=== PATIENT | female | born 1960 | race Caucasian/White ===

== ENCOUNTER → 2016-12-29 | Outpatient (CLI) | payer OTHER ==
--- NOTE | 2016-12-29 14:47 | BD ---
EXAMINATION TYPE: MG DEXA axial skeleton. DATE OF EXAM: 12/29/2016 1:14 PM CLINICAL HISTORY: Height: 63.5 Weight: 113 FRAX RISK QUESTIONS: Alcohol (3 or more units per day): no Family History (Parent hip fracture): no Glucocorticoids (More than 3mos): yes, off & on (Ex: prednisone, prednisolone, methylprednisolone, dexamethasone, and hydrocortisone). History of Fracture in Adulthood: yes Secondary Osteoporosis: 1. Type 1 Diabetes: no 2. Hyperthyroidism: no 3. Menopause before 45: no 4. Malnutrition: no 5. Chronic liver disease: no Rheumatoid Arthritis: unsure, was just tested Current Tobacco Use: yes RISK FACTORS HISTORY OF: History of Fracture: yes, bilateral femurs in AA When: young adult Surgery to Hip(right/left): yes, both had femoral rods, now removed When: young adult Family History of Osteoporosis: yes, sister Drink Alcohol: no Active: yes Diet low in dairy products/other sources of calcium: at least one serving a day Postmenopausal woman: yes Take estrogen and/or progesterone medications: no Lost more than 2 inches in height since high school: no Frequent falls: yes Poor Health: somewhat Hyperparathyroidism: no Adrenal Insufficiency: no MEDICATIONS: Prednisone or other steroids: yes How Long: at least since 2004 Thyroid Medications: no Osteoporosis Medications: not now Which medication: Fosamax How Lon-4 years Additional Medications: calcium & Vitamin D(as a prescription), cholesterol meds, blood pressure meds , Additional History: ulcerative colitis, MS, degenerative disc, bronchial attacks, back injections of steroids EXAM MEASUREMENTS: Bone mineral densitometry was performed using the [employer] System. Bone mineral density as measured about the Lumbar spine is: ----- L1-L4(G/cm2): 0.906 T Score Values are as follows: ----- L2: -2.7 ----- L3: -2.5 ----- L4: -2.4 ----- L1-L4: -2.3 Bone mineral density has: Decreased -9.9% since study of: 04/06/2005 IMPRESSION: Osteoporosis (T Score less than -2.5) as noted by T Score values at the L3 & L4 There is increased fracture risk and therapy is usually indicated based on age. Re-Screen 1-2 years. NOTE: T-SCORE=SD OF THE YOUNG ADULT MEAN.
--- NOTE | 2016-12-30 08:17 | MM ---
Reason for exam: screening (asymptomatic). Last mammogram was performed 1 year and 2 months ago. History: Patient is postmenopausal. Family history of breast cancer in sister at age 57. Took hormonal contraceptives for 5 years. Physical Findings: A clinical breast exam by your physician is recommended on an annual basis and results should be correlated with mammographic findings. MG Screening Mammo w CAD Bilateral CC and MLO view(s) were taken. Prior study comparison: October 28, 2015, bilateral MG screening mammo w CAD. July 09, 2014, bilateral MG screening mammo w CAD. The breast tissue is heterogeneously dense. This may lower the sensitivity of mammography. Finding: There are grouped/clustered calcifications in the left breast. New finding since October 28, 2015 and July 09, 2014. ASSESSMENT: Incomplete: need additional imaging evaluation, BI-RAD 0 RECOMMENDATION: Special view mammogram of the left breast. [facility] will attempt to contact patient to return for supplemental views.
== END | disposition home or self-care (01) ==
LOC: RADMAMWWP 12:01
PROVIDERS: ATTEND Pediatrics
DX: Z12.31 Encounter for screening mammogram for malignant neoplasm of breast (principal); M81.0 Age-related osteoporosis without current pathological fracture
CPT/HCPCS: 77080; G0202

== ENCOUNTER → 2017-01-05 | Outpatient (CLI) | payer OTHER ==
--- NOTE | 2017-01-05 14:14 | MM ---
Reason for exam: additional evaluation requested from abnormal screening. Last mammogram was performed less than 1 month ago. History: Patient is postmenopausal. Family history of breast cancer in sister at age 57. Took hormonal contraceptives for 5 years. Physical Findings: Nurse did not find any significant physical abnormalities on exam. MG Work Up Mamm w CAD LT CC and MLO view(s) were taken of the left breast. Prior study comparison: December 29, 2016, bilateral MG screening mammo w CAD. October 28, 2015, bilateral MG screening mammo w CAD. No suspicious grouped calcifications persists on additional views. Dense tissue noted. These results were verbally communicated with the patient and result sheet given to the patient on 01/05/17. ASSESSMENT: Incomplete: need additional imaging evaluation, BI-RAD 0 RECOMMENDATION: Ultrasound of the left breast. (dense tissue and pain)
--- NOTE | 2017-01-05 14:23 | USB ---
Reason for exam: additional evaluation requested from abnormal screening. History: Patient is postmenopausal. Family history of breast cancer in sister at age 57. Took hormonal contraceptives for 5 years. US Breast Workup Limited LT Left breast ultrasound demonstrates no cystic or solid lesion seen. These results were verbally communicated with the patient and result sheet given to the patient on 01/05/17. ASSESSMENT: Negative, BI-RAD 1 RECOMMENDATION: Return to routine screening mammogram schedule for both breasts. Manage patient on a clinical basis.
== END | disposition home or self-care (01) ==
LOC: RADMAMWWP 13:08
PROVIDERS: ATTEND Pediatrics
DX: R92.8 Other abnormal and inconclusive findings on diagnostic imaging of breast (principal)
CPT/HCPCS: 76642; G0206

== ENCOUNTER → 2017-07-20 | Outpatient (CLI) | payer OTHER ==
--- NOTE | 2017-07-20 14:01 | MR ---
EXAMINATION TYPE: MR cspine/tspine/lspine wo con DATE OF EXAM: 07/20/2017 1:15 PM COMPARISON: NONE HISTORY: Cervicalgia , Tsp pain, Lumbago Multiplanar MultiSpin echo imaging of the cervical spine was performed. Comparison: August 28, 2015 C2-C3: No evidence for degenerative disc disease. No disc bulge/herniation or protrusion. No Canal stenosis. Foramina are patent bilaterally. C3-C4: No evidence for degenerative disc disease. No disc bulge/herniation or protrusion. No Canal stenosis. Foramina are patent bilaterally. C4-C5: There is mild disc desiccation. Mild posterocentral disc bulge noted. No disc herniation or pr otrusion. Grade 1 anterolisthesis of C4 on C5 of 3 mm related to degenerative changes of the cervical apophyseal joints. C5-C6: Mild to moderate disc desiccation with posterior disc bulge. Mild effacement ventral thecal sa c. No evidence for cord contact or central stenosis. Mild left foraminal encroachment secondary to de generative change of the cervical apophyseal joints. C6-C7: Mild disc desiccation with small left paracentral disc protrusion. Mild effacement ventral the jos sac. No evidence for cord contact or central stenosis. Mild right foraminal encroachment. C7-T1: No evidence for degenerative disc disease. No disc bulge/herniation or protrusion. No Canal stenosis. Foramina are patent bilaterally. Cervical segments are intact. Cervical spinal cord is of normal signal. Craniovertebral junction re lationships are within normal limits. IMPRESSION: 1. Stable degenerative disc disease with small disc protrusion at C6-7 with Varying degrees of forami nal encroachment. See above. EXAMINATION TYPE: MR cspine/tspine/lspine wo con DATE OF EXAM: 07/20/2017 1:15 PM COMPARISON: 12/17/2014 HISTORY: Cervicalgia , Tsp pain, Lumbago Multiplanar MultiSpin echo imaging of the thoracic spine was performed. Disc spaces: T4-5: There is a mild central and left paracentral disc bulge This is effacing the thecal sac without definite neural compression. T5-6: There is a right paracentral disc protrusion deforming the thecal sac with minimal cord contact and mild posterior displacement. T6-7: There is a tiny, right paracentral disc protrusion the effacing and mildly deforming the thecal sac without cord contact. T7-T8 :There is a right paracentral disc protrusion deforming the thecal sac without definite neural compression. T8-T9 There is a small, central and left paracentral disc protrusion mildly deforming the thecal sac without definite neural compression. Overall the appearance is unchanged relative to the prior study. No additional disc pathology is seen . Spinal canal: No evidence for canal stenosis. No intrinsic or extrinsic lesion. Thoracic spinal cord: Thoracic spinal cord is of normal caliber and signal. Paraspinal soft tissues: No evidence for paraspinal mass. No destructive lesions seen. Vertebral segments: No evidence for fracture or bony lesion. IMPRESSION: 1. Stable multilevel degenerative disc disease with varying disc protrusions as noted. No definite co rd abnormality. EXAMINATION TYPE: MR cspine/tspine/lspine wo con DATE OF EXAM: 07/20/2017 1:15 PM COMPARISON: 03/13/2011 HISTORY: Cervicalgia , Tsp pain, Lumbago Multiplanar, MultiSpin echo imaging of the lumbar spine was performed. L1-L2: Normal disc appearance without desiccation. No herniation, protrusion or disc bulging. No ca nal stenosis is present. Foramina are patent bilaterally. L2-L3: Normal disc appearance without desiccation. No herniation, protrusion or disc bulging. No ca nal stenosis is present. Foramina are patent bilaterally. L3-L4: Normal disc appearance without desiccation. No herniation, protrusion or disc bulging. No ca nal stenosis is present. Foramina are patent bilaterally. L4-L5: Mild disc desiccation noted. Left paracentral disc herniation resulting in left lateral recess stenosis and left foraminal encroachment. No evidence for central stenosis. L5-S1: Moderate disc desiccation identified. Broad-based posterior disc bulge without lopez herniatio n or central stenosis. Foramina are patent bilaterally. Lumbar segments are intact. No paraspinal masses are identified. Conus medullaris has a normal appe arance. IMPRESSION: 1. Left paracentral disc herniation at L4-5 resulting in left lateral recess stenosis and foraminal e ncroachment. 2. Broad-based disc bulge at L5-S1 without lopez herniation or central stenosis.
== END | disposition home or self-care (01) ==
LOC: RADMRIMAIN 11:50
PROVIDERS: ATTEND Psychiatry & Neurology Pain Medicine
DX: M48.06 Spinal stenosis, lumbar region (principal); M51.27 Other intervertebral disc displacement, lumbosacral region; M50.223 Other cervical disc displacement at C6-C7 level; M51.24 Other intervertebral disc displacement, thoracic region; M50.30 Other cervical disc degeneration, unspecified cervical region; M51.34 Other intervertebral disc degeneration, thoracic region
CPT/HCPCS: 72141; 72146; 72148

== ENCOUNTER → 2017-08-27 | Outpatient (CLI) | payer OTHER ==
[2017-08-27 16:15] LABS: AST 35 U/L (14-36); Blood Urea Nitrogen 10 mg/dL (7-17); CH 34.5; CHCM 32.6; Calcium 8.9 mg/dL (8.4-10.2); Carbon Dioxide 31 mmol/L (22-30); Glucose 90 mg/dL (74-99); HCT 42.2 % (34.0-46.0); HDW 2.24; MCH 35.4 pg (25.0-35.0); MCHC 33.2 g/dL (31.0-37.0); MCV 106.4 fL (80.0-100.0); Macrocytosis Moderate; Mean Platelet Volume 8.7; Non-African American GFR(MDRD) >60 (>60 ml/min/1.73 sqM); Potassium 4.9 mmol/L (3.5-5.1); RBC 3.97 m/uL (3.80-5.40); RDW 14.1 % (11.5-15.5); Sodium 136 mmol/L (137-145); Total Bilirubin 0.2 mg/dL (0.2-1.3); Total Protein 6.4 g/dL (6.3-8.2); WBC 13.1 k/uL (3.8-10.6)
[2017-08-27 16:16] LABS: ALT 39 U/L (9-52); Alkaline Phosphatase 104 U/L (38-126); Anion Gap 8 mmol/L; Chloride 97 mmol/L (98-107)
[2017-08-27 16:41] LABS: Hepatitis B Surface Ag Index 0.07
== END | disposition home or self-care (01) ==
LOC: LABWHC1 14:56
PROVIDERS: ATTEND Psychiatry & Neurology Neurology
DX: Z01.812 Encounter for preprocedural laboratory examination (principal); G35 Multiple sclerosis
CPT/HCPCS: 36415; 80053; 85027; 86704; 86705; 86706; 87340

== ENCOUNTER → 2017-12-24 | Outpatient (CLI) | payer OTHER ==
[2017-12-24 17:00] LABS: Basophils % (A) 0 %; Eosinophils # (A) 0.1 k/uL (0-0.7); Eosinophils % (A) 1 %; HGB 13.1 gm/dL (11.4-16.0); Lymphocytes # (A) 0.8 k/uL (1.0-4.8); Lymphocytes % (A) 10 %; MCH 33.4 pg (25.0-35.0); MCHC 32.6 g/dL (31.0-37.0); MCV 102.5 fL (80.0-100.0); Macrocytosis Slight; Mean Platelet Volume 8.9; Monocytes # (A) 0.2 k/uL (0-1.0); Monocytes % (A) 3 %; Neutrophils # (A) 6.7 k/uL (1.3-7.7); Neutrophils % (A) 86 %; Platelet Count 218 k/uL (150-450); RDW 13.5 % (11.5-15.5); WBC 7.8 k/uL (3.8-10.6)
[2017-12-24 17:14] LABS: ALT 45 U/L (9-52); AST 50 U/L (14-36); Albumin 4.1 g/dL (3.5-5.0); Alkaline Phosphatase 91 U/L (38-126); Anion Gap 10 mmol/L; Blood Urea Nitrogen 6 mg/dL (7-17); Calcium 9.5 mg/dL (8.4-10.2); Carbon Dioxide 29 mmol/L (22-30); Chloride 103 mmol/L (98-107); Cholesterol 205 mg/dL (<200); Glucose 102 mg/dL (74-99); HDL Cholesterol 76 mg/dL (40-60); LDL Cholesterol,Calculated 98 mg/dL (0-99); Potassium 4.3 mmol/L (3.5-5.1); Sodium 142 mmol/L (137-145); Total Bilirubin 0.2 mg/dL (0.2-1.3); Total Protein 6.7 g/dL (6.3-8.2); Triglycerides 153 mg/dL (<150)
[2017-12-25 01:15] LABS: HIV AB P24 Non-Reactive (Non-Reactive); HIV P24 AG Non-Reactive (Non-Reactive)
[2017-12-25 01:19] LABS: Hemoglobin A1C 5.8 % (4.0-6.0)
[2017-12-25 02:02] LABS: Folate, Serum 18.5 ng/mL
[2017-12-27 07:36] LABS: Vitamin B1 76 ug/L (38-122)
[2017-12-27 08:48] LABS: Vitamin B6 16 ug/L (5-50)
[2018-01-01 07:06] LABS: Nicotinuric Acid None Detected
== END | disposition home or self-care (01) ==
LOC: LABWHC1 16:31
PROVIDERS: ATTEND Psychiatry & Neurology Pain Medicine
DX: Z00.00 Encounter for general adult medical examination without abnormal findings (principal); E78.5 Hyperlipidemia, unspecified; G35 Multiple sclerosis; Z51.81 Encounter for therapeutic drug level monitoring
CPT/HCPCS: 36415; 80053; 80061; 82607; 82746; 83036; 84207; 84425; 84591; 85025; 86480; 87390

== ENCOUNTER → 2018-03-23 | Outpatient (CLI) | payer OTHER ==
--- NOTE | 2018-03-23 14:16 | US ---
EXAMINATION TYPE: US carotid duplex BILAT DATE OF EXAM: 03/23/2018 COMPARISON: NONE CLINICAL HISTORY: R55 SYNCOPE. EXAM MEASUREMENTS: RIGHT: Peak Systolic Velocity (PSV) cm/sec ----- Right CCA: 91.7 ----- Right ICA: 91.3 ----- Right ECA: 71.5 ICA/CCA ratio: 1.0 RIGHT: End Diastole cm/sec ----- Right CCA: 23.5 ----- Right ICA: 40.8 ----- Right ECA: 15.9 LEFT: Peak Systolic Velocity (PSV) cm/sec ----- Left CCA: 75.3 ----- Left ICA: 114.1 ----- Left ECA: 66.9 ICA/CCA ratio: 1.5 LEFT: End Diastole cm/sec ----- Left CCA: 28.5 ----- Left ICA: 44.6 ----- Left ECA: 23.2 VERTEBRALS (direction of flow): Right Vertebral: Antegrade Left Vertebral: Antegrade Rhythm: IMPRESSION: 1. Intimal thickening and mild atherosclerotic plaque with no significant hemodynamic stenosis. Criteria for Assigning % of Stenosis / Diameter reduction (Estimation based on the indirect measurements of the internal carotid artery velocities (ICA PSV). 1. Normal (no stenosis)=ICA PSV < 125 cm/s: ratio < 2.0: ICA EDV<40 cm/s. 2. Less than 50% stenosis=ICA PSV < 125 cm/s: ratio < 2.0: ICA EDV<40 cm/s. 3. 50 to 69% stenosis=ICA PSV of 125 to 230 cm/s: ration 2.0 ? 4.0: ICA EDV 40-100 cm/s. 4. Greater than 70% stenosis to near occlusion= ICA PSV > 230 cm/s: ratio > 4.0: ICA EDV > 100 cm/s. 5. Near occlusion= ICA PSV velocities may be low or undetectable: variable ratio and ICA EDV. 6. Total occlusion=unable to detect flow.
== END | disposition home or self-care (01) ==
LOC: RADUSWWP 13:04
PROVIDERS: ATTEND Psychiatry & Neurology Neurology
DX: I77.89 Other specified disorders of arteries and arterioles (principal); I70.0 Atherosclerosis of aorta
CPT/HCPCS: 93880

== ENCOUNTER → 2018-03-23 | Outpatient (CLI) | payer OTHER ==
[2018-03-23 13:10] LABS: Blood Urea Nitrogen 7 mg/dL (7-17)
== END | disposition home or self-care (01) ==
LOC: LABWHC1 12:39
PROVIDERS: ATTEND Psychiatry & Neurology Pain Medicine
DX: G35 Multiple sclerosis (principal)
CPT/HCPCS: 36415; 82565; 84520

== ENCOUNTER → 2018-04-08 | Outpatient (CLI) | payer OTHER ==
--- NOTE | 2018-04-08 09:39 | MR ---
EXAMINATION TYPE: MR brain wo/w con DATE OF EXAM: 04/08/2018 COMPARISON: 06/10/2016 HISTORY: MS TECHNIQUE: Multiplanar multisequence pre and postcontrast MRI performed following administration 7 mL Gadavist. FINDINGS: T2 White Matter Lesions Present : Yes Approximate Number of Lesions: Approximately 5 on each side. Locations Identified : Subcortical Size of Largest Lesion(s): 1. 0.6 x 0.3 by 0.7 cm. Location: Right west radiata. This is stable in size and appearance from the prior study. 2. 0.3 x 0.4 cm. Location: Subcortical anterior right temporal lobe. This may be larger than the c omparison study but was present previously. Remaining white matter changes are stable in size and appearance from the comparison study Enhancing Lesion(s) Present: No Change from Prior: Stable Diffusion weighted images demonstrate no evidence of a recent infarct or other diffusion abnormality. Midline structures demonstrate normal morphology. The craniocervical junction appears within normal limits. Post contrast images demonstrate no abnormal enhancement. The dural venous sinuses appear pa tent. Findings compatible with chronic sinusitis. IMPRESSION: 1. Stable bilateral white matter changes which are nonspecific. Findings could be compatible with dem yelinating process or remote ischemia. Correlate clinically. 2. No enhancing lesions or new lesions identified. 3. There is a 4 mm area of signal void along the cavernous segment of the right ICA. This may be rela lindy to vascular ectasia. Recommend correlation with MRA [place] exclude small aneurysm.
== END | disposition home or self-care (01) ==
LOC: RADMRIMAIN 07:12
PROVIDERS: ATTEND Psychiatry & Neurology Neurology
DX: R90.89 Other abnormal findings on diagnostic imaging of central nervous system (principal); G35 Multiple sclerosis
CPT/HCPCS: 70553; A9581

== ENCOUNTER → 2018-05-05 | Outpatient (CLI) | payer OTHER ==
--- NOTE | 2018-05-05 13:35 | MR ---
EXAMINATION TYPE: MR angio head wo con DATE OF EXAM: 05/05/2018 COMPARISON: Brain MRI with and without contrast dated 04/08/2018 HISTORY: Abnormal findings on diagnostic imaging TECHNIQUE: Time of flight images focusing on the [place] were performed without contrast.. 2-D and 3-D postprocessing imaging is performed. FINDINGS: There is normal variant anatomy. There is a partial azygos anterior cerebral artery was sma ll left anterior cerebral artery that joins the right anterior cerebral artery (dominant). This singl e anterior cerebral artery then bifurcates more distally. Also incidentally noted the [place] is incomplete as the posterior communicating arteries do not appear to join the posterior circulati on. The left vertebral artery is mildly dominant. There is no evidence of focal stenosis, aneurysmal outpouching or dissection within intracranial vasc ulature as visualized. The previously seen questionable abnormality within the right cavernous portio n of the internal carotid artery is not redemonstrated on MRA. IMPRESSION: Normal variant anatomy with an incomplete [place]. No evidence of intracranial a neurysm, focal dissection, or occlusion. The previously seen abnormality on the MR dated 04/08/2018 do es not persist on MRA and is thought to be artifactual on the prior exam.
== END | disposition home or self-care (01) ==
LOC: RADMRIMAIN 07:44
PROVIDERS: ATTEND Psychiatry & Neurology Neurology
DX: R93.8 Abnormal findings on diagnostic imaging of other specified body structures (principal)
CPT/HCPCS: 70544

== ENCOUNTER → 2018-05-25 | Outpatient (CLI) | payer OTHER ==
[2018-05-25 21:12] LABS: Hepatitis B Core IgM Non-Reactive (Non-Reactive); Hepatitis B Surface AB- Quant 3.5 mIU/mL
== END | disposition home or self-care (01) ==
LOC: LABWHC1 14:47
PROVIDERS: ATTEND Psychiatry & Neurology Pain Medicine
DX: Z51.81 Encounter for therapeutic drug level monitoring (principal); G35 Multiple sclerosis
CPT/HCPCS: 36415; 86704; 86705; 86706; 87340

== ENCOUNTER → 2018-08-02 | Outpatient (CLI) | payer OTHER ==
[2018-08-02 14:34] LABS: T4, Free (Free Thyroxine) 1.08 ng/dL (0.78-2.19)
== END | disposition home or self-care (01) ==
LOC: LABWHC1 13:10
PROVIDERS: ATTEND Psychiatry & Neurology Pain Medicine
DX: G35 Multiple sclerosis (principal); Z51.81 Encounter for therapeutic drug level monitoring
CPT/HCPCS: 36415; 82306; 84439; 84443; 84481

== ENCOUNTER → 2019-08-30 | Outpatient (CLI) | payer OTHER ==
--- NOTE | 2019-08-30 15:00 | ECHOF ---
Referral Reason:R55 Syncope MEASUREMENTS -------- HEIGHT: 165.1 cm WEIGHT: 61.2 kg BP: 164/91 RVIDd: 2.9 cm (< 3.3) IVSd: 1.0 cm (0.6 - 1.1) LVIDd: 4.1 cm (3.9 - 5.3) LVPWd: 1.1 cm (0.6 - 1.1) IVSs: 1.3 cm LVIDs: 2.9 cm LVPWs: 1.2 cm LA Diam: 3.2 cm (2.7 - 3.8) LAESV Index (A-L): 27.23 ml/m Ao Diam: 2.8 cm (2.0 - 3.7) AV Cusp: 2.1 cm (1.5 - 2.6) MV EXCURSION: 16.074 mm (> 18.000) MV EF SLOPE: 38 mm/s (70 - 150) EPSS: 0.3 cm MV E Ayden: 0.62 m/s MV DecT: 275 ms MV A [place]: 0.65 m/s MV E/A Ratio: 0.96 AR PHT: 671 ms RAP: 5.00 mmHg RVSP: 29.49 mmHg TAPSE: 18.87 mm FINDINGS -------- Sinus rhythm. This was a technically good study. The left ventricular size is normal. There is borderline concentric left ventricular hypertrophy. Overall left ventricular systolic function is normal with, an EF between 60 - 65 %. The right ventricle is normal in size. Normal LA size by volume 22+/-6 ml/m2. The right atrium is normal in size. Interatrial and interventricular septum intact. There is mild aortic valve sclerosis. There is mild aortic regurgitation. The mitral valve is normal. Mild tricuspid regurgitation present. Right ventricular systolic pressure is normal at < 35 mmHg. Trace/mild (physiologic) pulmonic regurgitation. The aortic root size is normal. Normal inferior vena cava with normal inspiratory collapse consistent with estimated right atrial pre ssure of 5 mmHg. There is no pericardial effusion. CONCLUSIONS -------- 1. Sinus rhythm. 2. This was a technically good study. 3. The left ventricular size is normal. 4. There is borderline concentric left ventricular hypertrophy. 5. Overall left ventricular systolic function is normal with, an EF between 60 - 65 %. 6. The right ventricle is normal in size. 7. Normal LA size by volume 22+/-6 ml/m2. 8. The right atrium is normal in size. 9. Interatrial and interventricular septum intact. 10. There is mild aortic valve sclerosis. 11. There is mild aortic regurgitation. 12. The mitral valve is normal. 13. Mild tricuspid regurgitation present. 14. Right ventricular systolic pressure is normal at < 35 mmHg. 15. Trace/mild (physiologic) pulmonic regurgitation. 16. The aortic root size is normal. 17. Normal inferior vena cava with normal inspiratory collapse consistent with estimated right atrial pressure of 5 mmHg. 18. There is no pericardial effusion. LIBRARY SERVICES COORDINATOR: Janelle Brennan RDCS
== END ==
LOC: RADECHMAIN 12:03
PROVIDERS: ATTEND Pediatrics
DX: I08.2 Rheumatic disorders of both aortic and tricuspid valves (principal); I37.1 Nonrheumatic pulmonary valve insufficiency
CPT/HCPCS: 93270; 93306

== ENCOUNTER → 2019-09-25 | Outpatient (CLI) | payer OTHER ==
--- NOTE | 2019-09-27 09:23 | MM ---
Reason for exam: screening (asymptomatic). Last mammogram was performed 2 years and 9 months ago. History: Patient is postmenopausal. Family history of breast cancer in sister at age 57. Took hormonal contraceptives for 5 years. Physical Findings: A clinical breast exam by your physician is recommended on an annual basis and results should be correlated with mammographic findings. MG Screening Mammo w CAD Bilateral CC and MLO view(s) were taken. Prior study comparison: January 05, 2017, left breast MG work up mamm w CAD LT. December 29, 2016, bilateral MG screening mammo w CAD. Asymmetric density centrally right MLO view anteriorly to middle depth appears more defined. ASSESSMENT: Incomplete: need additional imaging evaluation, BI-RAD 0 RECOMMENDATION: Special view mammogram of the right breast. (3D) If lesion persists on supplemental views, image directed ultrasound is recommended. [facility] will attempt to contact patient to return for supplemental views and ultrasound if indicated.
== END | disposition home or self-care (01) ==
LOC: RADMAMWWP 13:42
PROVIDERS: ATTEND Pediatrics
DX: Z12.31 Encounter for screening mammogram for malignant neoplasm of breast (principal)
CPT/HCPCS: 77067

== ENCOUNTER → 2019-10-06 | Outpatient (CLI) | payer OTHER ==
--- NOTE | 2019-10-09 08:46 | MM ---
Reason for exam: additional evaluation requested from abnormal screening. Last mammogram was performed less than 1 month ago. History: Patient is postmenopausal. Family history of breast cancer in sister at age 57. Took hormonal contraceptives for 5 years. Physical Findings: Nurse did not find any significant physical abnormalities on exam. MG Work Up Mamm w CAD RT Spot compression CC, spot compression MLO, and LM view(s) were taken of the right breast. Prior study comparison: September 25, 2019, bilateral MG screening mammo w CAD. January 05, 2017, left breast MG work up mamm w CAD LT. The breast tissue is heterogeneously dense. This may lower the sensitivity of mammography. Benign appearing calcifications in the right breast. The previously seen abnormality resolves on additional views and appears as fibroglandular tissue compatible with summation. These results were verbally communicated with the patient and result sheet given to the patient on 10/06/19. ASSESSMENT: Benign, BI-RAD 2 RECOMMENDATION: Return to routine screening mammogram schedule for both breasts.
== END | disposition home or self-care (01) ==
LOC: RADMAMWWP 15:16
PROVIDERS: ATTEND Pediatrics
DX: R92.8 Other abnormal and inconclusive findings on diagnostic imaging of breast (principal)
CPT/HCPCS: 77065

== ENCOUNTER → 2020-01-03 | Outpatient (CLI) | payer OTHER ==
[2020-01-03 16:39] LABS: Basophils # (A) 0.1 k/uL (0-0.2); Basophils % (A) 1 %; Eosinophils # (A) 0.4 k/uL (0-0.7); Eosinophils % (A) 4 %; HGB 12.7 gm/dL (11.4-16.0); Hypochromasia Slight; Lymphocytes # (A) 2.7 k/uL (1.0-4.8); Lymphocytes % (A) 30 %; MCH 32.6 pg (25.0-35.0); MCHC 32.5 g/dL (31.0-37.0); MCV 100.3 fL (80.0-100.0); Mean Platelet Volume 10.2; Monocytes # (A) 0.4 k/uL (0-1.0); Monocytes % (A) 5 %; Neutrophils # (A) 5.3 k/uL (1.3-7.7); Neutrophils % (A) 59 %; Platelet Count 239 k/uL (150-450); RBC 3.89 m/uL (3.80-5.40); RDW 13.8 % (11.5-15.5); WBC 9.1 k/uL (3.8-10.6)
[2020-01-04 00:11] LABS: T4, Free (Free Thyroxine) 1.2 ng/dL (0.80-1.80)
[2020-01-04 00:24] LABS: Hepatitis B Core IgM Non-Reactive (Non-Reactive); Hepatitis B Surface AB- Quant 3.5 mIU/mL; Hepatitis B Surface Antibody Non-Reactive (Non-Reactive); Hepatitis B Surface Antigen Non-Reactive (Non-Reactive)
[2020-01-04 00:54] LABS: African American GFR (CKD) 94.2 (60.0-200.0); Albumin 4.4 g/dL (3.80-4.90); Albumin/Globulin Ratio 2.44 (1.60-3.17); Anion Gap 8.7 mmol/L (4.00-12.00); Calcium 8.8 mg/dL (8.7-10.3); Carbon Dioxide 30.3 mmol/L (21.6-31.8); Globulin 1.8 g/dL (1.6-3.3); Non-African American GFR(CKD) 81.3 (60.0-200.0); Potassium 4.2 mmol/L (3.5-5.5); Total Bilirubin 0.1 mg/dL (0.3-1.2); Total Protein 6.2 g/dL (6.2-8.2)
[2020-01-04 01:24] LABS: Hemoglobin A1C 5.8 % (4.0-6.0)
[2020-01-04 10:18] LABS: V. zoster Source Blood - EDTA
[2020-01-05 10:48] LABS: Vit B1(Thiamine) 59 ug/L (38-122)
== END | disposition home or self-care (01) ==
LOC: LABWHC1 15:18
PROVIDERS: ATTEND Psychiatry & Neurology Pain Medicine
DX: G35 Multiple sclerosis (principal)
CPT/HCPCS: 36415; 80053; 82306; 82607; 83036; 84207; 84425; 84439; 84443; 84481; 84591; 85025; 86704; 86705; 86706; 86790; 87340; 87798

== ENCOUNTER → 2020-06-20 | Outpatient (CLI) | payer OTHER | END | disposition home or self-care (01) | LOC: LABWHC1 10:25 | PROVIDERS: ATTEND Pediatrics | DX: R05 Cough (principal) | CPT/HCPCS: U0003; C9803 ==

== ENCOUNTER 2020-06-30 21:49 | Observation (INO) | payer OTHER ==
[2020-06-30] MEDS ORDERED: SODIUM CHLORIDE 0.9% 500 ML 500 ML IV STA (22:21)
--- NOTE | 2020-06-30 22:21 | ED ---
SOB HPI - General Chief Complaint: Shortness of Breath Stated Complaint: KAYLA Time Seen by Provider: 06/30/20 22:20 Source: patient Mode of arrival: EMS Limitations: no limitations - History of Present Illness Initial Comments: Kaci is a 59 yo female who presents urgency department today via private vehicle for evaluation of shortness of breath. Patient reports that for the past one to 2 week she's had a cough and progressively worsening shortness of breath. She had an outpatient COVID test last week which was negative. She states that despite the negative test she continues to feel short of breath and have a nonproductive cough. She states that she was a smoker up until she developed this cough and hasn't been smoking lately due to her shortness of breath. She denies any chest pain. She does report fevers with it T-max of 101.9 earlier this week but no fevers for the past 48 hours. She states that she's tried using updrafts with no improvement in her shortness of breath or cough. She denies any exertional chest pain but reports pain in the right side of her ribs when she coughs. - Related Data Home Medications Medication Instructions Recorded Confirmed Acyclovir 400 mg PO DAILY PRN 12/10/14 07/21/17 Ascorbic Acid [Vitamin C] 500 mg PO DAILY@1200 12/10/14 07/21/17 Atorvastatin [Lipitor] 40 mg PO HS 12/10/14 07/21/17 Baclofen [Lioresal] 20 mg PO TID 12/10/14 07/21/17 Buta/APAP/Caf/Cod 82-319-46-30 1 each PO Q4H 12/10/14 07/21/17 [Fioricet w/Cod 49-022-17-30MG] Cetirizine HCl [Zyrtec] 10 mg PO DAILY 12/10/14 07/21/17 Clobetasol Propionate [Temovate 1 applic TOPICAL RT-BID PRN 12/10/14 07/21/17 0.05% Cream] Diphenox-Atrop 2.5-0.025 mg 2.5 mg PO QID PRN 12/10/14 07/21/17 [Lomotil] Fluticasone Propionate [Flonase] 1 spray EA NOSTRIL DAILY 12/10/14 07/21/17 Pregabalin [Lyrica] 150 mg PO BID 12/10/14 07/21/17 Verapamil HCl [Verapamil ER] 240 mg PO DAILY 12/10/14 07/21/17 clonazePAM [Clonazepam] 1 mg PO DAILY 12/10/14 07/21/17 traMADol HCl [Ultram] 50 mg PO Q6H PRN 12/10/14 07/21/17 Biotin 5 mg PO DAILY 09/22/15 07/21/17 Cholecalciferol [Vitamin D3 (25 5,000 unit PO DAILY@1200 09/22/15 07/21/17 Mcg = 1000 Iu)] HYDROcodone/APAP 10-325MG [[place] 1 each PO Q6H 09/22/15 07/21/17 10-325] L.acidoph,Paracasei, B.lactis 1 each PO DAILY 09/22/15 07/21/17 [Probiotic] SUMAtriptan succinate [Imitrex] 50 mg PO DAILY PRN 09/22/15 07/21/17 Temazepam [Restoril] 15 mg PO HS PRN 09/22/15 07/21/17 diphenhydrAMINE [Benadryl] 25 mg PO DAILY PRN 09/22/15 07/21/17 Metoprolol Tartrate [Lopressor] 50 mg PO DAILY 09/24/15 07/21/17 Previous Rx's Medication Instructions Recorded Albuterol Nebulized [Ventolin 2.5 mg INHALATION Q6H #120 nebu 09/26/15 Nebulized] Azithromycin [Zithromax] 500 mg PO DAILY #5 tab 09/26/15 Beclomethasone Dipropionate [Qvar 2 puff INHALATION BID #1 inhaler 09/26/15 80 mcg/puff] Ipratropium Nebulized [Atrovent 0.5 mg INHALATION Q6HR #120 neb 09/26/15 Nebulized] Nicotine 21Mg/24Hr Patch [Habitrol] 1 patch TRANSDERM DAILY #30 patch 09/26/15 predniSONE 10 mg PO DIRECTED #40 tab 09/26/15 Allergies Allergy/AdvReac Type Severity Reaction Status Date / Time No Known Allergies Allergy Verified 07/21/17 13:52 Review of Systems ROS Statement: Those systems with pertinent positive or pertinent negative responses have been documented in the HPI. ROS Other: All systems not noted in ROS Statement are negative. Past Medical History Past Medical History: Hyperlipidemia, Hypertension, Musculoskeletal Disorder Additional Past Medical History / Comment(s): migraines, ulcerative colitis, lumbar degenerative disc, fibromyalgia, MS History of Any Multi-Drug Resistant Organisms: None Reported Past Surgical History: Tubal Ligation Additional Past Surgical History / Comment(s): fx femurs, facial surgery, deviat ed septum, AJITH and RFA to neck and back Past Anesthesia/Blood Transfusion Reactions: No Reported Reaction Past Psychological History: Anxiety, Depression Smoking Status: Current every day smoker Past Alcohol Use History: Rare Past Drug Use History: None Reported - Past Family History Sister(s) Family Medical History: Cancer Additional Family Medical History / Comment(s): breast General Exam - General Exam Comments Initial Comments: Physical Exam GENERAL: Chronically ill-appearing female who appears much older than stated age HENT: Normocephalic, Atraumatic. EYES: PERRL, EOMI PULMONARY: Tachypnea No wheezing or rales Tenderness on the right rib cage CARDIOVASCULAR: There is a regular rate and rhythm without any murmurs gallops or rubs. ABDOMEN: Soft and nontender with normal bowel sounds. SKIN: Skin is clear with no lesions or rashes and otherwise unremarkable. : Deferred NEUROLOGIC: Patient is alert and oriented x3. Moving all extremities spontaneously MUSCULOSKELETAL: Normal extremities with adequate strength and full range of motion. No lower extremity swelling or edema. No calf tenderness. PSYCHIATRIC: Normal psychiatric evaluation. Limitations: no limitations Course Vital Signs 06/30/20 06/30/20 06/30/20 22:00 22:04 23:39 Temperature 98 F Pulse Rate 80 93 Respiratory 16 24 16 Rate Blood Pressure 127/83 145/88 O2 Sat by Pulse 99 Oximetry 07/01/20 00:27 Temperature Pulse Rate 75 Respiratory 16 Rate Blood Pressure 149/89 O2 Sat by Pulse 98 Oximetry Medical Decision Making - Medical Decision Making Patient was seen and evaluated upon arrival in the emergency department history is obtained from patient 59-year-old female with nearly 2 weeks of shortness of breath has a nonproduct harmony harsh cough, patient had no hypoxia but was very anxious and hyperventilating was given a nonrebreather mask oxygen saturation noted to be 100% Labs and imaging were ordered initial chest x-ray is relatively unremarkable labs with multiple significant abnormalities including leukocytosis, anemia, elevated d-dimer and lactic acidosis CTA of the chest was ordered to evaluate for pulmonary embolism and resulted with evidence of multiple masses in the lungs, these results were discussed with the patient and her son at bedside. I advised patient the possibility that this could be a malignancy, Asians states that she always has abnormalities on her brain scans from her MS and thinks it may be her lung scans abnormalities due to her MS as well. I advised her to unlikely that this is due to MS and she needs to be admitted to the hospital for further evaluation and testing. Patient is agreeable to this. Patient will be of admitted, when necessary breathing treatments and supplemental oxygen were ordered. Pulmonology will be consult at. - Lab Data Result diagrams: 06/30/20 22:30 06/30/20 22:30 Lab Results 06/30/20 06/30/20 06/30/20 Range/Units 22:30 22:30 22:30 WBC 17.7 H (3.8-10.6) k/uL RBC 3.36 L (3.80-5.40) m/uL Hgb 10.3 L (11.4-16.0) gm/dL Hct 32.8 L (34.0-46.0) % MCV 97.6 (80.0-100.0) fL MCH 30.5 (25.0-35.0) pg MCHC 31.3 (31.0-37.0) g/dL RDW 13.8 (11.5-15.5) % Plt Count 537 H (150-450) k/uL Neutrophils % 84 % Lymphocytes % 7 % Monocytes % 7 % Eosinophils % 1 % Basophils % 0 % Neutrophils # 14.8 H (1.3-7.7) k/uL Lymphocytes # 1.2 (1.0-4.8) k/uL Monocytes # 1.3 H (0-1.0) k/uL Eosinophils # 0.1 (0-0.7) k/uL Basophils # 0.1 (0-0.2) k/uL PT 10.2 (9.0-12.0) sec INR 1.0 (<1.2) APTT 26.1 (22.0-30.0) sec D-Dimer 4.21 H (<0.60) mg/L FEU Sodium 137 (137-145) mmol/L Potassium 4.4 (3.5-5.1) mmol/L Chloride 105 (98-107) mmol/L Carbon Dioxide 19 L (22-30) mmol/L Anion Gap 13 mmol/L BUN 15 (7-17) mg/dL Creatinine 0.46 L (0.52-1.04) mg/dL Est GFR (CKD-EPI)AfAm >90 (>60 ml/min/1.73 sqM) Est GFR (CKD-EPI)NonAf >90 (>60 ml/min/1.73 sqM) Glucose 142 H (74-99) mg/dL Lactic Ac Sepsis Rflx Plasma Lactic Acid Kalen (0.7-2.0) mmol/L Calcium 8.6 (8.4-10.2) mg/dL Total Bilirubin 1.1 (0.2-1.3) mg/dL AST 40 H (14-36) U/L ALT 19 (4-34) U/L Alkaline Phosphatase 132 H (38-126) U/L Troponin I (0.000-0.034) ng/mL NT-Pro-B Natriuret Pep pg/mL Total Protein 6.4 (6.3-8.2) g/dL Albumin 3.3 L (3.5-5.0) g/dL 06/30/20 06/30/20 06/30/20 Range/Units 22:30 22:30 22:30 WBC (3.8-10.6) k/uL RBC (3.80-5.40) m/uL Hgb (11.4-16.0) gm/dL Hct (34.0-46.0) % MCV (80.0-100.0) fL MCH (25.0-35.0) pg MCHC (31.0-37.0) g/dL RDW (11.5-15.5) % Plt Count (150-450) k/uL Neutrophils % % Lymphocytes % % Monocytes % % Eosinophils % % Basophils % % Neutrophils # (1.3-7.7) k/uL Lymphocytes # (1.0-4.8) k/uL Monocytes # (0-1.0) k/uL Eosinophils # (0-0.7) k/uL Basophils # (0-0.2) k/uL PT (9.0-12.0) sec INR (<1.2) APTT (22.0-30.0) sec D-Dimer (<0.60) mg/L FEU Sodium (137-145) mmol/L Potassium (3.5-5.1) mmol/L Chloride (98-107) mmol/L Carbon Dioxide (22-30) mmol/L Anion Gap mmol/L BUN (7-17) mg/dL Creatinine (0.52-1.04) mg/dL Est GFR (CKD-EPI)AfAm (>60 ml/min/1.73 sqM) Est GFR (CKD-EPI)NonAf (>60 ml/min/1.73 sqM) Glucose (74-99) mg/dL Lactic Ac Sepsis Rflx Plasma Lactic Acid Kalen 2.7 H* (0.7-2.0) mmol/L Calcium (8.4-10.2) mg/dL Total Bilirubin (0.2-1.3) mg/dL AST (14-36) U/L ALT (4-34) U/L Alkaline Phosphatase (38-126) U/L Troponin I <0.012 (0.000-0.034) ng/mL NT-Pro-B Natriuret Pep 837 pg/mL Total Protein (6.3-8.2) g/dL Albumin (3.5-5.0) g/dL 06/30/20 Range/Units 23:21 WBC (3.8-10.6) k/uL RBC (3.80-5.40) m/uL Hgb (11.4-16.0) gm/dL Hct (34.0-46.0) % MCV (80.0-100.0) fL MCH (25.0-35.0) pg MCHC (31.0-37.0) g/dL RDW (11.5-15.5) % Plt Count (150-450) k/uL Neutrophils % % Lymphocytes % % Monocytes % % Eosinophils % % Basophils % % Neutrophils # (1.3-7.7) k/uL Lymphocytes # (1.0-4.8) k/uL Monocytes # (0-1.0) k/uL Eosinophils # (0-0.7) k/uL Basophils # (0-0.2) k/uL PT (9.0-12.0) sec INR (<1.2) APTT (22.0-30.0) sec D-Dimer (<0.60) mg/L FEU Sodium (137-145) mmol/L Potassium (3.5-5.1) mmol/L Chloride (98-107) mmol/L Carbon Dioxide (22-30) mmol/L Anion Gap mmol/L BUN (7-17) mg/dL Creatinine (0.52-1.04) mg/dL Est GFR (CKD-EPI)AfAm (>60 ml/min/1.73 sqM) Est GFR (CKD-EPI)NonAf (>60 ml/min/1.73 sqM) Glucose (74-99) mg/dL Lactic Ac Sepsis Rflx Y Plasma Lactic Acid Kal[place] (0.7-2.0) mmol/L Calcium (8.4-10.2) mg/dL Total Bilirubin (0.2-1.3) mg/dL AST (14-36) U/L ALT (4-34) U/L Alkaline Phosphatase (38-126) U/L Troponin I (0.000-0.034) ng/mL NT-Pro-B Natriuret Pep pg/mL Total Protein (6.3-8.2) g/dL Albumin (3.5-5.0) g/dL Disposition Clinical Impression: Mass of lung, Leukocytosis, Anemia, Lactic acidosis, Tobacco abuse, Acute exacerbation of chronic obstructive airways disease Disposition: ADMITTED IP TO THIS HOSP Condition: Serious Is patient prescribed a controlled substance at d/c from ED?: No Referrals: Ronny Farris MD [Primary Care Provider] - 1-2 days
[2020-06-30 22:56] LABS: ALT 19 U/L (4-34); AST 40 U/L (14-36); African American GFR (CKD) >90 (>60 ml/min/1.73 sqM); Albumin 3.3 g/dL (3.5-5.0); Alkaline Phosphatase 132 U/L (38-126); Anion Gap 13 mmol/L; Blood Urea Nitrogen 15 mg/dL (7-17); Calcium 8.6 mg/dL (8.4-10.2); Carbon Dioxide 19 mmol/L (22-30); Chloride 105 mmol/L (98-107); Glucose 142 mg/dL (74-99); Non-African American GFR(CKD) >90 (>60 ml/min/1.73 sqM); Sodium 137 mmol/L (137-145); Total Bilirubin 1.1 mg/dL (0.2-1.3); Total Protein 6.4 g/dL (6.3-8.2)
[2020-06-30 22:57] LABS: Basophils # (A) 0.1 k/uL (0-0.2); Basophils % (A) 0 %; Eosinophils # (A) 0.1 k/uL (0-0.7); Eosinophils % (A) 1 %; HCT 32.8 % (34.0-46.0); HGB 10.3 gm/dL (11.4-16.0); Lymphocytes # (A) 1.2 k/uL (1.0-4.8); Lymphocytes % (A) 7 %; MCH 30.5 pg (25.0-35.0); MCHC 31.3 g/dL (31.0-37.0); MCV 97.6 fL (80.0-100.0); Mean Platelet Volume 9.2; Monocytes # (A) 1.3 k/uL (0-1.0); Monocytes % (A) 7 %; Neutrophils # (A) 14.8 k/uL (1.3-7.7); Neutrophils % (A) 84 %; Platelet Count 537 k/uL (150-450); RBC 3.36 m/uL (3.80-5.40); RDW 13.8 % (11.5-15.5); WBC 17.7 k/uL (3.8-10.6)
[2020-06-30 23:19] LABS: Potassium 4.4 mmol/L (3.5-5.1)
[2020-06-30 23:28] LABS: Partial Thromboplastin Time 26.1 sec (22.0-30.0); Prothrombin Time 10.2 sec (9.0-12.0)
[2020-06-30 23:29] LABS: D-Dimer 4.21 mg/L FEU (<0.60)
--- NOTE | 2020-06-30 23:45 | XR ---
EXAMINATION TYPE: XR chest 2V DATE OF EXAM: 06/30/2020 COMPARISON: 09/22/2015 HISTORY: Short of breath TECHNIQUE: FINDINGS: There is some right lower lobe consolidation in the anterior basal segment. There is increa sed density around both probably arlet. There is no heart failure. Heart size is normal. There is airs pace infiltrate in the superior segment left lower lobe behind the heart. IMPRESSION: Bilateral airspace consolidation in the right lower lobe and left lower lobe. No heart fa ilure seen. Follow-up recommended.
--- NOTE | 2020-07-01 00:31 | CT ---
EXAMINATION TYPE: CT chest angio for PE DATE OF EXAM: 07/01/2020 COMPARISON: None HISTORY: elevatred d-dimer CT DLP: 272 mGycm Automated exposure control for dose reduction was used. CONTRAST: Performed with IV Contrast, patient injected with 55 mL of Isovue 370. There are 3-D post processed images. There are multiple masslike areas of infiltrate in both lower lobes. There is some masslike consolida tion at the right pulmonary hilum extending into the anterior basal segment right lower lobe. This me asures 6 x 5 cm. There is hiatal hernia. Multiple discrete rounded masses in the superior segment rig ht lower lobe superior segment left lower lobe and posterior basal segment right lower lobe measure u p to 2.5 cm. There is 2 cm lesion in the posterior segment right upper lobe. There is some spiculatio n. There is mild pulmonary emphysema. I see no filling defects in the pulmonary arteries. There is no pericardial effusion. Heart size is normal. Bony thorax is intact. There is no pleural ef fusion. Thoracic aorta is intact. There is no aneurysm or dissection. IMPRESSION: Multiple pulmonary mass like infiltrates. Multicentric primary malignancy or metastatic disease shoul d be considered. Follow-up recommended. Bilateral bronchial adenopathy. No evidence of pulmonary embolism..
[2020-07-01] MEDS ORDERED: methylPREDNISolone SOD SUCCI 125 MG/2 ML VIAL IV STA (00:33)
[2020-07-01] MEDS ORDERED: MORPHINE SULFATE 4 MG/ML SYRINGE IVP STA (00:53)
[2020-07-01] MEDS: ENOXAPARIN 40 MG/0.4 ML SYRINGE SQ SCH (07:52)
[2020-07-01] MEDS ORDERED: BUTA/APAP/CAF/COD 50-325-40-30 CAP PO PRN (08:37)
[2020-07-01] MEDS ORDERED: ALBUTEROL NEBULIZED 2.5 MG/3 ML INHALATION PRN ×2 (08:37)
[2020-07-01] MEDS ORDERED: DIPHENOX-ATROP 2.5-0.025 MG 1 EACH TAB PO PRN (08:37)
[2020-07-01] MEDS: MORPHINE SULFATE 4 MG/ML SYRINGE IVP PRN ×2 (08:40→19:48)
[2020-07-01] MEDS: IPRATROPIUM-ALBUTEROL 3 ML NEB INHALATION SCH ×4 (09:10→23:14)
[2020-07-01] MEDS: METOPROLOL TARTRATE 25 MG TAB PO SCH ×2 (09:55→21:06)
[2020-07-01] MEDS: HYDROcodone/APAP 10-325MG 1 EACH TAB PO SCH ×4 (09:55→21:07)
[2020-07-01] MEDS: PREGABALIN 75 MG CAP PO SCH ×2 (09:55→21:06)
[2020-07-01] MEDS: BACLOFEN 10 MG TAB PO SCH ×3 (09:55→21:06)
[2020-07-01] MEDS: VERAPAMIL SR 240 MG TABLET.ER PO SCH (09:56)
[2020-07-01] MEDS ORDERED: BENZOCAINE/MENTHOL LOZENG 1 EACH LOZENGE MUCOUS MEM PRN (10:33)
[2020-07-01] MEDS: BENZONATATE 100 MG CAP PO SCH ×3 (11:05→21:14)
[2020-07-01] MEDS: IOPAMIDOL CONTRAST (ORAL USE) VIAL PO PRN ×2 (11:05→11:56)
--- NOTE | 2020-07-01 12:42 | P.CNPUL ---
History of Present Illness Consult date: 07/01/20 Requesting physician: Carol Saldana Reason for consult: dyspnea, lung mass Chief complaint: Shortness of breath History of present illness: 59-year-old white male patient of Dr. Farris, with past medical history of COPD not oxygen dependent at baseline, multiple sclerosis, hypertension, hy perlipidemia, migraines, ulcerative colitis, lumbar degenerative disc disease, fibromyalgia, anxiety, current every day smoker, patient carries 43 year history of smoking of up to a pack a day. Patient presented to the emergency department on 06/30/2020 with complaints of 2 week history of cough, progressive worsening shortness of breath. Patient had an outpatient: Test done on 06/20/2020 which came back negative. Patient states that she was having chest tightness, at times she is able to cough up green and brown colored sputum. She reports fevers of 101.9F earlier this week, she was afebrile on presentation. He reports pain on the right side of her ribs when she coughs. Chest x-ray is completely showing bilateral airspace consolidation in the right lower lobe and left lower lobe. Lab work showed blood cell count 17.7, hemoglobin of 10.3, d- dimer was elevated at 4.21, this was followed by CTA chest showing no evidence of pulmonary embolism, multiple pulmonary masslike infiltrates, multicentric primary malignancy or metastatic disease should be considered and follow-up was recommended. The mass at the right pulmonary hilum extending into the anterior basal segment of the right lower lobe measuring 6.5 cm. There were multiple discrete rounded masses in the superior segment right lower lobe superior segment left lower lobe and posterior basal segment right lower lobe measuring up to 2.5 cm with some spiculation. Patient was started on reading treatments, and supplemental oxygen, and we were asked to see the patient and consultation in regards to pulmonary masses on her CTA chest. Review of Systems All systems: negative Constitutional: Denies chills, Denies fever Eyes: denies blurred vision, denies pain Ears, nose, mouth and throat: Denies headache, Denies sore throat Cardiovascular: Denies chest pain, Denies shortness of breath Respiratory: Reports congestion, Reports cough, Reports cough with sputum, Reports dyspnea Gastrointestinal: Denies abdominal pain, Denies diarrhea, Denies nausea, Denies vomiting Genitourinary: Denies dysuria, Denies hematuria Musculoskeletal: Denies myalgias Integumentary: Denies pruritus, Denies rash Neurological: Denies numbness, Denies weakness Psychiatric: Denies anxiety, Denies depression Endocrine: Denies fatigue, Denies weight change Past Medical History Past Medical History: Hyperlipidemia, Hypertension, Musculoskeletal Disorder Additional Past Medical History / Comment(s): migraines, ulcerative colitis, lumbar degenerative disc, fibromyalgia, MS History of Any Multi-Drug Resistant Organisms: None Reported Past Surgical History: Tubal Ligation Additional Past Surgical History / Comment(s): fx femurs, facial surgery, deviated septum, AJITH and RFA to neck and back Past Anesthesia/Blood Transfusion Reactions: No Reported Reaction Past Psychological History: Anxiety, Depression Smoking Status: Current every day smoker Past Alcohol Use History: Rare Past Drug Use History: None Reported - Past Family History Sister(s) Family Medical History: Cancer Additional Family Medical History / Comment(s): breast Medications and Allergies Home Medications Medication Instructions Recorded Confirmed Type Baclofen [Lioresal] 20 mg PO TID 12/10/14 07/01/20 History Buta/APAP/Caf/Cod 67-994-93-30 1 tab PO TID PRN 12/10/14 07/01/20 History [Fioricet w/Cod 46-200-17-30MG] Diphenox-Atrop 2.5-0.025 mg 1 - 2 tab PO QID PRN 12/10/14 07/01/20 History [Lomotil] Pregabalin [Lyrica] 150 mg PO BID 12/10/14 07/01/20 History Verapamil HCl [Verapamil ER] 240 mg PO DAILY 12/10/14 07/01/20 History clonazePAM [Clonazepam] 1 mg PO BID PRN 12/10/14 07/01/20 History traMADol HCl [Ultram] 50 mg PO TID PRN 12/10/14 07/01/20 History HYDROcodone/APAP 10-325MG [[place] 1 tab PO QID 09/22/15 07/01/20 History 10-325] Albuterol Inhaler [Ventolin Hfa 2 puff INHALATION RT-Q4H PRN 07/01/20 07/01/20 History Inhaler] Albuterol Nebulized [Ventolin 2.5 mg INHALATION RT-TID PRN 07/01/20 07/01/20 History Nebulized] Amoxicillin/Potassium Clav 1 tab PO BID 07/01/20 07/01/20 History [Augmentin 875-125 Tablet] DULoxetine HCL [Cymbalta] 60 mg PO DAILY 07/01/20 07/01/20 History Ergocalciferol (Vitamin D2) 50,000 unit PO KELLEY 07/01/20 07/01/20 History [Drisdol] Metoprolol Tartrate 25 mg PO BID 07/01/20 07/01/20 History modafiniL [Provigil] 200 mg PO BID PRN 07/01/20 07/01/20 History valACYclovir HCL 1,000 mg PO DAILY PRN 07/01/20 07/01/20 History Allergies Allergy/AdvReac Type Severity Reaction Status Date / Time No Known Allergies Allergy Verified 07/01/20 08: Physical Exam Vitals: Vital Signs Temp Pulse Pulse Resp BP BP Pulse Ox 07/01/20 12:11 92 07/01/20 12:00 90 07/01/20 09:20 90 07/01/20 09:17 97.4 F L 84 16 121/83 100 07/01/20 09:11 90 07/01/20 01:55 98.4 F 93 22 169/94 99 07/01/20 00:27 75 16 149/89 98 06/30/20 23:39 93 16 145/88 99 06/30/20 22:04 24 06/30/20 22:00 98 F 80 16 127/83 Intake and Output 06/30/20 07/01/20 07/01/20 22:59 06:59 14:59 Intake Total 60 300 Balance 60 300 Intake: Oral 60 300 Other: Voiding Method Toilet Toilet Weight 54.431 kg 54.431 kg GENERAL EXAM: Alert, very pleasant, 59-year-old white female, on room air, with pulse ox was 100% on 2 L, ambulating in the room, in no acute distress, no evidence of dyspnea on exertion or at rest comfortable in no apparent distress. HEAD: Normocephalic/atraumatic. EYES: Normal reaction of pupils, equal size. Conjunctiva pink, sclera white. NOSE: Clear with pink turbinates. THROAT: No erythema or exudates. NECK: No masses, no JVD, no thyroid enlargement, no adenopathy. CHEST: No chest wall deformity. Symmetrical expansion. LUNGS: Diminished air entry with no crackles, wheeze, rhonchi or dullness. CVS: Regular rate and rhythm, normal S1 and S2, no gallops, no murmurs, no rubs ABDOMEN: Soft, nontender. No hepatosplenomegaly, normal bowel sounds, no guarding or rigidity. EXTREMITIES: No clubbing, no edema, no cyanosis, 2+ pulses and upper and lower extremities. MUSCULOSKELETAL: Muscle strength and tone normal. SPINE: No scoliosis or deformity SKIN: No rashes CENTRAL NERVOUS SYSTEM: Alert and oriented -3. No focal deficits, tone is normal in all 4 extremities. PSYCHIATRIC: Alert and oriented -3. Appropriate affect. Intact judgment and insight. Results - Laboratory Findings CBC and BMP: 06/30/20 22:30 06/30/20 22:30 PT/INR, D-dimer PT 10.2 sec (9.0-12.0) 06/30/20 22:30 INR 1.0 (<1.2) 06/30/20 22:30 D-Dimer 4.21 mg/L FEU (<0.60) H 06/30/20 22:30 Abnormal lab findings: Abnormal Labs 06/30/20 06/30/20 06/30/20 22:30 22:30 22:30 WBC 17.7 H RBC 3.36 L Hgb 10.3 L Hct 32.8 L Plt Count 537 H Neutrophils # 14.8 H Monocytes # 1.3 H D-Dimer 4.21 H Carbon Dioxide 19 L Creatinine 0.46 L Glucose 142 H Plasma Lactic Acid Kalen AST 40 H Alkaline Phosphatase 132 H Albumin 3.3 L 06/30/20 22:30 WBC RBC Hgb Hct Plt Count Neutrophils # Monocytes # D-Dimer Carbon Dioxide Creatinine Glucose Plasma Lactic Acid Kalen 2.7 H* AST Alkaline Phosphatase Albumin - Diagnostic Findings Chest x-ray: report reviewed, image reviewed CT scan - chest: report reviewed, image reviewed Additional studies: EKG reviewed Assessment and Plan Plan: Assessment: #1. Masslike consolidation at the right pulmonary hilum, extending into the right lower lobe measuring 6.5 cm, and multiple discrete masses in the superior right lower lobe, superior segment left lower lobe and posterior basal segment right lower lobe, rule out lung cancer and metastatic disease, possibility of pneumonia is also considered, pro-calcitonin has been sent #2. Leukocytosis, fever, shortness of breath, rule out underlying infectious etiology, related to possibility of pneumonia. Negative COVID 19 test #3. Mild lactic acidosis improved with IV hydration #4. Current smoker, carries 43 year history of smoking of up to a pack a day #5. Underlying COPD not oxygen dependent #6. Multiple sclerosis #7. Hypertension #8. Hyperlipidemia #9. Fibromyalgia #10. Ulcerative colitis #11. Lumbar degenerative disc disease #12. Anxiety Plan: We'll send appropriate procalcitonin level, if comes back elevated will consider antibiotics, and patient Possibly be discharged home on antibiotics and have outpatient follow-up CT chest to evaluate for change in the appearance of the bilateral airspace disease. There is a possibility patient may need bronchoscopy with bronchoalveolar lavage and possibly endobronchial biopsy. In the meanwhile continue nebulized bronchodilators, vital signs are currently stable, patient is on room air, denies any acute complaints, still has some mild cough and occasional sputum production, sinus sputum for culture. We'll continue to follow I performed a history & physical examination of the patient and discussed their management with my nurse practitioner, Sarah Rizzo. I reviewed the nurse practitioner's note and agree with the documented findings and plan of care. Lung sounds are positive for diminished breath sounds. The findings and the impression was discussed with the patient. I attest to the documentation by the nurse practitioner. Time with Patient: Greater than 30
[2020-07-01] MEDS: NICOTINE 14MG/24HR PATCH TRANSDERM SCH (13:16)
[2020-07-01] MEDS: guaiFENesin 600 MG TABLET.ER PO SCH ×2 (13:16→21:13)
--- NOTE | 2020-07-01 13:24 | CT ---
EXAMINATION TYPE: CT abdomen pelvis w con DATE OF EXAM: 07/01/2020 COMPARISON: CT angiogram chest HISTORY: No abdominal complaints @ time of scan. CT DLP: 732.2 mGycm Automated exposure control for dose reduction was used. CONTRAST: CT scan of the abdomen pelvis is performed with IV Contrast, patient injected with 80 mL of Isovue 30 0. FINDINGS- LUNG BASES-there is subsegmental consolidation with a rounded area of density noted in the right lowe r lobe and perihilar region measuring 4.5 x 5 cm which could represent necrotic neoplasm or pulmonary abscess. Peripheral consolidation may represent postobstructive atelectasis or developing infiltrate . Pulmonary nodules have been described by recent CT scan. Small right pleural effusion. Motion artifact limits the exam.. LIVER/GB- No gross abnormality is appreciated. PANCREAS- No gross abnormality is seen. SPLEEN- No gross abnormality is seen. ADRENALS- No gross abnormality is seen. KIDNEYS/BLADDER- no hydronephrosis nephrolithiasis or renal mass. BOWEL-large hiatal hernia. Bowel gas pattern nonspecific. Appendix not seen. Mild wall thickening of the distal terminal ileum.. LYMPH NODES- No greater than 1cm abdominal or pelvic lymph nodes areappreciated. OSSEOUS STRUCTURES-makes density lesions in the proximal femur are seen bilaterally degenerative disc disease with disc bulging L5-S1. Multilevel facet arthropathy. OTHER- nonspecific calcification in the bilateral pelvis. Aorta of normal caliber with atherosclerot ic changes. IMPRESSION- 1. Right lower lobe demonstrates a 5 x 4.5 cm mixed fluid air mass area of consolidation could repres ent necrotic neoplasm or pulmonary abscess. Previous CT chest documented multiple pulmonary nodules. 2. No intra-abdominal mass or adenopathy. 3. Sclerotic lesions involving the proximal femur bilaterally could be on the basis of prior surgery. Bone scan could be obtained for further characterization. 4. Mild wall thickening of the terminal ileum correlate for mild enteritis.
[2020-07-01] MEDS: BUDESONIDE 1 MG/2 ML NEBU INHALATION SCH (16:32)
--- NOTE | 2020-07-01 17:08 | MR ---
EXAMINATION TYPE: MR brain wo/w con DATE OF EXAM: 07/01/2020 COMPARISON: 04/08/2018 HISTORY: Lung cancer staging CONTRAST: Standard multiplanar, multisequence MRI departmental protocol utilizing 5.5 mL intravenous Gadavist g adolinium contrast. There is some cerebral cortical atrophy. There is no mass effect nor midline shift. There is no sign of intracranial hemorrhage. Diffusion images show no evidence of acute infarct. There is scattered foci of increased signal in the white matter of both cerebral hemispheres. Total n umber is less than 10. These measure up to 5 mm. Corpus callosum appears normal. The brainstem appear s normal. There is no evidence of posterior fossa mass. Cerebellum appears fairly normal. Contrast images show no pathologic enhancement. There is normal enhancement of the venous sinuses. Th ere is arterial flow in the anterior middle and posterior cerebral arteries. IMPRESSION: Scattered small white matter high signal foci appear not significantly different than old exam and co uld relate to chronic small vessel ischemia. No acute intracranial abnormality. No evidence of metast atic disease.
[2020-07-01] MEDS: methylPREDNISolone SOD SUCCI 40 MG/ML 1 ML VIAL IV SCH (17:10)
--- NOTE | 2020-07-01 20:53 | P.HPIM ---
History of Present Illness H&P Date: 07/01/20 Chief Complaint: Cough History of presenting complaint: This is a pleasant 59-year-old patient who follows with Dr. Farris. Chronic stable medical conditions include hypertension, hyperlipidemia, ulcerative colitis, lumbar DJD, fibromyalgia, MS. For the time she follows with Dr. Cox locally. Patient is a current smoker. 2 weeks patient then progressively more and more short of breath cough wheezing. Some significant amount of phlegm is present. Green-brown in color. Has had some fever and chills. Decreased appetite titer rundown. Admitted with COPD exacerbation. Started on bronchodilators and steroids. Review of systems: GEN.: Tired, fever or chills EYES: None HEENT: None NECK: None RESPIRATORY: As above CARDIOVASCULAR: None GASTROINTESTINAL: None GENITOURINARY: None MUSCULOSKELETAL: Joint pains LYMPHATICS: None HEMATOLOGICAL: None PSYCHIATRY: None NEUROLOGICAL: None Past medical history to include: Hyperlipidemia, hypertension, migraines, ulcerative colitis, lumbar DJD, fibromyalgia, MS, COPD, anxiety depression Social history: Lives alone. Smokes half a pack a day for about 40 years. No alcohol. Physical examination: VITAL SIGNS: 98, 80, 16, 127/83, 98% on 3 L GENERAL: BMI 20, sitting up at the edge of the bed, short of breath. EYES: Pupils equal. Conjunctiva normal. HEENT: External appearance of nose and ears normal, oral cavity grossly normal. NECK: JVD not raised; masses not palpable. HEART: First and second heart sounds are normal; no edema. LUNGS: Respiratory rate increased, unable to speak in full sentences, diminished breath sounds prolonged expiration wheezing; n. ABDOMEN: Soft, nontender, liver spleen not palpable, no masses palpable. PSYCH: Alert and oriented x3; mood and affect slightly anxiousl. NEUROLOGICAL: Cranial nerves grossly intact; no facial asymmetry, power and sensation grossly intact. LYMPHATICS: No lymph nodes palpable in the axilla and neck INVESTIGATIONS, reviewed in the clinical context: White count 70.7 hemoglobin 10.3 platelets 537 potassium 4.4 creatinine 0.46 lactic acid 2.7 Chest x-ray film personally reviewed by me-shows multiple masses also possible infiltrate., Possible air-fluid level in the right lower lobe/abscess CT chest angiogram with B-P ruled out. Multiple pulmonary masslike infiltrates. EKG tracing personally reviewed by me-normal sinus rhythm Computed tomography scan of the abdomen and pelvis-right lower lobe fluid air masslike consolidation. Assessment: -Possible lung abscess given that patient had fever and chills. Having thick green-brown sputum. -Metastatic lung disease based to be also considered ruled out. -Acute severe COPD exacerbation -Chronic nicotine dependence Center smoker -Normocytic anemia likely of chronic disease -Reactive thrombocytosis -Lactic acidosis possibly from sepsis Plan: Patient is currently on nebulized bronchodilators, IV Solu-Medrol,. We'll add IV cefepime. Pulmonary was consulted. So was oncology. Mucinex was added. We'll send a sputum for Gram stain and culture. Patient probably need a bro nchoscopy. At some point. Lovenox for DVT prophylaxis. Smoke cessation counseling: This was done with the patient. Nicotine patch is being given. More than 3 minutes was spent for this Past Medical History Past Medical History: Hyperlipidemia, Hypertension, Musculoskeletal Disorder Additional Past Medical History / Comment(s): migraines, ulcerative colitis, lumbar degenerative disc, fibromyalgia, MS History of Any Multi-Drug Resistant Organisms: None Reported Past Surgical History: Tubal Ligation Additional Past Surgical History / Comment(s): fx femurs, facial surgery, deviated septum, AJITH and RFA to neck and back Past Anesthesia/Blood Transfusion Reactions: No Reported Reaction Past Psychological History: Anxiety, Depression Smoking Status: Current every day smoker Past Alcohol Use History: Rare Past Drug Use History: None Reported - Past Family History Sister(s) Family Medical History: Cancer Additional Family Medical History / Comment(s): breast Medications and Allergies Home Medications Medication Instructions Recorded Confirmed Type Baclofen [Lioresal] 20 mg PO TID 12/10/14 07/01/20 History Buta/APAP/Caf/Cod 88-288-93-30 1 tab PO TID PRN 12/10/14 07/01/20 History [Fioricet w/Cod 82-464-61-30MG] Diphenox-Atrop 2.5-0.025 mg 1 - 2 tab PO QID PRN 12/10/14 07/01/20 History [Lomotil] Pregabalin [Lyrica] 150 mg PO BID 12/10/14 07/01/20 History Verapamil HCl [Verapamil ER] 240 mg PO DAILY 12/10/14 07/01/20 History clonazePAM [Clonazepam] 1 mg PO BID PRN 12/10/14 07/01/20 History traMADol HCl [Ultram] 50 mg PO TID PRN 12/10/14 07/01/20 History HYDROcodone/APAP 10-325MG [[place] 1 tab PO QID 09/22/15 07/01/20 History 10-325] Albuterol Inhaler [Ventolin Hfa 2 puff INHALATION RT-Q4H PRN 07/01/20 07/01/20 History Inhaler] Albuterol Nebulized [Ventolin 2.5 mg INHALATION RT-TID PRN 07/01/20 07/01/20 History Nebulized] Amoxicillin/Potassium Clav 1 tab PO BID 07/01/20 07/01/20 History [Augmentin 875-125 Tablet] DULoxetine HCL [Cymbalta] 60 mg PO DAILY 07/01/20 07/01/20 History Ergocalciferol (Vitamin D2) 50,000 unit PO KELLEY 07/01/20 07/01/20 History [Drisdol] Metoprolol Tartrate 25 mg PO BID 07/01/20 07/01/20 History modafiniL [Provigil] 200 mg PO BID PRN 07/01/20 07/01/20 History valACYclovir HCL 1,000 mg PO DAILY PRN 07/01/20 07/01/20 History Allergies Allergy/AdvReac Type Severity Reaction Status Date / Time No Known Allergies Allergy Verified 07/01/20 08:20 Physical Exam Vitals: Vital Signs Temp Pulse Pulse Resp BP BP Pulse Ox 07/01/20 09:20 90 07/01/20 09:17 97.4 F L 84 16 121/83 100 07/01/20 09:11 90 07/01/20 01:55 98.4 F 93 22 169/94 99 07/01/20 00:27 75 16 149/89 98 06/30/20 23:39 93 16 145/88 99 06/30/20 22:04 24 06/30/20 22:00 98 F 80 16 127/83 Intake and Output 06/30/20 07/01/20 07/01/20 22:59 06:59 14:59 Intake Total 60 300 Balance 60 300 Intake: Oral 60 300 Other: Voiding Method Toilet Toilet Weight 54.431 kg 54.431 kg Results CBC & Chem 7: 06/30/20 22:30 06/30/20 22:30 Labs: Abnormal Lab Results - Last 24 Hours (Table) 06/30/20 06/30/20 06/30/20 Range/Units 22:30 22:30 22:30 WBC 17.7 H (3.8-10.6) k/uL RBC 3.36 L (3.80-5.40) m/uL Hgb 10.3 L (11.4-16.0) gm/dL Hct 32.8 L (34.0-46.0) % Plt Count 537 H (150-450) k/uL Neutrophils # 14.8 H (1.3-7.7) k/uL Monocytes # 1.3 H (0-1.0) k/uL D-Dimer 4.21 H (<0.60) mg/L FEU Carbon Dioxide 19 L (22-30) mmol/L Creatinine 0.46 L (0.52-1.04) mg/dL Glucose 142 H (74-99) mg/dL Plasma Lactic Acid [place] (0.7-2.0) mmol/L AST 40 H (14-36) U/L Alkaline Phosphatase 132 H (38-126) U/L Albumin 3.3 L (3.5-5.0) g/dL 06/30/20 Range/Units 22:30 WBC (3.8-10.6) k/uL RBC (3.80-5.40) m/uL Hgb (11.4-16.0) gm/dL Hct (34.0-46.0) % Plt Count (150-450) k/uL Neutrophils # (1.3-7.7) k/uL Monocytes # (0-1.0) k/uL D-Dimer (<0.60) mg/L FEU Carbon Dioxide (22-30) mmol/L Creatinine (0.52-1.04) mg/dL Glucose (74-99) mg/dL Plasma Lactic Acid [place] 2.7 H* (0.7-2.0) mmol/L AST (14-36) U/L Alkaline Phosphatase (38-126) U/L Albumin (3.5-5.0) g/dL Thrombosis Risk Factor Assmnt - Choose All That Apply Each Factor Represents 1 point: Age 41-60 years Other Risk Factors: No Thrombosis Risk Factor Assessment Total Risk Factor Score: 1 Thrombosis Risk Factor Assessment Level: Low Risk
[2020-07-01] MEDS ORDERED: CEFEPIME 1 GM in SODIUM CHLORIDE 0.9% 50 ML IVPB ONE (21:00)
[2020-07-01] MEDS: clonazePAM 1 MG TAB PO PRN (21:18)
[2020-07-02] MEDS: BUDESONIDE 1 MG/2 ML NEBU INHALATION SCH ×2 (00:27→07:11)
[2020-07-02] MEDS: IPRATROPIUM-ALBUTEROL 3 ML NEB INHALATION SCH ×4 (00:27→09:51)
[2020-07-02] MEDS: methylPREDNISolone SOD SUCCI 40 MG/ML 1 ML VIAL IV SCH ×3 (00:30→16:08)
[2020-07-02] MEDS: MORPHINE SULFATE 4 MG/ML SYRINGE IVP PRN ×3 (03:32→18:29)
[2020-07-02] MEDS: BENZONATATE 100 MG CAP PO SCH ×3 (08:08→21:43)
[2020-07-02] MEDS: PREGABALIN 75 MG CAP PO SCH ×2 (08:08→21:43)
[2020-07-02] MEDS: HYDROcodone/APAP 10-325MG 1 EACH TAB PO SCH ×4 (08:08→21:50)
[2020-07-02] MEDS: BACLOFEN 10 MG TAB PO SCH ×3 (08:08→21:50)
[2020-07-02] MEDS: NICOTINE 14MG/24HR PATCH TRANSDERM SCH (08:08)
[2020-07-02] MEDS: METOPROLOL TARTRATE 25 MG TAB PO SCH ×2 (08:09→21:43)
[2020-07-02] MEDS: CEFEPIME 1 GM in SODIUM CHLORIDE 0.9% 50 ML IVPB SCH ×2 (08:09→21:44)
[2020-07-02] MEDS: ENOXAPARIN 40 MG/0.4 ML SYRINGE SQ SCH (08:09)
[2020-07-02] MEDS: VERAPAMIL SR 240 MG TABLET.ER PO SCH (08:18)
[2020-07-02] MEDS: guaiFENesin 600 MG TABLET.ER PO SCH ×2 (08:22→21:43)
[2020-07-02] MEDS: clonazePAM 1 MG TAB PO PRN ×2 (08:24→16:15)
[2020-07-02] MEDS ORDERED: ALBUTEROL HFA INHALER INHALATION PRN (09:47)
[2020-07-02] MEDS: ALBUTEROL HFA INHALER INHALATION SCH ×3 (11:28→19:24)
--- NOTE | 2020-07-02 12:49 | P.PN ---
Subjective Progress Note Date: 07/02/20 Principal diagnosis: Lung mass, dyspnea 59-year-old white male patient of Dr. Farris, with past medical history of COPD not oxygen dependent at baseline, multiple sclerosis, hypertension, hyperlipidemia, migraines, ulcerative colitis, lumbar degenerative disc disease, fibromyalgia, anxiety, current every day smoker, patient carries 43 year history of smoking of up to a pack a day. Patient presented to the emergency department on 06/30/2020 with complaints of 2 week history of cough, progressive worsening shortness of breath. Patient had an outpatient COVID 19 test done on 06/20/2020 which came back negative. Patient states that she was having chest tightness, at times she is able to cough up green and brown colored sputum. She reports fevers of 101.9F earlier this week, she was afebrile on presentation. He reports pain on the right side of her ribs when she coughs. Chest x-ray is completely showing bilateral airspace consolidation in the right lower lobe and left lower lobe. Lab work showed blood cell count 17.7, hemoglobin of 10.3, d- dimer was elevated at 4.21, this was followed by CTA chest showing no evidence of pulmonary embolism, multiple pulmonary masslike infiltrates, multicentric primary malignancy or metastatic disease should be considered and follow-up was recommended. The mass at the right pulmonary hilum extending into the anterior basal segment of the right lower lobe measuring 6.5 cm. There were multiple discrete rounded masses in the superior segment right lower lobe superior segment left lower lobe and posterior basal segment right lower lobe measuring up to 2.5 cm with some spiculation. Patient was started on reading treatments, and supplemental oxygen, and we were asked to see the patient and consultation in regards to pulmonary masses on her CTA chest. On 07/02/2020 patient seen in follow-up on medical surgical floor. She is calm and comfortable, she is on room air, she's been afebrile, room air pulse ox is 95%, she does cough and the continence dyspneic with exertion, but no acute distress, she's been ambulating about the room without any difficulty. Pro- calcitonin level came back elevated at 6.07 suggesting underlying bacterial infection, suspect lung abscess. CT of the abdomen and pelvis completed showing right lower lobe 5 x 4.5 cm mixed fluid air mass area of consolidation that could represent necrotic neoplasm but more likely represents a pulmonary abscess. There was no intra-abdominal mass or adenopathy, there was sclerotic lesions involving the proximal femurs bilaterally, will be followed up with a bone scan, and there was mild wall thickening of the terminal ileum that could represent mild enteritis. Brain MRI showed scattered white matter high signal foci not significantly different from her old exam from 2018 that could relate to chronic small vessel ischemia no acute intracranial abnormality and no evidence of metastatic disease. No new labs today. She has been afebrile, she' s been started on antibiotics in the form of cefepime last night Objective - Vital Signs Vital signs: Vital Signs Temp 97.9 F 07/02/20 07:00 Pulse 88 07/02/20 08:00 Resp 18 07/02/20 08:00 BP 136/71 07/02/20 07:00 Pulse Ox 95 07/02/20 00:55 Intake & Output 07/01/20 07/02/20 07/02/20 18:59 06:59 18:59 Intake Total 1979 Balance 1979 Intake: Oral 1979 Other: Voiding Method Toilet Toilet Toilet # Voids 3 1 - Exam GENERAL EXAM: Alert, very pleasant, 59-year-old white female, on room air, with room air pulse ox 95, in no acute distress, no evidence of dyspnea on exertion or at rest comfortable in no apparent distress. HEAD: Normocephalic/atraumatic. EYES: Normal reaction of pupils, equal size. Conjunctiva pink, sclera white. NOSE: Clear with pink turbinates. THROAT: No erythema or exudates. NECK: No masses, no JVD, no thyroid enlargement, no adenopathy. CHEST: No chest wall deformity. Symmetrical expansion. LUNGS: Diminished air entry with no crackles, wheeze, rhonchi or dullness. CVS: Regular rate and rhythm, normal S1 and S2, no gallops, no murmurs, no rubs ABDOMEN: Soft, nontender. No hepatosplenomegaly, normal bowel sounds, no guarding or rigidity. EXTREMITIES: No clubbing, no edema, no cyanosis, 2+ pulses and upper and lower extremities. MUSCULOSKELETAL: Muscle strength and tone normal. SPINE: No scoliosis or deformity SKIN: No rashes CENTRAL NERVOUS SYSTEM: Alert and oriented -3. No focal deficits, tone is normal in all 4 extremities. PSYCHIATRIC: Alert and oriented -3. Appropriate affect. Intact judgment and insight. - Labs CBC & Chem 7: 06/30/20 22:30 06/30/20 22:30 Labs: Abnormal Lab Results - Last 24 Hours (Table) 07/01/20 Range/Units 13:19 Procalcitonin 6.07 H (0.02-0.09) ng/mL Assessment and Plan Plan: Assessment: #1. Masslike consolidation at the right pulmonary hilum, likely representing pulmonary abscess based on increased pro-calcitonin, rule out underlying malignancy #2. Leukocytosis, fever, shortness of breath, rule out underlying infectious etiology, related to possibility of pneumonia. Negative COVID 19 test #3. Mild lactic acidosis improved with IV hydration #4. Current smoker, carries 43 year history of smoking of up to a pack a day #5. Underlying COPD not oxygen dependent #6. Multiple sclerosis #7. Hypertension #8. Hyperlipidemia #9. Fibromyalgia #10. Ulcerative colitis #11. Lumbar degenerative disc disease #12. Anxiety Plan: Continue IV antibiotics for another 24 hours, the right pulmonary mass like consolidation with air fluid level likely representing pulmonary abscess, if remains stable patient can make discharged home in the next 24 hours on oral antibiotics in the form of Augmentin twice daily for 3 weeks, and following that we will repeat outpatient chest x-ray and possibly CT chest, and may consider bronchoscopy with BAL and possible biopsies. I performed a history & physical examination of the patient and discussed their management with my nurse practitioner, Sarah Rizzo. I reviewed the nurse practitioner's note and agree with the documented findings and plan of care. Lung sounds are positive for diminished breath sounds. The findings and the impression was discussed with the patient. I attest to the documentation by the nurse practitioner. Time with Patient: Less than 30
--- NOTE | 2020-07-02 15:43 | NM ---
EXAMINATION TYPE: NM bone scan whole body DATE OF EXAM: 07/02/2020 COMPARISON: NONE HISTORY: bilateral pulm nodules Delayed whole-body scanning was performed following the injection of 22.8 mCi Tc 99m MDP. Images acq uired 3.5 hours post injection. FINDINGS: There is degenerative uptake about the shoulders, hips, knees and ankles as well as the right great t oe. Left maxilla periodontal disease noted. No intense uptake to suggest metastatic disease at this t cecilia. IMPRESSION: No intense uptake to suggest metastatic disease at this time.
--- NOTE | 2020-07-02 17:31 | XR ---
EXAMINATION TYPE: XR chest 2V DATE OF EXAM: 07/02/2020 COMPARISON: June 30, 2020 HISTORY: Difficulty breathing. Lung mass. TECHNIQUE: 2 views FINDINGS: There is 5.5 cm rounded masslike density in the right middle lobe with air-fluid level. The re is mild blunting of the right costophrenic angle. There is some patchy infiltrate in the left lowe r lobe superior segment behind the heart. There are multiple nodular densities in the right lung in t he mid and upper lung field that measure up to 2 cm. IMPRESSION: Right middle lobe mass with fluid level consistent with abscess or necrotic tumor. Infilt rate in the left lower lobe superior segment. Chest unchanged compared to old exam. No heart failure. Multiple nodular densities in the right lung.
--- NOTE | 2020-07-02 17:55 | P.PN ---
Subjective Progress Note Date: 07/02/20 Principal diagnosis: Lung masses, mediastinal adenopathy In follow-up today patient does have pain in the right lower chest area worse with deep breathing, she does feel better than on admission. Cough is only slightly productive, denies hemoptysis. No fevers, nausea, vomiting, she is tolerating oral intake, she is ambulatory. Objective - Vital Signs Vital signs: Vital Signs Temp 97.9 F 07/02/20 07:00 Pulse 88 07/02/20 07:27 Resp 18 07/02/20 07:00 BP 136/71 07/02/20 07:00 Pulse Ox 95 07/02/20 00:55 Intake & Output 07/01/20 07/02/20 07/02/20 18:59 06:59 18:59 Intake Total 1979 Balance 1979 Intake: Oral 1979 Other: Voiding Method Toilet Toilet # Voids 3 1 - Constitutional General appearance: Present: average body habitus, cooperative, no acute distress - EENT Eyes: Present: anicteric sclerae, EOMI ENT: Present: hearing grossly normal - Neck Neck: Present: normal ROM. Absent: lymphadenopathy - Respiratory Respiratory: right: rhonchi - Cardiovascular Heart sounds: normal: S1, S2 - Peripheral edema leg Peripheral Edema: bilateral: None - Gastrointestinal General gastrointestinal: Present: normal bowel sounds, soft - Neurologic Neurologic: Present: CNII-XII intact - Musculoskeletal Musculoskeletal: Present: strength equal bilaterally - Psychiatric Psychiatric: Present: A&O x's 3, appropriate affect, intact judgment & insight - Labs CBC & Chem 7: 06/30/20 22:30 06/30/20 22:30 Labs: Abnormal Lab Results - Last 24 Hours (Table) 07/01/20 Range/Units 13:19 Procalcitonin 6.07 H (0.02-0.09) ng/mL - Imaging and Cardiology CT scan - abdomen: report reviewed CT scan - pelvis: report reviewed MRI - head: report reviewed Assessment and Plan (1) Mass of lung Narrative/Plan: CT AP nd MRI brain reviewed, no evidence of mets. NM Bone scan recommended, this is ordered. D/W Pulmonary. Agree with plan to treat for infection, re-image then pursue biopsy based on findings Pt was agreeable with plan Current Visit: Yes Status: Acute Priority: High Code(s): R91.8 - OTHER NONSPECIFIC ABNORMAL FINDING OF LUNG FIELD SNOMED Code(s): 080561076
[2020-07-02] MEDS: SYMBICORT 160-4.5 MCG INHALER INHALATION SCH (19:24)
--- NOTE | 2020-07-02 22:54 | P.PN ---
Progress Note - Text Progress Note Date: 07/02/20 Chief Complaint: Cough History of presenting complaint: This is a pleasant 59-year-old patient who follows with Dr. Farris. Chronic stable medical conditions include hypertension, hyperlipidemia, ulcerative colitis, lumbar DJD, fibromyalgia, MS. For the time she follows with Dr. Cox locally. Patient is a current smoker. 2 weeks patient then progressively more and more short of breath cough wheezing. Some significant amount of phlegm is present. Green-brown in color. Has had some fever and chills. Decreased appetite titer rundown. Admitted with COPD exacerbation. Admitted with COPD exacerbation, possible lung abscess and metastatic masses in the lung.Started on bronchodilators and steroids. IV cefepime. Today-feeling bit better. Up to the bathroom. Bringing up a large amount of sputum. Less wheezing. Did tolerate diet. Review of systems: Was done for constitutional, cardiovascular, GI, pulmonary. relevant finding as above Active Medications Acetam/Butalbital/Caffeine/Codeine (Fioricet W/Codeine) 1 each PO TID PRN PRN Reason: Migraine Headache Hydrocodone Bitart/Acetaminophen ([place] 10) 1 each PO QID [facility] Last Admin: 07/02/20 21:50 Dose: 1 each Documented by: Albuterol Sulfate (Ventolin Hfa Inhaler) 2 puff INHALATION RT-QID [facility] Last Admin: 07/02/20 19:24 Dose: 2 puff Documented by: Albuterol Sulfate (Ventolin Hfa Inhaler) 2 puff INHALATION RT-QID PRN PRN Reason: Shortness Of Breath Or Wheezing Baclofen (Lioresal) 20 mg PO TID [facility] Last Admin: 07/02/20 21:50 Dose: 20 mg Documented by: Benzocaine/Menthol (Cepacol Lozenge) 1 each MUCOUS MEM Q4HR PRN PRN Reason: Cough Benzonatate (Tessalon Perles) 100 mg PO TID [facility] Last Admin: 07/02/20 21:43 Dose: 100 mg Documented by: Budesonide/Formoterol Fumarate (Symbicort 160-4.5 Mcg Inhaler) 2 puff INHALATION RT-BID [facility] Last Admin: 07/02/20 19:24 Dose: 2 puff Documented by: Clonazepam (Klonopin) 1 mg PO BID PRN PRN Reason: Anxiety Last Admin: 07/02/20 16:15 Dose: 1 mg Documented by: Diphenoxylate HCl/Atropine (Lomotil) 1 each PO QID PRN PRN Reason: Diarrhea Last Admin: 07/01/20 21:19 Dose: 1 each Documented by: Enoxaparin Sodium (Lovenox) 40 mg SQ DAILY [facility] Last Admin: 07/02/20 08:09 Dose: 40 mg Documented by: Ergocalciferol (Vitamin D2) 50,000 unit PO [facility] Guaifenesin (Mucinex) 1,200 mg PO Q12HR [facility] Last Admin: 07/02/20 21:43 Dose: 1,200 mg Documented by: Cefepime HCl 1 gm/ Sodium (Chloride) 50 mls @ 12.5 mls/hr IVPB Q12HR [facility] Last Admin: 07/02/20 21:44 Dose: 12.5 mls/hr Documented by: Methylprednisolone Sodium Succinate (Solu-Medrol) 40 mg IV Q8HR [facility] Last Admin: 07/02/20 16:08 Dose: 40 mg Documented by: Metoprolol Tartrate (Lopressor) 25 mg PO BID [facility] Last Admin: 07/02/20 21:43 Dose: 25 mg Documented by: Modafinil (Provigil) 200 mg PO BID PRN PRN Reason: ALERTNESS Morphine Sulfate (Morphine Sulfate (Inj)) 4 mg IVP Q6HR PRN PRN Reason: Pain Last Admin: 07/02/20 18:29 Dose: 4 mg Documented by: Nicotine (Habitrol 14mg/24hr Patch) 1 patch TRANSDERM DAILY [facility] Last Admin: 07/02/20 08:08 Dose: 1 patch Documented by: Pregabalin (Lyrica) 150 mg PO BID [facility] Last Admin: 07/02/20 21:43 Dose: 150 mg Documented by: Verapamil HCl (Isoptin Sr) 240 mg PO DAILY [facility] Last Admin: 07/02/20 08:18 Dose: 240 mg Documented by: Physical examination: VITAL SIGNS: 98.1, 72, 18, 114/71, 93% on room air GENERAL: Sitting up, the short of breath EYES: Pupils equal. Conjunctiva normal. HEENT: External appearance of nose and ears normal, oral cavity grossly normal. NECK: JVD not raised; masses not palpable. HEART: First and second heart sounds are normal; no edema. LUNGS: Respiratory rate increased, decreased at diminished breath sounds prolonged expiration , this wheezing ABDOMEN: Soft, nontender, liver spleen not palpable, no masses palpable. PSYCH: Alert and oriented x3; mood and affect slightly anxiousl. INVESTIGATIONS, reviewed in the clinical context: Pro-calcitonin 6.07 Previous testing White count 70.7 hemoglobin 10.3 platelets 537 potassium 4.4 creatinine 0.46 lactic acid 2.7 Chest x-ray film personally reviewed by me-shows multiple masses also possible infiltrate., Possible air-fluid level in the right lower lobe/abscess CT chest angiogram with B-P ruled out. Multiple pulmonary masslike infiltrates. EKG tracing personally reviewed by me-normal sinus rhythm Computed tomography scan of the abdomen and pelvis-right lower lobe fluid air masslike consolidation. COVID 19 PCR-not detected Assessment: -Possible lung abscess given that patient had fever and chills. Having thick green-brown sputum.-Slow to respond -Metastatic lung disease based to be also considered . -Acute severe COPD exacerbation-slow to respond -Chronic nicotine dependence Center smoker -Normocytic anemia likely of chronic disease -Reactive thrombocytosis -Lactic acidosis possibly from sepsis Plan: Continue with bronchodilators, steroids, cefepime, Mucinex. Discussed with the patient. Repeat labs in the morning. Repeat checks x-ray.
[2020-07-03] MEDS: MORPHINE SULFATE 4 MG/ML SYRINGE IVP PRN ×2 (01:04→07:22)
[2020-07-03] MEDS: methylPREDNISolone SOD SUCCI 40 MG/ML 1 ML VIAL IV SCH ×2 (01:04→07:22)
[2020-07-03 07:17] VITALS: BP 151/90; PULSE 74; RESP 18; TEMP 97.8
[2020-07-03] MEDS: SYMBICORT 160-4.5 MCG INHALER INHALATION SCH (08:00)
[2020-07-03] MEDS: ALBUTEROL HFA INHALER INHALATION SCH ×2 (08:00→11:43)
[2020-07-03] MEDS: HYDROcodone/APAP 10-325MG 1 EACH TAB PO SCH ×2 (08:22→13:01)
[2020-07-03] MEDS: BENZONATATE 100 MG CAP PO SCH (08:22)
[2020-07-03] MEDS: VERAPAMIL SR 240 MG TABLET.ER PO SCH (08:22)
[2020-07-03] MEDS: PREGABALIN 75 MG CAP PO SCH (08:23)
[2020-07-03] MEDS: guaiFENesin 600 MG TABLET.ER PO SCH (08:23)
[2020-07-03] MEDS: METOPROLOL TARTRATE 25 MG TAB PO SCH (08:23)
[2020-07-03] MEDS: CEFEPIME 1 GM in SODIUM CHLORIDE 0.9% 50 ML IVPB SCH (08:23)
[2020-07-03] MEDS: BACLOFEN 10 MG TAB PO SCH (08:23)
[2020-07-03] MEDS: ENOXAPARIN 40 MG/0.4 ML SYRINGE SQ SCH (08:23)
[2020-07-03] MEDS: NICOTINE 14MG/24HR PATCH TRANSDERM SCH (08:24)
[2020-07-03 12:03] LABS: African American GFR (CKD) >90 (>60 ml/min/1.73 sqM); Anion Gap 7 mmol/L; Blood Urea Nitrogen 17 mg/dL (7-17); Calcium 8.7 mg/dL (8.4-10.2); Carbon Dioxide 27 mmol/L (22-30); Chloride 105 mmol/L (98-107); Glucose 242 mg/dL (74-99); Non-African American GFR(CKD) >90 (>60 ml/min/1.73 sqM); Potassium 4.4 mmol/L (3.5-5.1); Sodium 139 mmol/L (137-145)
[2020-07-03 12:18] LABS: HCT 31.5 % (34.0-46.0); HGB 9.7 gm/dL (11.4-16.0); Hypochromasia Marked; MCH 31.6 pg (25.0-35.0); MCHC 30.7 g/dL (31.0-37.0); Macrocytosis Slight; Mean Platelet Volume 8.8; Platelet Count 555 k/uL (150-450); RBC 3.06 m/uL (3.80-5.40); RDW 14.2 % (11.5-15.5); WBC 26.1 k/uL (3.8-10.6)
[2020-07-03] MEDS ORDERED: traMADol 50 MG TAB PO STA (12:21)
[2020-07-03 12:26] LABS: MCV 102.8 fL (80.0-100.0)
--- NOTE | 2020-07-03 12:57 | P.PN ---
Subjective Progress Note Date: 07/03/20 Principal diagnosis: Lung masses, mediastinal adenopathy In follow-up today patient states she is feeling good and wants to go home. She still has congested cough, no hempotysis, no other c/o, no fever, tolerating oral intake, she is ambulatory. Objective - Vital Signs Vital signs: Vital Signs Temp 97.8 F 07/03/20 07:00 Pulse 74 07/03/20 08:00 Resp 18 07/03/20 08:00 BP 151/90 07/03/20 07:00 Pulse Ox 95 07/03/20 07:00 Intake & Output 07/02/20 07/03/20 07/03/20 18:59 06:59 18:59 Weight 54.431 kg Other: Voiding Method Toilet Toilet Toilet # Voids 2 2 2 - Constitutional General appearance: Present: average body habitus, cooperative, no acute distress - EENT Eyes: Present: anicteric sclerae ENT: Present: hearing grossly normal - Respiratory Details: congested cough, unlabored respirations at rest - Neurologic Neurologic: Present: CNII-XII intact - Musculoskeletal Musculoskeletal: Present: strength equal bilaterally - Labs CBC & Chem 7: 07/03/20 11:40 07/03/20 11:40 Labs: Abnormal Lab Results - Last 24 Hours (Table) 07/03/20 07/03/20 Range/Units 11:40 11:40 WBC 26.1 H (3.8-10.6) k/uL RBC 3.06 L (3.80-5.40) m/uL Hgb 9.7 L (11.4-16.0) gm/dL Hct 31.5 L (34.0-46.0) % MCV 102.8 H D (80.0-100.0) fL MCHC 30.7 L (31.0-37.0) g/dL Plt Count 555 H (150-450) k/uL Creatinine 0.51 L (0.52-1.04) mg/dL Glucose 242 H (74-99) mg/dL Microbiology - Last 24 Hours (Table) 07/02/20 05:12 Gram Stain - Preliminary Sputum - Imaging and Cardiology NM bone scan-report reviewed Assessment and Plan (1) Mass of lung Narrative/Plan: CT AP, MRI brain reviewed, no evidence of mets. NM Bone scan, no evidence of mets, reviewed with pt. Agree with Pulmonary plan to treat for infection, re-image then pursue biopsy based on findings. Pt is agreeable with plan I reinforced to pt the importance of her f/u with Pulmonary. Current Visit: Yes Status: Acute Priority: High Code(s): R91.8 - OTHER NONSPECIFIC ABNORMAL FINDING OF LUNG FIELD SNOMED Code(s): 697934830
--- NOTE | 2020-07-03 13:33 | P.PN ---
Subjective Progress Note Date: 07/03/20 Principal diagnosis: Lung mass, dyspnea 59-year-old white male patient of Dr. Farris, with past medical history of COPD not oxygen dependent at baseline, multiple sclerosis, hypertension, hyperlipidemia, migraines, ulcerative colitis, lumbar degenerative disc disease, fibromyalgia, anxiety, current every day smoker, patient carries 43 year history of smoking of up to a pack a day. Patient presented to the emergency department on 06/30/2020 with complaints of 2 week history of cough, progressive worsening shortness of breath. Patient had an outpatient COVID 19 test done on 06/20/2020 which came back negative. Patient states that she was having chest tightness, at times she is able to cough up green and brown colored sputum. She reports fevers of 101.9F earlier this week, she was afebrile on presentation. He reports pain on the right side of her ribs when she coughs. Chest x-ray is completely showing bilateral airspace consolidation in the right lower lobe and left lower lobe. Lab work showed blood cell count 17.7, hemoglobin of 10.3, d- dimer was elevated at 4.21, this was followed by CTA chest showing no evidence of pulmonary embolism, multiple pulmonary masslike infiltrates, multicentric primary malignancy or metastatic disease should be considered and follow-up was recommended. The mass at the right pulmonary hilum extending into the anterior basal segment of the right lower lobe measuring 6.5 cm. There were multiple discrete rounded masses in the superior segment right lower lobe superior segment left lower lobe and posterior basal segment right lower lobe measuring up to 2.5 cm with some spiculation. Patient was started on reading treatments, and supplemental oxygen, and we were asked to see the patient and consultation in regards to pulmonary masses on her CTA chest. On 07/02/2020 patient seen in follow-up on medical surgical floor. She is calm and comfortable, she is on room air, she's been afebrile, room air pulse ox is 95%, she does cough and the continence dyspneic with exertion, but no acute distress, she's been ambulating about the room without any difficulty. Pro- calcitonin level came back elevated at 6.07 suggesting underlying bacterial infection, suspect lung abscess. CT of the abdomen and pelvis completed showing right lower lobe 5 x 4.5 cm mixed fluid air mass area of consolidation that could represent necrotic neoplasm but more likely represents a pulmonary abscess. There was no intra-abdominal mass or adenopathy, there was sclerotic lesions involving the proximal femurs bilaterally, will be followed up with a bone scan, and there was mild wall thickening of the terminal ileum that could represent mild enteritis. Brain MRI showed scattered white matter high signal foci not significantly different from her old exam from 2018 that could relate to chronic small vessel ischemia no acute intracranial abnormality and no evidence of metastatic disease. No new labs today. She has been afebrile, she' s been started on antibiotics in the form of cefepime last night On 07/03/2020 patient seen in follow-up on medical surgical floor. She is awake and alert, in no acute distress, she is on room air, her pulse ox is 95%, hemodynamically stable, no acute events overnight, she is tolerating ambulation in the room, she has a cough and occasionally bringing up some green color to brownish colored sputum, no complete chest pain, no hemoptysis. She is currently on cefepime, sputum culture is pending, she's had no fever or chills, she's probably stable for discharge home today on the 3 week course of oral antibiotics with outpatient follow-up Objective - Vital Signs Vital signs: Vital Signs Temp 97.8 F 07/03/20 07:00 Pulse 74 07/03/20 08:00 Resp 18 07/03/20 08:00 BP 151/90 07/03/20 07:00 Pulse Ox 95 07/03/20 07:00 Intake & Output 07/02/20 07/03/20 07/03/20 18:59 06:59 18:59 Weight 54.431 kg Other: Voiding Method Toilet Toilet Toilet # Voids 2 2 2 - Exam GENERAL EXAM: Alert, very pleasant, 59-year-old white female, on room air, with room air pulse ox 95, in no acute distress, no evidence of dyspnea on exertion or at rest comfortable in no apparent distress. HEAD: Normocephalic/atraumatic. EYES: Normal reaction of pupils, equal size. Conjunctiva pink, sclera white. NOSE: Clear with pink turbinates. THROAT: No erythema or exudates. NECK: No masses, no JVD, no thyroid enlargement, no adenopathy. CHEST: No chest wall deformity. Symmetrical expansion. LUNGS: Diminished air entry with no crackles, wheeze, rhonchi or dullness. CVS: Regular rate and rhythm, normal S1 and S2, no gallops, no murmurs, no rubs ABDOMEN: Soft, nontender. No hepatosplenomegaly, normal bowel sounds, no guarding or rigidity. EXTREMITIES: No clubbing, no edema, no cyanosis, 2+ pulses and upper and lower extremities. MUSCULOSKELETAL: Muscle strength and tone normal. SPINE: No scoliosis or deformity SKIN: No rashes CENTRAL NERVOUS SYSTEM: Alert and oriented -3. No focal deficits, tone is normal in all 4 extremities. PSYCHIATRIC: Alert and oriented -3. Appropriate affect. Intact judgment and insight. - Labs CBC & Chem 7: 07/03/20 11:40 07/03/20 11:40 Labs: Abnormal Lab Results - Last 24 Hours (Table) 07/03/20 07/03/20 Range/Units 11:40 11:40 WBC 26.1 H (3.8-10.6) k/uL RBC 3.06 L (3.80-5.40) m/uL Hgb 9.7 L (11.4-16.0) gm/dL Hct 31.5 L (34.0-46.0) % MCV 102.8 H D (80.0-100.0) fL MCHC 30.7 L (31.0-37.0) g/dL Plt Count 555 H (150-450) k/uL Creatinine 0.51 L (0.52-1.04) mg/dL Glucose 242 H (74-99) mg/dL Microbiology - Last 24 Hours (Table) 07/02/20 05:12 Gram Stain - Preliminary Sputum Assessment and Plan Plan: Assessment: #1. Masslike consolidation at the right pulmonary hilum, likely representing pulmonary abscess based on increased pro-calcitonin, rule out underlying malignancy #2. Leukocytosis, fever, shortness of breath, rule out underlying infectious etiology, related to possibility of pneumonia. Negative COVID 19 test #3. Mild lactic acidosis improved with IV hydration #4. Current smoker, carries 43 year history of smoking of up to a pack a day #5. Underlying COPD not oxygen dependent #6. Multiple sclerosis #7. Hypertension #8. Hyperlipidemia #9. Fibromyalgia #10. Ulcerative colitis #11. Lumbar degenerative disc disease #12. Anxiety Plan: Patient has remained stable, no fever or chills, no compressive chest pain, breathing is comfortable, patient is on room air, can be discharged home today on a three-week course of oral Augmentin, will do a follow-up chest x-ray in the office, no need outpatient follow-up appointment Dr. Ponce. This was discussed with Dr. Perea, who is in agreement. I performed a history & physical examination of the patient and discussed their management with my nurse practitioner, Sarah Rizzo. I reviewed the nurse practitioner's note and agree with the documented findings and plan of care. Lung sounds are positive for diminished breath sounds. The findings and the impression was discussed with the patient. I attest to the documentation by the nurse practitioner. Time with Patient: Less than 30
--- NOTE | 2020-07-03 23:48 | P.DS ---
Providers Date of admission: 07/02/20 04:01 Expected date of discharge: 07/03/20 Attending physician: David Perea Consults: 07/01/20 08:25 Consult Physician Routine Consulting Provider: Mayco Mota Consult Reason/Comments: multiple lung masses Do you want consulting provider notified?: Yes 07/01/20 10:30 Consult Physician Routine Consulting Provider: Braeden Ponce Consult Reason/Comments: lung masses, adenopathy Do you want consulting provider notified?: Yes Primary care physician: [facility] Course: Chief Complaint: Cough History of presenting complaint: This is a pleasant 59-year-old patient who follows with Dr. Farris. Chronic stable medical conditions include hypertension, hyperlipidemia, ulcerative colitis, lumbar DJD, fibromyalgia, MS. For the time she follows with Dr. Cox locally. Patient is a current smoker. 2 weeks patient then progressively more and more short of breath cough wheezing. Some significant amount of phlegm is present. Green-brown in color. Has had some fever and chills. Decreased appetite titer rundown. Admitted with COPD exacerbation. Admitted with COPD exacerbation, possible lung abscess and metastatic masses in the lung.Started on bronchodilators and steroids. IV cefepime. Today-patient still bringing up globs of sputum. Feeling much better. Appetite improved. Less wheezing. Up and about. Discussed with Dr. Ponce from pulmonary. THE PATIENT HOME ON ORAL ANTIBIOTICS. HE'LL FOLLOW UP AN OUTPATIENT. CARE WAS DISCUSSED IN DETAIL WITH THE PATIENT. DID DISCUSS THE POSSIBILITY OF UNDERLYING MALIGNANCY. TO BE RULED OUT. AGAIN DISCUSSED ABOUT SMOKING CESSATION. Discussion and discharge planning more than 35 minutes Consultation: Dr. Ponce from pulmonary Physical examination: VITAL SIGNS: 97.8, 74, 18, 151/90, 95% room air GENERAL: Sitting up, the short of breath EYES: Pupils equal. Conjunctiva normal. HEENT: External appearance of nose and ears normal, oral cavity grossly normal. NECK: JVD not raised; masses not palpable. HEART: First and second heart sounds are normal; no edema. LUNGS: Respiratory rate increased, decreased at diminished breath sounds ABDOMEN: Soft, nontender, liver spleen not palpable, no masses palpable. PSYCH: Alert and oriented x3; mood and affect normal. INVESTIGATIONS, reviewed in the clinical context: White count 26.1 hemoglobin 9.7 potassium 4.4 creatinine 0.51 Pro-calcitonin 6.07 Sputum culture pending Previous testing White count 70.7 hemoglobin 10.3 platelets 537 potassium 4.4 creatinine 0.46 lactic acid 2.7 Chest x-ray film personally reviewed by me-shows multiple masses also possible infiltrate., Possible air-fluid level in the right lower lobe/abscess CT chest angiogram with B-P ruled out. Multiple pulmonary masslike infiltrates. EKG tracing personally reviewed by me-normal sinus rhythm Computed tomography scan of the abdomen and pelvis-right lower lobe fluid air masslike consolidation. COVID 19 PCR-not detected Assessment: -Possible right lung abscess given that patient had fever and chills. Having thick green-brown sputum.- -Metastatic lung disease based to be also considered . -Acute severe COPD in a current smoker -Chronic nicotine dependence, current smoker -Normocytic anemia likely of chronic disease -Reactive thrombocytosis -Lactic acidosis possibly from sepsis Disposition: Home Patient Condition at Discharge: Stable Plan - Discharge Summary New Discharge Prescriptions: New Ipratropium-Albuterol Nebulize [Duoneb 0.5 mg-3 mg/3 ml Soln] 0 ml INHALATION TID #90 neb Nicotine 14Mg/24Hr Patch [Habitrol] 1 patch TRANSDERM DAILY #14 patch guaiFENesin [Mucinex] 1,200 mg PO Q12HR #60 tablet.er predniSONE 10 mg PO DAILY #30 tab Budesonide-Formot 160-4.5 Mcg [Symbicort 160-4.5 Mcg Inhaler] 2 puff INHALATION RT-BID #1 puff Continue clonazePAM [Clonazepam] 1 mg PO BID PRN PRN Reason: Anxiety Diphenox-Atrop 2.5-0.025 mg [Lomotil] 1 - 2 tab PO QID PRN PRN Reason: Diarrhea Baclofen [Lioresal] 20 mg PO TID Pregabalin [Lyrica] 150 mg PO BID [place]/APAP/Caf/Cod 47-156-31-30 [Fioricet w/Cod 40-222-80-30MG] 1 tab PO TID PRN PRN Reason: Migraine Headache traMADol HCl [Ultram] 50 mg PO TID PRN PRN Reason: Pain Verapamil HCl [Verapamil ER] 240 mg PO DAILY HYDROcodone/APAP 10-325MG [[place] 10-325] 1 tab PO QID modafiniL [Provigil] 200 mg PO BID PRN PRN Reason: ALERTNESS Metoprolol Tartrate 25 mg PO BID Ergocalciferol (Vitamin D2) [Drisdol] 50,000 unit PO KELLEY Albuterol Inhaler [Ventolin Hfa Inhaler] 2 puff INHALATION RT-Q4H PRN PRN Reason: Shortness Of Breath Albuterol Nebulized [Ventolin Nebulized] 2.5 mg INHALATION RT-TID PRN PRN Reason: Shortness Of Breath DULoxetine HCL [Cymbalta] 60 mg PO DAILY Amoxicillin/Potassium Clav [Augmentin 875-125 Tablet] 1 tab PO BID #60 tab Discontinued valACYclovir HCL 1,000 mg PO DAILY PRN PRN Reason: 4 TABS/MONTH FOR COLD SORES Discharge Medication List Baclofen [Lioresal] 20 mg PO TID 12/10/14 [History] [place]/APAP/Caf/Cod [id number] [Fioricet w/Cod 24-943-69-30MG] 1 tab PO TID PRN 12/10/14 [History] Diphenox-Atrop 2.5-0.025 mg [Lomotil] 1 - 2 tab PO QID PRN 12/10/14 [History] Pregabalin [Lyrica] 150 mg PO BID 12/10/14 [History] Verapamil HCl [Verapamil ER] 240 mg PO DAILY 12/10/14 [History] clonazePAM [Clonazepam] 1 mg PO BID PRN 12/10/14 [History] traMADol HCl [Ultram] 50 mg PO TID PRN 12/10/14 [History] HYDROcodone/APAP 10-325MG [[place] 10-325] 1 tab PO QID 09/22/15 [History] Albuterol Inhaler [Ventolin Hfa Inhaler] 2 puff INHALATION RT-Q4H PRN 07/01/20 [History] Albuterol Nebulized [Ventolin Nebulized] 2.5 mg INHALATION RT-TID PRN 07/01/20 [History] DULoxetine HCL [Cymbalta] 60 mg PO DAILY 07/01/20 [History] Ergocalciferol (Vitamin D2) [Drisdol] 50,000 unit PO KELLEY 07/01/20 [History] Metoprolol Tartrate 25 mg PO BID 07/01/20 [History] modafiniL [Provigil] 200 mg PO BID PRN 07/01/20 [History] Amoxicillin/Potassium Clav [Augmentin 875-125 Tablet] 1 tab PO BID #60 tab 07/03/20 [Rx] Budesonide-Formot 160-4.5 Mcg [Symbicort 160-4.5 Mcg Inhaler] 2 puff INHALATION RT-BID #1 puff 07/03/20 [Rx] Ipratropium-Albuterol Nebulize [Duoneb 0.5 mg-3 mg/3 ml Soln] 0 ml INHALATION TID #90 neb 07/03/20 [Rx] Nicotine 14Mg/24Hr Patch [Habitrol] 1 patch TRANSDERM DAILY #14 patch 07/03/20 [Rx] guaiFENesin [Mucinex] 1,200 mg PO Q12HR #60 tablet.er 07/03/20 [Rx] predniSONE 10 mg PO DAILY #30 tab 07/03/20 [Rx] Follow up Appointment(s)/Referral(s): Ronny Farris MD [Primary Care Provider] - 07/11/20 1:00 pm Braeden Ponce MD [STAFF PHYSICIAN] - 07/18/20 3:15 pm (With Leta Underwood) Discharge Disposition: HOME WITH HOME HEALTH SERVICES
[2020-07-07] MEDS ORDERED: ERGOCALCIFEROL 50,000 UNIT CAP PO SCH (09:00)
[2020-07-07 19:22] LABS: Histoplasma Abs by ID None Detected (None Detected); Histoplasma Abs by Mycelia, CF <1:8 (<1:8)
--- NOTE | 2020-07-09 08:44 | P.CONS ---
History of Present Illness - Reason for Consult Consult date: 07/01/20 lung masses, adenopathy Requesting physician: David Perea - Chief Complaint Progressive shortness of breath - History of Present Illness Mrs. Daley is a very pleasant 59-year-old female we've been asked to see in regards to multiple bilateral lung masses as well as adenopathy in the chest. Patient came to the emergency department for persistent and progressive shortness of breath, 2 weeks, cough, recent outpatient covid testing last week was told to be negative. Her cough is non-productive, very congested sounding. Patient is positive for fevers, decreased appetite, rib pain from coughing and some weight loss. She denies chest pain, painful swallowing, purulent sputum, hemoptysis, abdominal pain or cramping, nausea, acute changes in bowel or bladder habits, swelling in the legs. she had a mammogram in August 2019. She has no personal history of malignancy. history of smoking, unable to smoke recently because of severe cough. She states that she has multiple sclerosis. Review of Systems 14 point review systems is negative except as stated in HPI Past Medical History Past Medical History: Hyperlipidemia, Hypertension, Musculoskeletal Disorder Additional Past Medical History / Comment(s): migraines, ulcerative colitis, lumbar degenerative disc, fibromyalgia, MS History of Any Multi-Drug Resistant Organisms: None Reported Past Surgical History: Tubal Ligation Additional Past Surgical History / Comment(s): fx femurs, facial surgery, deviated septum, AJITH and RFA to neck and back Past Anesthesia/Blood Transfusion Reactions: No Reported Reaction Past Psychological History: Anxiety, Depression Smoking Status: Current every day smoker Past Alcohol Use History: Rare Past Drug Use History: None Reported - Past Family History Sister(s) Family Medical History: Cancer Additional Family Medical History / Comment(s): breast Medications and Allergies Home Medications Medication Instructions Recorded Confirmed Type Baclofen [Lioresal] 20 mg PO TID 12/10/14 07/01/20 History Buta/APAP/Caf/Cod 53-616-17-30 1 tab PO TID PRN 12/10/14 07/01/20 History [Fioricet w/Cod 99-270-70-30MG] Diphenox-Atrop 2.5-0.025 mg 1 - 2 tab PO QID PRN 12/10/14 07/01/20 History [Lomotil] Pregabalin [Lyrica] 150 mg PO BID 12/10/14 07/01/20 History Verapamil HCl [Verapamil ER] 240 mg PO DAILY 12/10/14 07/01/20 History clonazePAM [Clonazepam] 1 mg PO BID PRN 12/10/14 07/01/20 History traMADol HCl [Ultram] 50 mg PO TID PRN 12/10/14 07/01/20 History HYDROcodone/APAP 10-325MG [[place] 1 tab PO QID 09/22/15 07/01/20 History 10-325] Albuterol Inhaler [Ventolin Hfa 2 puff INHALATION RT-Q4H PRN 07/01/20 07/01/20 History Inhaler] Albuterol Nebulized [Ventolin 2.5 mg INHALATION RT-TID PRN 07/01/20 07/01/20 History Nebulized] DULoxetine HCL [Cymbalta] 60 mg PO DAILY 07/01/20 07/01/20 History Ergocalciferol (Vitamin D2) 50,000 unit PO KELLEY 07/01/20 07/01/20 History [Drisdol] Metoprolol Tartrate 25 mg PO BID 07/01/20 07/01/20 History modafiniL [Provigil] 200 mg PO BID PRN 07/01/20 07/01/20 History Amoxicillin/Potassium Clav 1 tab PO BID #60 tab 07/03/20 Rx [Augmentin 875-125 Tablet] Budesonide-Formot 160-4.5 Mcg 2 puff INHALATION RT-BID #1 puff 07/03/20 Rx [Symbicort 160-4.5 Mcg Inhaler] Ipratropium-Albuterol Nebulize 0 ml INHALATION TID #90 neb 07/03/20 Rx [Duoneb 0.5 mg-3 mg/3 ml Soln] Nicotine 14Mg/24Hr Patch [Habitrol] 1 patch TRANSDERM DAILY #14 patch 07/03/20 Rx guaiFENesin [Mucinex] 1,200 mg PO Q12HR #60 tablet.er 07/03/20 Rx predniSONE 10 mg PO DAILY #30 tab 07/03/20 Rx Allergies Allergy/AdvReac Type Severity Reaction Status Date / Time No Known Allergies Allergy Verified 07/01/20 08:20 Physical Exam Vitals: Vital Signs Temp Pulse Pulse Resp BP BP Pulse Ox 07/01/20 09:20 90 07/01/20 09:17 97.4 F L 84 16 121/83 100 07/01/20 09:11 90 07/01/20 01:55 98.4 F 93 22 169/94 99 07/01/20 00:27 75 16 149/89 98 06/30/20 23:39 93 16 145/88 99 06/30/20 22:04 24 06/30/20 22:00 98 F 80 16 127/83 Intake and Output 06/30/20 07/01/20 07/01/20 22:59 06:59 14:59 Intake Total 60 300 Balance 60 300 Intake: Oral 60 300 Other: Voiding Method Toilet Toilet Weight 54.431 kg 54.431 kg - Constitutional General appearance: average body habitus, cooperative, no acute distress - EENT Eyes: anicteric sclerae, edentulous ENT: hearing grossly normal, normal oropharynx - Neck Neck: no lymphadenopathy - Respiratory Respiratory: bilateral: rhonchi (audible congested cough) - Cardiovascular Rhythm: regular Heart sounds: normal: S1, S2 Abnormal Heart Sounds: no systolic murmur, no diastolic murmur, no rub, no S3 Gallop, no S4 Gallop, no click, no other leg Peripheral Edema: bilateral: None - Gastrointestinal General gastrointestinal: no absent bowel sounds, no decreased bowel sounds, no distended, no hepatomegaly, no hyperactive bowel sounds, normal bowel sounds, no organomegaly, no rigid, no scaphoid, soft, no splenomegaly, no tenderness, no umbilical hernia, no ventral hernia - Neurologic Neurologic: CNII-XII intact - Musculoskeletal Musculoskeletal: strength equal bilaterally - Psychiatric Psychiatric: A&O x's 3, appropriate affect, intact judgment & insight Results CBC & Chem 7: 07/03/20 11:40 07/03/20 11:40 Labs: Abnormal Lab Results - Last 24 Hours (Table) 06/30/20 06/30/20 06/30/20 Range/Units 22:30 22:30 22:30 WBC 17.7 H (3.8-10.6) k/uL RBC 3.36 L (3.80-5.40) m/uL Hgb 10.3 L (11.4-16.0) gm/dL Hct 32.8 L (34.0-46.0) % Plt Count 537 H (150-450) k/uL Neutrophils # 14.8 H (1.3-7.7) k/uL Monocytes # 1.3 H (0-1.0) k/uL D-Dimer 4.21 H (<0.60) mg/L FEU Carbon Dioxide 19 L (22-30) mmol/L Creatinine 0.46 L (0.52-1.04) mg/dL Glucose 142 H (74-99) mg/dL Plasma Lactic Acid [place] (0.7-2.0) mmol/L AST 40 H (14-36) U/L Alkaline Phosphatase 132 H (38-126) U/L Albumin 3.3 L (3.5-5.0) g/dL 06/30/20 Range/Units 22:30 WBC (3.8-10.6) k/uL RBC (3.80-5.40) m/uL Hgb (11.4-16.0) gm/dL Hct (34.0-46.0) % Plt Count (150-450) k/uL Neutrophils # (1.3-7.7) k/uL Monocytes # (0-1.0) k/uL D-Dimer (<0.60) mg/L FEU Carbon Dioxide (22-30) mmol/L Creatinine (0.52-1.04) mg/dL Glucose (74-99) mg/dL Plasma Lactic Acid [place] 2.7 H* (0.7-2.0) mmol/L AST (14-36) U/L Alkaline Phosphatase (38-126) U/L Albumin (3.5-5.0) g/dL Chest x-ray: report reviewed CT scan - chest: report reviewed Assessment and Plan (1) Mass of lung Narrative/Plan: CT AP, MRI brain ordered for staging purposes. Pending recommendations re biopsy, treatment of infection Status: Acute Priority: High Code(s): R91.8 - OTHER NONSPECIFIC ABNORMAL FINDING OF LUNG FIELD SNOMED Code(s): 418409699
== END 2020-07-03 13:55 | disposition home or self-care (01) ==
LOC: EC 21:49 → 4SSUR 07-01 00:33 → INTOOBSV 07-02 04:01 → OBSVTOIN 07-02 04:01 → UNDODISIN 07-03 13:55
PROVIDERS: ADMIT Hospitalist; ATTEND Hospitalist
DX: J44.1 Chronic obstructive pulmonary disease with (acute) exacerbation (principal); R91.8 Other nonspecific abnormal finding of lung field; R59.0 Localized enlarged lymph nodes; D72.829 Elevated white blood cell count, unspecified; R05 Cough; R06.02 Shortness of breath; D64.9 Anemia, unspecified; R50.9 Fever, unspecified; D47.3 Essential (hemorrhagic) thrombocythemia; E87.2 Acidosis; R79.1 Abnormal coagulation profile; F17.210 Nicotine dependence, cigarettes, uncomplicated; K51.90 Ulcerative colitis, unspecified, without complications; I10 Essential (primary) hypertension; E78.5 Hyperlipidemia, unspecified; G43.909 Migraine, unspecified, not intractable, without status migrainosus; M79.7 Fibromyalgia; G35 Multiple sclerosis; M51.36 Other intervertebral disc degeneration, lumbar region; M47.816 Spondylosis without myelopathy or radiculopathy, lumbar region; Z98.51 Tubal ligation status; Z87.81 Personal history of (healed) traumatic fracture; Z98.890 Other specified postprocedural states; F41.9 Anxiety disorder, unspecified; F32.9 Major depressive disorder, single episode, unspecified; Z80.3 Family history of malignant neoplasm of breast; Z79.891 Long term (current) use of opiate analgesic; Z79.51 Long term (current) use of inhaled steroids; Z79.52 Long term (current) use of systemic steroids; Z79.899 Other long term (current) drug therapy
CPT/HCPCS: 96376 ×3; 96365; 96366 ×3; 96372 ×3; 96361 ×2; 96375; 99285; 36415; 94640 ×6; 93005; 85379; 86606; 86698; 83880; 80053; 80048; 83605 ×2; 84484; 85025; 85027; 85610; 85730; 87070; 87205; 84145; 71046 ×2; 71275; 74177; 70553; 78306; G0378 ×3; U0003; A9503; S4990 ×3; J2270 ×3; J2920 ×3; J2930; J0692 ×3; J1650 ×3; A9585; Q9967 ×2; 96374

== ENCOUNTER 2020-08-23 20:08 | Inpatient (IN) | payer OTHER ==
[2020-08-23] MEDS ORDERED: SODIUM CHLORIDE 0.9% 500 ML 500 ML IV ONE (20:35)
[2020-08-23] MEDS ORDERED: SODIUM CHLORIDE 0.9% 1,000 ML IV STA (20:35)
[2020-08-23] MEDS ORDERED: HYDROmorphone 1 MG/ML 1 ML SYRINGE IVP STA (20:36)
--- NOTE | 2020-08-23 21:10 | ED ---
General Adult HPI - General Chief complaint: Altered Mental Status Stated complaint: altered mental status Time Seen by Provider: 08/23/20 20:12 Source: patient, RN notes reviewed, old records reviewed Mode of arrival: EMS Limitations: no limitations - History of Present Illness Initial comments: 60-year-old female presenting with chief complaint of abdominal pain, diarrhea. History of ulcerative colitis. EMS had been called because the patient had been altered, seeming more confused than usual. She is on multiple medications including pain medication, anxiety medication and depression medication. She does have history of ulcerative colitis. Patient is alert and oriented 2. She denies vomiting. Denies fever. Complaining of generalized severe abdominal pain. - Related Data Home Medications Medication Instructions Recorded Confirmed Baclofen [Lioresal] 20 mg PO TID 12/10/14 08/23/20 [place]/APAP/Caf/Cod 90-428-71-30 1 tab PO TID PRN 12/10/14 08/23/20 [Fioricet w/Cod 02-726-26-30MG] Diphenox-Atrop 2.5-0.025 mg 1 - 2 tab PO QID PRN 12/10/14 08/23/20 [Lomotil] Pregabalin [Lyrica] 150 mg PO BID 12/10/14 08/23/20 Verapamil HCl [Verapamil ER] 240 mg PO DAILY 12/10/14 08/23/20 clonazePAM [Clonazepam] 1 mg PO BID PRN 12/10/14 08/23/20 traMADol HCl [Ultram] 50 mg PO TID PRN 12/10/14 08/23/20 HYDROcodone/APAP 10-325MG [[place] 1 tab PO QID 09/22/15 08/23/20 10-325] Albuterol Inhaler [Ventolin Hfa 2 puff INHALATION RT-Q4H PRN 07/01/20 08/23/20 Inhaler] Albuterol Nebulized [Ventolin 2.5 mg INHALATION RT-TID PRN 07/01/20 08/23/20 Nebulized] DULoxetine HCL [Cymbalta] 60 mg PO DAILY 07/01/20 08/23/20 Ergocalciferol (Vitamin D2) 50,000 unit PO KELLEY 07/01/20 08/23/20 [Drisdol] Metoprolol Tartrate 25 mg PO BID 07/01/20 08/23/20 modafiniL [Provigil] 200 mg PO BID PRN 07/01/20 08/23/20 Atorvastatin Calcium [Lipitor] 80 mg PO HS 08/23/20 08/23/20 Ipratropium-Albuterol Nebulize 3 ml INHALATION RT-TID PRN 08/23/20 08/23/20 [Duoneb 0.5 mg-3 mg/3 ml Soln] Nicotine 21Mg/24Hr Patch [Habitrol] 1 patch TRANSDERM DAILY 08/23/20 08/23/20 Previous Rx's Medication Instructions Recorded Budesonide-Formot 160-4.5 Mcg 2 puff INHALATION RT-BID #1 puff 07/03/20 [Symbicort 160-4.5 Mcg Inhaler] Allergies Allergy/AdvReac Type Severity Reaction Status Date / Time No Known Allergies Allergy Verified 08/23/20 21:05 Review of Systems ROS Statement: Those systems with pertinent positive or pertinent negative responses have been documented in the HPI. ROS Other: All systems not noted in ROS Statement are negative. Past Medical History Past Medical History: Hyperlipidemia, Hypertension, Musculoskeletal Disorder Additional Past Medical History / Comment(s): migraines, ulcerative colitis, lumbar degenerative disc, fibromyalgia, MS History of Any Multi-Drug Resistant Organisms: None Reported Past Surgical History: Tubal Ligation Additional Past Surgical History / Comment(s): fx femurs, facial surgery, deviated septum, AJITH and RFA to neck and back Past Anesthesia/Blood Transfusion Reactions: No Reported Reaction Past Psychological History: Anxiety, Depression Smoking Status: Current every day smoker Past Alcohol Use History: Rare Past Drug Use History: None Reported - Past Family History Sister(s) Family Medical History: Cancer Additional Family Medical History / Comment(s): breast General Exam Limitations: no limitations General appearance: alert Head exam: Present: atraumatic, normocephalic Eye exam: Present: normal appearance, PERRL, EOMI ENT exam: Present: mucous membranes dry Neck exam: Present: normal inspection. Absent: tenderness, meningismus Respiratory exam: Present: normal lung sounds bilaterally. Absent: respiratory distress, wheezes Cardiovascular Exam: Present: regular rate. Absent: normal rhythm GI/Abdominal exam: Present: distended, tenderness, guarding, rigid Extremities exam: Present: normal inspection, normal capillary refill. Absent: pedal edema Back exam: Present: normal inspection Neurological exam: Present: alert. Absent: oriented X3, motor sensory deficit Psychiatric exam: Present: normal affect, normal mood Skin exam: Present: warm, dry, intact. Absent: cyanosis, diaphoretic Course Vital Signs 08/23/20 08/23/20 20:13 22:16 Temperature 98.9 F Pulse Rate 86 86 Respiratory 18 16 Rate Blood Pressure 152/87 118/69 O2 Sat by Pulse 97 99 Oximetry - Reevaluation(s) Reevaluation #1: 08/23/20 22:55 Further history obtained from the patient's son. He states that she has had some passing out spells over the past several years. He is uncertain of that sort occurred today. She had been complaining of abdominal pain, EMS was called because of an episode of confusion. She is alert and able to answer questions although she continues to not know the year. I did reevaluate the patient, she continues to have a nonfocal neurologic exam, she is moving all extremities symmetrically, and O2 0, mild confusion. EKG Findings - EKG Comments: EKG Findings:: EKG: Normal sinus rhythm with short FL, no ST segment elevation, tremor artifact throughout, rate of 100, FL interval 94, QRS duration 80, QTC 459 Medical Decision Making - Medical Decision Making 60-year-old female with abdominal pain, diarrhea, history of ulcer colitis, and episode of confusion. Workup, includes brain CT which is negative for intracranial hemorrhage or mass effect. Chest x-ray is obtained which shows a worsening of a masslike consolidation or empyema in the right lower lung field. CT of the abdomen is performed for severe abdominal pain and distention. This shows the empyema or peripheral effusion, no acute findings in the abdomen itself. After pain medication and steroids she is feeling much better. She has a white blood cell count of 19, hemoglobin is 9.3 which is slightly lower than prior. Electrolytes are within normal limits. Case is discussed with Nohemi shabazz for Dr. Wiseman. She will be admitted with both GI and pulmonary on consult. I suspect her confusion is related more to her primary medical issues rather than a primary neurological issue. She will be placed on IV antibiotics, IV steroids, pain medication. - Lab Data Result diagrams: 08/23/20 20:46 08/23/20 20:46 Lab Results 08/23/20 08/23/20 08/23/20 Range/Units 20:36 20:46 20:46 WBC 19.0 H (3.8-10.6) k/uL RBC 3.19 L (3.80-5.40) m/uL Hgb 9.3 L (11.4-16.0) gm/dL Hct 29.4 L (34.0-46.0) % MCV 92.2 D (80.0-100.0) fL MCH 29.2 (25.0-35.0) pg MCHC 31.6 (31.0-37.0) g/dL RDW 16.1 H (11.5-15.5) % Plt Count 442 (150-450) k/uL Neutrophils % 81 % Lymphocytes % 13 % Monocytes % 5 % Eosinophils % 0 % Basophils % 0 % Neutrophils # 15.4 H (1.3-7.7) k/uL Lymphocytes # 2.4 (1.0-4.8) k/uL Monocytes # 1.0 (0-1.0) k/uL Eosinophils # 0.1 (0-0.7) k/uL Basophils # 0.0 (0-0.2) k/uL Hypochromasia Moderate Anisocytosis Slight PT 10.4 (9.0-12.0) sec INR 1.0 (<1.2) APTT 26.9 (22.0-30.0) sec Sodium (137-145) mmol/L Potassium (3.5-5.1) mmol/L Chloride (98-107) mmol/L Carbon Dioxide (22-30) mmol/L Anion Gap mmol/L BUN (7-17) mg/dL Creatinine (0.52-1.04) mg/dL Est GFR (CKD-EPI)AfAm (>60 ml/min/1.73 sqM) Est GFR (CKD-EPI)NonAf (>60 ml/min/1.73 sqM) Glucose (74-99) mg/dL Plasma Lactic Acid [place] (0.7-2.0) mmol/L Calcium (8.4-10.2) mg/dL Magnesium (1.6-2.3) mg/dL Total Bilirubin (0.2-1.3) mg/dL AST (14-36) U/L ALT (4-34) U/L Alkaline Phosphatase (38-126) U/L Total Protein (6.3-8.2) g/dL Albumin (3.5-5.0) g/dL Urine Color Urine Appearance (Clear) Urine pH (5.0-8.0) Ur Specific [place] (1.001-1.035) Urine Protein (Negative) Urine Glucose (UA) (Negative) Urine Ketones (Negative) Urine Blood (Negative) Urine Nitrite (Negative) Urine Bilirubin (Negative) Urine Urobilinogen (<2.0) mg/dL Ur Leukocyte Esterase (Negative) Urine RBC (0-5) /hpf Urine WBC (0-5) /hpf Ur Squamous Epith Cells (0-4) /hpf Hyaline Casts (0-2) /lpf Urine Mucus (None) /hpf Urine Opiates Screen (NotDetected) Ur Oxycodone Screen (NotDetected) Urine Methadone Screen (NotDetected) Ur Propoxyphene Screen (NotDetected) Ur Barbiturates Screen (NotDetected) U Tricyclic Antidepress (NotDetected) Ur Phencyclidine Scrn (NotDetected) Ur Amphetamines Screen (NotDetected) U Methamphetamines Scrn (NotDetected) U Benzodiazepines Scrn (NotDetected) Urine Cocaine Screen (NotDetected) U Marijuana (THC) Screen (NotDetected) Serum Alcohol mg/dL Blood Type A Positive Blood Type Recheck A Pos Bld Type Recheck Status No Antibody Screen NEGATIVE Spec Expiration Date 08/26/2020233508/23/20 08/23/20 08/23/20 Range/Units 20:46 20:46 20:46 WBC (3.8-10.6) k/uL RBC (3.80-5.40) m/uL Hgb (11.4-16.0) gm/dL Hct (34.0-46.0) % MCV (80.0-100.0) fL MCH (25.0-35.0) pg MCHC (31.0-37.0) g/dL RDW (11.5-15.5) % Plt Count (150-450) k/uL Neutrophils % % Lymphocytes % % Monocytes % % Eosinophils % % Basophils % % Neutrophils # (1.3-7.7) k/uL Lymphocytes # (1.0-4.8) k/uL Monocytes # (0-1.0) k/uL Eosinophils # (0-0.7) k/uL Basophils # (0-0.2) k/uL Hypochromasia Anisocytosis PT (9.0-12.0) sec INR (<1.2) APTT (22.0-30.0) sec Sodium 145 (137-145) mmol/L Potassium 4.0 (3.5-5.1) mmol/L Chloride 110 H (98-107) mmol/L Carbon Dioxide 27 (22-30) mmol/L Anion Gap 8 mmol/L BUN 7 (7-17) mg/dL Creatinine 0.53 (0.52-1.04) mg/dL Est GFR (CKD-EPI)AfAm >90 (>60 ml/min/1.73 sqM) Est GFR (CKD-EPI)NonAf >90 (>60 ml/min/1.73 sqM) Glucose 96 (74-99) mg/dL Plasma Lactic Acid Kal[place] 0.9 (0.7-2.0) mmol/L Calcium 8.9 (8.4-10.2) mg/dL Magnesium 2.2 (1.6-2.3) mg/dL Total Bilirubin 0.5 (0.2-1.3) mg/dL AST 15 (14-36) U/L ALT 9 (4-34) U/L Alkaline Phosphatase 129 H (38-126) U/L Total Protein 6.2 L (6.3-8.2) g/dL Albumin 3.2 L (3.5-5.0) g/dL Urine Color Yellow Urine Appearance Cloudy H (Clear) Urine pH 6.5 (5.0-8.0) Ur Specific [place] 1.021 (1.001-1.035) Urine Protein 1+ H (Negative) Urine Glucose (UA) Negative (Negative) Urine Ketones Trace H (Negative) Urine Blood Negative (Negative) Urine Nitrite Negative (Negative) Urine Bilirubin Negative (Negative) Urine Urobilinogen 2.0 (<2.0) mg/dL Ur Leukocyte Esterase Large H (Negative) Urine RBC 2 (0-5) /hpf Urine WBC 20 H (0-5) /hpf Ur Squamous Epith Cells 1 (0-4) /hpf Hyaline Casts 24 H (0-2) /lpf Urine Mucus Many H (None) /hpf Urine Opiates Screen Not Detected (NotDetected) Ur Oxycodone Screen Not Detected (NotDetected) Urine Methadone Screen Not Detected (NotDetected) Ur Propoxyphene Screen Not Detected (NotDetected) Ur Barbiturates Screen Not Detected (NotDetected) U Tricyclic Antidepress Not Detected (NotDetected) Ur Phencyclidine Scrn Not Detected (NotDetected) Ur Amphetamines Screen Not Detected (NotDetected) U Methamphetamines Scrn Not Detected (NotDetected) U Benzodiazepines Scrn Not Detected (NotDetected) Urine Cocaine Screen Not Detected (NotDetected) U Marijuana (THC) Screen Not Detected (NotDetected) Serum Alcohol <10 mg/dL Blood Type Blood Type Recheck Bld Type Recheck Status Antibody Screen Spec Expiration Date Disposition Clinical Impression: Mass of lung, Leukocytosis, Delirium due to general medical condition Disposition: ADMITTED IP TO THIS [facility] Condition: Stable Is patient prescribed a controlled substance at d/c from ED?: No Referrals: Ronny Farris MD [Primary Care Provider] - 1-2 days Decision to Admit Reason: Admit from EC Decision Date: 08/23/20 Decision Time: 22:58
[2020-08-23 21:16] LABS: Appearance,Urine Cloudy (Clear); Bilirubin,Urine Negative (Negative); Blood,Urine Negative (Negative); Color,Urine Yellow; Glucose,Urine (UA) Negative (Negative); Hyaline Casts,Urine 24 /lpf (0-2); Ketones,Urine Trace (Negative); Leukocyte Esterase,Urine Large (Negative); Mucus,Urine Many /hpf; Nitrite,Urine Negative (Negative); PH, Urine 6.5 (5.0-8.0); Protein,Urine 1+ (Negative); RBC,Urine 2 /hpf (0-5); Specific Gravity,Urine 1.021 (1.001-1.035); Squamous Epithelial Cell,Urine 1 /hpf (0-4); WBC,Urine 20 /hpf (0-5)
[2020-08-23 21:18] LABS: ALT 9 U/L (4-34); AST 15 U/L (14-36); African American GFR (CKD) >90 (>60 ml/min/1.73 sqM); Albumin 3.2 g/dL (3.5-5.0); Alcohol <10 mg/dL; Alkaline Phosphatase 129 U/L (38-126); Anion Gap 8 mmol/L; Blood Urea Nitrogen 7 mg/dL (7-17); Calcium 8.9 mg/dL (8.4-10.2); Carbon Dioxide 27 mmol/L (22-30); Chloride 110 mmol/L (98-107); Glucose 96 mg/dL (74-99); Magnesium 2.2 mg/dL (1.6-2.3); Non-African American GFR(CKD) >90 (>60 ml/min/1.73 sqM); Sodium 145 mmol/L (137-145); Total Bilirubin 0.5 mg/dL (0.2-1.3); Total Protein 6.2 g/dL (6.3-8.2)
[2020-08-23 21:25] LABS: Partial Thromboplastin Time 26.9 sec (22.0-30.0); Prothrombin Time 10.4 sec (9.0-12.0)
[2020-08-23 21:29] LABS: Amphetamine Screen,Urine Not Detected (NotDetected); Barbiturate Screen,Urine Not Detected (NotDetected); Benzodiazepines Screen,Urine Not Detected (NotDetected); Cocaine Screen,Urine Not Detected (NotDetected); Methadone Screen, Urine Not Detected (NotDetected); Opiate Screen,Urine Not Detected (NotDetected); Oxycodone Screen, Urine Not Detected (NotDetected); Phencyclidine Screen,Urine Not Detected (NotDetected); Tricyclic Antidepressant,Urine Not Detected (NotDetected); Urn Cannabinoid Scrn Not Detected (NotDetected)
--- NOTE | 2020-08-23 21:33 | CT ---
EXAMINATION TYPE: CT brain wo con DATE OF EXAM: 08/23/2020 COMPARISON: 01/20/2012 MRI brain INDICATION: ams DLP: 1087.2 mGycm, Automated exposure control for dose reduction was used. CONTRAST: None CT of the brain is performed utilizing 3 mm thick sections through the posterior fossa and 3 mm thick sections through the remaining calvarium. Study is performed within 24 hours of arrival to the hosp [facility]. No abnormal hyperdensity is present to suggest an acute intracranial hemorrhage. No mass lesion is evident. No acute infarcts are evident. Ventricles and sulci are appropriate for the patient age. Mucosal thickening is through ethmoid air cells. Septal perforation is present anteriorly. Paranasal sinuses and mastoid air cells are otherwise clear. IMPRESSIONS: 1. No acute intracranial process. 2. Ethmoid air cell mucosal thickening. 3. Septal perforation anteriorly
--- NOTE | 2020-08-23 21:38 | CT ---
EXAMINATION TYPE: CT abdomen pelvis w con DATE OF EXAM: 08/23/2020 COMPARISON: 07/01/2020 INDICATION: ams, pt found unresponsive DLP: 636 mGycm, Automated exposure control for dose reduction was used. CONTRAST: 100 mL of Isovue 300. Study performed without Oral Contrast TECHNIQUE: Axial images were obtained from above the diaphragm to the pubic rami in the axial plane a t 5 mm thick sections. Reconstructed images are reviewed on the computer in the coronal plane. FINDINGS: Limited CT sections are obtained the lung bases. There is a small right pleural effusion. There is a loculated collection at the right lung base. Consolidation surrounds this area. Correlate for empyem a. This was present previously.. A small hiatal hernia. CT ABDOMEN: Liver: Normal Spleen: Normal Pancreas: Normal Adrenal glands: The adrenal glands are normal. Gallbladder: Normal Kidneys: No masses are evident. No hydronephrosis is present. No cysts are present. Delayed images were obtained through the kidneys, which remain unremarkable. Aorta: Vascular calcification is within the aorta. Inferior vena cava: Normal. CT PELVIS: Loops of bowel within the abdomen and pelvis are normal. Study is performed without oral contrast limiting bowel evaluation. Appendix: Normal as visualized. Urinary bladder: Normal. Genitourinary structures: Uterus is unremarkable. Adnexal regions are clear. Surgical clips are withi n the broad ligament regions. Osseous structures: No suspicious lytic or sclerotic lesions. IMPRESSIONS: 1. Probable empyema at the right lung base. Neoplasm is not excluded 2. Interval development of a small right pleural effusion.
[2020-08-23 21:47] LABS: Anisocytosis Slight; Basophils % (A) 0 %; Eosinophils # (A) 0.1 k/uL (0-0.7); Eosinophils % (A) 0 %; HCT 29.4 % (34.0-46.0); HGB 9.3 gm/dL (11.4-16.0); Hypochromasia Moderate; Lymphocytes # (A) 2.4 k/uL (1.0-4.8); Lymphocytes % (A) 13 %; MCH 29.2 pg (25.0-35.0); MCHC 31.6 g/dL (31.0-37.0); Mean Platelet Volume 8.9; Monocytes % (A) 5 %; Neutrophils # (A) 15.4 k/uL (1.3-7.7); Neutrophils % (A) 81 %; Platelet Count 442 k/uL (150-450); RBC 3.19 m/uL (3.80-5.40); RDW 16.1 % (11.5-15.5)
[2020-08-23 21:49] LABS: MCV 92.2 fL (80.0-100.0)
[2020-08-23] MEDS ORDERED: methylPREDNISolone SOD SUCCI 125 MG/2 ML VIAL IV STA (21:50)
[2020-08-23] MEDS ORDERED: cefTRIAXone IN SWFI 1,000 MG/10 ML SYRINGE IVP STA (21:55)
--- NOTE | 2020-08-23 22:10 | XR ---
EXAMINATION TYPE: XR chest 2V DATE OF EXAM: 08/23/2020 COMPARISON: 07/02/2020 HISTORY: Lung mass TECHNIQUE: 2 views FINDINGS: There is consolidation in pleural fluid at the right lung base. Left lung is clear. Heart s ize is normal. There is no heart failure. There are no hilar masses. IMPRESSION: There is some masslike consolidation in the right lower lobe with pleural fluid and thick ening that is worse than last exam. There is air-fluid level in the mass on the previous exam there i s not present on today's exam. Normal heart.
[2020-08-23] MEDS ORDERED: VANCOMYCIN IV PER PHARMACY 1 EACH MISC MISCELLANE PRN (22:37)
[2020-08-23] MEDS ORDERED: NALOXONE 0.4 MG/ML 1 ML VIAL IV PRN (22:38)
[2020-08-23] MEDS ORDERED: VANCOMYCIN 1,000 MG in SODIUM CHLORIDE 0.9% 250 ML IVPB STA (22:38)
[2020-08-23] MEDS ORDERED: ACETAMINOPHEN TAB 325 MG TAB PO PRN (22:49)
[2020-08-24] MEDS: HYDROmorphone 0.5 MG/0.5 ML SYRINGE IVP PRN ×4 (00:42→21:44)
[2020-08-24] MEDS: methylPREDNISolone SOD SUCCI 125 MG/2 ML VIAL IV SCH ×4 (00:46→23:21)
[2020-08-24] MEDS: PIPERACILLIN-TAZOBACTAM 3.375 GM in SODIUM CHLORIDE 0.9% 100 ML IVPB SCH ×3 (08:00→23:22)
[2020-08-24] MEDS ORDERED: ALBUTEROL NEBULIZED 2.5 MG/3 ML INHALATION PRN ×2 (08:57)
[2020-08-24] MEDS ORDERED: RX INFO: IV CONTRAST WAS GIVEN 1 EACH MISC MISCELLANE PRN (09:22)
--- NOTE | 2020-08-24 10:22 | P.GSCN ---
History of Present Illness Consult date: 08/24/20 Reason for Consult: Empyema Requesting physician: Manjit Cho History of present illness: This is a 60-year-old female who follows on an outpatient basis with Dr. Ronny Farris. She has a previous medical history of hypertension, hyperlipidemia, ulcerative colitis, fibromyalgia, MS, anxiety/depression, chronic tobacco dependence, and multiple syncopal episodes over the last several years. This lady was recently here in June with complaints of shortness of breath and admitted for COPD exacerbation. She was supposed to follow up with pulmonology upon discharge but did not do so. She presented to [facility] emergency room last night with complaints of abdominal pain and diarrhea as well as acute mental status changes. Brain CT was completed demonstrating no acute process. Chest x-ray demonstrated masslike consolidation in the right lower lobe with pleural fluid and thickening worse than previous exam. CT of the abdomen and pelvis was also completed demonstrated a small right-sided pleural effusion as well as a loculated collection at the right lung base which could represent empyema. EKG demonstrated normal sinus rhythm. She remains afebrile, vital signs are stable and she is oxygenating well in the mid to high 90s on room air. WBC 19, hemoglobin 9.3, creatinine 0.53, lactic acid 0.9, urine drug screen was negative as well as serum alcohol level. She was started on IV antibiotics and admitted with consultation placed to pulmonology and gastroenterology. This morning consultation was placed to cardiothoracic surgery for treatment recommendations for possible empyema. Review of Systems Review of systems was completed but with difficulty as the patient's memory is a bit fuzzy - Respiratory Reports as per HPI, Reports dyspnea - Gastrointestinal Reports as per HPI, Reports abdominal pain - Neurological Reports as per HPI, Reports change in mentation, Reports memory loss, Reports syncope Past Medical History Past Medical History: Hyperlipidemia, Hypertension, Musculoskeletal Disorder Additional Past Medical History / Comment(s): migraines, ulcerative colitis, lumbar degenerative disc, fibromyalgia, MS History of Any Multi-Drug Resistant Organisms: None Reported Past Surgical History: Tubal Ligation Additional Past Surgical History / Comment(s): fx femurs, facial surgery, deviated septum, AJITH and RFA to neck and back Past Anesthesia/Blood Transfusion Reactions: No Reported Reaction Past Psychological History: Anxiety, Depression Smoking Status: Former smoker Past Alcohol Use History: Rare Past Drug Use History: None Reported - Past Family History Sister(s) Family Medical History: Cancer Additional Family Medical History / Comment(s): breast Medications and Allergies Home Medications Medication Instructions Recorded Confirmed Type Baclofen [Lioresal] 20 mg PO TID 12/10/14 08/23/20 History Buta/APAP/Caf/Cod 35-270-86-30 1 tab PO TID PRN 12/10/14 08/23/20 History [Fioricet w/Cod 75-781-00-30MG] Diphenox-Atrop 2.5-0.025 mg 1 - 2 tab PO QID PRN 12/10/14 08/23/20 History [Lomotil] Pregabalin [Lyrica] 150 mg PO BID 12/10/14 08/23/20 History Verapamil HCl [Verapamil ER] 240 mg PO DAILY 12/10/14 08/23/20 History clonazePAM [Clonazepam] 1 mg PO BID PRN 12/10/14 08/23/20 History traMADol HCl [Ultram] 50 mg PO TID PRN 12/10/14 08/23/20 History HYDROcodone/APAP 10-325MG [[place] 1 tab PO QID 09/22/15 08/23/20 History 10-325] Albuterol Inhaler [Ventolin Hfa 2 puff INHALATION RT-Q4H PRN 07/01/20 08/23/20 History Inhaler] Albuterol Nebulized [Ventolin 2.5 mg INHALATION RT-TID PRN 07/01/20 08/23/20 History Nebulized] DULoxetine HCL [Cymbalta] 60 mg PO DAILY 07/01/20 08/23/20 History Ergocalciferol (Vitamin D2) 50,000 unit PO KELLEY 07/01/20 08/23/20 History [Drisdol] Metoprolol Tartrate 25 mg PO BID 07/01/20 08/23/20 History modafiniL [Provigil] 200 mg PO BID PRN 07/01/20 08/23/20 History Budesonide-Formot 160-4.5 Mcg 2 puff INHALATION RT-BID #1 puff 07/03/20 08/23/20 Rx [Symbicort 160-4.5 Mcg Inhaler] Atorvastatin Calcium [Lipitor] 80 mg PO HS 08/23/20 08/23/20 History Ipratropium-Albuterol Nebulize 3 ml INHALATION RT-TID PRN 08/23/20 08/23/20 History [Duoneb 0.5 mg-3 mg/3 ml Soln] Nicotine 21Mg/24Hr Patch [Habitrol] 1 patch TRANSDERM DAILY 08/23/20 08/23/20 History Allergies Allergy/AdvReac Type Severity Reaction Status Date / Time No Known Allergies Allergy Verified 08/23/20 21:05 Surgical - Exam Vital Signs Temp Pulse Resp BP Pulse Ox 98.9 F 86 18 152/87 97 08/23/20 20:13 08/23/20 20:13 08/23/20 20:13 08/23/20 20:13 08/23/20 20:13 - General well developed, well nourished, no distress, moderate pain, chronically ill - Eyes normal ocular movement - ENT no hearing loss - Neck no masses, no bruits, trachea midline - Respiratory Lungs sounds diminished bilaterally, right greater than left. Respirations even, nonlabored. Currently on room air with oxygen saturation 94%. No chest wall deformities. No clubbing or cyanosis present. - Cardiovascular S1, S2 present. Regular rate and rhythm, normal sinus rhythm on EKG. Palpable peripheral pulses bilaterally. No edema present. No calf pain or tenderness noted. - Abdomen Abdomen: soft, non tender, bowel sounds - Genitourinary Different - Rectum Deferred - Integumentary no rash, no growths - Neurologic normal sensation, disoriented, memory loss - Musculoskeletal normal posture - Psychiatric Does not Jessica but doesn't know the year, has a hard time recalling timing of recent events oriented to person, oriented to place, speech is normal Results - Labs 08/23/20 20:46 08/23/20 20:46 Abnormal Lab Results - Last 24 Hours (Table) 08/23/20 08/23/20 08/23/20 Range/Units 20:46 20:46 20:46 WBC 19.0 H (3.8-10.6) k/uL RBC 3.19 L (3.80-5.40) m/uL Hgb 9.3 L (11.4-16.0) gm/dL Hct 29.4 L (34.0-46.0) % RDW 16.1 H (11.5-15.5) % Neutrophils # 15.4 H (1.3-7.7) k/uL Chloride 110 H (98-107) mmol/L Alkaline Phosphatase 129 H (38-126) U/L Total Protein 6.2 L (6.3-8.2) g/dL Albumin 3.2 L (3.5-5.0) g/dL Urine Appearance Cloudy H (Clear) Urine Protein 1+ H (Negative) Urine Ketones Trace H (Negative) Ur Leukocyte Esterase Large H (Negative) Urine WBC 20 H (0-5) /hpf Hyaline Casts 24 H (0-2) /lpf Urine Mucus Many H (None) /hpf Microbiology - Last 24 Hours (Table) 08/23/20 20:46 Urine Culture - Preliminary Urine,Voided Diabetes panel 08/23/20 Range/Units 20:46 Sodium 145 (137-145) mmol/L Potassium 4.0 (3.5-5.1) mmol/L Chloride 110 H (98-107) mmol/L Carbon Dioxide 27 (22-30) mmol/L BUN 7 (7-17) mg/dL Creatinine 0.53 (0.52-1.04) mg/dL Glucose 96 (74-99) mg/dL Calcium 8.9 (8.4-10.2) mg/dL AST 15 (14-36) U/L ALT 9 (4-34) U/L Alkaline Phosphatase 129 H (38-126) U/L Total Protein 6.2 L (6.3-8.2) g/dL Albumin 3.2 L (3.5-5.0) g/dL Calcium panel 08/23/20 Range/Units 20:46 Calcium 8.9 (8.4-10.2) mg/dL Albumin 3.2 L (3.5-5.0) g/dL Pituitary panel 08/23/20 Range/Units 20:46 Sodium 145 (137-145) mmol/L Potassium 4.0 (3.5-5.1) mmol/L Chloride 110 H (98-107) mmol/L Carbon Dioxide 27 (22-30) mmol/L BUN 7 (7-17) mg/dL Creatinine 0.53 (0.52-1.04) mg/dL Glucose 96 (74-99) mg/dL Calcium 8.9 (8.4-10.2) mg/dL Adrenal panel 08/23/20 Range/Units 20:46 Sodium 145 (137-145) mmol/L Potassium 4.0 (3.5-5.1) mmol/L Chloride 110 H (98-107) mmol/L Carbon Dioxide 27 (22-30) mmol/L BUN 7 (7-17) mg/dL Creatinine 0.53 (0.52-1.04) mg/dL Glucose 96 (74-99) mg/dL Calcium 8.9 (8.4-10.2) mg/dL Total Bilirubin 0.5 (0.2-1.3) mg/dL AST 15 (14-36) U/L ALT 9 (4-34) U/L Alkaline Phosphatase 129 H (38-126) U/L Total Protein 6.2 L (6.3-8.2) g/dL Albumin 3.2 L (3.5-5.0) g/dL - Imaging Chest x-ray: report reviewed, image reviewed CT scan - abdomen: report reviewed, image reviewed EKG: image reviewed Assessment and Plan Assessment: 1. Shortness of breath, consolidation in the right lower lobe on chest x-ray and CT, concern for empyema, recent admission for COPD exacerbation 2. Abdominal pain with history of ulcerative colitis 3. Mental status change, no acute process on brain CT 4. Leukocytosis 5. History of hypertension 6. History of hyperlipidemia 7. Fibromyalgia 8. MS 9. Anxiety/depression 10. Chronic tobacco dependence with recent cessation, COPD 11. Multiple syncopal episodes over the previous several years Plan: The patient was seen and examined at the bedside. Chart/diagnostics were reviewed. The case was discussed with Dr. Meng who will examine the patient today. Continue current medical treatment with IV antibiotics, IV steroids. We will review chest CT ordered by Dr. Cho. Encourage continued smoking cessation. More recommendations to follow. Thank you Dr. Cho for this consult. We look forward to working with you in the care of your patient Time with Patient: Greater than 30
[2020-08-24] MEDS: HYDROcodone/APAP 10-325MG 1 EACH TAB PO PRN ×2 (11:55→19:12)
[2020-08-24] MEDS: NICOTINE 21MG/24HR PATCH TRANSDERM SCH (11:55)
[2020-08-24] MEDS: DULoxetine HCL 60 MG CAPSULE.DR PO SCH (11:55)
[2020-08-24] MEDS: METOPROLOL TARTRATE 25 MG TAB PO SCH ×2 (11:55→20:27)
[2020-08-24] MEDS: VERAPAMIL SR 240 MG TABLET.ER PO SCH (11:56)
[2020-08-24] MEDS: VANCOMYCIN 1,000 MG in SODIUM CHLORIDE 0.9% 250 ML IVPB SCH ×2 (11:56→23:22)
--- NOTE | 2020-08-24 12:13 | P.CNPUL ---
History of Present Illness Consult date: 08/24/20 Requesting physician: Michele Wiseman Reason for consult: abnormal CXR/CT Chief complaint: Syncope, weakness, altered mental status History of present illness: This is a 60-year-old female patient who follows with Dr. Farris as her primary care provider. She has a history of multiple sclerosis, hypertension, hyperlipidemia, mild migraines, lumbar degenerative disc disease, fibromyalgia, ulcerative colitis, anxiety, COPD and chronic tobacco dependence. She was also seen by our group in June 2020 for abnormal CAT scan which revealed multiple pulmonary masslike infiltrates, multicentric primary malignancy or metastatic disease was being considered. She had a mass at the right pulmonary hilum extending into the anterior basal segment of the right lower lobe measuring 6.5 cm. She was to follow up with Dr. Ponec in our office but did not have an appointment scheduled yet. She also had developed a cough and congestion yesterday. She states her son came to the house and found her to have altered mental status, more so than usual, and brought her to the emergency room. She has not much recollection in this regard. Chest x-ray again shows masslike consolidation of the right lower lobe with pleural fluid and thickening that is worse than previous exam 07/02/2020. CAT scan of the abdomen and pelvis revealed probable empyema in the right lung base. Neoplasm not excluded. Interval development of a right pleural effusion. She is seen today in consultation on the regular medical floor. She is awake and alert. She is up ambulating in her room. She is maintaining O2 saturations in the 90s on room air. She's afebrile. Hemodynamically stable. White count 19.0. Hemoglobin 9.3. Sodium 145. Potassium 4.0. Creatinine 0.53. Urine culture pending. Drug screen negative. She was given fluid resuscitation. Initiated on vancomycin and ceftriaxone. Review of Systems REVIEW OF SYSTEMS: CONSTITUTIONAL: Positive for weight loss. EYES: Denies change in vision. EARS, NOSE, MOUTH, THROAT: Denies headaches, denies sore throat. CARDIOVASCULAR: Denies chest pain, palpitations or syncopal episodes. RESPIRATORY: Positive for shortness of breath, cough, congestion no hemoptysis. GASTROINTESTINAL: Positive for abdominal pain and diarrhea GENITOURINARY: Denies hematuria, denies infections. MUSKULOSKELETAL: Denies pain, denies swelling. INTEGUMENTARY: Denies rash, denies eczema. NEUROLOGICAL: Denies recent memory loss, no recent seizure activity. PSYCHIATRIC: Positive for anxiety, denies depression. HEMATOLOGIC/LYMPHATIC: Denies anemia, denies enlarged lymph nodes. Past Medical History Past Medical History: Hyperlipidemia, Hypertension, Musculoskeletal Disorder Additional Past Medical History / Comment(s): migraines, ulcerative colitis, lumbar degenerative disc, fibromyalgia, MS History of Any Multi-Drug Resistant Organisms: None Reported Past Surgical History: Tubal Ligation Additional Past Surgical History / Comment(s): fx femurs, facial surgery, deviated septum, AJITH and RFA to neck and back Past Anesthesia/Blood Transfusion Reactions: No Reported Reaction Past Psychological History: Anxiety, Depression Smoking Status: Former smoker Past Alcohol Use History: Rare Past Drug Use History: None Reported - Past Family History Sister(s) Family Medical History: Cancer Additional Family Medical History / Comment(s): breast Medications and Allergies Home Medications Medication Instructions Recorded Confirmed Type Baclofen [Lioresal] 20 mg PO TID 12/10/14 08/23/20 History Buta/APAP/Caf/Cod 50-069-36-30 1 tab PO TID PRN 12/10/14 08/23/20 History [Fioricet w/Cod 40-498-47-30MG] Diphenox-Atrop 2.5-0.025 mg 1 - 2 tab PO QID PRN 12/10/14 08/23/20 History [Lomotil] Pregabalin [Lyrica] 150 mg PO BID 12/10/14 08/23/20 History Verapamil HCl [Verapamil ER] 240 mg PO DAILY 12/10/14 08/23/20 History clonazePAM [Clonazepam] 1 mg PO BID PRN 12/10/14 08/23/20 History traMADol HCl [Ultram] 50 mg PO TID PRN 12/10/14 08/23/20 History HYDROcodone/APAP 10-325MG [[place] 1 tab PO QID 09/22/15 08/23/20 History 10-325] Albuterol Inhaler [Ventolin Hfa 2 puff INHALATION RT-Q4H PRN 07/01/20 08/23/20 History Inhaler] Albuterol Nebulized [Ventolin 2.5 mg INHALATION RT-TID PRN 07/01/20 08/23/20 History Nebulized] DULoxetine HCL [Cymbalta] 60 mg PO DAILY 07/01/20 08/23/20 History Ergocalciferol (Vitamin D2) 50,000 unit PO KELLEY 07/01/20 08/23/20 History [Drisdol] Metoprolol Tartrate 25 mg PO BID 07/01/20 08/23/20 History modafiniL [Provigil] 200 mg PO BID PRN 07/01/20 08/23/20 History Budesonide-Formot 160-4.5 Mcg 2 puff INHALATION RT-BID #1 puff 07/03/20 08/23/20 Rx [Symbicort 160-4.5 Mcg Inhaler] Atorvastatin Calcium [Lipitor] 80 mg PO HS 08/23/20 08/23/20 History Ipratropium-Albuterol Nebulize 3 ml INHALATION RT-TID PRN 08/23/20 08/23/20 History [Duoneb 0.5 mg-3 mg/3 ml Soln] Nicotine 21Mg/24Hr Patch [Habitrol] 1 patch TRANSDERM DAILY 08/23/20 08/23/20 Hi story Allergies Allergy/AdvReac Type Severity Reaction Status Date / Time No Known Allergies Allergy Verified 08/23/20 21:05 Physical Exam Vitals: Vital Signs Temp Pulse Pulse Resp BP BP Pulse Ox 08/24/20 07:00 97.9 F 79 18 132/73 95 08/24/20 00:01 99.1 F 89 136/88 94 L 08/23/20 22:16 86 16 118/69 99 08/23/20 20:13 98.9 F 86 18 152/87 97 Intake and Output 08/23/20 08/24/20 08/24/20 22:59 06:59 14:59 Other: # Voids 1 Weight 52.163 kg 52.163 kg GENERAL EXAM: Alert, 60-year-old female patient appears older than stated age, ambulating in room, on room air, comfortable in no apparent distress. HEAD: Normocephalic. EYES: Normal reaction of pupils, equal size. NOSE: Clear with pink turbinates. THROAT: No erythema or exudates. NECK: No masses, no JVD. CHEST: No chest wall deformity. LUNGS: Equal air entry with bilateral scattered rhonchi. CVS: S1 and S2 normal with no audible murmur, regular rhythm. ABDOMEN: No hepatosplenomegaly, normal bowel sounds, no guarding or rigidity. SPINE: No scoliosis or deformity SKIN: No rashes CENTRAL NERVOUS SYSTEM: No focal deficits, tone is normal in all 4 extremities. EXTREMITIES: There is no peripheral edema. No clubbing, no cyanosis. Peripheral pulses are intact. Results - Laboratory Findings CBC and BMP: 08/23/20 20:46 08/23/20 20:46 PT/INR, D-dimer PT 10.4 sec (9.0-12.0) 08/23/20 20:46 INR 1.0 (<1.2) 08/23/20 20:46 Abnormal lab findings: Abnormal Labs 08/23/20 08/23/20 08/23/20 20:46 20:46 20:46 WBC 19.0 H RBC 3.19 L Hgb 9.3 L Hct 29.4 L RDW 16.1 H Neutrophils # 15.4 H Chloride 110 H Alkaline Phosphatase 129 H Total Protein 6.2 L Albumin 3.2 L Urine Appearance Cloudy H Urine Protein 1+ H Urine Ketones Trace H Ur Leukocyte Esterase Large H Urine WBC 20 H Hyaline Casts 24 H Urine Mucus Many H - Diagnostic Findings Chest x-ray: image reviewed Assessment and Plan Assessment: 1 Altered mental status of unclear etiology, computed tomography scan of the brain revealed no acute intracranial process 2 Masslike consolidation of the right lower lobe with pleural fluid and thickening, worse compared to previous on 07/02/2020. Possible empyema versus cancer 3 Known history of multiple pulmonary masslike infiltrates from 07/01/2020. Multicentric primary malignancy or metastatic disease is considered. Bilateral bronchial adenopathy. No follow-up in the outpatient setting. 4 Chronic tobacco dependence 5 Chronic obstructive pulmonary disease 6 Multiple sclerosis. 7 Ulcerative colitis with diarrhea 8 Hypertension 9 Hyperlipidemia 10 Anxiety 11 Fibromyalgia 12 History of migraines Plan: The patient was seen and evaluated by Dr. Cho Chest x-ray, labs abdominal CAT scan and previous CT chest reviewed Repeat computed tomography scan of the chest Continue vancomycin, add Zosyn Consult interventional radiology for possible FNA of the lung mass/empyema and possible pigtail catheter placement We'll continue to follow and make further recommendations based on her clinical status. I, the cosigning physician, performed a history & physical examination of the patient. Lungs sounds with bilateral scattered rhonchi. Maintaining good O2 saturations in the 90s on room air. I discussed the assessment and plan of care with my nurse practitioner, Leta Underwood. I attest to the above consultation as dictated by her. Time with Patient: Greater than 30
[2020-08-24] MEDS ORDERED: traMADol 50 MG TAB PO PRN (14:25)
[2020-08-24] MEDS ORDERED: IPRATROPIUM-ALBUTEROL 3 ML NEB INHALATION PRN (14:25)
--- NOTE | 2020-08-24 15:21 | HP ---
HISTORY AND PHYSICAL DATE OF SERVICE: 08/24/2020 CHIEF COMPLAINT: Change in mental status, abdominal pain, diarrhea and as well as cough. HISTORY OF PRESENT ILLNESS: This 60-year-old woman with a past medical history of multiple medical problems including hypertension, hyperlipidemia, history of DJD, history of migraine, history of ulcerative colitis, lumbar DJD, fibromyalgia, multiple sclerosis being followed by Dr. Ronny Farris and Dr. Schwartz in the outpatient setting was recently admitted with COPD exacerbation. The patient had some purulent sputum. Multiple lesions on the chest were also noted, possibility of metastasis versus was considered but the patient apparently did not have any outpatient followup. The patient did not attend any outpatient followup and the currently the patient has increased difficulty with abdominal pain, diarrhea, weakness, cough, and the patient came to [facility] and admitted to the hospital for further evaluation and treatment. Evaluation showed significant evidence of empyema on the right side; possibly with pleural effusion and Dr. Cho was consulted and the patient was also recommend cardiothoracic surgery evaluation also. There is no history of any fever, rigors or chills. No history of headache, loss of consciousness, seizures. Patient is also complaining of some diarrhea as mentioned earlier. Evaluation by Dr. Holland is in progress also. PAST MEDICAL HISTORY: History of hypertension, hyperlipidemia, history of multiple sclerosis, anxiety, depression, Crohn's disease, migraine. MEDICATIONS: Cymbalta, Ultram. Habitrol. Ventolin, Clonazepam, Verapamil, Lyrica, metoprolol, [place], Fioricet, Symbicort, Lioresal. Lipitor, DuoNeb, Drisdol, Lomotil. ALLERGIES: None. FAMILY HISTORY: History of breast cancer in the family. SOCIAL HISTORY: History of current smoking. No history of alcohol. No history of substance abuse. REVIEW OF SYSTEMS: ENT: No diminished vision. No diminished hearing. CARDIOVASCULAR: No angina or palpitations. RESPIRATORY: As mentioned earlier. GI: As mentioned earlier. no dysuria. Nervous system: No numbness or weakness. Allergy/Immunology: No asthma or hayfever. MUSCULOSKELETAL as mentioned earlier. HEMATOLOGY/ONCOLOGY: No history of anemia. ENDOCRINE as mentioned earlier. CONSTITUTIONAL: As mentioned earlier. DERMATOLOGY: Negative. RHEUMATOLOGY negative. PSYCHIATRY as mentioned earlier. PHYSICAL EXAMINATION: Alert and oriented times three. Pulse 79, blood pressure 130/73. Respirations 18, temperature 97.9, pulse ox 94% on room air. HEENT: Conjunctivae normal. Oral mucosa moist. NECK is no jugular venous distention. No carotid bruit. No lymph node enlargement. Cardiovascular systems: S1, S2 muffled. RESPIRATORY: Breath sounds diminished in the bases. Bilateral scattered rhonchi and crackles. ABDOMEN: Soft. Mild diffuse discomfort on palpation. Mild diffuse distention present. LEGS: No edema. No swelling. NERVOUS SYSTEM: Higher functions as mentioned earlier. Moves all 4 limbs. No focal motor or sensory deficits. Lymphatics: No lymph nodes palpable in the neck, axillae or groin. SKIN: No ulcer, no rash and no bleeding. JOINTS: No active deforming arthropathy. LABS: WBC 19, hemoglobin 9.3. Otherwise, alkaline phosphatase is 129. The urine drug screen is negative. UA noted, possibly UTI. Otherwise, the CT scan of the abdomen and pelvis which was personally reviewed by me showed evidence of possible empyema and small right pleural effusion. Neoplasm not completely excluded. ASSESSMENT: 1. Right pleural effusion with possible rule out empyema with sepsis, present on admission. 2. Rule out lung cancer with METS. 3. Possible acute urinary tract infection present on admission. 4. History of ulcerative colitis. 5. Hypertension. 6. History of degenerative joint disease. 7. History of migraine. 8. History of lumbar degenerative joint disease. 9. History of multiple sclerosis. 10.Anxiety, depression. 11.Remote history of nicotine dependence. 12.Increased WBC. 13.Anemia, normocytic anemia of chronic disease. 14.Elevated alkaline phosphatase. 15.Mild protein calorie malnutrition. 16.FULL CODE. RECOMMENDATIONS AND DISCUSSION: This 60-year-old woman who presented with multiple complex medical issues, we will monitor the patient closely, continue the current medications. Continue to monitor. I would recommend empiric antibiotics. IV Zosyn has been initiated. Obtain cultures. Resume the home medications. DVT prophylaxis. Multiple consultations as detailed above. Resume the home medications. The prognosis extremely guarded because of multiple complex medical issues. Further recommendations to follow. A copy of dictation being forwarded to Dr. Ronny Farris who is the primary physician. MMODL / IJN: [id number] / [facility]
[2020-08-24 15:30] LABS: African American GFR (CKD) >90 (>60 ml/min/1.73 sqM); Blood Urea Nitrogen 6 mg/dL (7-17); Non-African American GFR(CKD) >90 (>60 ml/min/1.73 sqM)
[2020-08-24 15:58] LABS: C Reactive Protein 237.6 mg/L (<10.0)
[2020-08-24] MEDS: BACLOFEN 10 MG TAB PO SCH ×2 (17:04→20:27)
--- NOTE | 2020-08-24 17:15 | CT ---
EXAMINATION TYPE: CT chest w con DATE OF EXAM: 08/24/2020 COMPARISON: HISTORY: Lung mass. CT DLP: 260.1 mGycm Automated exposure control for dose reduction was used. CONTRAST: Performed with IV Contrast, patient injected with 100ml mL of Isovue 300. Images were obtained from the thoracic inlet to the diaphragm with IV contrast. There is an 8 x 5 cm area of consolidation at the right lung base in the right middle lobe. There is fluid level. The mass has central fluid component that measures 4.5 cm in diameter. There is hiatal h ernia. Heart size is normal. There is no pericardial effusion. There are enlarged right bronchial lym ph nodes that measure up to 1 cm. There is no mediastinal adenopathy. There is mild pulmonary emphyse ma. There are patchy areas of linear and reticular infiltrate in the posterior lung longo bilaterall y. There is small right pleural effusion. There is some atelectasis right posterior lung base. Thoracic spine is intact. There is no compression fracture. Sternum is intact. IMPRESSION: Large cavitating mass in the right middle lobe not significantly different than yesterday and also pr esent on the old CT scan of 07/01/2020 and not changed in size. This appearance is nonspecific and coul d relate to lung abscess or necrotic tumor. There is significant improvement in the patchy pulmonary areas of consolidation in the posterior lung longo compared to CT scan of 07/01/2020 that suggests res olving pneumonia. There is clearing of the left bronchial adenopathy. There is a new small right pleural effusion compared to old exam of 07/01/2020. There is minimal atelec tasis right posterior lung base that appears increased compared to old exam.
[2020-08-24] MEDS: clonazePAM 1 MG TAB PO PRN (17:49)
[2020-08-24] MEDS: SYMBICORT 160-4.5 MCG INHALER INHALATION SCH (20:00)
[2020-08-24] MEDS: HEPARIN SODIUM,PORCINE 5,000 UNIT/ML 1 ML VIAL SQ SCH (20:24)
[2020-08-24] MEDS: PREGABALIN 50 MG CAP PO SCH (20:24)
[2020-08-24] MEDS: ATORVASTATIN 80 MG TAB PO SCH (20:27)
[2020-08-25] MEDS: SYMBICORT 160-4.5 MCG INHALER INHALATION SCH ×2 (07:51→20:03)
[2020-08-25] MEDS: PIPERACILLIN-TAZOBACTAM 3.375 GM in SODIUM CHLORIDE 0.9% 100 ML IVPB SCH ×3 (07:55→23:25)
[2020-08-25] MEDS: NICOTINE 21MG/24HR PATCH TRANSDERM SCH (07:56)
[2020-08-25] MEDS: HEPARIN SODIUM,PORCINE 5,000 UNIT/ML 1 ML VIAL SQ SCH ×2 (07:56→20:13)
[2020-08-25] MEDS: PANTOPRAZOLE 40 MG TABLET PO SCH (07:56)
[2020-08-25] MEDS: METOPROLOL TARTRATE 25 MG TAB PO SCH ×2 (07:56→20:13)
[2020-08-25] MEDS: methylPREDNISolone SOD SUCCI 125 MG/2 ML VIAL IV SCH ×3 (07:57→23:25)
[2020-08-25] MEDS: DULoxetine HCL 60 MG CAPSULE.DR PO SCH (07:57)
[2020-08-25] MEDS: PREGABALIN 50 MG CAP PO SCH ×2 (07:57→20:12)
[2020-08-25] MEDS: VERAPAMIL SR 240 MG TABLET.ER PO SCH (07:57)
[2020-08-25] MEDS: BACLOFEN 10 MG TAB PO SCH ×3 (07:57→21:34)
[2020-08-25 08:02] LABS: African American GFR (CKD) >90 (>60 ml/min/1.73 sqM); Non-African American GFR(CKD) >90 (>60 ml/min/1.73 sqM)
[2020-08-25] MEDS: HYDROcodone/APAP 10-325MG 1 EACH TAB PO PRN ×3 (08:03→21:34)
[2020-08-25] MEDS ORDERED: ERGOCALCIFEROL 50,000 UNIT CAP PO SCH (09:00)
[2020-08-25] MEDS: HYDROmorphone 0.5 MG/0.5 ML SYRINGE IVP PRN ×3 (09:19→19:43)
--- NOTE | 2020-08-25 09:31 | P.CONS ---
History of Present Illness - Reason for Consult Consult date: 08/24/20 Ulcerative colitis Requesting physician: Michele Wiseman - Chief Complaint Weakness, diarrhea and abdominal pain - History of Present Illness 60-year-old female with a medical history significant for hypertension, hyperlipidemia, fibromyalgia, MS, anxiety and depression, tobacco abuse as well as a reported history of ulcerative colitis diagnosed approximately 10 years ago who presented with complaints of abdominal pain, shortness of breath and diarrhea. The patient had previously been seen in the hospital in June with complaints of shortness of breath and admitted for COPD exacerbation. A right lung base collection which could represent a mass versus empyema was seen at that time and patient was to follow-up with the pulmonology service which she failed to do. In terms of her GI symptoms of the patient reports that initial diagnosis was 10 years ago. She has required steroid therapy in the past and reports that she is been on oral therapy with a 5ASA agent although she is unsure which medication she was prescribed. Last colonoscopy 6 years ago per her recollection. She believes her disease is predominantly left sided. She reports frequent loose bowel movements at baseline and reports using Lomotil as needed for her bowel movements. Bowel movements are generally nonbloody and occurring approximately 5 times per day with associated urgency and episodes of incontinence. She also reports some crampy lower abdominal pain. Currently she is being evaluated by the pulmonology service with plan for possible wire guided pigtail catheter versus bronchoscopy in the treatment plan. Patient has been started on steroid therapy. Currently tolerating a liquid diet. Review of Systems REVIEW OF SYSTEMS: CONSTITUTIONAL: Denies any fevers, chills, but she does report fatigue. CARDIOVASCULAR: Denies any chest pain, palpitations high or low blood pressures RESPIRATORY: Denies any shortness of breath, hemoptysis or cough. GENITOURINARY: No dysuria or hematuria. MUSCULOSKELETAL: No weakness reported. SKIN: Denies any new rashes or lesions, jaundice or pallor. PSYCHIATRIC: Denies any depression or anxiety, but does have a history of depression and anxiety. NEUROLOGY: Denies headache, denies any new focal deficits. EARS/NOSE/THROAT: No recent hearing change, congestion, nasal discharge or sore throat. EYES: No pain in eyes, discharge or change in vision. GASTROINTESTINAL: As per HPI. Past Medical History Past Medical History: Hyperlipidemia, Hypertension, Musculoskeletal Disorder Additional Past Medical History / Comment(s): migraines, ulcerative colitis, lumbar degenerative disc, fibromyalgia, MS History of Any Multi-Drug Resistant Organisms: None Reported Past Surgical History: Tubal Ligation Additional Past Surgical History / Comment(s): fx femurs, facial surgery, deviated septum, AJITH and RFA to neck and back Past Anesthesia/Blood Transfusion Reactions: No Reported Reaction Past Psychological History: Anxiety, Depression Smoking Status: Former smoker Past Alcohol Use History: Rare Past Drug Use History: None Reported - Past Family History Sister(s) Family Medical History: Cancer Additional Family Medical History / Comment(s): breast Medications and Allergies Home Medications Medication Instructions Recorded Confirmed Type Baclofen [Lioresal] 20 mg PO TID 12/10/14 08/23/20 History Buta/APAP/Caf/Cod 94-771-33-30 1 tab PO TID PRN 12/10/14 08/23/20 History [Fioricet w/Cod 04-499-57-30MG] Diphenox-Atrop 2.5-0.025 mg 1 - 2 tab PO QID PRN 12/10/14 08/23/20 History [Lomotil] Pregabalin [Lyrica] 150 mg PO BID 12/10/14 08/23/20 History Verapamil HCl [Verapamil ER] 240 mg PO DAILY 12/10/14 08/23/20 History clonazePAM [Clonazepam] 1 mg PO BID PRN 12/10/14 08/23/20 History traMADol HCl [Ultram] 50 mg PO TID PRN 12/10/14 08/23/20 History HYDROcodone/APAP 10-325MG [[place] 1 tab PO QID 09/22/15 08/23/20 History 10-325] Albuterol Inhaler [Ventolin Hfa 2 puff INHALATION RT-Q4H PRN 07/01/20 08/23/20 History Inhaler] Albuterol Nebulized [Ventolin 2.5 mg INHALATION RT-TID PRN 07/01/20 08/23/20 History Nebulized] DULoxetine HCL [Cymbalta] 60 mg PO DAILY 07/01/20 08/23/20 History Ergocalciferol (Vitamin D2) 50,000 unit PO KELLEY 07/01/20 08/23/20 History [Drisdol] Metoprolol Tartrate 25 mg PO BID 07/01/20 08/23/20 History modafiniL [Provigil] 200 mg PO BID PRN 07/01/20 08/23/20 History Budesonide-Formot 160-4.5 Mcg 2 puff INHALATION RT-BID #1 puff 07/03/20 08/23/20 Rx [Symbicort 160-4.5 Mcg Inhaler] Atorvastatin Calcium [Lipitor] 80 mg PO HS 08/23/20 08/23/20 History Ipratropium-Albuterol Nebulize 3 ml INHALATION RT-TID PRN 08/23/20 08/23/20 History [Duoneb 0.5 mg-3 mg/3 ml Soln] Nicotine 21Mg/24Hr Patch [Habitrol] 1 patch TRANSDERM DAILY 08/23/20 08/23/20 History Allergies Allergy/AdvReac Type Severity Reaction Status Date / Time No Known Allergies Allergy Verified 08/23/20 21:05 Physical Exam Vitals: Vital Signs Temp Pulse Pulse Resp BP BP Pulse Ox 08/24/20 07:00 97.9 F 79 18 132/73 95 08/24/20 00:01 99.1 F 89 136/88 94 L 08/23/20 22:16 86 16 118/69 99 08/23/20 20:13 98.9 F 86 18 152/87 97 Intake and Output 08/23/20 08/24/20 08/24/20 22:59 06:59 14:59 Other: # Voids 1 Weight 52.163 kg 52.163 kg On physical examination, patient appears comfortable in no apparent distress. HEAD: Normocephalic, atraumatic. EYES: No scleral icterus. No conjunctival injection. MOUTH: No lesions, tongue midline. NECK: Trachea midline, no gross abnormalities. CHEST: Decreased air entry in all lung longo. HEART: S1-S2 appreciated. ABDOMEN: Soft, thin and mildly tender. Bowel sounds are positive. No organomegaly. No guarding or rigidity. EXTREMITIES: No pedal edema. SKIN: No rashes, no jaundice. NEUROLOGIC: Alert and oriented x3. No focal deficits. Results CBC & Chem 7: 08/23/20 20:46 08/25/20 07:16 Labs: Abnormal Lab Results - Last 24 Hours (Table) 08/23/20 08/23/20 08/23/20 Range/Units 20:46 20:46 20:46 WBC 19.0 H (3.8-10.6) k/uL RBC 3.19 L (3.80-5.40) m/uL Hgb 9.3 L (11.4-16.0) gm/dL Hct 29.4 L (34.0-46.0) % RDW 16.1 H (11.5-15.5) % Neutrophils # 15.4 H (1.3-7.7) k/uL Chloride 110 H (98-107) mmol/L Alkaline Phosphatase 129 H (38-126) U/L Total Protein 6.2 L (6.3-8.2) g/dL Albumin 3.2 L (3.5-5.0) g/dL Urine Appearance Cloudy H (Clear) Urine Protein 1+ H (Negative) Urine Ketones Trace H (Negative) Ur Leukocyte Esterase Large H (Negative) Urine WBC 20 H (0-5) /hpf Hyaline Casts 24 H (0-2) /lpf Urine Mucus Many H (None) /hpf Microbiology - Last 24 Hours (Table) 08/23/20 20:46 Urine Culture - Preliminary Urine,Voided CT scan - abdomen: report reviewed (Right lung base empyema versus mass seen on computed tomography scan of the abdomen and pelvis) Assessment and Plan (1) Ulcerative colitis Narrative/Plan: 60-year-old female with multiple medical comorbidities currently being evaluated for right lung base empyema versus mass with plan for insertion of a double pigtail catheter with possibility of bronchoscopy as per the patient's report. The patient has long-standing history of ulcerative colitis proximally 10 years previously requiring steroid therapy and oral therapy with a 5-ASA agent. Currently the patient is only using Lomotil therapy at home. She reports baseline of 5 loose nonbloody bowel movements daily with associated lower abdominal cramping and pain. The patient has not followed up with the GI service for the past 3-4 years. Current Visit: Yes Status: Acute Code(s): K51.90 - ULCERATIVE COLITIS, UNSPECIFIED, WITHOUT COMPLICATIONS SNOMED Code(s): 29234146 (2) Anemia Current Visit: No Status: Acute Code(s): D64.9 - ANEMIA, UNSPECIFIED SNOMED Code(s): 458989621 (3) Diarrhea Current Visit: Yes Status: Acute Code(s): R19.7 - DIARRHEA, UNSPECIFIED SNOMED Code(s): 69800018 Plan: Supportive care Clear liquid diet Okay to advance diet from a GI standpoint Currently steroid therapy has been added for treatment of underlying pulmonary issues Bentyl [id number] will be added Testing for Clostridium difficile be ordered ESR and CRP ordered Patient will need follow-up with the GI service after discharge Thank you for allowing us to participate in the care of the patient we will continue to follow
[2020-08-25] MEDS: DICYCLOMINE 20 MG TAB PO SCH ×4 (12:08→21:34)
[2020-08-25] MEDS: clonazePAM 1 MG TAB PO PRN ×2 (12:11→22:32)
[2020-08-25] MEDS: VANCOMYCIN 1,000 MG in SODIUM CHLORIDE 0.9% 250 ML IVPB SCH ×2 (12:31→22:32)
--- NOTE | 2020-08-25 13:16 | P.PN ---
Subjective Progress Note Date: 08/25/20 Principal diagnosis: Altered mental status, recovered This is a 60-year-old female patient who follows with Dr. Farris as her primary care provider. She has a history of multiple sclerosis, hypertension, hyperlipidemia, mild migraines, lumbar degenerative disc disease, fibromyalgia, ulcerative colitis, anxiety, COPD and chronic tobacco dependence. She was also seen by our group in June 2020 for abnormal CAT scan which revealed multiple pulmonary masslike infiltrates, multicentric primary malignancy or metastatic disease was being considered. She had a mass at the right pulmonary hilum extending into the anterior basal segment of the right lower lobe measuring 6.5 cm. She was to follow up with Dr. Ponce in our office but did not have an appointment scheduled yet. She also had developed a cough and congestion yesterday. She states her son came to the house and found her to have altered mental status, more so than usual, and brought her to the emergency room. She has not much recollection in this regard. Chest x-ray again shows masslike consolidation of the right lower lobe with pleural fluid and thickening that is worse than previous exam 07/02/2020. CAT scan of the abdomen and pelvis revealed probable empyema in the right lung base. Neoplasm not excluded. Interval development of a right pleural effusion. She is seen today in consultation on the regular medical floor. She is awake and alert. She is up ambulating in her room. She is maintaining O2 saturations in the 90s on room air. She's afebrile. Hemodynamically stable. White count 19.0. Hemoglobin 9.3. Sodium 145. Potassium 4.0. Creatinine 0.53. Urine culture pending. Neo g screen negative. She was given fluid resuscitation. Initiated on vancomycin and ceftriaxone. The patient is seen today 06/24/2020 in follow-up on the regular medical floor. She is awake and alert in no acute distress. She denies any worsening shortness of breath, cough or congestion. Maintaining O2 saturations in the 90s on room air. She's afebrile. Blood and urine cultures reveal no growth. Creatinine 0.51. Pro-calcitonin 0.09. Follow-up CAT scan reveals large cavitating mass in the right middle lobe not significantly different than previous CT of 07/01/2020. This appearance is nonspecific and could be related to a lung abscess or necrotic tumor. Significant improvement in the patchy pulmonary areas of consolidation in the posterior lung longo compared to computed tomography scan of 07/01/2020 that suggested resolving pneumonia. There is clearing of the left bronchial adenopathy. Objective - Vital Signs Vital signs: Vital Signs Temp 98.3 F 08/25/20 07:52 Pulse 83 08/25/20 07:52 Resp 16 08/25/20 07:52 BP 125/78 08/25/20 07:52 Pulse Ox 93 L 08/25/20 07:52 Intake & Output 08/24/20 08/25/20 08/25/20 18:59 06:59 18:59 Other: # Voids 2 1 - Exam GENERAL EXAM: Alert, 60-year-old female patient appears older than stated age, ambulating in room, on room air, comfortable in no apparent distress. HEAD: Normocephalic. EYES: Normal reaction of pupils, equal size. NOSE: Clear with pink turbinates. THROAT: No erythema or exudates. NECK: No masses, no JVD. CHEST: No chest wall deformity. LUNGS: Equal air entry with bilateral scattered rhonchi. CVS: S1 and S2 normal with no audible murmur, regular rhythm. ABDOMEN: No hepatosplenomegaly, normal bowel sounds, no guarding or rigidity. SPINE: No scoliosis or deformity SKIN: No rashes CENTRAL NERVOUS SYSTEM: No focal deficits, tone is normal in all 4 extremities. EXTREMITIES: There is no peripheral edema. No clubbing, no cyanosis. Peripheral pulses are intact. - Labs CBC & Chem 7: 08/23/20 20:46 08/25/20 07:16 Labs: Abnormal Lab Results - Last 24 Hours (Table) 08/24/20 08/24/20 08/24/20 Range/Units 14:43 14:43 14:43 ESR 119 H (0-20) mm/hr D-Dimer 2.13 H (<0.60) mg/L FEU BUN (7-17) mg/dL Creatinine (0.52-1.04) mg/dL C-Reactive Protein 237.6 H (<10.0) mg/L 08/24/20 08/25/20 Range/Units 14:43 07:16 ESR (0-20) mm/hr D-Dimer (<0.60) mg/L FEU BUN 6 L (7-17) mg/dL Creatinine 0.46 L 0.51 L (0.52-1.04) mg/dL C-Reactive Protein (<10.0) mg/L Microbiology - Last 24 Hours (Table) 08/23/20 20:46 Urine Culture - Final Urine,Voided 08/23/20 20:46 Blood Culture - Preliminary Blood No Growth after 24 hours Assessment and Plan Assessment: 1 Altered mental status of unclear etiology, computed tomography scan of the brain revealed no acute intracranial process 2 Masslike consolidation of the right lower lobe with pleural fluid and thicken ing, worse compared to previous on 07/02/2020. Possible empyema versus cancer 3 Known history of multiple pulmonary masslike infiltrates from 07/01/2020. Multicentric primary malignancy or metastatic disease is considered. Bilateral bronchial adenopathy. No follow-up in the outpatient setting. 4 Chronic tobacco dependence 5 Chronic obstructive pulmonary disease 6 Multiple sclerosis. 7 Ulcerative colitis with diarrhea 8 Hypertension 9 Hyperlipidemia 10 Anxiety 11 Fibromyalgia 12 History of migraines Plan: The patient was seen and evaluated by Dr. Cho CT chest reviewed Continue vancomycin, add Zosyn Consult interventional radiology for possible FNA of the lung mass/empyema and possible pigtail catheter placement We'll continue to follow and make further recommendations based on her clinical status. I, the cosigning physician, performed a history & physical examination of the patient. Lungs sounds with bilateral scattered rhonchi. Maintaining good O2 saturations in the 90s on room air. I discussed the assessment and plan of care with my nurse practitioner, Leta Underwood. I attest to the above note as dictated by her.
--- NOTE | 2020-08-25 18:20 | PN ---
PROGRESS NOTE DATE OF SERVICE: 08/25/2020 This 60-year-old woman who was admitted with change in mental status possibly had abdominal symptoms also. The patient also had a chest CT scan yesterday which showed a large cavitating mass in the right middle lobe possibly due to lung abscess or necrotic tumor, patchy pulmonary area of consolidation was slightly improved. The patient also had left bronchial adenopathy also. The patient being closely monitored at this time. Cardiothoracic surgery evaluation is sought. Pigtail drainage is being planned at this time. Cultures are negative so far. Past medical history reviewed. REVIEW OF SYSTEMS: Cardiovascular system: No angina or palpitations. RESPIRATORY: As mentioned earlier. GI as mentioned earlier. NERVOUS SYSTEM: No numbness or weakness. CURRENT MEDICATIONS: Reviewed and include: Tylenol. [place]. Ventolin. DuoNeb. Lipitor, Lioresal, Symbicort, Klonopin. Bentyl, Cymbalta, vitamin D2, heparin, Dilaudid, Solu-Medrol, Lopressor, vancomycin, Narcan, Habitrol. Protonix, Zosyn, Lyrica, Ultram vancomycin and Isoptin. PHYSICAL EXAM: Patient is alert and oriented times three. Pulse 83, blood pressure 124/72, respirations 16, temperature 98.3, pulse ox 93% on room air. HEENT: Conjunctivae normal. NECK: No JVD. CARDIOVASCULAR: S1, S2 muffled. RESPIRATORY: Breath sounds diminished at the bases. A few scattered rhonchi and crackles. ABDOMEN: Soft, nontender. LEGS are no edema. No swelling. NERVOUS SYSTEM: No focal deficits. LABS: D-dimer is 2.13. ESR is 119. CBC not available. C-reactive protein is 237. The cultures are negative so far. ASSESSMENT: 1. Right lower lobe possibly lung abscess with failure of outpatient treatment with sounding pneumonia with possible sepsis, present on admission. 2. Rule out lung cancer. 3. Possible acute urinary tract infection present on admission. 4. History of ulcerative colitis. 5. Hypertension. 6. History of degenerative joint disease. 7. History of migraine. 8. History of lumbar degenerative joint disease. 9. History of multiple sclerosis. 10.Anxiety/depression. 11.Remote history of nicotine dependence. 12.Increased WBC. 13.Anemia, normocytic anemia of chronic disease. 14.Elevated alkaline phosphatase. 15.Mild protein calorie malnutrition. 16.FULL CODE. RECOMMENDATIONS AND DISCUSSION: I recommend to continue current medications. Continue to monitor. Symptomatic treatment. Otherwise, at this time, I recommend broad-spectrum IV antibiotics. Otherwise, at this time I would recommend current medications. I would also recommend a 2D echo with Doppler to complete the workup. Other than that, pigtail catheter drainage. Abdomen and pelvis CAT scan was reviewed. Guarded prognosis because of multiple complex medical issues. Further recommendations to follow. MMODL / IJN: [id number] / JERAMIE
--- NOTE | 2020-08-25 18:49 | P.PN ---
Subjective Progress Note Date: 08/25/20 Principal diagnosis: ulcerative colitis, anemia, abdominal pain patient is seen lying in bed tolerating liquid diet. So evidence of abdominal pain. She has had no further diarrhea since presentation. Objective - Vital Signs Vital signs: Vital Signs Temp 98.3 F 08/25/20 07:52 Pulse 83 08/25/20 07:52 Resp 16 08/25/20 07:52 BP 125/78 08/25/20 07:52 Pulse Ox 93 L 08/25/20 07:52 Intake & Output 08/24/20 08/25/20 08/25/20 18:59 06:59 18:59 Other: # Voids 2 1 - Exam On physical examination, patient appears comfortable in no apparent distress. HEAD: Normocephalic, atraumatic. EYES: No scleral icterus. No conjunctival injection. MOUTH: No lesions, tongue midline. NECK: Trachea midline, no gross abnormalities. ABDOMEN: Soft, ildly tender to palpation. Bowel sounds are positive. No organomegaly. No guarding or rigidity. EXTREMITIES: No pedal edema. SKIN: No rashes, no jaundice. NEUROLOGIC: Alert and oriented x3. No focal deficits. - Labs CBC & Chem 7: 08/23/20 20:46 08/25/20 07:16 Labs: Abnormal Lab Results - Last 24 Hours (Table) 08/24/20 08/24/20 08/24/20 Range/Units 14:43 14:43 14:43 ESR 119 H (0-20) mm/hr D-Dimer 2.13 H (<0.60) mg/L FEU BUN (7-17) mg/dL Creatinine (0.52-1.04) mg/dL C-Reactive Protein 237.6 H (<10.0) mg/L 08/24/20 08/25/20 Range/Units 14:43 07:16 ESR (0-20) mm/hr D-Dimer (<0.60) mg/L FEU BUN 6 L (7-17) mg/dL Creatinine 0.46 L 0.51 L (0.52-1.04) mg/dL C-Reactive Protein (<10.0) mg/L Microbiology - Last 24 Hours (Table) 08/23/20 20:46 Urine Culture - Final Urine,Voided 08/23/20 20:46 Blood Culture - Preliminary Blood No Growth after 24 hours Assessment and Plan (1) Ulcerative colitis Narrative/Plan: 60-year-old female with multiple medical comorbidities currently being evaluated for right lung base empyema versus mass with plan for insertion of a double pigtail catheter with possibility of bronchoscopy as per the patient's report. The patient has long-standing history of ulcerative colitis proximally 10 years previously requiring steroid therapy and oral therapy with a 5-ASA agent. Currently the patient is only using Lomotil therapy at home. She reports baseline of 5 loose nonbloody bowel movements daily with associated lower abdominal cramping and pain. The patient has not followed up with the GI service for the past 3-4 years. Current Visit: Yes Status: Acute Code(s): K51.90 - ULCERATIVE COLITIS, UNSPECIFIED, WITHOUT COMPLICATIONS SNOMED Code(s): 39565616 (2) Anemia Current Visit: No Status: Acute Code(s): D64.9 - ANEMIA, UNSPECIFIED SNOMED Code(s): 669562684 (3) Diarrhea Current Visit: Yes Status: Acute Code(s): R19.7 - DIARRHEA, UNSPECIFIED SNOMED Code(s): 99524638 Plan: Supportive care Clear liquid diet, okay to advance as tolerated Currently steroid therapy has been added for treatment of underlying pulmonary issues Bentyl [id number] will be added Testing for Clostridium difficile be ordered ESR and CRP ordered Patient will need follow-up with the GI service after discharge Thank you for allowing us to participate in the care of the patient we will continue to follow
[2020-08-25] MEDS: ATORVASTATIN 80 MG TAB PO SCH (20:13)
[2020-08-25] MEDS ORDERED: VANCOMYCIN TROUGH DUE 1 EACH MISC MISCELLANE ONE (22:00)
[2020-08-25 22:54] LABS: African American GFR (CKD) 115.6 (60.0-200.0); Albumin 3.8 g/dL (3.80-4.90); Albumin/Globulin Ratio 1.73 (1.60-3.17); Anion Gap 18.8 mmol/L (4.00-12.00); BUN/Creat Ratio 11.67 Ratio (12.00-20.00); Calcium 8.7 mg/dL (8.7-10.3); Carbon Dioxide 16.2 mmol/L (21.6-31.8); Globulin 2.2 g/dL (1.6-3.3); Non-African American GFR(CKD) 99.8 (60.0-200.0); Potassium 4.2 mmol/L (3.5-5.5); Total Bilirubin 0.1 mg/dL (0.2-1.2)
[2020-08-26 07:18] LABS: Basophils % (A) 0 %; Eosinophils % (A) 0 %; HCT 26.8 % (34.0-46.0); HGB 8.1 gm/dL (11.4-16.0); Hypochromasia Marked; Lymphocytes # (A) 0.7 k/uL (1.0-4.8); Lymphocytes % (A) 6 %; MCHC 30.4 g/dL (31.0-37.0); MCV 95.6 fL (80.0-100.0); Mean Platelet Volume 8.4; Monocytes # (A) 0.2 k/uL (0-1.0); Monocytes % (A) 2 %; Neutrophils # (A) 10.7 k/uL (1.3-7.7); Neutrophils % (A) 92 %; Platelet Count 326 k/uL (150-450); RBC 2.81 m/uL (3.80-5.40); RDW 15.9 % (11.5-15.5); WBC 11.7 k/uL (3.8-10.6)
[2020-08-26] MEDS: PREGABALIN 50 MG CAP PO SCH ×2 (07:34→21:08)
[2020-08-26] MEDS: methylPREDNISolone SOD SUCCI 125 MG/2 ML VIAL IV SCH ×2 (07:34→15:41)
[2020-08-26] MEDS: HYDROcodone/APAP 10-325MG 1 EACH TAB PO PRN ×2 (07:35→15:48)
[2020-08-26] MEDS: PANTOPRAZOLE 40 MG TABLET PO SCH (07:35)
[2020-08-26] MEDS: METOPROLOL TARTRATE 25 MG TAB PO SCH ×2 (07:36→21:08)
[2020-08-26] MEDS: HEPARIN SODIUM,PORCINE 5,000 UNIT/ML 1 ML VIAL SQ SCH ×2 (07:36→21:08)
[2020-08-26] MEDS: BACLOFEN 10 MG TAB PO SCH ×3 (07:36→21:07)
[2020-08-26] MEDS: PIPERACILLIN-TAZOBACTAM 3.375 GM in SODIUM CHLORIDE 0.9% 100 ML IVPB SCH ×2 (07:37→15:40)
[2020-08-26] MEDS: NICOTINE 21MG/24HR PATCH TRANSDERM SCH (07:37)
[2020-08-26] MEDS: VERAPAMIL SR 240 MG TABLET.ER PO SCH (07:37)
[2020-08-26] MEDS: DICYCLOMINE 20 MG TAB PO SCH ×4 (07:38→21:08)
[2020-08-26] MEDS: DULoxetine HCL 60 MG CAPSULE.DR PO SCH (07:41)
[2020-08-26] MEDS: SYMBICORT 160-4.5 MCG INHALER INHALATION SCH ×2 (09:01→19:25)
[2020-08-26 11:02] LABS: African American GFR (CKD) 115.6 (60.0-200.0); Anion Gap 8.2 mmol/L (4.00-12.00); Calcium 8.7 mg/dL (8.7-10.3); Carbon Dioxide 25.8 mmol/L (21.6-31.8); Non-African American GFR(CKD) 99.8 (60.0-200.0); Potassium 4.7 mmol/L (3.5-5.5)
[2020-08-26] MEDS: HYDROmorphone 0.5 MG/0.5 ML SYRINGE IVP PRN ×3 (11:22→22:18)
[2020-08-26] MEDS: VANCOMYCIN 750 MG in SODIUM CHLORIDE 0.9% 250 ML IVPB SCH ×2 (11:22→18:52)
[2020-08-26] MEDS: clonazePAM 1 MG TAB PO PRN (12:55)
--- NOTE | 2020-08-26 13:40 | P.CNNES ---
History of Present Illness Consult date: 08/26/20 Requesting physician: Jing Andersen Reason for Consult: Episodes of unresponsivenss. History of Present Illness: This is a 60-year-old right-handed woman with the medical history of hypertension, hyperlipidemia, MS, fibromyalgia, migraine, chronic neck and lower back pain, ex-tobacco use, ulcerative colitis diagnosed 10 years ago who presented to the emergency department on the 08/23/2020 with altered mental status. She does not recall of the event of her passing out. She recalls that she was having abdominal pain that day. She denies of any chest pain, feeling dizzy, feeling lightheaded. She does not know the duration of her passing out. Upon waking up she denied any urinary incontinence, tongue bite. But she did have a large loose stool. She states that her son came to the house and found her to have altered mental status, more than usual. He brought her to the emergency department as a result. She denies of any fever. Denies off any medication change recently. She is also complaining of abdominal pain, shortness of breath and diarrhea. Patient had a recent hospital stay in June with the COPD exacerbation. CAT scan which revealed multiple pulmonary masslike infiltrates, multicentric primary malignancy or metastatic disease was being considered. She had a mass at the right pulmonary hilum extending into the anterior basal segment of the right lower lobe measuring 6.5 cm. patient was supposed to follow-up with pulmonology team as an outpatient but failed to schedule an appointment. Regarding her passing out: She's been having these episodes for the last 1 year and had a total of 10-15 episodes. The episodes last 3-4 hours and even longer. Regarding these episodes she follows up in the [facility] and sees the nurse practitioner. Patient had multiple routine EEGs lasting about 1 hour and they're all reported normal. She was not started on any seizure medication. Hospital workup: Initial vital signs is a blood pressure of 152/87, heart rate of 86, respiratory rate of 18, temperature of 98.9 Fahrenheit oral, pulse ox of 97% at room air. During the patient's stay the patient has been afebrile. CT of the head was reported as no acute intracranial process. Ethmoid air cells mucus thickening. Septal perforation anteriorly. I personally reviewed the CT of the head and I agree there is no acute intracranial ischemia or hemorrhage is seen there is no encephalomalacia that was appreciable. EKG was reported as sinus rhythm with short OR. Ventricular rate of 100. Nonspecific ST and T-wave abnormality. Urine analysis shows the the urine appearance was cloudy, nitrate was negative, leukocyte esterase was large, urine blood blood cells 20. Currently the patient was started on vancomycin 7 and 50 mg every 8 hours. As well as that she was started on IV Solu-Medrol. Patient was diagnosed with multiple sclerosis about 6-7 years ago. She said that she had MRI of the brain and the entire spinal imaging over at [facility]. Also as well as she had CSF study. She was told she had lesions on her MRI. As well as her CSF was significant for MS. Regarding her MS symptoms as she had the bilateral lower extremity weakness which improved with time. She is on Ocleuzumab and is due to another dose but pending insurance approval. Regarding her migraine she said that she is on Imitrex and Fioricet when necessa ry she says she rarely uses it. She had Botox in the past but that did not help. Review of Systems Review of system: The 12 point system was reviewed and apparent positive and negative per HPI. Past Medical History Past Medical History: Hyperlipidemia, Hypertension, Musculoskeletal Disorder Additional Past Medical History / Comment(s): migraines, ulcerative colitis, lumbar degenerative disc, fibromyalgia, MS History of Any Multi-Drug Resistant Organisms: None Reported Past Surgical History: Tubal Ligation Additional Past Surgical History / Comment(s): fx femurs, facial surgery, deviated septum, AJITH and RFA to neck and back Past Anesthesia/Blood Transfusion Reactions: No Reported Reaction Past Psychological History: Anxiety, Depression Smoking Status: Former smoker Past Alcohol Use History: Rare Past Drug Use History: None Reported - Past Family History Sister(s) Family Medical History: Cancer Additional Family Medical History / Comment(s): breast Medications and Allergies Home Medications Medication Instructions Recorded Confirmed Type Baclofen [Lioresal] 20 mg PO TID 12/10/14 08/23/20 History Buta/APAP/Caf/Cod 05-719-64-30 1 tab PO TID PRN 12/10/14 08/23/20 History [Fioricet w/Cod 42-901-24-30MG] Diphenox-Atrop 2.5-0.025 mg 1 - 2 tab PO QID PRN 12/10/14 08/23/20 History [Lomotil] Pregabalin [Lyrica] 150 mg PO BID 12/10/14 08/23/20 History Verapamil HCl [Verapamil ER] 240 mg PO DAILY 12/10/14 08/23/20 History clonazePAM [Clonazepam] 1 mg PO BID PRN 12/10/14 08/23/20 History traMADol HCl [Ultram] 50 mg PO TID PRN 12/10/14 08/23/20 History HYDROcodone/APAP 10-325MG [[place] 1 tab PO QID 09/22/15 08/23/20 History 10-325] Albuterol Inhaler [Ventolin Hfa 2 puff INHALATION RT-Q4H PRN 07/01/20 08/23/20 History Inhaler] Albuterol Nebulized [Ventolin 2.5 mg INHALATION RT-TID PRN 07/01/20 08/23/20 History Nebulized] DULoxetine HCL [Cymbalta] 60 mg PO DAILY 07/01/20 08/23/20 History Ergocalciferol (Vitamin D2) 50,000 unit PO KELLEY 07/01/20 08/23/20 History [Drisdol] Metoprolol Tartrate 25 mg PO BID 07/01/20 08/23/20 History modafiniL [Provigil] 200 mg PO BID PRN 07/01/20 08/23/20 History Budesonide-Formot 160-4.5 Mcg 2 puff INHALATION RT-BID #1 puff 07/03/20 08/23/20 Rx [Symbicort 160-4.5 Mcg Inhaler] Atorvastatin Calcium [Lipitor] 80 mg PO HS 08/23/20 08/23/20 History Ipratropium-Albuterol Nebulize 3 ml INHALATION RT-TID PRN 08/23/20 08/23/20 History [Duoneb 0.5 mg-3 mg/3 ml Soln] Nicotine 21Mg/24Hr Patch [Habitrol] 1 patch TRANSDERM DAILY 08/23/20 08/23/20 History Allergies Allergy/AdvReac Type Severity Reaction Status Date / Time No Known Allergies Allergy Verified 08/23/20 21:05 Physical Examination - Vital Signs Vital Signs: Vital Signs Temp Pulse Resp BP Pulse Ox 08/26/20 07:53 20 08/26/20 07:00 98.6 F 71 20 164/89 96 08/26/20 03:41 16 08/26/20 00:42 97.8 F 76 16 129/78 94 L 08/25/20 23:43 16 08/25/20 19:27 16 08/25/20 18:37 98.0 F 75 16 137/79 99 08/25/20 16:22 97.8 F 69 16 139/76 95 Intake and Output 08/25/20 08/26/20 08/26/20 22:59 06:59 14:59 Other: # Voids 1 2 # Bowel Movements 0 GENERAL: The patient is lying in bed and is not in acute distress. CHEST: The heart rate is regular rate rhythm. No murmurs to auscultation. LUNG: Clear to auscultation bilaterally no wheezing noted throughout. Not labored breathing. ABDOMEN/GI: Bowel sounds present in all 4 quadrants. No tenderness to palpation throughout. NEUROLOGICAL: Higher mental function: The patient is awake, alert, oriented to self, place and time. Patient is following commands. No aphasia and no neglect. Cranial nerves: The pupils are round, equal and reactive to light and accommodation. Visual longo are full to confrontation throughout. Extraocular movement is intact no nystagmus is noted. Facial sensation is normal to touch throughout. The facial strength is normal throughout. Hearing is normal bilat erally to hand rub. Tongue is midline and moved [id number] without any difficulty. No dysarthria is noted. Shoulder shrug is normal bilaterally. Motor: The strength is 5 over 5 throughout. Normal tone and bulk. Cerebellum: Normal finger to nose bilaterally. Sensation: Sensation is normal to touch throughout. Reflexes (right/left): 3+ throughout except 2+ at triceps and ankles bilaterally. Plantars are downgoing bilaterally. Results AST of 13, ALTs of 10. Ammonia is 9. Initial white blood cell is 9.0 repeated one is 11.7. ESR is 119 repeated is more than 140 Prognosis study: PT of 10.4, INR 1.0, PTT of 26.9. D-dimer is 2.13 Urine drug screen was nothing was detected the gym all call was less than 10. - Laboratory Findings CBC and BMP: 08/26/20 06:53 08/26/20 06:53 Abnormal Lab Findings: Abnormal Labs 08/23/20 08/23/20 08/23/20 20:46 20:46 20:46 WBC 19.0 H RBC 3.19 L Hgb 9.3 L Hct 29.4 L MCHC RDW 16.1 H Neutrophils # 15.4 H Lymphocytes # ESR D-Dimer Chloride 110 H Carbon Dioxide Anion Gap BUN Creatinine BUN/Creatinine Ratio Glucose Total Bilirubin Alkaline Phosphatase 129 H C-Reactive Protein Total Protein 6.2 L Albumin 3.2 L Urine Appearance Cloudy H Urine Protein 1+ H Urine Ketones Trace H Ur Leukocyte Esterase Large H Urine WBC 20 H Hyaline Casts 24 H Urine Mucus Many H 08/24/20 08/24/20 08/24/20 14:43 14:43 14:43 WBC RBC Hgb Hct MCHC RDW Neutrophils # Lymphocytes # ESR 119 H D-Dimer 2.13 H Chloride Carbon Dioxide Anion Gap BUN Creatinine BUN/Creatinine Ratio Glucose Total Bilirubin Alkaline Phosphatase C-Reactive Protein 237.6 H Total Protein Albumin Urine Appearance Urine Protein Urine Ketones Ur Leukocyte Esterase Urine WBC Hyaline Casts Urine Mucus 08/24/20 08/25/20 08/25/20 14:43 07:16 07:16 WBC RBC Hgb Hct MCHC RDW Neutrophils # Lymphocytes # ESR >140 H D-Dimer Chloride Carbon Dioxide Anion Gap BUN 6 L Creatinine 0.46 L 0.51 L BUN/Creatinine Ratio Glucose Total Bilirubin Alkaline Phosphatase C-Reactive Protein Total Protein Albumin Urine Appearance Urine Protein Urine Ketones Ur Leukocyte Esterase Urine WBC Hyaline Casts Urine Mucus 08/25/20 08/25/20 08/26/20 07:16 15:30 06:53 WBC 11.7 H RBC 2.81 L Hgb 8.1 L Hct 26.8 L MCHC 30.4 L RDW 15.9 H Neutrophils # 10.7 H Lymphocytes # 0.7 L ESR D-Dimer Chloride Carbon Dioxide 16.2 L Anion Gap 18.80 H BUN 7.0 L Creatinine BUN/Creatinine Ratio 11.67 L Glucose 229 H Total Bilirubin 0.1 L Alkaline Phosphatase C-Reactive Protein 20.2 H Total Protein 6.0 L Albumin Urine Appearance Urine Protein Urine Ketones Ur Leukocyte Esterase Urine WBC Hyaline Casts Urine Mucus 08/26/20 06:53 WBC RBC Hgb Hct MCHC RDW Neutrophils # Lymphocytes # ESR D-Dimer Chloride 110 H Carbon Dioxide Anion Gap BUN Creatinine BUN/Creatinine Ratio Glucose 153 H Total Bilirubin Alkaline Phosphatase C-Reactive Protein Total Protein Albumin Urine Appearance Urine Protein Urine Ketones Ur Leukocyte Esterase Urine WBC Hyaline Casts Urine Mucus Assessment and Plan Assessment: Episodes of unresponsivenss. Unlikely seizures. Cannot rule out cardiology etiology. History of multiple sclerosis Masslike consolidation over the right lower lobe with pleural effusion and thickening, worse compared to the previous on 07/02/2020. Possible empyema versus cancer. Abdominal pain with history of ulcerative colitis Leukocytosis Chronic tobacco use Hyperlipidemia Hypertension Anxiety Plan: I ordered a routine EEG. I will not start the patient on antiepileptic drugs unless there is a epileptiform discharges or seizure activity over the EEG. If EEG does not show any seizure or epileptiform activity then I notified the patient that she needs a long-term EEG as an outpatient or even consider epilepsy monitoring unit. 2-D echo is ordered and is pending. Cardiac monitoring On the CT of the head I don't see any lesion or explain the patient's diagnosis of multiple sclerosis. She said that she had the MRI of the brain as well as the all spinal image done as well as cerebrospinal fluid and was told that she has multiple sclerosis. We'll defer the management to the to the her neurologist. She follows up with a nurse pressure at [facility]. Regarding the patient masslike consolidation over the right lower lobe will lead defer the management to the pulmonary team. The patient was notified that she cannot drive for [employer] law because of these episodes of unresponsiveness. She is to avoid the any heavy machinery, unsupervised swimming and avoid heights Thank you for the consult. Carl Klein M.D. Neuro-hospitalist Time with Patient: Greater than 30
--- NOTE | 2020-08-26 15:40 | EEG ---
ELECTROENCEPHALOGRAM REPORT DATE OF SERVICE: 08/26/2020 CLINICAL HISTORY: This is a 60-year-old woman with a past history of multiple sclerosis and migraine as well as ulcerative colitis. She presented to the emergency department on 08/23/2020 after an episode of loss of consciousness as well as abdominal pain and loose stool. This video EEG was obtained to evaluate for seizure and epileptiform activity. RELEVANT MEDICATION: None. EEG TYPE: A routine 21-channel EEG was performed with video using the 10/20 electrode placement system. DESCRIPTION: Wakefulness is only obtained. During wakefulness, there is a posterior dominant-rhythm of low to moderate voltage, reactive, well modulated, of 8.5 to 9.5 hertz activity. There is no physiologic stage II sleep seen. Interictal and ictal: None. ACTIVATION PROCEDURE: Photic stimulation did not evoke a posterior driving response. Hyperventilation was not performed because of the patient's clinical history. EEG DIAGNOSIS: This is a normal routine EEG. CLINICAL INTERPRETATION: This is a normal routine awake EEG. There is no focal slowing. There is no epileptiform activity and no seizures seen during this routine EEG. Clinical correlation is recommended. KRANTHI / MISN: [id number] / MTDD
--- NOTE | 2020-08-26 15:54 | P.PN ---
Subjective Progress Note Date: 08/26/20 Principal diagnosis: Ulcerative colitis, anemia, abdominal pain The patient was seen and examined at the bedside. She states her abdominal pain has improved, she denies any vomiting or diarrhea. States her breathing has gotten better as well. She is scheduled tomorrow for a bronchoscopy. Objective - Vital Signs Vital signs: Vital Signs Temp 98.4 F 08/26/20 14:52 Pulse 60 08/26/20 14:52 Resp 14 08/26/20 14:52 BP 168/73 08/26/20 14:52 Pulse Ox 97 08/26/20 14:52 Intake & Output 08/25/20 08/26/20 08/26/20 18:59 06:59 18:59 Other: # Voids 3 2 1 # Bowel Movements 0 - Exam General appearance: The patient is alert, oriented, in no acute distress. HET: Head is normocephalic and atraumatic. Conjunctiva pink. Sclera anicteric. Neck: Supple. Abdomen: Soft, mild tenderness left lower quadrant, nondistended with bowel sounds. No peritoneal signs. No palpable organomegaly or masses. Extremities: Normal skin color and turgor. No pedal edema. Neurological: No focal deficits. Alert and oriented 3. - Labs CBC & Chem 7: 08/26/20 06:53 08/26/20 06:53 Labs: Abnormal Lab Results - Last 24 Hours (Table) 08/25/20 08/25/20 08/26/20 Range/Units 07:16 15:30 06:53 WBC 11.7 H (3.8-10.6) k/uL RBC 2.81 L (3.80-5.40) m/uL Hgb 8.1 L (11.4-16.0) gm/dL Hct 26.8 L (34.0-46.0) % MCHC 30.4 L (31.0-37.0) g/dL RDW 15.9 H (11.5-15.5) % Neutrophils # 10.7 H (1.3-7.7) k/uL Lymphocytes # 0.7 L (1.0-4.8) k/uL ESR >140 H (0-30) mm/Hr Chloride (96-109) mmol/L Carbon Dioxide 16.2 L (21.6-31.8) mmol/L Anion Gap 18.80 H (4.00-12.00) mmol/L BUN 7.0 L (9.0-27.0) mg/dL BUN/Creatinine Ratio 11.67 L (12.00-20.00) Ratio Glucose 229 H (70-110) mg/dL Total Bilirubin 0.1 L (0.2-1.2) mg/dL Total Protein 6.0 L (6.2-8.2) g/dL 08/26/20 Range/Units 06:53 WBC (3.8-10.6) k/uL RBC (3.80-5.40) m/uL Hgb (11.4-16.0) gm/dL Hct (34.0-46.0) % MCHC (31.0-37.0) g/dL RDW (11.5-15.5) % Neutrophils # (1.3-7.7) k/uL Lymphocytes # (1.0-4.8) k/uL ESR (0-30) mm/Hr Chloride 110 H (96-109) mmol/L Carbon Dioxide (21.6-31.8) mmol/L Anion Gap (4.00-12.00) mmol/L BUN (9.0-27.0) mg/dL BUN/Creatinine Ratio (12.00-20.00) Ratio Glucose 153 H (70-110) mg/dL Total Bilirubin (0.2-1.2) mg/dL Total Protein (6.2-8.2) g/dL Microbiology - Last 24 Hours (Table) 08/23/20 20:46 Blood Culture - Preliminary Blood No Growth after 48 hours Assessment and Plan (1) Ulcerative colitis Narrative/Plan: 60-year-old female with multiple medical comorbidities currently being evaluated for right lung base empyema versus mass with plan for insertion of a double pigtail catheter with possibility of bronchoscopy as per the patient's report. The patient has long-standing history of ulcerative colitis proximally 10 years previously requiring steroid therapy and oral therapy with a 5-ASA agent. Currently the patient is only using Lomotil therapy at home. She reports baseline of 5 loose nonbloody bowel movements daily with associated lower abdominal cramping and pain. The patient has not followed up with the GI service for the past 3-4 years. Current Visit: Yes Status: Acute Code(s): K51.90 - ULCERATIVE COLITIS, UNSPECIFIED, WITHOUT COMPLICATIONS SNOMED Code(s): 82376902 (2) Anemia Current Visit: No Status: Acute Code(s): D64.9 - ANEMIA, UNSPECIFIED SNOMED Code(s): 963891365 (3) Diarrhea Current Visit: Yes Status: Acute Code(s): R19.7 - DIARRHEA, UNSPECIFIED SNOMED Code(s): 14144397 Plan: Supportive care Clear liquid diet, okay to advance as tolerated Currently steroid therapy and antibiotic have been added for treatment of underlying pulmonary issues Bentyl [id number] will be added Testing for Clostridium difficile canceled as no further stools ESR and CRP ordered Patient will need follow-up with the GI service after discharge Thank you for allowing us to participate in the care of the patient we will continue to follow The impression and plan of care has been dictated as directed. Dr. Kirt Benson I performed a history and examination of this patient, discussed the same with the dictator. I agree with the dictator's note ,documented as a scribe. Any additional findings or plans will be noted.
--- NOTE | 2020-08-26 16:58 | PN ---
PROGRESS NOTE DATE OF SERVICE: 08/26/2020 This is a 60-year-old woman who was admitted with significant lesions in the right lower lobe, possibly lung abscess. The possibility of malignancy is also being considered. Dr. Klein is planning bronchoscopy tomorrow and possibly followed with pigtail catheter if the bronchoscopy is negative. The patient also had episodes of syncope previously. Dr. Klein from Neurology has seen the patient, recommended routine EEG at this time. Patient on broad spectrum IV antibiotics. White count is still elevated at 11.2, hemoglobin is 8.1. The baseline hemoglobin earlier this year was 12.7. PAST MEDICAL HISTORY: Reviewed. REVIEW OF SYSTEMS: CARDIOVASCULAR SYSTEM: No angina or palpitations. GI: As mentioned earlier. : As mentioned earlier. NERVOUS SYSTEM: As mentioned earlier. CURRENT MEDICATIONS: Reviewed include: 1. Tylenol. 2. [place]. 3. Ventolin. 4. DuoNeb. 5. Lipitor. 6. Lioresal. 7. Symbicort. 8. Klonopin. 9. Bentyl. 10.Cymbalta. 11.Vitamin D2. 12.Heparin. 13.Dilaudid. 14.Solu-Medrol. 15.Lopressor. 16.Proventil. 17.Habitrol. 18.Protonix. 19.Ultram. 20.Vancomycin. 21.Zosyn. PHYSICAL EXAMINATION: Patient is alert, oriented x3. Pulse is 60, blood pressure 160/67, respiration 14, temperature 98.4, pulse ox 97% on room air. HEENT: Conjunctivae normal. NECK: No jugular venous distension. CARDIOVASCULAR: S1, S2, muffled. RESPIRATION: Breath sounds diminished at the bases, a few scattered rhonchi, no crackles. ABDOMEN: Soft, nontender. No mass palpable. LEGS: No edema, no swelling. NERVOUS SYSTEM: No focal deficits. LABS: WBC is 11.2, hemoglobin is 8.1, sodium 140, potassium 4.7. ASSESSMENT: 1. Right lower lobe possible lung abscess with failure of outpatient treatment with possibly sepsis present on admission. 2. Rule out lung cancer, underlying. 3. Possible acute urinary tract infection, present on admission. 4. Anemia, possibly chronic gastrointestinal blood loss anemia, rule out anemia secondary to chronic infection malignancy. 5. History of ulcerative colitis. 6. Hypertension. 7. History of DJD. 8. History of migraines. 9. History of lumbar degenerative joint disease. 10.History of multiple sclerosis. 11.Anxiety, depression. 12.Remote history of nicotine dependence. 13.Increased WBC. 14.Normocytic anemia. 15.Elevated alkaline phosphatase. 16.Mild protein calorie malnutrition. 17.FULL CODE. RECOMMENDATION: Recommend to continue current medications, management and symptomatic treatment; otherwise, bronchoscopy by Dr. Klein. Continue with the antibiotics. Follow the cultures. I would also follow the patient closely with Gastroenterology regarding the anemia and inflammatory bowel disease. The diarrhea is improved at this time. The prognosis guarded because of multiple complex medical problems: See orders for details. MMODL / IJN: [id number] /
--- NOTE | 2020-08-26 17:05 | P.PN ---
Subjective Progress Note Date: 08/26/20 Principal diagnosis: Altered mental status, right lung pulmonary mass This is a 60-year-old female patient who follows with Dr. Farris as her primary care provider. She has a history of multiple sclerosis, hypertension, hyperlipidemia, mild migraines, lumbar degenerative disc disease, fibromyalgia, ulcerative colitis, anxiety, COPD and chronic tobacco dependence. She was also seen by our group in June 2020 for abnormal CAT scan which revealed multiple pulmonary masslike infiltrates, multicentric primary malignancy or metastatic disease was being considered. She had a mass at the right pulmonary hilum extending into the anterior basal segment of the right lower lobe measuring 6.5 cm. She was to follow up with Dr. Ponce in our office but did not have an appointment scheduled yet. She also had developed a cough and congestion yesterday. She states her son came to the house and found her to have altered mental status, more so than usual, and brought her to the emergency room. She has not much recollection in this regard. Chest x-ray again shows masslike consolidation of the right lower lobe with pleural fluid and thickening that is worse than previous exam 07/02/2020. CAT scan of the abdomen and pelvis revealed probable empyema in the right lung base. Neoplasm not excluded. Interval development of a right pleural effusion. She is seen today in consultation on the regular medical floor. She is awake and alert. She is up ambulating in her room. She is maintaining O2 saturations in the 90s on room air. She's afebrile. Hemodynamically stable. White count 19.0. Hemoglobin 9.3. Sodium 145. Potassium 4.0. Creatinine 0.53. Urine culture pending. Drug screen negative. She was given fluid resuscitation. Initiated on vancomycin and ceftriaxone. The patient is seen today 06/24/2020 in follow-up on the regular medical floor. She is awake and alert in no acute distress. She denies any worsening shortness of breath, cough or congestion. Maintaining O2 saturations in the 90s on room air. She's afebrile. Blood and urine cultures reveal no growth. Creatinine 0.51. Pro-calcitonin 0.09. Follow-up CAT scan reveals large cavitating mass in the right middle lobe not significantly different than previous CT of 07/01/2020. This appearance is nonspecific and could be related to a lung abscess or necrotic tumor. Significant improvement in the patchy pulmonary areas of consolidation in the posterior lung longo compared to computed tomography scan of 07/01/2020 that suggested resolving pneumonia. There is clearing of the left bronchial adenopathy. On 08/26/2020 patient seen in follow-up on the pediatric unit. She is awake and alert, in no acute distress, she is on room air, with a pulse ox 97%, no signs of confusion, her mentation seems to have improved, no fever or chills, breathing seems to be comfortable, she denies any chest pain. Interventional radiology was consulted for possibility of pigtail chest tube however they felt that patient would be better served with a bronchoscopy and endobronchial biopsies and they felt that the pigtail could not be placed into the large cavitating mass in the right middle lobe. Pro-calcitonin was negative, no significant leukocytosis, today's labs have been reviewed, with blood cell count is 11.7, hemoglobin is 8.1, patient remains on Zosyn and vancomycin for empiric antibiotic coverage, she is on bronchodilators and IV steroids. Denies any hemoptysis. She was supposed to follow up with Dr. Ponce in the office following her last admission back in June however she states that she was scared and she did not follow-up in regards to right lung mass. Objective - Vital Signs Vital signs: Vital Signs Temp 98.4 F 08/26/20 14:52 Pulse 60 08/26/20 14:52 Resp 14 08/26/20 15:53 BP 168/73 08/26/20 14:52 Pulse Ox 97 08/26/20 14:52 Intake & Output 08/25/20 08/26/20 08/26/20 18:59 06:59 18:59 Other: # Voids 3 2 1 # Bowel Movements 0 - Exam GENERAL EXAM: Alert, very pleasant 60-year-old white female, with room air pulse ox of 97% comfortable in no apparent distress. HEAD: Normocephalic/atraumatic. EYES: Normal reaction of pupils, equal size. Conjunctiva pink, sclera white. NOSE: Clear with pink turbinates. THROAT: No erythema or exudates. NECK: No masses, no JVD, no thyroid enlargement, no adenopathy. CHEST: No chest wall deformity. Symmetrical expansion. LUNGS: Equal air entry with no crackles, wheeze, rhonchi or dullness. CVS: Regular rate and rhythm, normal S1 and S2, no gallops, no murmurs, no rubs ABDOMEN: Soft, nontender. No hepatosplenomegaly, normal bowel sounds, no guarding or rigidity. EXTREMITIES: No clubbing, no edema, no cyanosis, 2+ pulses and upper and lower extremities. MUSCULOSKELETAL: Muscle strength and tone normal. SPINE: No scoliosis or deformity SKIN: No rashes CENTRAL NERVOUS SYSTEM: Alert and oriented -3. No focal deficits, tone is normal in all 4 extremities. PSYCHIATRIC: Alert and oriented -3. Appropriate affect. Intact judgment and insight. - Labs CBC & Chem 7: 08/26/20 06:53 08/26/20 06:53 Labs: Abnormal Lab Results - Last 24 Hours (Table) 08/25/20 08/25/20 08/26/20 Range/Units 07:16 15:30 06:53 WBC 11.7 H (3.8-10.6) k/uL RBC 2.81 L (3.80-5.40) m/uL Hgb 8.1 L (11.4-16.0) gm/dL Hct 26.8 L (34.0-46.0) % MCHC 30.4 L (31.0-37.0) g/dL RDW 15.9 H (11.5-15.5) % Neutrophils # 10.7 H (1.3-7.7) k/uL Lymphocytes # 0.7 L (1.0-4.8) k/uL ESR >140 H (0-30) mm/Hr Chloride (96-109) mmol/L Carbon Dioxide 16.2 L (21.6-31.8) mmol/L Anion Gap 18.80 H (4.00-12.00) mmol/L BUN 7.0 L (9.0-27.0) mg/dL BUN/Creatinine Ratio 11.67 L (12.00-20.00) Ratio Glucose 229 H (70-110) mg/dL Total Bilirubin 0.1 L (0.2-1.2) mg/dL Total Protein 6.0 L (6.2-8.2) g/dL 08/26/20 Range/Units 06:53 WBC (3.8-10.6) k/uL RBC (3.80-5.40) m/uL Hgb (11.4-16.0) gm/dL Hct (34.0-46.0) % MCHC (31.0-37.0) g/dL RDW (11.5-15.5) % Neutrophils # (1.3-7.7) k/uL Lymphocytes # (1.0-4.8) k/uL ESR (0-30) mm/Hr Chloride 110 H (96-109) mmol/L Carbon Dioxide (21.6-31.8) mmol/L Anion Gap (4.00-12.00) mmol/L BUN (9.0-27.0) mg/dL BUN/Creatinine Ratio (12.00-20.00) Ratio Glucose 153 H (70-110) mg/dL Total Bilirubin (0.2-1.2) mg/dL Total Protein (6.2-8.2) g/dL Microbiology - Last 24 Hours (Table) 08/23/20 20:46 Blood Culture - Preliminary Blood No Growth after 48 hours Assessment and Plan Plan: Assessment: 1 Altered mental status of unclear etiology, computed tomography scan of the brain revealed no acute intracranial process, neurologist on the case 2 Masslike consolidation of the right lower lobe with pleural fluid and t hickening, worse compared to previous on 07/02/2020. Possible empyema versus cancer 3 Known history of multiple pulmonary masslike infiltrates from 07/01/2020. Multicentric primary malignancy or metastatic disease is considered. Bilateral bronchial adenopathy. No follow-up in the outpatient setting. 4 Chronic tobacco dependence 5 Chronic obstructive pulmonary disease 6 Multiple sclerosis. 7 Ulcerative colitis with diarrhea 8 Hypertension 9 Hyperlipidemia 10 Anxiety 11 Fibromyalgia 12 History of migraines Plan: We will board the patient for a bronchoscopy with BAL tomorrow and endobronchial biopsies of the right lower lobe mass, which is suspicious for primary lung cancer. Continue current medical treatment for now, continue current antibiotics although pro-calcitonin came back low. Continue nebulized bronchodilators, we'll decrease the dose of IV steroids to 40 mg every 12 hours, no significant rhonchi or wheezing, on today's exam, nothing by mouth after midnight, this was discussed with the patient who was agreeable to proceed I performed a history & physical examination of the patient and discussed their management with my nurse practitioner, Sarah Rizzo. I reviewed the nurse practitioner's note and agree with the documented findings and plan of care. Mana ng sounds are positive for mentioned breath sounds. The findings and the impression was discussed with the patient. I attest to the documentation by the nurse practitioner. Time with Patient: Less than 30
--- NOTE | 2020-08-26 17:43 | ECHOF ---
Referral Reason:lung abscess MEASUREMENTS -------- HEIGHT: 165.1 cm WEIGHT: 52.2 kg BP: 129/78 RVIDd: 2.8 cm (< 3.3) IVSd: 1.1 cm (0.6 - 1.1) LVIDd: 4.3 cm (3.9 - 5.3) LVPWd: 1.1 cm (0.6 - 1.1) IVSs: 1.7 cm LVIDs: 2.8 cm LVPWs: 1.7 cm LA Diam: 3.9 cm (2.7 - 3.8) LAESV Index (A-L): 40.71 ml/m Ao Diam: 2.9 cm (2.0 - 3.7) AV Cusp: 2.3 cm (1.5 - 2.6) MV EXCURSION: 19.523 mm (> 18.000) MV EF SLOPE: 90 mm/s (70 - 150) EPSS: 0.6 cm MV E Ayden: 1.00 m/s MV DecT: 217 ms MV A Ayden: 0.80 m/s MV E/A Ratio: 1.24 AR PHT: 569 ms RAP: 5.00 mmHg RVSP: 36.04 mmHg FINDINGS -------- Sinus rhythm. This was a technically good study. The left ventricular size is normal. There is borderline concentric left ventricular hypertrophy. Overall left ventricular systolic function is normal with, an EF between 60 - 65 %. The right ventricle is normal in size and function. LA is moderately dilated 34-39 ml/m2 The right atrium is normal in size. Interatrial and interventricular septum intact. There is mild aortic valve sclerosis. There is mild aortic regurgitation. Mild mitral annular calcification present. Mild mitral regurgitation is present. Mild tricuspid regurgitation present. There is mild pulmonary hypertension. The right ventricular systolic pressure, as measured by Doppler, is 36.04mmHg. Trace/mild (physiologic) pulmonic regurgitation. The aortic root size is normal. The inferior vena cava is mildly dilated. There is no pericardial effusion. CONCLUSIONS -------- 1. The left ventricular size is normal. 2. There is borderline concentric left ventricular hypertrophy. 3. Overall left ventricular systolic function is normal with, an EF between 60 - 65 %. 4. LA is moderately dilated 34-39 ml/m2 5. There is mild aortic valve sclerosis. 6. There is mild aortic regurgitation. 7. Mild mitral annular calcification present. 8. Mild mitral regurgitation is present. 9. Mild tricuspid regurgitation present. 10. There is mild pulmonary hypertension. 11. The right ventricular systolic pressure, as measured by Doppler, is 36.04mmHg. 12. Trace/mild (physiologic) pulmonic regurgitation. 13. There is no pericardial effusion. PRODUCT DEVELOPMENT MANAGER: Janelle Brennan RDCS
[2020-08-26] MEDS: LACTATED RINGERS 1,000 ML IV SCH (21:06)
[2020-08-26] MEDS: ATORVASTATIN 80 MG TAB PO SCH (21:08)
[2020-08-26] MEDS: methylPREDNISolone SOD SUCCI 40 MG/ML 1 ML VIAL IV SCH (21:08)
[2020-08-27] MEDS: HYDROcodone/APAP 10-325MG 1 EACH TAB PO PRN ×4 (00:06→18:08)
[2020-08-27] MEDS: PIPERACILLIN-TAZOBACTAM 3.375 GM in SODIUM CHLORIDE 0.9% 100 ML IVPB SCH ×3 (00:36→18:07)
[2020-08-27] MEDS: VANCOMYCIN 750 MG in SODIUM CHLORIDE 0.9% 250 ML IVPB SCH ×3 (02:17→18:07)
[2020-08-27] MEDS: HYDROmorphone 0.5 MG/0.5 ML SYRINGE IVP PRN ×3 (02:26→19:54)
[2020-08-27] MEDS: PANTOPRAZOLE 40 MG TABLET PO SCH (05:18)
[2020-08-27] MEDS ORDERED: VANCOMYCIN TROUGH DUE 1 EACH MISC MISCELLANE ONE (09:00)
[2020-08-27] MEDS: SYMBICORT 160-4.5 MCG INHALER INHALATION SCH ×2 (09:17→20:31)
--- NOTE | 2020-08-27 09:49 | CDI ---
Documentation Clarification Form Date: 08/27/2020 09:18:36 AM From: Jazmyn Mishra RN, CCDS Admit Date: 08/25/2020 10:00:00 AM Patient Name: Kaci Daley Visit Number: [id number] ATTENTION: The Clinical Documentation Specialists (CDI) and [facility] Coding Staff appreciate your assistance in clarifying documentation. Please respond to the clarification below the line at the bottom and electronically sign. The CDI & [facility] Coding staff will review the response and follow-up if needed. Please note: Queries are made part of the Legal Health Record. If you have any questions, please contact the author of this message via ITS. Dr. Jing Andersen Altered Mental Status was documented in the ED note, Consults, and progress notes and requires further specificity and/or etiology if know. History/Risk Factors: HTN, MS, Anxiety, Depression, Chron's disease, migraine Clinical Indicators: 08/23 ED Note: "EMS had been called because the patient had been altered, seeming more confused than usual." 08/24 Pulmonary Consult: "Syncope, weakness, altered mental status. Altered mental status of unclear etiology, computed tomography scan of the brain revealed no acute intracranial process." 08/26 Pulmonary progress note: "Altered mental status, right lung pulmonary mass. Altered mental status of unclear etiology, computed tomography scan of the brain revealed no acute intracranial process, neurologist on the case." 08/26 Neurology Consult: "Episodes of unresponsiveness. Unlikely seizures. Cannot rule out cardiology etiology." 08/23-08/26 Labs: WBC 19/11.7, Neutrophils 16.1/15.9, HGB 9.3/8.1, CRP 237.6/20.2 CT Chest: "Large cavitating mass in right middle lobe. Appearance nonspecific and could relate to lung abscess or necrotic tumor. Resoling Pneumonia. Clearing of left bronchial adenopathy. New small right pleural effusion. 08/26 EEG: Normal routine EEG 08/23 CT Brain:"No acute intracranial process. Ethmoid air cell mucosal thickening. Septal perforation anteriorly Other Documented Diagnosis: Sepsis, possible lung abscess, Possible UTI, Anemia, anxiety, depression, possible lung malignancy or metastatic disease Treatment: [place] 10 QID PRN Pain Klonopin 1 mg PO PRN Anxiety Cymbalta 60 mg PO Daily Dilaudid .5 mg IVP Q 3 hrs PRN moderate pain Solumedrol IV tapering dose- currently @ 40 mg IVP Q 12 hrs PTD IV Vanco Zosyn 3.375 gm IVPB Q 8 hrs 08/23 Rocephin 1000mg IVP x 1 dose 08/23 0.9% NS IVF Bolus 500 cc followed by 130 cc/hr x 1 L In your professional opinion, please clarify the etiology of the Altered Mental Status, if known. Metabolic Encephalopathy (specify Underlying Medical Illness) Toxic Encephalopathy (please Specify drug if known) Other condition (please specify) Unable to determine (Last Revision: February 2018) Metabolic Encephalopathy multifactorial MTDD
[2020-08-27] MEDS: clonazePAM 1 MG TAB PO PRN (09:52)
[2020-08-27] MEDS: NICOTINE 21MG/24HR PATCH TRANSDERM SCH (09:53)
[2020-08-27] MEDS: METOPROLOL TARTRATE 25 MG TAB PO SCH ×2 (09:54→19:51)
[2020-08-27] MEDS: BACLOFEN 10 MG TAB PO SCH ×3 (09:54→22:04)
[2020-08-27] MEDS: VERAPAMIL SR 240 MG TABLET.ER PO SCH (09:54)
[2020-08-27] MEDS: PREGABALIN 50 MG CAP PO SCH ×2 (09:55→19:52)
[2020-08-27] MEDS: DULoxetine HCL 60 MG CAPSULE.DR PO SCH (09:55)
[2020-08-27] MEDS: methylPREDNISolone SOD SUCCI 40 MG/ML 1 ML VIAL IV SCH ×2 (09:55→19:50)
[2020-08-27] MEDS: DICYCLOMINE 20 MG TAB PO SCH ×4 (09:55→22:04)
[2020-08-27] MEDS: HEPARIN SODIUM,PORCINE 5,000 UNIT/ML 1 ML VIAL SQ SCH ×2 (10:01→19:50)
[2020-08-27 10:16] LABS: Basophils % (A) 0 %; Eosinophils % (A) 0 %; HCT 28.3 % (34.0-46.0); HGB 8.3 gm/dL (11.4-16.0); Hypochromasia Marked; Lymphocytes # (A) 1.2 k/uL (1.0-4.8); Lymphocytes % (A) 9 %; MCH 28.1 pg (25.0-35.0); MCHC 29.2 g/dL (31.0-37.0); MCV 96.2 fL (80.0-100.0); Mean Platelet Volume 8.7; Monocytes # (A) 0.6 k/uL (0-1.0); Monocytes % (A) 5 %; Neutrophils # (A) 10.5 k/uL (1.3-7.7); Neutrophils % (A) 85 %; Platelet Count 413 k/uL (150-450); RBC 2.95 m/uL (3.80-5.40); RDW 15.7 % (11.5-15.5); WBC 12.4 k/uL (3.8-10.6)
[2020-08-27 10:31] LABS: African American GFR (CKD) >90 (>60 ml/min/1.73 sqM); Anion Gap 6 mmol/L; Blood Urea Nitrogen 13 mg/dL (7-17); Calcium 9.3 mg/dL (8.4-10.2); Carbon Dioxide 31 mmol/L (22-30); Chloride 106 mmol/L (98-107); Glucose 95 mg/dL (74-99); Non-African American GFR(CKD) >90 (>60 ml/min/1.73 sqM); Potassium 4.2 mmol/L (3.5-5.1); Sodium 143 mmol/L (137-145)
[2020-08-27] MEDS ORDERED: IV FLUID CONTINUATION 1,000 ML IV ONE (11:38)
[2020-08-27] MEDS ORDERED: fentaNYL (PF) 50 MCG/ML 2 ML AMP ONE (11:39)
[2020-08-27] MEDS ORDERED: fentaNYL (PF) 50 MCG/ML 2 ML AMP IVP ONE (11:39)
[2020-08-27] MEDS ORDERED: MIDAZOLAM 2 MG/2 ML VIAL ONE (11:39)
[2020-08-27] MEDS ORDERED: MIDAZOLAM 2 MG/2 ML VIAL IVP ONE (11:39)
[2020-08-27] MEDS ORDERED: PROPOFOL 10 MG/ML 20 ML VIAL IV ONE (11:39)
[2020-08-27] MEDS ORDERED: LIDOCAINE 2% INJ 20 MG/ML INTRATRACH ONE (11:45)
[2020-08-27 12:01] LABS: Erythrocyte Sedimentation Rate 93 mm/hr (0-20)
--- NOTE | 2020-08-27 12:35 | PN ---
PROGRESS NOTE PULMONARY/CRITICAL CARE PROGRESS NOTE: DATE OF SERVICE: 08/27/2020 This is a 60-year-old female who we have been evaluating for masslike consolidation in the right middle lobe, right lower lobe. Today, she underwent bronchoscopy. There was some endobronchial disease and it was sampled. The patient tolerated the procedure well. She has a known history of multiple pulmonary masslike infiltrates from a previous visit here back in June 2020. At that time, she did not have any followup. She also has a history of chronic tobacco dependence, COPD, multiple sclerosis, ulcers, colitis, hypertension, hyperlipidemia, anxiety, fibromyalgia, and migraine cephalgia. She was stable before the procedure today. Current vital signs are stable. Temperature 98, heart rate 64, respiratory rate 18, blood pressure 164/87 mean 112, room air saturations 96%. She appears in no acute distress. HEENT: Examination is grossly unremarkable. NECK: Supple, full range of motion. No adenopathy. CARDIOVASCULAR: Examination reveals regular rhythm and rate. S1, S2 normal. LUNGS: Reveal clear breath sounds. No wheezes, rhonchi, or crackles. ABDOMEN: Soft. EXTREMITIES: Intact. SKIN: Without rash. NEUROLOGIC: Examination is brief but nonfocal. LABS: Reviewed. White count 12.4, hemoglobin 8.3, hematocrit 28.3, platelet count normal. Sodium, potassium normal. Chloride normal, CO2 is 31, BUN and creatinine were 13 and 0.66. Anion gap is normal at 6. The rest of the labs look okay. Microbiology is all negative. No recent chest x-ray. CT scan from August 24 has been reviewed. ASSESSMENT: 1. Mental status changes of unclear etiology. CT of the brain was negative. 2. Masslike consolidation involving the right middle lobe, right lower lobe, status post bronchoscopy on August 27 with endobronchial, and transbronchial biopsies as well as brushes and washes of that area. 3. Known history of multiple pulmonary masslike infiltrates dated July 01, 2020. The patient apparently did not have follow up at that time. 4. Chronic tobacco dependence. 5. Chronic obstructive pulmonary disease. 6. Multiple sclerosis. 7. Ulcerative colitis. 8. Hypertension. 9. Hyperlipidemia. 10.Anxiety. 11.Fibromyalgia. 12.History of migraine cephalgia. PLAN: The patient underwent procedure today. It was bronchoscopy evaluation of the airways, multiple biopsies, brushes and washes. Dr. Klein and Nick Rizzo did the procedure. The specimens were sent to the laboratory for analysis. She will be recovered by Anesthesia. She will be taken back to her room. Sampling results may not be back for a couple of days. MMODL / IJN: [id number] /
[2020-08-27 15:06] LABS: Appearance,BF Hazy; Color,BF Pink; Nucleated Cells, Body Fluid 20 /uL; RBC, Body Fluid 11000 /uL
--- NOTE | 2020-08-27 15:11 | PN ---
PROGRESS NOTE DATE OF SERVICE: 08/27/2020 This is a 60-year-old woman who was admitted with significant lesions in the right lobe, possibly of lung abscess. The patient is slated to have a bronchoscopy today by Dr. Klein. No chest pain. No palpitations. No fever. PHYSICAL EXAMINATION: Alert and oriented x3. Pulse 71, blood pressure 140/89, respiration 18, temperature 98.1, pulse ox 97% on room air. HEENT: Conjunctivae normal. NECK: No jugular venous distension. CARDIOVASCULAR SYSTEM: S1, S2, muffled. RESPIRATORY SYSTEM: Breath sounds diminished at the bases, scattered rhonchi, no crackles. ABDOMEN: Soft, nontender. LEGS: No edema, no swelling. NERVOUS SYSTEM: Higher functions as mentioned earlier. Moves all 4 limbs. No focal motor or sensory deficits. LYMPHATICS: No lymph node enlargement in the neck or axillae. SKIN: No ulcer, rash, bleeding. JOINTS: No active deformity. LABS: WBC is 12.2, hemoglobin is 8.1. ASSESSMENT: 1. Right lower lobe possible lung abscess with failure of outpatient treatment with possible sepsis, present on admission. 2. Rule out underlying lung cancer. 3. Possible acute urinary tract infection, present on admission. 4. Anemia, possibly chronic gastrointestinal blood loss anemia, rule out anemia secondary to chronic infection malignancy. 5. History of ulcerative colitis. 6. Hypertension. 7. History of degenerative joint disease. 8. History of migraine. 9. Lumbar DJD. 10.History of multiple sclerosis. 11.History of anxiety, depression. 12.Remote history of nicotine dependence. 13.Increased WBC. 14.Normocytic anemia. 15.Elevated alkaline phosphatase. 16.Mild protein calorie malnutrition. 17.FULL CODE. RECOMMENDATION: Recommend to continue current medications, continue symptomatic treatment, await bronchoscopic report. Otherwise, continue rest of medications. Follow the cultures and add empiric antibiotics. Guarded prognosis. Further recommendations to follow. MMODL / IJN: [id number] /
[2020-08-27 15:27] LABS: Mononuclear WBC,Body Fluid 9 %; Polynuclear WBC,Body Fluid 91 %; Total Cells Counted,Body Fluid 100
--- NOTE | 2020-08-27 19:24 | P.PN ---
Subjective Progress Note Date: 08/27/20 The patient had the bronchoscopy performed. She denies any further episodes of passing out. Denies of any weakness any numbness. Objective - Vital Signs Vital signs: Vital Signs Temp 98.1 F 08/27/20 12:35 Pulse 76 08/27/20 14:00 Resp 16 08/27/20 14:00 BP 125/86 08/27/20 14:00 Pulse Ox 96 08/27/20 14:00 Intake & Output 08/26/20 08/27/20 08/27/20 18:59 06:59 18:59 Other: # Voids 1 2 1 # Bowel Movements 1 - Exam GENERAL: The patient is lying in bed and is not in acute distress. CHEST: The heart rate is regular rate rhythm. No murmurs to auscultation. LUNG: Clear to auscultation bilaterally no wheezing noted throughout. Not labored breathing. ABDOMEN/GI: Bowel sounds present in all 4 quadrants. No tenderness to palpation throughout. NEUROLOGICAL: Higher mental function: The patient is awake, alert, oriented to self, place and time. Patient is following commands. No aphasia and no neglect. Cranial nerves: The pupils are round, equal and reactive to light and accommodation. Visual longo are full to confrontation throughout. Extraocular movement is intact no nystagmus is noted. Facial sensation is normal to touch throughout. The facial strength is normal throughout. Hearing is normal bilaterally to hand rub. Tongue is midline and moved [id number] without any difficulty. No dysarthria is noted. Shoulder shrug is normal bilaterally. Motor: The strength is 5 over 5 throughout. Normal tone and bulk. Cerebellum: Normal finger to nose bilaterally. Sensation: Sensation is normal to touch throughout. Reflexes (right/left): 3+ throughout except 2+ at triceps and ankles bilaterally. Plantars are downgoing bilaterally. - Labs CBC & Chem 7: 08/27/20 09:38 08/27/20 09:38 Labs: Abnormal Lab Results - Last 24 Hours (Table) 08/27/20 08/27/20 Range/Units 09:38 09:38 WBC 12.4 H (3.8-10.6) k/uL RBC 2.95 L (3.80-5.40) m/uL Hgb 8.3 L (11.4-16.0) gm/dL Hct 28.3 L (34.0-46.0) % MCHC 29.2 L (31.0-37.0) g/dL RDW 15.7 H (11.5-15.5) % Neutrophils # 10.5 H (1.3-7.7) k/uL ESR 93 H (0-20) mm/hr Carbon Dioxide 31 H (22-30) mmol/L C-Reactive Protein 32.0 H (<10.0) mg/L Microbiology - Last 24 Hours (Table) 08/27/20 10:15 Sputum Culture - Preliminary Sputum 08/23/20 20:46 Blood Culture - Preliminary Blood No Growth after 72 hours Assessment and Plan Assessment: Episodes of unresponsivenss. Unlikely seizures. Cannot rule out cardiology etiology. History of multiple sclerosis Masslike consolidation over the right lower lobe with pleural effusion and thickening, worse compared to the previous on 07/02/2020. Possible empyema versus cancer. Abdominal pain with history of ulcerative colitis Leukocytosis Chronic tobacco use Hyperlipidemia Hypertension Anxiety Plan: routine EEG: Normal. There is no epileptiform activity, seizure or focal slowing seen on the EEG at. Will not start patient on anti-epileptic drugs. Recommend a long-term EEG as an outpatient or even consider epilepsy monitoring unit. 2-D echo: Left ventricle systolic function is a 60-65%. Borderline concentric left ventricular hypertrophy. Atrial as moderate dilated. Cardiac monitoring On the CT of the head I don't see any lesion or explain the patient's diagnosis of multiple sclerosis. She said that she had the MRI of the brain as well as the all spinal image done as well as cerebrospinal fluid and was told that she has multiple sclerosis. We'll defer the management to the to the her neurologist. She follows up with a nurse pressure at [facility]. Regarding the patient masslike consolidation over the right lower lobe will lead defer the management to the pulmonary team. 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 She is to avoid the any heavy machinery, unsupervised swimming and avoid heights. Upon discharge the patient needs to follow-up with a neurologist as an outpa tient. Neurology will sign off. Please reconsult if needed. Carl Klein M.D. Neuro-hospitalist Time with Patient: Greater than 30
[2020-08-27] MEDS: ATORVASTATIN 80 MG TAB PO SCH (19:52)
[2020-08-27] MEDS: LACTATED RINGERS 1,000 ML IV SCH (22:04)
--- NOTE | 2020-08-27 22:19 | PN ---
PROGRESS NOTE DATE OF DICTATION: 08/27/2020 Patient is a 60-year-old pleasant white female with longstanding history of ulcerative colitis, presently on no medications other than Lomotil, admitted to the hospital with abdominal pain and anemia. She remains on IV Solu-Medrol for exacerbation of COPD/asthma. She is doing much better. She underwent a bronchoscopy this morning. She denies any new symptoms. Had about 2 to 3 soft bowel movements today; no bleeding. PHYSICAL EXAMINATION: Appears comfortable. No apparent distress. Vital signs are stable. Blood pressure is 112/45, pulse rate 82 per minute and temperature 98.1. HEENT examination unremarkable. Conjunctivae pink. Sclerae anicteric. Oral cavity no lesions. NECK: No JVD or lymph node enlargement. CHEST: Clear to auscultation. HEART: Regular rate and rhythm. ABDOMEN: Soft. Bowel sounds are positive. EXTREMITIES: No pedal edema. NEUROLOGIC: She is alert and oriented x3. No focal deficits. LABS: WBC 12.4, hemoglobin 8.3, platelets 413. CRP is 32. Bronchial washings are still pending. IMPRESSION: 1. Longstanding history of ulcerative colitis. Currently on Lomotil as needed. She has been on steroids for COPD exacerbation. Currently the diarrhea has improved. No further episodes of abdominal pain. 2. Normocytic anemia, probably anemia of chronic disease. Cannot rule out occult GI blood loss. 3. Exacerbation of chronic obstructive pulmonary disease, on IV steroids, status post bronchoscopy this morning. 4. Possible pneumonia, on antibiotics. RECOMMENDATIONS: 1. Continue current medications. 2. Lomotil as needed. 3. Will plan on a colonoscopy on an outpatient basis following discharge from the hospital. 4. Monitor labs. Thank you for this consultation. MMODL / IJN: [id number] /
[2020-08-28] MEDS: HYDROcodone/APAP 10-325MG 1 EACH TAB PO PRN ×4 (00:49→19:31)
[2020-08-28] MEDS: PIPERACILLIN-TAZOBACTAM 3.375 GM in SODIUM CHLORIDE 0.9% 100 ML IVPB SCH ×2 (00:49→08:35)
--- NOTE | 2020-08-28 01:12 | PCN ---
PROCEDURE NOTE PROCEDURE PERFORMED: Bronchoscopy, airway examination, therapeutic lavage, BAL, brushes right middle lobe, endobronchial and transbronchial biopsies right middle lobe and pull cytology, right middle lobe and right lower lobe. PREOP DIAGNOSIS: Lung mass, rule out lung cancer. POSTOP DIAGNOSIS: Lung mass, rule out lung cancer. OPERATORS: Dr. Klein and Joanna Rizzo. ANESTHESIA: Davide Soriano CRNA provided general anesthesia. PROCEDURE DETAILS: The procedure took place in room #2. There was informed consent and universal timeout. After the patient was adequately sedated and being fully monitored, the bronchoscope was inserted through the right nostril. It passed through the right nasopharynx into the oropharynx. The hypopharynx was identified. The hypopharyngeal structures, including anterior commissure, true cords, false cords, arytenoids, piriform sinuses, right and left and vallecula all appeared normal. After topicalization, the bronchoscope was pushed through the glottic opening into the trachea. Trachea appeared normal. Initially, we evaluated the left side. Left upper lobe and its 2 segments, lingula and its 2 segments and left lower lobe and its 4 segments all appeared normal. The tracheal jae was sharp. The right upper lobe and its 3 segments appeared normal. The abnormalities were noted primarily in the distal bronchus intermedius, particularly involving the right middle lobe. The mucosa was heaped and abnormal appearing. It was very vascular. It bled easily. There was vascular engorgement. Next, we did brushes in the area of the right middle lobe abnormalities. Subsequent to that, we did endobronchial and transbronchial biopsies in the right middle lobe and subsequent to that, we did pull cytology in the right middle lobe and right lower lobe. The patient tolerated the procedure well. There was minimal bleeding. The specimens will be sent to the laboratory for analysis. The patient was stable throughout the procedure and the bronchoscope was withdrawn. There was no immediate complication. MMODL / IJN: [id number] / MTDD
[2020-08-28] MEDS: VANCOMYCIN 750 MG in SODIUM CHLORIDE 0.9% 250 ML IVPB SCH ×2 (02:26→10:49)
[2020-08-28] MEDS: HYDROmorphone 0.5 MG/0.5 ML SYRINGE IVP PRN ×6 (02:32→21:33)
[2020-08-28] MEDS ORDERED: amLODIPine 5 MG TAB PO STA (03:05)
[2020-08-28] MEDS: PANTOPRAZOLE 40 MG TABLET PO SCH (06:08)
[2020-08-28] MEDS: SYMBICORT 160-4.5 MCG INHALER INHALATION SCH ×2 (07:43→21:24)
[2020-08-28] MEDS: methylPREDNISolone SOD SUCCI 40 MG/ML 1 ML VIAL IV SCH (08:39)
[2020-08-28] MEDS: HEPARIN SODIUM,PORCINE 5,000 UNIT/ML 1 ML VIAL SQ SCH ×2 (08:39→20:49)
[2020-08-28 08:41] LABS: African American GFR (CKD) >90 (>60 ml/min/1.73 sqM); Anion Gap 9 mmol/L; Blood Urea Nitrogen 14 mg/dL (7-17); Carbon Dioxide 32 mmol/L (22-30); Chloride 102 mmol/L (98-107); Glucose 133 mg/dL (74-99); Non-African American GFR(CKD) >90 (>60 ml/min/1.73 sqM); Potassium 3.7 mmol/L (3.5-5.1); Sodium 143 mmol/L (137-145)
[2020-08-28] MEDS: DULoxetine HCL 60 MG CAPSULE.DR PO SCH (08:43)
[2020-08-28] MEDS: DICYCLOMINE 20 MG TAB PO SCH ×4 (08:43→20:49)
[2020-08-28] MEDS: METOPROLOL TARTRATE 25 MG TAB PO SCH ×2 (08:44→20:49)
[2020-08-28] MEDS: BACLOFEN 10 MG TAB PO SCH ×3 (08:44→20:49)
[2020-08-28] MEDS: NICOTINE 21MG/24HR PATCH TRANSDERM SCH (08:45)
[2020-08-28] MEDS: PREGABALIN 50 MG CAP PO SCH ×2 (08:45→20:49)
[2020-08-28 09:07] LABS: Anisocytosis Slight; Basophils % (A) 0 %; Eosinophils % (A) 0 %; HCT 28.1 % (34.0-46.0); HGB 8.8 gm/dL (11.4-16.0); Hypochromasia Marked; Lymphocytes # (A) 1.5 k/uL (1.0-4.8); Lymphocytes % (A) 11 %; MCH 29.1 pg (25.0-35.0); MCHC 31.4 g/dL (31.0-37.0); MCV 92.8 fL (80.0-100.0); Mean Platelet Volume 8.7; Monocytes # (A) 0.7 k/uL (0-1.0); Monocytes % (A) 5 %; Neutrophils # (A) 11.3 k/uL (1.3-7.7); Neutrophils % (A) 83 %; Platelet Count 385 k/uL (150-450); RBC 3.03 m/uL (3.80-5.40); RDW 16.1 % (11.5-15.5); WBC 13.7 k/uL (3.8-10.6)
[2020-08-28] MEDS: clonazePAM 1 MG TAB PO PRN (09:39)
[2020-08-28 10:15] LABS: Poikilocytosis (M) Present
[2020-08-28] MEDS: VERAPAMIL SR 240 MG TABLET.ER PO SCH (10:50)
--- NOTE | 2020-08-28 12:48 | P.PN ---
Subjective Progress Note Date: 08/28/20 Principal diagnosis: Altered mental status, right lung pulmonary mass This is a 60-year-old female patient who follows with Dr. Farris as her primary care provider. She has a history of multiple sclerosis, hypertension, hyperlipidemia, mild migraines, lumbar degenerative disc disease, fibromyalgia, ulcerative colitis, anxiety, COPD and chronic tobacco dependence. She was also seen by our group in June 2020 for abnormal CAT scan which revealed multiple pulmonary masslike infiltrates, multicentric primary malignancy or metastatic disease was being considered. She had a mass at the right pulmonary hilum extending into the anterior basal segment of the right lower lobe measuring 6.5 cm. She was to follow up with Dr. Ponce in our office but did not have an appointment scheduled yet. She also had developed a cough and congestion yesterday. She states her son came to the house and found her to have altered mental status, more so than usual, and brought her to the emergency room. She has not much recollection in this regard. Chest x-ray again shows masslike consolidation of the right lower lobe with pleural fluid and thickening that is worse than previous exam 07/02/2020. CAT scan of the abdomen and pelvis revealed probable empyema in the right lung base. Neoplasm not excluded. Interval development of a right pleural effusion. She is seen today in consultation on the regular medical floor. She is awake and alert. She is up ambulating in her room. She is maintaining O2 saturations in the 90s on room air. She's afebrile. Hemodynamically stable. White count 19.0. Hemoglobin 9.3. Sodium 145. Potassium 4.0. Creatinine 0.53. Urine culture pending. Drug screen negative. She was given fluid resuscitation. Initiated on vancomycin and ceftriaxone. The patient is seen today 06/24/2020 in follow-up on the regular medical floor. She is awake and alert in no acute distress. She denies any worsening shortness of breath, cough or congestion. Maintaining O2 saturations in the 90s on room air. She's afebrile. Blood and urine cultures reveal no growth. Creatinine 0.51. Pro-calcitonin 0.09. Follow-up CAT scan reveals large cavitating mass in the right middle lobe not significantly different than previous CT of 07/01/2020. This appearance is nonspecific and could be related to a lung abscess or necrotic tumor. Significant improvement in the patchy pulmonary areas of consolidation in the posterior lung longo compared to computed tomography scan of 07/01/2020 that suggested resolving pneumonia. There is clearing of the left bronchial adenopathy. On 08/26/2020 patient seen in follow-up on the pediatric unit. She is awake and alert, in no acute distress, she is on room air, with a pulse ox 97%, no signs of confusion, her mentation seems to have improved, no fever or chills, breathing seems to be comfortable, she denies any chest pain. Interventional radiology was consulted for possibility of pigtail chest tube however they felt that patient would be better served with a bronchoscopy and endobronchial biopsies and they felt that the pigtail could not be placed into the large cavitating mass in the right middle lobe. Pro-calcitonin was negative, no significant leukocytosis, today's labs have been reviewed, with blood cell count is 11.7, hemoglobin is 8.1, patient remains on Zosyn and vancomycin for empiric antibiotic coverage, she is on bronchodilators and IV steroids. Denies any hemoptysis. She was supposed to follow up with Dr. Ponce in the office following her last admission back in June however she states that she was scared and she did not follow-up in regards to right lung mass. On 08/28/2020 patient seen in follow-up in the pediatric unit, patient had a Bronchoscopy yesterday and had biopsies endobronchially and transbronchial of a right middle lobe, biopsy results are still pending, bronchial lavage cultures are pending, Gram stain showed no organisms. Patient remains on antibiotic coverage in the form of Zosyn and vancomycin, she has had no fever or chills. Procalcitonin was negative at 0.09. And the large cavitating mass in the right middle lobe is suspicious for primary lung malignancy, rather than pneumonia. We'll discontinue the antibiotics, patient has had no fever or chills, no chest pain, no hemoptysis, no significant cough, or congestion. Objective - Vital Signs Vital signs: Vital Signs Temp 98.9 F 08/28/20 11:59 Pulse 64 08/28/20 11:59 Resp 12 08/28/20 11:59 BP 124/77 08/28/20 11:59 Pulse Ox 95 08/28/20 11:59 Intake & Output 08/27/20 08/28/2020 18:59 06:59 18:59 Intake Total 1160 Balance 1160 Intake: Oral 1160 Other: # Voids 1 # Bowel Movements 1 3 - Exam GENERAL EXAM: Alert, very pleasant 60-year-old white female, with room air pulse ox of 99% comfortable in no apparent distress. HEAD: Normocephalic/atraumatic. EYES: Normal reaction of pupils, equal size. Conjunctiva pink, sclera white. NOSE: Clear with pink turbinates. THROAT: No erythema or exudates. NECK: No masses, no JVD, no thyroid enlargement, no adenopathy. CHEST: No chest wall deformity. Symmetrical expansion. LUNGS: Equal air entry with no crackles, wheeze, rhonchi or dullness. CVS: Regular rate and rhythm, normal S1 and S2, no gallops, no murmurs, no rubs ABDOMEN: Soft, nontender. No hepatosplenomegaly, normal bowel sounds, no guarding or rigidity. EXTREMITIES: No clubbing, no edema, no cyanosis, 2+ pulses and upper and lower extremities. MUSCULOSKELETAL: Muscle strength and tone normal. SPINE: No scoliosis or deformity SKIN: No rashes CENTRAL NERVOUS SYSTEM: Alert and oriented -3. No focal deficits, tone is normal in all 4 extremities. PSYCHIATRIC: Alert and oriented -3. Appropriate affect. Intact judgment and insight. - Labs CBC & Chem 7: 08/28/20 08:11 08/28/20 08:11 Labs: Abnormal Lab Results - Last 24 Hours (Table) 08/28/20 08/28/20 Range/Units 08:11 08:11 WBC 13.7 H (3.8-10.6) k/uL RBC 3.03 L (3.80-5.40) m/uL Hgb 8.8 L (11.4-16.0) gm/dL Hct 28.1 L (34.0-46.0) % RDW 16.1 H (11.5-15.5) % Neutrophils # 11.3 H (1.3-7.7) k/uL Carbon Dioxide 32 H (22-30) mmol/L Glucose 133 H (74-99) mg/dL Microbiology - Last 24 Hours (Table) 08/27/20 10:15 Gram Stain - Preliminary Sputum Sputum Culture - Preliminary Mary albicans 08/27/20 11:38 Gram Stain - Preliminary Bronchoalviolar Lavage - Right Bronchial Washings Culture - Preliminary 08/23/20 20:46 Blood Culture - Preliminary Blood No Growth after 96 hours 08/27/20 11:38 Acid Fast Bacilli Culture - Preliminary Bronchoalviolar Lavage - Right 08/27/20 11:38 Fungal Culture - Preliminary Bronchoalviolar Lavage - Right Assessment and Plan Plan: Assessment: 1 Altered mental status of unclear etiology with episodes of unresponsiveness, computed tomography scan of the brain revealed no acute intracranial process, EEG showed no evidence of seizures 2 Masslike consolidation of the right lower lobe with pleural fluid and thickening, worse compared to previous on 07/02/2020. Possible empyema versus cancer, status post bronchoscopy with endobronchial and transbronchial biopsies of the right middle lobe, awaiting biopsy results, bronchial lavage cultures so far have shown no organisms on Gram stain 3 Known history of multiple pulmonary masslike infiltrates from 07/01/2020. Multicentric primary malignancy or metastatic disease is considered. Bilateral bronchial adenopathy. No follow-up in the outpatient setting. 4 Chronic tobacco dependence 5 Chronic obstructive pulmonary disease 6 Multiple sclerosis. 7 Ulcerative colitis with diarrhea 8 Hypertension 9 Hyperlipidemia 10 Anxiety 11 Fibromyalgia 12 History of migraines Plan: Patient underwent bronchoscopy biopsies of the right middle lobe, biopsy results are pending, Gram stain bronchial lavage has shown no organisms, patient has had no fever or chills, doubt possibility of pneumonia based on low procalcitonin level. She has had no fever or chills, no significant cough or phlegm production. Can discontinue the IV antibiotics, we'll switch the IV steroids to oral prednisone, patient can be considered for discharge home today, she will need to see us in the office on outpatient basis for follow-up on the right lung biopsy results. She'll need outpatient follow-up with Dr. Klein in 7-10 days I performed a history & physical examination of the patient and discussed their management with my nurse practitioner, Sarah Rizzo. I reviewed the nurse practitioner's note and agree with the documented findings and plan of care. Lung sounds are positive for mentioned breath sounds. The findings and the impression was discussed with the patient. I attest to the documentation by the nurse practitioner. Time with Patient: Less than 30
[2020-08-28 14:33] LABS: Phencyclidine Screen,Urine Not Detected (NotDetected); Urn Cannabinoid Scrn Not Detected (NotDetected)
[2020-08-28 14:34] LABS: Amphetamine Screen,Urine Not Detected (NotDetected); Barbiturate Screen,Urine Not Detected (NotDetected); Benzodiazepines Screen,Urine Not Detected (NotDetected); Cocaine Screen,Urine Not Detected (NotDetected); Methadone Screen, Urine Not Detected (NotDetected); Opiate Screen,Urine Detected (NotDetected); Oxycodone Screen, Urine Not Detected (NotDetected); Tricyclic Antidepressant,Urine Not Detected (NotDetected)
[2020-08-28] MEDS: DIPHENOX-ATROP 2.5-0.025 MG 1 EACH TAB PO PRN (15:10)
--- NOTE | 2020-08-28 15:56 | P.PN ---
Subjective Progress Note Date: 08/28/20 Principal diagnosis: Ulcerative colitis, anemia, abdominal pain The patient was seen and examined at the bedside. She states her abdominal pain has improved, she denies any nausea or vomiting. She states she did start having diarrhea yesterday evening, had 3 episodes in another 2-3 today. He denies any rectal bleeding or melena. States her breathing has gotten better as well. Objective - Vital Signs Vital signs: Vital Signs Temp 98.9 F 08/28/20 11:59 Pulse 64 08/28/20 11:59 Resp 12 08/28/20 11:59 BP 124/77 08/28/20 11:59 Pulse Ox 95 08/28/20 11:59 Intake & Output 08/27/20 08/28/20 08/28/20 18:59 06:59 18:59 Intake Total 1160 Balance 1160 Intake: Oral 1160 Other: # Voids 1 2 # Bowel Movements 1 3 2 - Exam General appearance: The patient is alert, oriented, in no acute distress. HET: Head is normocephalic and atraumatic. Conjunctiva pink. Sclera anicteric. Neck: Supple. Abdomen: Soft, mild tenderness left lower quadrant, nondistended with bowel sounds. No peritoneal signs. No palpable organomegaly or masses. Extremities: Normal skin color and turgor. No pedal edema. Neurological: No focal deficits. Alert and oriented 3. - Labs CBC & Chem 7: 08/28/20 08:11 08/28/20 08:11 Labs: Abnormal Lab Results - Last 24 Hours (Table) 08/27/20 08/28/20 08/28/20 Range/Units 11:38 08:11 08:11 WBC 13.7 H (3.8-10.6) k/uL RBC 3.03 L (3.80-5.40) m/uL Hgb 8.8 L (11.4-16.0) gm/dL Hct 28.1 L (34.0-46.0) % RDW 16.1 H (11.5-15.5) % Neutrophils # 11.3 H (1.3-7.7) k/uL Carbon Dioxide 32 H (22-30) mmol/L Glucose 133 H (74-99) mg/dL Urine Opiates Screen (NotDetected) Viral Test See Below H 08/28/20 Range/Units 13:50 WBC (3.8-10.6) k/uL RBC (3.80-5.40) m/uL Hgb (11.4-16.0) gm/dL Hct (34.0-46.0) % RDW (11.5-15.5) % Neutrophils # (1.3-7.7) k/uL Carbon Dioxide (22-30) mmol/L Glucose (74-99) mg/dL Urine Opiates Screen Detected H (NotDetected) Viral Test Microbiology - Last 24 Hours (Table) 08/27/20 10:15 Gram Stain - Preliminary Sputum Sputum Culture - Preliminary Mary albicans 08/27/20 11:38 Gram Stain - Preliminary Bronchoalviolar Lavage - Right Bronchial Washings Culture - Preliminary 08/23/20 20:46 Blood Culture - Preliminary Blood No Growth after 96 hours 08/27/20 11:38 Acid Fast Bacilli Culture - Preliminary Bronchoalviolar Lavage - Right 08/27/20 11:38 Fungal Culture - Preliminary Bronchoalviolar Lavage - Right Assessment and Plan (1) Ulcerative colitis Narrative/Plan: 60-year-old female with multiple medical comorbidities currently being evaluated for right lung base empyema versus mass with plan for insertion of a double pigtail catheter with possibility of bronchoscopy as per the patient's report. The patient has long-standing history of ulcerative colitis proximally 10 years previously requiring steroid therapy and oral therapy with a 5-ASA agent. Currently the patient is only using Lomotil therapy at home. She reports baseline of 5 loose nonbloody bowel movements daily with associated lower abdominal cramping and pain. The patient has not followed up with the GI service for the past 3-4 years. Current Visit: Yes Status: Acute Code(s): K51.90 - ULCERATIVE COLITIS, UNSPECIFIED, WITHOUT COMPLICATIONS SNOMED Code(s): 72682060 (2) Anemia Current Visit: No Status: Acute Code(s): D64.9 - ANEMIA, UNSPECIFIED S NOMED Code(s): 902911081 (3) Diarrhea Current Visit: Yes Status: Acute Code(s): R19.7 - DIARRHEA, UNSPECIFIED SNOMED Code(s): 23308952 Plan: Supportive care Advance diet as tolerated Currently steroid therapy and antibiotic have been added for treatment of underlying pulmonary issues Bentyl [id number] will be added Lomotil will be added as needed for diarrhea Patient will need follow-up with the GI service after discharge Thank you for allowing us to participate in the care of the patient we sign off at this time The impression and plan of care has been dictated as directed. Dr. Kirt Benson I performed a history and examination of this patient, discussed the same with the dictator. I agree with the dictator's note ,documented as a scribe. Any additional findings or plans will be noted.
[2020-08-28] MEDS: FLUCONAZOLE IN NACL,ISO-OSM 100 MG in SALINE 1 50ML.BAG IVPB SCH (16:25)
--- NOTE | 2020-08-28 17:48 | PN ---
PROGRESS NOTE DATE OF SERVICE: 08/28/2020 This 60-year-old woman with a past medical history of multiple medical issues was admitted with possible right lung abscess. Underlying malignancy needed to be ruled out. The patient underwent bronchoscopy and biopsy by Dr. Klein yesterday. The final biopsy reports are pending at this time. Patient is on broad-spectrum IV antibiotics. No chest pain. No palpitations. No fever. The sputum culture showed Mary albicans. PHYSICAL EXAMINATION: Alert and oriented x3. Pulse is 64, blood pressure 124/77, respiration 12, temperature 98.9, pulse ox 94% on room air. HEENT: Conjunctivae normal. NECK: No jugular venous distention. CARDIOVASCULAR SYSTEM: S1, S2 muffled. RESPIRATORY SYSTEM: Breath sounds diminished at the bases. A few scattered rhonchi on the right side. ABDOMEN: Soft, non-tender. NERVOUS SYSTEM: No focal deficit. LABS: WBC 13.3, hemoglobin 18.8. 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 ASSESSMENT: 1. Right lower lobe possible lung abscess with failure of outpatient treatment with possible sepsis, present on admission. 2. Rule out underlying lung cancer. 3. Status post bronchoscopy and lung biopsies. 4. Possible acute urinary tract infection, present on admission. 5. Mary albicans from the sputum culture. 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 7. Anemia, possibly chronic gastrointestinal bleed and blood-loss anemia. Rule out anemia secondary to malignancy or infection. 8. History of ulcerative colitis. 9. Hypertension. 10.History of degenerative joint disease. 11.History of migraine. 12.Lumbar degenerative joint disease. 13.History of multiple sclerosis. 14.History of anxiety, depression. 15.Remote history of nicotine dependence. 16.Increased white count. 17.Normocytic anemia. 18.Elevated alkaline phosphatase. 19.Mild protein-calorie malnutrition. 20.FULL CODE. RECOMMENDATIONS AND DISCUSSION: I recommend to continue current medications, continue with the monitoring, symptomatic treatment. Continue with the broad-spectrum IV antibiotics. Bronchoscopy has been done. Will await the biopsy report. Otherwise, I would also recommend a course of Diflucan for the Mary albicans. Other than that, a course of Valtrex will also be ordered. Patient is apparently getting some cold sores. Otherwise, overall prognosis is extremely guarded because of multiple complex medical issues. Repeat labs. Further recommendations to follow. Discussed with the patient at length. MMODL / IJN: [id number] /
[2020-08-28] MEDS: LACTATED RINGERS 1,000 ML IV SCH (20:48)
[2020-08-28] MEDS: valACYclovir HCL 1,000 MG TABLET PO SCH (20:49)
[2020-08-28] MEDS: ATORVASTATIN 80 MG TAB PO SCH (20:49)
[2020-08-29] MEDS: HYDROcodone/APAP 10-325MG 1 EACH TAB PO PRN ×4 (01:33→20:59)
[2020-08-29] MEDS: HYDROmorphone 0.5 MG/0.5 ML SYRINGE IVP PRN ×3 (04:49→22:17)
[2020-08-29] MEDS: PANTOPRAZOLE 40 MG TABLET PO SCH (06:26)
[2020-08-29 07:48] LABS: African American GFR (CKD) >90 (>60 ml/min/1.73 sqM); Non-African American GFR(CKD) >90 (>60 ml/min/1.73 sqM)
[2020-08-29] MEDS: BACLOFEN 10 MG TAB PO SCH ×3 (08:27→21:01)
[2020-08-29] MEDS: METOPROLOL TARTRATE 25 MG TAB PO SCH ×2 (08:27→20:59)
[2020-08-29] MEDS: HEPARIN SODIUM,PORCINE 5,000 UNIT/ML 1 ML VIAL SQ SCH ×2 (08:27→21:01)
[2020-08-29] MEDS: FLUCONAZOLE IN NACL,ISO-OSM 100 MG in SALINE 1 50ML.BAG IVPB SCH (08:27)
[2020-08-29] MEDS: VERAPAMIL SR 240 MG TABLET.ER PO SCH (08:27)
[2020-08-29] MEDS: predniSONE 10 MG TAB PO SCH (08:27)
[2020-08-29] MEDS: valACYclovir HCL 1,000 MG TABLET PO SCH ×2 (08:27→20:58)
[2020-08-29] MEDS: DICYCLOMINE 20 MG TAB PO SCH ×4 (08:28→21:00)
[2020-08-29] MEDS: PREGABALIN 50 MG CAP PO SCH ×2 (08:28→20:58)
[2020-08-29] MEDS: DULoxetine HCL 60 MG CAPSULE.DR PO SCH (08:28)
[2020-08-29] MEDS: DIPHENOX-ATROP 2.5-0.025 MG 1 EACH TAB PO PRN ×3 (08:28→22:18)
[2020-08-29] MEDS: NICOTINE 21MG/24HR PATCH TRANSDERM SCH (08:28)
[2020-08-29] MEDS: clonazePAM 1 MG TAB PO PRN ×2 (08:28→21:03)
[2020-08-29] MEDS: SYMBICORT 160-4.5 MCG INHALER INHALATION SCH ×2 (09:07→20:19)
--- NOTE | 2020-08-29 14:08 | P.PN ---
Subjective Progress Note Date: 08/29/20 Principal diagnosis: Altered mental status, right lung pulmonary mass This is a 60-year-old female patient who follows with Dr. Farris as her primary care provider. She has a history of multiple sclerosis, hypertension, hyperlipidemia, mild migraines, lumbar degenerative disc disease, fibromyalgia, ulcerative colitis, anxiety, COPD and chronic tobacco dependence. She was also seen by our group in June 2020 for abnormal CAT scan which revealed multiple pulmonary masslike infiltrates, multicentric primary malignancy or metastatic disease was being considered. She had a mass at the right pulmonary hilum extending into the anterior basal segment of the right lower lobe measuring 6.5 cm. She was to follow up with Dr. Ponce in our office but did not have an appointment scheduled yet. She also had developed a cough and congestion yesterday. She states her son came to the house and found her to have altered mental status, more so than usual, and brought her to the emergency room. She has not much recollection in this regard. Chest x-ray again shows masslike consolidation of the right lower lobe with pleural fluid and thickening that is worse than previous exam 07/02/2020. CAT scan of the abdomen and pelvis revealed probable empyema in the right lung base. Neoplasm not excluded. Interval development of a right pleural effusion. She is seen today in consultation on the regular medical floor. She is awake and alert. She is up ambulating in her room. She is maintaining O2 saturations in the 90s on room air. She's afebrile. Hemodynamically stable. White count 19.0. Hemoglobin 9.3. Sodium 145. Potassium 4.0. Creatinine 0.53. Urine culture pending. Drug screen negative. She was given fluid resuscitation. Initiated on vancomycin and ceftriaxone. The patient is seen today 06/24/2020 in follow-up on the regular medical floor. She is awake and alert in no acute distress. She denies any worsening shortness of breath, cough or congestion. Maintaining O2 saturations in the 90s on room air. She's afebrile. Blood and urine cultures reveal no growth. Creatinine 0.51. Pro-calcitonin 0.09. Follow-up CAT scan reveals large cavitating mass in the right middle lobe not significantly different than previous CT of 07/01/2020. This appearance is nonspecific and could be related to a lung abscess or necrotic tumor. Significant improvement in the patchy pulmonary areas of consolidation in the posterior lung longo compared to computed tomography scan of 07/01/2020 that suggested resolving pneumonia. There is clearing of the left bronchial adenopathy. On 08/26/2020 patient seen in follow-up on the pediatric unit. She is awake and alert, in no acute distress, she is on room air, with a pulse ox 97%, no signs of confusion, her mentation seems to have improved, no fever or chills, breathing seems to be comfortable, she denies any chest pain. Interventional radiology was consulted for possibility of pigtail chest tube however they felt that patient would be better served with a bronchoscopy and endobronchial biopsies and they felt that the pigtail could not be placed into the large cavitating mass in the right middle lobe. Pro-calcitonin was negative, no significant leukocytosis, today's labs have been reviewed, with blood cell count is 11.7, hemoglobin is 8.1, patient remains on Zosyn and vancomycin for empiric antibiotic coverage, she is on bronchodilators and IV steroids. Denies any hemoptysis. She was supposed to follow up with Dr. Ponce in the office following her last admission back in June however she states that she was scared and she did not follow-up in regards to right lung mass. On 08/28/2020 patient seen in follow-up in the pediatric unit, patient had a Bronchoscopy yesterday and had biopsies endobronchially and transbronchial of a right middle lobe, biopsy results are still pending, bronchial lavage cultures are pending, Gram stain showed no organisms. Patient remains on antibiotic coverage in the form of Zosyn and vancomycin, she has had no fever or chills. Procalcitonin was negative at 0.09. And the large cavitating mass in the right middle lobe is suspicious for primary lung malignancy, rather than pneumonia. We'll discontinue the antibiotics, patient has had no fever or chills, no chest pain, no hemoptysis, no significant cough, or congestion. On 08/29/2020 patient seen in follow-up in the pediatric unit, she is awake and alert, in no acute distress, no caput, chest pain, no shortness of breath, patient is on room air, vital signs stable, room air pulse ox is 94-97%, bronchial lavage cultures have shown Mary albicans, no other growth, bronchial brushings, brush tip cellblock of the right middle lobe was nondiagnostic. We stopped the patient's antibiotics yesterday. 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, patient was started on Valtrex by primary care service, and Diflucan added for evidence of Mary in the bronchial wash Objective - Vital Signs Vital signs: Vital Signs Temp 99.1 F 08/29/20 12:23 Pulse 68 08/29/20 12:23 Resp 14 08/29/20 12:23 BP 120/76 08/29/20 12:23 Pulse Ox 94 L 08/29/20 12:23 Intake & Output 08/28/20 08/29/20 08/29/20 18:59 06:59 18:59 Intake Total 1400 400 Balance 1400 400 Intake: Oral 1400 400 Other: Voiding Method Toilet # Voids 2 # Bowel Movements 1 - Exam GENERAL EXAM: Alert, very pleasant 60-year-old white female, with room air pulse ox of 99% comfortable in no apparent distress. HEAD: Normocephalic/atraumatic. EYES: Normal reaction of pupils, equal size. Conjunctiva pink, sclera white. NOSE: Clear with pink turbinates. THROAT: No erythema or exudates. NECK: No masses, no JVD, no thyroid enlargement, no adenopathy. CHEST: No chest wall deformity. Symmetrical expansion. LUNGS: Equal air entry with no crackles, wheeze, rhonchi or dullness. CVS: Regular rate and rhythm, normal S1 and S2, no gallops, no murmurs, no rubs ABDOMEN: Soft, nontender. No hepatosplenomegaly, normal bowel sounds, no guarding or rigidity. EXTREMITIES: No clubbing, no edema, no cyanosis, 2+ pulses and upper and lower extremities. MUSCULOSKELETAL: Muscle strength and tone normal. SPINE: No scoliosis or deformity SKIN: No rashes CENTRAL NERVOUS SYSTEM: Alert and oriented -3. No focal deficits, tone is normal in all 4 extremities. PSYCHIATRIC: Alert and oriented -3. Appropriate affect. Intact judgment and insight. - Labs CBC & Chem 7: 08/28/20 08:11 08/29/20 07:16 Labs: Abnormal Lab Results - Last 24 Hours (Table) 08/27/20 08/28/20 Range/Units 11:38 13:50 Urine Opiates Screen Detected H (NotDetected) Viral Test See Below H Microbiology - Last 24 Hours (Table) 08/27/20 10:15 Gram Stain - Final Sputum Sputum Culture - Final Mary albicans 08/27/20 11:38 Gram Stain - Final Bronchoalviolar Lavage - Right Bronchial Washings Culture - Final Mary albicans 08/23/20 20:46 Blood Culture - Preliminary Blood No Growth after 120 hours 08/27/20 11:38 Acid Fast Bacilli Smear - Final Bronchoalviolar Lavage - Right Acid Fast Bacilli Culture - Preliminary Assessment and Plan Plan: Assessment: 1 Altered mental status of unclear etiology with episodes of unresponsiveness, computed tomography scan of the brain revealed no acute intracranial process, EEG showed no evidence of seizures 2 Masslike consolidation of the right lower lobe with pleural fluid and thickening, worse compared to previous on 07/02/2020. Possible empyema versus cancer, status post bronchoscopy with endobronchial and transbronchial biopsies of the right middle lobe, which were nondiagnostic, bronchial lavage cultures showed Mary albicans, and HSV-1 in the viral cultures 3 Known history of multiple pulmonary masslike infiltrates from 07/01/2020. Multicentric primary malignancy or metastatic disease is considered. Bilateral bronchial adenopathy. No follow-up in the outpatient setting. 4 Chronic tobacco dependence 5 Chronic obstructive pulmonary disease 6 Multiple sclerosis. 7 Ulcerative colitis with diarrhea 8 Hypertension 9 Hyperlipidemia 10 Anxiety 11 Fibromyalgia 12 History of migraines Plan: Patient is doing well, no acute events overnight, biopsy the right middle lobe was nondiagnostic, from pulmonary perspective patient can be considered for discharge home today she can complete the 5-7 course of Valtrex for evidence of HSV-1 and the viral bronchial lavage, patient can complete Diflucan. She can be considered for discharge home today, and she will be seen in follow-up by Dr. Klein in the office next week, patient will need a repeat bronchoscopy with endobronchial biopsies of the right middle and right lower lobe, she will likely require navigational bronchoscopy, and general anesthesia. This was discussed with the patient and she is agreeable to follow-up I performed a history & physical examination of the patient and discussed their management with my nurse practitioner, Sarah Rizzo. I reviewed the nurse practitioner's note and agree with the documented findings and plan of care. Lung sounds are positive for mentioned breath sounds. The findings and the impression was discussed with the patient. I attest to the documentation by the nurse practitioner. Time with Patient: Less than 30
--- NOTE | 2020-08-29 18:12 | PN ---
PROGRESS NOTE DATE OF SERVICE: 08/29/2020 This 60-year-old woman was admitted with right lower lobe possible lung abscess, possible walled off lesion. The patient had a bronchoscopy yesterday by Dr. Klein. There was some evidence of HSV-1 in the bronchial lavage. The biopsy was nondiagnostic. The patient apparently had almost a walled off lesion in the right lower lobe. Patient being closely monitored. Patient has received a course of IV antibiotics while in the hospital. The other cultures are negative. Persistent Mary was noted. Past medical history reviewed. REVIEW OF SYSTEMS: CARDIOVASCULAR SYSTEM: No angina. No chest pain. RESPIRATORY: As mentioned earlier. GI mentioned earlier. : No dysuria. NERVOUS SYSTEM: No numbness or weakness. CURRENT MEDICATIONS: Reviewed and include: 1. Tylenol. 2. Boulevard. 3. Ventolin. 4. Lipitor. 5. Lioresal. 6. Symbicort. 7. Lomotil. 8. Vitamin D2. 9. Heparin. 10.Lopressor. 11.Protonix. 12.Other medication doses are reviewed. PHYSICAL EXAMINATION: Alert and oriented times three. Pulse 68, blood pressure 127/62 respirations 14, temperature 99.1, pulse ox 94% on room air. HEENT: Conjunctivae normal. Oral mucosa moist. NECK is no jugular venous distention. No carotid bruit. No lymph node enlargement. Cardiovascular systems: S1, S2 muffled. Respirations: Breath sounds diminished in the bases. A few scattered rhonchi. ABDOMEN: Soft, nontender. LEGS are no edema. No swelling. NERVOUS SYSTEM: No focal deficits. LAB: Labs are WBC 13.2, hemoglobin is 8.8, and viral testing C difficile negative. ASSESSMENT: 1. Right lower lobe possible lung abscess walled off with failure of outpatient treatment with possible sepsis present on admission. 2. Rule out underlying lung cancer. 3. Mary albicans from the cultures. 4. Status post bronchoscopy and negative lung biopsies. 5. Possible acute urinary tract infection present on admission. 6. Herpes Simplex type 1 from the viral cultures. 7. Anemia possibly chronic gastrointestinal bleed and blood-loss anemia. Rule out anemia secondary to malignancy or infection. 8. History of ulcerative colitis. 9. Hypertension. 10.History of degenerative joint disease. 11.History of migraine. 12.Lumbar degenerative joint disease. 13.History of multiple sclerosis. 14.Anxiety, depression. 15.Remote history of nicotine dependence. 16.Increased WBC. 17.Normocytic anemia. 18.Elevated alkaline phosphatase. 19.Mild protein calorie malnutrition. 20.FULL CODE. RECOMMENDATIONS AND DISCUSSION: I recommend to continue current medications. Continue management and symptomatic treatment. Otherwise, at this time, the patient is on Diflucan and as well as Valtrex and tapering dose of prednisone. The white count is still elevated. I recommend infectious disease evaluation for continued outpatient followup. Otherwise, prognosis extremely guarded because of multiple complex medical issues. Please see orders. Further recommendations to follow. MMODL / IJN: [id number] /
[2020-08-29] MEDS: ATORVASTATIN 80 MG TAB PO SCH (20:59)
[2020-08-29] MEDS: AMOXIC-POT CLAV 875-125MG 1 EACH TAB PO SCH (21:01)
[2020-08-29] MEDS: LACTATED RINGERS 1,000 ML IV SCH (21:58)
[2020-08-30 00:37] VITALS: RESP 18
[2020-08-30] MEDS: HYDROcodone/APAP 10-325MG 1 EACH TAB PO PRN ×2 (04:18→11:14)
[2020-08-30] MEDS: clonazePAM 1 MG TAB PO PRN (04:22)
[2020-08-30] MEDS: PANTOPRAZOLE 40 MG TABLET PO SCH (06:25)
[2020-08-30] MEDS: HYDROmorphone 0.5 MG/0.5 ML SYRINGE IVP PRN (06:29)
[2020-08-30] MEDS: AMOXIC-POT CLAV 875-125MG 1 EACH TAB PO SCH (07:48)
[2020-08-30] MEDS: BACLOFEN 10 MG TAB PO SCH (07:49)
[2020-08-30] MEDS: DIPHENOX-ATROP 2.5-0.025 MG 1 EACH TAB PO PRN (07:49)
[2020-08-30] MEDS: DICYCLOMINE 20 MG TAB PO SCH ×2 (07:50→12:20)
[2020-08-30] MEDS: PREGABALIN 50 MG CAP PO SCH (07:50)
[2020-08-30] MEDS: valACYclovir HCL 1,000 MG TABLET PO SCH (07:50)
[2020-08-30] MEDS: FLUCONAZOLE IN NACL,ISO-OSM 100 MG in SALINE 1 50ML.BAG IVPB SCH (07:50)
[2020-08-30] MEDS: predniSONE 10 MG TAB PO SCH (07:50)
[2020-08-30] MEDS: METOPROLOL TARTRATE 25 MG TAB PO SCH (07:50)
[2020-08-30] MEDS: VERAPAMIL SR 240 MG TABLET.ER PO SCH (07:50)
[2020-08-30] MEDS: NICOTINE 21MG/24HR PATCH TRANSDERM SCH (07:50)
[2020-08-30] MEDS: DULoxetine HCL 60 MG CAPSULE.DR PO SCH (07:50)
[2020-08-30] MEDS: SYMBICORT 160-4.5 MCG INHALER INHALATION SCH (07:51)
[2020-08-30] MEDS: HEPARIN SODIUM,PORCINE 5,000 UNIT/ML 1 ML VIAL SQ SCH (07:51)
--- NOTE | 2020-08-30 08:33 | P.CONS ---
History of Present Illness - Reason for Consult Consult date: 08/29/20 Empyema and antibiotic recommendation Requesting physician: Jing Andersen - Chief Complaint Shortness of breathAbdominal pain x days - History of Present Illness Patient is 60-year-old female presented to the ER at [facility] about a week ago for evaluation of abdominal pain and diarrhea, confusion with the symptoms the patient was evaluated by the physician on the patient was afebrile and has no fever during this hospital stay patient did have elevated white count admission of 19,000 that came down to 11.7 however is slowly rising up and was 13.7 yesterday, the patient did have a CT of abdominal pelvis which did shows probable empyema at the right lung base of pleasant not excluded and small right-sided pleural effusion subsequent the patient did have a CT of the chest which it shows large irritated mass in the right middle lobe partially significantly different than yesterday and was also present on old computed tomography scan of 07/01/2020, patient has been evaluated by pulmonary medicine and the patient did have a bronchoscopy done and is status post bronchial washes and endobronchial/transbronchial biopsies, patient was IV a ntibiotic therapy bronchoscopy culture now showing Mary. She was started on Diflucan , infectious disease was consulted this evening for further recommendation regarding the need for antibiotic as Was for possible empyema, patient is semi-evaluation this evening denies having any fever or any chills, patient overall is feeling better, the patient is breathing more comfortably, the patient denies having any chest pain she did have some cough but no sniffing respiratory production or hemoptysis and no nausea no vomiting and abdominal pain no diarrhea Review of Systems Positive point has been mentioned in the HPI rest of the systems are negative Past Medical History Past Medical History: Hyperlipidemia, Hypertension, Musculoskeletal Disorder Additional Past Medical History / Comment(s): migraines, ulcerative colitis, lumbar degenerative disc, fibromyalgia, MS History of Any Multi-Drug Resistant Organisms: None Reported Past Surgical History: Tubal Ligation Additional Past Surgical History / Comment(s): fx femurs, facial surgery, deviated septum, AJITH and RFA to neck and back Past Anesthesia/Blood Transfusion Reactions: No Reported Reaction Past Psychological History: Anxiety, Depression Smoking Status: Former smoker Past Alcohol Use History: Rare Past Drug Use History: None Reported - Past Family History Sister(s) Family Medical History: Cancer Additional Family Medical History / Comment(s): breast Medications and Allergies Home Medications Medication Instructions Recorded Confirmed Type Baclofen [Lioresal] 20 mg PO TID 12/10/14 08/23/20 History Buta/APAP/Caf/Cod 55-597-36-30 1 tab PO TID PRN 12/10/14 08/23/20 History [Fioricet w/Cod 37-206-13-30MG] Diphenox-Atrop 2.5-0.025 mg 1 - 2 tab PO QID PRN 12/10/14 08/23/20 History [Lomotil] Pregabalin [Lyrica] 150 mg PO BID 12/10/14 08/23/20 History Verapamil HCl [Verapamil ER] 240 mg PO DAILY 12/10/14 08/23/20 History clonazePAM [Clonazepam] 1 mg PO BID PRN 12/10/14 08/23/20 History traMADol HCl [Ultram] 50 mg PO TID PRN 12/10/14 08/23/20 History HYDROcodone/APAP 10-325MG [[place] 1 tab PO QID 09/22/15 08/23/20 History 10-325] Albuterol Inhaler [Ventolin Hfa 2 puff INHALATION RT-Q4H PRN 07/01/20 08/23/20 History Inhaler] Albuterol Nebulized [Ventolin 2.5 mg INHALATION RT-TID PRN 07/01/20 08/23/20 History Nebulized] DULoxetine HCL [Cymbalta] 60 mg PO DAILY 07/01/20 08/23/20 History Ergocalciferol (Vitamin D2) 50,000 unit PO KELLEY 07/01/20 08/23/20 History [Drisdol] Metoprolol Tartrate 25 mg PO BID 07/01/20 08/23/20 History modafiniL [Provigil] 200 mg PO BID PRN 07/01/20 08/23/20 History Budesonide-Formot 160-4.5 Mcg 2 puff INHALATION RT-BID #1 puff 07/03/20 08/23/20 Rx [Symbicort 160-4.5 Mcg Inhaler] Atorvastatin Calcium [Lipitor] 80 mg PO HS 08/23/20 08/23/20 History Ipratropium-Albuterol Nebulize 3 ml INHALATION RT-TID PRN 08/23/20 08/23/20 History [Duoneb 0.5 mg-3 mg/3 ml Soln] Nicotine 21Mg/24Hr Patch [Habitrol] 1 patch TRANSDERM DAILY 08/23/20 08/23/20 History Allergies Allergy/AdvReac Type Severity Reaction Status Date / Time No Known Allergies Allergy Verified 08/23/20 21:05 Physical Exam Vitals: Vital Signs Temp Pulse Resp BP Pulse Ox 08/29/20 12:23 99.1 F 68 14 120/76 94 L 08/29/20 08:14 98.6 F 70 12 138/86 97 08/28/20 23:00 98.6 F 53 L 18 154/83 95 08/28/20 20:00 98.1 F 64 18 138/80 94 L 08/28/20 16:32 98.2 F 57 L 18 142/83 95 Intake and Output 08/29/20 08/29/20 08/29/20 06:59 14:59 22:59 Intake Total 580 400 Balance 580 400 Intake: Oral 580 400 Other: Voiding Method Toilet GENERAL DESCRIPTION: Middle-aged female lying in bed, no distress. No tachypnea or accessory muscle of respiration use. HEENT: Shows Pallor , no scleral icterus. Oral mucous membrane is dry. No pharyngeal erythema or thrush NECK: Trachea central, no thyromegaly. LUNGS: Unlabored breathing. Decreased intensity of breath sounds. No wheeze or crackle. HEART: S1, S2, regular rate and rhythm. No loud murmur ABDOMEN: Soft, no tenderness , guarding or rigidity, no organomegaly EXTREMITIES: No edema of feet. SKIN: No rash, no masses palpable. NEUROLOGICAL: The patient is awake, alert, oriented x3, mood and affect normal. Results CBC & Chem 7: 08/28/20 08:11 08/29/20 07:16 Labs: Microbiology - Last 24 Hours (Table) 08/27/20 10:15 Gram Stain - Final Sputum Sputum Culture - Final Mary albicans 08/27/20 11:38 Gram Stain - Final Bronchoalviolar Lavage - Right Bronchial Washings Culture - Final Mary albicans 08/23/20 20:46 Blood Culture - Preliminary Blood No Growth after 120 hours 08/27/20 11:38 Acid Fast Bacilli Smear - Final Bronchoalviolar Lavage - Right Acid Fast Bacilli Culture - Preliminary Assessment and Plan Assessment: 1- patient is a 60 year female presented to the hospital with weakness confusion and some shortness of breath in this patient also have some bone pain with a history of ulcerative colitis patient had did have severe abdominal pelvis which was suspicious for a right-sided empyema CT of the chest did show last cavitating mass in the right middle lobe that has been biopsied with a vent support currently pending however cultures have been showing mostly Mary and no resistant pathogen, patient currently does not look toxic and has no fever during this admission with concern for possible malignancy and a possible comp onent of postobstructive pneumonia not entirely excluded (1) Pneumonia Current Visit: Yes Status: Acute Code(s): J18.9 - PNEUMONIA, UNSPECIFIED ORGANISM SNOMED Code(s): 903693391 (2) Leukocytosis Current Visit: Yes Status: Acute Code(s): D72.829 - ELEVATED WHITE BLOOD CELL COUNT, UNSPECIFIED SNOMED Code(s): 310315970 Plan: 1- we will check CRP and pro calcitonin level 2-at Augmentin 875 mg one twice a day Plan of care were discussed in detail with the admitting physician We will follow on clinical condition and cultures to further adjust medication if needed Thank you for this consultation will follow this patient with you Time with Patient: Greater than 30
[2020-08-30 09:47] LABS: African American GFR (CKD) >90 (>60 ml/min/1.73 sqM); Non-African American GFR(CKD) >90 (>60 ml/min/1.73 sqM)
[2020-08-30 10:22] VITALS: BP 166/88; PULSE 62; TEMP 98.3
--- NOTE | 2020-08-30 12:52 | P.PN ---
Subjective Progress Note Date: 08/30/20 Principal diagnosis: Altered mental status, right lung pulmonary mass This is a 60-year-old female patient who follows with Dr. Farris as her primary care provider. She has a history of multiple sclerosis, hypertension, hyperlipidemia, mild migraines, lumbar degenerative disc disease, fibromyalgia, ulcerative colitis, anxiety, COPD and chronic tobacco dependence. She was also seen by our group in June 2020 for abnormal CAT scan which revealed multiple pulmonary masslike infiltrates, multicentric primary malignancy or metastatic disease was being considered. She had a mass at the right pulmonary hilum extending into the anterior basal segment of the right lower lobe measuring 6.5 cm. She was to follow up with Dr. Ponce in our office but did not have an appointment scheduled yet. She also had developed a cough and congestion yesterday. She states her son came to the house and found her to have altered mental status, more so than usual, and brought her to the emergency room. She has not much recollection in this regard. Chest x-ray again shows masslike consolidation of the right lower lobe with pleural fluid and thickening that is worse than previous exam 07/02/2020. CAT scan of the abdomen and pelvis revealed probable empyema in the right lung base. Neoplasm not excluded. Interval development of a right pleural effusion. She is seen today in consultation on the regular medical floor. She is awake and alert. She is up ambulating in her room. She is maintaining O2 saturations in the 90s on room air. She's afebrile. Hemodynamically stable. White count 19.0. Hemoglobin 9.3. Sodium 145. Potassium 4.0. Creatinine 0.53. Urine culture pending. Drug screen negative. She was given fluid resuscitation. Initiated on vancomycin and ceftriaxone. The patient is seen today 06/24/2020 in follow-up on the regular medical floor. She is awake and alert in no acute distress. She denies any worsening shortness of breath, cough or congestion. Maintaining O2 saturations in the 90s on room air. She's afebrile. Blood and urine cultures reveal no growth. Creatinine 0.51. Pro-calcitonin 0.09. Follow-up CAT scan reveals large cavitating mass in the right middle lobe not significantly different than previous CT of 07/01/2020. This appearance is nonspecific and could be related to a lung abscess or necrotic tumor. Significant improvement in the patchy pulmonary areas of consolidation in the posterior lung longo compared to computed tomography scan of 07/01/2020 that suggested resolving pneumonia. There is clearing of the left bronchial adenopathy. On 08/26/2020 patient seen in follow-up on the pediatric unit. She is awake and alert, in no acute distress, she is on room air, with a pulse ox 97%, no signs of confusion, her mentation seems to have improved, no fever or chills, breathing seems to be comfortable, she denies any chest pain. Interventional radiology was consulted for possibility of pigtail chest tube however they felt that patient would be better served with a bronchoscopy and endobronchial biopsies and they felt that the pigtail could not be placed into the large cavitating mass in the right middle lobe. Pro-calcitonin was negative, no significant leukocytosis, today's labs have been reviewed, with blood cell count is 11.7, hemoglobin is 8.1, patient remains on Zosyn and vancomycin for empiric antibiotic coverage, she is on bronchodilators and IV steroids. Denies any hemoptysis. She was supposed to follow up with Dr. Ponce in the office following her last admission back in June however she states that she was scared and she did not follow-up in regards to right lung mass. On 08/28/2020 patient seen in follow-up in the pediatric unit, patient had a Bronchoscopy yesterday and had biopsies endobronchially and transbronchial of a right middle lobe, biopsy results are still pending, bronchial lavage cultures are pending, Gram stain showed no organisms. Patient remains on antibiotic coverage in the form of Zosyn and vancomycin, she has had no fever or chills. Procalcitonin was negative at 0.09. And the large cavitating mass in the right middle lobe is suspicious for primary lung malignancy, rather than pneumonia. We'll discontinue the antibiotics, patient has had no fever or chills, no chest pain, no hemoptysis, no significant cough, or congestion. On 08/29/2020 patient seen in follow-up in the pediatric unit, she is awake and alert, in no acute distress, no caput, chest pain, no shortness of breath, patient is on room air, vital signs stable, room air pulse ox is 94-97%, bronchial lavage cultures have shown Mary albicans, no other growth, bronchial brushings, brush tip cellblock of the right middle lobe was nondiagnostic. We stopped the patient's antibiotics yesterday. 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, patient was started on Valtrex by primary care service, and Diflucan added for evidence of Mary in the bronchial wash On 08/30/2020 patient seen in follow-up in the pediatric unit, she is awake and alert, oriented 3, no acute distress, denies any difficulty breathing, sounds are clear, she has had no fever or chills, she was seen by ID service in consultation, she was started on oral Augmentin, bronchial lavage cultures remain negative, bile culture showed HSV 1 for which the patient started on Valtrex, and there was Mary albicans in the bronchial lavage, and patient is on oral Diflucan, there has been no acute events overnight, CRP is down to 19 on today's labs, no CBC today, clinically very stable, she is tolerating ambulation, room air pulse ox 96%, no fever or chills, vital signs stable Objective - Vital Signs Vital signs: Vital Signs Temp 98.3 F 08/30/20 07:00 Pulse 62 08/30/20 07:00 Resp 18 08/29/20 23:00 BP 166/88 08/30/20 07:00 Pulse Ox 96 08/30/20 07:00 Intake & Output 08/29/20 08/30/20 08/30/20 18:59 06:59 18:59 Intake Total 400 Balance 400 Intake: Oral 400 Other: Voiding Method Toilet Toilet # Voids 4 2 # Bowel Movements 4 - Exam GENERAL EXAM: Alert, very pleasant 60-year-old white female, with room air pulse ox of 99% comfortable in no apparent distress. HEAD: Normocephalic/atraumatic. EYES: Normal reaction of pupils, equal size. Conjunctiva pink, sclera white. NOSE: Clear with pink turbinates. THROAT: No erythema or exudates. NECK: No masses, no JVD, no thyroid enlargement, no adenopathy. CHEST: No chest wall deformity. Symmetrical expansion. LUNGS: Equal air entry with no crackles, wheeze, rhonchi or dullness. CVS: Regular rate and rhythm, normal S1 and S2, no gallops, no murmurs, no rubs ABDOMEN: Soft, nontender. No hepatosplenomegaly, normal bowel sounds, no guarding or rigidity. EXTREMITIES: No clubbing, no edema, no cyanosis, 2+ pulses and upper and lower extremities. MUSCULOSKELETAL: Muscle strength and tone normal. SPINE: No scoliosis or deformity SKIN: No rashes CENTRAL NERVOUS SYSTEM: Alert and oriented -3. No focal deficits, tone is normal in all 4 extremities. PSYCHIATRIC: Alert and oriented -3. Appropriate affect. Intact judgment and insight. - Labs CBC & Chem 7: 08/28/20 08:11 08/30/20 08:57 Labs: Abnormal Lab Results - Last 24 Hours (Table) 08/30/20 Range/Units 08:57 C-Reactive Protein 19.0 H (<10.0) mg/L Microbiology - Last 24 Hours (Table) 08/23/20 20:46 Blood Culture - Final Blood No Growth after 144 hours 08/27/20 10:15 Gram Stain - Final Sputum Sputum Culture - Final Mary albicans 08/27/20 11:38 Gram Stain - Final Bronchoalviolar Lavage - Right Bronchial Washings Culture - Final Mary albicans Assessment and Plan Plan: Assessment: 1 Altered mental status of unclear etiology with episodes of unresponsiveness, computed tomography scan of the brain revealed no acute intracranial process, EEG showed no evidence of seizures 2 Masslike consolidation of the right lower lobe with pleural fluid and thickening, worse compared to previous on 07/02/2020. Possible empyema versus cancer, status post bronchoscopy with endobronchial and transbronchial biopsies of the right middle lobe, which were nondiagnostic, bronchial lavage cultures showed Mary albicans, and HSV-1 in the viral cultures 3 Known history of multiple pulmonary masslike infiltrates from 07/01/2020. Multicentric primary malignancy or metastatic disease is considered. Bilateral bronchial adenopathy. No follow-up in the outpatient setting. 4 Chronic tobacco dependence 5 Chronic obstructive pulmonary disease 6 Multiple sclerosis. 7 Ulcerative colitis with diarrhea 8 Hypertension 9 Hyperlipidemia 10 Anxiety 11 Fibromyalgia 12 History of migraines Plan: Patient has remained stable in last 24 hours, she was started on Augmentin, she's had no fever or chills, she continues on oral Diflucan and Valtrex, she is on room air, no acute events overnight, she is being discharged home today, she will need outpatient follow-up with Dr. Horn in the office next week, and we will discuss outpatient navigational bronchoscopy under general anesthesia for sampling and biopsy of the right middle right lower lobe I performed a history & physical examination of the patient and discussed their management with my nurse practitioner, Sarah Rizzo. I reviewed the nurse practitioner's note and agree with the documented findings and plan of care. Lung sounds are positive for mentioned breath sounds. The findings and the impression was discussed with the patient. I attest to the documentation by the nurse practitioner. Time with Patient: Less than 30
[2020-08-30 13:06] VITALS: BMI 19.1
--- NOTE | 2020-08-30 14:10 | PN ---
PROGRESS NOTE DATE OF SERVICE: 08/30/2020 REASON FOR FOLLOWUP: Pneumonia. INTERVAL HISTORY: The patient is currently afebrile. Patient is breathing more comfortably. Denies any chest pain or shortness of breath. Minimal cough. No nausea. No vomiting. No abdominal pain. No diarrhea. Wants to go home and she does have a 3 pm appointment with pain specialist. PHYSICAL EXAMINATION: Blood pressure 152/92 with a pulse of 72, temperature 98.3. She is 96% on room air. General description is a middle-aged female up in the bed in no distress. Respiratory system: Unlabored breathing, decreased intense breath sounds. No wheeze. HEART: S1, S2. Regular rate and rhythm. ABDOMEN: Soft, no tenderness. LABS: CRP is 19. currently pending. Bronchoscopy culture with Mary. DIAGNOSTIC IMPRESSION AND PLAN: Patient with right lower lobe cavitating pneumonia status post bronchoscopy. Repeat blood culture in outpatient setting. Culture has been only Mary, concern for possible post surgery component. Augmentin prescription will be sent and close outpatient followup. MMODL / IJN: [id number] /
--- NOTE | 2020-08-31 06:33 | DS ---
DISCHARGE SUMMARY DATE OF SERVICE: 08/30/2020 FINAL DIAGNOSIS: 1. Bilateral lower lobe possibly lung abscess, possibly cavitated pneumonia walled off with failure of outpatient treatment with possible sepsis present on admission. 2. Rule out underlying lung cancer. 3. Mary albicans from the cultures. 4. Status post bronchoscopy, negative lung biopsies. 5. Possible acute urinary tract infection present on admission. 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 7. Anemia possibly chronic gastrointestinal bleed and blood-loss anemia. Rule out anemia secondary to malignancy infection. 8. Unresponsive syncope, present on admission of undetermined etiology. 9. History of ulcerative colitis. 10.Hypertension. 11.History of degenerative joint disease. 12.History of migraine. 13.History of multiple sclerosis. 14.History of anxiety and depression. 15.Remote history of nicotine dependence. 16.Increased WBC. 17.Normocytic anemia. 18.Elevated alkaline phosphatase. 19.Mild protein calorie malnutrition. 20.FULL CODE. DISCHARGE DISPOSITION: The patient will be discharged in stable condition with guarded prognosis. Total time taken 35 minutes. HISTORY OF PRESENT ILLNESS: This is a 60-year-old woman with a past medical history of multiple medical problems admitted with possible lung abscess or cavitary pneumonia with failure of outpatient treatment. Patient was given IV antibiotics. Patient also had episodes of unresponsiveness. Evaluated by Neurology who recommended outpatient followup. Patient also seen by Dr. Schwartz in the outpatient setting. Otherwise, as far as the lung abnormality is concerned, Cardiothoracic surgery was consulted and bronchoscopy did not show any acute abnormality. The biopsies are negative at this time and cultures showing Mary albicans. Diflucan was initiated. Patient also had HSV 1 infection and Valtrex was also given. PHYSICAL EXAM: On exam, vitals are stable. Cardiovascular S1 and S2. Abdomen soft. Nervous system normal. DISCHARGE INSTRUCTIONS: Patient improved significantly. The patient discharged home in stable condition with guarded prognosis. Diet is cardiac. Activity is limited until followup. Follow up Dr. Ronny Farris in 2-3 days, follow up with Dr. Klein as advised. Follow up with Gastroenterology. Follow up with Dr. Lanier as advised. Follow up with Infectious Disease. MEDICATIONS: 1. Klonopin 1 mg b.i.d. p.r.n. 2. Cymbalta 60 mg daily. 3. Vitamin D2 50,000 p.o. Wednesday. 4. DuoNeb q.i.d. and p.r.n. 5. Fioricet 2 mg t.i.d. p.r.n. 6. Habitrol 14 daily. 7. Lioresal 20 mg p.o. t.i.d. 8. Lipitor 80 mg q.h.s. 9. Lomotil 1 tablet q.6 p.r.n. 10.Lyrica 150 mg p.o. b.i.d. 11.Metoprolol 25 mg p.o. b.i.d. 12.[place] 1 tablet q.i.d. p.r.n. 13.Provigil 200 mg p.o. t.i.d. 14.Ultram 50 mg t.i.d. p.r.n. 15.Ventolin p.r.n. 16.Albuterol p.r.n. 17.Verapamil ER 240 mg p.o. daily. 18.Augmentin 875 mg p.o. b.i.d. for 12 days per Infectious Disease. 19.Bentyl 20 mg q.i.d. 20.Diflucan 100 mg daily for 10 days. 21.Prednisone taper 30 mg for 5 days, 20 mg for 10 days and 1 mg for 10 days. 22.CBC, BMP in the outpatient setting. 23.Protonix 40 mg daily. 24.Symbicort 2 puffs b.i.d. 25.Tylenol p.r.n. 26.Valtrex 1000 mg p.o. b.i.d. for 5 days. MMODL / IJN: [id number] /
--- NOTE | 2020-09-02 11:55 | CDI ---
Documentation Clarification Form Date: 09/02/20 From: Qiana Barros Phone: If you have a question about this query, please contact Bing Ferrari, Donor Technician at [phone] between 8am and 5pm. Admit Date: 08/25/20 Discharge Date: 08/30/20 Patient Name: MYLA LANDERS Visit Number: [id number] ATTENTION: The Clinical Documentation Specialists (CDI) and [facility] Coding Staff appreciate your assistance in clarifying documentation. Please respond to the clarification below the line at the bottom and electronically sign. The CDI & [facility] Coding staff will review the response and follow-up if needed. Please note: Queries are made part of the Legal Health Record. If you have any questions, please contact the author of this message via ITS. Dear Dr. Jing Andersen, Your patient has the documented diagnosis of possible lung abscess, possibly cavitated pneumonia and possible sepsis in your H&P from 08/25 and DS from 08/30. A relationship between diagnoses cannot be assumed unless documented as such by the attending physician. In order to capture the severity of condition; please document the relationship, if any, between these diagnoses. 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 Please clarify and document your clinical opinion in the progress notes and discharge summary if any relationship (due to, caused by, secondary to) exists between these two diagnoses. Please include clinical findings supporting your diagnosis. Pneumonia due to HSV 1 Pneumonia due to Candidia Pneumonia due to HSV 1 & Candidia Other explanation of clinical findings (please specify) Unable to determine (no explanation for clinical findings) Unable to determine MTDD
== END 2020-08-30 13:15 | disposition home or self-care (01) | DRG 871 ==
LOC: EC 20:08 → 4SSUR 22:54 → OBSVTOIN 08-25 10:00 → 6PED 08-26 13:40
PROVIDERS: ADMIT Internal Medicine; ATTEND Internal Medicine
PROC: 0BD58ZX Extraction of Right Middle Lobe Bronchus, Via Natural or Artificial Opening Endoscopic, Diagnostic (ICD-10-PCS; principal; 2020-08-27 08:00)
PROC: 0BDF8ZX Extraction of Right Lower Lung Lobe, Via Natural or Artificial Opening Endoscopic, Diagnostic (ICD-10-PCS; principal; 2020-08-27 08:00)
PROC: 0BB58ZX Excision of Right Middle Lobe Bronchus, Via Natural or Artificial Opening Endoscopic, Diagnostic (ICD-10-PCS; principal; 2020-08-27 08:00)
PROC: 0BDC8ZX Extraction of Right Upper Lung Lobe, Via Natural or Artificial Opening Endoscopic, Diagnostic (ICD-10-PCS; principal; 2020-08-27 08:00)
PROC: 0B9D8ZX Drainage of Right Middle Lung Lobe, Via Natural or Artificial Opening Endoscopic, Diagnostic (ICD-10-PCS; principal; 2020-08-27 08:00)
DX: A41.9 Sepsis, unspecified organism (principal); J85.1 Abscess of lung with pneumonia; G93.41 Metabolic encephalopathy; E44.1 Mild protein-calorie malnutrition; J45.901 Unspecified asthma with (acute) exacerbation; K51.90 Ulcerative colitis, unspecified, without complications; J44.0 Chronic obstructive pulmonary disease with (acute) lower respiratory infection; J44.1 Chronic obstructive pulmonary disease with (acute) exacerbation; Z68.1 Body mass index [BMI] 19.9 or less, adult; N39.0 Urinary tract infection, site not specified; J90 Pleural effusion, not elsewhere classified; B37.9 Candidiasis, unspecified; D63.8 Anemia in other chronic diseases classified elsewhere; I11.9 Hypertensive heart disease without heart failure; G35 Multiple sclerosis; B00.9 Herpesviral infection, unspecified; R40.2362 Coma scale, best motor response, obeys commands, at arrival to emergency department; R40.2142 Coma scale, eyes open, spontaneous, at arrival to emergency department; R40.2252 Coma scale, best verbal response, oriented, at arrival to emergency department; E78.5 Hyperlipidemia, unspecified; M79.7 Fibromyalgia; G43.909 Migraine, unspecified, not intractable, without status migrainosus; F32.9 Major depressive disorder, single episode, unspecified; G89.29 Other chronic pain; M54.2 Cervicalgia; M51.36 Other intervertebral disc degeneration, lumbar region; M47.816 Spondylosis without myelopathy or radiculopathy, lumbar region; F41.9 Anxiety disorder, unspecified; R74.8 Abnormal levels of other serum enzymes; M19.90 Unspecified osteoarthritis, unspecified site; Z79.51 Long term (current) use of inhaled steroids; Z79.899 Other long term (current) drug therapy; Z87.891 Personal history of nicotine dependence; Z71.6 Tobacco abuse counseling; Z71.3 Dietary counseling and surveillance; Z98.51 Tubal ligation status; Z87.39 Personal history of other diseases of the musculoskeletal system and connective tissue; Z87.2 Personal history of diseases of the skin and subcutaneous tissue; Z87.09 Personal history of other diseases of the respiratory system; Z80.3 Family history of malignant neoplasm of breast
CPT/HCPCS: 31623; 31624; 31625; 36415; 70450; 71046; 71260; 74177; 80048; 80053; 80202; 80306; 80320; 81001; 82140; 82565; 83605; 83615; 83735; 84145; 84520; 85025; 85379; 85610; 85652; 85730; 86140; 86850; 86900; 86901; 87040; 87070; 87086; 87102; 87116; 87205; 87206; 87252; 87324; 87496; 87498; 87502; 87529; 87634; 87798; 88104; 88108; 88305; 89050; 93005; 93306; 94640; 95816; 96361; 96365; 96375; 99285

== ENCOUNTER 2020-10-18 18:28 | Inpatient (IN) | payer OTHER ==
[2020-10-18] MEDS ORDERED: MORPHINE SULFATE 4 MG/ML SYRINGE IVP STA (19:28)
[2020-10-18] MEDS ORDERED: SODIUM CHLORIDE 0.9% 1,000 ML IV ONE (19:28)
--- NOTE | 2020-10-18 19:54 | ED ---
General Adult HPI - General Chief complaint: Skin/Abscess/Foreign Body Stated complaint: L breast tender and drainage Time Seen by Provider: 10/18/20 19:09 Source: patient, RN notes reviewed, old records reviewed Mode of arrival: ambulatory Limitations: no limitations - History of Present Illness Initial comments: Patient is a 60-year-old female who presents emergency department today with complaints of one week of tender lumps underneath bilateral axilla. She reports that then after she noticed the bumps over her right axilla she noticed pain developing on the left. She then starts states the day after that she noticed a red small pimple on the left side of her breast. She reports that this opened and now has had significant purulent drainage. She went to see her primary care doctor today who sent her here for further evaluation. Patient states that she's had no fevers or chills. She does report family history of breast cancer of her sister who is now on remission. She denies any shortness of breath chest pain or other complaints. - Related Data Home Medications Medication Instructions Recorded Confirmed Baclofen [Lioresal] 20 mg PO TID 12/10/14 08/23/20 Buta/APAP/Caf/Cod 96-336-04-30 1 tab PO TID PRN 12/10/14 08/23/20 [Fioricet w/Cod 33-503-18-30MG] Diphenox-Atrop 2.5-0.025 mg 1 - 2 tab PO QID PRN 12/10/14 08/23/20 [Lomotil] Pregabalin [Lyrica] 150 mg PO BID 12/10/14 08/23/20 Verapamil HCl [Verapamil ER] 240 mg PO DAILY 12/10/14 08/23/20 clonazePAM [Clonazepam] 1 mg PO BID PRN 12/10/14 08/23/20 traMADol HCl [Ultram] 50 mg PO TID PRN 12/10/14 08/23/20 HYDROcodone/APAP 10-325MG [[place] 1 tab PO QID 09/22/15 08/23/20 10-325] Albuterol Inhaler [Ventolin Hfa 2 puff INHALATION RT-Q4H PRN 07/01/20 08/23/20 Inhaler] Albuterol Nebulized [Ventolin 2.5 mg INHALATION RT-TID PRN 07/01/20 08/23/20 Nebulized] DULoxetine HCL [Cymbalta] 60 mg PO DAILY 07/01/20 08/23/20 Ergocalciferol (Vitamin D2) 50,000 unit PO KELLEY 07/01/20 08/23/20 [Drisdol] Metoprolol Tartrate 25 mg PO BID 07/01/20 08/23/20 modafiniL [Provigil] 200 mg PO BID PRN 07/01/20 08/23/20 Atorvastatin Calcium [Lipitor] 80 mg PO HS 08/23/20 08/23/20 Ipratropium-Albuterol Nebulize 3 ml INHALATION RT-TID PRN 08/23/20 08/23/20 [Duoneb 0.5 mg-3 mg/3 ml Soln] Nicotine 21Mg/24Hr Patch [Habitrol] 1 patch TRANSDERM DAILY 08/23/20 08/23/20 Previous Rx's Medication Instructions Recorded Budesonide-Formot 160-4.5 Mcg 2 puff INHALATION RT-BID #1 puff 07/03/20 [Symbicort 160-4.5 Mcg Inhaler] Acetaminophen Tab [Tylenol] 650 mg PO Q6HR PRN tab 08/30/20 Amoxicillin/Potassium Clav 1 tab PO Q12HR 12 Days #24 tab 08/30/20 [Augmentin 875-125 Tablet] Dicyclomine [Bentyl] 20 mg PO QID PRN #30 tab 08/30/20 Fluconazole [Diflucan] 100 mg PO DAILY #10 tablet 08/30/20 Pantoprazole [Protonix] 40 mg PO AC-BRKFST #30 tablet.dr 08/30/20 predniSONE 30 mg PO DAILY #40 tab 08/30/20 valACYclovir HCL [Valtrex] 1,000 mg PO BID 5 Days #10 tablet 08/30/20 Allergies Allergy/AdvReac Type Severity Reaction Status Date / Time No Known Allergies Allergy Verified 10/18/20 19:03 Review of Systems ROS Statement: Those systems with pertinent positive or pertinent negative responses have been documented in the HPI. ROS Other: All systems not noted in ROS Statement are negative. Past Medical History Past Medical History: Hyperlipidemia, Hypertension, Musculoskeletal Disorder Additional Past Medical History / Comment(s): migraines, ulcerative colitis, lumbar degenerative disc, fibromyalgia, MS History of Any Multi-Drug Resistant Organisms: None Reported Past Surgical History: Tubal Ligation Additional Past Surgical History / Comment(s): fx femurs, facial surgery, deviated septum, AJITH and RFA to neck and back Past Anesthesia/Blood Transfusion Reactions: No Reported Reaction Past Psychological History: Anxiety, Depression Smoking Status: Former smoker Past Alcohol Use History: Rare Past Drug Use History: None Reported - Past Family History Sister(s) Family Medical History: Cancer Additional Family Medical History / Comment(s): breast General Exam - General Exam Comments Initial Comments: 60-year-old female. Alert and oriented 3. Limitations: no limitations General appearance: alert, in no apparent distress Head exam: Present: atraumatic, normocephalic, normal inspection Eye exam: Present: normal appearance, PERRL, EOMI. Absent: scleral icterus, conjunctival injection, periorbital swelling ENT exam: Present: normal exam, mucous membranes moist Neck exam: Present: normal inspection. Absent: tenderness, meningismus, lymphadenopathy Respiratory exam: Present: normal lung sounds bilaterally, other (Patient has large erythematous left breast with firm mass at the 12:00 to 9 o'clock position. There is evidence of drainage and cavitation noted to the 2 o'clock position of the breast. Tender adenopathy noted). Absent: respiratory distress, wheezes, rales, rhonchi, stridor Cardiovascular Exam: Present: regular rate, normal rhythm, normal heart sounds. Absent: systolic murmur, diastolic murmur, rubs, gallop, clicks GI/Abdominal exam: Present: soft, normal bowel sounds. Absent: distended, tenderness, guarding, rebound, rigid Course Vital Signs 10/18/20 18:58 Temperature 98.0 F Pulse Rate 72 Respiratory 16 Rate Blood Pressure 126/79 O2 Sat by Pulse 98 Oximetry Medical Decision Making - Medical Decision Making 60-year-old female who presents the emergency room today with 1 week of tender lumps in bilateral axilla, as well as one week of the left breast abscess drainage. Patient has a firm mass at the 11 o'clock position and evidence of hyperemia and open hole with purulent drainage at the 2 o'clock position. Patient has findings or concern for possible cancer. She does report she has a family history of breast cancer. She does state that she has been getting yearly mammograms. She has significant lymphadenopathy in bilateral axilla. Patient had a wound culture completed. She started an IV antibiotics of Kefzol. White blood cell count is elevated 8 the 18,000. Patient at this time will be admitted to Dr. leon after I discussed with Dr. lucia narvaez. We'll consult Gen. surgery. Patient will be remaining nothing by mouth at midnight. - Lab Data Result diagrams: 10/18/20 20:10/18/20 20: Lab Results 10/18/20 10/18/20 10/18/20 Range/Units 20: 20: 20: WBC 18.6 H (3.8-10.6) k/uL RBC 3.48 L (3.80-5.40) m/uL Hgb 9.8 L (11.4-16.0) gm/dL Hct 31.9 L (34.0-46.0) % MCV 91.9 (80.0-100.0) fL MCH 28.2 (25.0-35.0) pg MCHC 30.7 L (31.0-37.0) g/dL RDW 16.4 H (11.5-15.5) % Plt Count 494 H (150-450) k/uL MPV 8.0 Neutrophils % 79 % Lymphocytes % 14 % Monocytes % 4 % Eosinophils % 2 % Basophils % 0 % Neutrophils # 14.6 H (1.3-7.7) k/uL Lymphocytes # 2.6 (1.0-4.8) k/uL Monocytes # 0.8 (0-1.0) k/uL Eosinophils # 0.5 (0-0.7) k/uL Basophils # 0.1 (0-0.2) k/uL Hypochromasia Slight Anisocytosis Slight Sodium 139 (137-145) mmol/L Potassium 4.2 (3.5-5.1) mmol/L Chloride 104 (98-107) mmol/L Carbon Dioxide 29 (22-30) mmol/L Anion Gap 6 mmol/L BUN 4 L (7-17) mg/dL Creatinine 0.59 (0.52-1.04) mg/dL Est GFR (CKD-EPI)AfAm >90 (>60 ml/min/1.73 sqM) Est GFR (CKD-EPI)NonAf >90 (>60 ml/min/1.73 sqM) Glucose 90 (74-99) mg/dL Plasma Lactic Acid [place] 1.5 (0.7-2.0) mmol/L Calcium 9.0 (8.4-10.2) mg/dL Total Bilirubin 0.4 (0.2-1.3) mg/dL AST 24 (14-36) U/L ALT 16 (4-34) U/L Alkaline Phosphatase 133 H (38-126) U/L Total Protein 6.2 L (6.3-8.2) g/dL Albumin 3.2 L (3.5-5.0) g/dL - Radiology Data Radiology results: report reviewed Indeterminate 5.2 cm breast mass at 11:00. At 0. Recommended further evaluation with mammogram. Also left axillary draining fluid with underlying 1.2 similar hyperechoic. Hyperemia. Infected fluid versus malignancy cannot be excluded. Attention mammogram. Bilateral lymphadenopathy noted. Disposition Clinical Impression: Left breast mass, Axillary lymphadenopathy, Left breast abscess, Leukocytosis Disposition: ADMITTED IP TO THIS HOSP Condition: Stable Is patient prescribed a controlled substance at d/c from ED?: No Referrals: Farzana Keating PAC [REFERRING] - 1-2 days Time of Disposition: 22:33
[2020-10-18] MEDS: SODIUM CHLORIDE 0.9% 1,000 ML IV SCH (20:28)
[2020-10-18] MEDS ORDERED: HYDROmorphone 1 MG/ML 1 ML SYRINGE IM STA (20:44)
[2020-10-18 20:51] LABS: Anisocytosis Slight; Basophils # (A) 0.1 k/uL (0-0.2); Basophils % (A) 0 %; Eosinophils # (A) 0.5 k/uL (0-0.7); Eosinophils % (A) 2 %; HCT 31.9 % (34.0-46.0); HGB 9.8 gm/dL (11.4-16.0); Hypochromasia Slight; Lymphocytes # (A) 2.6 k/uL (1.0-4.8); Lymphocytes % (A) 14 %; MCH 28.2 pg (25.0-35.0); MCHC 30.7 g/dL (31.0-37.0); MCV 91.9 fL (80.0-100.0); Monocytes # (A) 0.8 k/uL (0-1.0); Monocytes % (A) 4 %; Neutrophils # (A) 14.6 k/uL (1.3-7.7); Neutrophils % (A) 79 %; Platelet Count 494 k/uL (150-450); RBC 3.48 m/uL (3.80-5.40); RDW 16.4 % (11.5-15.5); WBC 18.6 k/uL (3.8-10.6)
[2020-10-18 21:01] LABS: ALT 16 U/L (4-34); AST 24 U/L (14-36); African American GFR (CKD) >90 (>60 ml/min/1.73 sqM); Albumin 3.2 g/dL (3.5-5.0); Alkaline Phosphatase 133 U/L (38-126); Anion Gap 6 mmol/L; Blood Urea Nitrogen 4 mg/dL (7-17); Carbon Dioxide 29 mmol/L (22-30); Chloride 104 mmol/L (98-107); Glucose 90 mg/dL (74-99); Non-African American GFR(CKD) >90 (>60 ml/min/1.73 sqM); Potassium 4.2 mmol/L (3.5-5.1); Sodium 139 mmol/L (137-145); Total Bilirubin 0.4 mg/dL (0.2-1.3); Total Protein 6.2 g/dL (6.3-8.2)
[2020-10-18] MEDS ORDERED: HYDROmorphone 1 MG/ML 1 ML SYRINGE IVP STA (21:41)
--- NOTE | 2020-10-18 21:56 | USB ---
EXAMINATION TYPE: US breast limited BILAT DATE OF EXAM: 10/18/2020 COMPARISON: CT chest 08/24/2020 CLINICAL HISTORY: mass, drainage. right axillary adenopathy and visible palpable lumps. Left palpable lump 11:00 A/BC and draining left breast abscess. Patient noticed these areas 1-2 weeks ago. FINDINGS: There is an indeterminate 5 x 1.6 x 5.2 cm ovoid shaped, irregular mass in the left breast at 11:00, corresponding to palpable lump. There is an additional 1.5 x 0.8 x 1.2 cm hypoechoic area with hyperemia in the left axilla, that appears contiguous with the skin. This area corresponds to patient's draining fluid. There are also bilateral prominent axillary lymph nodes with index lesion measuring 1.2 x 0.5 x 0.8 cm on the left. MTDD
[2020-10-18] MEDS ORDERED: ONDANSETRON 4 MG/2 ML VIAL IVP PRN (22:33)
[2020-10-18] MEDS ORDERED: KETOROLAC 15 MG/ML 1 ML VIAL IVP PRN (22:33)
[2020-10-18] MEDS ORDERED: IBUPROFEN 400 MG TAB PO PRN (22:33)
[2020-10-18] MEDS ORDERED: ACETAMINOPHEN TAB 325 MG TAB PO PRN (22:33)
[2020-10-18] MEDS ORDERED: NALOXONE 0.4 MG/ML 1 ML VIAL IV PRN (22:33)
[2020-10-18] MEDS ORDERED: PIPERACILLIN-TAZOBACTAM 3.375 GM in SODIUM CHLORIDE 0.9% 100 ML IVPB STA (22:35)
[2020-10-19] MEDS: HYDROmorphone 1 MG/ML 1 ML SYRINGE IVP PRN ×4 (01:52→21:45)
[2020-10-19] MEDS: SODIUM CHLORIDE 0.9% 1,000 ML IV SCH ×2 (06:14→15:29)
[2020-10-19] MEDS ORDERED: PIPERACILLIN-TAZOBACTAM 3.375 GM in SODIUM CHLORIDE 0.9% 100 ML IVPB SCH (08:00)
[2020-10-19] MEDS ORDERED: IPRATROPIUM-ALBUTEROL 3 ML NEB INHALATION PRN (09:03)
[2020-10-19] MEDS ORDERED: traMADol 50 MG TAB PO PRN (09:03)
[2020-10-19] MEDS ORDERED: DIPHENOX-ATROP 2.5-0.025 MG 1 EACH TAB PO PRN (09:03)
[2020-10-19] MEDS ORDERED: BACLOFEN 10 MG TAB PO PRN (09:03)
[2020-10-19] MEDS ORDERED: ACETAMINOPHEN TAB 325 MG TAB PO PRN (09:03)
[2020-10-19] MEDS ORDERED: clonazePAM 1 MG TAB PO PRN (09:03)
[2020-10-19] MEDS ORDERED: ALBUTEROL HFA INHALER INHALATION PRN (09:03)
[2020-10-19] MEDS ORDERED: ALBUTEROL NEBULIZED 2.5 MG/3 ML INHALATION PRN (09:03)
[2020-10-19] MEDS ORDERED: BUTA/APAP/CAF/COD 50-325-40-30 CAP PO PRN (09:03)
[2020-10-19] MEDS: VERAPAMIL SR 240 MG TABLET.ER PO SCH (10:08)
[2020-10-19] MEDS: METOPROLOL TARTRATE 25 MG TAB PO SCH ×2 (10:09→21:29)
[2020-10-19] MEDS: HYDROcodone/APAP 10-325MG 1 EACH TAB PO PRN ×2 (10:09→18:47)
[2020-10-19] MEDS: DULoxetine HCL 60 MG CAPSULE.DR PO SCH (10:09)
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
[2020-10-19] MEDS: PREGABALIN 75 MG CAP PO SCH ×2 (12:31→21:29)
--- NOTE | 2020-10-19 17:45 | CT ---
EXAMINATION TYPE: CT chest w con DATE OF EXAM: 10/19/2020 COMPARISON: CT 08/24/2020. Breast ultrasound 10/18/2020. HISTORY: Fall, left sided breast mass as well as lumps to axilla bilaterally. CT DLP: 250.6 mGycm Automated exposure control for dose reduction was used. CONTRAST: CT scan of the chest is performed with IV Contrast, patient injected with 100 mL of Isovue 300. FINDINGS: LUNGS: There is residual small opacity in the right lower lobe perihilar region at site of previous p ulmonary cavitary lesion. There is persistent mild atelectasis of the lingula. No definite new pulmon tiffany opacity, consolidation, pleural effusion or pneumothorax. There are unchanged scattered multiple bilateral pulmonary nodules, most notable in the right upper and left lower lobes. Index lesion essie ures up to 7 mm. MEDIASTINUM: There are no greater than 1 cm hilar or mediastinal lymph nodes. No pericardial effusi on is seen. OTHER: 4.3 x 2.1 cm oval-shaped homogeneous, low attenuating left breast lesion with tiny focus of g as seen. Bilateral mildly prominent axillary lymph nodes are seen. There is also prominence of the le ft axillary tail. IMPRESSION: 4.3 cm left breast lesion with tiny focus of gas and corresponds to ultrasound finding. Findings are suspicious for abscess/infected hematoma, given the homogenous appearance, somewhat rim enhancement a nd short interval development. Recommend ultrasound guided aspiration and/or biopsy. Residual opacity/scarring at site of previous right lower lobe cavitary lesion. Also left lingular at electasis. Unchanged multiple bilateral pulmonary nodules. Otherwise no acute cardiopulmonary abnormality.
--- NOTE | 2020-10-19 19:38 | P.HPIM ---
History of Present Illness H&P Date: 10/19/20 Chief Complaint: Tender lumps Chief Complaint: Shortness of breath History of presenting complaint: This is a pleasant 52-year-old patient Dr. love from [place]. Chronic stable medical conditions include diabetes, GERD, sleep apnea stopped using CPAP since he lost weight, osteoarthritis in the back and neck, anxiety depression. She's been bothered by ALLERGIES for last few days. Some wheezing. Became more short of breath progressively. 3 days ago when she a family Dr. love was given steroids without much improvement. She has continued to smoke cigarettes. Denies any fever and chills. Appetite is okay. No change in bowel pattern. No headaches. No muscle aches. Significant wheezing. Presented for the same. Review of systems: GEN.: Tired EYES: None HEENT: None NECK: None RESPIRATORY: As above CARDIOVASCULAR: None GASTROINTESTINAL: None GENITOURINARY: None MUSCULOSKELETAL: Some joint pains LYMPHATICS: None HEMATOLOGICAL: None PSYCHIATRY: None NEUROLOGICAL: None Past medical history to include: COPD, diabetes, GERD, obstructive sleep apnea stopped using CPAP since she lost weight, osteoarthritis, the back and neck, anxiety, depression, pediatric surgery-gastric sleeve Social history: . Smoking for about 30 years close to pack a day. No alcohol. 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 Family history: COPD, breast cancer Physical examination: VITAL SIGNS: 98.9, 123, 26, 150/67, 92% room air GENERAL: BMI 24.4, sitting up in bed, slightly short of breath. EYES: Pupils equal. Conjunctiva normal. HEENT: External appearance of nose and ears normal, oral cavity grossly normal. NECK: JVD not raised; masses not palpable. HEART: First and second heart sounds are normal; no edema. LUNGS: Respiratory rate increased, decreased breaths, on prolonged expiration. ABDOMEN: Soft, nontender, liver spleen not palpable, no masses palpable. PSYCH: Alert and oriented x3; mood and affect normal. NEUROLOGICAL: Cranial nerves grossly intact; no facial asymmetry, power and sensation grossly intact. LYMPHATICS: No lymph nodes palpable in the axilla and neck INVESTIGATIONS, reviewed in the clinical context: White count 14.7 hemoglobin 15.9 platelets 290 increased neutrophils potassium 4.2 bun 19 creatinine 0.7 to Lactic acid 2.1 Troponin I less than 0.012 COVID 19 P/Cr-not detected Influenza type A type B both negative EKG tracing personally reviewed by me-normal sinus rhythm Chest x-ray film personally reviewed by me-possible chronic changes Assessment: -Acute COPD exacerbation in a current smoker -Chronic nicotine dependence patient cigarette smoker -Diabetes mellitus type 2 -GERD -Anxiety depression otherwise specified Plan: Patient started on nebulized bronchodilators every 4 hours, long-acting beta agonist nebulizer, IV Solu-Medrol, home medications resumed. Lovenox for DVT prophylaxis. Care was discussed with the patient question also. Smoke cessation counseling: This was done with the patient. Nicotine patch is being given. More than 3 minutes was spent for this Past Medical History Past Medical History: Hyperlipidemia, Hypertension, Musculoskeletal Disorder Additional Past Medical History / Comment(s): migraines, ulcerative colitis, lumbar degenerative disc, fibromyalgia, MS History of Any Multi-Drug Resistant Organisms: None Reported Past Surgical History: Tubal Ligation Additional Past Surgical History / Comment(s): fx femurs, facial surgery, devia lindy septum, AJITH and RFA to neck and back Past Anesthesia/Blood Transfusion Reactions: No Reported Reaction Past Psychological History: Anxiety, Depression Smoking Status: Former smoker Past Alcohol Use History: Rare Past Drug Use History: None Reported - Past Family History Sister(s) Family Medical History: Cancer Additional Family Medical History / Comment(s): breast Medications and Allergies Home Medications Medication Instructions Recorded Confirmed Type Baclofen [Lioresal] 20 mg PO TID PRN 12/10/14 10/18/20 History Buta/APAP/Caf/Cod 87-866-02-30 1 tab PO TID PRN 12/10/14 10/18/20 History [Fioricet w/Cod 17-648-41-30MG] Diphenox-Atrop 2.5-0.025 mg 1 - 2 tab PO QID PRN 12/10/14 10/18/20 History [Lomotil] Pregabalin [Lyrica] 150 mg PO BID 12/10/14 10/18/20 History Verapamil HCl [Verapamil ER] 240 mg PO DAILY 12/10/14 10/18/20 History clonazePAM [Clonazepam] 1 mg PO BID PRN 12/10/14 10/18/20 History traMADol HCl [Ultram] 50 mg PO TID PRN 12/10/14 10/18/20 History HYDROcodone/APAP 10-325MG [[place] 1 tab PO QID PRN 09/22/15 10/18/20 History 10-325] Albuterol Inhaler [Ventolin Hfa 2 puff INHALATION RT-Q4H PRN 07/01/20 10/18/20 History Inhaler] Albuterol Nebulized [Ventolin 2.5 mg INHALATION RT-TID PRN 07/01/20 10/18/20 History Nebulized] DULoxetine HCL [Cymbalta] 60 mg PO DAILY 07/01/20 10/18/20 History Ergocalciferol (Vitamin D2) 50,000 unit PO KELLEY 07/01/20 10/18/20 History [Drisdol] Metoprolol Tartrate 25 mg PO BID 07/01/20 10/18/20 History modafiniL [Provigil] 200 mg PO BID PRN 07/01/20 10/18/20 History Atorvastatin Calcium [Lipitor] 80 mg PO HS 08/23/20 10/18/20 History Ipratropium-Albuterol Nebulize 3 ml INHALATION RT-TID PRN 08/23/20 10/18/20 History [Duoneb 0.5 mg-3 mg/3 ml Soln] Acetaminophen Tab [Tylenol] 650 mg PO Q6HR PRN tab 08/30/20 10/18/20 Rx Allergies Allergy/AdvReac Type Severity Reaction Status Date / Time No Known Allergies Allergy Verified 10/18/20 22:30 Physical Exam Vitals: Vital Signs Temp Pulse Pulse Resp BP BP Pulse Ox 10/19/20 08:15 98.5 F 83 14 117/69 96 10/19/20 03:00 98.3 F 75 18 123/80 97 10/18/20 23:06 98.2 F 71 18 116/70 98 10/18/20 23:00 98.4 F 71 17 116/72 99 10/18/20 22:00 76 17 129/81 98 10/18/20 21:00 74 17 134/84 98 10/18/20 20:00 74 17 126/78 98 10/18/20 18:58 98.0 F 72 16 126/79 98 Intake and Output 10/18/20 10/19/20 10/19/20 22:59 06:59 14:59 Other: Voiding Method Toilet Toilet # Voids 1 Weight 52.163 kg 52.163 kg Results CBC & Chem 7: 10/18/20 20:27 10/18/20 20:27 Labs: Abnormal Lab Results - Last 24 Hours (Table) 10/18/20 10/18/20 Range/Units 20:27 20:27 WBC 18.6 H (3.8-10.6) k/uL RBC 3.48 L (3.80-5.40) m/uL Hgb 9.8 L (11.4-16.0) gm/dL Hct 31.9 L (34.0-46.0) % MCHC 30.7 L (31.0-37.0) g/dL RDW 16.4 H (11.5-15.5) % Plt Count 494 H (150-450) k/uL Neutrophils # 14.6 H (1.3-7.7) k/uL BUN 4 L (7-17) mg/dL Alkaline Phosphatase 133 H (38-126) U/L Total Protein 6.2 L (6.3-8.2) g/dL Albumin 3.2 L (3.5-5.0) g/dL Microbiology - Last 24 Hours (Table) 10/18/20 20:04 Gram Stain - Preliminary Breast - Left Wound Culture - Preliminary Thrombosis Risk Factor Assmnt - Choose All That Apply Each Factor Represents 1 point: Age 41-60 years Other Risk Factors: No Other congenital or acquired thrombophilia - If yes, enter type in comment: No Thrombosis Risk Factor Assessment Total Risk Factor Score: 1 Thrombosis Risk Factor Assessment Level: Low Risk
--- NOTE | 2020-10-19 19:42 | P.HPIM ---
History of Present Illness H&P Date: 10/19/20 Chief Complaint: Pus drainage History of presenting complaint: This is a pleasant 60-year-old patient of Dr. Isaiah Farris. Chronic stable medical conditions include hyperlipidemia, hypertension, lumbar DJD, fibromyalgia, MS, ulcerative colitis. Patient 2 weeks ago fell and hurt her anterior chest wall when she fell against a CD rack. Current tired anterior chest wall heart without able to move her arms for some time because of pain. She noticed painful bumps in both the armpits. And came to the ER. Overnight large amount of pus drained. Ultrasound of the breast showed 2 distinct masses one being hypoechoic with hyperemia continue was in the axilla skin. Bilateral axillary lymph nodes were also positive. No fever no chills. Patient appetite has been down. Has lost some weight. Some more pus drained this morning. Review of systems: GEN.: Weight loss loss of appetite EYES: None HEENT: None NECK: None RESPIRATORY: None CARDIOVASCULAR: None GASTROINTESTINAL: None GENITOURINARY: None MUSCULOSKELETAL: As above LYMPHATICS: None HEMATOLOGICAL: None PSYCHIATRY: None NEUROLOGICAL: None. Past medical history to include: Hyperlipidemia, hypertension, migraine, ulcerative colitis, lumbar DJD, fibromyalgia, MS, anxiety depression Social history: Lives alone. Stop smoking 2 months ago. Smoked for about 40 years. Alcohol rarely. Family history: Breast cancer Physical examination: VITAL SIGNS: 98, 72, 16, 126/79, 98% room air GENERAL: BMI 98.1, sitting on bed, awake. EYES: Pupils equal. Conjunctiva normal. HEENT: External appearance of nose and ears normal, oral cavity grossly normal. NECK: JVD not raised; masses not palpable. HEART: First and second heart sounds are normal; no edema. LUNGS: Respiratory rate normal; clear to auscultation. ABDOMEN: Soft, nontender, liver spleen not palpable, no masses palpable. CHEST wall: Examined in the presence of nurse injection molding machine offbearer patient has not liver masses in both the armpits, tender, left breasts has a firm mass. PSYCH: Alert and oriented x3; mood and affect normal. NEUROLOGICAL: Cranial nerves grossly intact; no facial asymmetry, power and sensation grossly intact. LYMPHATICS: No lymph nodes palpable in the axilla and neck INVESTIGATIONS, reviewed in the clinical context: White count 18.6 hemoglobin 9.8 platelets 494 increased neutrophils potassium 4.2 bun 4 creatinine 0.59 Breast ultrasound-indeterminate 5 x 1.6 x 5.2 cm ovoid shaped it is no mass in the left breast at 11:08 AM corresponding to palpable lump. Additional 1.5 x 0.8 x 1.2 cm hypoechoic area with hyperemia in the left axilla that appears contiguous with the skin. Bilateral prominent axillary lymph nodes with index lesion measuring 1.2 x 0.5 x 0.8 cm on the left. CT chest-4.3 cm left breast lesion with tiny focus of gas and corresponds to ultrasound findings. Lungs-unchanged scattered multiple bilateral pulmonary nodules. Assessment: -There is an interesting mix of signs and symptoms. Patient did take a fall on her anterior chest about 2 weeks ago. Was having significant amount of pain and tenderness. Noticed painful bumps in both the armpits. Now presents with draining pus especially on the left side. Large amount of pus has been updated. It does appear patient may have an underlying breast cancer involving the lymph nodes and hematoma secondary to fall that got infected. That is not draining. Patient does have weight loss and loss of appetite. -Hyperlipidemia -Essential hypertension -Ulcerative colitis -Lumbar DJD and-fibromyalgia -MS -Anxiety depression otherwise specified Plan: Home medications resumed. Patient is on IV fluids IV Ancef. Discussed with Dr. Kraig Martinez-breast surgeon. We will have interventional radiologist get a core biopsy of the mass. Also consult ID in the meantime. Care was discussed with the patient. Questions answered. Cultures have been sent off. Lovenox for DVT prophylaxis. Past Medical History Past Medical History: Hyperlipidemia, Hypertension, Musculoskeletal Disorder Additional Past Medical History / Comment(s): migraines, ulcerative colitis, lumbar degenerative disc, fibromyalgia, MS History of Any Multi-Drug Resistant Organisms: None Reported Past Surgical History: Tubal Ligation Additional Past Surgical History / Comment(s): fx femurs, facial surgery, deviated septum, AJITH and RFA to neck and back Past Anesthesia/Blood Transfusion Reactions: No Reported Reaction Past Psychological History: Anxiety, Depression Smoking Status: Former smoker Past Alcohol Use History: Rare Past Drug Use History: None Reported - Past Family History Sister(s) Family Medical History: Cancer Additional Family Medical History / Comment(s): breast Medications and Allergies Home Medications Medication Instructions Recorded Confirmed Type Baclofen [Lioresal] 20 mg PO TID PRN 12/10/14 10/18/20 History Buta/APAP/Caf/Cod [id number] 1 tab PO TID PRN 12/10/14 10/18/20 History [Fioricet w/Cod 16-279-96-30MG] Diphenox-Atrop 2.5-0.025 mg 1 - 2 tab PO QID PRN 12/10/14 10/18/20 History [Lomotil] Pregabalin [Lyrica] 150 mg PO BID 12/10/14 10/18/20 History Verapamil HCl [Verapamil ER] 240 mg PO DAILY 12/10/14 10/18/20 History clonazePAM [Clonazepam] 1 mg PO BID PRN 12/10/14 10/18/20 History traMADol HCl [Ultram] 50 mg PO TID PRN 12/10/14 10/18/20 History HYDROcodone/APAP 10-325MG [[place] 1 tab PO QID PRN 09/22/15 10/18/20 History 10-325] Albuterol Inhaler [Ventolin Hfa 2 puff INHALATION RT-Q4H PRN 07/01/20 10/18/20 History Inhaler] Albuterol Nebulized [Ventolin 2.5 mg INHALATION RT-TID PRN 07/01/20 10/18/20 History Nebulized] DULoxetine HCL [Cymbalta] 60 mg PO DAILY 07/01/20 10/18/20 History Ergocalciferol (Vitamin D2) 50,000 unit PO KELLEY 07/01/20 10/18/20 History [Drisdol] Metoprolol Tartrate 25 mg PO BID 07/01/20 10/18/20 History modafiniL [Provigil] 200 mg PO BID PRN 07/01/20 10/18/20 History Atorvastatin Calcium [Lipitor] 80 mg PO HS 08/23/20 10/18/20 History Ipratropium-Albuterol Nebulize 3 ml INHALATION RT-TID PRN 08/23/20 10/18/20 History [Duoneb 0.5 mg-3 mg/3 ml Soln] Acetaminophen Tab [Tylenol] 650 mg PO Q6HR PRN tab 08/30/20 10/18/20 Rx Allergies Allergy/AdvReac Type Severity Reaction Status Date / Time No Known Allergies Allergy Verified 10/18/20 22:30 Physical Exam Vitals: Vital Signs Temp Pulse Pulse Resp BP BP Pulse Ox 10/19/20 15:35 98.0 F 70 14 92/61 95 10/19/20 08:15 98.5 F 83 14 117/69 96 10/19/20 03:00 98.3 F 75 18 123/80 97 10/18/20 23:06 98.2 F 71 18 116/70 98 10/18/20 23:00 98.4 F 71 17 116/72 99 10/18/20 22:00 76 17 129/81 98 10/18/20 21:00 74 17 134/84 98 10/18/20 20:00 74 17 126/78 98 Intake and Output 10/19/20 10/19/20 10/19/20 06:59 14:59 22:59 Other: Voiding Method Toilet Toilet # Voids 1 1 Weight 52.163 kg Results CBC & Chem 7: 10/18/20 20:27 10/18/20 20:27 Labs: Abnormal Lab Results - Last 24 Hours (Table) 10/18/20 10/18/20 Range/Units 20:27 20:27 WBC 18.6 H (3.8-10.6) k/uL RBC 3.48 L (3.80-5.40) m/uL Hgb 9.8 L (11.4-16.0) gm/dL Hct 31.9 L (34.0-46.0) % MCHC 30.7 L (31.0-37.0) g/dL RDW 16.4 H (11.5-15.5) % Plt Count 494 H (150-450) k/uL Neutrophils # 14.6 H (1.3-7.7) k/uL BUN 4 L (7-17) mg/dL Alkaline Phosphatase 133 H (38-126) U/L Total Protein 6.2 L (6.3-8.2) g/dL Albumin 3.2 L (3.5-5.0) g/dL Microbiology - Last 24 Hours (Table) 10/18/20 20:04 Gram Stain - Preliminary Breast - Left Wound Culture - Preliminary Thrombosis Risk Factor Assmnt - Choose All That Apply Each Factor Represents 1 point: Age 41-60 years Other Risk Factors: No Other congenital or acquired thrombophilia - If yes, enter type in comment: No Thrombosis Risk Factor Assessment Total Risk Factor Score: 1 Thrombosis Risk Factor Assessment Level: Low Risk
[2020-10-19] MEDS: ENOXAPARIN 40 MG/0.4 ML SYRINGE SQ SCH (21:29)
[2020-10-19] MEDS: ATORVASTATIN 80 MG TAB PO SCH (21:29)
[2020-10-20] MEDS: SODIUM CHLORIDE 0.9% 1,000 ML IV SCH ×2 (00:44→20:45)
[2020-10-20] MEDS: HYDROmorphone 1 MG/ML 1 ML SYRINGE IVP PRN ×4 (00:57→22:05)
[2020-10-20] MEDS: HYDROcodone/APAP 10-325MG 1 EACH TAB PO PRN ×3 (05:17→20:44)
--- NOTE | 2020-10-20 06:22 | CONS ---
CONSULTATION DATE OF SERVICE: 10/19/2020 REASON FOR CONSULTATION: Left breast abscess infection. HISTORY OF PRESENT ILLNESS: The patient is a 60-year-old female presenting to the ER at [facility] for evaluation of tender lumps under bilateral axilla areas. Apparently the patient noticed to have a lump in the right axilla subsequent to the left axilla and to the left side of her left breast. The patient mentioned it developed as a pimple and has subsequently increased in size and subsequently ruptured and drainage of some pus. Patient she she was putting pressure on it and dark pleural fluid will come out. She has been complaining of pain to the left axillary area, as well as left side of the breast, more of a dull aching, at times sharp, 5 to 6/10 and no radiation. The patient denies having any fever or any chills. With these symptoms, the patient was evaluated by the ER physician. On arrival to the ER, the patient was afebrile. The patient did have a white count of 18.6. Kidney function was normal. Local culture has been obtained. Blood cultures obtained, currently pending. The patient did have an ultrasound of the breast which did shows 5 x 1.6 x 5.2 irregular mass in the left breast at 11 o'clock corresponding to a palpable lump. CT confirmed those finding. Infectious Disease was consulted for further management of antibiotic therapy. REVIEW OF SYSTEMS: Positive points have been mentioned in HPI. Rest of the systems are negative. PAST MEDICAL HISTORY: Hypertension, hyperlipidemia, migraines, ulcerative colitis, fibromyalgia, MS. PAST SURGICAL HISTORY: Tubal ligation, facial surgery, deviated septum, fractured femur repair. SOCIAL HISTORY: Remote history of smoking. Rarely drinks. No drug use. FAMILY HISTORY: Sister with a history of breast cancer. ALLERGIES: No known drug allergies. MEDICATIONS: The patient is currently on Tylenol, [place], DuoNeb, Lipitor, cefazolin 2 g q.8 hours, clonopin, Lomotil, Lovenox, Dilaudid, Motrin, Toradol, Prevagen, Narcan, Zofran, . PHYSICAL EXAMINATION: Blood pressure 119/80 with a pulse of 74, temperature 98.7, she is 95% on room air. GENERAL DESCRIPTION: The patient is a middle-aged female lying in bed in no distress. No tachypnea or accessory muscles of respiration use. HEENT: Shows slight pallor. No scleral icterus. Oral mucous membranes are dry. No pharyngeal edema or thrush. NECK: Trachea central. No thyromegaly. LUNGS: Unlabored breathing, clear to auscultation anteriorly. No wheeze or crackle. HEART: S1, S2. Regular rate and rhythm. ABDOMEN: Soft, no tenderness. No guarding or rigidity. EXTREMITIES: No edema of the feet. SKIN: As mentioned, the left breast area on the lateral side did have area of palpable with some purulent drainage and did have bilateral axillary nodules, but no significant redness or drainage. NEUROLOGICAL: Patient is awake, alert, oriented x3. Mood and affect normal. LABS: Hemoglobin 9.8, white count 18.6, creatinine 0.59. Ultrasound and CT report as mentioned above. DIAGNOSTIC IMPRESSION: Patient with left breast abscess with evidence of bilateral axillary adenopathy, likely from a staphylococcal infection in this patient currently with no risk factor for MRSA infection or a gram-negative infection. PLAN: 1. Cefazolin 2 g q.8 hours. 2. Await surgical drainage of this abscess. 3. We will follow on clinical condition and culture to further adjust medication if needed. Thank you for this consultation. Will follow this patient along with you. MMODL / IJN: [id number] /
[2020-10-20 08:22] LABS: Anisocytosis Slight; HCT 35.6 % (34.0-46.0); HGB 10.7 gm/dL (11.4-16.0); Hypochromasia Marked; MCH 28.5 pg (25.0-35.0); Mean Platelet Volume 8.6; Platelet Count 465 k/uL (150-450); RBC 3.74 m/uL (3.80-5.40); RDW 16.3 % (11.5-15.5); WBC 17.7 k/uL (3.8-10.6)
[2020-10-20] MEDS ORDERED: ERGOCALCIFEROL 50,000 UNIT CAP PO SCH (09:00)
[2020-10-20] MEDS: METOPROLOL TARTRATE 25 MG TAB PO SCH ×2 (09:14→20:45)
[2020-10-20] MEDS: PREGABALIN 75 MG CAP PO SCH ×2 (09:14→20:45)
[2020-10-20] MEDS: VERAPAMIL SR 240 MG TABLET.ER PO SCH (09:14)
[2020-10-20] MEDS: DULoxetine HCL 60 MG CAPSULE.DR PO SCH (09:14)
[2020-10-20 10:24] LABS: Eosinophils # (M) 0.18 k/uL (0-0.7); Lymphocytes # (M) 1.24 k/uL (1.0-4.8); Monocytes # (M) 1.06 k/uL (0-1.0); Neutrophils # (M) 15.22 k/uL (1.3-7.7); Neutrophils % (M) 86 %; Nucleated Red Blood Cells 0 /100 WBC (0-0); Total Cells Counted 100
--- NOTE | 2020-10-20 17:40 | P.PN ---
Progress Note - Text Progress Note Date: 10/20/20 Chief Complaint: Pus drainage History of presenting complaint: This is a pleasant 60-year-old patient of Dr. Isaiah Farris. Chronic stable medical conditions include hyperlipidemia, hypertension, lumbar DJD, fibromyalgia, MS, ulcerative colitis. Patient 2 weeks ago fell and hurt her anterior chest wall when she fell against a CD rack. Current tired anterior chest wall heart without able to move her arms for some time because of pain. She noticed painful bumps in both the armpits. And came to the ER. Overnight large amount of pus drained. Ultrasound of the breast showed 2 distinct masses one being hypoechoic with hyperemia continue was in the axilla skin. Bilateral axillary lymph nodes were also positive. No fever no chills. Patient appetite has been down. Has lost some weight. Some more pus drained this morning. Patient is admitted with the wart is now felt to be infected hematoma resulting from a fall and incidental discovery of underlying breast mass with lymph node involvement. Patient is on IV Ancef. Today-still draining some. Pain is better. No fever no chills. Appetite is good. Has been out of bed. Review of systems: Was done for constitutional, cardiovascular, GI, pulmonary. relevant finding as above Active Medications Acetam/Butalbital/Caffeine/Codeine (Buta/Apap/Caf/Cod 31-605-30-30 Cap) 1 each PO TID PRN PRN Reason: Migraine Headache Acetaminophen (Acetaminophen Tab 325 Mg Tab) 650 mg PO Q6HR PRN PRN Reason: Mild Pain or Fever > 100.5 Acetaminophen (Acetaminophen Tab 325 Mg Tab) 650 mg PO Q6HR PRN PRN Reason: Mild Pain or Fever > 100.5 Hydrocodone Bitart/Acetaminophen (Hydrocodone/Apap 10-325mg 1 Each Tab) 1 each PO QID PRN PRN Reason: Pain Last Admin: 10/20/20 13:21 Dose: 1 each Documented by: Albuterol Sulfate (Albuterol Nebulized 2.5 Mg/3 Ml) 2.5 mg INHALATION Q4H PRN PRN Reason: Shortness Of Breath Albuterol/Ipratropium (Ipratropium-Albuterol 3 Ml Neb) 3 ml INHALATION RT-TID PRN PRN Reason: Shortness Of Breath Atorvastatin Calcium (Atorvastatin 80 Mg Tab) 80 mg PO HS [facility] Last Admin: 10/19/20 21:29 Dose: 80 mg Documented by: Baclofen (Baclofen 10 Mg Tab) 20 mg PO TID PRN PRN Reason: Muscle Pain Last Admin: 10/20/20 16:13 Dose: 20 mg Documented by: Clonazepam (Clonazepam 1 Mg Tab) 1 mg PO BID PRN PRN Reason: Anxiety Diphenoxylate HCl/Atropine (Diphenox-Atrop 2.5-0.025 Mg 1 Each Tab) 2 each PO QID PRN PRN Reason: Diarrhea Duloxetine HCl (Duloxetine Hcl 60 Mg Capsule.Dr) 60 mg PO DAILY [facility] Last Admin: 10/20/20 09:14 Dose: 60 mg Documented by: Enoxaparin Sodium (Enoxaparin 40 Mg/0.4 Ml Syringe) 40 mg SQ Q24H [facility] Last Admin: 10/19/20 21:29 Dose: 40 mg Documented by: Ergocalciferol (Ergocalciferol 50,000 Unit Cap) 50,000 unit PO KELLEY [facility] Last Admin: 10/20/20 09:14 Dose: 50,000 unit Documented by: Hydromorphone HCl (Hydromorphone 1 Mg/Ml 1 Ml Syringe) 1 mg IVP Q3HR PRN PRN Reason: Severe Pain Last Admin: 10/20/20 15:13 Dose: 1 mg Documented by: Sodium Chloride (Saline 0.9%) 1,000 mls @ 100 mls/hr IV .Q10H [facility] Last Admin: 10/20/20 00:44 Dose: 100 mls/hr Documented by: Cefazolin Sodium 2 gm/ Sodium (Chloride) 50 mls @ 100 mls/hr IVPB Q8HR [facility] Last Admin: 10/20/20 16:10 Dose: 100 mls/hr Documented by: Ibuprofen (Ibuprofen 400 Mg Tab) 400 mg PO Q6HR PRN PRN Reason: Mild Pain or Fever > 100.5 Last Admin: 10/20/20 09:18 Dose: 400 mg Documented by: Ketorolac Tromethamine (Ketorolac 15 Mg/Ml 1 Ml Vial) 15 mg IVP Q6HR PRN PRN Reason: Moderate Pain Stop: 10/21/20 22:34 Metoprolol Tartrate (Metoprolol Tartrate 25 Mg Tab) 25 mg PO BID [facility] Last Admin: 10/20/20 09:14 Dose: 25 mg Documented by: Modafinil (Modafinil 200 Mg Tab) 200 mg PO BID PRN PRN Reason: ALERTNESS Naloxone HCl (Naloxone 0.4 Mg/Ml 1 Ml Vial) 0.2 mg IV Q2M PRN PRN Reason: Opioid Reversal Ondansetron HCl (Ondansetron 4 Mg/2 Ml Vial) 4 mg IVP Q8HR PRN PRN Reason: Nausea And Vomiting Pregabalin (Pregabalin 75 Mg Cap) 150 mg PO BID [facility] Last Admin: 10/20/20 09:14 Dose: 150 mg Documented by: Tramadol HCl (Tramadol 50 Mg Tab) 50 mg PO TID PRN PRN Reason: Pain Verapamil HCl (Verapamil Sr 240 Mg Tablet.Er) 240 mg PO DAILY [facility] Last Admin: 10/20/20 09:14 Dose: 240 mg Documented by: Physical examination: VITAL SIGNS: 98.1, 79, 16, 114/64, 95% room air GENERAL: Laying in bed, not in distress EYES: Pupils equal. Conjunctiva normal. NECK: JVD not raised; masses not palpable. HEART: First and second heart sounds are normal; no edema. LUNGS: Respiratory rate normal; clear to auscultation. ABDOMEN: Soft, nontender, liver spleen not palpable, no masses palpable. PSYCH: Alert and oriented x3; mood and affect normal. LYMPHATICS: Possible lymph nodes in the axilla INVESTIGATIONS, reviewed in the clinical context: White count 7.7 hemoglobin 10.7 Wound culture-presumptive staph aureus Previous testing White count 18.6 hemoglobin 9.8 platelets 494 increased neutrophils potassium 4.2 bun 4 creatinine 0.59 Breast ultrasound-indeterminate 5 x 1.6 x 5.2 cm ovoid shaped it is no mass in the left breast at 11:08 AM corresponding to palpable lump. Additional 1.5 x 0.8 x 1.2 cm hypoechoic area with hyperemia in the left axilla that appears contiguous with the skin. Bilateral prominent axillary lymph nodes with index lesion measuring 1.2 x 0.5 x 0.8 cm on the left. CT chest-4.3 cm left breast lesion with tiny focus of gas and corresponds to ultrasound findings. Lungs-unchanged scattered multiple bilateral pulmonary nodules. Assessment: -There is an interesting mix of signs and symptoms. Patient did take a fall on her anterior chest about 2 weeks ago. Was having significant amount of pain and tenderness. Noticed painful bumps in both the armpits. Now presents with draining pus especially on the left side. Large amount of pus has been updated. It does appear patient may have an underlying breast cancer involving the lymph nodes and hematoma secondary to fall that got infected. That is not draining. Patient does have weight loss and loss of appetite. Cultures growing-staph aureus -Hyperlipidemia -Essential hypertension -Ulcerative colitis -Lumbar DJD and-fibromyalgia -MS -Anxiety depression otherwise specified Plan: Continue IV Ancef. Ultrasound-guided breast lump biopsy by interventional radiology. Care discussed with the patient. Other medications to follow.
[2020-10-20] MEDS: ATORVASTATIN 80 MG TAB PO SCH (20:45)
[2020-10-20] MEDS: ENOXAPARIN 40 MG/0.4 ML SYRINGE SQ SCH (20:45)
--- NOTE | 2020-10-20 23:03 | PN ---
PROGRESS NOTE DATE OF SERVICE: 10/20/2020 REASON FOR FOLLOWUP: Left breast and axillary abscess, staph aureus. INTERVAL COURSE: The patient is currently afebrile. The patient is breathing comfortably. Still complaining of pain to the left lateral side of her left breast. Still has some drainage. No chest pain or cough. No abdominal pain or diarrhea. PHYSICAL EXAMINATION: Her blood pressure is 120/75 pulse of 74, temperature 96.3. She is 97% on room air. General description is a middle-aged female lying in bed in no distress. RESPIRATORY SYSTEM: Unlabored breathing, clear to auscultation anteriorly. HEART: S1, S2. Regular rate and rhythm. ABDOMEN: Soft, no tenderness. LABS: Hemoglobin is 10.7, white count 17.7. Left breast culture with MSSA. Blood culture has been negative. DIAGNOSTIC IMPRESSION AND PLAN: Patient with left breast abscess and axillary abscess culture with MSSA. Patient is covered cefazolin 2 grams q.8 hours. Waiting for biopsy and possible drainage of this abscess. MMODL / IJN: [id number] /
[2020-10-21] MEDS: SODIUM CHLORIDE 0.9% 1,000 ML IV SCH ×4 (00:38→23:36)
[2020-10-21] MEDS: HYDROmorphone 1 MG/ML 1 ML SYRINGE IVP PRN ×4 (03:27→20:36)
[2020-10-21] MEDS: PREGABALIN 75 MG CAP PO SCH ×2 (08:11→20:36)
[2020-10-21] MEDS: DULoxetine HCL 60 MG CAPSULE.DR PO SCH (08:11)
[2020-10-21] MEDS: METOPROLOL TARTRATE 25 MG TAB PO SCH ×2 (08:11→20:36)
[2020-10-21] MEDS: VERAPAMIL SR 240 MG TABLET.ER PO SCH (08:12)
[2020-10-21] MEDS: HYDROcodone/APAP 10-325MG 1 EACH TAB PO PRN ×3 (08:15→23:34)
[2020-10-21 09:46] LABS: Prothrombin Time 10.4 sec (9.0-12.0)
--- NOTE | 2020-10-21 18:14 | USB ---
EXAMINATION TYPE: US breast needle core addl LT, US breast needle core LT DATE OF EXAM: 10/21/2020 HISTORY: Left breast abscess. Draining fluid from left axilla. Recent fall. PEDIATRIC HOSPITALIST: Dr. Heather Johnson PROCEDURE: Preliminary preprocedure ultrasound imaging redemonstrates a large indeterminate ovoid irregular mass of the left breast 11:00, corresponding to palpable lump. There is also hypoechoic region of the left axilla contiguous with the skin and draining fluid. The procedure was discussed with the patient. The risks, complications, benefits, and alternatives were discussed and any questions were answered. Informed consent was obtained. Patient was positioned supine. Maximal barrier technique was utilized. The skin overlying a suitable path to the left breast 11:00 mass and left axilla was localized using ultrasound, the skin was prepped and draped. Ultrasound was utilized with sterile technique. Initially targeting the 11:00 left breast mass, lidocaine was used for local anesthesia. A skin abril made with a scalpel. Under direct ultrasound guidance, a 17-gauge introducer needle was advanced into the left breast 11:00 mass, the stylet was removed, and 18-gauge core biopsy needle was advanced into the left breast mass and core biopsy obtained. 8 core biopsy specimens were obtained, and submitted in formalin for histopathology, as well as in saline for microbiology. Hemostasis was achieved. Subsequently targeting the left axilla hypoechoic lesion and draining fluid, a 25-gauge needle and 3 cc syringe was advanced into the hypoechoic area. No fluid was returned upon aspiration. Lidocaine was used for local anesthesia. A skin abril was made with a scalpel. Under direct ultrasound guidance, a 17-gauge introducer needle was advanced into the left axilla hypoechoic region, the stylet was removed, and the 18-gauge core biopsy needle was advanced into the lesion and one attempt at core biopsy was obtained. There is no appreciable soft tissue on the core biopsy sample. A 3 cc syringe was attached to the 17-gauge introducer needle, and a trace amount of aspirate was obtained, and submitted in formalin for histopathology, as well as saline for microbiology. Hemostasis was achieved. There was no immediate complication and patient remained in stable condition. Post procedure ultrasound imaging demonstrates no significant hemorrhage. IMPRESSION: 1. Status post ultrasound-guided 18-gauge core biopsy of the left breast 11:00 mass. 2. Status post aspiration of the left axilla hypoechoic collection. Pathology Results: Benign A. LEFT AXILLA, CORE BIOPSY: Fragments of inflamed granulation tissue, negative for malignancy. B. LEFT BREAST, CORE BIOPSY: Scar/fibrosis with inflammation, necrosis and inflamed granulation tissue. Negative for malignancy. Recommendation Follow up ultrasound of the left breast in 6 months. MTDD
[2020-10-21] MEDS: ENOXAPARIN 40 MG/0.4 ML SYRINGE SQ SCH (20:35)
[2020-10-21] MEDS: ATORVASTATIN 80 MG TAB PO SCH (20:36)
--- NOTE | 2020-10-21 22:08 | PN ---
PROGRESS NOTE DATE OF SERVICE: 10/21/2020 REASON FOR FOLLOWUP: Left breast abscess and bilateral axillary abscess and cellulitis. INTERVAL HISTORY: The patient is currently afebrile. She is breathing comfortably. Has been complaining of more drainage from her right axillary area today. Pain to the left breast is currently controlled. No nausea, no vomiting. No abdominal pain or diarrhea. PHYSICAL EXAMINATION: Blood pressure 114/70 with a pulse of 74, temperature 98. She is 96% on room air. General description is a middle-aged female lying in bed in no distress. RESPIRATORY SYSTEM: Unlabored breathing. Clear to auscultation anteriorly. HEART: S1, S2. Regular rate and rhythm. ABDOMEN: Soft. No tenderness. Right axillary area has some swelling, minimal drainage. Not foul-smelling. LABS: INR is 1.0. Blood culture negative. Local culture positive for MSSA. DIAGNOSTIC IMPRESSION AND PLAN: Patient with left breast abscess with left bilateral axillary lymphadenopathy in a patient who is status post biopsy. Results will be followed. Local culture was positive for MSSA. Patient is covered with cefazolin 2 grams q.8 hours. Continue supportive care. MMODL / IJN: [id number] /
--- NOTE | 2020-10-21 23:57 | P.PN ---
Progress Note - Text Progress Note Date: 10/21/20 Chief Complaint: Pus drainage History of presenting complaint: This is a pleasant 60-year-old patient of Dr. Isaiah Farris. Chronic stable medical conditions include hyperlipidemia, hypertension, lumbar DJD, fibromyalgia, MS, ulcerative colitis. Patient 2 weeks ago fell and hurt her anterior chest wall when she fell against a CD rack. Current tired anterior chest wall heart without able to move her arms for some time because of pain. She noticed painful bumps in both the armpits. And came to the ER. Overnight large amount of pus drained. Ultrasound of the breast showed 2 distinct masses one being hypoechoic with hyperemia continue was in the axilla skin. Bilateral axillary lymph nodes were also positive. No fever no chills. Patient appetite has been down. Has lost some weight. Some more pus drained this morning. Patient is admitted with the wart is now felt to be infected hematoma resulting from a fall and incidental discovery of underlying breast mass with lymph node involvement. Patient is on IV Ancef. Today-so the patient this morning. pending left breast biopsy.some pus drainage. Review of systems: Was done for constitutional, cardiovascular, GI, pulmonary. relevant finding as above Active Medications Acetam/Butalbital/Caffeine/Codeine (Buta/Apap/Caf/Cod 47-672-88-30 Cap) 1 each PO TID PRN PRN Reason: Migraine Headache Acetaminophen (Acetaminophen Tab 325 Mg Tab) 650 mg PO Q6HR PRN PRN Reason: Mild Pain or Fever > 100.5 Acetaminophen (Acetaminophen Tab 325 Mg Tab) 650 mg PO Q6HR PRN PRN Reason: Mild Pain or Fever > 100.5 Hydrocodone Bitart/Acetaminophen (Hydrocodone/Apap 10-325mg 1 Each Tab) 1 each PO QID PRN PRN Reason: Pain Last Admin: 10/21/20 23:34 Dose: 1 each Documented by: Albuterol Sulfate (Albuterol Nebulized 2.5 Mg/3 Ml) 2.5 mg INHALATION Q4H PRN PRN Reason: Shortness Of Breath Albuterol/Ipratropium (Ipratropium-Albuterol 3 Ml Neb) 3 ml INHALATION RT-TID PRN PRN Reason: Shortness Of Breath Atorvastatin Calcium (Atorvastatin 80 Mg Tab) 80 mg PO HS [facility] Last Admin: 10/21/20 20:36 Dose: 80 mg Documented by: Baclofen (Baclofen 10 Mg Tab) 20 mg PO TID PRN PRN Reason: Muscle Pain Last Admin: 10/20/20 16:13 Dose: 20 mg Documented by: Clonazepam (Clonazepam 1 Mg Tab) 1 mg PO BID PRN PRN Reason: Anxiety Diphenoxylate HCl/Atropine (Diphenox-Atrop 2.5-0.025 Mg 1 Each Tab) 2 each PO QID PRN PRN Reason: Diarrhea Duloxetine HCl (Duloxetine Hcl 60 Mg Capsule.Dr) 60 mg PO DAILY [facility] Last Admin: 10/21/20 08:11 Dose: 60 mg Documented by: Enoxaparin Sodium (Enoxaparin 40 Mg/0.4 Ml Syringe) 40 mg SQ Q24H [facility] Last Admin: 10/21/20 20:35 Dose: 40 mg Documented by: Ergocalciferol (Ergocalciferol 50,000 Unit Cap) 50,000 unit PO KELLEY [facility] Last Admin: 10/20/20 09:14 Dose: 50,000 unit Documented by: Hydromorphone HCl (Hydromorphone 1 Mg/Ml 1 Ml Syringe) 1 mg IVP Q3HR PRN PRN Reason: Severe Pain Last Admin: 10/21/20 20:36 Dose: 1 mg Documented by: Sodium Chloride (Saline 0.9%) 1,000 mls @ 100 mls/hr IV .Q10H [facility] Last Admin: 10/21/20 23:36 Dose: 100 mls/hr Documented by: Cefazolin Sodium 2 gm/ Sodium (Chloride) 50 mls @ 100 mls/hr IVPB Q8HR [facility] Last Admin: 10/21/20 23:35 Dose: 100 mls/hr Documented by: Ibuprofen (Ibuprofen 400 Mg Tab) 400 mg PO Q6HR PRN PRN Reason: Mild Pain or Fever > 100.5 Last Admin: 10/20/20 09:18 Dose: 400 mg Documented by: Metoprolol Tartrate (Metoprolol Tartrate 25 Mg Tab) 25 mg PO BID [facility] Last Admin: 10/21/20 20:36 Dose: 25 mg Documented by: Modafinil (Modafinil 200 Mg Tab) 200 mg PO BID PRN PRN Reason: ALERTNESS Naloxone HCl (Naloxone 0.4 Mg/Ml 1 Ml Vial) 0.2 mg IV Q2M PRN PRN Reason: Opioid Reversal Ondansetron HCl (Ondansetron 4 Mg/2 Ml Vial) 4 mg IVP Q8HR PRN PRN Reason: Nausea And Vomiting Pregabalin (Pregabalin 75 Mg Cap) 150 mg PO BID [facility] Last Admin: 10/21/20 20:36 Dose: 150 mg Documented by: Tramadol HCl (Tramadol 50 Mg Tab) 50 mg PO TID PRN PRN Reason: Pain Verapamil HCl (Verapamil Sr 240 Mg Tablet.Er) 240 mg PO DAILY [facility] Last Admin: 10/21/20 08:12 Dose: 240 mg Documented by: Physical examination: VITAL SIGNS: 96.8, 84, 16, 151 with 69, 96% room air GENERAL: Laying in bed, not in distress EYES: Pupils equal. Conjunctiva normal. NECK: JVD not raised; masses not palpable. HEART: First and second heart sounds are normal; no edema. LUNGS: Respiratory rate normal; clear to auscultation. ABDOMEN: Soft, nontender, liver spleen not palpable, no masses palpable. PSYCH: Alert and oriented x3; mood and affect normal. LYMPHATICS: Possible lymph nodes in the axilla INVESTIGATIONS, reviewed in the clinical context: White count 7.7 hemoglobin 10.7 Wound culture-MSSA. Previous testing White count 18.6 hemoglobin 9.8 platelets 494 increased neutrophils potassium 4.2 bun 4 creatinine 0.59 Breast ultrasound-indeterminate 5 x 1.6 x 5.2 cm ovoid shaped it is no mass in the left breast at 11:08 AM corresponding to palpable lump. Additional 1.5 x 0.8 x 1.2 cm hypoechoic area with hyperemia in the left axilla that appears contiguous with the skin. Bilateral prominent axillary lymph nodes with index lesion measuring 1.2 x 0.5 x 0.8 cm on the left. CT chest-4.3 cm left breast lesion with tiny focus of gas and corresponds to ultrasound findings. Lungs-unchanged scattered multiple bilateral pulmonary nodules. Assessment: -There is an interesting mix of signs and symptoms. Patient did take a fall on her anterior chest about 2 weeks ago. Was having significant amount of pain and tenderness. Noticed painful bumps in both the armpits. Now presents with draining pus especially on the left side. Large amount of pus has been updated. It does appear patient may have an underlying breast cancer involving the lymph nodes and hematoma secondary to fall that got infected. That is not draining. Patient does have weight loss and loss of appetite. Cultures growing-MSSA -Hyperlipidemia -Essential hypertension -Ulcerative colitis -Lumbar DJD and-fibromyalgia -MS -Anxiety depression otherwise specified Plan: Continue IV Ancef. Ultrasound-guided breast lump biopsy by interventional radiology-was later done today..
[2020-10-22 09:29] VITALS: BP 134/77; PULSE 71; RESP 16; TEMP 97.4
[2020-10-22] MEDS: PREGABALIN 75 MG CAP PO SCH (09:36)
[2020-10-22] MEDS: DULoxetine HCL 60 MG CAPSULE.DR PO SCH (09:36)
[2020-10-22] MEDS: HYDROmorphone 1 MG/ML 1 ML SYRINGE IVP PRN (09:36)
[2020-10-22] MEDS: METOPROLOL TARTRATE 25 MG TAB PO SCH (09:36)
[2020-10-22] MEDS: VERAPAMIL SR 240 MG TABLET.ER PO SCH (09:39)
--- NOTE | 2020-10-22 10:16 | P.PN ---
Subjective Progress Note Date: 10/22/20 Principal diagnosis: Left breast mass/ ? abscess Kaci is a 60-year-old white female admitted through the emergency room with a complaint of painful left breast mass and bilateral axillary adenopathy, with some purulent drainage from the axillary area on the left. The patient states that approximately 2 weeks ago she fell hitting her left chest. The lesion on the left breast was initially seen was very firm and not amiable to drainage. The patient had a computed tomography scan done and this was reviewed with radiology as well as her ultrasound and it was not certain there is anything which could be drained. She underwent a core biopsy of both the left breast mass and left axillary node on 10-21-20. Discussion with the radiologist did not feel that the lesion in the left breast was consistent with a hematoma, as the patient seemed to be more solid 48-colored tissue more consistent with a malignancy. This morning the area in the breast appears to be slightly less firm. Pathology is pending. Her computed tomography scan, and ultrasound were reviewed with Dr. Villatoro from radiology, as well as comparison of the computed tomography scan performed in July 2020. Of importance is the fact that in July 2020 she did not have a mass in the left breast and the mass seems to have occurred after a traumatic fall. This would be more indicative of an infected process although the biopsy did not reveal findings consistent with hematoma, we are awaiting the pathology. Objective - Vital Signs Vital signs: Vital Signs Temp 97.4 F L 10/22/20 09:00 Pulse 71 10/22/20 09:00 Resp 16 10/22/20 09:00 BP 134/77 10/22/20 09:00 Pulse Ox 95 10/22/20 09:00 Intake & Output 10/21/20 10/22/20 10/22/20 18:59 06:59 18:59 Intake Total 360 950 Balance 360 950 Intake: Intake, IV Titration 350 Amount Sodium Chloride 0.9% 1, 300 000 ml @ 100 mls/hr IV . Q10H [facility] Rx#:[id number] ceFAZolin 2 gm In Sodium 50 Chloride 0.9% 50 ml @ 100 mls/hr IVPB Q8HR [facility] Rx# :[id number] Oral 360 600 Other: Voiding Method Toilet Toilet # Voids 1 2 1 - Constitutional General appearance: Present: average body habitus - EENT Eyes: Present: EOMI ENT: Present: hearing grossly normal - Neck Neck: Present: normal ROM - Respiratory Respiratory: bilateral: CTA - Cardiovascular Heart sounds: normal: S1, S2 - Integumentary Integumentary Comment(s): Mass left breast approximately 10 cm x 10 cm, there are some cellulitic changes over the surface, no fluctuance palpated, but appears to be slightly softer than when initially presented Left axillary region has adenopathy with some drainage of seropurulent fluid Right axillary adenopathy with some purulent discharge on the surface - Labs CBC & Chem 7: 10/20/20 07:35 10/18/20 20:27 Labs: Microbiology - Last 24 Hours (Table) 10/18/20 20:27 Blood Culture - Preliminary Blood No Growth after 72 hours Assessment and Plan Assessment: Impression: 1. 60-year-old white female with recent onset bilateral axillary fullness and mass in left breast/concern as to whether this is a infectious process or an infected cancer 2. No fluctuant area on today's exam which would warrant itself to drainage in the operating room 3. History of MS 4. History of ulcerative colitis 5. Anxiety/depression 6. Family history of breast cancer 7. Cultures positive for staph Plan: 1. awaiting results of ultrasound core biopsy of left breast mass and axillary mass, if this appears to be a necrotic breast cancer would consult medical oncology 2. At this time there is nothing fluctuant to miki in the operating room 4. IV antibiotics 5. I will follow with you 6. Consider I&D in the operating room depending on results of core biopsy This and benefits of I&D in the operating room were discussed with the patient. She understands and if necessary wishes to proceed, depending on results of pathology tomorrow further recommendation will be made. CC: Dr. Farris, Dr. Perea encounter 30 minutes > 50% of time in planning and counselling
[2020-10-22] MEDS: HYDROcodone/APAP 10-325MG 1 EACH TAB PO PRN (10:48)
--- NOTE | 2020-10-22 14:07 | PN ---
PROGRESS NOTE DATE OF SERVICE: 10/22/2020 REASON FOR FOLLOWUP: Left breast abscess cellulitis and bilateral alveolar pneumonitis. INTERVAL HISTORY: The patient is currently afebrile. The patient is currently dressed up and mentioned she is ready to go home. The patient denies having any chest pain or shortness of breath or cough. Overall pain is controlled and has decreased. No nausea, no vomiting. No abdominal pain, no diarrhea. PHYSICAL EXAMINATION: General description is a middle-aged female up in the bed, in no distress. RESPIRATORY SYSTEM: Unlabored breathing,, decreased breath sounds, no wheeze. HEART: S1, S2. Regular rate and rhythm. ABDOMEN: Soft, no tenderness. LABS: No new labs have been obtained today. Wound culture MSSA, blood culture negative. DIAGNOSTIC IMPRESSION AND PLAN: Patient with left breast abscess cellulitis and bilateral axillary lymphadenopathy. Patient has been cleared for discharge by Surgery with followup in the office next Wednesday. Antibiotic has been switched to oral Keflex. Continue and monitor clinical course closely. MMODL / IJN: [id number] /
--- NOTE | 2020-10-22 23:02 | P.DS ---
Providers Date of admission: 10/19/20 14:33 Expected date of discharge: 10/22/20 Attending physician: David Perea Consults: 10/18/20 22:33 Consult Physician Stat Consulting Provider: Farzana Raman Consult Reason/Comments: L breast mass, abscess Do you want consulting provider notified?: Yes 10/19/20 11:15 Consult Physician Routine Consulting Provider: Reggie Lanier Consult Reason/Comments: left breast abcess/infection Do you want consulting provider notified?: Yes Primary care physician: Ronny Farris [facility] Course: Chief Complaint: Pus drainage History of presenting complaint: This is a pleasant 60-year-old patient of Dr. Isaiah Farris. Chronic stable medical conditions include hyperlipidemia, hypertension, lumbar DJD, fibr omyalgia, MS, ulcerative colitis. Patient 2 weeks ago fell and hurt her anterior chest wall when she fell against a CD rack. Current tired anterior chest wall heart without able to move her arms for some time because of pain. She noticed painful bumps in both the armpits. And came to the ER. Overnight large amount of pus drained. Ultrasound of the breast showed 2 distinct masses one being hypoechoic with hyperemia continue was in the axilla skin. Bilateral axillary lymph nodes were also positive. No fever no chills. Patient appetite has been down. Has lost some weight. Some more pus drained this morning. Patient is admitted with the wart is now felt to be infected hematoma resulting from a fall and incidental discovery of underlying breast mass with lymph node involvement. Patient is on IV Ancef.cultures just grew MSSA. interventional radiologist to try to get a biopsy. Results will be back to following Wednesday. Discussed with Dr. Cookie Cornell 4. Patient to be discharged home. On antibiotics. To return at that is worsening fever or increase in pus. Warm compresses to continue. Patient be seen in the breast clinic next Wednesday. And further plan from there. Discussion and discharge planning more than 35 minutes Consultation: Dr. Mu figueroa-breast surgeon Physical examination: VITAL SIGNS: 97.4, 71, 16, 134 x 77, 95% room air GENERAL: Laying in bed, not in distress EYES: Pupils equal. Conjunctiva normal. NECK: JVD not raised; masses not palpable. HEART: First and second heart sounds are normal; no edema. LUNGS: Respiratory rate normal; clear to auscultation. ABDOMEN: Soft, nontender, liver spleen not palpable, no masses palpable. PSYCH: Alert and oriented x3; mood and affect normal. LYMPHATICS: Possible lymph nodes in the axilla Left breast mass INVESTIGATIONS, reviewed in the clinical context: White count 17.7 hemoglobin 10.7 Wound culture-MSSA. Previous testing White count 18.6 hemoglobin 9.8 platelets 494 increased neutrophils potassium 4.2 bun 4 creatinine 0.59 Breast ultrasound-indeterminate 5 x 1.6 x 5.2 cm ovoid shaped it is no mass in the left breast at 11:08 AM corresponding to palpable lump. Additional 1.5 x 0.8 x 1.2 cm hypoechoic area with hyperemia in the left axilla that appears contiguous with the skin. Bilateral prominent axillary lymph nodes with index lesion measuring 1.2 x 0.5 x 0.8 cm on the left. CT chest-4.3 cm left breast lesion with tiny focus of gas and corresponds to ultrasound findings. Lungs-unchanged scattered multiple bilateral pulmonary nodules. Assessment: -There is an interesting mix of signs and symptoms. Patient did take a fall on her anterior chest about 2 weeks ago. Was having significant amount of pain and tenderness. Noticed painful bumps in both the armpits. Now presents with draining pus especially on the left side. Large amount of pus has been updated. It does appear patient may have an underlying breast cancer involving the lymph nodes and hematoma secondary to fall that got infected. That is not draining. Patient does have weight loss and loss of appetite. Cultures growing-MSSA. Biopsy has been done. Pending. -Hyperlipidemia -Essential hypertension -Ulcerative colitis -Lumbar DJD and-fibromyalgia -MS -Anxiety depression otherwise specified disposition: Home Patient Condition at Discharge: Stable Plan - Discharge Summary Discharge Rx Participant: No New Discharge Prescriptions: New Cephalexin [Keflex] 500 mg PO Q6HR #40 cap Continue clonazePAM [Clonazepam] 1 mg PO BID PRN PRN Reason: Anxiety Diphenox-Atrop 2.5-0.025 mg [Lomotil] 1 - 2 tab PO QID PRN PRN Reason: Diarrhea Baclofen [Lioresal] 20 mg PO TID PRN PRN Reason: Muscle Pain Pregabalin [Lyrica] 150 mg PO BID Buta/APAP/Caf/Cod 06-250-12-30 [Fioricet w/Cod 93-403-77-30MG] 1 tab PO TID PRN PRN Reason: Migraine Headache traMADol HCl [Ultram] 50 mg PO TID PRN PRN Reason: Pain Verapamil HCl [Verapamil ER] 240 mg PO DAILY HYDROcodone/APAP 10-325MG [Canton 10-325] 1 tab PO QID PRN PRN Reason: Pain modafiniL [Provigil] 200 mg PO BID PRN PRN Reason: ALERTNESS Metoprolol Tartrate 25 mg PO BID Ergocalciferol (Vitamin D2) [Drisdol] 50,000 unit PO KELLEY Albuterol Inhaler [Ventolin Hfa Inhaler] 2 puff INHALATION RT-Q4H PRN PRN Reason: Shortness Of Breath Albuterol Nebulized [Ventolin Nebulized] 2.5 mg INHALATION RT-TID PRN PRN Reason: Shortness Of Breath DULoxetine HCL [Cymbalta] 60 mg PO DAILY Atorvastatin Calcium [Lipitor] 80 mg PO HS Ipratropium-Albuterol Nebulize [Duoneb 0.5 mg-3 mg/3 ml Soln] 3 ml INHALATION RT-TID PRN PRN Reason: Shortness Of Breath Acetaminophen Tab [Tylenol] 650 mg PO Q6HR PRN tab PRN Reason: Mild Pain Or Fever > 100.5 Discharge Medication List Baclofen [Lioresal] 20 mg PO TID PRN 12/10/14 [History] Buta/APAP/Caf/Cod 17-263-72-30 [Fioricet w/Cod 78-384-96-30MG] 1 tab PO TID PRN 12/10/14 [History] Diphenox-Atrop 2.5-0.025 mg [Lomotil] 1 - 2 tab PO QID PRN 12/10/14 [History] Pregabalin [Lyrica] 150 mg PO BID 12/10/14 [History] Verapamil HCl [Verapamil ER] 240 mg PO DAILY 12/10/14 [History] clonazePAM [Clonazepam] 1 mg PO BID PRN 12/10/14 [History] traMADol HCl [Ultram] 50 mg PO TID PRN 12/10/14 [History] HYDROcodone/APAP 10-325MG [Canton 10-325] 1 tab PO QID PRN 09/22/15 [History] Albuterol Inhaler [Ventolin Hfa Inhaler] 2 puff INHALATION RT-Q4H PRN 07/01/20 [History] Albuterol Nebulized [Ventolin Nebulized] 2.5 mg INHALATION RT-TID PRN 07/01/20 [History] DULoxetine HCL [Cymbalta] 60 mg PO DAILY 07/01/20 [History] Ergocalciferol (Vitamin D2) [Drisdol] 50,000 unit PO KELLEY 07/01/20 [History] Metoprolol Tartrate 25 mg PO BID 07/01/20 [History] modafiniL [Provigil] 200 mg PO BID PRN 07/01/20 [History] Atorvastatin Calcium [Lipitor] 80 mg PO HS 08/23/20 [History] Ipratropium-Albuterol Nebulize [Duoneb 0.5 mg-3 mg/3 ml Soln] 3 ml INHALATION RT-TID PRN 08/23/20 [History] Acetaminophen Tab [Tylenol] 650 mg PO Q6HR PRN tab 08/30/20 [Rx] Cephalexin [Keflex] 500 mg PO Q6HR #40 cap 10/22/20 [Rx] Follow up Appointment(s)/Referral(s): Farzana Raman MD [STAFF PHYSICIAN] - 10/29/20 8:00 am (Appointment made for 10/29/20 @ 8:00 am at [facility] with Dr Raman ) Farzana Keating PAC [REFERRING] - 10/25/20 11:30 am (appointment made for 10/25/20 at 11:30am) Patient Instructions/Handouts: Fine Needle Aspiration Biopsy (DC)
--- NOTE | 2020-10-25 06:13 | CDI ---
Documentation Clarification Form Date: 10/25/2020 06:00:00 AM From: Tanya Moreno Phone: To: Tanya Moreno If you have a question about this query, please contact [facility] [employer] [facility] [employer] at [phone] between 8am and 5pm. Admit Date: 10/19/2020 02:33:00 PM Patient Name: Kaci Daley Visit Number: [id number] Discharge Date: 10/22/2020 01:51:00 PM ATTENTION: The Clinical Documentation Specialists (CDI) and [facility] Coding Staff appreciate your assistance in clarifying documentation. Please respond to the clarification below the line at the bottom and electronically sign. The CDI & [facility] Coding staff will review the response and follow-up if needed. Please note: Queries are made part of the Legal Health Record. If you have any questions, please contact the author of this message via ITS. Dr. David Perea Your patient has the documented diagnosis of abscess and cellulitis left breast and axilla lymph nodes and diabetes documented throughout the chart. Please clarify if there is a link between the patients Lt breast abscess / cellulitis and lymphandenopathy and diabetes. A relationship between diagnoses cannot be assumed unless documented as such by the attending physician. In order to capture the severity of condition; please document the relationship, if any, between these diagnoses. History/Risk Factors: Recent fall, patient developed breast mass and lymphadenopathy axilla which proved to be an abscess. Clinical Indicators: Patient with DM and abscess cellulitis, lymphadenopathy Treatment: Cefazolin and drainage and biopsy Please clarify if any relationship between abscess cellulitis breast and diabetes exists between these two diagnoses. Please include clinical findings supporting your diagnosis. Abscess cellulitis due to DM Abscess Cellulitis not due to DM Other explanation of clinical findings (please specify) Unable to determine (no explanation for clinical findings) Abscess cellulitis not due to diabetes mellitus MTDD
== END 2020-10-22 13:51 | disposition home or self-care (01) | DRG 600 ==
LOC: EC 18:28 → 1SOBS 22:53 → OBSVTOIN 10-19 14:33
PROVIDERS: ADMIT Hospitalist; ATTEND Hospitalist
DX: N61.1 Abscess of the breast and nipple (principal); J18.9 Pneumonia, unspecified organism; J44.0 Chronic obstructive pulmonary disease with (acute) lower respiratory infection; J44.1 Chronic obstructive pulmonary disease with (acute) exacerbation; K51.90 Ulcerative colitis, unspecified, without complications; M79.7 Fibromyalgia; M81.0 Age-related osteoporosis without current pathological fracture; M47.816 Spondylosis without myelopathy or radiculopathy, lumbar region; W01.190D Fall on same level from slipping, tripping and stumbling with subsequent striking against furniture, subsequent encounter; B95.8 Unspecified staphylococcus as the cause of diseases classified elsewhere; E11.9 Type 2 diabetes mellitus without complications; E78.5 Hyperlipidemia, unspecified; F17.210 Nicotine dependence, cigarettes, uncomplicated; F41.8 Other specified anxiety disorders; G47.33 Obstructive sleep apnea (adult) (pediatric); I10 Essential (primary) hypertension; K21.9 Gastro-esophageal reflux disease without esophagitis; L04.2 Acute lymphadenitis of upper limb; N61.0 Mastitis without abscess; Z79.51 Long term (current) use of inhaled steroids; Z79.899 Other long term (current) drug therapy; Z80.3 Family history of malignant neoplasm of breast; Z82.5 Family history of asthma and other chronic lower respiratory diseases; G43.909 Migraine, unspecified, not intractable, without status migrainosus; M51.36 Other intervertebral disc degeneration, lumbar region; M47.812 Spondylosis without myelopathy or radiculopathy, cervical region; Z85.41 Personal history of malignant neoplasm of cervix uteri; Z98.51 Tubal ligation status; G35 Multiple sclerosis; Z98.84 Bariatric surgery status
CPT/HCPCS: 19084; 36415; 71260; 80053; 83605; 85025; 85610; 87040; 87070; 87075; 87077; 87102; 87186; 87205; 88305; 96361; 96372; 96374; 96375; 99285

== ENCOUNTER → 2020-10-29 | Outpatient (CLI) | payer OTHER ==
[2020-10-29 08:15] VITALS: BP 126/80; PULSE 70; RESP 16; TEMP 98.2
--- NOTE | 2020-10-29 16:55 | P.PN ---
Progress Note - Text Progress Note Date: 10/29/20 The patient is seen this morning regarding left breast core biopsy. Pathology was consistent with inflammation and no evidence of malignancy in the breast or lymph node. The patient states that the area has decreased in size and swelling. She has not had any fever or chills. On examination the area is not fluctuant. In attempts to aspirate the area was performed after consent was obtained from the patient. Attempted aspiration of left breast mass. The area of concern was prepped using alcohol. Lidocaine was used to anesthetize the skin. An 18-gauge needle 100 mL syringe was inserted into the mass. The mass was nonfluctuant. The mass was approximately 10 x 10 cm. There is no evidence of any purulent fluid which could be aspirated. There was not felt that there was anything which could be drained in the operating room at this time. After discussion with the patient she opted to continue antibiotics and will be reevaluated in 3 days. If she develops any fever or chills she will be seen immediately. It should be noted the area under both arms has decreased fullness and is not draining at this time.
== END | disposition home or self-care (01) ==
LOC: WWCWWP 07:59
PROVIDERS: ATTEND Surgery
DX: Z53.9 Procedure and treatment not carried out, unspecified reason (principal)

== ENCOUNTER → 2021-01-24 | Outpatient (CLI) | payer OTHER ==
[2021-01-24 23:18] LABS: Basophils # (A) 0.09 X 10*3/uL (0.00-0.10); Eosinophils # (A) 0.44 X 10*3/uL (0.04-0.35); HCT 34.1 % (37.2-46.3); HGB 10.5 g/dL (12.0-15.0); Lymphocytes # (A) 2.78 X 10*3/uL (0.90-5.00); Lymphocytes % (A) 31.4 %; MCH 29.7 pg (27.0-32.0); MCHC 30.8 g/dL (32.0-37.0); MCV 96.3 fL (80.0-97.0); Mean Platelet Volume 12.8 fL (9.5-12.2); Monocytes # (A) 0.75 X 10*3/uL (0.20-1.00); Monocytes % (A) 8.5 %; Neutrophils # (A) 4.76 X 10*3/uL (1.80-7.70); Neutrophils % (A) 53.9 %; Platelet Count 263 X 10*3/uL (140-440); RBC 3.54 X 10*6/uL (4.10-5.20); RDW 15.7 % (11.5-14.5); WBC 8.84 X 10*3/uL (4.50-10.00)
[2021-01-24 23:19] LABS: Reticulocyte % 1.22 % (0.10-1.80)
[2021-01-25 01:09] LABS: Hemoglobin A1C 5.8 % (4.0-6.0)
[2021-01-25 01:59] LABS: Follicle Stimulating Hormone 38.9 mIU/mL; Luteinizing Hormone 3.2 mIU/mL
[2021-01-25 02:15] LABS: % Iron Saturation 8.71 (12.00-45.00); African American GFR (CKD) 93.5 (60.0-200.0); Albumin/Globulin Ratio 1.48 (1.60-3.17); Anion Gap 5.9 mmol/L (4.00-12.00); BUN/Creat Ratio 17.5 Ratio (12.00-20.00); C Reactive Protein 0.5 mg/dL (0.0-0.8); Calcium 9.8 mg/dL (8.7-10.3); Carbon Dioxide 28.1 mmol/L (21.6-31.8); Globulin 2.7 g/dL (1.6-3.3); Non-African American GFR(CKD) 80.7 (60.0-200.0); Potassium 4.7 mmol/L (3.5-5.5); Total Bilirubin 0.2 mg/dL (0.3-1.2); Total Protein 6.7 g/dL (6.2-8.2)
[2021-01-25 02:24] LABS: T4, Free (Free Thyroxine) 1.2 ng/dL (0.80-1.80)
[2021-01-25 02:38] LABS: Ferritin 10.2 ng/mL (10.0-291.0)
[2021-01-25 04:10] LABS: HIV 2 AB Non-Reactive (Non-Reactive); HIV AB P24 Non-Reactive (Non-Reactive); HIV P24 AG Non-Reactive (Non-Reactive)
[2021-01-25 04:32] LABS: Hepatitis B Core IgM Non-Reactive (Non-Reactive); Hepatitis B Surface AB- Quant 3.5 mIU/mL; Hepatitis B Surface Antibody Non-Reactive (Non-Reactive); Hepatitis B Surface Antigen Non-Reactive (Non-Reactive)
[2021-01-27 05:45] LABS: Varicella IgM Antibody 0.34 INDEX (<=0.90)
[2021-01-28 07:28] LABS: Vit B1(Thiamine) 50 ug/L (38-122)
[2021-01-28 14:47] LABS: Growth Hormone, Human 0.4 ng/mL (<10)
[2021-01-29 12:29] LABS: Nicotinamide None Detected; Nicotinic Acid None Detected; Nicotinuric Acid None Detected
== END | disposition home or self-care (01) ==
LOC: LABWHC1 13:40
PROVIDERS: ATTEND Psychiatry & Neurology Pain Medicine
DX: G35 Multiple sclerosis (principal); R53.83 Other fatigue
CPT/HCPCS: 36415; 80053; 82306; 82533; 82550; 82607; 82626; 82668; 82728; 82746; 83001; 83002; 83003; 83036; 83540; 83550; 84146; 84207; 84305; 84425; 84439; 84443; 84466; 84481; 84591; 85025; 85045; 86140; 86704; 86705; 86706; 86787; 87340; 87390

== ENCOUNTER 2021-08-16 14:30 | Emergency (ER) | payer OTHER ==
[2021-08-16 14:37] VITALS: RESP 18; TEMP 98.2
[2021-08-16] MEDS ORDERED: SODIUM CHLORIDE 0.9% 1,000 ML IV STA (15:08)
[2021-08-16] MEDS ORDERED: MORPHINE SULFATE 4 MG/ML SYRINGE IVP STA (15:10)
[2021-08-16 15:20] LABS: Basophils # (A) 0.1 k/uL (0-0.2); Basophils % (A) 1 %; Eosinophils # (A) 0.4 k/uL (0-0.7); Eosinophils % (A) 5 %; HCT 41.3 % (34.0-46.0); HGB 13.7 gm/dL (11.4-16.0); Lymphocytes # (A) 0.9 k/uL (1.0-4.8); Lymphocytes % (A) 11 %; MCH 33.6 pg (25.0-35.0); MCHC 33.1 g/dL (31.0-37.0); MCV 101.7 fL (80.0-100.0); Mean Platelet Volume 9.6; Monocytes # (A) 0.8 k/uL (0-1.0); Monocytes % (A) 10 %; Neutrophils % (A) 72 %; Platelet Count 195 k/uL (150-450); RBC 4.06 m/uL (3.80-5.40); RDW 12.6 % (11.5-15.5); WBC 8.3 k/uL (3.8-10.6)
[2021-08-16 15:30] LABS: ALT 47 U/L (4-34); AST 36 U/L (14-36); African American GFR (CKD) >90 (>60 ml/min/1.73 sqM); Albumin 4.1 g/dL (3.5-5.0); Alkaline Phosphatase 119 U/L (38-126); Anion Gap 9 mmol/L; Blood Urea Nitrogen 15 mg/dL (7-17); Calcium 9.3 mg/dL (8.4-10.2); Carbon Dioxide 21 mmol/L (22-30); Chloride 109 mmol/L (98-107); Creatine Kinase 296 U/L (30-135); Glucose 100 mg/dL (74-99); Non-African American GFR(CKD) >90 (>60 ml/min/1.73 sqM); Potassium 4.1 mmol/L (3.5-5.1); Sodium 139 mmol/L (137-145); Total Bilirubin 0.5 mg/dL (0.2-1.3); Total Protein 6.6 g/dL (6.3-8.2)
[2021-08-16 15:32] LABS: INR 0.9 (<1.2); Partial Thromboplastin Time 22.6 sec (22.0-30.0)
--- NOTE | 2021-08-16 16:28 | CT ---
EXAMINATION TYPE: CT thor lumbar spine wo con DATE OF EXAM: 08/16/2021 COMPARISON: None HISTORY: Fall facial pain Back pain CT DLP: 804 mGycm Automated exposure control for dose reduction was used. Images obtained from the level of T1-S2 vertebra with no contrast. The thoracic and lumbar vertebra have fairly normal alignment. Disc spaces are normal for age. There is no compression fracture. Posterior elements are intact. There is no evidence of thoracic paraspina l mass. There are mild emphysematous changes at the lung apices. There is some reticular density in t he periphery of both lungs consistent with scarring. There is some thickening of the right major fiss ure. The visualized ribs appear intact. I see no focal bone destruction. Sacroiliac joints appear int act. IMPRESSION: No acute bony abnormality. There is mild degenerative disc narrowing at L5-S1. No fracture. COPD. Pulmonary fibrotic changes. Pleural scarring.
--- NOTE | 2021-08-16 16:30 | CT ---
EXAMINATION TYPE: CT facial bones wo con DATE OF EXAM: 08/16/2021 COMPARISON: None HISTORY: Fall facial pain Back pain CT DLP: 927 mGycm Automated exposure control for dose reduction was used. Images obtained from the bottom of the mandible to the top of the frontal sinuses with no contrast. The mandibular ring appears intact. Temporomandibular joints appear normal. Zygomatic arches appear n ormal. Nasal bone appears intact. Nasal bone deviation slightly to the right side. This is probably a n old injury. There is mucosal thickening in the maxillary sinuses and the ethmoid sinuses. There is frontal and sphenoid sinus mucosal thickening. The orbital margins are intact. There is no evidence of orbital blowout fracture. Maxilla is intact. There is no retro-orbital mass. IMPRESSION: No evidence of facial bone fracture. Pansinusitis.
--- NOTE | 2021-08-16 17:15 | CT ---
EXAMINATION TYPE: CT brain cspine wo con DATE OF EXAM: 08/16/2021 COMPARISON: CT brain 08/23/2020 HISTORY: Fall facial pain Back pain CT DLP: 927 mGycm Automated exposure control for dose reduction was used. There is mild cerebral atrophy. There is no mass effect nor midline shift. There is no sign of intrac ranial hemorrhage. The calvarium is intact. There is no evidence of cerebral edema. Skull base is int act. There is normal aeration of the mastoid sinuses. There is moderate mucosal thickening in the eth moid and maxillary sinuses. There is also some involvement of the frontal and sphenoid sinuses. The cervical vertebra show some straightening. There is mild anterior subluxation of C4 in relation t o C5 of 3 mm. There is no evidence of a fracture. Facet joints are intact. There is mild hypertrophic facet arthropathy. Prevertebral soft tissues are intact. IMPRESSION: Mild cerebral atrophy. Pansinusitis. No acute intracranial abnormality. No change in the brain. The s inusitis appears new compared to old exam. Cervical mild spondylotic changes. Degenerative minimal subluxation at C4-5. No fracture seen.
--- NOTE | 2021-08-16 17:45 | ED ---
General Adult HPI - General Chief complaint: Syncope Stated complaint: fall/KAYLA Time Seen by Provider: 08/16/21 14:41 Source: patient, EMS, RN notes reviewed, old records reviewed Mode of arrival: EMS - History of Present Illness Initial comments: Patient is a 61-year-old female with past medical history remarkable for MS who presents emergency Department following a syncopal episode at home. She syncopized from a squatting position. She is complaining of some left-sided rib pains as well as right-sided cheek pain. She does complain of right shoulder pain. She states she does have a history of syncopal episodes. She states that the single episode occurred at approximately 2 AM this morning, and she states she woke up at 8 AM. She states that when she does have episodes of syncope this is typical, waiting hours before awakening. She denies any amnesia to the event, nausea, vomiting. Denies any headaches. Denies being on blood thinners. Patient was vaccinated for COVID-19. She denies fevers. She does endorse rhinorrhea as well as a persistent cough. She is not on antibiotics at this time. She is no history COPD or asthma. Denies any chest pain other than left- sided rib pain that is inferior. She denies any abdominal pain, nausea, vomiting at this time. Denies any urinary complaints. Patient otherwise has no acute complaints at this time. She has chronic back pain which she is currently complaining of. Patient presents over concern for the syncopal episode as well as her persistent upper esterase symptoms. - Related Data Home Medications Medication Instructions Recorded Confirmed Baclofen [Lioresal] 20 mg PO TID PRN 12/10/14 08/16/21 Diphenox-Atrop 2.5-0.025 mg 1 - 2 tab PO QID PRN 12/10/14 08/16/21 [Lomotil] Verapamil HCl [Verapamil ER] 240 mg PO DAILY 12/10/14 08/16/21 clonazePAM [Clonazepam] 1 mg PO BID PRN 12/10/14 08/16/21 traMADol HCl [Ultram] 50 mg PO TID PRN 12/10/14 08/16/21 HYDROcodone/APAP 10-325MG [[place] 1 tab PO QID PRN 09/22/15 08/16/21 10-325] Ergocalciferol (Vitamin D2) 50,000 unit PO KELLEY 07/01/20 08/16/21 [Drisdol (50,000 Iu)] Metoprolol Tartrate 25 mg PO BID 07/01/20 08/16/21 modafiniL [Provigil] 200 mg PO BID PRN 07/01/20 08/16/21 Butalb/APAP/Caff 50-325-40Mg 1 tab PO BID PRN 08/16/21 08/16/21 [Fioricet 50-325-40] Donepezil HCl [Aricept] 10 mg PO DAILY 08/16/21 08/16/21 Ferrous Sulfate [Feosol] 325 mg PO BID 08/16/21 08/16/21 Pregabalin [Lyrica] 200 mg PO BID 08/16/21 08/16/21 Previous Rx's Medication Instructions Recorded Doxycycline Hyclate [Vibramycin] 100 mg PO BID 7 Days #14 cap 08/16/21 Allergies Allergy/AdvReac Type Severity Reaction Status Date / Time No Known Allergies Allergy Verified 10/29/20 08:10 Review of Systems ROS Statement: Those systems with pertinent positive or pertinent negative responses have been documented in the HPI. Review of Systems: CONST: Denies fever EYES: Denies blurry vision ENT: Endorses nasal congestion. Endorses cough C/V: Denies Chest pain RESP: Denies shortness of breath GI: Denies abdominal pain : Denies dysuria SKIN: Denies rash. MSK: Endorses right shoulder pain, back pain, rib pain NEURO: Denies headache ROS Other: All systems not noted in ROS Statement are negative. Past Medical History Past Medical History: Hyperlipidemia, Hypertension, Musculoskeletal Disorder, Skin Disorder Additional Past Medical History / Comment(s): migraines, ulcerative colitis, lumbar degenerative disc, fibromyalgia, MS, recent admission for left breast abscess, daily drsg. changes, still having some drng., fell day before d/c & hurt tailbone History of Any Multi-Drug Resistant Organisms: None Reported Past Surgical History: Tubal Ligation Additional Past Surgical History / Comment(s): fx femurs, facial surgery, deviated septum, AJITH and RFA to neck and back Past Anesthesia/Blood Transfusion Reactions: No Reported Reaction Past Psychological History: Anxiety, Depression Smoking Status: Former smoker Past Alcohol Use History: Rare Past Drug Use History: None Reported - Past Family History Sister(s) Family Medical History: Cancer Additional Family Medical History / Comment(s): breast General Exam - General Exam Comments Initial Comments: General: Appears in mild distress secondary to extremity pain. HEAD: Normal with no signs of head trauma. Skull has no step-offs or deformities. Negative polanco sign. Negative raccoon eyes. EYES: PERRLA, EOMI, conjunctiva normal, no discharge. Pupils are 3 mm bilaterally. ENT: Hearing grossly intact, normal oropharynx. Patient does have rhinorrhea. Tympanic membranes are within normal limits. Patient has some tenderness palpation over the right cheek at the site of the bruise. No obvious step-offs or deformities are palpated. RESPIRATORY: Clear breath sounds bilaterally. No wheezes, rales, or rhonchi. No increased work of breathing. C/V: Regular rate and rhythm. S1 and S2 auscultated, no edema, peripheral pulses 2+ and intact throughout ABD: Abd is soft, nontender, nondistended EXT: Patient is normal range of motion without any obvious deformity. She does have some tenderness to palpation over the lateral aspect of the right shoulder. Chest is tender to palpation over the anterior left inferior ribs. Pelvis is stable. Patient has diffuse midline cervical, thoracic, lumbar spine tenderness to palpation which she states is chronic but is uncertain if it is any worse than normal. SKIN: No rashes or lesions observed on exposed skin. NEURO: Alert and oriented 4. Course Vital Signs 08/16/21 08/16/21 14:32 18:52 Temperature 98.2 F Pulse Rate 81 92 Respiratory 18 18 Rate Blood Pressure 145/80 158/92 O2 Sat by Pulse 95 99 Oximetry Medical Decision Making - Medical Decision Making Based on the patient's presentation and physical exam, I'm concerned for cardiac etiology for her current symptoms. She also appears to have was likely a viral illness but I would like to the possibility of pneumonia. She fell from a low height, however has pain diffusely along her spine which may or may not be chronic per patient as well as some facial pain. She syncopized and was out for approximately 6 hours. Therefore we will obtain a CT head, C-spine, T-spine, L-spine. X-ray of her right shoulder and chest will be obtained. We will obtain a cardiac workup including EKG, troponin, basic labs. We will also obtain a d-dimer, as the patient has a low Wells score for PE, however she is having syncopal episodes and this one lasted a long time without any known etiology. She was in agreement this plan. We will give her 1 L fluid bolus as well as morphine for her pain. She'll be connected to continuous cardiac monitoring while she is here in the department. Patient's EKG showed a normal sinus rhythm without any signs of acute ischemia. Patient's lavatory studies are remarkable for a slightly elevated d-dimer of 0.67. Patient's ALT is slightly elevated to 47. Patient's creatinine kinase is slightly elevated to 296, and she is already receiving treatment with a 1 L fluid bolus. Troponin is negative. Patient's CT imaging revealed a normal head CT and cervical spine CT with no acute process. There are chronic changes seen in the cervical spine. Thoracic and lumbar spine CT shows chronic degenerative changes with no acute traumatic process. Patient's facial CT reveals no evidence of facial bone fracture with possible sinusitis. On reevaluation, I was able to clear the patient's cervical spine and removed her collar. I informed her of her elevated d-dimer and I would like to obtain a CT angiogram the chest to rule out pulmonary embolism. She was in agreement this plan. She states her pain is improved overall. We discussed at length her syncopal episodes and she states this is a recurring thing that occurs every few months. The only reason she presented today was over concern for her facial pain. She is seeing her doctor who has evaluated her for her syncopal episodes previously she states "does not seem concerned." Heart score is low. CT angiogram was negative for pulmonary was in. No signs of pneumonia at this time either. Patient's right shoulder x-ray was negative as well. COVID is negative. On reevaluation, I did discuss that she is likely experiencing sinusitis versus bronchitis for her current symptoms. She is not currently wheezing and I do not believe she has a COPD exacerbation at this time. Therefore she will be given doxycycline and discharged home with a prescription. She was in agreement this plan. She states her pain is improved. As this is a typical syncopal episode for her and she has multiple recurring syncopal episodes, I discussed the possibility of admission for cardiac evaluation but she states she can follow-up with her physician for cardiac evaluation on an outpatient basis. She never had chest pain. She was in agreement this plan. I believe this is reasonable at this time as well. I informed her the results of the negative CT imaging. I will provide the patient with a prescription for doxycycline twice a day for 7 days 100 mg. I instructed the patient to follow up with their PCP in the next 3 days. I explained that the patient should return to the emergency department if they experience any worsening symptoms. Strict return precautions were discussed with the patient. The patient expressed understanding of these instructions. I answered all questions that the patient had. The patient was discharged home in fair condition with their prescriptions and follow up information. - Lab Data Result diagrams: 08/16/21 14:43 08/16/21 14:43 Lab Results 08/16/21 08/16/21 08/16/21 Range/Units 14:43 14:43 14:43 WBC 8.3 (3.8-10.6) k/uL RBC 4.06 (3.80-5.40) m/uL Hgb 13.7 (11.4-16.0) gm/dL Hct 41.3 (34.0-46.0) % MCV 101.7 H (80.0-100.0) fL MCH 33.6 (25.0-35.0) pg MCHC 33.1 (31.0-37.0) g/dL RDW 12.6 (11.5-15.5) % Plt Count 195 (150-450) k/uL MPV 9.6 Neutrophils % 72 % Lymphocytes % 11 % Monocytes % 10 % Eosinophils % 5 % Basophils % 1 % Neutrophils # 6.0 (1.3-7.7) k/uL Lymphocytes # 0.9 L (1.0-4.8) k/uL Monocytes # 0.8 (0-1.0) k/uL Eosinophils # 0.4 (0-0.7) k/uL Basophils # 0.1 (0-0.2) k/uL PT 10.0 (9.0-12.0) sec INR 0.9 (<1.2) APTT 22.6 (22.0-30.0) sec D-Dimer 0.67 H (<0.60) mg/L FEU Sodium 139 (137-145) mmol/L Potassium 4.1 (3.5-5.1) mmol/L Chloride 109 H (98-107) mmol/L Carbon Dioxide 21 L (22-30) mmol/L Anion Gap 9 mmol/L BUN 15 (7-17) mg/dL Creatinine 0.67 (0.52-1.04) mg/dL Est GFR (CKD-EPI)AfAm >90 (>60 ml/min/1.73 sqM) Est GFR (CKD-EPI)NonAf >90 (>60 ml/min/1.73 sqM) Glucose 100 H (74-99) mg/dL Calcium 9.3 (8.4-10.2) mg/dL Magnesium 2.0 (1.6-2.3) mg/dL Total Bilirubin 0.5 (0.2-1.3) mg/dL AST 36 (14-36) U/L ALT 47 H (4-34) U/L Alkaline Phosphatase 119 (38-126) U/L Creatine Kinase 296 H (30-135) U/L Troponin I (0.000-0.034) ng/mL Total Protein 6.6 (6.3-8.2) g/dL Albumin 4.1 (3.5-5.0) g/dL Coronavirus (PCR) (Not Detectd) 08/16/21 08/16/21 Range/Units 14:43 18:15 WBC (3.8-10.6) k/uL RBC (3.80-5.40) m/uL Hgb (11.4-16.0) gm/dL Hct (34.0-46.0) % MCV (80.0-100.0) fL MCH (25.0-35.0) pg MCHC (31.0-37.0) g/dL RDW (11.5-15.5) % Plt Count (150-450) k/uL MPV Neutrophils % % Lymphocytes % % Monocytes % % Eosinophils % % Basophils % % Neutrophils # (1.3-7.7) k/uL Lymphocytes # (1.0-4.8) k/uL Monocytes # (0-1.0) k/uL Eosinophils # (0-0.7) k/uL Basophils # (0-0.2) k/uL PT (9.0-12.0) sec INR (<1.2) APTT (22.0-30.0) sec D-Dimer (<0.60) mg/L FEU Sodium (137-145) mmol/L Potassium (3.5-5.1) mmol/L Chloride (98-107) mmol/L Carbon Dioxide (22-30) mmol/L Anion Gap mmol/L BUN (7-17) mg/dL Creatinine (0.52-1.04) mg/dL Est GFR (CKD-EPI)AfAm (>60 ml/min/1.73 sqM) Est GFR (CKD-EPI)NonAf (>60 ml/min/1.73 sqM) Glucose (74-99) mg/dL Calcium (8.4-10.2) mg/dL Magnesium (1.6-2.3) mg/dL Total Bilirubin (0.2-1.3) mg/dL AST (14-36) U/L ALT (4-34) U/L Alkaline Phosphatase (38-126) U/L Creatine Kinase (30-135) U/L Troponin I <0.012 (0.000-0.034) ng/mL Total Protein (6.3-8.2) g/dL Albumin (3.5-5.0) g/dL Coronavirus (PCR) Not Detected (Not Detectd) - EKG Data -: EKG Interpreted by Me EKG Comments: 12-lead Electrocardiogram Interpretation Note EKG was reviewed and interpreted by myself. 12-lead ECG performed at 1443 is interpreted by me as revealing normal sinus rhythm at a rate of 73 beats per minute. [place] is normal. [place] interval is 130 ms, QRS duration is 86 seconds, QTC is 434 ms. . There were no ST or T wave abnormalities to suggest myocardial ischemia or injury. R wave progression across the precordium was satisfactory. By my interpretation this EKG is non-diagnostic for acute ischemia. Disposition Clinical Impression: Bronchitis, Syncope, Fall, Musculoskeletal pain, Facial contusion Disposition: HOME SELF-CARE Condition: Fair Instructions (If sedation given, give patient instructions): Syncope (ED), Acute Bronchitis (ED) Prescriptions: Doxycycline Hyclate [Vibramycin] 100 mg PO BID 7 Days #14 cap Is patient prescribed a controlled substance at d/c from ED?: No Referrals: Cm Joseph MD [Primary Care Provider] - 1-2 days
--- NOTE | 2021-08-16 18:23 | CT ---
EXAMINATION TYPE: CT chest angio for PE DATE OF EXAM: 08/16/2021 COMPARISON: 07/01/2020 HISTORY: positive d-dimer CT DLP: 226 mGycm Automated exposure control for dose reduction was used. CONTRAST: Performed with IV Contrast, patient injected with 100 mL of Isovue 370. Images obtained from the thoracic inlet to the diaphragm with IV contrast. There are 3-D post process ed images. There is some reticular interstitial density at the lung apices. There is minimal subsegmental atelec tasis and pleural thickening at the major fissures. Heart size is normal. There is no pericardial eff usion. There is hiatal hernia. There is no evidence of filling defect in the pulmonary arteries. There is no mediastinal adenopathy. Thoracic aorta is intact. There is no aneurysm or dissection. The bony thorax is intact. Thoracic sp ine shows no compression fracture. Sternum is intact. IMPRESSION: No evidence of pulmonary embolism. Mild scarring and subsegmental atelectasis. No suspicious pulmonar y mass. There is clearing of multiple nodular infiltrates and also the apparent lung abscess on the r ight side compared to old exam. There is mild residual scarring in the right middle lobe.
--- NOTE | 2021-08-16 18:44 | XR ---
EXAMINATION TYPE: XR shoulder complete RT DATE OF EXAM: 08/16/2021 COMPARISON: NONE HISTORY: Syncope. Pain TECHNIQUE: 3 views FINDINGS: There is no fracture nor dislocation. Joint spaces are normal. There are no pathologic calc ifications. IMPRESSION: Negative right shoulder exam.
[2021-08-16] MEDS ORDERED: DOXYCYCLINE 100 MG CAP PO STA (18:46)
[2021-08-16 18:54] VITALS: BP 158/92; PULSE 92
== END 2021-08-16 19:00 | disposition home or self-care (01) ==
LOC: EC 14:30
DX: S00.83XA Contusion of other part of head, initial encounter (principal); J40 Bronchitis, not specified as acute or chronic; G89.29 Other chronic pain; I10 Essential (primary) hypertension; E78.5 Hyperlipidemia, unspecified; F41.9 Anxiety disorder, unspecified; F32.9 Major depressive disorder, single episode, unspecified; Z98.51 Tubal ligation status; Z87.891 Personal history of nicotine dependence; Z20.822 Contact with and (suspected) exposure to COVID-19; Z79.899 Other long term (current) drug therapy; X58.XXXA Exposure to other specified factors, initial encounter
CPT/HCPCS: 99285; 96374; 96361; 93005; 85379; 80053; 82550; 83735; 84484; 85025; 85610; 85730; 87635; 73030; 72128; 72125; 72131; 70486; 70450; 71275; J2270; Q9967

== ENCOUNTER → 2021-09-18 | Outpatient (CLI) | payer OTHER ==
--- NOTE | 2021-09-18 17:08 | BD ---
EXAMINATION TYPE: Axial Bone Density DATE OF EXAM: 09/18/2021 COMPARISON: 12/29/2016 CLINICAL HISTORY: postmenopausal screening Height: 63 Weight: 130.6 FRAX RISK QUESTIONS: Alcohol (3 or more units per day): no Family History (Parent hip fracture): yes Glucocorticoids (More than 3mos): no (Ex: prednisone, prednisolone, methylprednisolone, dexamethasone, and hydrocortisone). History of Fracture in Adulthood: yes Secondary Osteoporosis: 1. Type 1 Diabetes: no 2. Hyperthyroidism: no 3. Menopause before 45: no 4. Malnutrition: 5. Chronic liver disease: no Rheumatoid Arthritis: no Current Tobacco Use: yes RISK FACTORS HISTORY OF: Hip Fracture (Right/Left): yes When: 1979 Surgery to Spine/Hip(right/left)/Wrist (right/left): bilateral hips When: 1979 Family History of Osteoporosis: yes Active: no Diet low in dairy products/other sources of calcium: yes Postmenopausal woman: yes Lost more than 2 inches in height since high school: no MEDICATIONS: scanned into pacs Additional History: EXAM MEASUREMENTS: Bone mineral densitometry was performed using the [employer] System. Bone mineral density as measured about the Lumbar spine is: ----- L1-L4(G/cm2): 0.835 T Score Values are as follows: ----- L2: -3.6 ----- L3: -3.2 ----- L4: -2.4 ----- L1-L4: -2.9 Bone mineral density has: decreased -6.2 % since study of: 12.29.2016 Bone mineral density about the L Wrist (g/cm2): 0.518 T Score values are as follows: -----Dist. R+U: -3.4 -----Prox. R+U: -1.8 -----Radius total: -2.6 Bone mineral density : baseline IMPRESSION: Osteoporosis (T Score less than -2.5). There is increased fracture risk and therapy is usually indicated based on age. Re-Screen 1-2 years. NOTE: T-SCORE=SD OF THE YOUNG ADULT MEAN.
== END | disposition home or self-care (01) ==
LOC: RADBDWWP 09:21
PROVIDERS: ATTEND Internal Medicine
DX: Z13.820 Encounter for screening for osteoporosis (principal); M81.0 Age-related osteoporosis without current pathological fracture; Z78.0 Asymptomatic menopausal state
CPT/HCPCS: 77080; 93225; 93226; 93306

== ENCOUNTER → 2021-10-16 | Outpatient (CLI) | payer OTHER ==
--- NOTE | 2021-10-16 15:09 | MM ---
Reason for exam: history of benign breast biopsy. Last mammogram was performed 2 years ago. History: Patient is postmenopausal. Family history of breast cancer in sister at age 57. Benign US breast needle core addl LT of the left breast, October 21, 2020. Benign US breast needle core LT of the left breast, October 19, 2020. Took hormonal contraceptives for 5 years. Physical Findings: Nurse did not find any significant physical abnormalities on exam. MG 3D Diag Mammo W/Cad SHARON Bilateral CC and MLO view(s) were taken. Prior study comparison: October 06, 2019, right breast MG work up mamm w CAD RT. September 25, 2019, bilateral MG screening mammo w CAD. The breast tissue is heterogeneously dense. This may lower the sensitivity of mammography. Stable benign calcifications. There is no discrete abnormality. No significant new findings when compared with previous films. These results were verbally communicated with the patient and result sheet given to the patient on 10/16/21. ASSESSMENT: Incomplete: need additional imaging evaluation, BI-RAD 0 RECOMMENDATION: Ultrasound of the left breast. Manage patient on a clinical basis.
--- NOTE | 2021-10-16 15:10 | USB ---
Reason for exam: additional evaluation requested from abnormal screening. History: Patient is postmenopausal. Family history of breast cancer in sister at age 57. Benign US breast needle core addl LT of the left breast, October 21, 2020. Benign US breast needle core LT of the left breast, October 19, 2020. Took hormonal contraceptives for 5 years. US Breast Limited LT Left limited breast ultrasound including focal area of concern, retroareolar and axilla demonstrates a 1.2 x 1.4 x 0.5cm lymph node at the axilla and a 1.3 x 0.8 x 0.3cm lymph node at the axilla. These results were verbally communicated with the patient and result sheet given to the patient on 10/16/21. ASSESSMENT: Benign, BI-RAD 2 RECOMMENDATION: Routine screening mammogram of both breasts in 1 year. Manage patient on a clinical basis.
--- NOTE | 2021-10-16 15:47 | US ---
EXAMINATION TYPE: US carotid duplex BILAT DATE OF EXAM: 10/16/2021 COMPARISON: US, CT BRain, MRA brain CLINICAL HISTORY: R55 SYNCOPE. Patient fell suffering left head bruise and left upper neck palpable; smoker x 35 years; high blood pressure and cholesterol. EXAM MEASUREMENTS: RIGHT: Peak Systolic Velocity (PSV) cm/sec ----- Right CCA: 70.7 ----- Right ICA: 82.2 ----- Right ECA: 78.9 ICA/CCA ratio: 1.2 RIGHT: End Diastole cm/sec ----- Right CCA: 24.1 ----- Right ICA: 32.6 ----- Right ECA: 15.0 LEFT: Peak Systolic Velocity (PSV) cm/sec ----- Left CCA: 57.5 ----- Left ICA: 109.7 ----- Left ECA: 45.8 ICA/CCA ratio: 1.9 LEFT: End Diastole cm/sec ----- Left CCA: 19.6 ----- Left ICA: 51.3 ----- Left ECA: 1.9 VERTEBRALS (direction of flow): Right Vertebral: Antegrade Left Vertebral: Antegrade Rhythm: Normal Moderate wall plaque is noted at bilateral carotid bifurcation as well as tortuous Left ICA is imaged , but PSV is wnl bilaterally. At left upper neck palpable a lymph node is seen =1.5 x 1.1 x 0.6cm. IMPRESSION: No evidence for hemodynamically significant stenosis. Criteria for Assigning % of Stenosis / Diameter reduction (Estimation based on the indirect measurements of the internal carotid artery velocities (ICA PSV). 1. Normal (no stenosis)=ICA PSV < 125 cm/s: ratio < 2.0: ICA EDV<40 cm/s. 2. Less than 50% stenosis=ICA PSV < 125 cm/s: ratio < 2.0: ICA EDV<40 cm/s. 3. 50 to 69% stenosis=ICA PSV of 125 to 230 cm/s: ration 2.0 ? 4.0: ICA EDV 40-100 cm/s. 4. Greater than 70% stenosis to near occlusion= ICA PSV > 230 cm/s: ratio > 4.0: ICA EDV > 100 cm/s. 5. Near occlusion= ICA PSV velocities may be low or undetectable: variable ratio and ICA EDV. 6. Total occlusion=unable to detect flow.
== END ==
LOC: RADMAMWWP 13:47
PROVIDERS: ATTEND Internal Medicine
DX: S00.83XA Contusion of other part of head, initial encounter (principal); R92.1 Mammographic calcification found on diagnostic imaging of breast; Z80.3 Family history of malignant neoplasm of breast; I65.23 Occlusion and stenosis of bilateral carotid arteries; W19.XXXA Unspecified fall, initial encounter
CPT/HCPCS: 77066; 93880; 76642; G0279; 77062

== ENCOUNTER 2022-01-25 11:55 | Emergency (ER) | payer OTHER ==
[2022-01-25 12:28] VITALS: BP 126/77; PULSE 72; RESP 18; TEMP 98.1
[2022-01-25] MEDS ORDERED: HYDROcodone/APAP 5-325MG 1 EACH TAB PO STA (13:14)
[2022-01-25] MEDS ORDERED: DEXAMETHASONE SOD PHOSPHATE 10 MG/ML 1 ML VIAL IM STA (13:14)
[2022-01-25] MEDS ORDERED: AMOXIC-POT CLAV 875-125MG 1 EACH TAB PO STA (13:14)
[2022-01-25] MEDS ORDERED: ACET/COD 300 MG/30 MG STARTER PACK 6 TAB BTL PO STA (13:19)
--- NOTE | 2022-01-25 13:19 | ED ---
General Adult HPI - General Chief complaint: Skin/Abscess/Foreign Body Stated complaint: Facial Infection Time Seen by Provider: 01/25/22 12:45 Source: patient Mode of arrival: ambulatory Limitations: no limitations - History of Present Illness Initial comments: Dictation was produced using [employer] dictation software. please excuse any grammatical, word or spelling errors. Chief Complaint: 61-year-old female presents to emergency department for facial cellulitis History of Present Illness: 61-year-old female with no significant past medical history presents emergency department for facial cellulitis. Auscultation is been scratching scab on her chin. Over the last couple days it's been increasing in redness swelling and pain. Follow primary care doctors office and was told to come to the emergency department. Patient states she has pain along the mandible of her chin with tenderness. It's been draining clear fluid. No drainage of pus. Denies any fever or constitutional symptoms. No trouble breathing or swallowing. Denies any swelling to the tongue. No dental pain. The ROS documented in this emergency department record has been reviewed and confirmed by me. Those systems with pertinent positive or negative responses have been documented in the HPI. All other systems are other negative and/or noncontributory. PHYSICAL EXAM: General Impression: Alert and oriented x3, not in acute distress HEENT: Normocephalic atraumatic, extra-ocular movements intact, pupils equal and reactive to light bilaterally, mucous membranes moist Oral: No dental pain, no sublingual edema or swelling. Tongue is normal. Face: There is induration along the anterior and right mandible. There is no submental swelling or induration. Cardiovascular: Heart regular rate and rhythm Chest: Able to complete full sentences, no retractions, no tachypnea Musculoskeletal: Pulses present and equal in all extremities, no peripheral e peter Motor: no focal deficits noted Neurological: CN II-XII grossly intact, no focal motor or sensory deficits noted Skin: Intact with no visualized rashes Psych: Normal affect and mood ED course: 61-year-old female presents emergency department for facial cellulitis. Vital signs upon arrival are within acceptable limits. Clinical presentation does not suggest Clement's angina. She's not showing any high risk features. No airway compromise. Normal phonation and tolerating secretions. She doesn't have any physical exam features to suggest Clement's angina. Patient given a dose of Augmentin and Decadron. Patient will be discharged with prescription for Augmentin and advised to follow up with primary care doctor. - Related Data Home Medications Medication Instructions Recorded Confirmed Baclofen [Lioresal] 20 mg PO TID PRN 12/10/14 08/16/21 Diphenox-Atrop 2.5-0.025 mg 1 - 2 tab PO QID PRN 12/10/14 08/16/21 [Lomotil] Verapamil HCl [Verapamil ER] 240 mg PO DAILY 12/10/14 08/16/21 clonazePAM [Clonazepam] 1 mg PO BID PRN 12/10/14 08/16/21 traMADol HCl [Ultram] 50 mg PO TID PRN 12/10/14 08/16/21 HYDROcodone/APAP 10-325MG [[place] 1 tab PO QID PRN 09/22/15 08/16/21 10-325] Ergocalciferol (Vitamin D2) 50,000 unit PO KELLEY 07/01/20 08/16/21 [Drisdol (50,000 Iu)] Metoprolol Tartrate 25 mg PO BID 07/01/20 08/16/21 modafiniL [Provigil] 200 mg PO BID PRN 07/01/20 08/16/21 Butalb/APAP/Caff 50-325-40Mg 1 tab PO BID PRN 08/16/21 08/16/21 [Fioricet 50-325-40] Donepezil HCl [Aricept] 10 mg PO DAILY 08/16/21 08/16/21 Ferrous Sulfate [Feosol] 325 mg PO BID 08/16/21 08/16/21 Pregabalin [Lyrica] 200 mg PO BID 08/16/21 08/16/21 Previous Rx's Medication Instructions Recorded Doxycycline Hyclate [Vibramycin] 100 mg PO BID 7 Days #14 cap 08/16/21 Amoxic-Pot Clav 875-125Mg 1 tab PO BID 10 Days #20 tab 01/25/22 [Augmentin 875-125] Allergies Allergy/AdvReac Type Severity Reaction Status Date / Time No Known Allergies Allergy Verified 01/25/22 12:28 Review of Systems ROS Statement: Those systems with pertinent positive or pertinent negative responses have been documented in the HPI. ROS Other: All systems not noted in ROS Statement are negative. Past Medical History Past Medical History: Hyperlipidemia, Hypertension, Musculoskeletal Disorder, Skin Disorder Additional Past Medical History / Comment(s): migraines, ulcerative colitis, lumbar degenerative disc, fibromyalgia, MS, recent admission for left breast abscess, daily drsg. changes, still having some drng., fell day before d/c & hurt tailbone History of Any Multi-Drug Resistant Organisms: None Reported Past Surgical History: Tubal Ligation Additional Past Surgical History / Comment(s): fx femurs, facial surgery, deviated septum, AJITH and RFA to neck and back Past Anesthesia/Blood Transfusion Reactions: No Reported Reaction Past Psychological History: Anxiety, Depression Smoking Status: Former smoker Past Alcohol Use History: Rare Past Drug Use History: None Reported - Past Family History Sister(s) Family Medical History: Cancer Additional Family Medical History / Comment(s): breast General Exam Limitations: no limitations Course Vital Signs 01/25/22 12:26 Temperature 98.1 F Pulse Rate 72 Respiratory 18 Rate Blood Pressure 126/77 O2 Sat by Pulse 97 Oximetry Disposition Clinical Impression: Facial cellulitis Disposition: HOME SELF-CARE Condition: Fair Instructions (If sedation given, give patient instructions): Cellulitis (ED) Prescriptions: Amoxic-Pot Clav 875-125Mg [Augmentin 875-125] 1 tab PO BID 10 Days #20 tab Is patient prescribed a controlled substance at d/c from ED?: No Referrals: Cm Joseph MD [Primary Care Provider] - 1-2 days
== END 2022-01-25 13:32 | disposition home or self-care (01) ==
LOC: EC 11:55
DX: L03.211 Cellulitis of face (principal); I10 Essential (primary) hypertension; E78.5 Hyperlipidemia, unspecified; F32.A Depression, unspecified; F41.9 Anxiety disorder, unspecified; Z87.891 Personal history of nicotine dependence; Z79.899 Other long term (current) drug therapy
CPT/HCPCS: 99283; 96372; J1100

== ENCOUNTER 2022-01-27 10:33 | Observation (INO) | payer OTHER ==
[2022-01-27] MEDS ORDERED: AMPICILLIN-SULBACTAM 3 GM in SODIUM CHLORIDE 0.9% 100 ML IVPB STA (12:00)
[2022-01-27] MEDS: SODIUM CHLORIDE 0.9% 500 ML 500 ML IV SCH ×3 (12:46→14:22)
[2022-01-27] MEDS ORDERED: HYDROmorphone 0.5 MG/0.5 ML SYRINGE IVP STA ×2 (12:52→13:45)
[2022-01-27 13:03] LABS: Basophils # (A) 0.1 k/uL (0-0.2); Basophils % (A) 0 %; Eosinophils # (A) 0.4 k/uL (0-0.7); Eosinophils % (A) 2 %; HCT 39.2 % (34.0-46.0); HGB 12.7 gm/dL (11.4-16.0); Lymphocytes # (A) 1.9 k/uL (1.0-4.8); Lymphocytes % (A) 9 %; MCH 33.6 pg (25.0-35.0); MCHC 32.5 g/dL (31.0-37.0); MCV 103.4 fL (80.0-100.0); Macrocytosis Slight; Mean Platelet Volume 9.5; Monocytes # (A) 1.1 k/uL (0-1.0); Monocytes % (A) 5 %; Neutrophils # (A) 17.1 k/uL (1.3-7.7); Neutrophils % (A) 83 %; Platelet Count 225 k/uL (150-450); RBC 3.79 m/uL (3.80-5.40); RDW 12.6 % (11.5-15.5); WBC 20.7 k/uL (3.8-10.6)
[2022-01-27 13:08] LABS: ALT 19 U/L (4-34); AST 21 U/L (14-36); African American GFR (CKD) >90 (>60 ml/min/1.73 sqM); Albumin 3.9 g/dL (3.5-5.0); Alkaline Phosphatase 105 U/L (38-126); Anion Gap 6 mmol/L; Blood Urea Nitrogen 12 mg/dL (7-17); Carbon Dioxide 28 mmol/L (22-30); Chloride 101 mmol/L (98-107); Glucose 105 mg/dL (74-99); Non-African American GFR(CKD) >90 (>60 ml/min/1.73 sqM); Potassium 4.5 mmol/L (3.5-5.1); Sodium 135 mmol/L (137-145); Total Bilirubin 0.9 mg/dL (0.2-1.3); Total Protein 6.7 g/dL (6.3-8.2)
--- NOTE | 2022-01-27 13:52 | ED ---
General Adult HPI - General Chief complaint: Skin/Abscess/Foreign Body Stated complaint: facial swelling/trouble swallowing revisit Time Seen by Provider: 01/27/22 11:23 Source: patient Mode of arrival: ambulatory Limitations: no limitations - History of Present Illness Initial comments: 61-year-old female presents to the emergency room for a chief complaint of facial abscess. Patient states that she is supposed to be on Klonopin but was not able to fill her prescription which caused her to itch. States she has been scratching her chin. On Wednesday she had some sores on her chin and then throughout the past 4 days she developed swelling of her face. States the swelling tracks down the front of her neck yesterday. Today the pain was even worse and she decided to come in. She has not had fevers. She has pain with opening her mouth.she denies any difficulty breathing. She does have some mild difficulty swallowing. Patient has no other complaints at this time including shortness of breath, chest pain, abdominal pain, nausea or vomiting, headache, or visual changes. - Related Data Home Medications Medication Instructions Recorded Confirmed Baclofen [Lioresal] 20 mg PO BID 12/10/14 01/27/22 Diphenox-Atrop 2.5-0.025 mg 2 tab PO QID PRN 12/10/14 01/27/22 [Lomotil] clonazePAM [Clonazepam] 1 mg PO BID 12/10/14 01/27/22 traMADol HCl [Ultram] 50 mg PO TID PRN 12/10/14 01/27/22 HYDROcodone/APAP 10-325MG [[place] 1 tab PO QID PRN 09/22/15 01/27/22 10-325] Ergocalciferol (Vitamin D2) 50,000 unit PO KELLEY 07/01/20 01/27/22 [Drisdol (50,000 Iu)] modafiniL [Provigil] 200 mg PO BID 07/01/20 01/27/22 Butalb/APAP/Caff 50-325-40Mg 1 tab PO Q8H PRN 08/16/21 01/27/22 [Fioricet 50-325-40] Donepezil HCl [Aricept] 10 mg PO HS 08/16/21 01/27/22 Ferrous Sulfate [Feosol] 325 mg PO BID 08/16/21 01/27/22 Pregabalin [Lyrica] 200 mg PO BID 08/16/21 01/27/22 Acyclovir 400 mg PO TID PRN 01/27/22 01/27/22 Albuterol Sulfate [Proair Hfa] 2 puff INHALATION RT-Q6H PRN 01/27/22 01/27/22 Atorvastatin [Lipitor] 80 mg PO HS 01/27/22 01/27/22 Metoprolol Tartrate [Lopressor] 25 mg PO BID 01/27/22 01/27/22 lisinopriL [Zestril] 10 mg PO DAILY 01/27/22 01/27/22 Previous Rx's Medication Instructions Recorded Amoxic-Pot Clav 875-125Mg 1 tab PO BID 10 Days #20 tab 01/25/22 [Augmentin 875-125] Allergies Allergy/AdvReac Type Severity Reaction Status Date / Time No Known Allergies Allergy Verified 01/27/22 12:28 Review of Systems ROS Statement: Those systems with pertinent positive or pertinent negative responses have been documented in the HPI. ROS Other: All systems not noted in ROS Statement are negative. Past Medical History Past Medical History: Hyperlipidemia, Hypertension, Musculoskeletal Disorder, Skin Disorder Additional Past Medical History / Comment(s): migraines, ulcerative colitis, lumbar degenerative disc, fibromyalgia, MS, recent admission for left breast abscess, daily drsg. changes, still having some drng., fell day before d/c & hurt tailbone History of Any Multi-Drug Resistant Organisms: None Reported Past Surgical History: Tubal Ligation Additional Past Surgical History / Comment(s): fx femurs, facial surgery, deviated septum, AJITH and RFA to neck and back Past Anesthesia/Blood Transfusion Reactions: No Reported Reaction Past Psychological History: Anxiety, Depression Smoking Status: Former smoker Past Alcohol Use History: Rare Past Drug Use History: None Reported - Past Family History Sister(s) Family Medical History: Cancer Additional Family Medical History / Comment(s): breast General Exam Limitations: no limitations General appearance: alert, in no apparent distress Head exam: Present: atraumatic Eye exam: Present: normal appearance, PERRL, EOMI. Absent: scleral icterus, conjunctival injection ENT exam: Present: mucous membranes moist, normal external ear exam. Absent: normal oropharynx (Patient has a large abscess noted to the right side of the face with erythema extending down the anterior neck as well as some edema noted to the anterior chest wall. Inner mouth exam limited secondary to swelling. I do not appreciate any dental source at this time. no sublingual edema) Neck exam: Present: normal inspection, full ROM. Absent: tenderness Respiratory exam: Present: normal lung sounds bilaterally. Absent: respiratory distress, wheezes Cardiovascular Exam: Present: regular rate, normal rhythm, normal heart sounds Course Vital Signs 01/27/22 11:16 Temperature 98.2 F Pulse Rate 90 Respiratory 18 Rate Blood Pressure 173/94 O2 Sat by Pulse 98 Oximetry Medical Decision Making - Medical Decision Making Vitals are stable. Patient has right-sided swelling. Patient is able to stick out her tongue and does not have sublingual edema. She does however have trismus and erythema extending on the neck and upper chest. Is not having stridor or tripoding. She is not drooling, she is handling oral secretions. No respiratory distress. CBC does show leukocytosis with a white count of 20.7 with a left shift. CMP is unremarkable. CT soft tissue neck with contrast shows extensive acute inflammatory/infectious process involving the soft tissue of the right side of face and upper neck with mild or extension inferiorly down to the upper chest wall as detailed above. Could represent extensive cellulitis or other soft tissue infection. No soft tissue gas or definite marginally enhancing collection to suggest abscess formation however developing abscess cannot be excluded. Patent pharyngeal and laryngeal airways. Unremarkable epiglottis. Case discussed with Dr. Fernandez. Agrees with admission with IV antibiotics, recommends starting Decadron 10 mg every 8 hours 48 hours. Recommend ID consult. States patient does NOT need to be kept nothing by mouth. Discussed with Dr. Guzman who does accept the admission. - Lab Data Result diagrams: 01/27/22 12:42 01/27/22 12:42 Lab Results 01/27/22 01/27/22 01/27/22 Range/Units 12:42 12:42 12:42 WBC 20.7 H (3.8-10.6) k/uL RBC 3.79 L (3.80-5.40) m/uL Hgb 12.7 (11.4-16.0) gm/dL Hct 39.2 (34.0-46.0) % MCV 103.4 H (80.0-100.0) fL MCH 33.6 (25.0-35.0) pg MCHC 32.5 (31.0-37.0) g/dL RDW 12.6 (11.5-15.5) % Plt Count 225 (150-450) k/uL MPV 9.5 Neutrophils % 83 % Lymphocytes % 9 % Monocytes % 5 % Eosinophils % 2 % Basophils % 0 % Neutrophils # 17.1 H (1.3-7.7) k/uL Lymphocytes # 1.9 (1.0-4.8) k/uL Monocytes # 1.1 H (0-1.0) k/uL Eosinophils # 0.4 (0-0.7) k/uL Basophils # 0.1 (0-0.2) k/uL Macrocytosis Slight Sodium 135 L (137-145) mmol/L Potassium 4.5 (3.5-5.1) mmol/L Chloride 101 (98-107) mmol/L Carbon Dioxide 28 (22-30) mmol/L Anion Gap 6 mmol/L BUN 12 (7-17) mg/dL Creatinine 0.61 (0.52-1.04) mg/dL Est GFR (CKD-EPI)AfAm >90 (>60 ml/min/1.73 sqM) Est GFR (CKD-EPI)NonAf >90 (>60 ml/min/1.73 sqM) Glucose 105 H (74-99) mg/dL Plasma Lactic Acid [place] 0.6 L (0.7-2.0) mmol/L Calcium 9.0 (8.4-10.2) mg/dL Total Bilirubin 0.9 (0.2-1.3) mg/dL AST 21 (14-36) U/L ALT 19 (4-34) U/L Alkaline Phosphatase 105 (38-126) U/L Total Protein 6.7 (6.3-8.2) g/dL Albumin 3.9 (3.5-5.0) g/dL Disposition Clinical Impression: Facial cellulitis, Facial edema, Leukocytosis Disposition: ADMITTED IP TO THIS HOSP Is patient prescribed a controlled substance at d/c from ED?: No Referrals: Cm Joseph MD [Primary Care Provider] - 1-2 days Time of Disposition: 14:53
--- NOTE | 2022-01-27 14:13 | CT ---
EXAMINATION TYPE: CT soft tissue neck w con DATE OF EXAM: 01/27/2022 1:35 PM COMPARISON: CT dated 08/16/2021 HISTORY: Pain and swelling CT DLP: 214.2 mGycm Automated exposure control for dose reduction was used. CONTRAST: CT scan of the neck is performed following with IV Contrast, patient injected with 100 mL of Isovue 3 00. Axial images are obtained, coronal and sagittal reformatted images are reviewed. FINDINGS: Asymmetrically larger right submandibular salivary gland demonstrating heterogeneous hyperenhancement , significant with severe soft tissue swelling extending from the right side of the face starting fro m overlying the maxillary sinus superiorly down to the mid neck. It demonstrates skin thickening, sub cutaneous fat stranding and reactive fluid. No definite collection or abscess formation however a dev eloping abscess cannot be excluded. The inflammatory changes are inseparable from the most inferior a spect of the floor of the mouth. Reactive fluid is seen extending inferiorly along the anterior aspect of the thyroid gland down to th e level of the sternoclavicular joints. Anterior upper chest wall skin and simultaneously inflammator y changes. Preserved parapharyngeal fat and retropharyngeal space. Unremarkable nasopharynx, orophary nx, hypopharynx, larynx and visualized portion of the trachea and esophagus. Unremarkable epiglottis. Unremarkable base of the tongue. No evidence of obliteration of the pharyngeal or laryngeal air airw ay. No soft tissue gas. Multiple small hyperenhancing lymph nodes are seen in the right side of the upper neck as well as the submandibular region, likely reactive. Scattered arterial atherosclerotic calcifications. Patent camille or neck vessels. Tiny hypodensity in the right thyroid lobe, likely representing a tiny thyroid nodul e/cyst. Bilateral apical pulmonary fibrotic changes. Mucosal thickening of the ethmoid air cells. Ant erolisthesis of C4 over C5. Degenerative changes at the C5-6 and C6-levels. IMPRESSION: Extensive acute inflammatory/infectious processes involving the soft tissue of the right side of face and upper neck with milder extension inferiorly down to the upper chest wall as detailed above. This could represent extensive cellulitis or other soft tissue infection. No soft tissue gas or defin ite marginally enhancing collection to suggest abscess formation however a developing abscess cannot be excluded. Patent pharyngeal and laryngeal airways. Unremarkable epiglottis. Recommend surgical con sultation.
[2022-01-27] MEDS ORDERED: NALOXONE 0.4 MG/ML 1 ML VIAL IV PRN (14:54)
[2022-01-27] MEDS ORDERED: HYDROmorphone 0.5 MG/0.5 ML SYRINGE IVP PRN (14:54)
[2022-01-27] MEDS ORDERED: ONDANSETRON 4 MG/2 ML VIAL IVP PRN ×2 (14:55→18:13)
[2022-01-27] MEDS ORDERED: VANCOMYCIN IV PER PHARMACY 1 EACH MISC MISCELLANE PRN (15:03)
[2022-01-27] MEDS ORDERED: VANCOMYCIN 1,000 MG in SODIUM CHLORIDE 0.9% 250 ML IVPB STA (15:09)
[2022-01-27] MEDS: DEXAMETHASONE SOD PHOSPHATE 10 MG/ML 1 ML VIAL IVP SCH (15:52)
[2022-01-27] MEDS: SODIUM CHLORIDE 0.9% 1,000 ML IV SCH (15:52)
--- NOTE | 2022-01-27 16:57 | P.HPIM ---
History of Present Illness H&P Date: 01/27/22 Chief Complaint: neck pain and swelling Patient is a 61-year-old female with hypertension, dyslipidemia, ulcerative colitis, and migraine headaches who presented to the ER with complaints of facial abscess. In the ER she underwent an extensive evaluation. On arrival she was slightly hypertensive with systolic blood pressure 173. Laboratory analysis showed a white blood cell count of 20. Sodium 135. Lactic acid was low at 0.6. CT of the neck demonstrated sensitive acute inflammatory process involving the soft tissue of the right side of the face and upper not with extension inferior to the upper chest wall possible cellulitis or other soft tissue infection, not rule out developing abscess. Excoriation seen and examined at bedside in the ER. She reports that 5 days ago she started noticing some swelling and redness in her face. She thought it was due to scratching and itching her face as her anxiety has been high. She then reported to the emergency department on 01/25 Augmentin.She has been taking the antibiotics.However she has had increasing swelling, pain, and erythema over her chin, right neck, right check, and down into her chest wall.She reports chills and rigors at home, she has not been taking her temperature. Denies any recent dental work or dental infections. She does have a history of severe breast cellulitis with abscess in the past. She denies any history of MRSA. She denies getting bit by any animals, swimming in [place] water, or other exposures to her chest. Pertinent positives and negatives as discussed in HPI, a complete review of systems was performed and all other systems are negative. General: non toxic, no distress, appears at stated age Derm: warm, dry Head: atraumatic, normocephalic, symmetric Eyes: EOMI, no lid lag, anicteric sclera, pupils equal round reactive to light ENT: Nose and ears atraumatic, no thrush, no pharyngeal erythema Neck: No thyromegaly, no cervical lymphadenopathy, trachea midline, supple Mouth: no lip lesion, mucus membranes moist Cardiovascular: S1S2 reg, no murmur, positive posterior tibial pulse bilateral, no edema, capillary refill less than 2 seconds Lungs: clear to ascultation bilateral, no ronchi, no rales, no wheeze, no accessory muscle use Abdominal: soft, nontender to palpation, no guarding, no appreciable organomegaly, normal bowel sounds Ext: no gross muscle atrophy, muscle strength muscle strength 5 out of 5 in all 4 extremities, no contractures Neuro: CN II-XI grossly intact, light touch intact all 4 extremities, finger to nose within normal limits, Psych: Alert, oriented, appropriate affect Assessment/Plan: Soft tissue cellulitis of the neck without definitive abscess on CT scan with sepsis, failed outpatient treatment - d/w Dr. Fernandez - Shantadwilfredo, unasyn, Vanco - Consult ID - Patient to let nursing know if she develops difficulty with secretions and swallowing - NPO HTN - hold meds with NPO - prn labetalol SBP .180 HLD - meds on hold Chronic: Ulcerative colitis MS Anxiety The patient is admitted with an anticipated greater than 2 midnight stay for evaluation of cellulitis Surrogate decision-maker: son CODE STATUS:full DVT prophylaxis: SCDs Discussed with: patient, nursing, ED provider, Dr. Fernandez Anticipated discharge date: pending clinical course Anticipated discharge place: home A total of 65 minutes was spent on the care of this complex patient more than 50% of the time was spent in counseling and care coordination. Past Medical History Past Medical History: Hyperlipidemia, Hypertension, Musculoskeletal Disorder, Skin Disorder Additional Past Medical History / Comment(s): migraines, ulcerative colitis, lumbar degenerative disc, fibromyalgia, MS, recent admission for left breast abscess, daily drsg. changes, still having some drng., fell day before d/c & hu rt tailbone History of Any Multi-Drug Resistant Organisms: None Reported Past Surgical History: Tubal Ligation Additional Past Surgical History / Comment(s): fx femurs, facial surgery, deviated septum, AJITH and RFA to neck and back Past Anesthesia/Blood Transfusion Reactions: No Reported Reaction Past Psychological History: Anxiety, Depression Smoking Status: Former smoker (last cigarette 1 week ago) Past Alcohol Use History: None Reported, Rare Past Drug Use History: None Reported - Past Family History Sister(s) Family Medical History: Cancer Additional Family Medical History / Comment(s): breast Medications and Allergies Home Medications Medication Instructions Recorded Confirmed Type Baclofen [Lioresal] 20 mg PO BID 12/10/14 01/27/22 History Diphenox-Atrop 2.5-0.025 mg 2 tab PO QID PRN 12/10/14 01/27/22 History [Lomotil] clonazePAM [Clonazepam] 1 mg PO BID 12/10/14 01/27/22 History traMADol HCl [Ultram] 50 mg PO TID PRN 12/10/14 01/27/22 History HYDROcodone/APAP 10-325MG [[place] 1 tab PO QID PRN 09/22/15 01/27/22 History 10-325] Ergocalciferol (Vitamin D2) 50,000 unit PO KELLEY 07/01/20 01/27/22 History [Drisdol (50,000 Iu)] modafiniL [Provigil] 200 mg PO BID 07/01/20 01/27/22 History Butalb/APAP/Caff 50-325-40Mg 1 tab PO Q8H PRN 08/16/21 01/27/22 History [Fioricet 50-325-40] Donepezil HCl [Aricept] 10 mg PO HS 08/16/21 01/27/22 History Ferrous Sulfate [Feosol] 325 mg PO BID 08/16/21 01/27/22 History Pregabalin [Lyrica] 200 mg PO BID 08/16/21 01/27/22 History Amoxic-Pot Clav 875-125Mg 1 tab PO BID 10 Days #20 tab 01/25/22 01/27/22 Rx [Augmentin 875-125] Acyclovir 400 mg PO TID PRN 01/27/22 01/27/22 History Albuterol Sulfate [Proair Hfa] 2 puff INHALATION RT-Q6H PRN 01/27/22 01/27/22 History Atorvastatin [Lipitor] 80 mg PO HS 01/27/22 01/27/22 History Metoprolol Tartrate [Lopressor] 25 mg PO BID 01/27/22 01/27/22 History lisinopriL [Zestril] 10 mg PO DAILY 01/27/22 01/27/22 History Allergies Allergy/AdvReac Type Severity Reaction Status Date / Time No Known Allergies Allergy Verified 01/27/22 12:28 Physical Exam Osteopathic Statement: *. No significant issues noted on an osteopathic structural exam other than those noted in the History and Physical/Consult. Vitals: Vital Signs Temp Pulse Resp BP Pulse Ox 01/27/22 11:16 98.2 F 90 18 173/94 98 Intake and Output 0301/27/22 01/27/22 06:59 14:59 22:59 Other: Weight 58.967 kg Results CBC & Chem 7: 01/27/22 12:42 01/27/22 12:42 Labs: Abnormal Lab Results - Last 24 Hours (Table) 01/27/22 01/27/22 01/27/22 Range/Units 12:42 12:42 12:42 WBC 20.7 H (3.8-10.6) k/uL RBC 3.79 L (3.80-5.40) m/uL MCV 103.4 H (80.0-100.0) fL Neutrophils # 17.1 H (1.3-7.7) k/uL Monocytes # 1.1 H (0-1.0) k/uL Sodium 135 L (137-145) mmol/L Glucose 105 H (74-99) mg/dL Plasma Lactic Acid [place] 0.6 L (0.7-2.0) mmol/L
[2022-01-27] MEDS ORDERED: AMPICILLIN-SULBACTAM 3 GM in SODIUM CHLORIDE 0.9% 100 ML IVPB SCH (18:00)
[2022-01-27] MEDS ORDERED: LORazepam 2 MG/ML INJ IV PRN ×2 (18:10→18:38)
[2022-01-27] MEDS ORDERED: ACETAMINOPHEN TAB 325 MG TAB PO PRN (18:35)
[2022-01-27] MEDS ORDERED: LABETALOL 5 MG/ML VIAL MDV IVP PRN (18:38)
[2022-01-27] MEDS: NICOTINE 21MG/24HR PATCH TRANSDERM SCH (19:43)
[2022-01-27] MEDS: MORPHINE SULFATE 4 MG/ML SYRINGE IVP PRN (19:43)
[2022-01-27] MEDS ORDERED: PIPERACILLIN-TAZOBACTAM 3.375 GM in SODIUM CHLORIDE 0.9% 100 ML IVPB SCH (22:00)
[2022-01-27] MEDS: AMPICILLIN-SULBACTAM 3 GM in SODIUM CHLORIDE 0.9% 100 ML IVPB SCH (22:24)
--- NOTE | 2022-01-27 23:10 | P.CONS ---
History of Present Illness - Reason for Consult Consult date: 01/27/22 Fascial abscess and cellulitis Requesting physician: Olimpia Guaman - Chief Complaint Right-sided facial swelling and pain x 3 days - History of Present Illness Patient is a 61-year-old female with a past medical history significant for MS patient presenting to [facility] on ER for evaluation of right-sided facial swelling and redness in this patient symptoms started on Wednesday there is 3 days before presentation to the hospital patient apparently may have a small pimple on the chin area the patient may try to have squeezed it admission any purulent drainage subsequently noticed to having swelling and redness predominantly involving the right side of the facial area patient been complaining of pain throbbing intensity is almost 10 out of 10 with no radiation patient denies having any difficulty swallowing or difficulty breathing with the symptom the patient was evaluated by the ER physician on arrival to the ER the patient was afebrile patient did have white count of 20,000 with a left shift creatinine has been normal liver enzymes are normal blood cultures have been obtained which are currently pending patient did have a CT of the soft tissue of the neck which shows extensive acute inflammatory changes involving the soft tissue of the right side of the face and upper back with minor extension inferiorly down to the upper chest wall no evidence of any abscess formation or soft tissue gas patient was started on vancomycin and Zosyn infectious disease was consulted for further management of antibiotic therapy Review of Systems Positive point has been mentioned in the HPI rest of the systems are negative Past Medical History Past Medical History: Hyperlipidemia, Hypertension, Musculoskeletal Disorder, Skin Disorder Additional Past Medical History / Comment(s): migraines, ulcerative colitis, lumbar degenerative disc, fibromyalgia, MS, recent admission for left breast abscess, daily drsg. changes, still having some drng., fell day before d[facility]c [facility] History of Any Multi-Drug Resistant Organisms: None Reported Past Surgical History: Tubal Ligation Additional Past Surgical History / Comment(s): fx femurs, facial surgery, deviated septum, AJITH and RFA to neck and back Past Anesthesia/Blood Transfusion Reactions: No Reported Reaction Past Psychological History: Anxiety, Depression Smoking Status: Former smoker (last cigarette 1 week ago) Past Alcohol Use History: None Reported, Rare Past Drug Use History: None Reported - Past Family History Sister(s) Family Medical History: Cancer Additional Family Medical History / Comment(s): breast Medications and Allergies Home Medications Medication Instructions Recorded Confirmed Type Baclofen [Lioresal] 20 mg PO BID 12/10/14 01/27/22 History Diphenox-Atrop 2.5-0.025 mg 2 tab PO QID PRN 12/10/14 01/27/22 History [Lomotil] clonazePAM [Clonazepam] 1 mg PO BID 12/10/14 01/27/22 History traMADol HCl [Ultram] 50 mg PO TID PRN 12/10/14 01/27/22 History HYDROcodone/APAP 10-325MG [[place] 1 tab PO QID PRN 09/22/15 01/27/22 History 10-325] Ergocalciferol (Vitamin D2) 50,000 unit PO KELLEY 07/01/20 01/27/22 History [Drisdol (50,000 Iu)] modafiniL [Provigil] 200 mg PO BID 07/01/20 01/27/22 History Butalb/APAP/Caff 50-325-40Mg 1 tab PO Q8H PRN 08/16/21 01/27/22 History [Fioricet 50-325-40] Donepezil HCl [Aricept] 10 mg PO HS 08/16/21 01/27/22 History Ferrous Sulfate [Feosol] 325 mg PO BID 08/16/21 01/27/22 History Pregabalin [Lyrica] 200 mg PO BID 08/16/21 01/27/22 History Amoxic-Pot Clav 875-125Mg 1 tab PO BID 10 Days #20 tab 01/25/22 01/27/22 Rx [Augmentin 875-125] Acyclovir 400 mg PO TID PRN 01/27/22 01/27/22 History Albuterol Sulfate [Proair Hfa] 2 puff INHALATION RT-Q6H PRN 01/27/22 01/27/22 History Atorvastatin [Lipitor] 80 mg PO HS 01/27/22 01/27/22 History Metoprolol Tartrate [Lopressor] 25 mg PO BID 01/27/22 01/27/22 History lisinopriL [Zestril] 10 mg PO DAILY 01/27/22 01/27/22 History Allergies Allergy/AdvReac Type Severity Reaction Status Date / Time No Known Allergies Allergy Verified 01/27/22 12:28 Physical Exam Vitals: Vital Signs Temp Pulse Resp BP Pulse Ox 01/27/22 11:16 98.2 F 90 18 173/94 98 Intake and Output 01/27/22 01/27/22 01/27/22 06:59 14:59 22:59 Other: Weight 58.967 kg GENERAL DESCRIPTION: Middle-aged female lying in bed, no distress. No tachypnea or accessory muscle of respiration use. HEENT: Shows Pallor , no scleral icterus. Oral mucous membrane is dry. No pharyngeal erythema or thrush, patient did have a small abscess adequately on the chin with some purulent drainage which has been cultured with significant swelling involving the right side of the face tender to touch NECK: Trachea central, no thyromegaly. LUNGS: Unlabored breathing. Clear to auscultation anteriorly. No wheeze or crackle. HEART: S1, S2, regular rate and rhythm. No loud murmur ABDOMEN: Soft, no tenderness , guarding or rigidity, no organomegaly EXTREMITIES: No edema of feet. SKIN: No rash, no masses palpable. NEUROLOGICAL: The patient is awake, alert, oriented x3, mood and affect normal. Results CBC & Chem 7: 01/27/22 12:42 01/27/22 12:42 Labs: Abnormal Lab Results - Last 24 Hours (Table) 01/27/22 01/27/22 01/27/22 Range/Units 12:42 12:42 12:42 WBC 20.7 H (3.8-10.6) k/uL RBC 3.79 L (3.80-5.40) m/uL MCV 103.4 H (80.0-100.0) fL Neutrophils # 17.1 H (1.3-7.7) k/uL Monocytes # 1.1 H (0-1.0) k/uL Sodium 135 L (137-145) mmol/L Glucose 105 H (74-99) mg/dL Plasma Lactic Acid Kal[place] 0.6 L (0.7-2.0) mmol/L Assessment and Plan (1) Facial cellulitis Current Visit: Yes Status: Acute Code(s): L03.211 - CELLULITIS OF FACE SNOMED Code(s): 422005981 Plan: 1patient presented to hospital with extensive right-sided facial cellulitis apparently started with a small area of pimple on the chin with the patient tried to squeeze and more likely need to cover for the gram-positive skin yady to the likely pathogen and less likely oral yady. 2vancomycin pharmacy to dose target trough of 15 while watching kidney function and vancomycin trough closely 3-discontinue Zosyn and start the patient on Unasyn 3 g every 6 hours 4local and blood cultures will be followed We will follow on clinical condition and cultures to further adjust medication if needed Thank you for this consultation will follow this patient along with you Time with Patient: Greater than 30
[2022-01-28] MEDS: DEXAMETHASONE SOD PHOSPHATE 10 MG/ML 1 ML VIAL IVP SCH ×4 (00:06→23:49)
[2022-01-28] MEDS: MORPHINE SULFATE 4 MG/ML SYRINGE IVP PRN ×2 (00:36→05:46)
[2022-01-28] MEDS: SODIUM CHLORIDE 0.9% 1,000 ML IV SCH ×4 (00:40→20:16)
[2022-01-28] MEDS: AMPICILLIN-SULBACTAM 3 GM in SODIUM CHLORIDE 0.9% 100 ML IVPB SCH ×4 (03:45→23:49)
--- NOTE | 2022-01-28 03:45 | CONS ---
CONSULTATION DATE OF CONSULTATION: 01/27/2022 REASON FOR CONSULTATION: Right facial swelling/cellulitis. HISTORY OF THE PRESENT ILLNESS: This patient is a pleasant 61-year-old female who presents in [facility] Emergency Room with complaints of right facial swelling and drainage from her chin. The patient was seen originally on 01/25/2022 at 8:22 pm in the emergency room with complaints of facial swelling. At that time, she stated that on Wednesday of last week, she developed some itching, following a dose of Klonopin, and that she repeatedly scratched her chin because it was quite itchy after taking this medication. She subsequently did not take any more medication. However, she developed a pimple on her chin which she admits to having squeezed in an attempt to make it (pop). There was a small amount of purulent material that came from this area. However, subsequently the area began to swell, became quite red and tender. The patient was seen in [facility] Emergency Room on 01/25/2022 and at that time was diagnosed with cellulitis and was placed on Augmentin 875 mg b.i.d. She went home, but the swelling got worse and also the pain got worse. She experienced some episodes of chills, she states. She does not have a thermometer, so she did not take her temperature. On 01/27/2022 she was again seen in emergency room. I received a call from the PA who had seen her describing her condition. At that time, I was told that the patient had significant swelling of the right facial area, which extended down into the neck and somewhat onto the anterior chest wall. In addition, there was a draining area on the patient's chin. A CT scan of the neck reveals significant cellulitis of the right face and extending to the neck and onto the anterior chest wall. There was no evidence of any abscess, however. The patient was noted to be afebrile but white count was 20,000+. The PA agreed the patient should be admitted and she was given high dose of an antibiotic (Unasyn?) and an Infectious Disease consult was also obtained. At the time that I arrived at the emergency room,the Infectious Disease service was already seeing the patient and obtaining a culture of the wound site on her chin. The patient was noted to not be in any acute respiratory distress, no dysphagia, and she did not exhibit shortness of breath. She denies having had any similar problem in the past. Past medical history reveals she has no known allergies to medications. MEDICATIONS: Current medications include tramadol, Provigil, clonazepam, Lyrica, Lopressor, Olivia, Aricept, Fioricet, baclofen, Lipitor, Pro-Air, Acyclovir. PAST MEDICAL HISTORY: The patient has history of multiple sclerosis, ulcerative colitis and COPD/emphysema. SOCIAL HISTORY: She used to smoke approximately 3/4 to 1 pack of cigarettes per day, but over the past several weeks she has been trying to quit using the nicotine patch. At the current time, she is down to smoking just 1 cigarette per day. There is no history of diabetes mellitus. REVIEW OF SYSTEMS: Reveals: CARDIOVASCULAR is positive for hypertension. RESPIRATORY: Positive for COPD/COPD/emphysema. METABOLIC/ENDOCRINE is positive for hypercholesterolemia. MUSCULOSKELETAL is positive for osteoarthritis. NEUROLOGICAL is positive for multiple sclerosis. GASTROINTESTINAL was positive for ulcerative colitis. The remainder review of systems is unremarkable. PHYSICAL EXAMINATION: This patient is a 61-year-old female who is resting comfortably on the ER bed and is in no acute distress at this time. She is well oriented to time and place and is not having any difficulty breathing or handling her secretions. In addition to this, she is a good historian. HEENT examination: Patient is normocephalic. Tympanic membranes are normal. Middle ear spaces are free of any fluid or infection. Pupils equal, round, react to light and accommodation. Extraocular movements within normal limits. Intranasal examination reveals moderate septal deviation to the right with compensatory hypertrophy of the inferior turbinates bilaterally. There is a moderate amount of clear mucus on the mucous membrane and draining from the maxillary sinus ostia. Examination of oropharynx reveals the patient has a mild degree of trismus but she is also able to open her mouth enough to allow a good examination. I do not see any edema of the soft tissues of the posterior pharyngeal wall, tonsillar area or of the floor of the mouth. The anterior chin exhibits a draining wound (probable small abscess cavity), there is significant tenderness of the skin in general of the right side of the face, neck, and anterior chest. With the patient's cooperation, I was able to deeply palpate the right area and revealed that the right parotid gland was quite firm but not fluctuant and there was also some firmness and moderate swelling of the right neck. I am not able to palpate any distinct lymph nodes, however, and again there is no evidence any fluctuance. The skin of the anterior wall of the chest is quite tender, but again there is no evidence of any fluctuance. Probing of the drainage site on the anterior chin with a q-tip reveals that there is a small abscess cavity present which can be palpated down to the muscles/bone. I did not probe this area too much because it was uncomfortable for the patient. There is significant purulent drainage coming from this area at this time. The patient is able to speak and protrude her tongue. The swelling of the face appears to be superiorly limit and stops at the corner of the right eye and at the left side of the face. The left side of the face, left neck, etc. all completely unremarkable and nontender to palpation. The patient appears to be able to handle her secretions without difficulty and her tongue does not protrude. Deep palpation of the floor of the mouth and the chin area again does not revealed any evidence of abscess or fluctuance, but there is significant tenderness in this area. Cranial nerves 2 through 12 and remainder of the head and neck exam is essentially unremarkable. Also, also, there is no evidence of periorbital edema on the right side. CHEST/CARDIOVASCULAR: Both lung longo are clear to percussion and auscultation. Patient is in regular sinus rhythm. S1 and S2 are present with the murmurs S3s or S4. Anterior chest wall is tender as noted above. Peripheral pulses are bilaterally symmetrical and within normal limits. ABDOMEN: There is no evidence of masses megaly or tenderness. Abdomen: Soft. SKIN is unremarkable. The remainder of the physical exam is unremarkable. IMPRESSION: Severe right facial cellulitis with right parotitis of the right parotid gland and small draining abscess cavity of the chin/mentum. Suspect MRSA. PLAN: Infectious Disease will determine the appropriate type and dosage of the antibiotics for this patient. I have ordered for the patient to receive 10 mg of dexamethasone q.8 hours for 24 hours in an effort to reduce the some of the edema. Unfortunately, this will also elevate her white count. I will see the patient tomorrow afternoon after my office and continue re-evaluating her on a daily basis to determine if any type of surgical intervention is required(deep neck abscess). At this point, no surgical intervention is required because the patient already has a draining site present. If she does not improve, certainly, a repeat CT scan with contrast would be indicated in an effort to see if in fact she has developed a deep neck abscess. I spent approximately 45 minutes with this patient in the emergency room. I would like to take this opportunity to thank you for allowing me to assist you in the care of this patient. If I can be of any further assistance, please feel free to call my office. MMMICH / ELLEN: [id number] / JERAMIE
[2022-01-28] MEDS: VANCOMYCIN 1,250 MG in SODIUM CHLORIDE 0.9% 250 ML IVPB SCH ×2 (05:45→17:51)
[2022-01-28 07:24] LABS: Basophils % (A) 0 %; Eosinophils % (A) 0 %; HCT 37.6 % (34.0-46.0); HGB 11.9 gm/dL (11.4-16.0); Hypochromasia Slight; Lymphocytes # (A) 0.8 k/uL (1.0-4.8); Lymphocytes % (A) 5 %; MCH 34.4 pg (25.0-35.0); MCHC 31.7 g/dL (31.0-37.0); Macrocytosis Moderate; Mean Platelet Volume 9.5; Monocytes # (A) 0.4 k/uL (0-1.0); Monocytes % (A) 3 %; Neutrophils # (A) 13.8 k/uL (1.3-7.7); Neutrophils % (A) 92 %; Platelet Count 220 k/uL (150-450); RBC 3.47 m/uL (3.80-5.40); RDW 12.7 % (11.5-15.5); WBC 15.1 k/uL (3.8-10.6)
[2022-01-28 07:47] LABS: African American GFR (CKD) >90 (>60 ml/min/1.73 sqM); Anion Gap 6 mmol/L; Blood Urea Nitrogen 8 mg/dL (7-17); Calcium 8.4 mg/dL (8.4-10.2); Carbon Dioxide 26 mmol/L (22-30); Chloride 107 mmol/L (98-107); Glucose 92 mg/dL (74-99); Non-African American GFR(CKD) >90 (>60 ml/min/1.73 sqM); Potassium 4.2 mmol/L (3.5-5.1); Sodium 139 mmol/L (137-145)
[2022-01-28 07:59] LABS: MCV 108.4 fL (80.0-100.0)
[2022-01-28] MEDS ORDERED: KETOROLAC 30 MG/ML 1 ML VIAL IVP PRN (08:29)
[2022-01-28] MEDS ORDERED: BUTALB/APAP/CAFF 50-325-40MG TAB PO PRN (08:30)
[2022-01-28] MEDS ORDERED: MUPIROCIN 2% OINT 22 GM TUBE TOPICAL PRN (08:32)
[2022-01-28] MEDS: BACLOFEN 10 MG TAB PO SCH ×2 (10:56→20:16)
[2022-01-28] MEDS: PREGABALIN 100 MG CAP PO SCH ×2 (10:57→20:16)
[2022-01-28] MEDS: lisinopriL 10 MG TAB PO SCH (10:57)
[2022-01-28] MEDS: METOPROLOL TARTRATE 25 MG TAB PO SCH ×2 (10:57→20:16)
[2022-01-28] MEDS: FERROUS SULFATE 325 MG TAB PO SCH ×2 (10:57→20:16)
[2022-01-28] MEDS: clonazePAM 1 MG TAB PO SCH ×2 (10:57→20:16)
[2022-01-28] MEDS: NICOTINE 21MG/24HR PATCH TRANSDERM SCH (10:58)
[2022-01-28] MEDS: HYDROmorphone 1 MG/ML 1 ML SYRINGE IVP PRN ×2 (10:58→12:58)
[2022-01-28] MEDS: HYDROcodone/APAP 10-325MG 1 EACH TAB PO PRN (12:57)
[2022-01-28] MEDS ORDERED: NALOXONE 0.4 MG/ML 1 ML VIAL IV PRN (13:06)
[2022-01-28] MEDS: HYDROmorphone PCA 10 MG/50 ML BAG IV PRN (16:10)
--- NOTE | 2022-01-28 16:23 | P.PN ---
Subjective Progress Note Date: 01/28/22 (delayed charting seen at 0830) Principal diagnosis: face swelling Patient is a 61-year-old female with hypertension, dyslipidemia, ulcerative colitis, and migraine headaches who presented to the ER with complaints of facial abscess. In the ER she underwent an extensive evaluation. On arrival she was slightly hypertensive with systolic blood pressure 173. Laboratory analysis showed a white blood cell count of 20. Sodium 135. Lactic acid was low at 0.6. CT of the neck demonstrated sensitive acute inflammatory process involving the soft tissue of the right side of the face and upper not with extension inferior to the upper chest wall possible cellulitis or other soft tissue infection, not rule out developing abscess. She was seen by ENT and ID. No definitive abscess. Patient seen and examined at bedside. She continues to complain of neck and facial pain. She states that the morphine is not relieving this pain. She states she is having no difficulty swallowing secretions, speaking. She is feeling hungry. I we are swallow water bedside which she did well. I agreed to restart her home medications while awaiting further ENT recommendations. As her pain and anxiety are worsening. General: non toxic, no distress, appears at stated age Derm: right face swelling with extension into right neck and anterior chest wall- improved from yesterday with less redenss and less swelling, + mobile LN on the left, Purulent drainiage form midline chin wound Head: atraumatic, normocephalic, symmetric Eyes: EOMI, no lid lag, anicteric sclera Mouth: no lip lesion, mucus membranes moist Cardiovascular: S1S2 tachy, no murmur, positive posterior tibial pulse bilateral, Lungs: CTA bilateral, no rhonchi, no rales , no accessory muscle use Abdominal: soft, nontender to palpation, no guarding, no appreciable organomegaly Ext: no gross muscle atrophy, no edema, no contractures Neuro: CN II-XI grossly intact, no focal neuro deficits Psych: Alert, oriented, appropriate affect Soft tissue cellulitis right face with right parotitis and small draining chin abscess with sepsis, failed outpatient treatment - ENT and ID recs - Decadromulo villalobossyPadma milligano - Consult ID - Patient to let nursing know if she develops difficulty with secretions and swallowing - ICE chips and meds - add toradol and change morphine to dilaudid - await culutures obtained on 01/27/22 HTN - metoprolol and lisinopril - follow BP HLD - statin Tobacco abuse - nicotine replacement Chronic: Ulcerative colitis MS Anxiety - resume home meds DVT prophylaxis: Heparin Discussed with: Nursing Anticipated discharge: pending clinical course Anticipated discharge place: home A total of 45 minutes was spent on the care of this complex patient more than 50% of the time was spent in counseling and care coordination. Objective - Vital Signs Vital signs: Vital Signs Temp 97.8 F 01/28/22 08:00 Pulse 76 01/28/22 08:00 Resp 18 01/28/22 08:00 BP 164/95 01/28/22 08:00 Pulse Ox 98 01/28/22 08:00 Intake & Output 01/27/22 01/28/22 01/28/22 18:59 06:59 18:59 Intake Total 240 Balance 240 Weight 58.967 kg 58.967 kg Intake: Oral 240 Other: Voiding Method Toilet # Voids 1 - Labs CBC & Chem 7: 01/28/22 06:31 01/28/22 06:31 Labs: Abnormal Lab Results - Last 24 Hours (Table) 01/28/22 01/28/22 Range/Units 06:31 06:31 WBC 15.1 H (3.8-10.6) k/uL RBC 3.47 L (3.80-5.40) m/uL MCV 108.4 H D (80.0-100.0) fL Neutrophils # 13.8 H (1.3-7.7) k/uL Lymphocytes # 0.8 L (1.0-4.8) k/uL Creatinine 0.48 L (0.52-1.04) mg/dL Microbiology - Last 24 Hours (Table) 01/27/22 12:42 Blood Culture - Preliminary Blood No Growth after 24 hours 01/27/22 12:42 Blood Culture - Preliminary Blood No Growth after 24 hours 01/27/22 17:47 Gram Stain - Preliminary Face Wound Culture - Preliminary 01/27/22 16:17 Gram Stain - Preliminary Face Wound Culture - Preliminary
[2022-01-28] MEDS: ACETAMINOPHEN IV (For NPO) 1,000 MG in EMPTY BAG 1 BAG IVPB SCH ×2 (18:08→20:14)
--- NOTE | 2022-01-28 20:03 | PN ---
PROGRESS NOTE DATE OF SERVICE: 01/28/2022. SUBJECTIVE: Vital signs are stable. Patient remains afebrile. She states that her face still feels somewhat tight, but it actually feels a little bit better to her. She is having trouble sleeping at night, however. Cultures are pending. OBJECT: HEENT: Examination of the right face immediately reveals that the right facial swelling over the parotid area has markedly decreased by probably 50%. Also, the swelling in the neck and anterior chest wall has also decreased. However, there is still moderate tenderness to deep palpation of the right parotid, right neck and right anterior chest. Once again, I do not detect evidence of any fluctuance. The previously noted draining wound on the patient's chin appears to be trying to heal by granulation. I still do not detect any significant neck lymphadenopathy. The remainder of the head and neck exam is unremarkable. ASSESSMENT: Right facial cellulitis, chin abscess with spontaneous draining. PLAN: Continue present course of antibiotics and steroids. Hopefully this patient will continue to improve. At some point I would expect that her pain will also markedly decrease. I"m going to order a cook chill technician ump and Ofirmev IV for better pain control. I will continue to see the patient daily until I feel she has progressed to the point that she is nearing discharge. Certainly her discharge, depending upon the cultures, and may entail insertion of an IV port or at the very least high-dose oral antibiotics for 10 days to 2 weeks. KRANTHI / MISN: [id number] / MTDD
[2022-01-28] MEDS: ATORVASTATIN 80 MG TAB PO SCH (20:15)
[2022-01-28] MEDS: DONEPEZIL 10 MG TAB PO SCH (20:16)
[2022-01-28] MEDS: HEPARIN SODIUM,PORCINE/PF 5,000 UNIT/0.5 ML SYRINGE SQ SCH (23:50)
[2022-01-29] MEDS: ACETAMINOPHEN IV (For NPO) 1,000 MG in EMPTY BAG 1 BAG IVPB SCH ×2 (01:53→08:12)
[2022-01-29] MEDS: AMPICILLIN-SULBACTAM 3 GM in SODIUM CHLORIDE 0.9% 100 ML IVPB SCH ×4 (04:23→20:53)
[2022-01-29] MEDS: VANCOMYCIN 1,250 MG in SODIUM CHLORIDE 0.9% 250 ML IVPB SCH (06:42)
[2022-01-29] MEDS: DEXAMETHASONE SOD PHOSPHATE 10 MG/ML 1 ML VIAL IVP SCH ×2 (06:42→16:22)
[2022-01-29] MEDS: SODIUM CHLORIDE 0.9% 1,000 ML IV SCH ×3 (06:42→20:53)
[2022-01-29 07:45] LABS: African American GFR (CKD) >90 (>60 ml/min/1.73 sqM); Non-African American GFR(CKD) >90 (>60 ml/min/1.73 sqM)
[2022-01-29] MEDS: NICOTINE 21MG/24HR PATCH TRANSDERM SCH (08:12)
[2022-01-29] MEDS: PREGABALIN 100 MG CAP PO SCH ×2 (08:13→20:52)
[2022-01-29] MEDS: METOPROLOL TARTRATE 25 MG TAB PO SCH ×2 (08:13→20:52)
[2022-01-29] MEDS: BACLOFEN 10 MG TAB PO SCH ×2 (08:13→20:52)
[2022-01-29] MEDS: clonazePAM 1 MG TAB PO SCH ×2 (08:13→20:53)
[2022-01-29] MEDS: lisinopriL 10 MG TAB PO SCH (08:13)
[2022-01-29] MEDS: HEPARIN SODIUM,PORCINE/PF 5,000 UNIT/0.5 ML SYRINGE SQ SCH ×3 (08:13→23:41)
[2022-01-29] MEDS: FERROUS SULFATE 325 MG TAB PO SCH ×2 (08:13→20:52)
[2022-01-29] MEDS: HYDROmorphone PCA 10 MG/50 ML BAG IV PRN ×2 (09:06→21:51)
--- NOTE | 2022-01-29 09:56 | P.PN ---
Subjective Progress Note Date: 01/29/22 No new complaints today, reports swelling has improved. No plans for surgery at this time. Wound Cx growing presumptive staph, pending sensitivities, final speciation. Objective - Vital Signs Vital signs: Vital Signs Temp 98 F 01/29/22 01:30 Pulse 73 01/29/22 01:30 Resp 16 01/29/22 01:30 BP 145/84 01/29/22 01:30 Pulse Ox 98 01/29/22 01:30 Intake & Output 01/28/22 01/29/22 01/29/22 18:59 06:59 18:59 Intake Total 480 1400 Balance 480 1400 Intake: Intake, IV Titration 1100 Amount Ampicillin-Sulbactam 3 gm 200 In Sodium Chloride 0.9% 100 ml @ 200 mls/hr IVPB Q6H [facility] Rx#:[id number] Sodium Chloride 0.9% 1, 900 000 ml @ 130 mls/hr IV . Q7H42M [facility] Rx#:[id number] Oral 480 300 Other: Voiding Method Toilet # Voids 3 - Exam Gen: awake, alert HEENT: normocephalic, atraumatic, good hearing acuity, moist mucous membranes Resp: good air exchange, breathing comfortably with no accessory muscle use CVS: good distal perfusion x 4, GI: soft, NTTP, ND : no SPT, no CVAT, benítez catheter not present MSK: no pitting edema, no clubbing Neuro: non-focal, moving all extremities Psych: cooperative, euthymic mood - Labs CBC & Chem 7: 01/28/22 06:31 01/29/22 07:14 Labs: Abnormal Lab Results - Last 24 Hours (Table) 01/29/22 Range/Units 07:14 Creatinine 0.49 L (0.52-1.04) mg/dL Microbiology - Last 24 Hours (Table) 01/27/22 16:17 Gram Stain - Preliminary Face Wound Culture - Preliminary Presumptive Staph aureus 01/27/22 17:47 Gram Stain - Preliminary Face Wound Culture - Preliminary Presumptive Staph aureus 01/27/22 12:42 Blood Culture - Preliminary Blood No Growth after 24 hours 01/27/22 12:42 Blood Culture - Preliminary Blood No Growth after 24 hours Assessment and Plan Assessment: Soft tissue cellulitis right face with right parotitis and small draining chin abscess with sepsis, failed outpatient treatment - ENT and ID recs - Decadromulo villalobossyn, Padmao - Consult ID - Patient to let nursing know if she develops difficulty with secretions and swallowing - ICE chips and meds - add toradol and change morphine to dilaudid - await culutures obtained on 01/27/22 HTN - metoprolol and lisinopril - follow BP HLD - statin Tobacco abuse - nicotine replacement Chronic: Ulcerative colitis MS Anxiety - resume home meds DVT prophylaxis: Heparin Discussed with: Nursing Anticipated discharge: pending clinical course Anticipated discharge place: home A total of 45 minutes was spent on the care of this complex patient more than 50% of the time was spent in counseling and care coordination.
[2022-01-29] MEDS ORDERED: TEMAZEPAM 30 MG CAP PO PRN (14:18)
[2022-01-29] MEDS ORDERED: VANCOMYCIN TROUGH DUE 1 EACH MISC MISCELLANE ONE (16:00)
[2022-01-29 19:45] VITALS: RESP 18
[2022-01-29] MEDS: DONEPEZIL 10 MG TAB PO SCH (20:52)
[2022-01-29] MEDS: ATORVASTATIN 80 MG TAB PO SCH (20:53)
[2022-01-29] MEDS ORDERED: TEMAZEPAM 15 MG CAP PO PRN (20:55)
--- NOTE | 2022-01-29 23:03 | P.PN ---
Subjective Progress Note Date: 01/28/22 Principal diagnosis: Facial cellulitis Patient is a 61-year-old female presented to the hospital with right- sided facial swelling and redness in this patient started having a pimple on the chin area. Patient tried to squeeze CT did not show any evidence of drainable abscess. On today's evaluation that is 01/28/2022, the patient denies having any fever or chills, patient right-sided facial and chin swelling has slightly decreased, the patient denies having any chest pain shortness of breath or cough no abdominal pain and no diarrhea Objective - Vital Signs Vital signs: Vital Signs Temp 97.9 F 01/28/22 20:00 Pulse 89 01/28/22 20:00 Resp 16 01/28/22 20:00 BP 154/89 01/28/22 20:00 Pulse Ox 99 01/28/22 20:00 Intake & Output 01/28/22 01/28/22 01/29/22 06:59 18:59 06:59 Intake Total 480 Balance 480 Weight 58.967 kg Intake: Oral 480 Other: Voiding Method Toilet Toilet # Voids 1 - Exam GENERAL DESCRIPTION: Middle-age female lying in bed in no distress HEENT: Patient right-sided facial swelling has slightly decreased RESPIRATORY SYSTEM: Unlabored breathing , decreased breath sounds at bases HEART: S1 S2 regular rate and rhythm , ABDOMEN: Soft , no tenderness EXTREMITIES: No edema feet - Labs CBC & Chem 7: 01/28/22 06:31 01/29/22 07:14 Labs: Abnormal Lab Results - Last 24 Hours (Table) 01/28/22 01/28/22 Range/Units 06:31 06:31 WBC 15.1 H (3.8-10.6) k/uL RBC 3.47 L (3.80-5.40) m/uL MCV 108.4 H D (80.0-100.0) fL Neutrophils # 13.8 H (1.3-7.7) k/uL Lymphocytes # 0.8 L (1.0-4.8) k/uL Creatinine 0.48 L (0.52-1.04) mg/dL Microbiology - Last 24 Hours (Table) 01/27/22 16:17 Gram Stain - Preliminary Face Wound Culture - Preliminary Presumptive Staph aureus 01/27/22 17:47 Gram Stain - Preliminary Face Wound Culture - Preliminary Presumptive Staph aureus 01/27/22 12:42 Blood Culture - Preliminary Blood No Growth after 24 hours 01/27/22 12:42 Blood Culture - Preliminary Blood No Growth after 24 hours Assessment and Plan (1) Facial cellulitis Current Visit: Yes Status: Acute Code(s): L03.211 - CELLULITIS OF FACE SNOMED Code(s): 240897408 Plan: 1patient presented to hospital with extensive right-sided facial cellulitis apparently started with a small area of pimple on the chin with the patient tried to squeeze and more likely need to cover for the gram-positive skin yady to the likely pathogen and less likely oral yady. 2patient to continue with the Unasyn and vancomycin pharmacy to dose target trough of 15 while watching kidney function and vancomycin trough closely, while waiting for the cultures to finalize Time with Patient: Less than 30
--- NOTE | 2022-01-29 23:05 | P.PN ---
Subjective Progress Note Date: 01/29/22 Principal diagnosis: Facial cellulitis Patient is a 61-year-old female presented to the hospital with right- sided facial swelling and redness in this patient started having a pimple on the chin area. Patient tried to squeeze CT did not show any evidence of drainable abscess. On today's evaluation that is 01/29/2022, the patient is afebrile, patient right-sided facial and chin swelling and pain has decreased in intensity, the patient denies having any chest pain shortness of breath or cough no abdominal pain and no diarrhea, the patient wants her diet to be advanced Objective - Vital Signs Vital signs: Vital Signs Temp 97.7 F 01/29/22 08:00 Pulse 75 01/29/22 08:00 Resp 17 01/29/22 08:00 BP 169/70 01/29/22 08:00 Pulse Ox 99 01/29/22 08:00 Intake & Output 01/28/22 01/29/22 01/29/22 18:59 06:59 18:59 Intake Total 480 1400 Balance 480 1400 Intake: Intake, IV Titration 1100 Amount Ampicillin-Sulbactam 3 gm 200 In Sodium Chloride 0.9% 100 ml @ 200 mls/hr IVPB Q6H [facility] Rx#:[id number] Sodium Chloride 0.9% 1, 900 000 ml @ 130 mls/hr IV . Q7H42M [facility] Rx#:[id number] Oral 480 300 Other: Voiding Method Toilet # Voids 3 - Exam GENERAL DESCRIPTION: Middle-age female lying in bed in no distress HEENT: Patient right-sided facial swelling has much improved RESPIRATORY SYSTEM: Unlabored breathing , decreased breath sounds at bases HEART: S1 S2 regular rate and rhythm , ABDOMEN: Soft , no tenderness EXTREMITIES: No edema feet - Labs CBC & Chem 7: 01/28/22 06:31 01/29/22 07:14 Labs: Abnormal Lab Results - Last 24 Hours (Table) 01/29/22 Range/Units 07:14 Creatinine 0.49 L (0.52-1.04) mg/dL Microbiology - Last 24 Hours (Table) 01/27/22 16:17 Gram Stain - Preliminary Face Wound Culture - Preliminary Presumptive Staph aureus 01/27/22 17:47 Gram Stain - Preliminary Face Wound Culture - Preliminary Presumptive Staph aureus 01/27/22 12:42 Blood Culture - Preliminary Blood No Growth after 24 hours 01/27/22 12:42 Blood Culture - Preliminary Blood No Growth after 24 hours Assessment and Plan (1) Facial cellulitis Current Visit: Yes Status: Acute Code(s): L03.211 - CELLULITIS OF FACE SNOMED Code(s): 539269726 Plan: 1patient presented to hospital with extensive right-sided facial cellulitis apparently started with a small area of pimple on the chin with the patient tried to squeeze and more likely need to cover for the gram-positive skin yady, patient culture have been finalized with possible MSSA, patient to continue with the Unasyn and vancomycin discontinued, he will keep the patient on IV antibiotics for the 24to 48 hour before transitioning her to oral antibiotics Time with Patient: Less than 30
[2022-01-30] MEDS: AMPICILLIN-SULBACTAM 3 GM in SODIUM CHLORIDE 0.9% 100 ML IVPB SCH ×2 (03:43→09:42)
--- NOTE | 2022-01-30 06:09 | PN ---
PROGRESS NOTE SUBJECTIVE: Vital signs stable. The patient states that she feels markedly better. She is having significantly less pain at this time. She does state that the lesion on her chin occasionally drains. OBJECTIVE: HEENT: Patient is normocephalic. Examination of the right facial area reveals that the swelling of the right face/right parotid area has essentially resolved back to normal. Palpation of the area reveals only mild discomfort, no areas of fluctuance. Palpation of the neck and anterior chest also reveals markedly reduced swelling, only mild pain to deep palpation, and no fluctuance. The lesion on the anterior chin appears that it is trying to heal by secondary intention and will probably continue to drain for a little while longer. ASSESSMENT: 1. Right facial cellulitis. 2. Abscess of the chin. PLAN: The patient's culture did not show evidence of MRSA and that is great. Therefore, from an ENT standpoint, this patient could be discharged home at any time on a 10 day regimen of the antibiotic of your choice. She may follow up with her family physician and I will not need to see her for any followup. I want to take this opportunity to thank you for allowing me to assist in the care of your patient. I will sign off this patient at this time. MMODL / IJN: [id number] / MTDJas
[2022-01-30] MEDS: SODIUM CHLORIDE 0.9% 1,000 ML IV SCH (06:16)
[2022-01-30] MEDS ORDERED: lisinopriL 20 MG TAB PO SCH (09:00)
[2022-01-30] MEDS ORDERED: amLODIPine 10 MG TAB PO SCH (09:00)
[2022-01-30] MEDS: FERROUS SULFATE 325 MG TAB PO SCH (09:41)
[2022-01-30] MEDS: BACLOFEN 10 MG TAB PO SCH (09:41)
[2022-01-30] MEDS: clonazePAM 1 MG TAB PO SCH (09:41)
[2022-01-30] MEDS: PREGABALIN 100 MG CAP PO SCH (09:41)
[2022-01-30] MEDS: HYDROcodone/APAP 10-325MG 1 EACH TAB PO PRN (09:41)
[2022-01-30] MEDS: METOPROLOL TARTRATE 25 MG TAB PO SCH (09:41)
[2022-01-30] MEDS: NICOTINE 21MG/24HR PATCH TRANSDERM SCH (09:42)
[2022-01-30] MEDS: HEPARIN SODIUM,PORCINE/PF 5,000 UNIT/0.5 ML SYRINGE SQ SCH (09:42)
[2022-01-30 11:06] VITALS: TEMP 97.5
--- NOTE | 2022-01-30 12:45 | P.DS ---
Providers Date of admission: 01/27/22 14:22 Expected date of discharge: 01/30/22 Attending physician: Olimpia Guaman DO Consults: 01/27/22 14:54 Consult Physician Routine Consulting Provider: Raj Fernandez Consult Reason/Comments: facial edema/cellulitis/abscess Do you want consulting provider notified?: Already Contacted 01/27/22 14:55 Consult Physician Routine Consulting Provider: Reggie Lanier Consult Reason/Comments: Facial edema/cellulitis Do you want consulting provider notified?: Yes Primary care physician: Cm Joseph MD Hospital Course: Patient is a 61-year-old female with hypertension, dyslipidemia, ulcerative colitis, and migraine headaches who presented to the ER with complaints of facial abscess. In the ER she underwent an extensive evaluation. On arrival she was slightly hypertensive with systolic blood pressure 173. Laboratory analysis showed a white blood cell count of 20. Sodium 135. Lactic acid was low at 0.6. CT of the neck demonstrated sensitive acute inflammatory process involving the soft tissue of the right side of the face and upper not with extension inferior to the upper chest wall possible cellulitis or other soft tissue infection, not rule out developing abscess. She was seen by ENT and ID. Soft tissue cellulitis right face with right parotitis and small draining chin abscess with sepsis, failed outpatient treatment - Treated with Decadron, unasyn, Vanco. Wound cultures grew MSSA, decadron and vancomycin were discontinued. ENT did not feel surgical intervention required due to abscess starting to drain on its own. Pt was then transitioned to oral augmentin and discharged with 14 additional days of antibiotics. She will f/u with PCP. HTN - metoprolol and lisinopril; lisinopril was uptitrated to 20mg daily, amlodipine 10mg daily was added on discharge. HLD - statin continued Tobacco abuse - nicotine replacement, cessation counseling provided Chronic: Ulcerative colitis MS Anxiety - resumed home meds with changes noted above I spent 38 minutes coordinating this complex discharge. Assessment: Gen: awake, alert HEENT: normocephalic, atraumatic, good hearing acuity, moist mucous membranes Resp: good air exchange, breathing comfortably with no accessory muscle use CVS: good distal perfusion x 4, GI: soft, NTTP, ND : no SPT, no CVAT, benítez catheter not present MSK: no pitting edema, no clubbing Neuro: non-focal, moving all extremities Psych: cooperative, euthymic mood Patient Condition at Discharge: Good Plan - Discharge Summary Discharge Rx Participant: No New Discharge Prescriptions: New amLODIPine [Norvasc] 10 mg PO DAILY #30 tab Acetaminophen Tab [Tylenol] 650 mg PO Q6HR PRN tab PRN Reason: Mild Pain Or Fever > 100.5 lisinopriL [Zestril] 20 mg PO DAILY #30 tab Continue clonazePAM [Clonazepam] 1 mg PO BID Diphenox-Atrop 2.5-0.025 mg [Lomotil] 2 tab PO QID PRN PRN Reason: Diarrhea Baclofen [Lioresal] 20 mg PO BID traMADol HCl [Ultram] 50 mg PO TID PRN PRN Reason: Pain HYDROcodone/APAP 10-325MG [[place] 10-325] 1 tab PO QID PRN PRN Reason: Pain modafiniL [Provigil] 200 mg PO BID Ergocalciferol (Vitamin D2) [Drisdol (50,000 Iu)] 50,000 unit PO KELLEY Ferrous Sulfate [Iron (65 MG Elemental)] 325 mg PO BID Donepezil HCl [Aricept] 10 mg PO HS Acyclovir 400 mg PO TID PRN PRN Reason: OUTBREAK Albuterol Sulfate [Proair Hfa] 2 puff INHALATION RT-Q6H PRN PRN Reason: Shortness Of Breath Atorvastatin [Lipitor] 80 mg PO HS Pregabalin [Lyrica] 200 mg PO BID Butalb/APAP/Caff 50-325-40Mg [Fioricet 50-325-40] 1 tab PO Q8H PRN PRN Reason: Migraine Headache Metoprolol Tartrate [Lopressor] 25 mg PO BID Amoxic-Pot Clav 875-125Mg [Augmentin 875-125] 1 tab PO BID 14 Days #28 tab Discontinued lisinopriL [Zestril] 10 mg PO DAILY Discharge Medication List Baclofen [Lioresal] 20 mg PO BID 12/10/14 [History] Diphenox-Atrop 2.5-0.025 mg [Lomotil] 2 tab PO QID PRN 12/10/14 [History] clonazePAM [Clonazepam] 1 mg PO BID 12/10/14 [History] traMADol HCl [Ultram] 50 mg PO TID PRN 12/10/14 [History] HYDROcodone/APAP 10-325MG [[place] 10-325] 1 tab PO QID PRN 09/22/15 [History] Ergocalciferol (Vitamin D2) [Drisdol (50,000 Iu)] 50,000 unit PO KELLEY 07/01/20 [History] modafiniL [Provigil] 200 mg PO BID 07/01/20 [History] Butalb/APAP/Caff 50-325-40Mg [Fioricet 50-325-40] 1 tab PO Q8H PRN 08/16/21 [History] Donepezil HCl [Aricept] 10 mg PO HS 08/16/21 [History] Ferrous Sulfate [Iron (65 MG Elemental)] 325 mg PO BID 08/16/21 [History] Pregabalin [Lyrica] 200 mg PO BID 08/16/21 [History] Acyclovir 400 mg PO TID PRN 01/27/22 [History] Albuterol Sulfate [Proair Hfa] 2 puff INHALATION RT-Q6H PRN 01/27/22 [History] Atorvastatin [Lipitor] 80 mg PO HS 01/27/22 [History] Metoprolol Tartrate [Lopressor] 25 mg PO BID 01/27/22 [History] Acetaminophen Tab [Tylenol] 650 mg PO Q6HR PRN tab 01/30/22 [Rx] Amoxic-Pot Clav 875-125Mg [Augmentin 875-125] 1 tab PO BID 14 Days #28 tab 01/30/22 [Rx] amLODIPine [Norvasc] 10 mg PO DAILY #30 tab 01/30/22 [Rx] lisinopriL [Zestril] 20 mg PO DAILY #30 tab 01/30/22 [Rx] Follow up Appointment(s)/Referral(s): Cm Joseph MD [Primary Care Provider] - 1-2 days Discharge Disposition: HOME SELF-CARE
[2022-01-30 13:27] VITALS: BP 159/82; PULSE 99
--- NOTE | 2022-01-30 15:26 | P.PN ---
Subjective Progress Note Date: 01/30/22 Principal diagnosis: Facial cellulitis Patient is a 61-year-old female presented to the hospital with right- sided facial swelling and redness in this patient started having a pimple on the chin area. Patient tried to squeeze CT did not show any evidence of drainable abscess. On today's evaluation that is 01/30/2022, the patient remains to be afebrile, patient right-sided facial and chin swelling and pain has significantly decreased in intensity, the patient denies having any chest pain shortness of breath or cough no abdominal pain and no diarrhea with antibiotic therapy Objective - Vital Signs Vital signs: Vital Signs Temp 97.5 F L 01/30/22 08:00 Pulse 102 H 01/30/22 08:00 Resp 18 01/30/22 08:00 BP 178/95 01/30/22 08:00 Pulse Ox 98 01/30/22 08:00 Intake & Output 01/29/22 01/30/22 01/30/22 18:59 06:59 18:59 Intake Total 120 240 Balance 120 240 Intake: Oral 120 240 Other: # Voids 2 1 - Exam GENERAL DESCRIPTION: Middle-age female lying in bed in no distress HEENT: Patient right-sided facial swelling has much improved RESPIRATORY SYSTEM: Unlabored breathing , decreased breath sounds at bases HEART: S1 S2 regular rate and rhythm , ABDOMEN: Soft , no tenderness EXTREMITIES: No edema feet - Labs CBC & Chem 7: 01/28/22 06:31 01/29/22 07:14 Labs: Microbiology - Last 24 Hours (Table) 01/27/22 17:47 Gram Stain - Final Face Wound Culture - Final Staphylococcus aureus 01/27/22 16:17 Gram Stain - Final Face Wound Culture - Final Staphylococcus aureus 01/27/22 12:42 Blood Culture - Preliminary Blood No Growth after 48 hours 01/27/22 12:42 Blood Culture - Preliminary Blood No Growth after 48 hours Assessment and Plan (1) Facial cellulitis Status: Acute Code(s): L03.211 - CELLULITIS OF FACE SNOMED Code(s): 299431107 Plan: 1patient presented to hospital with extensive right-sided facial cellulitis apparently started with a small area of pimple on the chin with the patient tried to squeeze and more likely need to cover for the gram-positive skin yady, patient culture have been finalized as MSSA patient showing overall clinical improvement with the Unasyn she will finish therapy with oral Augmentin 875 twice a day for 2 weeks and close outpatient follow-up Time with Patient: Less than 30
[2022-02-01] MEDS ORDERED: ERGOCALCIFEROL 1,250 MCG (50,000 IU) CAPSULE PO SCH (08:30)
== END 2022-01-30 14:26 | disposition home or self-care (01) ==
LOC: EC 10:33 → 1SOBS 14:22 → INTOOBSV 14:22 → 5NMEDONC 16:24 → 3SCARD 17:56 → UNDODISIN 01-30 14:26
PROVIDERS: ADMIT Internal Medicine; ATTEND Internal Medicine
DX: A41.9 Sepsis, unspecified organism (principal); L02.01 Cutaneous abscess of face; L03.211 Cellulitis of face; L03.221 Cellulitis of neck; J43.9 Emphysema, unspecified; K11.20 Sialoadenitis, unspecified; K51.90 Ulcerative colitis, unspecified, without complications; B95.61 Methicillin susceptible Staphylococcus aureus infection as the cause of diseases classified elsewhere; E78.5 Hyperlipidemia, unspecified; F17.210 Nicotine dependence, cigarettes, uncomplicated; F32.A Depression, unspecified; F41.9 Anxiety disorder, unspecified; G35 Multiple sclerosis; G43.909 Migraine, unspecified, not intractable, without status migrainosus; I10 Essential (primary) hypertension; M79.7 Fibromyalgia; R13.10 Dysphagia, unspecified; E78.00 Pure hypercholesterolemia, unspecified; M19.90 Unspecified osteoarthritis, unspecified site; Z79.899 Other long term (current) drug therapy; M51.36 Other intervertebral disc degeneration, lumbar region; J34.3 Hypertrophy of nasal turbinates; J34.2 Deviated nasal septum; Z71.6 Tobacco abuse counseling; Z71.9 Counseling, unspecified; Z80.3 Family history of malignant neoplasm of breast
CPT/HCPCS: 96376 ×3; 96361 ×3; 96366 ×4; 96367; 96372 ×3; 96365; 96375; 99284; 36415; 80053; 80048; 82565; 83605; 85025 ×2; 87040; 87070; 87205; 87077; 87186; 70491; G0378 ×6; S4990 ×4; J3370 ×3; J2060; J2270 ×2; J1100 ×3; J1885; J1170 ×4; J0295 ×4; Q9967; J1644 ×3

== ENCOUNTER 2024-05-25 15:01 | Inpatient (IN) | payer OTHER ==
[2024-05-25] MEDS: IPRATROPIUM 0.5 MG/2.5 ML NEBU INHALATION STA (15:58)
[2024-05-25] MEDS: ALBUTEROL NEBULIZED 2.5 MG/3 ML INHALATION STA (15:58)
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
[2024-05-25] MEDS: SODIUM CHLORIDE 0.9% 500 ML 500 ML IV STA (16:47)
[2024-05-25] MEDS: methylPREDNISolone SOD SUCCI 125 MG/2 ML VIAL IV STA (16:51)
--- NOTE | 2024-05-25 16:53 | XR ---
EXAMINATION TYPE: XR chest 2V DATE OF EXAM: 05/25/2024 COMPARISON: 08/23/2020 HISTORY: 63 year-old female shortness of breath, difficulty breathing TECHNIQUE: AP and lateral views FINDINGS: Hyperinflation. Left heart margin obscured by adjacent pleural parenchymal opacity. Near complete whi teout left hemithorax with only a small portion of medial left apex aerated. There may be some mass e ffect onto the cardiomediastinum. IMPRESSION: COPD with new near complete white out of left hemithorax. Suggestion of some mass effect onto the car diac mediastinum.
[2024-05-25 16:56] LABS: HCT 27.8 % (34.0-46.0); HGB 8.5 gm/dL (11.4-16.0); Hypochromasia Moderate; MCH 30.5 pg (25.0-35.0); MCHC 30.4 g/dL (31.0-37.0); MCV 100.1 fL (80.0-100.0); Macrocytosis Slight; Mean Platelet Volume 9.4; Platelet Count 561 k/uL (150-450); RBC 2.77 m/uL (3.80-5.40); RDW 15.9 % (11.5-15.5)
[2024-05-25 17:11] LABS: WBC 40.2 k/uL (3.8-10.6)
[2024-05-25 17:15] LABS: ALT 65 U/L (4-34); African American GFR (CKD) >90 (>60 ml/min/1.73 sqM); Anion Gap 9 mmol/L; Blood Urea Nitrogen 14 mg/dL (7-17); Calcium 8.3 mg/dL (8.4-10.2); Carbon Dioxide 24 mmol/L (22-30); Chloride 98 mmol/L (98-107); Glucose 122 mg/dL (74-99); Non-African American GFR(CKD) >90 (>60 ml/min/1.73 sqM); Sodium 131 mmol/L (137-145)
[2024-05-25 17:19] LABS: Partial Thromboplastin Time 29.6 sec (22.0-30.0); Prothrombin Time 11.1 sec (10.0-12.5)
[2024-05-25 17:21] LABS: NT-Pro-B-Type Natriuretic Pept 2440 pg/mL
[2024-05-25 17:33] LABS: AST 98 U/L (14-36); Albumin 2.7 g/dL (3.5-5.0); Alkaline Phosphatase 147 U/L (38-126); Total Protein 5.7 g/dL (6.3-8.2)
[2024-05-25 17:34] LABS: Total Bilirubin 1.2 mg/dL (0.2-1.3)
[2024-05-25] MEDS ORDERED: VANCOMYCIN IV PER PHARMACY 1 EACH MISC MISCELLANE PRN (17:53)
[2024-05-25 18:01] LABS: Band Neutrophils % 2 %; Large Platelets Present; Lymphocytes # (M) 3.22 k/uL (1.0-4.8); Neutrophils % (M) 88 %; Nucleated Red Blood Cells 0 /100 WBC (0-0); Polychromasia Present; Total Cells Counted 100
[2024-05-25] MEDS: SODIUM CHLORIDE 0.9% 1,000 ML IV STA (19:06)
--- NOTE | 2024-05-25 19:09 | CT ---
EXAMINATION TYPE: CT angio chest CT DLP: 221.4 mGycm, Automated exposure control for dose reduction was used. DATE OF EXAM: 05/25/2024 5:57 PM COMPARISON: CLINICAL INDICATION:Female, 63 years old with history of malcolm pos dimer; SOB TECHNIQUE/CONTRAST: CTA scan of the thorax is performed with IV Contrast, patient injected with 100 ml mL of Isovue 370, MIP images are created and reviewed these are created on a separate workstation.. FINDINGS: Cardiomediastinal structures are slightly shifted towards the right. Heart appears within normal limi ts in size with grossly preserved enhancement of the chambers. Normal enhancement of the aorta with m ild/moderate atherosclerotic calcification along the arch and upper abdomen. Bovine arch configuratio n. No dissection or critical stenosis. Pulmonary trunk is not enlarged. There is no intrinsic pulmonary arterial filling defect seen to sugg est embolus. Multiple branches of the left pulmonary artery are splayed and displaced related to the findings below. Left hemithorax appears diffusely abnormal. There appears to be large loculated pleural fluid and nydia picious soft tissue densities throughout the pleura with evidence of mass effect including depression of the left hemidiaphragm and mild mass effect on cardiomediastinal structures. Abnormal appearance of the spleen, which abuts the undersurface of the left hemidiaphragm, suspicious for splenic involve ment. Left adrenal not well seen, could be involved as there is diffuse perisplenic fat stranding. There is a small to moderate amount of pericardial fluid and nodularity concerning for involvement. A dditional fluid and/or soft tissue seen to the right of the distal esophagus. Multiple multiple mildl y to moderately enlarged mediastinal nodes, subcarinal and paratracheal as well as left prevascular, may be involved. Visualized thyroid is grossly unremarkable. The central airways are patent. Left bronchial branches t aper into the areas of opacified lung. Right lung shows mild scarring and/or subsegmental atelectasis, otherwise clear. Left lung is almost fully collapsed with some hazy opacities in the aerated portions, especially towards the lower lobe, which may represent infiltrates. No clearly acute osseous abnormality. Mild degenerative changes of the spine. IMPRESSION: 1. No evidence of pulmonary arterial embolus. 2. Left hemithorax appears diffusely abnormal. Large loculated pleural fluid and suspicious soft tis jayda densities throughout the pleura with evidence of mass effect including depression of the left hem idiaphragm and mild mass effect on cardiomediastinal structures. Findings are highly concerning for m alignancy. Abnormal appearance of the spleen, which abuts the undersurface of the left hemidiaphragm, suspicious for splenic involvement. Left adrenal not well seen, could be involved as there is diffus e perisplenic fat stranding. 3. Small to moderate amount of pericardial fluid and nodularity concerning for involvement. Addition al fluid and/or soft tissue seen to the right of the distal esophagus. 4. Multiple multiple mildly to moderately enlarged mediastinal nodes, subcarinal and paratracheal as well as left prevascular, may be involved. 5. Left lung is almost fully collapsed with some hazy opacities in the aerated portions, especially towards the lower lobe, which may represent infiltrates.
[2024-05-25] MEDS: HYDROmorphone 1 MG/ML 1 ML SYRINGE IVP STA (19:23)
[2024-05-25] MEDS ORDERED: NALOXONE 0.4 MG/ML 1 ML VIAL IV PRN (19:25)
[2024-05-25] MEDS ORDERED: ONDANSETRON 4 MG/2 ML VIAL IVP PRN (19:25)
[2024-05-25] MEDS: IPRATROPIUM-ALBUTEROL 3 ML NEB INHALATION SCH (20:07)
[2024-05-25] MEDS: VANCOMYCIN 1,000 MG in SODIUM CHLORIDE 0.9% 250 ML IVPB SCH (21:44)
[2024-05-25] MEDS: DEXTROSE 50% SYRINGE 50 ML IVP STA (22:18)
[2024-05-25] MEDS: INSULIN REGULAR 100 UNIT/ML VIAL (IV) IV ONE (22:19)
[2024-05-26] MEDS: METOPROLOL TARTRATE 5 MG/5 ML VIAL IVP STA
[2024-05-26] MEDS: DILTIAZEM 125 MG in SODIUM CHLORIDE 0.9% 100 ML IV SCH (00:12)
[2024-05-26] MEDS: methylPREDNISolone SOD SUCCI 125 MG/2 ML VIAL IV SCH (00:20)
[2024-05-26] MEDS: FUROSEMIDE 10 MG/ML 2 ML VIAL IV ONE (04:15)
[2024-05-26 06:14] LABS: Glucose,Whole Blood 222 mg/dL (70-110)
[2024-05-26] MEDS: FUROSEMIDE 10 MG/ML 4 ML VIAL IV STA (06:26)
[2024-05-26] MEDS: FUROSEMIDE 10 MG/ML 4 ML VIAL ONE (06:26)
[2024-05-26 07:00] LABS: African American GFR (CKD) >90 (>60 ml/min/1.73 sqM); Non-African American GFR(CKD) >90 (>60 ml/min/1.73 sqM)
[2024-05-26 07:01] LABS: African American GFR (CKD) >90 (>60 ml/min/1.73 sqM); Anion Gap 8 mmol/L; Blood Urea Nitrogen 18 mg/dL (7-17); Calcium 8.9 mg/dL (8.4-10.2); Carbon Dioxide 28 mmol/L (22-30); Chloride 102 mmol/L (98-107); Glucose 200 mg/dL (74-99); Non-African American GFR(CKD) >90 (>60 ml/min/1.73 sqM); Potassium 4.9 mmol/L (3.5-5.1); Sodium 138 mmol/L (137-145)
--- NOTE | 2024-05-26 07:25 | XR ---
Kaci Daley Sherita 05-26-2024 EXAMINATION TYPE: XR chest 1V DATE OF EXAM: 05/26/2024 CLINICAL HISTORY: Difficulty breathing progress study. TECHNIQUE: Single AP portable frontal view of the chest is obtained. COMPARISON: CTA chest and chest x-ray from one day earlier FINDINGS: Moderate to large size left-sided nonsimple pleural fluid collection redemonstrated. Left mid to lower lung opacity favoring compressive atelectasis again seen. Right lung remains clear. Silh ouetting of left heart border redemonstrated. Osseous structures are intact. IMPRESSION: Persistent moderate to large size left-sided nonsimple fluid collection with associated l eft mid to lower lung atelectasis. No significant change from one day earlier.
[2024-05-26 07:33] LABS: Glucose,Whole Blood 264 mg/dL (70-110)
[2024-05-26 07:56] LABS: Glucose,Whole Blood 288 mg/dL (70-110)
[2024-05-26 08:13] LABS: HCT 29.7 % (34.0-46.0); HGB 8.7 gm/dL (11.4-16.0); Hypochromasia Marked; MCH 30.4 pg (25.0-35.0); MCHC 29.3 g/dL (31.0-37.0); Macrocytosis Moderate; Mean Platelet Volume 9.6; Platelet Count 605 k/uL (150-450); RBC 2.86 m/uL (3.80-5.40); RDW 15.9 % (11.5-15.5)
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
[2024-05-26] MEDS: propofoL 100 ML IV ONE (08:28)
--- NOTE | 2024-05-26 08:33 | XR ---
EXAMINATION TYPE: XR chest 1V portable DATE OF EXAM: 05/26/2024 Comparison: 05/26/2024 Clinical History: 63-year-old female with placement Findings: A portion of the left heart margin remains obscured by adjacent pleural parenchymal opacity. Extensiv e opacification throughout the left hemithorax persists with suggestion some mass effect on the cardi omediastinum. ET and NG tubes are satisfactory some increasing patchy opacity, probably atelectasis o f the right base. Impression: Ongoing large complex pleural effusions on the left with adjacent atelectasis and/or consolidation. S ome increasing patchy opacity, probably atelectasis of the right base.
[2024-05-26] MEDS: CISATRACURIUM 2 MG/ML 5 ML VIAL IV ONE ×2 (09:00→09:52)
[2024-05-26 09:04] LABS: WBC 54.7 k/uL (3.8-10.6)
[2024-05-26] MEDS: HYDROmorphone 1 MG/ML 1 ML SYRINGE IVP PRN (09:51)
--- NOTE | 2024-05-26 10:34 | PCN ---
PROCEDURE NOTE PROCEDURE PERFORMED: Left subclavian triple-lumen catheter. TRADE SHOW SPECIALIST: Dr. Klein. FIRST RESEARCH GREENHOUSE SUPERVISOR: Dr. Leta Underwood. There was informed consent, universal time-out, the procedure took place in room 262. PREOPERATIVE DIAGNOSIS: Administration of fluids and pressors. POSTOPERATIVE DIAGNOSIS: Administration of fluids and pressors. DESCRIPTION OF PROCEDURE: We used the left subclavian site. There was good blood return from all 3 ports. The catheter was sutured in place. Sterile dressing was applied by the nurse. There was no immediate complication. The tip of catheter was seen at the junction of right atrium and superior vena cava. Sterile dressing was applied by the nurse. The patient tolerated the procedure well. A chest x-ray was ordered. MMODL / IJN: [id number] /
[2024-05-26 10:39] LABS: ABG Base Excess -1.5 mmol/L; ABG HCO3 26 mmol/L (21-25); ABG Oxygen Saturation 99.2 % (94-97); ABG PCO2 61 mmHg (35-45); ABG PH 7.24 (7.35-7.45); ABG PO2 146 mmHg (83-108); ABG TCO2 28 mmol/L (19-24)
[2024-05-26 10:41] LABS: Allen Test Performed? no
--- NOTE | 2024-05-26 10:46 | XR ---
EXAMINATION TYPE: XR chest 1V confirm line plcmt DATE OF EXAM: 05/26/2024 COMPARISON: 05/26/2024 HISTORY: 63 year-old female line placement post left bronchoscopy TECHNIQUE: Single frontal view of the chest is obtained. FINDINGS: The ET tube appears to have been pulled back slightly now along the superior margin of the medial clavicular heads. NG tube in place. Consider advancing by 3 cm. Left subclavian CVC tip at th e lower SVC. Right lung and pleural space appear clear. Hyperinflation. Complex loculated large left pleural effusions redemonstrated. IMPRESSION: 1. ET tube pulled back slightly. Advance by 3 cm and reassess at follow-up. 2. Left subclavian CVC tip in the lower SVC. 3. Ongoing large complex left pleural effusions.
--- NOTE | 2024-05-26 10:58 | PCN ---
PROCEDURE NOTE PROCEDURES PERFORMED: Bronchoscopy, airway examination, therapeutic lavage, BAL left lower lobe, endobronchial biopsies left lower lobe, transbronchial biopsies left lower lobe, and brushes left lower lobe. PREOPERATIVE DIAGNOSIS: Rule out lung cancer versus pneumonia. POSTOPERATIVE DIAGNOSIS: Rule out lung cancer versus pneumonia. There was informed consent and universal timeout. The patient's procedure took place in room 262 in the intensive care unit. CREW BOSS: Dr. Klein. FIRST COMPOSITION WEATHERBOARD APPLIER: Dr. Leta Underwood. DESCRIPTION OF PROCEDURE: The patient was adequately sedated with propofol and also received some additional narcotic in the form of Dilaudid, and also a paralytic in the form of Nimbex. The patient was vented on 100% oxygen. The bronchoscope was inserted through the bronchoscope adapter, connected to the endotracheal tube. The bronchoscope was pushed through the endotracheal tube, out into the distal trachea. The tracheal jae was sharp. The right upper lobe and its 3 segments, right middle lobe and its 2 segments, right lower lobe and its 5 segments, were relatively normal except for some mild-to- moderate bronchitis, and purulent secretions which were suctioned. There was no dominant mass or tumor. On the left side, the left upper lobe proper and its 2 segments, and lingula with its 2 segments, reveal moderate bronchitis, with airway hyperemia and erythema, and thick purulent looking secretions. They were suctioned. In the left lower lobe, it appeared that there may be extrinsic compression of the left lower lobe bronchus. There was no endobronchial lesion. There were thick secretions noted throughout the left lower lobe. The airways were again erythematous and hyperemic with some mucosal friability. First we did brushes in the left lower lobe. Next, we did a formal BAL in the left lower lobe, and then finally, under direct visualization, we did endobronchial and transbronchial biopsies to the left lower lobe. The patient tolerated the procedure well. There was minimal bleeding. We ensured hemostasis, and the bronchoscope was then withdrawn. There was no immediate complication. A chest x-ray was ordered. There were no immediate complications. The patient did very well. MMODL / IJN: [id number] /
[2024-05-26] MEDS: NOREPINEPHRINE 4 MG in SODIUM CHLORIDE 0.9% 250 ML IV SCH (11:00)
[2024-05-26] MEDS: CHLORHEXIDINE GLUCONATE 15 ML CUP MUCOUS MEM SCH (11:15)
--- NOTE | 2024-05-26 11:19 | PCN ---
PROCEDURE NOTE PROCEDURE: Right radial art line. PREOPERATIVE DIAGNOSIS: Frequent blood draws, blood gas monitoring. POSTOPERATIVE DIAGNOSIS: Frequent blood draws, blood gas monitoring. LINOLEUM LAYER APPRENTICE: Dr. Klein. FIRST BOAT DECKHAND: Dr. Leta Underwood. The patient's procedure took place in room 262. There was informed consent and universal timeout. ARTERIAL LINE PLACEMENT: Indications: Hemodynamic monitoring. A time-out was completed verifying correct patient, procedure, site, positioning, and implant(s) or special equipment if applicable. Edgar's test was performed to ensure adequate perfusion. The patient's right wrist or right groin was prepped and draped in sterile fashion. 1% Lidocaine was used to anesthetize the area. An 18G Arrow arterial line was introduced into the right radial artery. The catheter was threaded over the guide wire and the needle was removed with appropriate pulsatile blood return. Blood loss was minimal. The catheter was then sutured in place to the skin and a sterile dressing applied. Perfusion to the extremity distal to the point of catheter insertion was checked and found to be adequate. The patient tolerated the procedure well and there were no complications. We used a right radial artery. There was good blood return and waveform. The catheter was sutured in place. Sterile dressing was applied by the nurse. There was no immediate complication. The patient tolerated the procedure well. MMODL / IJN: [id number] /
[2024-05-26] MEDS: LACTATED RINGERS 1,000 ML IV SCH (11:21)
[2024-05-26] MEDS: SODIUM CHLORIDE 0.9% 1,000 ML IV ONE (11:22)
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
[2024-05-26 13:07] LABS: Glucose,Whole Blood 218 mg/dL (70-110)
--- NOTE | 2024-05-26 13:19 | US ---
EXAMINATION TYPE: US chest DATE OF EXAM: 05/26/2024 COMPARISON: NONE CLINICAL INDICATION: Female, 63 years old with history of Left pleural effusion; left pleural effusio n TECHNIQUE: Targeted ultrasound of the posterior lower left hemithorax EXAM MEASUREMENTS: Left Pleural Effusion pocket size: 13.0 cm - complex, possible solid component noted within Left skin surface to fluid distance: 4.2 cm technical limitations, patient unable to sit upright on her own, needed assistance Right side NOT marked for possible thoracentesis outside the dept. Left side marked for possible thoracentesis outside the dept. Pulmonologists are able to review the images in the patient?s EMR. IMPRESSIONS: Complex left pleural effusion.
[2024-05-26 18:38] LABS: % Iron Saturation 17.22 (12.00-45.00)
[2024-05-26] MEDS: VANCOMYCIN TROUGH DUE 1 EACH MISC MISCELLANE ONE (18:42)
[2024-05-26 19:25] LABS: Appearance,BF Blood Tinged (Clear); RBC, Body Fluid 5610 /UL (0-2000)
[2024-05-26] MEDS: FORMOTEROL FUMARATE 20 MCG/2 ML NEBU INHALATION SCH (20:40)
[2024-05-26] MEDS: BUDESONIDE 1 MG/2 ML NEBU INHALATION SCH (20:40)
[2024-05-26] MEDS: SODIUM CHLORIDE 0.9% 80 ML with fentaNYL (PF) 1,000 MCG IV SCH ×2 (22:25→23:00)
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
[2024-05-26] MEDS ORDERED: SODIUM CHLORIDE 0.9% 80 ML with fentaNYL (PF) 1,000 MCG IV SCH (23:00)
[2024-05-27 05:41] LABS: African American GFR (CKD) >90 (>60 ml/min/1.73 sqM); Anion Gap 10 mmol/L; Blood Urea Nitrogen 21 mg/dL (7-17); Calcium 8.3 mg/dL (8.4-10.2); Carbon Dioxide 21 mmol/L (22-30); Chloride 108 mmol/L (98-107); Glucose 203 mg/dL (74-99); Non-African American GFR(CKD) >90 (>60 ml/min/1.73 sqM); Potassium 4.8 mmol/L (3.5-5.1); Sodium 139 mmol/L (137-145)
[2024-05-27 05:50] LABS: Anisocytosis Slight; HCT 22.2 % (34.0-46.0); Hypochromasia Marked; MCH 31.3 pg (25.0-35.0); MCHC 29.9 g/dL (31.0-37.0); MCV 104.5 fL (80.0-100.0); Macrocytosis Moderate; Mean Platelet Volume 9.8; Platelet Count 452 k/uL (150-450); RBC 2.12 m/uL (3.80-5.40); RDW 16.1 % (11.5-15.5)
[2024-05-27 06:00] LABS: ABG Base Excess 0.2 mmol/L; ABG HCO3 26 mmol/L (21-25); ABG Oxygen Saturation 98.9 % (94-97); ABG PCO2 44 mmHg (35-45); ABG PH 7.37 (7.35-7.45); ABG PO2 112 mmHg (83-108); ABG TCO2 27 mmol/L (19-24); Allen Test Performed? Yes
[2024-05-27 06:00] LABS: HGB 6.6 gm/dL (11.4-16.0)
[2024-05-27 06:02] LABS: WBC 73.5 k/uL (3.8-10.6)
--- NOTE | 2024-05-27 06:11 | XR ---
EXAMINATION TYPE: XR chest 1V portable DATE OF EXAM: 05/27/2024 CLINICAL HISTORY: Difficulty breathing progress study. TECHNIQUE: Single AP portable frontal view of the chest is obtained. COMPARISON: Chest x-ray from one day earlier FINDINGS: Stable endotracheal and orogastric tubes. Stable left-sided subclavian central venous cath eter. Nearly completely opacified left hemithorax with sparing in the left lung apex is redemonstrated and slightly worsened. There is silhouetting of left heart border and hemidiaphragm again seen. Right yadira g remains clear. Osseous structures are intact. IMPRESSION: Continued worsening left lung opacity likely reflecting worsening large left-sided pleura l effusion and associated left lung atelectasis and/or acute infiltrate.
[2024-05-27 06:58] LABS: Band Neutrophils % 4 %; Lymphocytes # (M) 0.74 k/uL (1.0-4.8); Monocytes # (M) 0.74 k/uL (0-1.0); Myelocytes # (M) 0.74 k/uL (0); Myelocytes % 1 %; Neutrophils % (M) 95 %; Nucleated Red Blood Cells 0 /100 WBC (0-0); Total Cells Counted 200
[2024-05-27] MEDS: VANCOMYCIN 1,000 MG in SODIUM CHLORIDE 0.9% 250 ML IVPB SCH (07:09)
[2024-05-27 09:44] LABS: Magnesium 1.9 mg/dL (1.6-2.3); Phosphorus 3.8 mg/dL (2.5-4.5)
--- NOTE | 2024-05-27 09:59 | XR ---
EXAMINATION TYPE: XR chest 1V portable DATE OF EXAM: 05/27/2024 CLINICAL HISTORY: Status post left-sided thoracentesis. TECHNIQUE: Single AP portable abdominal view of the chest is obtained. COMPARISON: Chest x-ray from earlier today FINDINGS: There is left-sided opacity after thoracentesis. There is persistent moderate-sized left-s ided pleural effusion. Stable endotracheal and orogastric tubes. Stable left-sided subclavian central venous catheter. Right lung is clear. There is nonvisualization of left heart border. Mild cardiomeg wilfred is seen. Osseous structures are intact. IMPRESSION: Improved left-sided pleural fluid collection after thoracentesis. Persistent small to mod erate-sized left-sided hydropneumothorax.
[2024-05-27] MEDS: CEFEPIME 2 GM in SODIUM CHLORIDE 0.9% 100 ML IVPB SCH (10:01)
--- NOTE | 2024-05-27 10:33 | P.PN ---
Subjective Progress Note Date: 05/27/24 HISTORY OF PRESENTING ILLNESS This is a 63-year-old with past medical history significant for hypertension, hyperlipidemia, ulcerative colitis, fibromyalgia, multiple sclerosis, anxiety, tobacco abuse, syncopal episodes in the past. 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 She is currently intubated and sedated and history is supplied by chart. Patient has been having worsening shortness breath over last few days. She has history of chronic bronchitis and chronic respiratory failure. Initially was seen in the ER however on floor she had respiratory distress and 18 was called and initially tried IV Lasix however could not tolerate and became tachycardic into And eventually intubated. D-dimer was elevated at 5.5 and therefore CTA was performed which showed no PE however large left pleural ef fusion and loculated left lung collapse and enlarged mediastinal lymphadenectomy concerning for malignancy and therefore oncology was consulted. Cardiology was consult that secondary to A. fib with RVR. Initial EKG showing sinus tachycardia with heart rate 118 bpm however repeat EKG at 23:26 showed A. fib with RVR with heart rate [address] or T wave abnormalities. No prior history of A. fib. She was placed on Cardizem drip with conversion to normal sinus rhythm and heart rates controlled after patient sedated on ventilator. She has been placed on low-dose norepinephrine. 05/27 Patient is seen and examined and remains in the intensive care unit. Patient remains intubated on mechanical ventilation with FiO2 of 60 decreased this morning to 50 and PEEP of 5. Pulse ox is 98%. Blood pressure 115/73, heart rate is in the 80s. Patient has been afebrile. Telemetry is sinus rhythm. Repeat blood work reveals WBC 73.5, hemoglobin 6.6, platelet count 452. Sodium 139, potassium 4.8, CO2 21, BUN 21 creatinine 0.38. Blood cultures are showing no growth. Patient is scheduled for transfusion 1 unit of packed RBCs today. Repeat chest x-ray reveals continued worsening left lung opacity likely reflecting worsening large left-sided pleural effusion and associated left lung atelectasis and/or acute infiltrate. Echo is pending. Cardizem is off. Patient underwent left thoracentesis this morning with removal of 1 and half liters of fluid. PHYSICAL EXAMINATION Vital signs reviewed. CONSTITUTIONAL: No apparent distress, ill appearing on vent HEENT: Head is normocephalic. Pupils are equal, round. Sclerae anicteric. Mucous membranes of the mouth are moist. No JVD. No carotid bruit. CHEST EXAMINATION: Decreased breath sounds on left HEART EXAMINATION: Regular rate and rhythm. S1, S2 heard. No murmurs, gallops or rub. ABDOMEN: Soft, nontender. Positive bowel sounds. EXTREMITIES: 2+ peripheral pulses, no lower extremity edema and no calf tenderness. NEUROLOGIC EXAMINATION: Patient is sedated ASSESSMENT Paroxysmal atrial fibrillation, new onset Acute on chronic respiratory failure with left lung collapse, left lung pleural effusion and lymphadenopathy, s/p left thoracentesis 05/27 History of COPD Hypertension Hyperlipidemia Fibromyalgia Hypotension may be related to sedation Acute anemia gradual for transfusion 1 unit packed RBCs PLAN Patient's main presentation of shortness breath related to left lung opacification and pleural effusion. Check 2-D echo. Patient had decompensation and unclear if A. fib actually cause decompensation or was during the same time period. Continue Cardizem drip as needed however discontinue currently with patient on vasopressors. If has recurrent episodes may consider rhythm management with amiodarone. Await further workup of pleural effusion and hold on anticoagulation pending any need for biopsy and anemia. CHADSVASC score appears to be 2 for hypertension and female Nurse practitioner note has been reviewed, I agree with documented findings and plan of care. Patient was seen and examined. Objective - Vital Signs Vital signs: Vital Signs Temp 98.0 F 05/27/24 04:00 Pulse 88 05/27/24 08:33 Resp 24 05/27/24 07:30 BP 115/73 05/27/24 07:30 Pulse Ox 98 05/27/24 07:30 FiO2 60 05/27/24 08:16 Intake & Output 05/26/24 05/27/24 05/27/24 18:59 06:59 18:59 Intake Total 2064.592 758.599 64.7 Output Total 715 630 135 Balance 1349.592 128.599 -70.3 Weight 54.431 kg 56 kg Intake: IV 1000 33 9 0.9 NACL bolus 1000 pressure bag 33 9 Intake, IV Titration 1064.592 725.599 55.7 Amount Diltiazem 125 mg In 96.667 Sodium Chloride 0.9% 100 ml @ 10 MG/HR 10 mls/hr IV .[id number] [facility] Rx#: [id number] Lactated Ringers 1,000 ml 800 500 @ 100 mls/hr IV .Q10H [facility] Rx#:[id number] Norepinephrine 4 mg In 19.182 Sodium Chloride 0.9% 250 ml @ 0.03 MCG/KG/MIN 6. 221 mls/hr IV .Q24H [facility] Rx#:[id number] Sodium Chloride 0.9% 80 23.135 55.7 ml @ 0.5 MCG/KG/HR 2.722 mls/hr IV .Q24H [facility] with fentaNYL (PF) 1,000 mcg Rx#:[id number] propofoL 1,000 mg In 148.743 202.464 Empty Bag 1 bag @ 15 MCG/ KG/MIN 4.899 mls/hr IV . [id number] [facility] Rx#:[id number] Output: Urine 715 630 135 ABP, PAP, CO, CI - Last Documented Arterial Blood Pressure 124/65 - Labs CBC & Chem 7: 05/27/24 05:00 05/27/24 05:00 Labs: Abnormal Lab Results - Last 24 Hours (Table) 05/26/24 05/26/24 05/26/24 Range/Units 06:11 10:00 10:35 WBC (3.8-10.6) k/uL RBC (3.80-5.40) m/uL Hgb (11.4-16.0) gm/dL Hct (34.0-46.0) % MCV (80.0-100.0) fL MCHC (31.0-37.0) g/dL RDW (11.5-15.5) % Plt Count (150-450) k/uL Neutrophils # (Manual) (1.3-7.7) k/uL Lymphocytes # (Manual) (1.0-4.8) k/uL Myelocytes # (Manual) (0) k/uL ESR (0-30) mm/Hr ABG pH 7.24 L (7.35-7.45) ABG pCO2 61 H (35-45) mmHg ABG pO2 146 H (83-108) mmHg ABG HCO3 26 H (21-25) mmol/L ABG Total CO2 28 H (19-24) mmol/L ABG O2 Saturation 99.2 H (94-97) % Chloride (98-107) mmol/L Carbon Dioxide (22-30) mmol/L BUN (7-17) mg/dL Creatinine (0.52-1.04) mg/dL Glucose (74-99) mg/dL POC Glucose (mg/dL) (70-110) mg/dL Calcium (8.4-10.2) mg/dL Iron (50-170) UG/DL TIBC (228-460) UG/DL Transferrin (204.0-354.0) mg/dL Ferritin (10.0-291.0) ng/mL Vitamin B12 (200.0-944.0) pg/mL Procalcitonin 9.74 H (0.02-0.09) ng/mL Fluid Appearance Blood Tinged A (Clear) 05/26/24 05/26/24 05/26/24 Range/Units 13:05 13:05 13:06 WBC (3.8-10.6) k/uL RBC (3.80-5.40) m/uL Hgb (11.4-16.0) gm/dL Hct (34.0-46.0) % MCV (80.0-100.0) fL MCHC (31.0-37.0) g/dL RDW (11.5-15.5) % Plt Count (150-450) k/uL Neutrophils # (Manual) (1.3-7.7) k/uL Lymphocytes # (Manual) (1.0-4.8) k/uL Myelocytes # (Manual) (0) k/uL ESR 51 H (0-30) mm/Hr ABG pH (7.35-7.45) ABG pCO2 (35-45) mmHg ABG pO2 (83-108) mmHg ABG HCO3 (21-25) mmol/L ABG Total CO2 (19-24) mmol/L ABG O2 Saturation (94-97) % Chloride (98-107) mmol/L Carbon Dioxide (22-30) mmol/L BUN (7-17) mg/dL Creatinine (0.52-1.04) mg/dL Glucose (74-99) mg/dL POC Glucose (mg/dL) 218 H (70-110) mg/dL Calcium (8.4-10.2) mg/dL Iron 26 L (50-170) UG/DL TIBC 151 L (228-460) UG/DL Transferrin 108.0 L (204.0-354.0) mg/dL Ferritin 1549.0 H (10.0-291.0) ng/mL Vitamin B12 1553.0 H (200.0-944.0) pg/mL Procalcitonin (0.02-0.09) ng/mL Fluid Appearance (Clear) 05/27/24 05/27/24 05/27/24 Range/Units 05:00 05:00 05:53 WBC 73.5 H* (3.8-10.6) k/uL RBC 2.12 L (3.80-5.40) m/uL Hgb 6.6 L* D (11.4-16.0) gm/dL Hct 22.2 L (34.0-46.0) % MCV 104.5 H (80.0-100.0) fL MCHC 29.9 L (31.0-37.0) g/dL RDW 16.1 H (11.5-15.5) % Plt Count 452 H (150-450) k/uL Neutrophils # (Manual) 72.70 H (1.3-7.7) k/uL Lymphocytes # (Manual) 0.74 L (1.0-4.8) k/uL Myelocytes # (Manual) 0.74 H (0) k/uL ESR (0-30) mm/Hr ABG pH (7.35-7.45) ABG pCO2 (35-45) mmHg ABG pO2 112 H (83-108) mmHg ABG HCO3 26 H (21-25) mmol/L ABG Total CO2 27 H (19-24) mmol/L ABG O2 Saturation 98.9 H (94-97) % Chloride 108 H (98-107) mmol/L Carbon Dioxide 21 L (22-30) mmol/L BUN 21 H (7-17) mg/dL Creatinine 0.38 L (0.52-1.04) mg/dL Glucose 203 H (74-99) mg/dL POC Glucose (mg/dL) (70-110) mg/dL Calcium 8.3 L (8.4-10.2) mg/dL Iron (50-170) UG/DL TIBC (228-460) UG/DL Transferrin (204.0-354.0) mg/dL Ferritin (10.0-291.0) ng/mL Vitamin B12 (200.0-944.0) pg/mL Procalcitonin (0.02-0.09) ng/mL Fluid Appearance (Clear) Microbiology - Last 24 Hours (Table) 05/25/24 15:45 Blood Culture - Preliminary Blood 05/25/24 16:00 Blood Culture - Preliminary Blood
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
--- NOTE | 2024-05-27 11:09 | PCN ---
PROCEDURE NOTE PULMONARY/CRITICAL CARE PROCEDURE NOTE: PROCEDURES PERFORMED: Left thoracentesis. PREOPERATIVE DIAGNOSIS: Left pleural effusion. POSTOPERATIVE DIAGNOSIS: Left pleural effusion. [employer]AT CAPTAIN: Dr. Leta Underwood. The patient's procedure took place in the ICU room 262. DESCRIPTION OF PROCEDURE: There was informed consent and universal timeout. I have discussed the risks, benefits and alternative therapies for the above-mentioned procedure and for both sedation/analgesia as well as necessary blood product administration, if indicated, as they pertain to this patient. The patient has indicated her understanding and acceptance of the risks and procedures discussed. The posterior left chest was marked by ultrasound. 1.5 L of milky, slightly green colored fluid was removed from the left pleural space. The patient tolerated the procedure well. The fluid will be sent for analysis including microbiology, cytology, and chemistry. The chest x-ray was ordered to rule out pneumothorax. The patient tolerated the procedure well. There was no immediate complication. MMODL / IJN: [id number] /
--- NOTE | 2024-05-27 11:09 | P.PN ---
Subjective Progress Note Date: 05/27/24 Principal diagnosis: Respiratory failure. Pulmonary consult dated May 26, 2024. 63-year-old female seen this morning in consultation. The patient was seen initially in the emergency department, on May 25. She apparently came in with complaints of shortness of breath, and low saturations. The patient has been treated recently for bronchitis with steroids and antibiotics. This morning, a rapid response was called on this patient, and, the charge nurse called me, to tell me that the patient would benefit from Lasix, and BiPAP. That was done initially, but subsequent to that, another rapid response was called on this patient, and the patient needed to be transferred to the intensive care unit, for intubation and mechanical ventilation. Currently, she is on volume assist- control, rate 20, tidal volume 350, FiO2 100%, PEEP of 5. She is on a Cardizem drip at 10 mg an hour for atrial fibrillation, propofol at 60 mcg/kg/min, and she is receiving some fluid, i.e. saline, at 1 L, as a fluid bolus. Afterwards, she will be switched to lactated Ringer's at 100 cc an hour. She had a an arterial line placed, and a central line placed. We did a right radial arterial line, and a left subclavian triple-lumen catheter. She was intubated by the [facility]. Current labs include a white count of 54.7, hemoglobin 8.7, hematocrit 29.7, and a platelet count of 605,000. Initial blood gases showed a pO2 of 146, pCO2 of 61, and pH is 7.24. The rate was increased from 28 to 24 breaths/min. In addition, the FiO2 was dropped down to 70%. Sodium 138, potassium 4.9, chlorides 102, CO2 28, BUN 18, creatinine 0.45. Glucose is 288. Calcium is 8.9. Lactic acid 1.3. The left chest reveals a pleural effusion, with possible loculations. An ultrasound was ordered. In addition, the patient had bronchoscopy, with airway examination, therapeutic lavage, BAL, brushings left lower lobe, and endobronchial and transbronchial biopsies left lower lobe. Progress note dated May 27, 2024. 63-year-old female seen in consultation yesterday. Please see the note above. The patient developed lopez respiratory failure, and was intubated, yesterday, May 26. She remains on mechanical ventilator. She is on volume assist- control, rate 24, tidal volume 350, FiO2 60%, to be reduced down to 50%, PEEP of 5. Blood gases show pO2 of 112, pCO2 44, pH is 7.37. The patient continues on propofol at 60 mcg/kg/min, norepinephrine at 7 mcg/min, fentanyl at 2 mcg/kg/h, LR at 100 cc an hour. The patient is on vancomycin, and we add cefepime. The patient had a left-sided thoracentesis today. 1.5 L of milky slightly green fluid was removed from the left pleural space. The patient's procalcitonin level is elevated 9.74. Current labs include a white count of 73.5, hemoglobin 6.6, hematocrit 22.2, platelet count 452,000. The patient will get 1 unit of PRBCs. In addition, sodium 139, potassium 4.8, chlorides 108, CO2 21, anion gap 10, BUN 21, creatinine 0.38. Calcium is 8.3. Magnesium is 1.9. Cultures are thus far negative. The postthoracentesis chest x-ray shows an improved left- sided pleural fluid collection, and a small to moderate size left-sided hydropneumothorax. Objective - Vital Signs Vital signs: Vital Signs Temp 98.2 F 05/27/24 08:00 Pulse 107 H 05/27/24 10:00 Resp 24 05/27/24 10:00 BP 121/80 05/27/24 10:00 Pulse Ox 100 05/27/24 10:00 FiO2 50 05/27/24 09:00 Intake & Output 05/26/24 05/27/24 05/27/24 18:59 06:59 18:59 Intake Total 2064.592 758.599 415.318 Output Total 715 630 150 Balance 1349.592 128.599 265.318 Weight 54.431 kg 56 kg Intake: IV 1000 33 112 0.9 NACL bolus 1000 Cefepime 2 gm In Sodium 100 Chloride 0.9% 100 ml @ 25 mls/hr IVPB Q8H [facility] Rx#: [id number] pressure bag 33 12 Intake, IV Titration 1064.592 725.599 293.318 Amount Diltiazem 125 mg In 96.667 Sodium Chloride 0.9% 100 ml @ 10 MG/HR 10 mls/hr IV .[id number] [facility] Rx#: [id number] Lactated Ringers 1,000 ml 800 500 @ 100 mls/hr IV .Q10H [facility] Rx#:[id number] Norepinephrine 4 mg In 19.182 237.618 Sodium Chloride 0.9% 250 ml @ 0.03 MCG/KG/MIN 6. 221 mls/hr IV .Q24H [facility] Rx#:[id number] Sodium Chloride 0.9% 80 23.135 55.7 ml @ 0.5 MCG/KG/HR 2.722 mls/hr IV .Q24H [facility] with fentaNYL (PF) 1,000 mcg Rx#:[id number] propofoL 1,000 mg In 148.743 202.464 Empty Bag 1 bag @ 15 MCG/ KG/MIN 4.899 mls/hr IV . [id number] [facility] Rx#:[id number] Tube Feeding 10 Output: Urine 715 630 150 ABP, PAP, CO, CI - Last Documented Arterial Blood Pressure 116/71 - Exam No acute distress, sedated, and intubated orally, with an oral NG tube. HEENT examination is grossly unremarkable. Neck supple. Full range of motion. No adenopathy thyromegaly or neck vein distention. Cardiovascular examination reveals regular rhythm rate. S1-S2 normal. No S3 or S4. No discernible murmur noted. Heart sounds are distant. Heart rate 85 bpm. Lungs reveal bilateral coarse rhonchi. No expiratory wheezes. No crackles. Breath sounds equal. Saturations are 98%, on 60% FiO2. Abdomen soft without bowel sounds. No masses or tenderness. Extremities are intact. No cyanosis clubbing or edema. Skin is without rash or lesion. Neurologic examination cannot be fully evaluated at this time. - Labs CBC & Chem 7: 05/27/24 05:00 05/27/24 05:00 Labs: Abnormal Lab Results - Last 24 Hours (Table) 05/26/24 05/26/24 05/26/24 Range/Units 06:11 10:00 13:05 WBC (3.8-10.6) k/uL RBC (3.80-5.40) m/uL Hgb (11.4-16.0) gm/dL Hct (34.0-46.0) % MCV (80.0-100.0) fL MCHC (31.0-37.0) g/dL RDW (11.5-15.5) % Plt Count (150-450) k/uL Neutrophils # (Manual) (1.3-7.7) k/uL Lymphocytes # (Manual) (1.0-4.8) k/uL Myelocytes # (Manual) (0) k/uL ESR (0-30) mm/Hr ABG pO2 (83-108) mmHg ABG HCO3 (21-25) mmol/L ABG Total CO2 (19-24) mmol/L ABG O2 Saturation (94-97) % Chloride (98-107) mmol/L Carbon Dioxide (22-30) mmol/L BUN (7-17) mg/dL Creatinine (0.52-1.04) mg/dL Glucose (74-99) mg/dL POC Glucose (mg/dL) (70-110) mg/dL Calcium (8.4-10.2) mg/dL Iron 26 L (50-170) UG/DL TIBC 151 L (228-460) UG/DL Transferrin 108.0 L (204.0-354.0) mg/dL Ferritin 1549.0 H (10.0-291.0) ng/mL Vitamin B12 1553.0 H (200.0-944.0) pg/mL Procalcitonin 9.74 H (0.02-0.09) ng/mL Fluid Appearance Blood Tinged A (Clear) Crossmatch 05/26/24 05/26/24 05/27/24 Range/Units 13:05 13:06 05:00 WBC (3.8-10.6) k/uL RBC (3.80-5.40) m/uL Hgb (11.4-16.0) gm/dL Hct (34.0-46.0) % MCV (80.0-100.0) fL MCHC (31.0-37.0) g/dL RDW (11.5-15.5) % Plt Count (150-450) k/uL Neutrophils # (Manual) (1.3-7.7) k/uL Lymphocytes # (Manual) (1.0-4.8) k/uL Myelocytes # (Manual) (0) k/uL ESR 51 H (0-30) mm/Hr ABG pO2 (83-108) mmHg ABG HCO3 (21-25) mmol/L ABG Total CO2 (19-24) mmol/L ABG O2 Saturation (94-97) % Chloride 108 H (98-107) mmol/L Carbon Dioxide 21 L (22-30) mmol/L BUN 21 H (7-17) mg/dL Creatinine 0.38 L (0.52-1.04) mg/dL Glucose 203 H (74-99) mg/dL POC Glucose (mg/dL) 218 H (70-110) mg/dL Calcium 8.3 L (8.4-10.2) mg/dL Iron (50-170) UG/DL TIBC (228-460) UG/DL Transferrin (204.0-354.0) mg/dL Ferritin (10.0-291.0) ng/mL Vitamin B12 (200.0-944.0) pg/mL Procalcitonin (0.02-0.09) ng/mL Fluid Appearance (Clear) Crossmatch 05/27/24 05/27/24 05/27/24 Range/Units 05:00 05:53 09:13 WBC 73.5 H* (3.8-10.6) k/uL RBC 2.12 L (3.80-5.40) m/uL Hgb 6.6 L* D (11.4-16.0) gm/dL Hct 22.2 L (34.0-46.0) % MCV 104.5 H (80.0-100.0) fL MCHC 29.9 L (31.0-37.0) g/dL RDW 16.1 H (11.5-15.5) % Plt Count 452 H (150-450) k/uL Neutrophils # (Manual) 72.70 H (1.3-7.7) k/uL Lymphocytes # (Manual) 0.74 L (1.0-4.8) k/uL Myelocytes # (Manual) 0.74 H (0) k/uL ESR (0-30) mm/Hr ABG pO2 112 H (83-108) mmHg ABG HCO3 26 H (21-25) mmol/L ABG Total CO2 27 H (19-24) mmol/L ABG O2 Saturation 98.9 H (94-97) % Chloride (98-107) mmol/L Carbon Dioxide (22-30) mmol/L BUN (7-17) mg/dL Creatinine (0.52-1.04) mg/dL Glucose (74-99) mg/dL POC Glucose (mg/dL) (70-110) mg/dL Calcium (8.4-10.2) mg/dL Iron (50-170) UG/DL TIBC (228-460) UG/DL Transferrin (204.0-354.0) mg/dL Ferritin (10.0-291.0) ng/mL Vitamin B12 (200.0-944.0) pg/mL Procalcitonin (0.02-0.09) ng/mL Fluid Appearance (Clear) Crossmatch See Detail Microbiology - Last 24 Hours (Table) 05/26/24 10:00 Gram Stain - Preliminary Bronchoalviolar Lavage - Left 05/25/24 15:45 Blood Culture - Preliminary Blood 05/25/24 16:00 Blood Culture - Preliminary Blood Assessment and Plan Assessment: Acute respiratory failure, requiring intubation, and mechanical ventilation, May 26, 2024. Left lung opacification, likely on the basis of fluid/pneumonia/mass. S/P bronchoscopy, with BAL, brushings, biopsies, left lower lobe. S/P left-sided thoracentesis, with 1.5 L of fluid removed, May 27, 2024. History of ongoing tobacco use with nicotine addiction. History of hypertension. History of hyperlipidemia. History of fibromyalgia. History of migraine cephalgia. History of ulcerative colitis. History of anxiety/depression. Plan: Plan dated May 26, 2024. The patient was transferred to the intensive care unit, for further monitoring and management. The patient was intubated by the [facility], in the ICU. A right radial arterial line was placed, as well as a left subclavian triple-lumen catheter. In addition, we did bronchoscopy, airway examination, therapeutic lavage, BAL left lower lobe, brushings left lower lobe, and biopsies in the area of the left lower lobe. The patient tolerated all of this well. Labs, x-rays, medications are reviewed. The patient will also have an ultrasound of the left chest. If there is free-flowing fluid, we may wish to do a thoracentesis. The airways had lots of purulent looking secretions. There were sent for analysis. Prognosis is guarded. Plan dated May 27, 2024. The patient had a left-sided thoracentesis done at the bedside. 1.5 L of milky slightly green fluid was removed from the left pleural space. This could be a chylothorax. The fluid was sent for usual analysis, including cytology, microbiology, and chemistry. We also added a cholesterol level and chylomicrons level. The patient is currently on multiple medications including propofol, norepinephrine, and fentanyl. The patient is also getting lactated Ringer's at 100 cc an hour. We will start tube feedings today. The patient's procalcitonin level was 9.74. The patient was on Vanco, and we added cefepime. Finally we drop the FiO2 from 60%, down to 50%. We will continue to follow make recommendations along the way. Patient's overall prognosis remains very guarded. Still very concerned about the possibility of malignancy. Time with Patient: Greater than 30
[2024-05-27] MEDS ORDERED: Magnesium Replacement Protocol 1 EACH MISC MISCELLANE PRN (11:57)
[2024-05-27 12:06] LABS: Glucose,Whole Blood 222 mg/dL (70-110)
[2024-05-27] MEDS: MAGNESIUM SULFATE-D5W PMX 1 GM in DEXTROSE/WATER 1 100ML.BAG IVPB ONE (14:28)
[2024-05-27] MEDS ORDERED: DEXTROSE 50% SYRINGE 50 ML IVP PRN ×2 (18:04)
[2024-05-27 18:16] LABS: Glucose,Whole Blood 213 mg/dL (70-110)
[2024-05-27] MEDS: INSULIN ASPART (NovoLOG) 100 UNIT/ML VIAL SQ SCH (18:21)
--- NOTE | 2024-05-27 22:44 | P.PN ---
Subjective This is a pleasant 63 years old female with past medical history of multiple medical problems including hypertension, hyperlipidemia, degenerative disc disease, fibromyalgia, multiple sclerosis, anxiety and depression. Patient presents because of worsening dyspnea for 2 days. Patient has a known case of bronchitis which is chronic and there is a 4 reported at home about 3 days prior to arrival to the hospital. Patient currently is in severe respiratory distress and cannot provide information, facility engineer A-team was called for worsening dyspnea. Patient oxygen requirement went up to 6 L/min and was getting worse so one-time dose of IV Lasix provided and she was placed on BiPAP, she could tolerated only for 10 minutes and then she started becoming tachycardic and tachypneic with a breathing rate between 40s to 50s. She was hypoxic diaphoretic, sweating and pale. Another A-team was called and patient was moved to the ICU where she got emergent intubated. Staff tried to call the son and left a message I called the son myself Mr. Jefferson at [phone] and left a message to call back. Information was obtained from staff and medical record. Patient was afebrile, on admission She has significant worsening leukocytosis up to 40,000, hemoglobin dropped to 8.5. Platelet count were up to 561 . Liver enzymes mildly elevated. D-dimer was elevated 5.5 and CTA of the chest was obtained showing significant abnormalities : No pulmonary embolism, large left pleural effusion, loculated with complete left lung collapse with possible splenic involvement and enlarged mediastinal lymphadenopathy findings suspicious for malignancy 05/27/2024 Patient got extubated yesterday Patient today was still drowsy lethargic somewhat confused and very weak. She has large pleural effusion and she underwent thoracocentesis today with 1.5 of pleural fluid aspirated and sent for studies. Her WBC jumped up to 73 K and hemoglobin down to 6.6. As such her IV vancomycin continued, IV cefepime added and patient received 1 unit of blood transfusion today Patient also kept on IV Solu-Medrol and Ringer lactate at 100 mL/h ProCalcitonin is elevated 6.7%. Review of systems CONSTITUTIONAL: No fever, no malaise, no fatigue. HEENT: No recent visual problems or hearing problems. Denied any sore throat. HEMATOLOGICAL: Denies any bleeding or petechiae. GENITOURINARY: Denies any burning micturition, frequency, or urgency. MUSCULOSKELETAL/RHEUMATOLOGICAL: Denies any joint pain, swelling, or any muscle pain. ENDOCRINE: Denies any polyuria or polydipsia. Active Medications Generic Name Dose Route Start Last Admin Trade Name Freq PRN Reason Stop Dose Admin Acetaminophen 650 mg 05/25/24 19:25 Acetaminophen Tab 325 Mg Tab PO Q6HR PRN Mild Pain or Fever > 100.5 Albuterol/Ipratropium 3 ml 05/25/24 20:00 05/27/24 20:23 Ipratropium-Albuterol 3 Ml Neb INHALATION 3 ml RT-Q4H [facility] Administration Budesonide 1 mg 05/26/24 20:00 05/27/24 20:23 Budesonide 1 Mg/2 Ml Nebu INHALATION 1 mg RT-BID [facility] Administration Chlorhexidine Gluconate 15 ml 05/26/24 09:00 05/27/24 21:08 Chlorhexidine Gluconate 15 Ml Cup MUCOUS MEM 15 ml BID [facility] Administration Dextrose/Water 25 ml 05/27/24 18:04 Dextrose 50% Syringe 50 Ml IVP PER PROTOCOL PRN Hypoglycemia Protocol Dextrose/Water 50 ml 05/27/24 18:04 Dextrose 50% Syringe 50 Ml IVP PER PROTOCOL PRN Hypoglycemia Protocol Formoterol Fumarate 20 mcg 05/26/24 20:00 05/27/24 20:23 Formoterol Fumarate 20 Mcg/2 Ml Nebu INHALATION 20 mcg RT-BID [facility] Administration Hydromorphone HCl 0.5 mg 05/25/24 19:25 Hydromorphone 0.5 Mg/0.5 Ml Syringe IVP Q3HR PRN Moderate Pain (Scale 4 to 6) Hydromorphone HCl 1 mg 05/26/24 09:40 05/26/24 21:49 Hydromorphone 1 Mg/Ml 1 Ml Syringe IVP 1 mg Q1HR PRN Administration Pain Diltiazem HCl 125 mg/ Sodium 125 mls @ 10 mls/hr 05/26/24 00:30 05/27/24 14:19 Chloride IV Not Given .[id number] [facility] 10 MG/HR Propofol 1,000 mg/ IV Solution 100 mls @ 4.899 mls/hr 05/26/24 08:00 05/27/24 21:56 IV 50 mcg/kg/min .[id number] [facility] 16.329 mls/hr Administration Protocol 15 MCG/KG/MIN Norepinephrine Bitartrate 4 mg 254 mls @ 6.221 mls/hr 05/26/24 11:00 05/27/24 14:20 / Sodium Chloride IV 0.02 mcg/kg/min .Q24H [facility] 4.148 mls/hr Titration Protocol 0.03 MCG/KG/MIN Lactated Ringer's 1,000 mls @ 100 mls/hr 05/26/24 11:00 05/27/24 16:42 Lactated Ringers IV 100 mls/hr .Q10H [facility] Administration Vancomycin HCl 1,000 mg/ 250 mls @ 125 mls/hr 05/27/24 07:00 05/27/24 21:08 Sodium Chloride IVPB 125 mls/hr Q12H [facility] Administration Fentanyl Citrate 1,000 mcg/ 100 mls @ 2.722 mls/hr 05/26/24 23:00 05/27/24 21:54 Sodium Chloride IV 2 mcg/kg/hr .Q24H [facility] 10.886 mls/hr Administration Protocol 0.5 MCG/KG/HR Cefepime HCl 2 gm/ Sodium 100 mls @ 25 mls/hr 05/27/24 10:00 05/27/24 18:21 Chloride IVPB 25 mls/hr Q8H [facility] Administration Protocol Insulin Aspart 0 unit 05/27/24 18:30 05/27/24 18:21 Insulin Aspart (Novolog) 100 Unit/Ml Vial SQ 2 unit Q6H [facility] Administration Protocol Methylprednisolone Sodium Succinate 60 mg 05/26/24 00:00 05/27/24 16:38 Methylprednisolone Sod Succi 125 Mg/2 Ml Vial IV 60 mg Q8HR [facility] Administration Miscellaneous Information 0 each 05/28/24 06:00 Vancomycin Trough Due 1 Each Misc MISCELLANE 05/28/24 06:01 DIRECTED ONE Miscellaneous Information 1 each 05/27/24 11:57 Magnesium Replacement Protocol 1 Each Misc MISCELLANE DAILY PRN Per Protocol Protocol Naloxone HCl 0.2 mg 05/25/24 19:25 Naloxone 0.4 Mg/Ml 1 Ml Vial IV Q2M PRN Opioid Reversal Ondansetron HCl 4 mg 05/25/24 19:25 Ondansetron 4 Mg/2 Ml Vial IVP Q8HR PRN Nausea And Vomiting Objective - Vital Signs Vital signs: Vital Signs Temp 98.0 F 05/27/24 04:00 Pulse 88 05/27/24 08:33 Resp 24 05/27/24 07:30 BP 115/73 05/27/24 07:30 Pulse Ox 98 05/27/24 07:30 FiO2 60 05/27/24 08:16 Intake & Output 05/26/24 05/27/24 05/27/24 18:59 06:59 18:59 Intake Total 2064.592 758.599 64.7 Output Total 715 630 135 Balance 1349.592 128.599 -70.3 Weight 54.431 kg 56 kg Intake: IV 1000 33 9 0.9 NACL bolus 1000 pressure bag 33 9 Intake, IV Titration 1064.592 725.599 55.7 Amount Diltiazem 125 mg In 96.667 Sodium Chloride 0.9% 100 ml @ 10 MG/HR 10 mls/hr IV .[id number] [facility] Rx#: [id number] Lactated Ringers 1,000 ml 800 500 @ 100 mls/hr IV .Q10H [facility] Rx#:[id number] Norepinephrine 4 mg In 19.182 Sodium Chloride 0.9% 250 ml @ 0.03 MCG/KG/MIN 6. 221 mls/hr IV .Q24H [facility] Rx#:[id number] Sodium Chloride 0.9% 80 23.135 55.7 ml @ 0.5 MCG/KG/HR 2.722 mls/hr IV .Q24H [facility] with fentaNYL (PF) 1,000 mcg Rx#:[id number] propofoL 1,000 mg In 148.743 202.464 Empty Bag 1 bag @ 15 MCG/ KG/MIN 4.899 mls/hr IV . [id number] [facility] Rx#:[id number] Output: Urine 715 630 135 ABP, PAP, CO, CI - Last Documented Arterial Blood Pressure 124/65 - Exam -GENERAL: The patient is awake but very weak and lethargic HEENT: Pupils are round and equally reacting to light. EOMI. No scleral icterus. No conjunctival pallor. Normocephalic, atraumatic. No pharyngeal erythema. No thyromegaly. CARDIOVASCULAR: S1 and S2 present. No murmurs, rubs, or gallops. PULMONARY: Chest is clear to auscultation, no wheezing , no crackles. ABDOMEN: Soft, nontender, nondistended, normoactive bowel sounds. No palpable organomegaly. MUSCULOSKELETAL: No joint swelling or deformity. EXTREMITIES: No cyanosis, clubbing, or pedal edema. NEUROLOGICAL: Gross neurological examination did not reveal any focal deficits. SKIN: No rashes. no petechiae. - Labs CBC & Chem 7: 05/27/24 05:00 05/27/24 05:00 Labs: Abnormal Lab Results - Last 24 Hours (Table) 05/26/24 05/26/24 05/26/24 Range/Units 06:11 10:00 10:35 WBC (3.8-10.6) k/uL RBC (3.80-5.40) m/uL Hgb (11.4-16.0) gm/dL Hct (34.0-46.0) % MCV (80.0-100.0) fL MCHC (31.0-37.0) g/dL RDW (11.5-15.5) % Plt Count (150-450) k/uL Neutrophils # (Manual) (1.3-7.7) k/uL Lymphocytes # (Manual) (1.0-4.8) k/uL Myelocytes # (Manual) (0) k/uL ESR (0-30) mm/Hr ABG pH 7.24 L (7.35-7.45) ABG pCO2 61 H (35-45) mmHg ABG pO2 146 H (83-108) mmHg ABG HCO3 26 H (21-25) mmol/L ABG Total CO2 28 H (19-24) mmol/L ABG O2 Saturation 99.2 H (94-97) % Chloride (98-107) mmol/L Carbon Dioxide (22-30) mmol/L BUN (7-17) mg/dL Creatinine (0.52-1.04) mg/dL Glucose (74-99) mg/dL POC Glucose (mg/dL) (70-110) mg/dL Calcium (8.4-10.2) mg/dL Iron (50-170) UG/DL TIBC (228-460) UG/DL Transferrin (204.0-354.0) mg/dL Ferritin (10.0-291.0) ng/mL Vitamin B12 (200.0-944.0) pg/mL Procalcitonin 9.74 H (0.02-0.09) ng/mL Fluid Appearance Blood Tinged A (Clear) 05/26/24 05/26/24 05/26/24 Range/Units 13:05 13:05 13:06 WBC (3.8-10.6) k/uL RBC (3.80-5.40) m/uL Hgb (11.4-16.0) gm/dL Hct (34.0-46.0) % MCV (80.0-100.0) fL MCHC (31.0-37.0) g/dL RDW (11.5-15.5) % Plt Count (150-450) k/uL Neutrophils # (Manual) (1.3-7.7) k/uL Lymphocytes # (Manual) (1.0-4.8) k/uL Myelocytes # (Manual) (0) k/uL ESR 51 H (0-30) mm/Hr ABG pH (7.35-7.45) ABG pCO2 (35-45) mmHg ABG pO2 (83-108) mmHg ABG HCO3 (21-25) mmol/L ABG Total CO2 (19-24) mmol/L ABG O2 Saturation (94-97) % Chloride (98-107) mmol/L Carbon Dioxide (22-30) mmol/L BUN (7-17) mg/dL Creatinine (0.52-1.04) mg/dL Glucose (74-99) mg/dL POC Glucose (mg/dL) 218 H (70-110) mg/dL Calcium (8.4-10.2) mg/dL Iron 26 L (50-170) UG/DL TIBC 151 L (228-460) UG/DL Transferrin 108.0 L (204.0-354.0) mg/dL Ferritin 1549.0 H (10.0-291.0) ng/mL Vitamin B12 1553.0 H (200.0-944.0) pg/mL Procalcitonin (0.02-0.09) ng/mL Fluid Appearance (Clear) 05/27/24 05/27/24 05/27/24 Range/Units 05:00 05:00 05:53 WBC 73.5 H* (3.8-10.6) k/uL RBC 2.12 L (3.80-5.40) m/uL Hgb 6.6 L* D (11.4-16.0) gm/dL Hct 22.2 L (34.0-46.0) % MCV 104.5 H (80.0-100.0) fL MCHC 29.9 L (31.0-37.0) g/dL RDW 16.1 H (11.5-15.5) % Plt Count 452 H (150-450) k/uL Neutrophils # (Manual) 72.70 H (1.3-7.7) k/uL Lymphocytes # (Manual) 0.74 L (1.0-4.8) k/uL Myelocytes # (Manual) 0.74 H (0) k/uL ESR (0-30) mm/Hr ABG pH (7.35-7.45) ABG pCO2 (35-45) mmHg ABG pO2 112 H (83-108) mmHg ABG HCO3 26 H (21-25) mmol/L ABG Total CO2 27 H (19-24) mmol/L ABG O2 Saturation 98.9 H (94-97) % Chloride 108 H (98-107) mmol/L Carbon Dioxide 21 L (22-30) mmol/L BUN 21 H (7-17) mg/dL Creatinine 0.38 L (0.52-1.04) mg/dL Glucose 203 H (74-99) mg/dL POC Glucose (mg/dL) (70-110) mg/dL Calcium 8.3 L (8.4-10.2) mg/dL Iron (50-170) UG/DL TIBC (228-460) UG/DL Transferrin (204.0-354.0) mg/dL Ferritin (10.0-291.0) ng/mL Vitamin B12 (200.0-944.0) pg/mL Procalcitonin (0.02-0.09) ng/mL Fluid Appearance (Clear) Microbiology - Last 24 Hours (Table) 05/25/24 15:45 Blood Culture - Preliminary Blood 05/25/24 16:00 Blood Culture - Preliminary Blood Assessment and Plan Assessment: Large loculated left pleural effusion with associated complete collapse of the left lung with mediastinal lymphadenopathy suspicious for malignancy is high. Also there is involvement of the spleen through rate controlled but no a nticoagulation diaphragm. Status post thoracocentesis on 05/27 with 1.5 L removed Severe acute hypoxic respiratory failure, present on admission. Requiring intubation and mechanical ventilation. Acute COPD exacerbation Severe leukocytosis with findings above pneumonia is highly suspected. worsening anemia requiring 1 unit of blood transfusion on 05/27 New onset A-fib and RVR, currently rate controlled but no anticoagulation for severe anemia Hypertension Hyperlipidemia Degenerative disc disease Fibromyalgia Multiple sclerosis Anxiety and depression Plan: Continue patient monitoring in the ICU Patient s/p extubation S/p thoracocentesis and follow-up pleural fluid studies Remains on IV Solu-Medrol Continue with broad-spectrum antibiotics with vancomycin and cefepime Follow-up blood culture Cardiology on the case for A-fib RVR but no anticoagulation for anemia Pulmonary, cardiology and hematology/oncology consult Labs and medication were reviewed.. Continue same treatment. Continue with symptomatic treatment. Resume home medication. Monitor labs and vitals. DVT and GI prophylaxis. Further recommendations as per clinical course of the patient DVT prophylaxis:no Subcutaneous heparin GI Prophylaxis: Pepcid Prognosis is guarded
[2024-05-28 01:28] LABS: Glucose,Whole Blood 237 mg/dL (70-110)
[2024-05-28 05:36] LABS: Anisocytosis Slight; HCT 25.6 % (34.0-46.0); HGB 7.5 gm/dL (11.4-16.0); Hypochromasia Marked; MCH 29.8 pg (25.0-35.0); MCHC 29.3 g/dL (31.0-37.0); MCV 101.6 fL (80.0-100.0); Macrocytosis Moderate; Mean Platelet Volume 9.2; Platelet Count 382 k/uL (150-450); RBC 2.52 m/uL (3.80-5.40); RDW 17.1 % (11.5-15.5); WBC 48.1 k/uL (3.8-10.6)
[2024-05-28 06:23] LABS: African American GFR (CKD) >90 (>60 ml/min/1.73 sqM); Anion Gap 3 mmol/L; Blood Urea Nitrogen 24 mg/dL (7-17); Calcium 8.2 mg/dL (8.4-10.2); Carbon Dioxide 26 mmol/L (22-30); Chloride 111 mmol/L (98-107); Glucose 215 mg/dL (74-99); LDH 234 U/L (120-246); Magnesium 2.3 mg/dL (1.6-2.3); Non-African American GFR(CKD) >90 (>60 ml/min/1.73 sqM); Potassium 4.4 mmol/L (3.5-5.1); Sodium 140 mmol/L (137-145); Total Protein 4.6 g/dL (6.3-8.2)
[2024-05-28 06:41] LABS: ABG Base Excess 2.8 mmol/L; ABG HCO3 28 mmol/L (21-25); ABG Oxygen Saturation 99.2 % (94-97); ABG PCO2 45 mmHg (35-45); ABG PO2 119 mmHg (83-108); ABG TCO2 29 mmol/L (19-24); Allen Test Performed? Yes
[2024-05-28 06:53] LABS: Anisocytosis (M) Present; Band Neutrophils % 10 %; Eosinophils # (M) 0.48 k/uL (0-0.7); Monocytes # (M) 0.48 k/uL (0-1.0); Myelocytes # (M) 0.48 k/uL (0); Myelocytes % 1 %; Neutrophils % (M) 88 %; Nucleated Red Blood Cells 0 /100 WBC (0-0); Polychromasia Present; Total Cells Counted 200
[2024-05-28] MEDS: VANCOMYCIN TROUGH DUE 1 EACH MISC MISCELLANE ONE (08:10)
--- NOTE | 2024-05-28 09:08 | P.PN ---
Subjective Progress Note Date: 05/28/24 Principal diagnosis: Respiratory failure. Pulmonary consult dated May 26, 2024. 63-year-old female seen this morning in consultation. The patient was seen initially in the emergency department, on May 25. She apparently came in with complaints of shortness of breath, and low saturations. The patient has been treated recently for bronchitis with steroids and antibiotics. This morning, a rapid response was called on this patient, and, the charge nurse called me, to tell me that the patient would benefit from Lasix, and BiPAP. That was done initially, but subsequent to that, another rapid response was called on this patient, and the patient needed to be transferred to the intensive care unit, for intubation and mechanical ventilation. Currently, she is on volume assist- control, rate 20, tidal volume 350, FiO2 100%, PEEP of 5. She is on a Cardizem drip at 10 mg an hour for atrial fibrillation, propofol at 60 mcg/kg/min, and she is receiving some fluid, i.e. saline, at 1 L, as a fluid bolus. Afterwards, she will be switched to lactated Ringer's at 100 cc an hour. She had a an arterial line placed, and a central line placed. We did a right radial arterial line, and a left subclavian triple-lumen catheter. She was intubated by the ATM MANAGER. Current labs include a white count of 54.7, hemoglobin 8.7, hematocrit 29.7, and a platelet count of 605,000. Initial blood gases showed a pO2 of 146, pCO2 of 61, and pH is 7.24. The rate was increased from 28 to 24 breaths/min. In addition, the FiO2 was dropped down to 70%. Sodium 138, potassium 4.9, chlorides 102, CO2 28, BUN 18, creatinine 0.45. Glucose is 288. Calcium is 8.9. Lactic acid 1.3. The left chest reveals a pleural effusion, with possible loculations. An ultrasound was ordered. In addition, the patient had bronchoscopy, with airway examination, therapeutic lavage, BAL, brushings left lower lobe, and endobronchial and transbronchial biopsies left lower lobe. Progress note dated May 27, 2024. 63-year-old female seen in consultation yesterday. Please see the note above. The patient developed lopez respiratory failure, and was intubated, yesterday, May 26. She remains on mechanical ventilator. She is on volume assist- control, rate 24, tidal volume 350, FiO2 60%, to be reduced down to 50%, PEEP of 5. Blood gases show pO2 of 112, pCO2 44, pH is 7.37. The patient continues on propofol at 60 mcg/kg/min, norepinephrine at 7 mcg/min, fentanyl at 2 mcg/kg/h, LR at 100 cc an hour. The patient is on vancomycin, and we add cefepime. The patient had a left-sided thoracentesis today. 1.5 L of milky slightly green fluid was removed from the left pleural space. The patient's procalcitonin level is elevated 9.74. Current labs include a white count of 73.5, hemoglobin 6.6, hematocrit 22.2, platelet count 452,000. The patient will get 1 unit of PRBCs. In addition, sodium 139, potassium 4.8, chlorides 108, CO2 21, anion gap 10, BUN 21, creatinine 0.38. Calcium is 8.3. Magnesium is 1.9. Cultures are thus far negative. The postthoracentesis chest x-ray shows an improved left- sided pleural fluid collection, and a small to moderate size left-sided hydropneumothorax. Progress note dated May 28, 2024. 63-year-old female seen in consultation 2 days ago. The patient remains on mechanical ventilator. She is seen today in room 262. She is on volume assist-control, rate 24, tidal volume 350, FiO2 50%, PEEP of 5. Blood gases show pO2 119, pCO2 45, pH is 7.40. The FiO2 will be reduced at 40%. She is sedated with propofol at 65 mcg/kg/min, norepinephrine at 1.2 mcg/min, and fentanyl at 2 mcg/kg/h. She is getting lactated Ringer's at 100 cc an hour, and vital high-protein at 33 cc an hour. She continues on cefepime, and vancomycin. Current laboratory data includes a white count 48.1, hemoglobin 7.5, hematocrit 25.6, and platelet count 382,000. Sodium 140, potassium 4.4, chlorides 111, CO2 26, BUN 24, creatinine 0.42. Glucose is 215. Calcium 8.2. Cultures thus far are negative. That includes bronchoscopy results. Chest x-ray shows a relati vely clear right lung. There is some haziness, on the left side, with a left- sided pleural effusion. She did undergo thoracentesis yesterday. Objective - Vital Signs Vital signs: Vital Signs Temp 98.3 F 05/28/24 08:00 Pulse 88 05/28/24 08:25 Resp 24 05/28/24 08:15 BP 118/69 05/28/24 08:15 Pulse Ox 96 05/28/24 08:15 FiO2 40 05/28/24 08:08 Intake & Output 05/27/24 05/28/24 05/28/24 18:59 06:59 18:59 Intake Total 8327.917 1900.858 272 Output Total 495 625 105 Balance 6132.205 2413.858 167 Weight 58.5 kg 59.2 kg Intake: IV 539 1033 206 Cefepime 2 gm In Sodium 100 Chloride 0.9% 100 ml @ 25 mls/hr IVPB Q8H [facility] Rx#: [id number] Lactated Ringers 1,000 ml 400 1000 200 @ 100 mls/hr IV .Q10H [facility] Rx#:[id number] pressure bag 39 33 6 Intake, IV Titration 595.771 298.858 Amount Norepinephrine 4 mg In 295.650 51.02 Sodium Chloride 0.9% 250 ml @ 0.03 MCG/KG/MIN 6. 221 mls/hr IV .Q24H [facility] Rx#:[id number] Sodium Chloride 0.9% 80 135.349 81.282 ml @ 0.5 MCG/KG/HR 2.722 mls/hr IV .Q24H [facility] with fentaNYL (PF) 1,000 mcg Rx#:[id number] propofoL 1,000 mg In 164.772 166.556 Empty Bag 1 bag @ 15 MCG/ KG/MIN 4.899 mls/hr IV . [id number] [facility] Rx#:[id number] Tube Feeding 100 324 66 Blood Product 280 Rc Pheresis 2 As3 Unit 280 [id number] Other 60 Output: Urine 495 625 105 ABP, PAP, CO, CI - Last Documented Arterial Blood Pressure 101/80 - Exam No acute distress, sedated, and intubated orally, with an oral NG tube. HEENT examination is grossly unremarkable. Neck supple. Full range of motion. No adenopathy thyromegaly or neck vein di stention. Cardiovascular examination reveals regular rhythm rate. S1-S2 normal. No S3 or S4. No discernible murmur noted. Heart sounds are distant. Heart rate 88 bpm. Lungs reveal bilateral coarse rhonchi. No expiratory wheezes. No crackles. Breath sounds equal. Saturations are 96 %, on 40% FiO2. Abdomen soft without bowel sounds. No masses or tenderness. Extremities are intact. No cyanosis clubbing or edema. Skin is without rash or lesion. Neurologic examination cannot be fully evaluated at this time. - Labs CBC & Chem 7: 05/28/24 05:20 05/28/24 05:20 Labs: Abnormal Lab Results - Last 24 Hours (Table) 05/27/24 05/27/24 05/27/24 Range/Units 05:00 09:13 12:04 WBC (3.8-10.6) k/uL RBC (3.80-5.40) m/uL Hgb (11.4-16.0) gm/dL Hct (34.0-46.0) % MCV (80.0-100.0) fL MCHC (31.0-37.0) g/dL RDW (11.5-15.5) % Neutrophils # (Manual) (1.3-7.7) k/uL Myelocytes # (Manual) (0) k/uL ABG pO2 (83-108) mmHg ABG HCO3 (21-25) mmol/L ABG Total CO2 (19-24) mmol/L ABG O2 Saturation (94-97) % Chloride (98-107) mmol/L BUN (7-17) mg/dL Creatinine (0.52-1.04) mg/dL Glucose (74-99) mg/dL POC Glucose (mg/dL) 222 H (70-110) mg/dL Calcium (8.4-10.2) mg/dL Total Protein (6.3-8.2) g/dL Procalcitonin 6.77 H (0.02-0.09) ng/mL Crossmatch See Detail 05/27/24 05/28/24 05/28/24 Range/Units 18:14 01:23 05:20 WBC 48.1 H (3.8-10.6) k/uL RBC 2.52 L (3.80-5.40) m/uL Hgb 7.5 L (11.4-16.0) gm/dL Hct 25.6 L (34.0-46.0) % MCV 101.6 H (80.0-100.0) fL MCHC 29.3 L (31.0-37.0) g/dL RDW 17.1 H (11.5-15.5) % Neutrophils # (Manual) 47.10 H (1.3-7.7) k/uL Myelocytes # (Manual) 0.48 H (0) k/uL ABG pO2 (83-108) mmHg ABG HCO3 (21-25) mmol/L ABG Total CO2 (19-24) mmol/L ABG O2 Saturation (94-97) % Chloride (98-107) mmol/L BUN (7-17) mg/dL Creatinine (0.52-1.04) mg/dL Glucose (74-99) mg/dL POC Glucose (mg/dL) 213 H 237 H (70-110) mg/dL Calcium (8.4-10.2) mg/dL Total Protein (6.3-8.2) g/dL Procalcitonin (0.02-0.09) ng/mL Crossmatch 05/28/24 05/28/24 Range/Units 05:20 06:36 WBC (3.8-10.6) k/uL RBC (3.80-5.40) m/uL Hgb (11.4-16.0) gm/dL Hct (34.0-46.0) % MCV (80.0-100.0) fL MCHC (31.0-37.0) g/dL RDW (11.5-15.5) % Neutrophils # (Manual) (1.3-7.7) k/uL Myelocytes # (Manual) (0) k/uL ABG pO2 119 H (83-108) mmHg ABG HCO3 28 H (21-25) mmol/L ABG Total CO2 29 H (19-24) mmol/L ABG O2 Saturation 99.2 H (94-97) % Chloride 111 H (98-107) mmol/L BUN 24 H (7-17) mg/dL Creatinine 0.42 L (0.52-1.04) mg/dL Glucose 215 H (74-99) mg/dL POC Glucose (mg/dL) (70-110) mg/dL Calcium 8.2 L (8.4-10.2) mg/dL Total Protein 4.6 L (6.3-8.2) g/dL Procalcitonin (0.02-0.09) ng/mL Crossmatch Microbiology - Last 24 Hours (Table) 05/25/24 15:45 Blood Culture - Preliminary Blood 05/25/24 16:00 Blood Culture - Preliminary Blood 05/26/24 10:00 Acid Fast Bacilli Smear - Preliminary Bronchoalviolar Lavage - Left 05/26/24 10:00 Gram Stain - Preliminary Bronchoalviolar Lavage - Left Bronchial Washings Culture - Preliminary Assessment and Plan Assessment: Acute respiratory failure, requiring intubation, and mechanical ventilation, May 26, 2024. Left lung opacification, likely on the basis of fluid/pneumonia/mass. S/P bronchoscopy, with BAL, brushings, biopsies, left lower lobe. S/P left-sided thoracentesis, with 1.5 L of fluid removed, May 27, 2024. History of ongoing tobacco use with nicotine addiction. History of hypertension. History of hyperlipidemia. History of fibromyalgia. History of migraine cephalgia. History of ulcerative colitis. History of anxiety/depression. Plan: Plan dated May 26, 2024. The patient was transferred to the intensive care unit, for further monitoring and management. The patient was intubated by the ATM MANAGER, in the ICU. A right radial arterial line was placed, as well as a left subclavian triple-lumen catheter. In addition, we did bronchoscopy, airway examination, therapeutic la vage, BAL left lower lobe, brushings left lower lobe, and biopsies in the area of the left lower lobe. The patient tolerated all of this well. Labs, x-rays, medications are reviewed. The patient will also have an ultrasound of the left chest. If there is free-flowing fluid, we may wish to do a thoracentesis. The airways had lots of purulent looking secretions. There were sent for analysis. Prognosis is guarded. Plan dated May 27, 2024. The patient had a left-sided thoracentesis done at the bedside. 1.5 L of milky slightly green fluid was removed from the left pleural space. This could be a chylothorax. The fluid was sent for usual analysis, including cytology, microbiology, and chemistry. We also added a cholesterol level and chylomicrons level. The patient is currently on multiple medications including propofol, norepinephrine, and fentanyl. The patient is also getting lactated Ringer's at 100 cc an hour. We will start tube feedings today. The patient's procalcitonin level was 9.74. The patient was on Vanco, and we added cefepime. Finally we drop the FiO2 from 60%, down to 50%. We will continue to follow make recommendations along the way. Patient's overall prognosis remains very guarded. Still very concerned about the possibility of malignancy. Plan dated May 28, 2024. The patient is seen today in room 262. She remains on the mechanical ventilator. Blood gases are reasonable. FiO2 was dropped down to 40%. She continues on propofol at 65 mcg/kg/min, norepinephrine at 1.2 mcg/min, fentanyl 2 mcg/kg/h. She also continues on lactated Ringer's at 100 cc an hour, and vital high-protein at 33 cc an hour. She is on cefepime and vancomycin. Cultu re data is thus far negative. The patient underwent thoracentesis yesterday. Those results are currently pending as well. We will continue to follow make recommendations. Prognosis is certainly guarded. Procalcitonin levels were elevated. Time with Patient: Greater than 30
[2024-05-28 09:17] LABS: Amylase, Fluid Source Pleural fluid; Amylase,Body Fluid 11 U/L; Cholesterol,BF Source Pleural fluid; Cholesterol,Body Fluid 37 mg/dL; Glucose, BF Source Pleural fluid; Glucose, Body Fluid 8 mg/dL; T. Protein, Body Fluid Source Pleural fluid; Total Protein, Body Fluid >3600 mg/dL
--- NOTE | 2024-05-28 09:45 | XR ---
EXAM: XR chest 1V portable CLINICAL INDICATION:Female, 63 years old with history of Tube placement; [facility] COMPARISON: 05/27/2024. TECHNIQUE: Chest single view. FINDINGS: Stable endotracheal and orogastric tubes. Stable left subclavian central venous line. Unchanged appearance of persistent moderate-sized left-sided pleural effusion with associated atelect asis/airspace disease. Pneumothorax no longer appreciated on this view. Right lung is clear. Partial obscuration of the cardiomediastinal silhouette. Mild cardiomegaly is seen. Osseous structures are in tact. IMPRESSION: Unchanged appearance of persistent moderate-sized left-sided pleural effusion with associated atelect asis/airspace disease. Pneumothorax no longer appreciated on this view.
--- NOTE | 2024-05-28 10:32 | P.PN ---
Subjective Progress Note Date: 05/28/24 HISTORY OF PRESENTING ILLNESS This is a 63-year-old with past medical history significant for hypertension, hyperlipidemia, ulcerative colitis, fibromyalgia, multiple sclerosis, anxiety, tobacco abuse, syncopal episodes in the past. She does not follow with a retail consultant. She is currently intubated and sedated and history is supplied by chart. Patient has been having worsening shortness breath over last few days. She has history of chronic bronchitis and chronic respiratory failure. Initially was seen in the ER however on floor she had respiratory distress and 18 was called and initially tried IV Lasix however could not tolerate and became tachycardic into And eventually intubated. D-dimer was elevated at 5.5 and therefore CTA was performed which showed no PE however large left pleural ef fusion and loculated left lung collapse and enlarged mediastinal lymphadenectomy concerning for malignancy and therefore oncology was consulted. Cardiology was consult that secondary to A. fib with RVR. Initial EKG showing sinus tachycardia with heart rate 118 bpm however repeat EKG at 23:26 showed A. fib with RVR with heart rate [address] or T wave abnormalities. No prior history of A. fib. She was placed on Cardizem drip with conversion to normal sinus rhythm and heart rates controlled after patient sedated on ventilator. She has been placed on low-dose norepinephrine. 05/27 Patient is seen and examined and remains in the intensive care unit. Patient remains intubated on mechanical ventilation with FiO2 of 60 decreased this morning to 50 and PEEP of 5. Pulse ox is 98%. Blood pressure 115/73, heart rate is in the 80s. Patient has been afebrile. Telemetry is sinus rhythm. Repeat blood work reveals WBC 73.5, hemoglobin 6.6, platelet count 452. Sodium 139, potassium 4.8, CO2 21, BUN 21 creatinine 0.38. Blood cultures are showing no growth. Patient is scheduled for transfusion 1 unit of packed RBCs today. Repeat chest x-ray reveals continued worsening left lung opacity likely reflecting worsening large left-sided pleural effusion and associated left lung atelectasis and/or acute infiltrate. Echo is pending. Cardizem is off. Patient underwent left thoracentesis this morning with removal of 1 and half liters of fluid. 05/28 Patient is seen and examined in the intensive care unit. Patient is intubated on mechanical ventilation with FiO2 of 40 and PEEP of 5. Pulse ox is 96%, blood pressure 118/69, heart rate is in the 80s. Telemetry is sinus rhythm. Patient has been afebrile. Repeat blood work reveals WBC 48, hemoglobin 7.5. Sodium 140, potassium 4.4, BUN 24 creatinine 0.42. Patient was transfused 1 unit packed RBCs yesterday. Echocardiogram has been obtained and report is pending. Repeat chest x-ray reveals persistent moderate left pleural effusion with associated atelectasis. Patient is currently on propofol and norepinephrine. PHYSICAL EXAMINATION Vital signs reviewed. CONSTITUTIONAL: No apparent distress, ill appearing on vent HEENT: Head is normocephalic. Pupils are equal, round. Sclerae anicteric. Mucous membranes of the mouth are moist. No JVD. No carotid bruit. CHEST EXAMINATION: Decreased breath sounds on left HEART EXAMINATION: Regular rate and rhythm. S1, S2 heard. No murmurs, gallops or rub. ABDOMEN: Soft, nontender. Positive bowel sounds. EXTREMITIES: 2+ peripheral pulses, no lower extremity edema and no calf tenderness. NEUROLOGIC EXAMINATION: Patient is sedated ASSESSMENT Paroxysmal atrial fibrillation, new onset, currently in sinus rhythm Acute on chronic respiratory failure with left lung collapse, left lung pleural effusion and lymphadenopathy, s/p left thoracentesis 05/27 History of COPD Hypertension Hyperlipidemia Fibromyalgia Hypotension may be related to sedation Acute anemia scheduled for transfusion 1 unit packed RBCs PLAN Patient's main presentation of shortness breath related to left lung opacification and pleural effusion. Check 2-D echo. Patient had decompensation and unclear if A. fib actually cause decompensation or was during the same time period. If has recurrent episodes may consider rhythm management with amiodarone. Await further workup of pleural effusion and hold on anticoagulation pending any need for biopsy and due to anemia. CHADSVASC score appears to be 2 for hypertension and female Nurse practitioner note has been reviewed, I agree with documented findings and plan of care. Patient was seen and examined. Objective - Vital Signs Vital signs: Vital Signs Temp 98.3 F 05/28/24 08:00 Pulse 88 05/28/24 08:25 Resp 24 05/28/24 08:15 BP 118/69 05/28/24 08:15 Pulse Ox 96 05/28/24 08:15 FiO2 40 05/28/24 08:08 Intake & Output 05/27/24 05/28/24 05/28/24 18:59 06:59 18:59 Intake Total 7740.414 7399.858 272 Output Total 495 625 105 Balance 1358.830 6794.858 167 Weight 58.5 kg 59.2 kg Intake: IV 539 1033 206 Cefepime 2 gm In Sodium 100 Chloride 0.9% 100 ml @ 25 mls/hr IVPB Q8H [facility] Rx#: [id number] Lactated Ringers 1,000 ml 400 1000 200 @ 100 mls/hr IV .Q10H [facility] Rx#:[id number] pressure bag 39 33 6 Intake, IV Titration 595.771 298.858 Amount Norepinephrine 4 mg In 295.650 51.02 Sodium Chloride 0.9% 250 ml @ 0.03 MCG/KG/MIN 6. 221 mls/hr IV .Q24H [facility] Rx#:[id number] Sodium Chloride 0.9% 80 135.349 81.282 ml @ 0.5 MCG/KG/HR 2.722 mls/hr IV .Q24H [facility] with fentaNYL (PF) 1,000 mcg Rx#:[id number] propofoL 1,000 mg In 164.772 166.556 Empty Bag 1 bag @ 15 MCG/ KG/MIN 4.899 mls/hr IV . [id number] [facility] Rx#:[id number] Tube Feeding 100 324 66 Blood Product 280 Rc Pheresis 2 As3 Unit 280 [id number] Other 60 Output: Urine 495 625 105 ABP, PAP, CO, CI - Last Documented Arterial Blood Pressure 101/80 - Labs CBC & Chem 7: 05/28/24 05:20 05/28/24 05:20 Labs: Abnormal Lab Results - Last 24 Hours (Table) 05/27/24 05/27/24 05/27/24 Range/Units 05:00 09:13 12:04 WBC (3.8-10.6) k/uL RBC (3.80-5.40) m/uL Hgb (11.4-16.0) gm/dL Hct (34.0-46.0) % MCV (80.0-100.0) fL MCHC (31.0-37.0) g/dL RDW (11.5-15.5) % Neutrophils # (Manual) (1.3-7.7) k/uL Myelocytes # (Manual) (0) k/uL ABG pO2 (83-108) mmHg ABG HCO3 (21-25) mmol/L ABG Total CO2 (19-24) mmol/L ABG O2 Saturation (94-97) % Chloride (98-107) mmol/L BUN (7-17) mg/dL Creatinine (0.52-1.04) mg/dL Glucose (74-99) mg/dL POC Glucose (mg/dL) 222 H (70-110) mg/dL Calcium (8.4-10.2) mg/dL Total Protein (6.3-8.2) g/dL Procalcitonin 6.77 H (0.02-0.09) ng/mL Crossmatch See Detail 05/27/24 05/28/24 05/28/24 Range/Units 18:14 01:23 05:20 WBC 48.1 H (3.8-10.6) k/uL RBC 2.52 L (3.80-5.40) m/uL Hgb 7.5 L (11.4-16.0) gm/dL Hct 25.6 L (34.0-46.0) % MCV 101.6 H (80.0-100.0) fL MCHC 29.3 L (31.0-37.0) g/dL RDW 17.1 H (11.5-15.5) % Neutrophils # (Manual) 47.10 H (1.3-7.7) k/uL Myelocytes # (Manual) 0.48 H (0) k/uL ABG pO2 (83-108) mmHg ABG HCO3 (21-25) mmol/L ABG Total CO2 (19-24) mmol/L ABG O2 Saturation (94-97) % Chloride (98-107) mmol/L BUN (7-17) mg/dL Creatinine (0.52-1.04) mg/dL Glucose (74-99) mg/dL POC Glucose (mg/dL) 213 H 237 H (70-110) mg/dL Calcium (8.4-10.2) mg/dL Total Protein (6.3-8.2) g/dL Procalcitonin (0.02-0.09) ng/mL Crossmatch 05/28/24 05/28/24 Range/Units 05:20 06:36 WBC (3.8-10.6) k/uL RBC (3.80-5.40) m/uL Hgb (11.4-16.0) gm/dL Hct (34.0-46.0) % MCV (80.0-100.0) fL MCHC (31.0-37.0) g/dL RDW (11.5-15.5) % Neutrophils # (Manual) (1.3-7.7) k/uL Myelocytes # (Manual) (0) k/uL ABG pO2 119 H (83-108) mmHg ABG HCO3 28 H (21-25) mmol/L ABG Total CO2 29 H (19-24) mmol/L ABG O2 Saturation 99.2 H (94-97) % Chloride 111 H (98-107) mmol/L BUN 24 H (7-17) mg/dL Creatinine 0.42 L (0.52-1.04) mg/dL Glucose 215 H (74-99) mg/dL POC Glucose (mg/dL) (70-110) mg/dL Calcium 8.2 L (8.4-10.2) mg/dL Total Protein 4.6 L (6.3-8.2) g/dL Procalcitonin (0.02-0.09) ng/mL Crossmatch Microbiology - Last 24 Hours (Table) 05/25/24 15:45 Blood Culture - Preliminary Blood 05/25/24 16:00 Blood Culture - Preliminary Blood 05/26/24 10:00 Acid Fast Bacilli Smear - Preliminary Bronchoalviolar Lavage - Left 05/26/24 10:00 Gram Stain - Preliminary Bronchoalviolar Lavage - Left Bronchial Washings Culture - Preliminary
[2024-05-28 11:42] LABS: LDH, Body Fluid Source Pleural fluid
[2024-05-28 11:52] LABS: Glucose,Whole Blood 211 mg/dL (70-110)
[2024-05-28 17:21] LABS: Glucose,Whole Blood 220 mg/dL (70-110)
--- NOTE | 2024-05-28 21:57 | P.PN ---
Subjective This is a pleasant 63 years old female with past medical history of multiple medical problems including hypertension, hyperlipidemia, degenerative disc disease, fibromyalgia, multiple sclerosis, anxiety and depression. Patient presents because of worsening dyspnea for 2 days. Patient has a known case of bronchitis which is chronic and there is a 4 reported at home about 3 days prior to arrival to the hospital. Patient currently is in severe respiratory distress and cannot provide information, training intern A-team was called for worsening dyspnea. Patient oxygen requirement went up to 6 L/min and was getting worse so one-time dose of IV Lasix provided and she was placed on BiPAP, she could tolerated only for 10 minutes and then she started becoming tachycardic and tachypneic with a breathing rate between 40s to 50s. She was hypoxic diaphoretic, sweating and pale. Another A-team was called and patient was moved to the ICU where she got emergent intubated. Staff tried to call the son and left a message I called the son myself Mr. Jefferson at [phone] and left a message to call back. Information was obtained from staff and medical record. Patient was afebrile, on admission She has significant worsening leukocytosis up to 40,000, hemoglobin dropped to 8.5. Platelet count were up to 561 . Liver enzymes mildly elevated. D-dimer was elevated 5.5 and CTA of the chest was obtained showing significant abnormalities : No pulmonary embolism, large left pleural effusion, loculated with complete left lung collapse with possible splenic involvement and enlarged mediastinal lymphadenopathy findings suspicious for malignancy 05/27/2024 Patient got extubated yesterday Patient today was still drowsy lethargic somewhat confused and very weak. She has large pleural effusion and she underwent thoracocentesis today with 1.5 of pleural fluid aspirated and sent for studies. Her WBC jumped up to 73 K and hemoglobin down to 6.6. As such her IV vancomycin continued, IV cefepime added and patient received 1 unit of blood transfusion today Patient also kept on IV Solu-Medrol and Ringer lactate at 100 mL/h ProCalcitonin is elevated 6.7%. 05/28/2024 Patient remains in the ICU, it looks like she was intubated the night before She remains on IV Solu-Medrol and broad-spectrum antibiotic with IV vancomycin and cefepime. No IV fluids running. No anticoagulation because of the bleeding. Hemoglobin improved 6.6 up to 7.5 Leukocytosis improving 73 down to 48 Objective - Vital Signs Vital signs: Vital Signs Temp 97.7 F 05/28/24 16:00 Pulse 80 05/28/24 18:00 Resp 24 05/28/24 18:00 BP 116/70 05/28/24 18:00 Pulse Ox 95 05/28/24 18:00 FiO2 40 05/28/24 16:00 Intake & Output 05/27/24 05/28/24 05/28/24 18:59 06:59 18:59 Intake Total 2302.459 7792.858 1801.689 Output Total 495 625 775 Balance 3748.435 0192.858 1026.689 Weight 58.5 kg 59.2 kg Intake: IV 539 1033 1236 Cefepime 2 gm In Sodium 100 Chloride 0.9% 100 ml @ 25 mls/hr IVPB Q8H [facility] Rx#: [id number] Lactated Ringers 1,000 ml 400 1000 1200 @ 100 mls/hr IV .Q10H [facility] Rx#:[id number] pressure bag 39 33 36 Intake, IV Titration 595.771 298.858 142.689 Amount Norepinephrine 4 mg In 295.650 51.02 42.689 Sodium Chloride 0.9% 250 ml @ 0.03 MCG/KG/MIN 6. 221 mls/hr IV .Q24H [facility] Rx#:[id number] Sodium Chloride 0.9% 80 135.349 81.282 ml @ 0.5 MCG/KG/HR 2.722 mls/hr IV .Q24H [facility] with fentaNYL (PF) 1,000 mcg Rx#:[id number] propofoL 1,000 mg In 164.772 166.556 100 Empty Bag 1 bag @ 15 MCG/ KG/MIN 4.899 mls/hr IV . [id number] [facility] Rx#:[id number] Tube Feeding 100 324 363 Blood Product 280 Rc Pheresis 2 As3 Unit 280 [id number] Other 60 60 Output: Urine 495 625 775 ABP, PAP, CO, CI - Last Documented Arterial Blood Pressure 99/63 - Exam -GENERAL: The patient is awake but very weak and lethargic HEENT: Pupils are round and equally reacting to light. EOMI. No scleral icterus. No conjunctival pallor. Normocephalic, atraumatic. No pharyngeal erythema. No thyromegaly. CARDIOVASCULAR: S1 and S2 present. No murmurs, rubs, or gallops. PULMONARY: Chest is clear to auscultation, no wheezing , no crackles. ABDOMEN: Soft, nontender, nondistended, normoactive bowel sounds. No palpable organomegaly. MUSCULOSKELETAL: No joint swelling or deformity. EXTREMITIES: No cyanosis, clubbing, or pedal edema. NEUROLOGICAL: Gross neurological examination did not reveal any focal deficits. SKIN: No rashes. no petechiae. - Labs CBC & Chem 7: 05/28/24 05:20 05/28/24 05:20 Labs: Abnormal Lab Results - Last 24 Hours (Table) 05/28/24 05/28/24 05/28/24 Range/Units 01:23 05:20 05:20 WBC 48.1 H (3.8-10.6) k/uL RBC 2.52 L (3.80-5.40) m/uL Hgb 7.5 L (11.4-16.0) gm/dL Hct 25.6 L (34.0-46.0) % MCV 101.6 H (80.0-100.0) fL MCHC 29.3 L (31.0-37.0) g/dL RDW 17.1 H (11.5-15.5) % Neutrophils # (Manual) 47.10 H (1.3-7.7) k/uL Myelocytes # (Manual) 0.48 H (0) k/uL ABG pO2 (83-108) mmHg ABG HCO3 (21-25) mmol/L ABG Total CO2 (19-24) mmol/L ABG O2 Saturation (94-97) % Chloride 111 H (98-107) mmol/L BUN 24 H (7-17) mg/dL Creatinine 0.42 L (0.52-1.04) mg/dL Glucose 215 H (74-99) mg/dL POC Glucose (mg/dL) 237 H (70-110) mg/dL Calcium 8.2 L (8.4-10.2) mg/dL Total Protein 4.6 L (6.3-8.2) g/dL 05/28/24 05/28/24 05/28/24 Range/Units 06:36 11:51 17:19 WBC (3.8-10.6) k/uL RBC (3.80-5.40) m/uL Hgb (11.4-16.0) gm/dL Hct (34.0-46.0) % MCV (80.0-100.0) fL MCHC (31.0-37.0) g/dL RDW (11.5-15.5) % Neutrophils # (Manual) (1.3-7.7) k/uL Myelocytes # (Manual) (0) k/uL ABG pO2 119 H (83-108) mmHg ABG HCO3 28 H (21-25) mmol/L ABG Total CO2 29 H (19-24) mmol/L ABG O2 Saturation 99.2 H (94-97) % Chloride (98-107) mmol/L BUN (7-17) mg/dL Creatinine (0.52-1.04) mg/dL Glucose (74-99) mg/dL POC Glucose (mg/dL) 211 H 220 H (70-110) mg/dL Calcium (8.4-10.2) mg/dL Total Protein (6.3-8.2) g/dL Microbiology - Last 24 Hours (Table) 05/27/24 09:13 Nasal Screen MRSA/MSSA - Final Nasopharyngeal Swab 05/26/24 10:00 Gram Stain - Final Bronchoalviolar Lavage - Left Bronchial Washings Culture - Final 05/25/24 15:45 Blood Culture - Preliminary Blood 05/25/24 16:00 Blood Culture - Preliminary Blood 05/26/24 10:00 Acid Fast Bacilli Smear - Preliminary Bronchoalviolar Lavage - Left Assessment and Plan Assessment: Large loculated left pleural effusion with associated complete collapse of the left lung with mediastinal lymphadenopathy suspicious for malignancy is high. Also there is involvement of the spleen through rate controlled but no anticoagulation diaphragm. Status post thoracocentesis on 05/27 with 1.5 L removed Severe acute hypoxic respiratory failure, present on admission. Requiring intubation and mechanical ventilation. Acute COPD exacerbation Severe leukocytosis with findings above pneumonia is highly suspected. worsening anemia requiring 1 unit of blood transfusion on 05/27 New onset A-fib and RVR, currently rate controlled but no anticoagulation for severe anemia Hypertension Hyperlipidemia Degenerative disc disease Fibromyalgia Multiple sclerosis Anxiety and depression Plan: Continue patient monitoring in the ICU Patient s/p extubation S/p thoracocentesis and follow-up pleural fluid studies Remains on IV Solu-Medrol Continue with broad-spectrum antibiotics with vancomycin and cefepime Follow-up blood culture Cardiology on the case for A-fib RVR but no anticoagulation for anemia Pulmonary, cardiology and hematology/oncology consult Labs and medication were reviewed.. Continue same treatment. Continue with symptomatic treatment. Resume home medication. Monitor labs and vitals. DVT and GI prophylaxis. Further recommendations as per clinical course of the patient DVT prophylaxis:no Subcutaneous heparin GI Prophylaxis: Pepcid Prognosis is guarded
[2024-05-29 00:07] LABS: Glucose,Whole Blood 224 mg/dL (70-110)
[2024-05-29 05:21] LABS: ABG Base Excess 3.7 mmol/L; ABG HCO3 29 mmol/L (21-25); ABG Oxygen Saturation 96.2 % (94-97); ABG PCO2 46 mmHg (35-45); ABG PH 7.41 (7.35-7.45); ABG PO2 77 mmHg (83-108); ABG TCO2 30 mmol/L (19-24); Allen Test Performed? Yes
[2024-05-29 05:48] LABS: African American GFR (CKD) >90 (>60 ml/min/1.73 sqM); Anion Gap 2 mmol/L; Blood Urea Nitrogen 25 mg/dL (7-17); Calcium 8.3 mg/dL (8.4-10.2); Carbon Dioxide 28 mmol/L (22-30); Chloride 111 mmol/L (98-107); Glucose 168 mg/dL (74-99); Non-African American GFR(CKD) >90 (>60 ml/min/1.73 sqM); Potassium 4.6 mmol/L (3.5-5.1); Sodium 141 mmol/L (137-145)
[2024-05-29 05:50] LABS: Anisocytosis Slight; HCT 26.7 % (34.0-46.0); Hypochromasia Marked; MCH 30.4 pg (25.0-35.0); MCHC 29.9 g/dL (31.0-37.0); MCV 101.5 fL (80.0-100.0); Macrocytosis Moderate; Mean Platelet Volume 9.3; Platelet Count 368 k/uL (150-450); RBC 2.63 m/uL (3.80-5.40); RDW 16.7 % (11.5-15.5); WBC 31.4 k/uL (3.8-10.6)
[2024-05-29 07:14] LABS: Band Neutrophils % 2 %; Lymphocytes # (M) 0.94 k/uL (1.0-4.8); Monocytes # (M) 0.31 k/uL (0-1.0); Neutrophils % (M) 94 %; Nucleated Red Blood Cells 0 /100 WBC (0-0); Total Cells Counted 100
[2024-05-29 07:16] LABS: RBC Fragments Present; Stomatocytes Present
--- NOTE | 2024-05-29 07:38 | XR ---
EXAMINATION TYPE: XR chest 1V portable DATE OF EXAM: 05/29/2024 Comparison: 05/28/2024 Clinical History: 63 year-old female tube placement Findings: ET tube tip remains at the medial clavicular heads. NG tube courses below the diaphragm. Left subclav gaston CVC tip cavoatrial junction. Undergoing moderate left pleural effusion tracking up to the apex wi th underlying patchy opacities. Hyperinflation. Patchy interstitial densities are now worsening on th e right. Impression: COPD with ongoing moderate left pleural effusion with underlying atelectasis and/or consolidation thr oughout the left lung. Now developing interstitial and patchy opacities throughout the right lung.
[2024-05-29] MEDS: PANTOPRAZOLE 40 MG/10 ML VIAL IVP SCH (11:27)
[2024-05-29] MEDS: HEPARIN SODIUM,PORCINE 5,000 UNIT/ML 1 ML VIAL SQ SCH (11:28)
[2024-05-29 11:59] LABS: Glucose,Whole Blood 135 mg/dL (70-110)
--- NOTE | 2024-05-29 12:29 | P.PN ---
Subjective Progress Note Date: 05/29/24 63-year-old female seen this morning in consultation. The patient was seen initially in the emergency department, on May 25. She apparently came in with complaints of shortness of breath, and low saturations. The patient has been treated recently for bronchitis with steroids and antibiotics. This morning, a rapid response was called on this patient, and, the charge nurse called me, to tell me that the patient would benefit from Lasix, and BiPAP. That was done initially, but subsequent to that, another rapid response was called on this patient, and the patient needed to be transferred to the intensive care unit, for intubation and mechanical ventilation. Currently, she is on volume assist- control, rate 20, tidal volume 350, FiO2 100%, PEEP of 5. She is on a Cardizem drip at 10 mg an hour for atrial fibrillation, propofol at 60 mcg/kg/min, and she is receiving some fluid, i.e. saline, at 1 L, as a fluid bolus. Afterwards, she will be switched to lactated Ringer's at 100 cc an hour. She had a an arterial line placed, and a central line placed. We did a right radial arterial line, and a left subclavian triple-lumen catheter. She was intubated by the [employer]. Current labs include a white count of 54.7, hemoglobin 8.7, hematocrit 29.7, and a platelet count of 605,000. Initial blood gases showed a pO2 of 146, pCO2 of 61, and pH is 7.24. The rate was increased from 28 to 24 breaths/min. In addition, the FiO2 was dropped down to 70%. Sodium 138, potassium 4.9, chlorides 102, CO2 28, BUN 18, creatinine 0.45. Glucose is 288. Calcium is 8.9. Lactic acid 1.3. The left chest reveals a pleural effusion, with possible loculations. An ultrasound was ordered. In addition, the patient had bronchoscopy, with airway examination, therapeutic lavage, BAL, brushings left lower lobe, and endobronchial and transbronchial biopsies left lower lobe. Progress note dated May 27, 2024. 63-year-old female seen in consultation yesterday. Please see the note above. The patient developed lopez respiratory failure, and was intubated, yesterday, May 26. She remains on mechanical ventilator. She is on volume assist- control, rate 24, tidal volume 350, FiO2 60%, to be reduced down to 50%, PEEP of 5. Blood gases show pO2 of 112, pCO2 44, pH is 7.37. The patient continues on propofol at 60 mcg/kg/min, norepinephrine at 7 mcg/min, fentanyl at 2 mcg/kg/h, LR at 100 cc an hour. The patient is on vancomycin, and we add cefepime. The patient had a left-sided thoracentesis today. 1.5 L of milky slightly green fluid was removed from the left pleural space. The patient's procalcitonin level is elevated 9.74. Current labs include a white count of 73.5, hemoglobin 6.6, hematocrit 22.2, platelet count 452,000. The patient will get 1 unit of PRBCs. In addition, sodium 139, potassium 4.8, chlorides 108, CO2 21, anion gap 10, BUN 21, creatinine 0.38. Calcium is 8.3. Magnesium is 1.9. Cultures are thus far negative. The postthoracentesis chest x-ray shows an improved left- sided pleural fluid collection, and a small to moderate size left-sided hydropneumothorax. Progress note dated May 28, 2024. 63-year-old female seen in consultation 2 days ago. The patient remains on mechanical ventilator. She is seen today in room 262. She is on volume assist- control, rate 24, tidal volume 350, FiO2 50%, PEEP of 5. Blood gases show pO2 119, pCO2 45, pH is 7.40. The FiO2 will be reduced at 40%. She is sedated with propofol at 65 mcg/kg/min, norepinephrine at 1.2 mcg/min, and fentanyl at 2 mcg/kg/h. She is getting lactated Ringer's at 100 cc an hour, and vital high- protein at 33 cc an hour. She continues on cefepime, and vancomycin. Current laboratory data includes a white count 48.1, hemoglobin 7.5, hematocrit 25.6, and platelet count 382,000. Sodium 140, potassium 4.4, chlorides 111, CO2 26, BUN 24, creatinine 0.42. Glucose is 215. Calcium 8.2. Cultures thus far are negative. That includes bronchoscopy results. Chest x-ray shows a relatively clear right lung. There is some haziness, on the left side, with a left-sided pleural effusion. She did undergo thoracentesis yesterday. On 05/29/2024, seen the patient for a follow-up. This morning, the patient remains intubated on mechanical ventilator. I reviewed the records and the patient came to us with a complicated loculated large left-sided pleural effusion which was drained and the fluid is an exudate with negative cultures. Subsequent chest x-ray from today still showing some loculated left-sided pleural effusion. The patient remains on a combination of antibiotics utilizing cefepime and vancomycin. This morning, the patient remains on propofol running at 60 mcg/kg/min and fentanyl at 2 mcg/kg/h. Patient remains on lactated Ringer at rate of 100 cc an hour. Norepinephrine drip has been discontinued approximately 24 hours ago. She is on assist-control mode of mechanical ventilation at rate of 24, tidal volume of 350, FiO2 of 40% with a PEEP of 5 and a blood gases showing a pH of 7.41 with a pCO2 of 46 and pO2 of 77. The white cell count is down to 31 and the hemoglobin is at 8 with a platelet count of 368. The procalcitonin level is downtrending from 9.7 down to 6.7. The rest of the electrolytes are stable with a BUN of 25 and a creatinine of 0.4 and a serum bicarb of 28. The patient is arousable while being off of sedation. Will check weaning parameters and assess her candidacy for further weaning. The patient is on vital high-protein at rate of 33 cc an hour. Objective - Vital Signs Vital signs: Vital Signs Temp 97.8 F 05/29/24 08:00 Pulse 98 05/29/24 08:45 Resp 15 05/29/24 08:45 BP 108/62 05/29/24 08:45 Pulse Ox 97 05/29/24 08:45 FiO2 40 05/29/24 08:06 Intake & Output 05/28/24 05/29/24 05/29/24 18:59 06:59 18:59 Intake Total 2070.689 2030.611 302 Output Total 825 690 140 Balance 3061.973 0908.611 162 Weight 64.1 kg Intake: IV 1339 1236 206 Lactated Ringers 1,000 ml 1300 1200 200 @ 100 mls/hr IV .Q10H [facility] Rx#:[id number] pressure bag 39 36 6 Intake, IV Titration 242.689 398.611 Amount Norepinephrine 4 mg In 42.689 Sodium Chloride 0.9% 250 ml @ 0.03 MCG/KG/MIN 6. 221 mls/hr IV .Q24H [facility] Rx#:[id number] Sodium Chloride 0.9% 80 179.800 ml @ 0.5 MCG/KG/HR 2.722 mls/hr IV .Q24H [facility] with fentaNYL (PF) 1,000 mcg Rx#:[id number] propofoL 1,000 mg In 200 218.811 Empty Bag 1 bag @ 15 MCG/ KG/MIN 4.899 mls/hr IV . [id number] [facility] Rx#:[id number] Tube Feeding 429 396 66 Other 60 30 Output: Urine 825 690 140 ABP, PAP, CO, CI - Last Documented Arterial Blood Pressure 157/66 - Exam No acute distress, sedated, and intubated orally, with an oral NG tube. The patient remains intubated on the mechanical ventilator. The patient is rece iving sedation holiday for now. Orogastric and orotracheal tube are both in place. Head exam was generally normal. There was no scleral icterus or corneal arcus. Mucous membranes were moist. HEENT examination is grossly unremarkable. Neck supple. Full range of motion. No adenopathy thyromegaly or neck vein distention. Cardiovascular examination reveals regular rhythm rate. S1-S2 normal. No S3 or S4. No discernible murmur noted. Heart sounds are distant. Lungs reveal bilateral coarse rhonchi. No expiratory wheezes. No crackles. Breath sounds equal. Diminished breath on the left compared to the right. No significant wheezes or rhonchi. Abdomen soft without bowel sounds. No masses or tenderness. Extremities are intact. No cyanosis clubbing or edema. Skin is without rash or lesion. Neurologic examination reveals that the patient is arousable and following simple commands and moving all 4 extremities. Generalized body weakness in all 4 extremities. - Labs CBC & Chem 7: 05/29/24 05:10 05/29/24 05:10 Labs: Abnormal Lab Results - Last 24 Hours (Table) 05/28/24 05/28/24 05/29/24 Range/Units 11:51 17:19 00:05 WBC (3.8-10.6) k/uL RBC (3.80-5.40) m/uL Hgb (11.4-16.0) gm/dL Hct (34.0-46.0) % MCV (80.0-100.0) fL MCHC (31.0-37.0) g/dL RDW (11.5-15.5) % Neutrophils # (Manual) (1.3-7.7) k/uL Lymphocytes # (Manual) (1.0-4.8) k/uL ABG pCO2 (35-45) mmHg ABG pO2 (83-108) mmHg ABG HCO3 (21-25) mmol/L ABG Total CO2 (19-24) mmol/L Chloride (98-107) mmol/L BUN (7-17) mg/dL Creatinine (0.52-1.04) mg/dL Glucose (74-99) mg/dL POC Glucose (mg/dL) 211 H 220 H 224 H (70-110) mg/dL Calcium (8.4-10.2) mg/dL 05/29/24 05/29/24 05/29/24 Range/Units 05:10 05:10 05:25 WBC 31.4 H (3.8-10.6) k/uL RBC 2.63 L (3.80-5.40) m/uL Hgb 8.0 L (11.4-16.0) gm/dL Hct 26.7 L (34.0-46.0) % MCV 101.5 H (80.0-100.0) fL MCHC 29.9 L (31.0-37.0) g/dL RDW 16.7 H (11.5-15.5) % Neutrophils # (Manual) 30.10 H (1.3-7.7) k/uL Lymphocytes # (Manual) 0.94 L (1.0-4.8) k/uL ABG pCO2 46 H (35-45) mmHg ABG pO2 77 L (83-108) mmHg ABG HCO3 29 H (21-25) mmol/L ABG Total CO2 30 H (19-24) mmol/L Chloride 111 H (98-107) mmol/L BUN 25 H (7-17) mg/dL Creatinine 0.45 L (0.52-1.04) mg/dL Glucose 168 H (74-99) mg/dL POC Glucose (mg/dL) (70-110) mg/dL Calcium 8.3 L (8.4-10.2) mg/dL Microbiology - Last 24 Hours (Table) 05/25/24 15:45 Blood Culture - Preliminary Blood 05/25/24 16:00 Blood Culture - Preliminary Blood 05/27/24 09:45 Body Fluid Culture - Preliminary Pleural Fluid 05/27/24 09:45 Acid Fast Bacilli Smear - Preliminary Pleural Fluid 05/27/24 09:13 Nasal Screen MRSA/MSSA - Final Nasopharyngeal Swab 05/26/24 10:00 Gram Stain - Final Bronchoalviolar Lavage - Left Bronchial Washings Culture - Final Assessment and Plan Plan: Acute respiratory failure, requiring intubation, and mechanical ventilation, May 26, 2024. Acute left lung pneumonia. Severe leukocytosis, elevated procalcitonin level and a loculated left-sided pleural effusion representing a complicated parapneumonic effusion/empyema. The patient had also significant consolidation/atelectasis of the left lung, the pleural fluid cultures have been negative, the bronchoalveolar lavage has been also negative for any microbial growth. S/P bronchoscopy, with BAL, brushings, biopsies, left lower lobe. The airways are patent and the patient's cultures are negative S/P left-sided thoracentesis, with 1.5 L of fluid removed, May 27, 2024. There is residual loculated left-sided pleural effusion on today's chest x-ray. History of ongoing tobacco use with nicotine addiction. History of hypertension. History of hyperlipidemia. History of fibromyalgia. History of migraine cephalgia. History of ulcerative colitis. History of anxiety/depression. Paroxysmal atrial fibrillation current rhythm is sinus and the patient is off the Cardizem drip. Plan Will continue ventilator support Stop the sedation and check the patient's weaning parameters and assess readiness to wean and consider extubation today Will need a follow-up CAT scan of the chest to reevaluate the loculated left- sided pleural effusion and further drainage may be necessary White cell count is improving and will continue monitor the white cell count Monitor the procalcitonin level which is downtrending continue IV cefepime and vancomycin Hemodynamically stable on no pressors Cardizem drip has been discontinued Condition remains critical. Possible extubation today and will continue to follow make further recommendations based on her progress. This evaluation was done more than 30 minutes. PAF, sinus Time with Patient: Greater than 30
[2024-05-29 13:20] LABS: Nucleated Cells, Body Fluid 6820 /UL
[2024-05-29 18:01] LABS: Glucose,Whole Blood 167 mg/dL (70-110)
[2024-05-29] MEDS: ACETAMINOPHEN TAB 325 MG TAB PO PRN (21:01)
--- NOTE | 2024-05-29 23:59 | P.PN ---
Subjective Progress Note Date: 05/29/24 HISTORY OF PRESENTING ILLNESS This is a 63-year-old with past medical history significant for hypertension, hyperlipidemia, ulcerative colitis, fibromyalgia, multiple sclerosis, anxiety, tobacco abuse, syncopal episodes in the past. 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 She is currently intubated and sedated and history is supplied by chart. Patient has been having worsening shortness breath over last few days. She has history of chronic bronchitis and chronic respiratory failure. Initially was seen in the ER however on floor she had respiratory distress and 18 was called and initially tried IV Lasix however could not tolerate and became tachycardic into And eventually intubated. D-dimer was elevated at 5.5 and therefore CTA was performed which showed no PE however large left pleural e ffusion and loculated left lung collapse and enlarged mediastinal lymphadenectomy concerning for malignancy and therefore oncology was consulted. Cardiology was consult that secondary to A. fib with RVR. Initial EKG showing sinus tachycardia with heart rate 118 bpm however repeat EKG at 23:26 showed A. fib with RVR with heart rate [address] or T wave abnormalities. No prior history of A. fib. She was placed on Cardizem drip with conversion to normal sinus rhythm and heart rates controlled after patient sedated on ventilator. She has been placed on low-dose norepinephrine. 05/27 Patient is seen and examined and remains in the intensive care unit. Patient remains intubated on mechanical ventilation with FiO2 of 60 decreased this morning to 50 and PEEP of 5. Pulse ox is 98%. Blood pressure 115/73, heart rate is in the 80s. Patient has been afebrile. Telemetry is sinus rhythm. Repeat blood work reveals WBC 73.5, hemoglobin 6.6, platelet count 452. Sodium 139, potassium 4.8, CO2 21, BUN 21 creatinine 0.38. Blood cultures are showing no growth. Patient is scheduled for transfusion 1 unit of packed RBCs today. Repeat chest x-ray reveals continued worsening left lung opacity likely reflecting worsening large left-sided pleural effusion and associated left lung atelectasis and/or acute infiltrate. Echo is pending. Cardizem is off. Patient underwent left thoracentesis this morning with removal of 1 and half liters of fluid. 05/28 Patient is seen and examined in the intensive care unit. Patient is intubated on mechanical ventilation with FiO2 of 40 and PEEP of 5. Pulse ox is 96%, blood pressure 118/69, heart rate is in the 80s. Telemetry is sinus rhythm. Patient has been afebrile. Repeat blood work reveals WBC 48, hemoglobin 7.5. Sodium 14 0, potassium 4.4, BUN 24 creatinine 0.42. Patient was transfused 1 unit packed RBCs yesterday. Echocardiogram has been obtained and report is pending. Repeat chest x-ray reveals persistent moderate left pleural effusion with associated atelectasis. Patient is currently on propofol and norepinephrine. 05/29/2024 Patient is seen and examined at bedside. Hemoglobin 8, WBC 31.4, creatinine 0.4, echo report is awaited Patient continues to be on vent support. PHYSICAL EXAMINATION Vital signs reviewed. CONSTITUTIONAL: No apparent distress, ill appearing on vent HEENT: Head is normocephalic. Pupils are equal, round. Sclerae anicteric. Mucous membranes of the mouth are moist. No JVD. No carotid bruit. CHEST EXAMINATION: Decreased breath sounds on left HEART EXAMINATION: Regular rate and rhythm. S1, S2 heard. No murmurs, gallops or rub. ABDOMEN: Soft, nontender. Positive bowel sounds. EXTREMITIES: 2+ peripheral pulses, no lower extremity edema and no calf tenderness. NEUROLOGIC EXAMINATION: Patient is sedated ASSESSMENT Paroxysmal atrial fibrillation, newly diagnosed Acute on chronic respiratory failure with left lung collapse, left lung pleural effusion and lymphadenopathy, s/p left thoracentesis 05/27 History of COPD Hypertension Hyperlipidemia Fibromyalgia Hypotension may be related to sedation Acute anemia scheduled for transfusion 1 unit packed RBCs PLAN Patient's main presentation of shortness breath related to left lung opacification and pleural effusion. Check 2-D echo. Patient had decompensation and unclear if A. fib actually cause decompensation or was during the same time period. Increase metoprolol If has recurrent episodes may consider rhythm management with amiodarone. Await further workup of pleural effusion and hold on anticoagulation pending any need for biopsy and due to anemia. CHADSVASC score appears to be 2 for hypertension and female Objective - Vital Signs Vital signs: Vital Signs Temp 98.2 F 05/29/24 20:00 Pulse 94 05/29/24 23:00 Resp 17 05/29/24 23:00 BP 154/93 05/29/24 23:00 Pulse Ox 96 05/29/24 22:00 FiO2 40 05/29/24 16:00 Intake & Output 05/29/24 05/29/24 05/30/24 06:59 18:59 06:59 Intake Total 2030.611 992.021 415 Output Total 690 807 700 Balance 1340.611 185.021 -285 Weight 64.1 kg Intake: IV 1236 677 415 Cefepime 2 gm In Sodium 200 Chloride 0.9% 100 ml @ 25 mls/hr IVPB Q8H [facility] Rx#: [id number] Lactated Ringers 1,000 ml 1200 200 400 @ 100 mls/hr IV .Q10H [facility] Rx#:[id number] Vancomycin 1,000 mg In 250 Sodium Chloride 0.9% 250 ml @ 125 mls/hr IVPB Q12H [facility] Rx#:[id number] pressure bag 36 27 15 Intake, IV Titration 398.611 219.021 Amount Norepinephrine 4 mg In 0 Sodium Chloride 0.9% 250 ml @ 0.03 MCG/KG/MIN 6. 221 mls/hr IV .Q24H [facility] Rx#:[id number] Sodium Chloride 0.9% 80 179.800 119.021 ml @ 0.5 MCG/KG/HR 2.722 mls/hr IV .Q24H [facility] with fentaNYL (PF) 1,000 mcg Rx#:[id number] propofoL 1,000 mg In 218.811 100 Empty Bag 1 bag @ 15 MCG/ KG/MIN 4.899 mls/hr IV . [id number] [facility] Rx#:[id number] Tube Feeding 396 66 Other 30 Output: Urine 690 807 500 Urine/Stool Mix 200 ABP, PAP, CO, CI - Last Documented Arterial Blood Pressure 121/88 - Labs CBC & Chem 7: 05/29/24 05:10 05/29/24 05:10 Labs: Abnormal Lab Results - Last 24 Hours (Table) 05/26/24 05/29/24 05/29/24 Range/Units 10:00 00:05 05:10 WBC 31.4 H (3.8-10.6) k/uL RBC 2.63 L (3.80-5.40) m/uL Hgb 8.0 L (11.4-16.0) gm/dL Hct 26.7 L (34.0-46.0) % MCV 101.5 H (80.0-100.0) fL MCHC 29.9 L (31.0-37.0) g/dL RDW 16.7 H (11.5-15.5) % Neutrophils # (Manual) 30.10 H (1.3-7.7) k/uL Lymphocytes # (Manual) 0.94 L (1.0-4.8) k/uL ABG pCO2 (35-45) mmHg ABG pO2 (83-108) mmHg ABG HCO3 (21-25) mmol/L ABG Total CO2 (19-24) mmol/L Chloride (98-107) mmol/L BUN (7-17) mg/dL Creatinine (0.52-1.04) mg/dL Glucose (74-99) mg/dL POC Glucose (mg/dL) 224 H (70-110) mg/dL Calcium (8.4-10.2) mg/dL Fluid RBC 5610 H (0-1999) /uL 05/29/24 05/29/24 05/29/24 Range/Units 05:10 05:25 11:56 WBC (3.8-10.6) k/uL RBC (3.80-5.40) m/uL Hgb (11.4-16.0) gm/dL Hct (34.0-46.0) % MCV (80.0-100.0) fL MCHC (31.0-37.0) g/dL RDW (11.5-15.5) % Neutrophils # (Manual) (1.3-7.7) k/uL Lymphocytes # (Manual) (1.0-4.8) k/uL ABG pCO2 46 H (35-45) mmHg ABG pO2 77 L (83-108) mmHg ABG HCO3 29 H (21-25) mmol/L ABG Total CO2 30 H (19-24) mmol/L Chloride 111 H (98-107) mmol/L BUN 25 H (7-17) mg/dL Creatinine 0.45 L (0.52-1.04) mg/dL Glucose 168 H (74-99) mg/dL POC Glucose (mg/dL) 135 H (70-110) mg/dL Calcium 8.3 L (8.4-10.2) mg/dL Fluid RBC (0-1999) /uL 05/29/24 Range/Units 18:00 WBC (3.8-10.6) k/uL RBC (3.80-5.40) m/uL Hgb (11.4-16.0) gm/dL Hct (34.0-46.0) % MCV (80.0-100.0) fL MCHC (31.0-37.0) g/dL RDW (11.5-15.5) % Neutrophils # (Manual) (1.3-7.7) k/uL Lymphocytes # (Manual) (1.0-4.8) k/uL ABG pCO2 (35-45) mmHg ABG pO2 (83-108) mmHg ABG HCO3 (21-25) mmol/L ABG Total CO2 (19-24) mmol/L Chloride (98-107) mmol/L BUN (7-17) mg/dL Creatinine (0.52-1.04) mg/dL Glucose (74-99) mg/dL POC Glucose (mg/dL) 167 H (70-110) mg/dL Calcium (8.4-10.2) mg/dL Fluid RBC (0-2000) /uL Microbiology - Last 24 Hours (Table) 05/27/24 09:45 Gram Stain - Preliminary Pleural Fluid Body Fluid Culture - Preliminary Alpha Hemolytic Streptococcus 05/26/24 10:00 Acid Fast Bacilli Smear - Preliminary Bronchoalviolar Lavage - Left 05/26/24 10:00 Gram Stain - Final Bronchoalviolar Lavage - Left Bronchial Washings Culture - Final 05/25/24 15:45 Blood Culture - Preliminary Blood 05/25/24 16:00 Blood Culture - Preliminary Blood 05/27/24 09:45 Acid Fast Bacilli Smear - Preliminary Pleural Fluid
[2024-05-30 00:41] LABS: Glucose,Whole Blood 162 mg/dL (70-110)
[2024-05-30 05:31] LABS: Glucose,Whole Blood 142 mg/dL (70-110)
[2024-05-30 05:55] LABS: Methylmalonic Acid 0.33 umol/L (<0.40)
--- NOTE | 2024-05-30 06:28 | P.PN ---
Subjective This is a pleasant 63 years old female with past medical history of multiple medical problems including hypertension, hyperlipidemia, degenerative disc disease, fibromyalgia, multiple sclerosis, anxiety and depression. Patient presents because of worsening dyspnea for 2 days. Patient has a known case of bronchitis which is chronic and there is a 4 reported at home about 3 days prior to arrival to the hospital. Patient currently is in severe respiratory distress and cannot provide information, pm technician A-team was called for worsening dyspnea. Patient oxygen requirement went up to 6 L/min and was getting worse so one-time dose of IV Lasix provided and she was placed on BiPAP, she could tolerated only for 10 minutes and then she started becoming tachycardic and tachypneic with a breathing rate between 40s to 50s. She was hypoxic diaphoretic, sweating and pale. Another A-team was called and patient was moved to the ICU where she got emergent intubated. Staff tried to call the son and left a message I called the son myself Mr. Jefferson at [phone] and left a message to call back. Information was obtained from staff and medical record. Patient was afebrile, on admission She has significant worsening leukocytosis up to 40,000, hemoglobin dropped to 8.5. Platelet count were up to 561 . Liver enzymes mildly elevated. D-dimer was elevated 5.5 and CTA of the chest was obtained showing significant abnormalities : No pulmonary embolism, large left pleural effusion, loculated with complete left lung collapse with possible splenic involvement and enlarged mediastinal lymphadenopathy findings suspicious for malignancy 05/27/2024 Patient got extubated yesterday Patient today was still drowsy lethargic somewhat confused and very weak. She has large pleural effusion and she underwent thoracocentesis today with 1.5 of pleural fluid aspirated and sent for studies. Her WBC jumped up to 73 K and hemoglobin down to 6.6. As such her IV vancomycin continued, IV cefepime added and patient received 1 unit of blood transfusion today Patient also kept on IV Solu-Medrol and Ringer lactate at 100 mL/h ProCalcitonin is elevated 6.7%. 05/28/2024 Patient remains in the ICU, it looks like she was intubated the night before She remains on IV Solu-Medrol and broad-spectrum antibiotic with IV vancomycin and cefepime. No IV fluids running. No anticoagulation because of the bleeding. Hemoglobin improved 6.6 up to 7.5 Leukocytosis improving 73 down to 48 05/29/24 Patient remains in the ICU intubated and sedated, She is still getting broad-spectrum antibiotic with IV vancomycin and cefepime She remains on IV Solu-Medrol Chest x-ray showing increased haziness on the left side lung and both basal areas more on the left side. Objective - Vital Signs Vital signs: Vital Signs Temp 97.8 F 05/29/24 08:00 Pulse 84 05/29/24 15:52 Resp 24 05/29/24 15:00 BP 123/73 05/29/24 15:00 Pulse Ox 96 05/29/24 15:00 FiO2 40 05/29/24 15:55 Intake & Output 05/28/24 05/29/24 05/29/24 18:59 06:59 18:59 Intake Total 2070.689 2030.611 516.523 Output Total 825 690 482 Balance 5096.342 4935.611 34.523 Weight 64.1 kg Intake: IV 1339 1236 324 Cefepime 2 gm In Sodium 100 Chloride 0.9% 100 ml @ 25 mls/hr IVPB Q8H [facility] Rx#: [id number] Lactated Ringers 1,000 ml 1300 1200 200 @ 100 mls/hr IV .Q10H [facility] Rx#:[id number] pressure bag 39 36 24 Intake, IV Titration 242.689 398.611 96.523 Amount Norepinephrine 4 mg In 42.689 0 Sodium Chloride 0.9% 250 ml @ 0.03 MCG/KG/MIN 6. 221 mls/hr IV .Q24H [facility] Rx#:[id number] Sodium Chloride 0.9% 80 179.800 96.523 ml @ 0.5 MCG/KG/HR 2.722 mls/hr IV .Q24H [facility] with fentaNYL (PF) 1,000 mcg Rx#:[id number] propofoL 1,000 mg In 200 218.811 Empty Bag 1 bag @ 15 MCG/ KG/MIN 4.899 mls/hr IV . [id number] [facility] Rx#:[id number] Tube Feeding 429 396 66 Other 60 30 Output: Urine 825 690 482 ABP, PAP, CO, CI - Last Documented Arterial Blood Pressure 139/74 - Exam -GENERAL: The patient is awake but very weak and lethargic HEENT: Pupils are round and equally reacting to light. EOMI. No scleral icterus. No conjunctival pallor. Normocephalic, atraumatic. No pharyngeal erythema. No thyromegaly. CARDIOVASCULAR: S1 and S2 present. No murmurs, rubs, or gallops. PULMONARY: Chest is clear to auscultation, no wheezing , no crackles. ABDOMEN: Soft, nontender, nondistended, normoactive bowel sounds. No palpable organomegaly. MUSCULOSKELETAL: No joint swelling or deformity. EXTREMITIES: No cyanosis, clubbing, or pedal edema. NEUROLOGICAL: Gross neurological examination did not reveal any focal deficits. SKIN: No rashes. no petechiae. - Labs CBC & Chem 7: 05/29/24 05:10 05/29/24 05:10 Labs: Abnormal Lab Results - Last 24 Hours (Table) 05/26/24 05/28/24 05/29/24 Range/Units 10:00 17:19 00:05 WBC (3.8-10.6) k/uL RBC (3.80-5.40) m/uL Hgb (11.4-16.0) gm/dL Hct (34.0-46.0) % MCV (80.0-100.0) fL MCHC (31.0-37.0) g/dL RDW (11.5-15.5) % Neutrophils # (Manual) (1.3-7.7) k/uL Lymphocytes # (Manual) (1.0-4.8) k/uL ABG pCO2 (35-45) mmHg ABG pO2 (83-108) mmHg ABG HCO3 (21-25) mmol/L ABG Total CO2 (19-24) mmol/L Chloride (98-107) mmol/L BUN (7-17) mg/dL Creatinine (0.52-1.04) mg/dL Glucose (74-99) mg/dL POC Glucose (mg/dL) 220 H 224 H (70-110) mg/dL Calcium (8.4-10.2) mg/dL Fluid RBC 5610 H (0-2000) /uL 05/29/24 05/29/24 05/29/24 Range/Units 05:10 05:10 05:25 WBC 31.4 H (3.8-10.6) k/uL RBC 2.63 L (3.80-5.40) m/uL Hgb 8.0 L (11.4-16.0) gm/dL Hct 26.7 L (34.0-46.0) % MCV 101.5 H (80.0-100.0) fL MCHC 29.9 L (31.0-37.0) g/dL RDW 16.7 H (11.5-15.5) % Neutrophils # (Manual) 30.10 H (1.3-7.7) k/uL Lymphocytes # (Manual) 0.94 L (1.0-4.8) k/uL ABG pCO2 46 H (35-45) mmHg ABG pO2 77 L (83-108) mmHg ABG HCO3 29 H (21-25) mmol/L ABG Total CO2 30 H (19-24) mmol/L Chloride 111 H (98-107) mmol/L BUN 25 H (7-17) mg/dL Creatinine 0.45 L (0.52-1.04) mg/dL Glucose 168 H (74-99) mg/dL POC Glucose (mg/dL) (70-110) mg/dL Calcium 8.3 L (8.4-10.2) mg/dL Fluid RBC (0-2000) /uL 05/29/24 Range/Units 11:56 WBC (3.8-10.6) k/uL RBC (3.80-5.40) m/uL Hgb (11.4-16.0) gm/dL Hct (34.0-46.0) % MCV (80.0-100.0) fL MCHC (31.0-37.0) g/dL RDW (11.5-15.5) % Neutrophils # (Manual) (1.3-7.7) k/uL Lymphocytes # (Manual) (1.0-4.8) k/uL ABG pCO2 (35-45) mmHg ABG pO2 (83-108) mmHg ABG HCO3 (21-25) mmol/L ABG Total CO2 (19-24) mmol/L Chloride (98-107) mmol/L BUN (7-17) mg/dL Creatinine (0.52-1.04) mg/dL Glucose (74-99) mg/dL POC Glucose (mg/dL) 135 H (70-110) mg/dL Calcium (8.4-10.2) mg/dL Fluid RBC (0-2000) /uL Microbiology - Last 24 Hours (Table) 05/27/24 09:45 Gram Stain - Preliminary Pleural Fluid Body Fluid Culture - Preliminary 05/26/24 10:00 Acid Fast Bacilli Smear - Preliminary Bronchoalviolar Lavage - Left 05/26/24 10:00 Gram Stain - Final Bronchoalviolar Lavage - Left Bronchial Washings Culture - Final 05/25/24 15:45 Blood Culture - Preliminary Blood 05/25/24 16:00 Blood Culture - Preliminary Blood 05/27/24 09:45 Acid Fast Bacilli Smear - Preliminary Pleural Fluid 05/27/24 09:13 Nasal Screen MRSA/MSSA - Final Nasopharyngeal Swab Assessment and Plan Assessment: Large loculated left pleural effusion with associated complete collapse of the left lung with mediastinal lymphadenopathy suspicious for malignancy is high. Also there is involvement of the spleen through rate controlled but no anticoa gulation diaphragm. Status post thoracocentesis on 05/27 with 1.5 L removed. S/P bronchoscopy, with BAL, brushings, biopsies, left lower lobe. Severe acute hypoxic respiratory failure, present on admission. Requiring intubation and mechanical ventilation. Acute COPD exacerbation Severe leukocytosis with findings above pneumonia is highly suspected. worsening anemia requiring 1 unit of blood transfusion on 05/27 New onset A-fib and RVR, currently rate controlled but no anticoagulation for severe anemia Hypertension Hyperlipidemia Degenerative disc disease Fibromyalgia Multiple sclerosis Anxiety and depression Plan: Continue patient monitoring in the ICU Follow-up respiratory culture S/p thoracocentesis and follow-up pleural fluid studies Remains on IV Solu-Medrol Continue with broad-spectrum antibiotics with vancomycin and cefepime Follow-up blood culture Cardiology on the case for A-fib RVR but no anticoagulation for anemia Pulmonary, cardiology and hematology/oncology consult Labs and medication were reviewed.. Continue same treatment. Continue with s ymptomatic treatment. Resume home medication. Monitor labs and vitals. DVT and GI prophylaxis. Further recommendations as per clinical course of the patient DVT prophylaxis:no Subcutaneous heparin GI Prophylaxis: Pepcid Prognosis is guarded
[2024-05-30 06:42] LABS: African American GFR (CKD) >90 (>60 ml/min/1.73 sqM); Anion Gap 5 mmol/L; Blood Urea Nitrogen 24 mg/dL (7-17); Calcium 8.3 mg/dL (8.4-10.2); Carbon Dioxide 27 mmol/L (22-30); Chloride 109 mmol/L (98-107); Glucose 134 mg/dL (74-99); Magnesium 1.9 mg/dL (1.6-2.3); Non-African American GFR(CKD) >90 (>60 ml/min/1.73 sqM); Potassium 4.3 mmol/L (3.5-5.1); Sodium 141 mmol/L (137-145)
[2024-05-30 06:44] LABS: Anisocytosis Slight; HCT 28.1 % (34.0-46.0); HGB 8.3 gm/dL (11.4-16.0); Hypochromasia Marked; MCH 30.3 pg (25.0-35.0); MCHC 29.5 g/dL (31.0-37.0); MCV 102.7 fL (80.0-100.0); Macrocytosis Moderate; Platelet Count 373 k/uL (150-450); RBC 2.73 m/uL (3.80-5.40); RDW 16.7 % (11.5-15.5); WBC 24.5 k/uL (3.8-10.6)
--- NOTE | 2024-05-30 07:32 | CA ---
Transthoracic Echo Report Name: Kaci Daley Age: 63 Gender: F : 1960 Exam Date: 05/27/2024 07:29 Exam Location: [facility] Ht (in): 64 Wt (lb): 120 Ordering Physician: Bob Watkins DO ([id number]) Attending/Referring Phys: Financial Project Manager Janelle Brennan RDCS Procedure CPT: Indications: re: pleural effusion Cardiac Hx: Technical Quality: Fair Contrast 1: Total Dose (mL): Contrast 2: Total Dose (mL): MEASUREMENTS (Male / Female) Normal Values 2D ECHO LV Diastolic Diameter PLAX 4.1 cm 4.2 - 5.9 / 3.9 - 5.3 cm LV Systolic Diameter PLAX 2.6 cm IVS Diastolic Thickness 0.8 cm 0.6 - 1.0 / 0.6 - 0.9 cm LVPW Diastolic Thickness 0.8 cm 0.6 - 1.0 / 0.6 - 0.9 cm LV Relative Wall Thickness 0.4 RV Internal Dim ED PLAX 2.8 cm LA Systolic Diameter LX 3.1 cm 3.0 - 4.0 / 2.7 - 3.8 cm LV Diastolic Volume MOD BP 62.7 cm??? 67 - 155 / 56 - 104 cm??? LV Systolic Volume MOD BP 17.3 cm??? 22 - 58 / 19 - 49 cm??? LV Ejection Fraction MOD BP 72.5 % >= 55 % LV Cardiac Index MOD BP 2493.4 cm???/min???m??? LV Diastolic Volume MOD 4C 57.3 cm??? LV Systolic Volume MOD 4C 13.7 cm??? LV Ejection Fraction MOD 4C 76.0 % LV Cardiac Index MOD 4C 2390.6 cm???/min???m??? LV Diastolic Length 4C 7.6 cm LV Systolic Length 4C 6.3 cm LV Diastolic Volume MOD 2C 60.3 cm??? LV Systolic Volume MOD 2C 15.6 cm??? LV Ejection Fraction MOD 2C 74.0 % LV Cardiac Index MOD 2C 2448.6 cm???/min???m??? LV Diastolic Length 2C 6.5 cm LV Systolic Length 2C 4.4 cm LA Volume 53.0 cm??? 18 - 58 / 22 - 52 cm??? LA Volume Index 33.9 cm???/m??? 16 - 28 cm???/m??? M-MODE Aortic Root Diameter MM 3.0 cm AV Cusp Separation MM 2.2 cm DOPPLER AV Peak Velocity 177.9 cm/s AV Peak Gradient 12.7 mmHg AI Peak Velocity 433.0 cm/s AI Peak Gradient 75.0 mmHg AI Pressure Half Time 562.1 ms MV Area PHT 4.3 cm??? Mitral E Point Velocity 86.8 cm/s Mitral A Point Velocity 75.6 cm/s Mitral E to A Ratio 1.1 MV Deceleration Time 175.6 ms TR Peak Velocity 292.0 cm/s TR Peak Gradient 34.1 mmHg Right Ventricular Systolic Press 39.1 mmHg FINDINGS Left Ventricle Left ventricular ejection fraction is estimated at 55-60 %. Left ventricular cavity size normal. Left ventricular wall thickness normal. Normal left ventricular wall motion. Right Ventricle Normal right ventricular size and function. Mild pulmonary hypertension. Right Atrium Normal right atrial size. No right atrial thrombus or mass seen. Left Atrium Mildly increased left atrial volume. Mildly increased left atrial area. Mitral Valve Mitral valve thickened. No mitral stenosis, or prolapse.mild mitral regurgitation. Aortic Valve Trileaflet aortic valve. Mild aortic regurgitation. No aortic stenosis. Tricuspid Valve Structurally normal tricuspid valve. Mild tricuspid regurgitation. Pulmonic Valve Structurally normal pulmonic valve. Trace pulmonic regurgitation. Pericardium No pericardial effusion. Pleural effusion. Aorta Normal size aortic root and proximal ascending aorta. CONCLUSIONS 1. Normal left ventricle size and systolic function 2. Mild mitral and tricuspid regurgitation and mild pulmonary hypertension Previewed by: Dr. Tam Mariscal MD (Electronically Signed) Final Date: 30 May 2024 07:31
--- NOTE | 2024-05-30 07:46 | XR ---
EXAMINATION TYPE: XR chest 1V portable DATE OF EXAM: 05/30/2024 Comparison: 05/29/2024 Clinical History: 63-year-old female pneumonia Findings: Left subclavian CVC tip at the cavoatrial junction. Left heart margin obscured by adjacent pleural pa renchymal opacity. A moderate left pleural effusion tracking up to the left apex may be slightly wors ening. Patchy opacity throughout the left lung persists. Increasing small right pleural effusion with prominent patchy right basilar opacity. Hyperinflation. Impression: 1. COPD with a similar or slightly worsening moderate left pleural effusion with patchy infiltrates t hroughout the left lung. 2. Increasing small right pleural effusion and increasing patchy infiltrate at the right lower lung.
[2024-05-30] MEDS ORDERED: BUTALB/APAP/CAFF 50-325-40MG TAB PO PRN (09:50)
[2024-05-30] MEDS ORDERED: ACYCLOVIR 200 MG CAP PO PRN (09:50)
[2024-05-30] MEDS: METOPROLOL TARTRATE 25 MG TAB PO SCH (11:05)
[2024-05-30] MEDS: ATORVASTATIN 80 MG TAB PO SCH (11:05)
[2024-05-30] MEDS: clonazePAM 1 MG TAB PO SCH (11:06)
[2024-05-30] MEDS: DULoxetine HCL 30 MG CAPSULE.DR PO SCH (11:12)
[2024-05-30 12:05] LABS: Glucose,Whole Blood 122 mg/dL (70-110)
--- NOTE | 2024-05-30 12:16 | P.PN ---
Subjective Progress Note Date: 05/30/24 63-year-old female seen this morning in consultation. The patient was seen initially in the emergency department, on May 25. She apparently came in with complaints of shortness of breath, and low saturations. The patient has been treated recently for bronchitis with steroids and antibiotics. This morning, a rapid response was called on this patient, and, the charge nurse called me, to tell me that the patient would benefit from Lasix, and BiPAP. That was done initially, but subsequent to that, another rapid response was called on this patient, and the patient needed to be transferred to the intensive care unit, for intubation and mechanical ventilation. Currently, she is on volume assist- control, rate 20, tidal volume 350, FiO2 100%, PEEP of 5. She is on a Cardizem drip at 10 mg an hour for atrial fibrillation, propofol at 60 mcg/kg/min, and she is receiving some fluid, i.e. saline, at 1 L, as a fluid bolus. Afterwards, she will be switched to lactated Ringer's at 100 cc an hour. She had a an arterial line placed, and a central line placed. We did a right radial arterial line, and a left subclavian triple-lumen catheter. She was intubated by the SUPPLY CHAIN VICE PRESIDENT. Current labs include a white count of 54.7, hemoglobin 8.7, hematocrit 29.7, and a platelet count of 605,000. Initial blood gases showed a pO2 of 146, pCO2 of 61, and pH is 7.24. The rate was increased from 28 to 24 breaths/min. In addition, the FiO2 was dropped down to 70%. Sodium 138, potassium 4.9, chlorides 102, CO2 28, BUN 18, creatinine 0.45. Glucose is 288. Calcium is 8.9. Lactic acid 1.3. The left chest reveals a pleural effusion, with possible loculations. An ultrasound was ordered. In addition, the patient had bronchoscopy, with airway examination, therapeutic lavage, BAL, brushings left lower lobe, and endobronchial and transbronchial biopsies left lower lobe. Progress note dated May 27, 2024. 63-year-old female seen in consultation yesterday. Please see the note above. The patient developed lopez respiratory failure, and was intubated, yesterday, May 26. She remains on mechanical ventilator. She is on volume assist- control, rate 24, tidal volume 350, FiO2 60%, to be reduced down to 50%, PEEP of 5. Blood gases show pO2 of 112, pCO2 44, pH is 7.37. The patient continues on propofol at 60 mcg/kg/min, norepinephrine at 7 mcg/min, fentanyl at 2 mcg/kg/h, LR at 100 cc an hour. The patient is on vancomycin, and we add cefepime. The patient had a left-sided thoracentesis today. 1.5 L of milky slightly green fluid was removed from the left pleural space. The patient's procalcitonin level is elevated 9.74. Current labs include a white count of 73.5, hemoglobin 6.6, hematocrit 22.2, platelet count 452,000. The patient will get 1 unit of PRBCs. In addition, sodium 139, potassium 4.8, chlorides 108, CO2 21, anion gap 10, BUN 21, creatinine 0.38. Calcium is 8.3. Magnesium is 1.9. Cultures are thus far negative. The postthoracentesis chest x-ray shows an improved left- sided pleural fluid collection, and a small to moderate size left-sided hydropneumothorax. Progress note dated May 28, 2024. 63-year-old female seen in consultation 2 days ago. The patient remains on mechanical ventilator. She is seen today in room 262. She is on volume assist- control, rate 24, tidal volume 350, FiO2 50%, PEEP of 5. Blood gases show pO2 119, pCO2 45, pH is 7.40. The FiO2 will be reduced at 40%. She is sedated with propofol at 65 mcg/kg/min, norepinephrine at 1.2 mcg/min, and fentanyl at 2 mcg/kg/h. She is getting lactated Ringer's at 100 cc an hour, and vital high- protein at 33 cc an hour. She continues on cefepime, and vancomycin. Current laboratory data includes a white count 48.1, hemoglobin 7.5, hematocrit 25.6, and platelet count 382,000. Sodium 140, potassium 4.4, chlorides 111, CO2 26, BUN 24, creatinine 0.42. Glucose is 215. Calcium 8.2. Cultures thus far are negative. That includes bronchoscopy results. Chest x-ray shows a relatively clear right lung. There is some haziness, on the left side, with a left-sided pleural effusion. She did undergo thoracentesis yesterday. On 05/29/2024, seen the patient for a follow-up. This morning, the patient remains intubated on mechanical ventilator. I reviewed the records and the patient came to us with a complicated loculated large left-sided pleural effusion which was drained and the fluid is an exudate with negative cultures. Subsequent chest x-ray from today still showing some loculated left-sided pleural effusion. The patient remains on a combination of antibiotics utilizing cefepime and vancomycin. This morning, the patient remains on propofol running at 60 mcg/kg/min and fentanyl at 2 mcg/kg/h. Patient remains on lactated Ringer at rate of 100 cc an hour. Norepinephrine drip has been discontinued approximately 24 hours ago. She is on assist-control mode of mechanical ventilation at rate of 24, tidal volume of 350, FiO2 of 40% with a PEEP of 5 and a blood gases showing a pH of 7.41 with a pCO2 of 46 and pO2 of 77. The white cell count is down to 31 and the hemoglobin is at 8 with a platelet count of 368. The procalcitonin level is downtrending from 9.7 down to 6.7. The rest of the electrolytes are stable with a BUN of 25 and a creatinine of 0.4 and a serum bicarb of 28. The patient is arousable while being off of sedation. Will check weaning parameters and assess her candidacy for further weaning. The patient is on vital high-protein at rate of 33 cc an hour. Today's evaluation of 05/30/2024, the patient is being seen for a follow-up. The patient was weaned off the mechanical ventilator and the patient was extubated to nasal cannula yesterday without any major difficulties and the patient is currently on 40s of oxygen nasal cannula. The follow-up chest x-ray still showing a persistent left-sided pleural effusion along with loculation. There i s also some increase in small right-sided pleural effusion. The microbial cultures from the pleural fluid came back positive for alpha hemolytic Streptococcus. Antibiotic adjustments will be done accordingly. Hemodynamically stable. No significant chest pain. No discomfort. The patient remains on bronchodilators. The patient remains on IV Solu-Medrol. Blood work from today shows improvement in the white cell count which is currently down to 24 with a hemoglobin of 8.3 and a platelet count of 373, BUN is 24 and a creatinine of 0.4 and a electrolytes are all within normal limits. Awake and alert and communicating and using the incentive spirometer. Objective - Vital Signs Vital signs: Vital Signs Temp 98.5 F 05/30/24 00:00 Pulse 92 05/30/24 08:16 Resp 13 05/30/24 07:00 BP 152/88 05/30/24 07:00 Pulse Ox 95 05/30/24 07:54 FiO2 40 05/29/24 16:00 Intake & Output 05/29/24 05/30/24 05/30/24 18:59 06:59 18:59 Intake Total 471.550 5153 110 Output Total 807 1620 100 Balance 185.021 -157 10 Weight 64.8 kg Intake: IV 677 1463 110 0.9 NaCl KVO 110 10 Cefepime 2 gm In Sodium 200 Chloride 0.9% 100 ml @ 25 mls/hr IVPB Q8H [facility] Rx#: [id number] Lactated Ringers 1,000 ml 200 1100 100 @ 100 mls/hr IV .Q10H [facility] Rx#:[id number] Vancomycin 1,000 mg In 250 250 Sodium Chloride 0.9% 250 ml @ 125 mls/hr IVPB Q12H [facility] Rx#:[id number] pressure bag 27 3 Intake, IV Titration 219.021 Amount Norepinephrine 4 mg In 0 Sodium Chloride 0.9% 250 ml @ 0.03 MCG/KG/MIN 6. 221 mls/hr IV .Q24H [facility] Rx#:[id number] Sodium Chloride 0.9% 80 119.021 ml @ 0.5 MCG/KG/HR 2.722 mls/hr IV .Q24H [facility] with fentaNYL (PF) 1,000 mcg Rx#:[id number] propofoL 1,000 mg In 100 Empty Bag 1 bag @ 15 MCG/ KG/MIN 4.899 mls/hr IV . [id number] [facility] Rx#:[id number] Tube Feeding 66 Other 30 Output: Urine 807 1420 100 Stool 200 ABP, PAP, CO, CI - Last Documented Arterial Blood Pressure 121/88 - Exam No acute distress, currently on 4 L of oxygen by nasal cannula Head exam was generally normal. There was no scleral icterus or corneal arcus. Mucous membranes were moist. HEENT examination is grossly unremarkable. Neck supple. Full range of motion. No adenopathy thyromegaly or neck vein distention. Cardiovascular examination reveals regular rhythm rate. S1-S2 normal. No S3 or S4. No discernible murmur noted. Heart sounds are distant. Lungs reveal bilateral coarse rhonchi. No expiratory wheezes. No crackles. Breath sounds equal. Diminished breath on the left compared to the right. No significant wheezes or rhonchi. Abdomen soft without bowel sounds. No masses or tenderness. Extremities are intact. No cyanosis clubbing or edema. Skin is without rash or lesion. Neurologically, the patient is awake and alert and the patient does not have any focal neurological deficit. Cranial nerves are essentially intact. - Labs CBC & Chem 7: 05/30/24 05:57 05/30/24 05:57 Labs: Abnormal Lab Results - Last 24 Hours (Table) 05/26/24 05/29/24 05/29/24 Range/Units 10:00 11:56 18:00 WBC (3.8-10.6) k/uL RBC (3.80-5.40) m/uL Hgb (11.4-16.0) gm/dL Hct (34.0-46.0) % MCV (80.0-100.0) fL MCHC (31.0-37.0) g/dL RDW (11.5-15.5) % Chloride (98-107) mmol/L BUN (7-17) mg/dL Creatinine (0.52-1.04) mg/dL Glucose (74-99) mg/dL POC Glucose (mg/dL) 135 H 167 H (70-110) mg/dL Calcium (8.4-10.2) mg/dL Fluid RBC 5610 H (0-2000) /uL 05/30/24 05/30/24 05/30/24 Range/Units 00:39 05:30 05:57 WBC (3.8-10.6) k/uL RBC (3.80-5.40) m/uL Hgb (11.4-16.0) gm/dL Hct (34.0-46.0) % MCV (80.0-100.0) fL MCHC (31.0-37.0) g/dL RDW (11.5-15.5) % Chloride 109 H (98-107) mmol/L BUN 24 H (7-17) mg/dL Creatinine 0.43 L (0.52-1.04) mg/dL Glucose 134 H (74-99) mg/dL POC Glucose (mg/dL) 162 H 142 H (70-110) mg/dL Calcium 8.3 L (8.4-10.2) mg/dL Fluid RBC (0-2000) /uL 05/30/24 Range/Units 05:57 WBC 24.5 H (3.8-10.6) k/uL RBC 2.73 L (3.80-5.40) m/uL Hgb 8.3 L (11.4-16.0) gm/dL Hct 28.1 L (34.0-46.0) % MCV 102.7 H (80.0-100.0) fL MCHC 29.5 L (31.0-37.0) g/dL RDW 16.7 H (11.5-15.5) % Chloride (98-107) mmol/L BUN (7-17) mg/dL Creatinine (0.52-1.04) mg/dL Glucose (74-99) mg/dL POC Glucose (mg/dL) (70-110) mg/dL Calcium (8.4-10.2) mg/dL Fluid RBC (0-2000) /uL Microbiology - Last 24 Hours (Table) 05/27/24 09:45 Gram Stain - Preliminary Pleural Fluid Body Fluid Culture - Preliminary Alpha Hemolytic Streptococcus 05/26/24 10:00 Acid Fast Bacilli Smear - Preliminary Bronchoalviolar Lavage - Left 05/26/24 10:00 Gram Stain - Final Bronchoalviolar Lavage - Left Bronchial Washings Culture - Final Assessment and Plan Plan: Acute hypoxic respiratory failure, requiring intubation, and mechanical ventilation, May 26, 2024. The patient was extubated on 05/29/2024 without any major difficulties and the patient is currently on 40s of oxygen by nasal cannula. Acute left lung pneumonia/empyema with a loculated left-sided pleural effusion. Pleural fluid was positive for alphahemolytic strep and patient has a likely streptococcal pneumonia with secondary empyema loculated left-sided pleural effusion representing a complicated parapneumonic effusion/empyema. The patient had also significant consolidation/atelectasis of the left lung, the pleural fluid cultures have been positive for hemolytic strep. The patient has persistent loculation. Will proceed with a CAT scan of the chest. S/P bronchoscopy, with BAL, brushings, biopsies, left lower lobe. The airways are patent and the patient's cultures are negative S/P left-sided thoracentesis, with 1.5 L of fluid removed, May 27, 2024. There is residual loculated left-sided pleural effusion on today's chest x-ray. Severe leukocytosis, improving History of ongoing tobacco use with nicotine addiction. History of hypertension. History of hyperlipidemia. History of fibromyalgia. History of migraine cephalgia. History of ulcerative colitis. History of anxiety/depression. Paroxysmal atrial fibrillation current rhythm is sinus and the patient is off the Cardizem drip. Plan Extubated to nasal cannula currently on 4 L Will need a follow-up CAT scan of the chest to reevaluate the loculated left- sided pleural effusion and further drainage may be necessary White cell count is improving and will continue monitor the white cell count Monitor the procalcitonin level which is downtrending continue IV antibiotics and switch this patient to 2 g of Rocephin every 24 hours Hemodynamically stable on no pressors Condition remains critical. Evaluation was done more than 30 minutes. Continue to follow. Time with Patient: Greater than 30
[2024-05-30] MEDS: INSULIN ASPART (NovoLOG) 100 UNIT/ML VIAL SQ SCH (13:06)
--- NOTE | 2024-05-30 14:59 | CT ---
EXAMINATION TYPE: CT chest wo con CT DLP: 249 mGycm, Automated exposure control for dose reduction was used. DATE OF EXAM: 05/30/2024 2:44 PM COMPARISON: 05/25/2024. CLINICAL INDICATION:Female, 63 years old with history of PNA; . TECHNIQUE: Multiple axial images were obtained through the chest. Sagittal and coronal reformats were created for review. Contrast used: mL of (None if empty) Oral contrast used: (None if empty) FINDINGS: LUNGS/ PLEURA: Bilateral pleural effusions left greater than right loculations along the left. Scatte red groundglass opacities. Consolidation changes in the left lung base. Trace left pneumothorax. No r ight pneumothorax. AIRWAY: Patent and unremarkable. HEART: No heart is mildly enlarged for size. MEDIASTINUM: No gross evidence of adenopathy. Small hiatal hernia. VASCULATURE: No aortic aneurysm. A central venous catheter with tip terminating in the superior vena cava. MUSCULOSKELETAL: No acute osseous abnormalities SOFT TISSUES/LYMPH NODES: Unremarkable. LOWER NECK: No significant findings. UPPER ABDOMEN: No significant findings. IMPRESSION: 1. Trace left pneumothorax. Likely from recent intervention. 2. Left lower lung consolidation with scattered groundglass opacities concerning for pneumonia. 3. Loculated left pleural effusion has decreased in size from prior exam 4. Trace right and small left pleural effusions.
[2024-05-30 16:49] LABS: Glucose,Whole Blood 163 mg/dL (70-110)
[2024-05-30] MEDS: HYDROmorphone 0.5 MG/0.5 ML SYRINGE IVP PRN (20:06)
[2024-05-30 20:13] LABS: Glucose,Whole Blood 194 mg/dL (70-110)
[2024-05-31 06:11] LABS: Glucose,Whole Blood 147 mg/dL (70-110)
[2024-05-31] MEDS: CYCLOBENZAPRINE 10 MG TAB PO PRN (09:46)
[2024-05-31] MEDS: ATORVASTATIN 40 MG TAB PO SCH (09:47)
[2024-05-31] MEDS: DIPHENOX-ATROP 2.5-0.025 MG 1 EACH TAB PO PRN (09:50)
[2024-05-31 11:42] LABS: Glucose,Whole Blood 131 mg/dL (70-110)
[2024-05-31 11:44] LABS: African American GFR (CKD) >90 (>60 ml/min/1.73 sqM); Non-African American GFR(CKD) >90 (>60 ml/min/1.73 sqM)
--- NOTE | 2024-05-31 13:40 | P.PN ---
Subjective Progress Note Date: 05/31/24 HISTORY OF PRESENTING ILLNESS This is a 63-year-old with past medical history significant for hypertension, hyperlipidemia, ulcerative colitis, fibromyalgia, multiple sclerosis, anxiety, tobacco abuse, syncopal episodes in the past. She does not follow with a chain offbearer. She is currently intubated and sedated and history is supplied by chart. Patient has been having worsening shortness breath over last few days. She has history of chronic bronchitis and chronic respiratory failure. Initially was seen in the ER however on floor she had respiratory distress and 18 was called and initially tried IV Lasix however could not tolerate and became tachycardic into And eventually intubated. D-dimer was elevated at 5.5 and therefore CTA was performed which showed no PE however large left pleural ef fusion and loculated left lung collapse and enlarged mediastinal lymphadenectomy concerning for malignancy and therefore oncology was consulted. Cardiology was consult that secondary to A. fib with RVR. Initial EKG showing sinus tachycardia with heart rate 118 bpm however repeat EKG at 23:26 showed A. fib with RVR with heart rate [address] or T wave abnormalities. No prior history of A. fib. She was placed on Cardizem drip with conversion to normal sinus rhythm and heart rates controlled after patient sedated on ventilator. She has been placed on low-dose norepinephrine. 05/27 Patient is seen and examined and remains in the intensive care unit. Patient remains intubated on mechanical ventilation with FiO2 of 60 decreased this morning to 50 and PEEP of 5. Pulse ox is 98%. Blood pressure 115/73, heart rate is in the 80s. Patient has been afebrile. Telemetry is sinus rhythm. Repeat blood work reveals WBC 73.5, hemoglobin 6.6, platelet count 452. Sodium 139, potassium 4.8, CO2 21, BUN 21 creatinine 0.38. Blood cultures are showing no growth. Patient is scheduled for transfusion 1 unit of packed RBCs today. Repeat chest x-ray reveals continued worsening left lung opacity likely reflecting worsening large left-sided pleural effusion and associated left lung atelectasis and/or acute infiltrate. Echo is pending. Cardizem is off. Patient underwent left thoracentesis this morning with removal of 1 and half liters of fluid. 05/28 Patient is seen and examined in the intensive care unit. Patient is intubated on mechanical ventilation with FiO2 of 40 and PEEP of 5. Pulse ox is 96%, blood pressure 118/69, heart rate is in the 80s. Telemetry is sinus rhythm. Patient has been afebrile. Repeat blood work reveals WBC 48, hemoglobin 7.5. Sodium 140, potassium 4.4, BUN 24 creatinine 0.42. Patient was transfused 1 unit packed RBCs yesterday. Echocardiogram has been obtained and report is pending. Repeat chest x-ray reveals persistent moderate left pleural effusion with associated atelectasis. Patient is currently on propofol and norepinephrine. 05/29/2024 Patient is seen and examined at bedside. Hemoglobin 8, WBC 31.4, creatinine 0.4, echo report is awaited Patient continues to be on vent support. 05/31 Patient has been transferred out of the intensive care unit. She is been on sinus rhythm. Eliquis has been on hold in case patient needs thoracentesis. We will readdress this tomorrow. Blood pressure 145/84, heart rate 106, pulse ox 90% on 4 L nasal cannula. Telemetry sinus rhythm. Creatinine 0.46. Patient has been maintained on IV Rocephin, nebulizers and IV Solu-Medrol. CT of the chest reveals trace left pneumothorax likely from recent intervention. Left lower lobe consolidation and scattered groundglass opacities concerning for pneumonia. Loculated left pleural effusion decreased in size. Trace right and small left pleural effusions. Echocardiogram reveals EF 55 to 60%, mild mitral and tricuspid regurgitation and mild pulmonary hypertension. PHYSICAL EXAMINATION Vital signs reviewed. CONSTITUTIONAL: No apparent distress, ill appearing on vent HEENT: Head is normocephalic. Pupils are equal, round. Sclerae anicteric. Mucous membranes of the mouth are moist. No JVD. No carotid bruit. CHEST EXAMINATION: Decreased breath sounds on left HEART EXAMINATION: Regular rate and rhythm. S1, S2 heard. No murmurs, gallops or rub. ABDOMEN: Soft, nontender. Positive bowel sounds. EXTREMITIES: 2+ peripheral pulses, no lower extremity edema and no calf tenderness. NEUROLOGIC EXAMINATION: Patient is sedated ASSESSMENT Paroxysmal atrial fibrillation, newly diagnosed, currently in sinus rhythm Acute on chronic respiratory failure with left lung collapse, left lung pleural effusion and lymphadenopathy, s/p left thoracentesis 05/27 History of COPD Hypertension Hyperlipidemia Fibromyalgia Hypotension may be related to sedation Acute anemia scheduled for transfusion 1 unit packed RBCs PLAN Patient's main presentation of shortness breath related to left lung opacification and pleural effusion. Continue patient on a atorvastatin 40 mg daily, Lopressor 25 mg twice daily Reevaluate patient to start Eliquis tomorrow CHADSVASC score appears to be 2 for hypertension and female Nurse practitioner note has been reviewed, I agree with documented findings and plan of care. Patient was seen and examined. Objective - Vital Signs Vital signs: Vital Signs Temp 97.9 F 05/31/24 04:00 Pulse 78 05/31/24 08:33 Resp 18 05/31/24 04:00 BP 151/90 05/31/24 04:00 Pulse Ox 94 L 05/31/24 08:05 FiO2 40 05/29/24 16:00 Intake & Output 05/30/24 05/31/24 05/31/24 18:59 06:59 18:59 Intake Total 340 20 0 Output Total 400 Balance -60 20 0 Weight 64.8 kg 61.3 kg Intake: IV 340 20 0.9 NaCl KVO 40 Invasive Line 6 20 Lactated Ringers 1,000 ml 300 @ 100 mls/hr IV .Q10H [facility] Rx#:[id number] Oral 0 Output: Urine 400 Other: # Voids 2 ABP, PAP, CO, CI - Last Documented Arterial Blood Pressure 121/88 - Labs CBC & Chem 7: 05/30/24 05:57 05/31/24 10:55 Labs: Abnormal Lab Results - Last 24 Hours (Table) 05/30/24 05/30/24 05/30/24 Range/Units 12:03 16:47 20:12 POC Glucose (mg/dL) 122 H 163 H 194 H (70-110) mg/dL 05/31/24 Range/Units 06:09 POC Glucose (mg/dL) 147 H (70-110) mg/dL Microbiology - Last 24 Hours (Table) 05/25/24 15:45 Blood Culture - Final Blood 05/25/24 16:00 Blood Culture - Final Blood 05/27/24 09:45 Gram Stain - Final Pleural Fluid Body Fluid Culture - Final Streptococcus intermedius 05/27/24 09:45 Acid Fast Bacilli Smear - Preliminary Pleural Fluid
--- NOTE | 2024-05-31 15:42 | P.PN ---
Subjective Progress Note Date: 05/31/24 Principal diagnosis: Pl effusion, lung mass In f/u pt is still having SOB, not sure if she feels much better. No fevers, N,V, acute changes in bowel or bladder habits. Objective - Vital Signs Vital signs: Vital Signs Temp 98.8 F 05/31/24 08:00 Pulse 106 H 05/31/24 13:55 Resp 18 05/31/24 13:55 BP 153/84 05/31/24 12:00 Pulse Ox 95 05/31/24 12:00 FiO2 40 05/29/24 16:00 Intake & Output 05/30/24 05/31/24 05/31/24 18:59 06:59 18:59 Intake Total 340 20 20 Output Total 400 Balance -60 20 20 Weight 64.8 kg 61.3 kg Intake: IV 340 20 20 0.9 NaCl KVO 40 Invasive Line 6 20 20 Lactated Ringers 1,000 ml 300 @ 100 mls/hr IV .Q10H [facility] Rx#:[id number] Oral 0 Output: Urine 400 Other: # Voids 2 ABP, PAP, CO, CI - Last Documented Arterial Blood Pressure 121/88 - Constitutional General appearance: Present: average body habitus, cooperative, mild distress - EENT Eyes: Present: anicteric sclerae, EOMI ENT: Present: hearing grossly normal - Respiratory Respiratory: bilateral: diminished - Peripheral edema leg Peripheral Edema: bilateral: None - Neurologic Neurologic: Present: CNII-XII intact - Musculoskeletal Musculoskeletal: Present: strength equal bilaterally - Psychiatric Psychiatric: Present: A&O x's 3, appropriate affect, intact judgment & insight - Labs CBC & Chem 7: 05/30/24 05:57 05/31/24 10:55 Labs: Abnormal Lab Results - Last 24 Hours (Table) 05/30/24 05/30/24 05/31/24 Range/Units 16:47 20:12 06:09 Creatinine (0.52-1.04) mg/dL POC Glucose (mg/dL) 163 H 194 H 147 H (70-110) mg/dL 05/31/24 05/31/24 Range/Units 10:55 11:41 Creatinine 0.46 L (0.52-1.04) mg/dL POC Glucose (mg/dL) 131 H (70-110) mg/dL Microbiology - Last 24 Hours (Table) 05/25/24 15:45 Blood Culture - Final Blood 05/25/24 16:00 Blood Culture - Final Blood 05/27/24 09:45 Gram Stain - Final Pleural Fluid Body Fluid Culture - Final Streptococcus intermedius 05/27/24 09:45 Acid Fast Bacilli Smear - Preliminary Pleural Fluid Assessment and Plan (1) Mass of lung Current Visit: Yes Status: Acute Priority: High Code(s): R91.8 - OTHER NONSPECIFIC ABNORMAL FINDING OF LUNG FIELD SNOMED Code(s): 420071026 (2) Leukocytosis Current Visit: Yes Status: Acute Priority: Medium Code(s): D72.829 - ELEVATED WHITE BLOOD CELL COUNT, UNSPECIFIED SNOMED Code(s): 929454285 (3) Macrocytic anemia Current Visit: Yes Status: Chronic Priority: Medium Code(s): D53.9 - NUTRITIONAL ANEMIA, UNSPECIFIED SNOMED Code(s): 29314277 Plan: Pleural effusion, lung mass -Abnormal findings on imaging on admit. Large loculated pleural effusion and soft tissue densities throughout the pleura with evidence of mass effect including depression of the left hemidiaphragm and mild mass effect on cardiomediastinal structures. Abnormal appearance of the spleen which abuts the undersurface of the left hemidiaphragm. Small to moderate amount of pericardial fluid. Additional fluid and/or soft tissue seen to the right of the distal esophagus multiple mildly to moderately enlarged mediastinal nodes, subcarinal and paratracheal as well as left prevascular. Left lung is almost fully collapsed with some hazy opacities in the aerated portions, concerning for pneumonia -Pt has been on abx, slight improvements -Bronchoscopy with Dr. Klein, brushings of the left lower lobe, BAL and endobronchial and transbronchial biopsies of the left lower lobe were neg for malignancy. Pending cytology on pleural fluid. Results reviewed with patient. Discussed that there are still concerns because of the appearance on imaging. If cytology of the pleural fluid is negative, would recommend another biopsy. Patient verbalized understanding. Macrocytic anemia, leukocytosis -Anemia has been noted since 2019, macrocytosis since 2015 trending in this medical record. -Work up consistent with anemia of inflammation-normal saturation, ferritin 1549, elevated inflammatory markers. No B12 or folate deficiency. -Anemia likely multifactorial with anemia of inflammation, superimposed by acute infection. -Hgb has been stable after 1 unit PRBCs for a Hgb 6.6. Hgb 8.3. -Continue to monitor CBC, please transfuse for hgb less than 7 -On admission CBC showed leukocytosis with WBC 40.2, with predominantly neutrophilia. Today WBC 24.5, likely leukemoid reaction Doctor attests: I performed a history and physical examination of this patient, developed impression and plan of care. Discussed with dictator. I agree with dictators note, documented as a scribe.
[2024-05-31 16:35] LABS: Glucose,Whole Blood 148 mg/dL (70-110)
--- NOTE | 2024-05-31 18:04 | P.PN ---
Subjective Progress Note Date: 05/31/24 63-year-old female seen this morning in consultation. The patient was seen initially in the emergency department, on May 25. She apparently came in with complaints of shortness of breath, and low saturations. The patient has been treated recently for bronchitis with steroids and antibiotics. This morning, a rapid response was called on this patient, and, the charge nurse called me, to tell me that the patient would benefit from Lasix, and BiPAP. That was done initially, but subsequent to that, another rapid response was called on this patient, and the patient needed to be transferred to the intensive care unit, for intubation and mechanical ventilation. Currently, she is on volume assist- control, rate 20, tidal volume 350, FiO2 100%, PEEP of 5. She is on a Cardizem drip at 10 mg an hour for atrial fibrillation, propofol at 60 mcg/kg/min, and she is receiving some fluid, i.e. saline, at 1 L, as a fluid bolus. Afterwards, she will be switched to lactated Ringer's at 100 cc an hour. She had a an arterial line placed, and a central line placed. We did a right radial arterial line, and a left subclavian triple-lumen catheter. She was intubated by the HELPER TEACHER. Current labs include a white count of 54.7, hemoglobin 8.7, hematocrit 29.7, and a platelet count of 605,000. Initial blood gases showed a pO2 of 146, pCO2 of 61, and pH is 7.24. The rate was increased from 28 to 24 breaths/min. In addition, the FiO2 was dropped down to 70%. Sodium 138, potassium 4.9, chlorides 102, CO2 28, BUN 18, creatinine 0.45. Glucose is 288. Calcium is 8.9. Lactic acid 1.3. The left chest reveals a pleural effusion, with possible loculations. An ultrasound was ordered. In addition, the patient had bronchoscopy, with airway examination, therapeutic lavage, BAL, brushings left lower lobe, and endobronchial and transbronchial biopsies left lower lobe. Progress note dated May 27, 2024. 63-year-old female seen in consultation yesterday. Please see the note above. The patient developed lopez respiratory failure, and was intubated, yesterday, May 26. She remains on mechanical ventilator. She is on volume assist- control, rate 24, tidal volume 350, FiO2 60%, to be reduced down to 50%, PEEP of 5. Blood gases show pO2 of 112, pCO2 44, pH is 7.37. The patient continues on propofol at 60 mcg/kg/min, norepinephrine at 7 mcg/min, fentanyl at 2 mcg/kg/h, LR at 100 cc an hour. The patient is on vancomycin, and we add cefepime. The patient had a left-sided thoracentesis today. 1.5 L of milky slightly green fluid was removed from the left pleural space. The patient's procalcitonin level is elevated 9.74. Current labs include a white count of 73.5, hemoglobin 6.6, hematocrit 22.2, platelet count 452,000. The patient will get 1 unit of PRBCs. In addition, sodium 139, potassium 4.8, chlorides 108, CO2 21, anion gap 10, BUN 21, creatinine 0.38. Calcium is 8.3. Magnesium is 1.9. Cultures are thus far negative. The postthoracentesis chest x-ray shows an improved left- sided pleural fluid collection, and a small to moderate size left-sided hydropneumothorax. Progress note dated May 28, 2024. 63-year-old female seen in consultation 2 days ago. The patient remains on mechanical ventilator. She is seen today in room 262. She is on volume assist- control, rate 24, tidal volume 350, FiO2 50%, PEEP of 5. Blood gases show pO2 119, pCO2 45, pH is 7.40. The FiO2 will be reduced at 40%. She is sedated with propofol at 65 mcg/kg/min, norepinephrine at 1.2 mcg/min, and fentanyl at 2 mcg/kg/h. She is getting lactated Ringer's at 100 cc an hour, and vital high- protein at 33 cc an hour. She continues on cefepime, and vancomycin. Current laboratory data includes a white count 48.1, hemoglobin 7.5, hematocrit 25.6, and platelet count 382,000. Sodium 140, potassium 4.4, chlorides 111, CO2 26, BUN 24, creatinine 0.42. Glucose is 215. Calcium 8.2. Cultures thus far are negative. That includes bronchoscopy results. Chest x-ray shows a relatively clear right lung. There is some haziness, on the left side, with a left-sided pleural effusion. She did undergo thoracentesis yesterday. On 05/29/2024, seen the patient for a follow-up. This morning, the patient remains intubated on mechanical ventilator. I reviewed the records and the patient came to us with a complicated loculated large left-sided pleural effusion which was drained and the fluid is an exudate with negative cultures. Subsequent chest x-ray from today still showing some loculated left-sided pleural effusion. The patient remains on a combination of antibiotics utilizing cefepime and vancomycin. This morning, the patient remains on propofol running at 60 mcg/kg/min and fentanyl at 2 mcg/kg/h. Patient remains on lactated Ringer at rate of 100 cc an hour. Norepinephrine drip has been discontinued approximately 24 hours ago. She is on assist-control mode of mechanical ventilation at rate of 24, tidal volume of 350, FiO2 of 40% with a PEEP of 5 and a blood gases showing a pH of 7.41 with a pCO2 of 46 and pO2 of 77. The white cell count is down to 31 and the hemoglobin is at 8 with a platelet count of 368. The procalcitonin level is downtrending from 9.7 down to 6.7. The rest of the electrolytes are stable with a BUN of 25 and a creatinine of 0.4 and a serum bicarb of 28. The patient is arousable while being off of sedation. Will check weaning parameters and assess her candidacy for further weaning. The patient is on vital high-protein at rate of 33 cc an hour. Today's evaluation of 05/30/2024, the patient is being seen for a follow-up. The patient was weaned off the mechanical ventilator and the patient was extubated to nasal cannula yesterday without any major difficulties and the patient is currently on 40s of oxygen nasal cannula. The follow-up chest x-ray still showing a persistent left-sided pleural effusion along with loculation. There i s also some increase in small right-sided pleural effusion. The microbial cultures from the pleural fluid came back positive for alpha hemolytic Streptococcus. Antibiotic adjustments will be done accordingly. Hemodynamically stable. No significant chest pain. No discomfort. The patient remains on bronchodilators. The patient remains on IV Solu-Medrol. Blood work from today shows improvement in the white cell count which is currently down to 24 with a hemoglobin of 8.3 and a platelet count of 373, BUN is 24 and a creatinine of 0.4 and a electrolytes are all within normal limits. Awake and alert and communicating and using the incentive spirometer. 05/31/2024, the patient is being seen for a follow-up. The patient is still recovering from an extensive left lung pneumonia that was complicated by empyema and this is likely secondary to streptococcal pneumonia. Her white cell count is improving. Her respiratory status is stable. Hemodynamically stable. The patient is currently on 4 L of oxygen by nasal cannula with a pulse ox of 95%. Meanwhile, a follow-up CAT scan of the chest was done and the patient was found to have a loculated left pleural effusion which has diminished in size. There is still a loculated pocket in the posterior left lung base. Trace left-sided pneumothorax. There is also an ongoing consolidation and areas of scattered groundglass opacities correlating with pneumonia. Small right-sided pleural effusion is also seen. The patient's blood work from today shows a white cell count of 24 with a hemoglobin 8.3 and a platelet count of 373. Electrolytes are all stable and within normal limits. Renal function is also stable. The patient remains on IV antibiotics. The patient remains on IV Rocephin 2 g every 24 hours. Rest of the medications are essentially unchanged. Remains on IV Solu-Medrol 60 mg every 6 hours. Objective - Vital Signs Vital signs: Vital Signs Temp 98.8 F 05/31/24 08:00 Pulse 106 H 05/31/24 13:55 Resp 18 05/31/24 13:55 BP 153/84 05/31/24 12:00 Pulse Ox 95 05/31/24 12:00 FiO2 40 05/29/24 16:00 Intake & Output 05/30/24 05/31/24 05/31/24 18:59 06:59 18:59 Intake Total 340 20 20 Output Total 400 Balance -60 20 20 Weight 64.8 kg 61.3 kg Intake: IV 340 20 20 0.9 NaCl KVO 40 Invasive Line 6 20 20 Lactated Ringers 1,000 ml 300 @ 100 mls/hr IV .Q10H [facility] Rx#:[id number] Oral 0 Output: Urine 400 Other: # Voids 2 ABP, PAP, CO, CI - Last Documented Arterial Blood Pressure 121/88 - Exam No acute distress, currently on 4 L of oxygen by nasal cannula Head exam was generally normal. There was no scleral icterus or corneal arcus. Mucous membranes were moist. HEENT examination is grossly unremarkable. Neck supple. Full range of motion. No adenopathy thyromegaly or neck vein distention. Cardiovascular examination reveals regular rhythm rate. S1-S2 normal. No S3 or S4. No discernible murmur noted. Heart sounds are distant. Lungs reveal bilateral coarse rhonchi. No expiratory wheezes. No crackles. Breath sounds equal. Diminished breath on the left compared to the right. No significant wheezes or rhonchi. Abdomen soft without bowel sounds. No masses or tenderness. Extremities are intact. No cyanosis clubbing or edema. Skin is without rash or lesion. Neurologically, the patient is awake and alert and the patient does not have any focal neurological deficit. Cranial nerves are essentially intact. - Labs CBC & Chem 7: 05/30/24 05:57 05/31/24 10:55 Labs: Abnormal Lab Results - Last 24 Hours (Table) 05/30/24 05/30/24 05/31/24 Range/Units 16:47 20:12 06:09 Creatinine (0.52-1.04) mg/dL POC Glucose (mg/dL) 163 H 194 H 147 H (70-110) mg/dL 05/31/24 05/31/24 Range/Units 10:55 11:41 Creatinine 0.46 L (0.52-1.04) mg/dL POC Glucose (mg/dL) 131 H (70-110) mg/dL Microbiology - Last 24 Hours (Table) 05/25/24 15:45 Blood Culture - Final Blood 05/25/24 16:00 Blood Culture - Final Blood 05/27/24 09:45 Gram Stain - Final Pleural Fluid Body Fluid Culture - Final Streptococcus intermedius 05/27/24 09:45 Acid Fast Bacilli Smear - Preliminary Pleural Fluid Assessment and Plan Plan: Acute hypoxic respiratory failure, requiring intubation, and mechanical ventilation, May 26, 2024. The patient was extubated on 05/29/2024 without any major difficulties and the patient is currently on 4 L of O2 nasal cannula. Acute left lung pneumonia/empyema with a loculated left-sided pleural effusion. Pleural fluid was positive for alphahemolytic strep and patient has a likely streptococcal pneumonia with secondary empyema. The patient has residual pocket of a empyema in the left lung base. Will consult interventional radiology for the pigtail catheter insertion. Overall findings on the CAT scan of the chest has improved. Residual consolidation of the left lung base. loculated left-sided pleural effusion representing a complicated parapneumonic effusion/empyema. The patient had also significant consolidation/atelectasis of the left lung, the pleural fluid cultures have been positive for hemolytic strep. The patient has persistent loculation. CAT scan of the chest was reviewed and interventional radiology was consulted. S/P bronchoscopy, with BAL, brushings, biopsies, left lower lobe. The airways are patent and the patient's cultures are negative S/P left-sided thoracentesis, with 1.5 L of fluid removed, May 27, 2024. There is residual loculated left-sided pleural effusion on today's chest x-ray. Severe leukocytosis, improving History of ongoing tobacco use with nicotine addiction. History of hypertension. History of hyperlipidemia. History of fibromyalgia. History of migraine cephalgia. History of ulcerative colitis. History of anxiety/depression. Paroxysmal atrial fibrillation current rhythm is sinus and the patient is off the Cardizem drip. Plan Extubated to nasal cannula currently on 4 L Consult interventional radiology for pigtail catheter insertion/possible drainage of the loculated empyema in the left lung base. White cell count is improving and will continue monitor the white cell count Monitor the procalcitonin level which is downtrending continue IV antibiotics and switch this patient to 2 g of Rocephin every 24 hours Wean down the steroids to 40 mg of IV centimeters every 12 hours. Hemodynamically stable on no pressors Condition is stable and will continue to follow.
[2024-05-31 20:00] LABS: Glucose,Whole Blood 150 mg/dL (70-110)
[2024-05-31] MEDS: methylPREDNISolone SOD SUCCI 40 MG/ML 1 ML VIAL IV SCH (21:51)
--- NOTE | 2024-05-31 22:01 | P.PN ---
Subjective This is a pleasant 63 years old female with past medical history of multiple medical problems including hypertension, hyperlipidemia, degenerative disc disease, fibromyalgia, multiple sclerosis, anxiety and depression. Patient presents because of worsening dyspnea for 2 days. Patient has a known case of bronchitis which is chronic and there is a 4 reported at home about 3 days prior to arrival to the hospital. Patient currently is in severe respiratory distress and cannot provide information, pumper gager A-team was called for worsening dyspnea. Patient oxygen requirement went up to 6 L/min and was getting worse so one-time dose of IV Lasix provided and she was placed on BiPAP, she could tolerated only for 10 minutes and then she started becoming tachycardic and tachypneic with a breathing rate between 40s to 50s. She was hypoxic diaphoretic, sweating and pale. Another A-team was called and patient was moved to the ICU where she got emergent intubated. Staff tried to call the son and left a message I called the son myself Mr. Jefferson at [phone] and left a message to call back. Information was obtained from staff and medical record. Patient was afebrile, on admission She has significant worsening leukocytosis up to 40,000, hemoglobin dropped to 8.5. Platelet count were up to 561 . Liver enzymes mildly elevated. D-dimer was elevated 5.5 and CTA of the chest was obtained showing significant abnormalities : No pulmonary embolism, large left pleural effusion, loculated with complete left lung collapse with possible splenic involvement and enlarged mediastinal lymphadenopathy findings suspicious for malignancy 05/27/2024 Patient got extubated yesterday Patient today was still drowsy lethargic somewhat confused and very weak. She has large pleural effusion and she underwent thoracocentesis today with 1.5 of pleural fluid aspirated and sent for studies. Her WBC jumped up to 73 K and hemoglobin down to 6.6. As such her IV vancomycin continued, IV cefepime added and patient received 1 unit of blood transfusion today Patient also kept on IV Solu-Medrol and Ringer lactate at 100 mL/h ProCalcitonin is elevated 6.7%. 05/28/2024 Patient remains in the ICU, it looks like she was intubated the night before She remains on IV Solu-Medrol and broad-spectrum antibiotic with IV vancomycin and cefepime. No IV fluids running. No anticoagulation because of the bleeding. Hemoglobin improved 6.6 up to 7.5 Leukocytosis improving 73 down to 48 05/29/24 Patient remains in the ICU intubated and sedated, She is still getting broad-spectrum antibiotic with IV vancomycin and cefepime She remains on IV Solu-Medrol Chest x-ray showing increased haziness on the left side lung and both basal areas more on the left side. 05/31/2024 Patient breathing is better today, she talks freely Has frequent bowel movement not sure if his diarrhea about 3 to 4/day However her main problem is the breathing and the pneumonia looks better but it is complicated empyema Interventional radiologist has been consulted for possible pigtail tube insertion. Objective - Vital Signs Vital signs: Vital Signs Temp 98.8 F 05/31/24 08:00 Pulse 78 05/31/24 08:33 Resp 18 05/31/24 08:00 BP 145/84 05/31/24 08:00 Pulse Ox 94 L 05/31/24 08:05 FiO2 40 05/29/24 16:00 Intake & Output 05/30/24 05/31/24 05/31/24 18:59 06:59 18:59 Intake Total 340 20 10 Output Total 400 Balance -60 20 10 Weight 64.8 kg 61.3 kg Intake: IV 340 20 10 0.9 NaCl KVO 40 Invasive Line 6 20 10 Lactated Ringers 1,000 ml 300 @ 100 mls/hr IV .Q10H [facility] Rx#:[id number] Oral 0 Output: Urine 400 Other: # Voids 2 ABP, PAP, CO, CI - Last Documented Arterial Blood Pressure 121/88 - Exam -GENERAL: The patient is awake but very weak and lethargic HEENT: Pupils are round and equally reacting to light. EOMI. No scleral icterus. No conjunctival pallor. Normocephalic, atraumatic. No pharyngeal erythema. No thyromegaly. CARDIOVASCULAR: S1 and S2 present. No murmurs, rubs, or gallops. PULMONARY: Chest is clear to auscultation, no wheezing , no crackles. ABDOMEN: Soft, nontender, nondistended, normoactive bowel sounds. No palpable organomegaly. MUSCULOSKELETAL: No joint swelling or deformity. EXTREMITIES: No cyanosis, clubbing, or pedal edema. NEUROLOGICAL: Gross neurological examination did not reveal any focal deficits. SKIN: No rashes. no petechiae. - Labs CBC & Chem 7: 05/30/24 05:57 05/31/24 10:55 Labs: Abnormal Lab Results - Last 24 Hours (Table) 05/30/24 05/30/24 05/31/24 Range/Units 16:47 20:12 06:09 Creatinine (0.52-1.04) mg/dL POC Glucose (mg/dL) 163 H 194 H 147 H (70-110) mg/dL 05/31/24 05/31/24 Range/Units 10:55 11:41 Creatinine 0.46 L (0.52-1.04) mg/dL POC Glucose (mg/dL) 131 H (70-110) mg/dL Microbiology - Last 24 Hours (Table) 05/25/24 15:45 Blood Culture - Final Blood 05/25/24 16:00 Blood Culture - Final Blood 05/27/24 09:45 Gram Stain - Final Pleural Fluid Body Fluid Culture - Final Streptococcus intermedius 05/27/24 09:45 Acid Fast Bacilli Smear - Preliminary Pleural Fluid Assessment and Plan Assessment: Large loculated left pleural effusion with associated complete collapse of the left lung with mediastinal lymphadenopathy suspicious for malignancy is high. Also there is involvement of the spleen through rate controlled but no anticoagulation diaphragm. Status post thoracocentesis on 05/27 with 1.5 L r emoved. S/P bronchoscopy, with BAL, brushings, biopsies, left lower lobe. Severe acute hypoxic respiratory failure, present on admission. Requiring intubation and mechanical ventilation. Acute COPD exacerbation Severe leukocytosis with findings above pneumonia is highly suspected. worsening anemia requiring 1 unit of blood transfusion on 05/27 New onset A-fib and RVR, currently rate controlled but no anticoagulation for severe anemia Hypertension Hyperlipidemia Degenerative disc disease Fibromyalgia Multiple sclerosis Anxiety and depression Plan: Patient transferred to the general medical floor Follow-up respiratory culture S/p thoracocentesis and follow-up pleural fluid show septic workup pneumonia infection Remains on IV Solu-Medrol Continue with broad-spectrum antibiotics with vancomycin and cefepime Follow-up blood culture Cardiology on the case for A-fib RVR but no anticoagulation for anemia Pulmonary, cardiology and hematology/oncology consult Labs and medication were reviewed.. Continue same treatment. Continue with symptomatic treatment. Resume home medication. Monitor labs and vitals. DVT and GI prophylaxis. Further recommendations as per clinical course of the patient DVT prophylaxis:no Subcutaneous heparin GI Prophylaxis: Pepcid Prognosis is guarded
[2024-06-01 05:45] LABS: Glucose,Whole Blood 85 mg/dL (70-110)
[2024-06-01 09:30] LABS: African American GFR (CKD) >90 (>60 ml/min/1.73 sqM); Non-African American GFR(CKD) >90 (>60 ml/min/1.73 sqM)
--- NOTE | 2024-06-01 09:34 | P.PN ---
Subjective This is a pleasant 63 years old female with past medical history of multiple medical problems including hypertension, hyperlipidemia, degenerative disc disease, fibromyalgia, multiple sclerosis, anxiety and depression. Patient presents because of worsening dyspnea for 2 days. Patient has a known case of bronchitis which is chronic and there is a 4 reported at home about 3 days prior to arrival to the hospital. Patient currently is in severe respiratory distress and cannot provide information, fitness teacher A-team was called for worsening dyspnea. Patient oxygen requirement went up to 6 L/min and was getting worse so one-time dose of IV Lasix provided and she was placed on BiPAP, she could tolerated only for 10 minutes and then she started becoming tachycardic and tachypneic with a breathing rate between 40s to 50s. She was hypoxic diaphoretic, sweating and pale. Another A-team was called and patient was moved to the ICU where she got emergent intubated. Staff tried to call the son and left a message I called the son myself Mr. Jefferson at [phone] and left a message to call back. Information was obtained from staff and medical record. Patient was afebrile, on admission She has significant worsening leukocytosis up to 40,000, hemoglobin dropped to 8.5. Platelet count were up to 561 . Liver enzymes mildly elevated. D-dimer was elevated 5.5 and CTA of the chest was obtained showing significant abnormalities : No pulmonary embolism, large left pleural effusion, loculated with complete left lung collapse with possible splenic involvement and enlarged mediastinal lymphadenopathy findings suspicious for malignancy 05/27/2024 Patient got extubated yesterday Patient today was still drowsy lethargic somewhat confused and very weak. She has large pleural effusion and she underwent thoracocentesis today with 1.5 of pleural fluid aspirated and sent for studies. Her WBC jumped up to 73 K and hemoglobin down to 6.6. As such her IV vancomycin continued, IV cefepime added and patient received 1 unit of blood transfusion today Patient also kept on IV Solu-Medrol and Ringer lactate at 100 mL/h ProCalcitonin is elevated 6.7%. 05/28/2024 Patient remains in the ICU, it looks like she was intubated the night before She remains on IV Solu-Medrol and broad-spectrum antibiotic with IV vancomycin and cefepime. No IV fluids running. No anticoagulation because of the bleeding. Hemoglobin improved 6.6 up to 7.5 Leukocytosis improving 73 down to 48 05/29/24 Patient remains in the ICU intubated and sedated, She is still getting broad-spectrum antibiotic with IV vancomycin and cefepime She remains on IV Solu-Medrol Chest x-ray showing increased haziness on the left side lung and both basal areas more on the left side. 05/31/2024 Patient breathing is better today, she talks freely Has frequent bowel movement not sure if his diarrhea about 3 to 4/day However her main problem is the breathing and the pneumonia looks better but it is complicated empyema Interventional radiologist has been consulted for possible pigtail tube insertion. 06/01/24 pt states Breathing is better, currently she is on 4 L, still has some decreased air entry on the left side. She has recent diarrhea controlled with Lomotil She has significant leukocytosis yesterday but is improving, IV Solu-Medrol lowered to 40 mg twice daily Repeat WBC from today is pending She remains on ceftriaxone based on culture results showing alphahemolytic Streptococcus. Objective - Vital Signs Vital signs: Vital Signs Temp 98.2 F 06/01/24 04:00 Pulse 80 06/01/24 09:19 Resp 20 06/01/24 00:00 BP 144/83 06/01/24 04:00 Pulse Ox 94 L 06/01/24 00:00 FiO2 40 05/29/24 16:00 Intake & Output 05/31/24 06/01/24 06/01/24 18:59 06:59 18:59 Intake Total 20 20 240 Output Total 500 Balance 20 -480 240 Weight 60 kg Intake: IV 20 20 Invasive Line 6 20 20 Oral 0 240 Output: Urine 300 Urine/Stool Mix 200 Other: # Voids 1 1 1 # Bowel Movements 2 1 ABP, PAP, CO, CI - Last Documented Arterial Blood Pressure 121/88 - Exam -GENERAL: The patient is awake but very weak and lethargic HEENT: Pupils are round and equally reacting to light. EOMI. No scleral icterus. No conjunctival pallor. Normocephalic, atraumatic. No pharyngeal erythema. No thyromegaly. CARDIOVASCULAR: S1 and S2 present. No murmurs, rubs, or gallops. PULMONARY: Chest is clear to auscultation, no wheezing , no crackles. ABDOMEN: Soft, nontender, nondistended, normoactive bowel sounds. No palpable organomegaly. MUSCULOSKELETAL: No joint swelling or deformity. EXTREMITIES: No cyanosis, clubbing, or pedal edema. NEUROLOGICAL: Gross neurological examination did not reveal any focal deficits. SKIN: No rashes. no petechiae. - Labs CBC & Chem 7: 05/30/24 05:57 06/01/24 09:00 Labs: Abnormal Lab Results - Last 24 Hours (Table) 05/31/24 05/31/24 05/31/24 Range/Units 10:55 11:41 16:34 Creatinine 0.46 L (0.52-1.04) mg/dL POC Glucose (mg/dL) 131 H 148 H (70-110) mg/dL 05/31/24 06/01/24 Range/Units 19:58 09:00 Creatinine 0.39 L (0.52-1.04) mg/dL POC Glucose (mg/dL) 150 H (70-110) mg/dL Assessment and Plan Assessment: Large loculated left pleural effusion with associated complete collapse of the left lung with mediastinal lymphadenopathy suspicious for malignancy is high. Also there is involvement of the spleen through rate controlled but no anticoagulation diaphragm. Status post thoracocentesis on 05/27 with 1.5 L re moved. S/P bronchoscopy, with BAL, brushings, biopsies, left lower lobe. Severe acute hypoxic respiratory failure, present on admission. Requiring intubation and mechanical ventilation. Acute COPD exacerbation Severe leukocytosis with findings above pneumonia is highly suspected. worsening anemia requiring 1 unit of blood transfusion on 05/27 New onset A-fib and RVR, currently rate controlled but no anticoagulation for severe anemia Hypertension Hyperlipidemia Degenerative disc disease Fibromyalgia Multiple sclerosis Anxiety and depression Plan: Patient transferred to the general medical floor Follow-up respiratory culture S/p thoracocentesis and follow-up pleural fluid show septic workup pneumonia infection Remains on IV Solu-Medrol Continue with broad-spectrum antibiotics with vancomycin and cefepime Follow-up blood culture Cardiology on the case for A-fib RVR but no anticoagulation for anemia Pulmonary, cardiology and hematology/oncology consult Labs and medication were reviewed.. Continue same treatment. Continue with symptomatic treatment. Resume home medication. Monitor labs and vitals. DVT and GI prophylaxis. Further recommendations as per clinical course of the patient DVT prophylaxis:no Subcutaneous heparin GI Prophylaxis: Pepcid Prognosis is guarded
--- NOTE | 2024-06-01 11:13 | P.PN ---
Subjective Progress Note Date: 06/01/24 HISTORY OF PRESENTING ILLNESS This is a 63-year-old with past medical history significant for hypertension, hyperlipidemia, ulcerative colitis, fibromyalgia, multiple sclerosis, anxiety, tobacco abuse, syncopal episodes in the past. 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 She is currently intubated and sedated and history is supplied by chart. Patient has been having worsening shortness breath over last few days. She has history of chronic bronchitis and chronic respiratory failure. Initially was seen in the ER however on floor she had respiratory distress and 18 was called and initially tried IV Lasix however could not tolerate and became tachycardic into And eventually intubated. D-dimer was elevated at 5.5 and therefore CTA was performed which showed no PE however large left pleural ef fusion and loculated left lung collapse and enlarged mediastinal lymphadenectomy concerning for malignancy and therefore oncology was consulted. Cardiology was consult that secondary to A. fib with RVR. Initial EKG showing sinus tachycardia with heart rate 118 bpm however repeat EKG at 23:26 showed A. fib with RVR with heart rate [address] or T wave abnormalities. No prior history of A. fib. She was placed on Cardizem drip with conversion to normal sinus rhythm and heart rates controlled after patient sedated on ventilator. She has been placed on low-dose norepinephrine. 05/27 Patient is seen and examined and remains in the intensive care unit. Patient remains intubated on mechanical ventilation with FiO2 of 60 decreased this morning to 50 and PEEP of 5. Pulse ox is 98%. Blood pressure 115/73, heart rate is in the 80s. Patient has been afebrile. Telemetry is sinus rhythm. Repeat blood work reveals WBC 73.5, hemoglobin 6.6, platelet count 452. Sodium 139, potassium 4.8, CO2 21, BUN 21 creatinine 0.38. Blood cultures are showing no growth. Patient is scheduled for transfusion 1 unit of packed RBCs today. Repeat chest x-ray reveals continued worsening left lung opacity likely reflecting worsening large left-sided pleural effusion and associated left lung atelectasis and/or acute infiltrate. Echo is pending. Cardizem is off. Patient underwent left thoracentesis this morning with removal of 1 and half liters of fluid. 05/28 Patient is seen and examined in the intensive care unit. Patient is intubated on mechanical ventilation with FiO2 of 40 and PEEP of 5. Pulse ox is 96%, blood pressure 118/69, heart rate is in the 80s. Telemetry is sinus rhythm. Patient has been afebrile. Repeat blood work reveals WBC 48, hemoglobin 7.5. Sodium 140, potassium 4.4, BUN 24 creatinine 0.42. Patient was transfused 1 unit packed RBCs yesterday. Echocardiogram has been obtained and report is pending. Repeat chest x-ray reveals persistent moderate left pleural effusion with associated atelectasis. Patient is currently on propofol and norepinephrine. 05/29/2024 Patient is seen and examined at bedside. Hemoglobin 8, WBC 31.4, creatinine 0.4, echo report is awaited Patient continues to be on vent support. 05/31 Patient has been transferred out of the intensive care unit. She is been on sinus rhythm. Eliquis has been on hold in case patient needs thoracentesis. We will readdress this tomorrow. Blood pressure 145/84, heart rate 106, pulse ox 90% on 4 L nasal cannula. Telemetry sinus rhythm. Creatinine 0.46. Patient has been maintained on IV Rocephin, nebulizers and IV Solu-Medrol. CT of the chest reveals trace left pneumothorax likely from recent intervention. Left lower lobe consolidation and scattered groundglass opacities concerning for pneumonia. Loculated left pleural effusion decreased in size. Trace right and small left pleural effusions. Echocardiogram reveals EF 55 to 60%, mild mitral and tricuspid regurgitation and mild pulmonary hypertension. 06/01 Patient is maintaining sinus rhythm. Blood pressure 144/83, heart rate 80s, pulse ox 94% on 4 L nasal cannula. Interventional radiology was consulted for left-sided chest tube/pig-tail catheter. Patient is not currently on anticoagulation we are waiting for any further procedures to be completed which may include another lung biopsy. Patient denies any new consults. PHYSICAL EXAMINATION Vital signs reviewed. CONSTITUTIONAL: No apparent distress, ill appearing on vent HEENT: Head is normocephalic. Pupils are equal, round. Sclerae anicteric. Mucous membranes of the mouth are moist. No JVD. No carotid bruit. CHEST EXAMINATION: Decreased breath sounds on left HEART EXAMINATION: Regular rate and rhythm. S1, S2 heard. No murmurs, gallops or rub. ABDOMEN: Soft, nontender. Positive bowel sounds. EXTREMITIES: 2+ peripheral pulses, no lower extremity edema and no calf tenderness. NEUROLOGIC EXAMINATION: Patient is sedated ASSESSMENT Paroxysmal atrial fibrillation, newly diagnosed, currently in sinus rhythm Acute on chronic hypoxic respiratory failure with left lung collapse, left lung pneumonia/empyema with loculated left lung pleural effusion and lymphadenopathy, s/p left thoracentesis 05/27. Patient was extubated on 05/29 History of COPD Hypertension Hyperlipidemia Fibromyalgia Hypotension may be related to sedation Acute anemia status post transfusion 1 unit packed RBCs Tobacco use and dependence PLAN Patient's main presentation of shortness breath related to left lung opacification and pleural effusion. Continue patient on a atorvastatin 40 mg daily, Lopressor 25 mg twice daily Continue to hold Eliquis until after pigtail catheter and or biopsy CHADSVASC score appears to be 2 for hypertension and female Smoking cessation. Patient will be provided with the [employer] quit line information at discharge. Nurse practitioner note has been reviewed, I agree with documented findings and plan of care. Patient was seen and examined. Objective - Vital Signs Vital signs: Vital Signs Temp 98.2 F 06/01/24 04:00 Pulse 84 06/01/24 08:55 Resp 20 06/01/24 00:00 BP 144/83 06/01/24 04:00 Pulse Ox 94 L 06/01/24 00:00 FiO2 40 05/29/24 16:00 Intake & Output 05/31/24 06/01/24 06/01/24 18:59 06:59 18:59 Intake Total 20 20 Output Total 500 Balance 20 -480 Weight 60 kg Intake: IV 20 20 Invasive Line 6 20 20 Oral 0 Output: Urine 300 Urine/Stool Mix 200 Other: # Voids 1 1 1 # Bowel Movements 2 1 ABP, PAP, CO, CI - Last Documented Arterial Blood Pressure 121/88 - Labs CBC & Chem 7: 05/30/24 05:57 06/01/24 09:00 Labs: Abnormal Lab Results - Last 24 Hours (Table) 05/31/24 05/31/24 05/31/24 Range/Units 10:55 11:41 16:34 Creatinine 0.46 L (0.52-1.04) mg/dL POC Glucose (mg/dL) 131 H 148 H (70-110) mg/dL 05/31/24 Range/Units 19:58 Creatinine (0.52-1.04) mg/dL POC Glucose (mg/dL) 150 H (70-110) mg/dL
[2024-06-01 11:49] LABS: Glucose,Whole Blood 160 mg/dL (70-110)
--- NOTE | 2024-06-01 16:36 | P.PN ---
Subjective Progress Note Date: 06/01/24 63-year-old female seen this morning in consultation. The patient was seen initially in the emergency department, on May 25. She apparently came in with complaints of shortness of breath, and low saturations. The patient has been treated recently for bronchitis with steroids and antibiotics. This morning, a rapid response was called on this patient, and, the charge nurse called me, to tell me that the patient would benefit from Lasix, and BiPAP. That was done initially, but subsequent to that, another rapid response was called on this patient, and the patient needed to be transferred to the intensive care unit, for intubation and mechanical ventilation. Currently, she is on volume assist- control, rate 20, tidal volume 350, FiO2 100%, PEEP of 5. She is on a Cardizem drip at 10 mg an hour for atrial fibrillation, propofol at 60 mcg/kg/min, and she is receiving some fluid, i.e. saline, at 1 L, as a fluid bolus. Afterwards, she will be switched to lactated Ringer's at 100 cc an hour. She had a an arterial line placed, and a central line placed. We did a right radial arterial line, and a left subclavian triple-lumen catheter. She was intubated by the [employer] EXAM[employer]ER. Current labs include a white count of 54.7, hemoglobin 8.7, hematocrit 29.7, and a platelet count of 605,000. Initial blood gases showed a pO2 of 146, pCO2 of 61, and pH is 7.24. The rate was increased from 28 to 24 breaths/min. In addition, the FiO2 was dropped down to 70%. Sodium 138, potassium 4.9, chlorides 102, CO2 28, BUN 18, creatinine 0.45. Glucose is 288. Calcium is 8.9. Lactic acid 1.3. The left chest reveals a pleural effusion, with possible loculations. An ultrasound was ordered. In addition, the patient had bronchoscopy, with airway examination, therapeutic lavage, BAL, brushings left lower lobe, and endobronchial and transbronchial biopsies left lower lobe. Progress note dated May 27, 2024. 63-year-old female seen in consultation yesterday. Please see the note above. The patient developed lopez respiratory failure, and was intubated, yesterday, May 26. She remains on mechanical ventilator. She is on volume assist- control, rate 24, tidal volume 350, FiO2 60%, to be reduced down to 50%, PEEP of 5. Blood gases show pO2 of 112, pCO2 44, pH is 7.37. The patient continues on propofol at 60 mcg/kg/min, norepinephrine at 7 mcg/min, fentanyl at 2 mcg/kg/h, LR at 100 cc an hour. The patient is on vancomycin, and we add cefepime. The patient had a left-sided thoracentesis today. 1.5 L of milky slightly green fluid was removed from the left pleural space. The patient's procalcitonin level is elevated 9.74. Current labs include a white count of 73.5, hemoglobin 6.6, hematocrit 22.2, platelet count 452,000. The patient will get 1 unit of PRBCs. In addition, sodium 139, potassium 4.8, chlorides 108, CO2 21, anion gap 10, BUN 21, creatinine 0.38. Calcium is 8.3. Magnesium is 1.9. Cultures are thus far negative. The postthoracentesis chest x-ray shows an improved left- sided pleural fluid collection, and a small to moderate size left-sided hydropneumothorax. Progress note dated May 28, 2024. 63-year-old female seen in consultation 2 days ago. The patient remains on mechanical ventilator. She is seen today in room 262. She is on volume assist- control, rate 24, tidal volume 350, FiO2 50%, PEEP of 5. Blood gases show pO2 119, pCO2 45, pH is 7.40. The FiO2 will be reduced at 40%. She is sedated with propofol at 65 mcg/kg/min, norepinephrine at 1.2 mcg/min, and fentanyl at 2 mcg/kg/h. She is getting lactated Ringer's at 100 cc an hour, and vital high- protein at 33 cc an hour. She continues on cefepime, and vancomycin. Current laboratory data includes a white count 48.1, hemoglobin 7.5, hematocrit 25.6, and platelet count 382,000. Sodium 140, potassium 4.4, chlorides 111, CO2 26, BUN 24, creatinine 0.42. Glucose is 215. Calcium 8.2. Cultures thus far are negative. That includes bronchoscopy results. Chest x-ray shows a relatively clear right lung. There is some haziness, on the left side, with a left-sided pleural effusion. She did undergo thoracentesis yesterday. On 05/29/2024, seen the patient for a follow-up. This morning, the patient remains intubated on mechanical ventilator. I reviewed the records and the patient came to us with a complicated loculated large left-sided pleural effusion which was drained and the fluid is an exudate with negative cultures. Subsequent chest x-ray from today still showing some loculated left-sided pleural effusion. The patient remains on a combination of antibiotics utilizing cefepime and vancomycin. This morning, the patient remains on propofol running at 60 mcg/kg/min and fentanyl at 2 mcg/kg/h. Patient remains on lactated Ringer at rate of 100 cc an hour. Norepinephrine drip has been discontinued approximately 24 hours ago. She is on assist-control mode of mechanical ventilation at rate of 24, tidal volume of 350, FiO2 of 40% with a PEEP of 5 and a blood gases showing a pH of 7.41 with a pCO2 of 46 and pO2 of 77. The white cell count is down to 31 and the hemoglobin is at 8 with a platelet count of 368. The procalcitonin level is downtrending from 9.7 down to 6.7. The rest of the electrolytes are stable with a BUN of 25 and a creatinine of 0.4 and a serum bicarb of 28. The patient is arousable while being off of sedation. Will check weaning parameters and assess her candidacy for further weaning. The patient is on vital high-protein at rate of 33 cc an hour. Today's evaluation of 05/30/2024, the patient is being seen for a follow-up. The patient was weaned off the mechanical ventilator and the patient was extubated to nasal cannula yesterday without any major difficulties and the patient is currently on 40s of oxygen nasal cannula. The follow-up chest x-ray still showing a persistent left-sided pleural effusion along with loculation. There i s also some increase in small right-sided pleural effusion. The microbial cultures from the pleural fluid came back positive for alpha hemolytic Streptococcus. Antibiotic adjustments will be done accordingly. Hemodynamically stable. No significant chest pain. No discomfort. The patient remains on bronchodilators. The patient remains on IV Solu-Medrol. Blood work from today shows improvement in the white cell count which is currently down to 24 with a hemoglobin of 8.3 and a platelet count of 373, BUN is 24 and a creatinine of 0.4 and a electrolytes are all within normal limits. Awake and alert and communicating and using the incentive spirometer. 05/31/2024, the patient is being seen for a follow-up. The patient is still recovering from an extensive left lung pneumonia that was complicated by empyema and this is likely secondary to streptococcal pneumonia. Her white cell count is improving. Her respiratory status is stable. Hemodynamically stable. The patient is currently on 4 L of oxygen by nasal cannula with a pulse ox of 95%. Meanwhile, a follow-up CAT scan of the chest was done and the patient was found to have a loculated left pleural effusion which has diminished in size. There is still a loculated pocket in the posterior left lung base. Trace left-sided pneumothorax. There is also an ongoing consolidation and areas of scattered groundglass opacities correlating with pneumonia. Small right-sided pleural effusion is also seen. The patient's blood work from today shows a white cell count of 24 with a hemoglobin 8.3 and a platelet count of 373. Electrolytes are all stable and within normal limits. Renal function is also stable. The patient remains on IV antibiotics. The patient remains on IV Rocephin 2 g every 24 hours. Rest of the medications are essentially unchanged. Remains on IV Solu-Medrol 60 mg every 6 hours. 06/01/2024, patient is being seen for a follow-up. The patient feeling well. No specific complaints. She remains on oxygen 4 L/min nasal cannula. No chest pain. No shortness of breath. I reviewed the CAT scan of the chest that was done yesterday and I requested an interventional radiology consultation for the pigtail catheter insertion. Unfortunately, this has not been completed and no IR services are available for this current holiday. I am hoping that this can be completed by tomorrow. Meanwhile, the patient is doing well. The patient remains on antibiotics with IV Rocephin. No new labs from today. Clinically stable. Hemodynamically stable. No pleurisy. No hemoptysis. Objective - Vital Signs Vital signs: Vital Signs Temp 98.2 F 06/01/24 04:00 Pulse 80 06/01/24 09:19 Resp 20 06/01/24 00:00 BP 144/83 06/01/24 04:00 Pulse Ox 94 L 06/01/24 00:00 FiO2 40 05/29/24 16:00 Intake & Output 05/31/24 06/01/24 06/01/24 18:59 06:59 18:59 Intake Total 20 20 240 Output Total 500 Balance 20 -480 240 Weight 60 kg Intake: IV 20 20 Invasive Line 6 20 20 Oral 0 240 Output: Urine 300 Urine/Stool Mix 200 Other: # Voids 1 1 1 # Bowel Movements 2 1 ABP, PAP, CO, CI - Last Documented Arterial Blood Pressure 121/88 - Exam No acute distress, currently on 4 L of oxygen by nasal cannula Head exam was generally normal. There was no scleral icterus or corneal arcus. Mucous membranes were moist. HEENT examination is grossly unremarkable. Neck supple. Full range of motion. No adenopathy thyromegaly or neck vein distention. Cardiovascular examination reveals regular rhythm rate. S1-S2 normal. No S3 or S4. No discernible murmur noted. Heart sounds are distant. Lungs reveal bilateral coarse rhonchi. No expiratory wheezes. No crackles. Breath sounds equal. Diminished breath on the left compared to the right. No significant wheezes or rhonchi. Abdomen soft without bowel sounds. No masses or tenderness. Extremities are intact. No cyanosis clubbing or edema. Skin is without rash or lesion. Neurologically, the patient is awake and alert and the patient does not have any focal neurological deficit. Cranial nerves are essentially intact. - Labs CBC & Chem 7: 05/30/24 05:57 06/01/24 09:00 Labs: Abnormal Lab Results - Last 24 Hours (Table) 05/31/24 05/31/24 05/31/24 Range/Units 10:55 11:41 16:34 Creatinine 0.46 L (0.52-1.04) mg/dL POC Glucose (mg/dL) 131 H 148 H (70-110) mg/dL 05/31/24 06/01/24 Range/Units 19:58 09:00 Creatinine 0.39 L (0.52-1.04) mg/dL POC Glucose (mg/dL) 150 H (70-110) mg/dL Assessment and Plan Plan: Acute hypoxic respiratory failure, requiring intubation, and mechanical ventilation, May 26, 2024. The patient was extubated on 05/29/2024 without any major difficulties and the patient is currently on 4 L of O2 nasal cannula. Acute left lung pneumonia/empyema with a loculated left-sided pleural effusion. Pleural fluid was positive for alphahemolytic strep and patient has a likely st reptococcal pneumonia with secondary empyema. The patient has residual pocket of a empyema in the left lung base. Will consult interventional radiology for the pigtail catheter insertion. Overall findings on the CAT scan of the chest has improved. Residual consolidation of the left lung base. loculated left-sided pleural effusion representing a complicated parapneumonic effusion/empyema. The patient had also significant consolidation/atelectasis of the left lung, the pleural fluid cultures have been positive for hemolytic strep. The patient has persistent loculation. CAT scan of the chest was reviewed and interventional radiology was consulted. S/P bronchoscopy, with BAL, brushings, biopsies, left lower lobe. The airways are patent and the patient's cultures are negative S/P left-sided thoracentesis, with 1.5 L of fluid removed, May 27, 2024. There is residual loculated left-sided pleural effusion on today's chest x-ray. Severe leukocytosis, improving History of ongoing tobacco use with nicotine addiction. History of hypertension. History of hyperlipidemia. History of fibromyalgia. History of migraine cephalgia. History of ulcerative colitis. History of anxiety/depression. Paroxysmal atrial fibrillation current rhythm is sinus and the patient is off the Cardizem drip. Plan Overall condition is unchanged E oxygenation is stable and the patient remains on oxygen at 4 L/min nasal cannula Consult interventional radiology for pigtail catheter insertion/possible drainage of the loculated empyema in the left lung base. This was not done yesterday nor today as there is no IR physician on-call. I am hoping that this can be completed tomorrow. White cell count is improving and will continue monitor the white cell count, repeat labs will be obtained for tomorrow. Monitor the procalcitonin level which is downtrending continue IV antibiotics and switch this patient to 2 g of Rocephin every 24 hours Continue Solu-Medrol 40 mg of IV every 12 hours. Hemodynamically stable on no pressors Condition is stable and will continue to follow.
[2024-06-01 16:41] LABS: Glucose,Whole Blood 125 mg/dL (70-110)
[2024-06-01 20:07] LABS: Glucose,Whole Blood 135 mg/dL (70-110)
[2024-06-02 06:25] LABS: Glucose,Whole Blood 65 mg/dL (70-110)
[2024-06-02 06:53] LABS: Glucose,Whole Blood 80 mg/dL (70-110)
[2024-06-02 09:06] LABS: INR 1.1 (<1.2); Prothrombin Time 11.8 sec (10.0-12.5)
[2024-06-02 09:31] LABS: African American GFR (CKD) >90 (>60 ml/min/1.73 sqM); Non-African American GFR(CKD) >90 (>60 ml/min/1.73 sqM)
--- NOTE | 2024-06-02 10:52 | XR ---
EXAMINATION TYPE: XR chest 1V DATE OF EXAM: 06/02/2024 COMPARISON: 05/30/2024 HISTORY: 63-year-old female empyema TECHNIQUE: Single frontal view of the chest is obtained. FINDINGS: Moderate to large left-sided loculated pleural effusion redemonstrated. This appears sligh tly thicker than prior exam. Extensive left basilar and retrocardiac opacity persists. Small right pl eural effusion with prominent right lower lung opacity redemonstrated. Background hyperinflation. Lef t heart margin obscured by adjacent pleural parenchymal opacity. IMPRESSION: 1. Possible slight increasing size of the moderate to large left-sided empyema. 2. Ongoing small right pleural effusion but with prominent adjacent atelectasis and/or consolidation. 3. Background COPD.
[2024-06-02 11:21] LABS: African American GFR (CKD) >90 (>60 ml/min/1.73 sqM); Anion Gap 3 mmol/L; Blood Urea Nitrogen 13 mg/dL (7-17); Carbon Dioxide 34 mmol/L (22-30); Chloride 101 mmol/L (98-107); Glucose 93 mg/dL (74-99); Non-African American GFR(CKD) >90 (>60 ml/min/1.73 sqM); Sodium 138 mmol/L (137-145)
[2024-06-02 11:26] LABS: Potassium 3.4 mmol/L (3.5-5.1)
[2024-06-02 11:41] LABS: Anisocytosis Slight; Hypochromasia Marked; MCH 30.4 pg (25.0-35.0); MCV 101.4 fL (80.0-100.0); Macrocytosis Moderate; Mean Platelet Volume 11.1; Platelet Count 279 k/uL (150-450); RBC 3.84 m/uL (3.80-5.40)
[2024-06-02 11:48] LABS: HGB 11.7 gm/dL (11.4-16.0)
[2024-06-02 11:53] LABS: Glucose,Whole Blood 111 mg/dL (70-110)
--- NOTE | 2024-06-02 11:58 | CT ---
EXAMINATION TYPE: CT chest tube insertion DATE OF EXAM: 06/02/2024 COMPARISON: 05/30/2024 HISTORY: Left empyema CT DLP: 757 mGycm TECHNIQUE: The procedure is discussed with the patient, the risks, complications, benefits and alternatives, wer e discussed and any questions were answered. Informed consent was obtained. The patient is placed s upine on the CT table, prepped and draped in the usual sterile fashion. FINDINGS: Utilizing a access needle and wire access in the left pleural space was achieved and there is placem ent of an 0.035 guidewire. There is dilation of the tract with subsequent placement of 8.5 [place] yvrose inage catheter. Repeat imaging demonstrated ideal placement of the catheter. Sample of purulent mater ial was obtained and sent to pathology for analysis. Pathology pending. All elements of maximal bar rier and sterile technique were utilized. The patient remained stable throughout the procedure with no immediate postprocedural complication. IMPRESSION: 1. Successful CT guided left chest tube insertion
--- NOTE | 2024-06-02 14:04 | P.PN ---
Subjective Progress Note Date: 06/02/24 HISTORY OF PRESENTING ILLNESS This is a 63-year-old with past medical history significant for hypertension, hyperlipidemia, ulcerative colitis, fibromyalgia, multiple sclerosis, anxiety, tobacco abuse, syncopal episodes in the past. 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 She is currently intubated and sedated and history is supplied by chart. Patient has been having worsening shortness breath over last few days. She has history of chronic bronchitis and chronic respiratory failure. Initially was seen in the ER however on floor she had respiratory distress and 18 was called and initially tried IV Lasix however could not tolerate and became tachycardic into And eventually intubated. D-dimer was elevated at 5.5 and therefore CTA was performed which showed no PE however large left pleural ef fusion and loculated left lung collapse and enlarged mediastinal lymphadenectomy concerning for malignancy and therefore oncology was consulted. Cardiology was consult that secondary to A. fib with RVR. Initial EKG showing sinus tachycardia with heart rate 118 bpm however repeat EKG at 23:26 showed A. fib with RVR with heart rate [address] or T wave abnormalities. No prior history of A. fib. She was placed on Cardizem drip with conversion to normal sinus rhythm and heart rates controlled after patient sedated on ventilator. She has been placed on low-dose norepinephrine. 05/27 Patient is seen and examined and remains in the intensive care unit. Patient remains intubated on mechanical ventilation with FiO2 of 60 decreased this morning to 50 and PEEP of 5. Pulse ox is 98%. Blood pressure 115/73, heart rate is in the 80s. Patient has been afebrile. Telemetry is sinus rhythm. Repeat blood work reveals WBC 73.5, hemoglobin 6.6, platelet count 452. Sodium 139, potassium 4.8, CO2 21, BUN 21 creatinine 0.38. Blood cultures are showing no growth. Patient is scheduled for transfusion 1 unit of packed RBCs today. Repeat chest x-ray reveals continued worsening left lung opacity likely reflecting worsening large left-sided pleural effusion and associated left lung atelectasis and/or acute infiltrate. Echo is pending. Cardizem is off. Patient underwent left thoracentesis this morning with removal of 1 and half liters of fluid. 05/28 Patient is seen and examined in the intensive care unit. Patient is intubated on mechanical ventilation with FiO2 of 40 and PEEP of 5. Pulse ox is 96%, blood pressure 118/69, heart rate is in the 80s. Telemetry is sinus rhythm. Patient has been afebrile. Repeat blood work reveals WBC 48, hemoglobin 7.5. Sodium 140, potassium 4.4, BUN 24 creatinine 0.42. Patient was transfused 1 unit packed RBCs yesterday. Echocardiogram has been obtained and report is pending. Repeat chest x-ray reveals persistent moderate left pleural effusion with associated atelectasis. Patient is currently on propofol and norepinephrine. 05/29/2024 Patient is seen and examined at bedside. Hemoglobin 8, WBC 31.4, creatinine 0.4, echo report is awaited Patient continues to be on vent support. 05/31 Patient has been transferred out of the intensive care unit. She is been on sinus rhythm. Eliquis has been on hold in case patient needs thoracentesis. We will readdress this tomorrow. Blood pressure 145/84, heart rate 106, pulse ox 90% on 4 L nasal cannula. Telemetry sinus rhythm. Creatinine 0.46. Patient has been maintained on IV Rocephin, nebulizers and IV Solu-Medrol. CT of the chest reveals trace left pneumothorax likely from recent intervention. Left lower lobe consolidation and scattered groundglass opacities concerning for pneumonia. Loculated left pleural effusion decreased in size. Trace right and small left pleural effusions. Echocardiogram reveals EF 55 to 60%, mild mitral and tricuspid regurgitation and mild pulmonary hypertension. 06/01 Patient is maintaining sinus rhythm. Blood pressure 144/83, heart rate 80s, pulse ox 94% on 4 L nasal cannula. Interventional radiology was consulted for left-sided chest tube/pig-tail catheter. Patient is not currently on anticoagulation we are waiting for any further procedures to be completed which may include another lung biopsy. Patient denies any new concerns. 06/02 Patient is returning from radiology post chest tube insertion by IR. Chest tube is draining purulent material. Blood pressure 120/83, heart rate in the 80s and 90s, afebrile, pulse ox 94% on high flow nasal cannula. Repeat blood work reveals WBC 28, hemoglobin 11.7. Creatinine 0.38. PHYSICAL EXAMINATION Vital signs reviewed. CONSTITUTIONAL: No apparent distress, ill appearing on vent HEENT: Head is normocephalic. Pupils are equal, round. Sclerae anicteric. Mucous membranes of the mouth are moist. No JVD. No carotid bruit. CHEST EXAMINATION: Decreased breath sounds on left HEART EXAMINATION: Regular rate and rhythm. S1, S2 heard. No murmurs, gallops or rub. ABDOMEN: Soft, nontender. Positive bowel sounds. EXTREMITIES: 2+ peripheral pulses, no lower extremity edema and no calf tenderness. NEUROLOGIC EXAMINATION: Patient is sedated ASSESSMENT Paroxysmal atrial fibrillation, newly diagnosed, currently in sinus rhythm Acute on chronic hypoxic respiratory failure with left lung collapse, left lung pneumonia/empyema with loculated left lung pleural effusion and lymphadenopathy, s/p left thoracentesis 05/27. Patient was extubated on 05/29. Chest tube insertion 06/02 by IR. History of COPD Hypertension Hyperlipidemia Fibromyalgia Hypotension may be related to sedation Acute anemia status post transfusion 1 unit packed RBCs Tobacco use and dependence PLAN Patient's main presentation of shortness breath related to left lung opacification and pleural effusion. Continue patient on a atorvastatin 40 mg daily, Lopressor 25 mg twice daily Patient will be started on Eliquis 5 mg twice daily CHADSVASC score appears to be 2 for hypertension and female Smoking cessation. Patient will be provided with the [employer] quit line information at discharge. Cardiology will sign off this case and follow on an as-needed basis. Please reconsult for any new concerns. Patient may follow-up in the office in one to 2 weeks. Nurse practitioner note has been reviewed, I agree with documented findings and plan of care. Patient was seen and examined. Objective - Vital Signs Vital signs: Vital Signs Temp 98.2 F 06/02/24 07:50 Pulse 87 06/02/24 11:05 Resp 18 06/02/24 11:05 BP 124/67 06/02/24 07:50 Pulse Ox 100 06/02/24 11:05 FiO2 40 05/29/24 16:00 Intake & Output 06/01/24 06/02/24 06/02/24 18:59 06:59 18:59 Intake Total 378 20 10 Balance 378 20 10 Weight 58.6 kg Intake: IV 20 20 10 Invasive Line 6 20 20 10 Oral 358 Other: # Voids 2 1 # Bowel Movements 1 ABP, PAP, CO, CI - Last Documented Arterial Blood Pressure 121/88 - Labs CBC & Chem 7: 06/02/24 07:26 06/02/24 07:26 Labs: Abnormal Lab Results - Last 24 Hours (Table) 05/27/24 06/01/24 06/01/24 Range/Units 09:45 11:48 16:39 Potassium (3.5-5.1) mmol/L Carbon Dioxide (22-30) mmol/L Creatinine (0.52-1.04) mg/dL POC Glucose (mg/dL) 160 H 125 H (70-110) mg/dL Calcium (8.4-10.2) mg/dL Adenovirus (PCR) See Below A (Not detected) CMV DNA Qual PCR See Below A (Not detected) HSV I DNA PCR See Below A (Not detected) HSV II DNA PCR See Below A (Not detected) Parainfluenza 1 (PCR) See Below A (Not detected) Parainfluenza 2 (PCR) See Below A (Not detected) Parainfluenza 3 (PCR) See Below A (Not detected) RSV (PCR) See Below A (Not detected) Rhinovirus (PCR) See Below A (Not detected) SARS-CoV-2 (PCR) See Below A (Not detected) Enterovirus PCR See Below A (Not detected) Influenza Type A (PCR) See Below A (Not detected) Influenza Type B (PCR) See Below A (Not detected) 06/01/24 06/02/24 06/02/24 Range/Units 20:06 06:24 07:26 Potassium (3.5-5.1) mmol/L Carbon Dioxide (22-30) mmol/L Creatinine 0.39 L (0.52-1.04) mg/dL POC Glucose (mg/dL) 135 H 65 L (70-110) mg/dL Calcium (8.4-10.2) mg/dL Adenovirus (PCR) (Not detected) CMV DNA Qual PCR (Not detected) HSV I DNA PCR (Not detected) HSV II DNA PCR (Not detected) Parainfluenza 1 (PCR) (Not detected) Parainfluenza 2 (PCR) (Not detected) Parainfluenza 3 (PCR) (Not detected) RSV (PCR) (Not detected) Rhinovirus (PCR) (Not detected) SARS-CoV-2 (PCR) (Not detected) Enterovirus PCR (Not detected) Influenza Type A (PCR) (Not detected) Influenza Type B (PCR) (Not detected) 06/02/24 Range/Units 07:26 Potassium 3.4 L (3.5-5.1) mmol/L Carbon Dioxide 34 H (22-30) mmol/L Creatinine 0.38 L (0.52-1.04) mg/dL POC Glucose (mg/dL) (70-110) mg/dL Calcium 8.0 L (8.4-10.2) mg/dL Adenovirus (PCR) (Not detected) CMV DNA Qual PCR (Not detected) HSV I DNA PCR (Not detected) HSV II DNA PCR (Not detected) Parainfluenza 1 (PCR) (Not detected) Parainfluenza 2 (PCR) (Not detected) Parainfluenza 3 (PCR) (Not detected) RSV (PCR) (Not detected) Rhinovirus (PCR) (Not detected) SARS-CoV-2 (PCR) (Not detected) Enterovirus PCR (Not detected) Influenza Type A (PCR) (Not detected) Influenza Type B (PCR) (Not detected)
--- NOTE | 2024-06-02 14:11 | P.PN ---
Subjective Progress Note Date: 06/02/24 63-year-old female seen this morning in consultation. The patient was seen initially in the emergency department, on May 25. She apparently came in with complaints of shortness of breath, and low saturations. The patient has been treated recently for bronchitis with steroids and antibiotics. This morning, a rapid response was called on this patient, and, the charge nurse called me, to tell me that the patient would benefit from Lasix, and BiPAP. That was done initially, but subsequent to that, another rapid response was called on this patient, and the patient needed to be transferred to the intensive care unit, for intubation and mechanical ventilation. Currently, she is on volume assist- control, rate 20, tidal volume 350, FiO2 100%, PEEP of 5. She is on a Cardizem drip at 10 mg an hour for atrial fibrillation, propofol at 60 mcg/kg/min, and she is receiving some fluid, i.e. saline, at 1 L, as a fluid bolus. Afterwards, she will be switched to lactated Ringer's at 100 cc an hour. She had a an arterial line placed, and a central line placed. We did a right radial arterial line, and a left subclavian triple-lumen catheter. She was intubated by the ED MANAGER. Current labs include a white count of 54.7, hemoglobin 8.7, hematocrit 29.7, and a platelet count of 605,000. Initial blood gases showed a pO2 of 146, pCO2 of 61, and pH is 7.24. The rate was increased from 28 to 24 breaths/min. In addition, the FiO2 was dropped down to 70%. Sodium 138, potassium 4.9, chlorides 102, CO2 28, BUN 18, creatinine 0.45. Glucose is 288. Calcium is 8.9. Lactic acid 1.3. The left chest reveals a pleural effusion, with possible loculations. An ultrasound was ordered. In addition, the patient had bronchoscopy, with airway examination, therapeutic lavage, BAL, brushings left lower lobe, and endobronchial and transbronchial biopsies left lower lobe. Progress note dated May 27, 2024. 63-year-old female seen in consultation yesterday. Please see the note above. The patient developed lopez respiratory failure, and was intubated, yesterday, May 26. She remains on mechanical ventilator. She is on volume assist- control, rate 24, tidal volume 350, FiO2 60%, to be reduced down to 50%, PEEP of 5. Blood gases show pO2 of 112, pCO2 44, pH is 7.37. The patient continues on propofol at 60 mcg/kg/min, norepinephrine at 7 mcg/min, fentanyl at 2 mcg/kg/h, LR at 100 cc an hour. The patient is on vancomycin, and we add cefepime. The patient had a left-sided thoracentesis today. 1.5 L of milky slightly green fluid was removed from the left pleural space. The patient's procalcitonin level is elevated 9.74. Current labs include a white count of 73.5, hemoglobin 6.6, hematocrit 22.2, platelet count 452,000. The patient will get 1 unit of PRBCs. In addition, sodium 139, potassium 4.8, chlorides 108, CO2 21, anion gap 10, BUN 21, creatinine 0.38. Calcium is 8.3. Magnesium is 1.9. Cultures are thus far negative. The postthoracentesis chest x-ray shows an improved left- sided pleural fluid collection, and a small to moderate size left-sided hydropneumothorax. Progress note dated May 28, 2024. 63-year-old female seen in consultation 2 days ago. The patient remains on mechanical ventilator. She is seen today in room 262. She is on volume assist- control, rate 24, tidal volume 350, FiO2 50%, PEEP of 5. Blood gases show pO2 119, pCO2 45, pH is 7.40. The FiO2 will be reduced at 40%. She is sedated with propofol at 65 mcg/kg/min, norepinephrine at 1.2 mcg/min, and fentanyl at 2 mcg/kg/h. She is getting lactated Ringer's at 100 cc an hour, and vital high- protein at 33 cc an hour. She continues on cefepime, and vancomycin. Current laboratory data includes a white count 48.1, hemoglobin 7.5, hematocrit 25.6, and platelet count 382,000. Sodium 140, potassium 4.4, chlorides 111, CO2 26, BUN 24, creatinine 0.42. Glucose is 215. Calcium 8.2. Cultures thus far are negative. That includes bronchoscopy results. Chest x-ray shows a relatively clear right lung. There is some haziness, on the left side, with a left-sided pleural effusion. She did undergo thoracentesis yesterday. On 05/29/2024, seen the patient for a follow-up. This morning, the patient remains intubated on mechanical ventilator. I reviewed the records and the patient came to us with a complicated loculated large left-sided pleural effusion which was drained and the fluid is an exudate with negative cultures. Subsequent chest x-ray from today still showing some loculated left-sided pleural effusion. The patient remains on a combination of antibiotics utilizing cefepime and vancomycin. This morning, the patient remains on propofol running at 60 mcg/kg/min and fentanyl at 2 mcg/kg/h. Patient remains on lactated Ringer at rate of 100 cc an hour. Norepinephrine drip has been discontinued approximately 24 hours ago. She is on assist-control mode of mechanical ventilation at rate of 24, tidal volume of 350, FiO2 of 40% with a PEEP of 5 and a blood gases showing a pH of 7.41 with a pCO2 of 46 and pO2 of 77. The white cell count is down to 31 and the hemoglobin is at 8 with a platelet count of 368. The procalcitonin level is downtrending from 9.7 down to 6.7. The rest of the electrolytes are stable with a BUN of 25 and a creatinine of 0.4 and a serum bicarb of 28. The patient is arousable while being off of sedation. Will check weaning parameters and assess her candidacy for further weaning. The patient is on vital high-protein at rate of 33 cc an hour. Today's evaluation of 05/30/2024, the patient is being seen for a follow-up. The patient was weaned off the mechanical ventilator and the patient was extubated to nasal cannula yesterday without any major difficulties and the patient is currently on 40s of oxygen nasal cannula. The follow-up chest x-ray still showing a persistent left-sided pleural effusion along with loculation. There i s also some increase in small right-sided pleural effusion. The microbial cultures from the pleural fluid came back positive for alpha hemolytic Streptococcus. Antibiotic adjustments will be done accordingly. Hemodynamically stable. No significant chest pain. No discomfort. The patient remains on bronchodilators. The patient remains on IV Solu-Medrol. Blood work from today shows improvement in the white cell count which is currently down to 24 with a hemoglobin of 8.3 and a platelet count of 373, BUN is 24 and a creatinine of 0.4 and a electrolytes are all within normal limits. Awake and alert and communicating and using the incentive spirometer. 05/31/2024, the patient is being seen for a follow-up. The patient is still recovering from an extensive left lung pneumonia that was complicated by empyema and this is likely secondary to streptococcal pneumonia. Her white cell count is improving. Her respiratory status is stable. Hemodynamically stable. The patient is currently on 4 L of oxygen by nasal cannula with a pulse ox of 95%. Meanwhile, a follow-up CAT scan of the chest was done and the patient was found to have a loculated left pleural effusion which has diminished in size. There is still a loculated pocket in the posterior left lung base. Trace left-sided pneumothorax. There is also an ongoing consolidation and areas of scattered groundglass opacities correlating with pneumonia. Small right-sided pleural effusion is also seen. The patient's blood work from today shows a white cell count of 24 with a hemoglobin 8.3 and a platelet count of 373. Electrolytes are all stable and within normal limits. Renal function is also stable. The patient remains on IV antibiotics. The patient remains on IV Rocephin 2 g every 24 hours. Rest of the medications are essentially unchanged. Remains on IV Solu-Medrol 60 mg every 6 hours. 06/01/2024, patient is being seen for a follow-up. The patient feeling well. No specific complaints. She remains on oxygen 4 L/min nasal cannula. No chest pain. No shortness of breath. I reviewed the CAT scan of the chest that was done yesterday and I requested an interventional radiology consultation for the pigtail catheter insertion. Unfortunately, this has not been completed and no IR services are available for this current holiday. I am hoping that this can be completed by tomorrow. Meanwhile, the patient is doing well. The patient remains on antibiotics with IV Rocephin. No new labs from today. Clinically stable. Hemodynamically stable. No pleurisy. No hemoptysis. On today's evaluation of 06/02/2024, the patient is going to undergo a pigtail catheter insertion regarding the loculated pocket of empyema in the left lung base. Case was discussed with interventional radiology. Meanwhile, the patient oxygenation status is getting worse. Earlier this morning, the patient was on 4 L and she was brought up to 14 L and currently she is down to 11 L of oxygen by nasal cannula with a pulse ox of 94%. The patient has no specific complaints. She remains on IV Rocephin. She has been on bronchodilators. She has been on steroids. Her white cell count is currently at 28 with a hemoglobin 11.7 and a platelet count of 279. BUN is 13 with a creatinine of 0.8. Repeat chest x-ray was done today and the patient was found to have a large loculated empyema in the left lung. Small pleural effusion was also noted on the right lung base. Noted the loculation has developed in the left lung compared to the earlier chest x-ray and the patient is going to undergo a pigtail catheter insertion for further drainage. No chest pain. No fever or chills. No other new complaints otherwise for now. Objective - Vital Signs Vital signs: Vital Signs Temp 97.5 F L 06/02/24 12:00 Pulse 88 06/02/24 12:14 Resp 20 06/02/24 12:00 BP 120/83 06/02/24 12:00 Pulse Ox 94 L 06/02/24 12:00 FiO2 40 05/29/24 16:00 Intake & Output 06/01/24 06/02/24 06/02/24 18:59 06:59 18:59 Intake Total 378 20 10 Balance 378 20 10 Weight 58.6 kg 58.6 kg Intake: IV 20 20 10 Invasive Line 6 20 20 10 Oral 358 Other: # Voids 2 1 # Bowel Movements 1 ABP, PAP, CO, CI - Last Documented Arterial Blood Pressure 121/88 - Exam No acute distress, currently on 11 L of oxygen by nasal cannula Head exam was generally normal. There was no scleral icterus or corneal arcus. Mucous membranes were moist. HEENT examination is grossly unremarkable. Neck supple. Full range of motion. No adenopathy thyromegaly or neck vein distention. Cardiovascular examination reveals regular rhythm rate. S1-S2 normal. No S3 or S4. No discernible murmur noted. Heart sounds are distant. Lungs reveal bilateral coarse rhonchi. No expiratory wheezes. No crackles. Breath sounds equal. Diminished breath on the left compared to the right. No significant wheezes or rhonchi. Abdomen soft without bowel sounds. No masses or tenderness. Extremities are intact. No cyanosis clubbing or edema. Skin is without rash or lesion. Neurologically, the patient is awake and alert and the patient does not have any focal neurological deficit. Cranial nerves are essentially intact. - Labs CBC & Chem 7: 06/02/24 07:06/02/24 07: Labs: Abnormal Lab Results - Last 24 Hours (Table) 05/27/24 06/01/24 06/01/24 Range/Units 09:45 16:39 20:06 WBC (3.8-10.6) k/uL MCV (80.0-100.0) fL MCHC (31.0-37.0) g/dL RDW (11.5-15.5) % Potassium (3.5-5.1) mmol/L Carbon Dioxide (22-30) mmol/L Creatinine (0.52-1.04) mg/dL POC Glucose (mg/dL) 125 H 135 H (70-110) mg/dL Calcium (8.4-10.2) mg/dL Adenovirus (PCR) See Below A (Not detected) CMV DNA Qual PCR See Below A (Not detected) HSV I DNA PCR See Below A (Not detected) HSV II DNA PCR See Below A (Not detected) Parainfluenza 1 (PCR) See Below A (Not detected) Parainfluenza 2 (PCR) See Below A (Not detected) Parainfluenza 3 (PCR) See Below A (Not detected) RSV (PCR) See Below A (Not detected) Rhinovirus (PCR) See Below A (Not detected) SARS-CoV-2 (PCR) See Below A (Not detected) Enterovirus PCR See Below A (Not detected) Influenza Type A (PCR) See Below A (Not detected) Influenza Type B (PCR) See Below A (Not detected) 06/02/24 06/02/24 06/02/24 Range/Units :21 06: 07: WBC 28.0 H (3.8-10.6) k/uL MCV 101.4 H (80.0-100.0) fL MCHC 30.0 L (31.0-37.0) g/dL RDW 17.0 H (11.5-15.5) % Potassium (3.5-5.1) mmol/L Carbon Dioxide (22-30) mmol/L Creatinine 0.39 L (0.52-1.04) mg/dL POC Glucose (mg/dL) 65 L (70-110) mg/dL Calcium (8.4-10.2) mg/dL Adenovirus (PCR) (Not detected) CMV DNA Qual PCR (Not detected) HSV I DNA PCR (Not detected) HSV II DNA PCR (Not detected) Parainfluenza 1 (PCR) (Not detected) Parainfluenza 2 (PCR) (Not detected) Parainfluenza 3 (PCR) (Not detected) RSV (PCR) (Not detected) Rhinovirus (PCR) (Not detected) SARS-CoV-2 (PCR) (Not detected) Enterovirus PCR (Not detected) Influenza Type A (PCR) (Not detected) Influenza Type B (PCR) (Not detected) 06/02/24 06/02/24 Range/Units 07:26 11:52 WBC (3.8-10.6) k/uL MCV (80.0-100.0) fL MCHC (31.0-37.0) g/dL RDW (11.5-15.5) % Potassium 3.4 L (3.5-5.1) mmol/L Carbon Dioxide 34 H (22-30) mmol/L Creatinine 0.38 L (0.52-1.04) mg/dL POC Glucose (mg/dL) 111 H (70-110) mg/dL Calcium 8.0 L (8.4-10.2) mg/dL Adenovirus (PCR) (Not detected) CMV DNA Qual PCR (Not detected) HSV I DNA PCR (Not detected) HSV II DNA PCR (Not detected) Parainfluenza 1 (PCR) (Not detected) Parainfluenza 2 (PCR) (Not detected) Parainfluenza 3 (PCR) (Not detected) RSV (PCR) (Not detected) Rhinovirus (PCR) (Not detected) SARS-CoV-2 (PCR) (Not detected) Enterovirus PCR (Not detected) Influenza Type A (PCR) (Not detected) Influenza Type B (PCR) (Not detected) Assessment and Plan Plan: Acute hypoxic respiratory failure, requiring intubation, and mechanical ventilation, May 26, 2024. The patient was extubated on 05/29/2024 without any major difficulties and the patient is currently on 11 L of O2 nasal cannula. Acute left lung pneumonia/empyema with a loculated left-sided pleural effusion. Pleural fluid was positive for alphahemolytic strep and patient has a likely streptococcal pneumonia with secondary empyema. The patient has residual pocket of a empyema in the left lung base. Will consult interventional radiology for the pigtail catheter insertion. Overall findings on the CAT scan of the chest has improved. Residual consolidation of the left lung base. Repeat chest x-ray from earlier this morning shows a large loculated pocket of empyema in the left lung and the patient is going to undergo a pigtail catheter insertion. loculated left-sided pleural effusion representing a complicated parapneumonic effusion/empyema. The patient had also significant consolidation/atelectasis of the left lung, the pleural fluid cultures have been positive for hemolytic strep. The patient has persistent loculation. CAT scan of the chest was reviewed and interventional radiology was consulted. S/P bronchoscopy, with BAL, brushings, biopsies, left lower lobe. The airways are patent and the patient's cultures are negative S/P left-sided thoracentesis, with 1.5 L of fluid removed, May 27, 2024. There is residual loculated left-sided pleural effusion on today's chest x-ray. Severe leukocytosis, white cell count remains elevated. History of ongoing tobacco use with nicotine addiction. History of hypertension. History of hyperlipidemia. History of fibromyalgia. History of migraine cephalgia. History of ulcerative colitis. History of anxiety/depression. Paroxysmal atrial fibrillation current rhythm is sinus and the patient is off the Cardizem drip. Plan Overall condition is stable Interval worsening in oxygenation with oxygen flow being at 11 L/min for now. Consult interventional radiology for pigtail catheter insertion/possible drainage of the loculated empyema in the left lung base. Procedure is going to be done today. This may need to also be followed up by thrombolytic administration through the pigtail catheter. Daily chest x-rays White cell count is improving and will continue monitor the white cell count, repeat labs will be obtained for tomorrow. Monitor the procalcitonin level which is downtrending continue IV antibiotics and switch this patient to 2 g of Rocephin every 24 hours Continue Solu-Medrol 40 mg of IV every 12 hours. Hemodynamically stable on no pressors Condition is stable and will continue to follow.
[2024-06-02] MEDS: POTASSIUM CHLORIDE ER 20 MEQ TAB.ER PO STA (14:51)
[2024-06-02 16:49] LABS: Glucose,Whole Blood 210 mg/dL (70-110)
[2024-06-02] MEDS: METOPROLOL TARTRATE 50 MG TAB PO STA (17:11)
[2024-06-02 19:41] LABS: Glucose,Whole Blood 152 mg/dL (70-110)
[2024-06-02] MEDS: APIXABAN 5 MG TAB PO SCH (20:33)
[2024-06-02] MEDS: METOPROLOL TARTRATE 25 MG TAB PO SCH (20:42)
[2024-06-03 05:58] LABS: Glucose,Whole Blood 118 mg/dL (70-110)
[2024-06-03] MEDS: HYDROmorphone 1 MG/ML 1 ML SYRINGE IVP PRN (09:03)
[2024-06-03] MEDS: DORNASE ALFA 5 MG in SODIUM CHLORIDE 0.9% 50 ML IRRIGATION ONE (09:15)
[2024-06-03] MEDS: ALTEPLASE 10 MG in SODIUM CHLORIDE 0.9% 50 ML IRRIGATION ONE (09:15)
--- NOTE | 2024-06-03 10:31 | XR ---
EXAMINATION TYPE: XR chest 1V DATE OF EXAM: 06/03/2024 4:59 AM CLINICAL INDICATION:Female, 63 years old with history of Empyema; [facility] COMPARISON: 06/02/2024 TECHNIQUE: XR chest 1V Portable AP radiograph of the chest.. FINDINGS: Pigtail catheter has been placed on the left, draining the large left-sided loculated pleural fluid c ollection present before, with small residual. Small volume pneumothorax is suggested. Left upper lung appears partially reexpanded. Diffuse infiltrate throughout the left lung, consolidat harmony and pleural opacities in the left greater than right lung base, and patchy airspace disease on th e right again demonstrated. Heart size is indeterminate but likely at least mildly enlarged. No acute bony abnormalities. IMPRESSION: 1. Significant reduction in size of the large left-sided pleural fluid collection, possibly empyema, status post placement of a pigtail drainage catheter. 2. Small left pneumothorax. 3. Diffuse pulmonary infiltrates and atelectasis with left greater than right basilar pleural effusio ns, similar to prior.
--- NOTE | 2024-06-03 11:10 | P.PN ---
Subjective This is a pleasant 63 years old female with past medical history of multiple medical problems including hypertension, hyperlipidemia, degenerative disc disease, fibromyalgia, multiple sclerosis, anxiety and depression. Patient presents because of worsening dyspnea for 2 days. Patient has a known case of bronchitis which is chronic and there is a 4 reported at home about 3 days prior to arrival to the hospital. 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 Patient oxygen requirement went up to 6 L/min and was getting worse so one-time dose of IV Lasix provided and she was placed on BiPAP, she could tolerated only for 10 minutes and then she started becoming tachycardic and tachypneic with a breathing rate between 40s to 50s. She was hypoxic diaphoretic, sweating and pale. Another A-team was called and patient was moved to the ICU where she got emergent intubated. Staff tried to call the son and left a message I called the son myself Mr. Jefferson at [phone] and left a message to call back. Information was obtained from staff and medical record. Patient was afebrile, on admission She has significant worsening leukocytosis up to 40,000, hemoglobin dropped to 8.5. Platelet count were up to 561 . Liver enzymes mildly elevated. D-dimer was elevated 5.5 and CTA of the chest was obtained showing significant abnormalities : No pulmonary embolism, large left pleural effusion, loculated with complete left lung collapse with possible splenic involvement and enlarged mediastinal lymphadenopathy findings suspicious for malignancy 05/27/2024 Patient got extubated yesterday Patient today was still drowsy lethargic somewhat confused and very weak. She has large pleural effusion and she underwent thoracocentesis today with 1.5 of pleural fluid aspirated and sent for studies. Her WBC jumped up to 73 K and hemoglobin down to 6.6. As such her IV vancomycin continued, IV cefepime added and patient received 1 unit of blood transfusion today Patient also kept on IV Solu-Medrol and Ringer lactate at 100 mL/h ProCalcitonin is elevated 6.7%. 05/28/2024 Patient remains in the ICU, it looks like she was intubated the night before She remains on IV Solu-Medrol and broad-spectrum antibiotic with IV vancomycin and cefepime. No IV fluids running. No anticoagulation because of the bleeding. Hemoglobin improved 6.6 up to 7.5 Leukocytosis improving 73 down to 48 05/29/24 Patient remains in the ICU intubated and sedated, She is still getting broad-spectrum antibiotic with IV vancomycin and cefepime She remains on IV Solu-Medrol Chest x-ray showing increased haziness on the left side lung and both basal areas more on the left side. 05/31/2024 Patient breathing is better today, she talks freely Has frequent bowel movement not sure if his diarrhea about 3 to 4/day However her main problem is the breathing and the pneumonia looks better but it is complicated empyema Interventional radiologist has been consulted for possible pigtail tube insertion. 06/01/24 pt states Breathing is better, currently she is on 4 L, still has some decreased air entry on the left side. She has recent diarrhea controlled with Lomotil She has significant leukocytosis yesterday but is improving, IV Solu-Medrol lowered to 40 mg twice daily Repeat WBC from today is pending She remains on ceftriaxone based on culture results showing alphahemolytic Streptococcus. 06/02/24 Patient oxygen requirement went up from 4 L/min up to 14 L/min Patient went down for IR for pigtail placement Patient still complaining from dyspnea. She has bilateral crepitation Labs showing leukocytosis 28,000, hemoglobin 8.3 She remains on ceftriaxone and IV Solu-Medrol 40 mg and IV Protonix Objective - Vital Signs Vital signs: Vital Signs Temp 98.2 F 06/02/24 07:50 Pulse 92 06/02/24 08:44 Resp 21 06/02/24 07:50 BP 124/67 06/02/24 07:50 Pulse Ox 94 L 06/02/24 07:50 FiO2 40 05/29/24 16:00 Intake & Output 06/01/24 06/02/24 06/02/24 18:59 06:59 18:59 Intake Total 378 20 10 Balance 378 20 10 Weight 58.6 kg Intake: IV 20 20 10 Invasive Line 6 20 20 10 Oral 358 Other: # Voids 2 1 # Bowel Movements 1 ABP, PAP, CO, CI - Last Documented Arterial Blood Pressure 121/88 - Exam -GENERAL: The patient is awake but very weak and lethargic HEENT: Pupils are round and equally reacting to light. EOMI. No scleral icterus. No conjunctival pallor. Normocephalic, atraumatic. No pharyngeal erythema. No thyromegaly. CARDIOVASCULAR: S1 and S2 present. No murmurs, rubs, or gallops. PULMONARY: Chest is clear to auscultation, no wheezing , no crackles. ABDOMEN: Soft, nontender, nondistended, normoactive bowel sounds. No palpable organomegaly. MUSCULOSKELETAL: No joint swelling or deformity. EXTREMITIES: No cyanosis, clubbing, or pedal edema. NEUROLOGICAL: Gross neurological examination did not reveal any focal deficits. SKIN: No rashes. no petechiae. - Labs CBC & Chem 7: 06/02/24 07:26 06/02/24 07:26 Labs: Abnormal Lab Results - Last 24 Hours (Table) 06/01/24 06/01/24 06/01/24 Range/Units 11:48 16:39 20:06 Creatinine (0.52-1.04) mg/dL POC Glucose (mg/dL) 160 H 125 H 135 H (70-110) mg/dL 06/02/24 06/02/24 Range/Units 06:24 07:26 Creatinine 0.39 L (0.52-1.04) mg/dL POC Glucose (mg/dL) 65 L (70-110) mg/dL Assessment and Plan Assessment: Large loculated left pleural effusion with associated complete collapse of the left lung with mediastinal lymphadenopathy suspicious for malignancy is high. Also there is involvement of the spleen through rate controlled but no anticoagulation diaphragm. Status post thoracocentesis on 05/27 with 1.5 L removed. S/P bronchoscopy, with BAL, brushings, biopsies, left lower lobe. Severe acute hypoxic respiratory failure, present on admission. Requiring intubation and mechanical ventilation. Acute COPD exacerbation Severe leukocytosis with findings above pneumonia is highly suspected. worsening anemia requiring 1 unit of blood transfusion on 05/27 New onset A-fib and RVR, currently rate controlled but no anticoagulation for severe anemia Hypertension Hyperlipidemia Degenerative disc disease Fibromyalgia Multiple sclerosis Anxiety and depression Plan: Patient transferred to the general medical floor Follow-up respiratory culture S/p thoracocentesis and follow-up pleural fluid show septic workup pneumonia infection Remains on IV Solu-Medrol Continue with broad-spectrum antibiotics with vancomycin and cefepime Follow-up blood culture Cardiology on the case for A-fib RVR but no anticoagulation for anemia Pulmonary, cardiology and hematology/oncology consult Labs and medication were reviewed.. Continue same treatment. Continue with symptomatic treatment. Resume home medication. Monitor labs and vitals. DVT and GI prophylaxis. Further recommendations as per clinical course of the patient DVT prophylaxis:no Subcutaneous heparin GI Prophylaxis: Pepcid Prognosis is guarded
[2024-06-03 11:16] LABS: Anisocytosis Slight; HCT 29.5 % (34.0-46.0); Hypochromasia Moderate; MCH 31.1 pg (25.0-35.0); MCV 100.3 fL (80.0-100.0); Macrocytosis Slight; Mean Platelet Volume 9.7; Platelet Count 198 k/uL (150-450); RBC 2.94 m/uL (3.80-5.40); RDW 17.1 % (11.5-15.5); WBC 16.2 k/uL (3.8-10.6)
--- NOTE | 2024-06-03 11:16 | P.PN ---
Subjective This is a pleasant 63 years old female with past medical history of multiple medical problems including hypertension, hyperlipidemia, degenerative disc disease, fibromyalgia, multiple sclerosis, anxiety and depression. Patient presents because of worsening dyspnea for 2 days. Patient has a known case of bronchitis which is chronic and there is a 4 reported at home about 3 days prior to arrival to the hospital. 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 Patient oxygen requirement went up to 6 L/min and was getting worse so one-time dose of IV Lasix provided and she was placed on BiPAP, she could tolerated only for 10 minutes and then she started becoming tachycardic and tachypneic with a breathing rate between 40s to 50s. She was hypoxic diaphoretic, sweating and pale. Another A-team was called and patient was moved to the ICU where she got emergent intubated. Staff tried to call the son and left a message I called the son myself Mr. Jefferson at [phone] and left a message to call back. Information was obtained from staff and medical record. Patient was afebrile, on admission She has significant worsening leukocytosis up to 40,000, hemoglobin dropped to 8.5. Platelet count were up to 561 . Liver enzymes mildly elevated. D-dimer was elevated 5.5 and CTA of the chest was obtained showing significant abnormalities : No pulmonary embolism, large left pleural effusion, loculated with complete left lung collapse with possible splenic involvement and enlarged mediastinal lymphadenopathy findings suspicious for malignancy 05/27/2024 Patient got extubated yesterday Patient today was still drowsy lethargic somewhat confused and very weak. She has large pleural effusion and she underwent thoracocentesis today with 1.5 of pleural fluid aspirated and sent for studies. Her WBC jumped up to 73 K and hemoglobin down to 6.6. As such her IV vancomycin continued, IV cefepime added and patient received 1 unit of blood transfusion today Patient also kept on IV Solu-Medrol and Ringer lactate at 100 mL/h ProCalcitonin is elevated 6.7%. 05/28/2024 Patient remains in the ICU, it looks like she was intubated the night before She remains on IV Solu-Medrol and broad-spectrum antibiotic with IV vancomycin and cefepime. No IV fluids running. No anticoagulation because of the bleeding. Hemoglobin improved 6.6 up to 7.5 Leukocytosis improving 73 down to 48 05/29/24 Patient remains in the ICU intubated and sedated, She is still getting broad-spectrum antibiotic with IV vancomycin and cefepime She remains on IV Solu-Medrol Chest x-ray showing increased haziness on the left side lung and both basal areas more on the left side. 05/31/2024 Patient breathing is better today, she talks freely Has frequent bowel movement not sure if his diarrhea about 3 to 4/day However her main problem is the breathing and the pneumonia looks better but it is complicated empyema Interventional radiologist has been consulted for possible pigtail tube insertion. 06/01/24 pt states Breathing is better, currently she is on 4 L, still has some decreased air entry on the left side. She has recent diarrhea controlled with Lomotil She has significant leukocytosis yesterday but is improving, IV Solu-Medrol lowered to 40 mg twice daily Repeat WBC from today is pending She remains on ceftriaxone based on culture results showing alphahemolytic Streptococcus. 06/02/24 Patient oxygen requirement went up from 4 L/min up to 14 L/min Patient went down for IR for pigtail placement Patient still complaining from dyspnea. She has bilateral crepitation Labs showing leukocytosis 28,000, hemoglobin 8.3 She remains on ceftriaxone and IV Solu-Medrol 40 mg and IV Protonix 06/03/2024 Patient is status post rest left upper chest pigtail placement yesterday. Today's postop day #1 Repeat chest x-ray looks catheter in place and there is significant reduction in the size of the fluid collection most likely empyema. She remains on 8 L oxygen this morning lowered to 5 L compared to 4 L yesterday. No significant tachypnea. No chest pain Patient with Eliquis resumed last night after the procedure. She is on ceftriaxone. Patient also on IV Solu-Medrol 40 mg Objective - Vital Signs Vital signs: Vital Signs Temp 98.1 F 06/03/24 08:26 Pulse 91 06/03/24 09:55 Resp 20 06/03/24 09:55 BP 101/64 06/03/24 08:26 Pulse Ox 95 06/03/24 09:41 FiO2 40 05/29/24 16:00 Intake & Output 06/02/24 06/03/24 06/03/24 18:59 06:59 18:59 Intake Total 602 20 10 Output Total 1050 620 80 Balance -448 -600 -70 Weight 58.6 kg 57.3 kg Intake: IV 20 20 10 Invasive Line 6 20 10 Invasive Line 7 10 10 Oral 582 Output: Chest Tube Drainage 650 220 80 Chest Tube Left Upper 650 220 80 Anterior Chest Urine 400 400 ABP, PAP, CO, CI - Last Documented Arterial Blood Pressure 121/88 - Exam -GENERAL: The patient is awake but very weak and lethargic HEENT: Pupils are round and equally reacting to light. EOMI. No scleral icterus. No conjunctival pallor. Normocephalic, atraumatic. No pharyngeal erythema. No thyromegaly. CARDIOVASCULAR: S1 and S2 present. No murmurs, rubs, or gallops. PULMONARY: Chest is clear to auscultation, no wheezing , no crackles. ABDOMEN: Soft, nontender, nondistended, normoactive bowel sounds. No palpable organomegaly. MUSCULOSKELETAL: No joint swelling or deformity. EXTREMITIES: No cyanosis, clubbing, or pedal edema. NEUROLOGICAL: Gross neurological examination did not reveal any focal deficits. SKIN: No rashes. no petechiae. - Labs CBC & Chem 7: 06/02/24 07:26 06/02/24 07:26 Labs: Abnormal Lab Results - Last 24 Hours (Table) 05/27/24 06/02/24 06/02/24 Range/Units 09:45 07:26 07:26 WBC 28.0 H (3.8-10.6) k/uL MCV 101.4 H (80.0-100.0) fL MCHC 30.0 L (31.0-37.0) g/dL RDW 17.0 H (11.5-15.5) % Potassium 3.4 L (3.5-5.1) mmol/L Carbon Dioxide 34 H (22-30) mmol/L Creatinine 0.38 L (0.52-1.04) mg/dL POC Glucose (mg/dL) (70-110) mg/dL Calcium 8.0 L (8.4-10.2) mg/dL Adenovirus (PCR) See Below A (Not detected) CMV DNA Qual PCR See Below A (Not detected) HSV I DNA PCR See Below A (Not detected) HSV II DNA PCR See Below A (Not detected) Parainfluenza 1 (PCR) See Below A (Not detected) Parainfluenza 2 (PCR) See Below A (Not detected) Parainfluenza 3 (PCR) See Below A (Not detected) RSV (PCR) See Below A (Not detected) Rhinovirus (PCR) See Below A (Not detected) SARS-CoV-2 (PCR) See Below A (Not detected) Enterovirus PCR See Below A (Not detected) Influenza Type A (PCR) See Below A (Not detected) Influenza Type B (PCR) See Below A (Not detected) 06/02/24 06/02/24 06/02/24 Range/Units 11:52 16:47 19:39 WBC (3.8-10.6) k/uL MCV (80.0-100.0) fL MCHC (31.0-37.0) g/dL RDW (11.5-15.5) % Potassium (3.5-5.1) mmol/L Carbon Dioxide (22-30) mmol/L Creatinine (0.52-1.04) mg/dL POC Glucose (mg/dL) 111 H 210 H 152 H (70-110) mg/dL Calcium (8.4-10.2) mg/dL Adenovirus (PCR) (Not detected) CMV DNA Qual PCR (Not detected) HSV I DNA PCR (Not detected) HSV II DNA PCR (Not detected) Parainfluenza 1 (PCR) (Not detected) Parainfluenza 2 (PCR) (Not detected) Parainfluenza 3 (PCR) (Not detected) RSV (PCR) (Not detected) Rhinovirus (PCR) (Not detected) SARS-CoV-2 (PCR) (Not detected) Enterovirus PCR (Not detected) Influenza Type A (PCR) (Not detected) Influenza Type B (PCR) (Not detected) 06/03/24 Range/Units 05:56 WBC (3.8-10.6) k/uL MCV (80.0-100.0) fL MCHC (31.0-37.0) g/dL RDW (11.5-15.5) % Potassium (3.5-5.1) mmol/L Carbon Dioxide (22-30) mmol/L Creatinine (0.52-1.04) mg/dL POC Glucose (mg/dL) 118 H (70-110) mg/dL Calcium (8.4-10.2) mg/dL Adenovirus (PCR) (Not detected) CMV DNA Qual PCR (Not detected) HSV I DNA PCR (Not detected) HSV II DNA PCR (Not detected) Parainfluenza 1 (PCR) (Not detected) Parainfluenza 2 (PCR) (Not detected) Parainfluenza 3 (PCR) (Not detected) RSV (PCR) (Not detected) Rhinovirus (PCR) (Not detected) SARS-CoV-2 (PCR) (Not detected) Enterovirus PCR (Not detected) Influenza Type A (PCR) (Not detected) Influenza Type B (PCR) (Not detected) Microbiology - Last 24 Hours (Table) 06/02/24 11:45 Gram Stain - Preliminary Aspirate Body Fluid Culture - Preliminary 05/26/24 10:00 Fungal Culture - Preliminary Bronchoalviolar Lavage - Left Assessment and Plan Assessment: Large loculated left pleural effusion with associated complete collapse of the left lung with mediastinal lymphadenopathy suspicious for malignancy is high. Also there is involvement of the spleen through rate controlled but no anticoagulation diaphragm. Status post thoracocentesis on 05/27 with 1.5 L removed. S/P bronchoscopy, with BAL, brushings, biopsies, left lower lobe. Severe acute hypoxic respiratory failure, present on admission. Requiring intubation and mechanical ventilation. Acute COPD exacerbation Severe leukocytosis with findings above pneumonia is highly suspected. worsening anemia requiring 1 unit of blood transfusion on 05/27 New onset A-fib and RVR, currently rate controlled but no anticoagulation for severe anemia Hypertension Hyperlipidemia Degenerative disc disease Fibromyalgia Multiple sclerosis Anxiety and depression Plan: Patient transferred to the general medical floor Follow-up respiratory culture S/p thoracocentesis and follow-up pleural fluid show septic workup pneumonia infection Remains on IV Solu-Medrol Continue with broad-spectrum antibiotics with vancomycin and cefepime Follow-up blood culture Cardiology on the case for A-fib RVR but no anticoagulation for anemia Pulmonary, cardiology and hematology/oncology consult Labs and medication were reviewed.. Continue same treatment. Continue with symptomatic treatment. Resume home medication. Monitor labs and vitals. DVT and GI prophylaxis. Further recommendations as per clinical course of the patient DVT prophylaxis: Eliquis GI Prophylaxis: Pepcid Prognosis is guarded
[2024-06-03 11:18] LABS: HGB 9.1 gm/dL (11.4-16.0)
[2024-06-03 11:21] LABS: African American GFR (CKD) >90 (>60 ml/min/1.73 sqM); Anion Gap 1 mmol/L; Blood Urea Nitrogen 10 mg/dL (7-17); Calcium 7.9 mg/dL (8.4-10.2); Carbon Dioxide 32 mmol/L (22-30); Chloride 104 mmol/L (98-107); Glucose 148 mg/dL (74-99); Non-African American GFR(CKD) >90 (>60 ml/min/1.73 sqM); Sodium 137 mmol/L (137-145)
[2024-06-03 11:24] LABS: Potassium 4.1 mmol/L (3.5-5.1)
[2024-06-03 11:28] LABS: Glucose,Whole Blood 150 mg/dL (70-110)
[2024-06-03] MEDS: HYDROcodone/APAP 10-325MG 1 EACH TAB PO PRN (11:56)
--- NOTE | 2024-06-03 12:06 | P.PN ---
Subjective Progress Note Date: 06/03/24 63-year-old female seen this morning in consultation. The patient was seen initially in the emergency department, on May 25. She apparently came in with complaints of shortness of breath, and low saturations. The patient has been treated recently for bronchitis with steroids and antibiotics. This morning, a rapid response was called on this patient, and, the charge nurse called me, to tell me that the patient would benefit from Lasix, and BiPAP. That was done initially, but subsequent to that, another rapid response was called on this patient, and the patient needed to be transferred to the intensive care unit, for intubation and mechanical ventilation. Currently, she is on volume assist- control, rate 20, tidal volume 350, FiO2 100%, PEEP of 5. She is on a Cardizem drip at 10 mg an hour for atrial fibrillation, propofol at 60 mcg/kg/min, and she is receiving some fluid, i.e. saline, at 1 L, as a fluid bolus. Afterwards, she will be switched to lactated Ringer's at 100 cc an hour. She had a an arterial line placed, and a central line placed. We did a right radial arterial line, and a left subclavian triple-lumen catheter. She was intubated by the [employer]. Current labs include a white count of 54.7, hemoglobin 8.7, hematocrit 29.7, and a platelet count of 605,000. Initial blood gases showed a pO2 of 146, pCO2 of 61, and pH is 7.24. The rate was increased from 28 to 24 breaths/min. In addition, the FiO2 was dropped down to 70%. Sodium 138, potassium 4.9, chlorides 102, CO2 28, BUN 18, creatinine 0.45. Glucose is 288. Calcium is 8.9. Lactic acid 1.3. The left chest reveals a pleural effusion, with possible loculations. An ultrasound was ordered. In addition, the patient had bronchoscopy, with airway examination, therapeutic lavage, BAL, brushings left lower lobe, and endobronchial and transbronchial biopsies left lower lobe. Progress note dated May 27, 2024. 63-year-old female seen in consultation yesterday. Please see the note above. The patient developed lopez respiratory failure, and was intubated, yesterday, May 26. She remains on mechanical ventilator. She is on volume assist- control, rate 24, tidal volume 350, FiO2 60%, to be reduced down to 50%, PEEP of 5. Blood gases show pO2 of 112, pCO2 44, pH is 7.37. The patient continues on propofol at 60 mcg/kg/min, norepinephrine at 7 mcg/min, fentanyl at 2 mcg/kg/h, LR at 100 cc an hour. The patient is on vancomycin, and we add cefepime. The patient had a left-sided thoracentesis today. 1.5 L of milky slightly green fluid was removed from the left pleural space. The patient's procalcitonin level is elevated 9.74. Current labs include a white count of 73.5, hemoglobin 6.6, hematocrit 22.2, platelet count 452,000. The patient will get 1 unit of PRBCs. In addition, sodium 139, potassium 4.8, chlorides 108, CO2 21, anion gap 10, BUN 21, creatinine 0.38. Calcium is 8.3. Magnesium is 1.9. Cultures are thus far negative. The postthoracentesis chest x-ray shows an improved left- sided pleural fluid collection, and a small to moderate size left-sided hydropneumothorax. Progress note dated May 28, 2024. 63-year-old female seen in consultation 2 days ago. The patient remains on mechanical ventilator. She is seen today in room 262. She is on volume assist- control, rate 24, tidal volume 350, FiO2 50%, PEEP of 5. Blood gases show pO2 119, pCO2 45, pH is 7.40. The FiO2 will be reduced at 40%. She is sedated with propofol at 65 mcg/kg/min, norepinephrine at 1.2 mcg/min, and fentanyl at 2 mcg/kg/h. She is getting lactated Ringer's at 100 cc an hour, and vital high- protein at 33 cc an hour. She continues on cefepime, and vancomycin. Current laboratory data includes a white count 48.1, hemoglobin 7.5, hematocrit 25.6, and platelet count 382,000. Sodium 140, potassium 4.4, chlorides 111, CO2 26, BUN 24, creatinine 0.42. Glucose is 215. Calcium 8.2. Cultures thus far are negative. That includes bronchoscopy results. Chest x-ray shows a relatively clear right lung. There is some haziness, on the left side, with a left-sided pleural effusion. She did undergo thoracentesis yesterday. On 05/29/2024, seen the patient for a follow-up. This morning, the patient remains intubated on mechanical ventilator. I reviewed the records and the patient came to us with a complicated loculated large left-sided pleural effusion which was drained and the fluid is an exudate with negative cultures. Subsequent chest x-ray from today still showing some loculated left-sided pleural effusion. The patient remains on a combination of antibiotics utilizing cefepime and vancomycin. This morning, the patient remains on propofol running at 60 mcg/kg/min and fentanyl at 2 mcg/kg/h. Patient remains on lactated Ringer at rate of 100 cc an hour. Norepinephrine drip has been discontinued approximately 24 hours ago. She is on assist-control mode of mechanical ventilation at rate of 24, tidal volume of 350, FiO2 of 40% with a PEEP of 5 and a blood gases showing a pH of 7.41 with a pCO2 of 46 and pO2 of 77. The white cell count is down to 31 and the hemoglobin is at 8 with a platelet count of 368. The procalcitonin level is downtrending from 9.7 down to 6.7. The rest of the electrolytes are stable with a BUN of 25 and a creatinine of 0.4 and a serum bicarb of 28. The patient is arousable while being off of sedation. Will check weaning parameters and assess her candidacy for further weaning. The patient is on vital high-protein at rate of 33 cc an hour. Today's evaluation of 05/30/2024, the patient is being seen for a follow-up. The patient was weaned off the mechanical ventilator and the patient was extubated to nasal cannula yesterday without any major difficulties and the patient is currently on 40s of oxygen nasal cannula. The follow-up chest x-ray still showing a persistent left-sided pleural effusion along with loculation. There i s also some increase in small right-sided pleural effusion. The microbial cultures from the pleural fluid came back positive for alpha hemolytic Streptococcus. Antibiotic adjustments will be done accordingly. Hemodynamically stable. No significant chest pain. No discomfort. The patient remains on bronchodilators. The patient remains on IV Solu-Medrol. Blood work from today shows improvement in the white cell count which is currently down to 24 with a hemoglobin of 8.3 and a platelet count of 373, BUN is 24 and a creatinine of 0.4 and a electrolytes are all within normal limits. Awake and alert and communicating and using the incentive spirometer. 05/31/2024, the patient is being seen for a follow-up. The patient is still recovering from an extensive left lung pneumonia that was complicated by empyema and this is likely secondary to streptococcal pneumonia. Her white cell count is improving. Her respiratory status is stable. Hemodynamically stable. The patient is currently on 4 L of oxygen by nasal cannula with a pulse ox of 95%. Meanwhile, a follow-up CAT scan of the chest was done and the patient was found to have a loculated left pleural effusion which has diminished in size. There is still a loculated pocket in the posterior left lung base. Trace left-sided pneumothorax. There is also an ongoing consolidation and areas of scattered groundglass opacities correlating with pneumonia. Small right-sided pleural effusion is also seen. The patient's blood work from today shows a white cell count of 24 with a hemoglobin 8.3 and a platelet count of 373. Electrolytes are all stable and within normal limits. Renal function is also stable. The patient remains on IV antibiotics. The patient remains on IV Rocephin 2 g every 24 hours. Rest of the medications are essentially unchanged. Remains on IV Solu-Medrol 60 mg every 6 hours. 06/01/2024, patient is being seen for a follow-up. The patient feeling well. No specific complaints. She remains on oxygen 4 L/min nasal cannula. No chest pain. No shortness of breath. I reviewed the CAT scan of the chest that was done yesterday and I requested an interventional radiology consultation for the pigtail catheter insertion. Unfortunately, this has not been completed and no IR services are available for this current holiday. I am hoping that this can be completed by tomorrow. Meanwhile, the patient is doing well. The patient remains on antibiotics with IV Rocephin. No new labs from today. Clinically stable. Hemodynamically stable. No pleurisy. No hemoptysis. On today's evaluation of 06/02/2024, the patient is going to undergo a pigtail catheter insertion regarding the loculated pocket of empyema in the left lung base. Case was discussed with interventional radiology. Meanwhile, the patient oxygenation status is getting worse. Earlier this morning, the patient was on 4 L and she was brought up to 14 L and currently she is down to 11 L of oxygen by nasal cannula with a pulse ox of 94%. The patient has no specific complaints. She remains on IV Rocephin. She has been on bronchodilators. She has been on steroids. Her white cell count is currently at 28 with a hemoglobin 11.7 and a platelet count of 279. BUN is 13 with a creatinine of 0.8. Repeat chest x-ray was done today and the patient was found to have a large loculated empyema in the left lung. Small pleural effusion was also noted on the right lung base. Noted the loculation has developed in the left lung compared to the earlier chest x-ray and the patient is going to undergo a pigtail catheter insertion for further drainage. No chest pain. No fever or chills. No other new complaints otherwise for now. On 06/03/2024, the patient is calm and comfortable on 5 L of oxygen by nasal cannula. Pigtail catheter was inserted yesterday and the patient produced approximately 950 cc of pus from the right hemithorax. Follow-up chest x-ray from today shows significant reduction of the left-sided empyema and there is a small left-sided pneumothorax possibly trapped lung. There is some residual consolidation in the lung base bilaterally. Clinically patient is doing well. The white cell count down to 16, hemoglobin 9.1, BUN is 10 with a creatinine of 0.35 and the patient remains on IV Rocephin. No other significant events overnight. She remains on bronchodilators. She remains on steroids. Objective - Vital Signs Vital signs: Vital Signs Temp 98.1 F 06/03/24 08:26 Pulse 92 06/03/24 08:26 Resp 17 06/03/24 08:26 BP 101/64 06/03/24 08:26 Pulse Ox 97 06/03/24 08:26 FiO2 40 05/29/24 16:00 Intake & Output 06/02/24 06/03/24 06/03/24 18:59 06:59 18:59 Intake Total 602 20 Output Total 1050 620 Balance -448 -600 Weight 58.6 kg 57.3 kg Intake: IV 20 20 Invasive Line 6 20 10 Invasive Line 7 10 Oral 582 Output: Chest Tube Drainage 650 220 Chest Tube Left Upper 650 220 Anterior Chest Urine 400 400 ABP, PAP, CO, CI - Last Documented Arterial Blood Pressure 121/88 - Exam No acute distress, currently on 5 L of oxygen by nasal cannula Head exam was generally normal. There was no scleral icterus or corneal arcus. Mucous membranes were moist. HEENT examination is grossly unremarkable. Neck supple. Full range of motion. No adenopathy thyromegaly or neck vein distention. Cardiovascular examination reveals regular rhythm rate. S1-S2 normal. No S3 or S4. No discernible murmur noted. Heart sounds are distant. Lungs reveal bilateral coarse rhonchi. No expiratory wheezes. No crackles. Breath sounds equal. Diminished breath on the left compared to the right. No significant wheezes or rhonchi. The patient has a right-sided pigtail catheter in place and pus is being drained accordingly. Abdomen soft without bowel sounds. No masses or tenderness. Extremities are intact. No cyanosis clubbing or edema. Skin is without rash or lesion. Neurologically, the patient is awake and alert and the patient does not have any focal neurological deficit. Cranial nerves are essentially intact. - Labs CBC & Chem 7: 06/03/24 10:31 06/03/24 10:31 Labs: Abnormal Lab Results - Last 24 Hours (Table) 05/27/24 06/02/24 06/02/24 Range/Units 09:45 07:26 07:26 WBC 28.0 H (3.8-10.6) k/uL MCV 101.4 H (80.0-100.0) fL MCHC 30.0 L (31.0-37.0) g/dL RDW 17.0 H (11.5-15.5) % Potassium 3.4 L (3.5-5.1) mmol/L Carbon Dioxide 34 H (22-30) mmol/L Creatinine 0.38 L (0.52-1.04) mg/dL POC Glucose (mg/dL) (70-110) mg/dL Calcium 8.0 L (8.4-10.2) mg/dL Adenovirus (PCR) See Below A (Not detected) CMV DNA Qual PCR See Below A (Not detected) HSV I DNA PCR See Below A (Not detected) HSV II DNA PCR See Below A (Not detected) Parainfluenza 1 (PCR) See Below A (Not detected) Parainfluenza 2 (PCR) See Below A (Not detected) Parainfluenza 3 (PCR) See Below A (Not detected) RSV (PCR) See Below A (Not detected) Rhinovirus (PCR) See Below A (Not detected) SARS-CoV-2 (PCR) See Below A (Not detected) Enterovirus PCR See Below A (Not detected) Influenza Type A (PCR) See Below A (Not detected) Influenza Type B (PCR) See Below A (Not detected) 06/02/24 06/02/24 06/02/24 Range/Units 11:52 16:47 19:39 WBC (3.8-10.6) k/uL MCV (80.0-100.0) fL MCHC (31.0-37.0) g/dL RDW (11.5-15.5) % Potassium (3.5-5.1) mmol/L Carbon Dioxide (22-30) mmol/L Creatinine (0.52-1.04) mg/dL POC Glucose (mg/dL) 111 H 210 H 152 H (70-110) mg/dL Calcium (8.4-10.2) mg/dL Adenovirus (PCR) (Not detected) CMV DNA Qual PCR (Not detected) HSV I DNA PCR (Not detected) HSV II DNA PCR (Not detected) Parainfluenza 1 (PCR) (Not detected) Parainfluenza 2 (PCR) (Not detected) Parainfluenza 3 (PCR) (Not detected) RSV (PCR) (Not detected) Rhinovirus (PCR) (Not detected) SARS-CoV-2 (PCR) (Not detected) Enterovirus PCR (Not detected) Influenza Type A (PCR) (Not detected) Influenza Type B (PCR) (Not detected) 06/03/24 Range/Units 05:56 WBC (3.8-10.6) k/uL MCV (80.0-100.0) fL MCHC (31.0-37.0) g/dL RDW (11.5-15.5) % Potassium (3.5-5.1) mmol/L Carbon Dioxide (22-30) mmol/L Creatinine (0.52-1.04) mg/dL POC Glucose (mg/dL) 118 H (70-110) mg/dL Calcium (8.4-10.2) mg/dL Adenovirus (PCR) (Not detected) CMV DNA Qual PCR (Not detected) HSV I DNA PCR (Not detected) HSV II DNA PCR (Not detected) Parainfluenza 1 (PCR) (Not detected) Parainfluenza 2 (PCR) (Not detected) Parainfluenza 3 (PCR) (Not detected) RSV (PCR) (Not detected) Rhinovirus (PCR) (Not detected) SARS-CoV-2 (PCR) (Not detected) Enterovirus PCR (Not detected) Influenza Type A (PCR) (Not detected) Influenza Type B (PCR) (Not detected) Microbiology - Last 24 Hours (Table) 06/02/24 11:45 Gram Stain - Preliminary Aspirate Body Fluid Culture - Preliminary 05/26/24 10:00 Fungal Culture - Preliminary Bronchoalviolar Lavage - Left Assessment and Plan Plan: Acute hypoxic respiratory failure, requiring intubation, and mechanical ventilation, May 26, 2024. The patient was extubated on 05/29/2024 without any major difficulties and the patient is currently on 5 L of oxygen by nasal cannula. Acute left lung pneumonia/empyema with a loculated left-sided pleural effusion. Pleural fluid was positive for alphahemolytic strep and patient has a likely streptococcal pneumonia with secondary empyema. The patient has residual pocket of a empyema in the left lung base. Will consult interventional radiology for the pigtail catheter insertion. Overall findings on the CAT scan of the chest has improved. Residual consolidation of the left lung base. Repeat chest x-ray from earlier this morning shows a large loculated pocket of empyema in the left lung and the patient is going to undergo a pigtail catheter insertion. The patient underwent a pigtail catheter insertion on 06/02/2024. Another 950 cc output over 30 was aspirated from the left hemithorax. Chest x-ray shows a small loculated left-sided pneumothorax. Catheter is in good location. loculated left-sided pleural effusion representing a complicated parapneumonic effusion/empyema. The patient had also significant consolidation/atelectasis of the left lung, the pleural fluid cultures have been positive for hemolytic strep. The patient has persistent loculation. CAT scan of the chest was reviewed and interventional radiology was consulted. S/P bronchoscopy, with BAL, brushings, biopsies, left lower lobe. The airways are patent and the patient's cultures are negative S/P left-sided thoracentesis, with 1.5 L of fluid removed, May 27, 2024. There is residual loculated left-sided pleural effusion on today's chest x-ray. Severe leukocytosis, white cell count is improving History of ongoing tobacco use with nicotine addiction. History of hypertension. History of hyperlipidemia. History of fibromyalgia. History of migraine cephalgia. History of ulcerative colitis. History of anxiety/depression. Paroxysmal atrial fibrillation current rhythm is sinus and the patient is off the Cardizem drip. Plan Overall condition is stable Interval worsening in oxygenation with oxygen flow being at 5 L/min for now. Pigtail catheter was inserted and the patient would have a alteplase/dornase treatment in the left hemithorax. This will be infused and output will be monitored. Daily chest x-rays White cell count is improving and will continue monitor the white cell count, repeat labs will be obtained for tomorrow. Monitor the procalcitonin level which is downtrending continue IV antibiotics and switch this patient to 2 g of Rocephin every 24 hours Discontinued IV Solu-Medrol and put the patient on prednisone 20 mg p.o. daily as part of the burst taper. Hemodynamically stable on no pressors Condition is stable and will continue to follow.
[2024-06-03 16:51] LABS: Glucose,Whole Blood 145 mg/dL (70-110)
[2024-06-03 20:24] LABS: Glucose,Whole Blood 129 mg/dL (70-110)
[2024-06-04 06:21] LABS: Glucose,Whole Blood 102 mg/dL (70-110)
[2024-06-04] MEDS ORDERED: HYDROmorphone 1 MG/ML 1 ML SYRINGE IVP PRN (08:11)
[2024-06-04] MEDS: guaiFENesin-DM 100-10MG/5ML 10 ML CUP PO SCH (08:58)
[2024-06-04] MEDS: predniSONE 20 MG TAB PO SCH (08:58)
[2024-06-04 11:53] LABS: Glucose,Whole Blood 139 mg/dL (70-110)
--- NOTE | 2024-06-04 12:15 | P.PN ---
Subjective Progress Note Date: 06/04/24 63-year-old female seen this morning in consultation. The patient was seen initially in the emergency department, on May 25. She apparently came in with complaints of shortness of breath, and low saturations. The patient has been treated recently for bronchitis with steroids and antibiotics. This morning, a rapid response was called on this patient, and, the charge nurse called me, to tell me that the patient would benefit from Lasix, and BiPAP. That was done initially, but subsequent to that, another rapid response was called on this patient, and the patient needed to be transferred to the intensive care unit, for intubation and mechanical ventilation. Currently, she is on volume assist- control, rate 20, tidal volume 350, FiO2 100%, PEEP of 5. She is on a Cardizem drip at 10 mg an hour for atrial fibrillation, propofol at 60 mcg/kg/min, and she is receiving some fluid, i.e. saline, at 1 L, as a fluid bolus. Afterwards, she will be switched to lactated Ringer's at 100 cc an hour. She had a an arterial line placed, and a central line placed. We did a right radial arterial line, and a left subclavian triple-lumen catheter. She was intubated by the [employer] REPRES[employer]IVE. Current labs include a white count of 54.7, hemoglobin 8.7, hematocrit 29.7, and a platelet count of 605,000. Initial blood gases showed a pO2 of 146, pCO2 of 61, and pH is 7.24. The rate was increased from 28 to 24 breaths/min. In addition, the FiO2 was dropped down to 70%. Sodium 138, potassium 4.9, chlorides 102, CO2 28, BUN 18, creatinine 0.45. Glucose is 288. Calcium is 8.9. Lactic acid 1.3. The left chest reveals a pleural effusion, with possible loculations. An ultrasound was ordered. In addition, the patient had bronchoscopy, with airway examination, therapeutic lavage, BAL, brushings left lower lobe, and endobronchial and transbronchial biopsies left lower lobe. Progress note dated May 27, 2024. 63-year-old female seen in consultation yesterday. Please see the note above. The patient developed lopez respiratory failure, and was intubated, yesterday, May 26. She remains on mechanical ventilator. She is on volume assist- control, rate 24, tidal volume 350, FiO2 60%, to be reduced down to 50%, PEEP of 5. Blood gases show pO2 of 112, pCO2 44, pH is 7.37. The patient continues on propofol at 60 mcg/kg/min, norepinephrine at 7 mcg/min, fentanyl at 2 mcg/kg/h, LR at 100 cc an hour. The patient is on vancomycin, and we add cefepime. The patient had a left-sided thoracentesis today. 1.5 L of milky slightly green fluid was removed from the left pleural space. The patient's procalcitonin level is elevated 9.74. Current labs include a white count of 73.5, hemoglobin 6.6, hematocrit 22.2, platelet count 452,000. The patient will get 1 unit of PRBCs. In addition, sodium 139, potassium 4.8, chlorides 108, CO2 21, anion gap 10, BUN 21, creatinine 0.38. Calcium is 8.3. Magnesium is 1.9. Cultures are thus far negative. The postthoracentesis chest x-ray shows an improved left- sided pleural fluid collection, and a small to moderate size left-sided hydropneumothorax. Progress note dated May 28, 2024. 63-year-old female seen in consultation 2 days ago. The patient remains on mechanical ventilator. She is seen today in room 262. She is on volume assist- control, rate 24, tidal volume 350, FiO2 50%, PEEP of 5. Blood gases show pO2 119, pCO2 45, pH is 7.40. The FiO2 will be reduced at 40%. She is sedated with propofol at 65 mcg/kg/min, norepinephrine at 1.2 mcg/min, and fentanyl at 2 mcg/kg/h. She is getting lactated Ringer's at 100 cc an hour, and vital high- protein at 33 cc an hour. She continues on cefepime, and vancomycin. Current laboratory data includes a white count 48.1, hemoglobin 7.5, hematocrit 25.6, and platelet count 382,000. Sodium 140, potassium 4.4, chlorides 111, CO2 26, BUN 24, creatinine 0.42. Glucose is 215. Calcium 8.2. Cultures thus far are negative. That includes bronchoscopy results. Chest x-ray shows a relatively clear right lung. There is some haziness, on the left side, with a left-sided pleural effusion. She did undergo thoracentesis yesterday. On 05/29/2024, seen the patient for a follow-up. This morning, the patient remains intubated on mechanical ventilator. I reviewed the records and the patient came to us with a complicated loculated large left-sided pleural effusion which was drained and the fluid is an exudate with negative cultures. Subsequent chest x-ray from today still showing some loculated left-sided pleural effusion. The patient remains on a combination of antibiotics utilizing cefepime and vancomycin. This morning, the patient remains on propofol running at 60 mcg/kg/min and fentanyl at 2 mcg/kg/h. Patient remains on lactated Ringer at rate of 100 cc an hour. Norepinephrine drip has been discontinued approximately 24 hours ago. She is on assist-control mode of mechanical ventilation at rate of 24, tidal volume of 350, FiO2 of 40% with a PEEP of 5 and a blood gases showing a pH of 7.41 with a pCO2 of 46 and pO2 of 77. The white cell count is down to 31 and the hemoglobin is at 8 with a platelet count of 368. The procalcitonin level is downtrending from 9.7 down to 6.7. The rest of the electrolytes are stable with a BUN of 25 and a creatinine of 0.4 and a serum bicarb of 28. The patient is arousable while being off of sedation. Will check weaning parameters and assess her candidacy for further weaning. The patient is on vital high-protein at rate of 33 cc an hour. Today's evaluation of 05/30/2024, the patient is being seen for a follow-up. The patient was weaned off the mechanical ventilator and the patient was extubated to nasal cannula yesterday without any major difficulties and the patient is currently on 40s of oxygen nasal cannula. The follow-up chest x-ray still showing a persistent left-sided pleural effusion along with loculation. There i s also some increase in small right-sided pleural effusion. The microbial cultures from the pleural fluid came back positive for alpha hemolytic Streptococcus. Antibiotic adjustments will be done accordingly. Hemodynamically stable. No significant chest pain. No discomfort. The patient remains on bronchodilators. The patient remains on IV Solu-Medrol. Blood work from today shows improvement in the white cell count which is currently down to 24 with a hemoglobin of 8.3 and a platelet count of 373, BUN is 24 and a creatinine of 0.4 and a electrolytes are all within normal limits. Awake and alert and communicating and using the incentive spirometer. 05/31/2024, the patient is being seen for a follow-up. The patient is still recovering from an extensive left lung pneumonia that was complicated by empyema and this is likely secondary to streptococcal pneumonia. Her white cell count is improving. Her respiratory status is stable. Hemodynamically stable. The patient is currently on 4 L of oxygen by nasal cannula with a pulse ox of 95%. Meanwhile, a follow-up CAT scan of the chest was done and the patient was found to have a loculated left pleural effusion which has diminished in size. There is still a loculated pocket in the posterior left lung base. Trace left-sided pneumothorax. There is also an ongoing consolidation and areas of scattered groundglass opacities correlating with pneumonia. Small right-sided pleural effusion is also seen. The patient's blood work from today shows a white cell count of 24 with a hemoglobin 8.3 and a platelet count of 373. Electrolytes are all stable and within normal limits. Renal function is also stable. The patient remains on IV antibiotics. The patient remains on IV Rocephin 2 g every 24 hours. Rest of the medications are essentially unchanged. Remains on IV Solu-Medrol 60 mg every 6 hours. 06/01/2024, patient is being seen for a follow-up. The patient feeling well. No specific complaints. She remains on oxygen 4 L/min nasal cannula. No chest pain. No shortness of breath. I reviewed the CAT scan of the chest that was done yesterday and I requested an interventional radiology consultation for the pigtail catheter insertion. Unfortunately, this has not been completed and no IR services are available for this current holiday. I am hoping that this can be completed by tomorrow. Meanwhile, the patient is doing well. The patient remains on antibiotics with IV Rocephin. No new labs from today. Clinically stable. Hemodynamically stable. No pleurisy. No hemoptysis. On today's evaluation of 06/02/2024, the patient is going to undergo a pigtail catheter insertion regarding the loculated pocket of empyema in the left lung base. Case was discussed with interventional radiology. Meanwhile, the patient oxygenation status is getting worse. Earlier this morning, the patient was on 4 L and she was brought up to 14 L and currently she is down to 11 L of oxygen by nasal cannula with a pulse ox of 94%. The patient has no specific complaints. She remains on IV Rocephin. She has been on bronchodilators. She has been on steroids. Her white cell count is currently at 28 with a hemoglobin 11.7 and a platelet count of 279. BUN is 13 with a creatinine of 0.8. Repeat chest x-ray was done today and the patient was found to have a large loculated empyema in the left lung. Small pleural effusion was also noted on the right lung base. Noted the loculation has developed in the left lung compared to the earlier chest x-ray and the patient is going to undergo a pigtail catheter insertion for further drainage. No chest pain. No fever or chills. No other new complaints otherwise for now. On 06/03/2024, the patient is calm and comfortable on 5 L of oxygen by nasal cannula. Pigtail catheter was inserted yesterday and the patient produced approximately 950 cc of pus from the right hemithorax. Follow-up chest x-ray from today shows significant reduction of the left-sided empyema and there is a small left-sided pneumothorax possibly trapped lung. There is some residual consolidation in the lung base bilaterally. Clinically patient is doing well. The white cell count down to 16, hemoglobin 9.1, BUN is 10 with a creatinine of 0.35 and the patient remains on IV Rocephin. No other significant events overnight. She remains on bronchodilators. She remains on steroids. 06/04/2024, I am seeing the patient for a follow-up. The patient is doing well. Patient continues to have active drainage from the pigtail catheter. The catheter drained approximately 730 cc overnight. The patient received a dose of thrombolytic yesterday without any major difficulties. This improve the output from the pigtail catheter. A repeat chest x-ray was done today and the findings are essentially stable. The patient has a stable loculated left-sided pneumothorax. No new labs are available from today. The pleural fluid was again sent for culture. The most recent culture was positive for Streptococcus and the patient is currently on IV Rocephin 2 g every 24 hours. She is awake and alert and communicating. Some limited pain and discomfort over the left chest and the pain is tolerable. She is on 40s of oxygen by nasal cannula with a pulse ox of 97%. Objective - Vital Signs Vital signs: Vital Signs Temp 98.5 F 06/04/24 04:00 Pulse 91 06/04/24 08:29 Resp 18 06/04/24 08:29 BP 117/73 06/04/24 04:00 Pulse Ox 94 L 06/04/24 08:07 FiO2 40 05/29/24 16:00 Intake & Output 06/03/24 06/04/24 06/04/24 18:59 06:59 18:59 Intake Total 500 20 Output Total 730 140 130 Balance -230 -120 -130 Intake: IV 20 20 Invasive Line 7 20 20 Oral 480 Output: Chest Tube Drainage 530 140 130 Chest Tube Left Upper 530 140 130 Anterior Chest Stool 200 Other: # Voids 1 2 ABP, PAP, CO, CI - Last Documented Arterial Blood Pressure 121/88 - Exam No acute distress, currently on 5 L of oxygen by nasal cannula Head exam was generally normal. There was no scleral icterus or corneal arcus. Mucous membranes were moist. HEENT examination is grossly unremarkable. Neck supple. Full range of motion. No adenopathy thyromegaly or neck vein distention. Cardiovascular examination reveals regular rhythm rate. S1-S2 normal. No S3 or S4. No discernible murmur noted. Heart sounds are distant. Lungs reveal bilateral coarse rhonchi. No expiratory wheezes. No crackles. Breath sounds equal. Diminished breath on the left compared to the right. No significant wheezes or rhonchi. The patient has a right-sided pigtail catheter in place and pus is being drained accordingly. Abdomen soft without bowel sounds. No masses or tenderness. Extremities are intact. No cyanosis clubbing or edema. Skin is without rash or lesion. Neurologically, the patient is awake and alert and the patient does not have any focal neurological deficit. Cranial nerves are essentially intact. - Labs CBC & Chem 7: 06/03/24 10:31 06/03/24 10:31 Labs: Abnormal Lab Results - Last 24 Hours (Table) 06/03/24 06/03/24 06/03/24 Range/Units 10:31 10:31 11:27 WBC 16.2 H (3.8-10.6) k/uL RBC 2.94 L (3.80-5.40) m/uL Hgb 9.1 L D (11.4-16.0) gm/dL Hct 29.5 L (34.0-46.0) % MCV 100.3 H (80.0-100.0) fL RDW 17.1 H (11.5-15.5) % Carbon Dioxide 32 H (22-30) mmol/L Creatinine 0.35 L (0.52-1.04) mg/dL Glucose 148 H (74-99) mg/dL POC Glucose (mg/dL) 150 H (70-110) mg/dL Calcium 7.9 L (8.4-10.2) mg/dL 06/03/24 06/03/24 Range/Units 16:49 20:22 WBC (3.8-10.6) k/uL RBC (3.80-5.40) m/uL Hgb (11.4-16.0) gm/dL Hct (34.0-46.0) % MCV (80.0-100.0) fL RDW (11.5-15.5) % Carbon Dioxide (22-30) mmol/L Creatinine (0.52-1.04) mg/dL Glucose (74-99) mg/dL POC Glucose (mg/dL) 145 H 129 H (70-110) mg/dL Calcium (8.4-10.2) mg/dL Microbiology - Last 24 Hours (Table) 06/02/24 11:45 Gram Stain - Preliminary Aspirate Body Fluid Culture - Preliminary Assessment and Plan Plan: Acute hypoxic respiratory failure, requiring intubation, and mechanical ventilation, May 26, 2024. The patient was extubated on 05/29/2024 without any major difficulties and the patient is currently on 4 L of oxygen by nasal cannula. Acute left lung pneumonia/empyema with a loculated left-sided pleural effusion. Pleural fluid was positive for alphahemolytic strep and patient has a likely streptococcal pneumonia with secondary empyema. The patient has residual pocket of a empyema in the left lung base. Will consult interventional radiology for the pigtail catheter insertion. Overall findings on the CAT scan of the chest has improved. Residual consolidation of the left lung base. Repeat chest x-ray from earlier this morning shows a large loculated pocket of empyema in the left lung and the patient is going to undergo a pigtail catheter insertion. The patient underwent a pigtail catheter insertion on 06/02/2024. Another 950 cc output was aspirated from the left hemithorax. Subsequently, the patient received alteplase dornase treatment on 06/03/2024 and the patient drained another 700 cc of pleural fluid. The output is active. Chest x-ray shows a small loculated left-sided pneumothorax. Catheter is in good location. loculated left-sided pleural effusion representing a complicated parapneumonic effusion/empyema. The patient had also significant consolidation/atelectasis of the left lung, the pleural fluid cultures have been positive for hemolytic strep. The patient has persistent loculation. CAT scan of the chest was reviewed and interventional radiology was consulted. S/P bronchoscopy, with BAL, brushings, biopsies, left lower lobe. The airways are patent and the patient's cultures are negative S/P left-sided thoracentesis, with 1.5 L of fluid removed, May 27, 2024. There is residual loculated left-sided pleural effusion on today's chest x-ray. Severe leukocytosis, white cell count is improving History of ongoing tobacco use with nicotine addiction. History of hypertension. History of hyperlipidemia. History of fibromyalgia. History of migraine cephalgia. History of ulcerative colitis. History of anxiety/depression. Paroxysmal atrial fibrillation current rhythm is sinus and the patient is off the Cardizem drip. Plan Overall condition is stable Interval worsening in oxygenation with oxygen flow being at r L/min for now. Pigtail catheter was inserted and the patient received alteplase/dornase treatment in the left hemithorax on 06/03/2024. Output is adequate at this point in time. I do not see a need for repeat installations today relation. Chest x- ray findings are stable. Daily chest x-rays White cell count is improving and will continue monitor the white cell count, r epeat labs will be obtained for tomorrow. Monitor the procalcitonin level which is downtrending continue IV antibiotics and switch this patient to 2 g of Rocephin every 24 hours prednisone 20 mg p.o. daily as part of the burst taper. Hemodynamically stable on no pressors Condition is stable and will continue to follow.
[2024-06-04 16:33] LABS: Glucose,Whole Blood 174 mg/dL (70-110)
--- NOTE | 2024-06-04 16:33 | XR ---
EXAMINATION TYPE: XR chest 1V DATE OF EXAM: 06/04/2024 5:18 AM CLINICAL INDICATION:Female, 63 years old with history of Empyema; [facility] COMPARISON: 06/03/2024 and before TECHNIQUE: XR chest 1V Portable AP radiograph of the chest.. FINDINGS: Lines/Tubes/Devices: Pigtail drainage catheter again seen on the left, draining for previously large empyema which is no l onger clearly evident. Heart/mediastinum: Heart size is indeterminate, obscured by the lung opacities. Mediastinum appears grossly stable. Pulmonary vascularity: Not increased, Lungs/Pleura: There is enlarging fluid and gas collection in the left pleural space compatible with h ydropneumothorax, moderate in size with size approximately 30%. Fluid again obscures the left costophrenic angle. Right basilar pleural/parenchymal opacity appears m inimally worsened, as is small airspace opacity at the apex. Musculoskeletal: Degenerative changes of the spine again noted with apex right curvature. No acute karen ny abnormality indicated. Other findings: None. IMPRESSION: 1. Pigtail drainage catheter on the left unchanged in position. This drains a previously large pleur al fluid collection (suggesting empyema). No significant residual is identified. 2. Enlarging left hydropneumothorax, now moderate in size. 3. Slight interval worsening of right lung airspace opacities, and probable small pleural effusion.
[2024-06-04] MEDS: HYDROmorphone 0.5 MG/0.5 ML SYRINGE IVP PRN (17:21)
[2024-06-04 20:23] LABS: Glucose,Whole Blood 128 mg/dL (70-110)
--- NOTE | 2024-06-05 02:59 | P.PN ---
Subjective This is a pleasant 63 years old female with past medical history of multiple medical problems including hypertension, hyperlipidemia, degenerative disc disease, fibromyalgia, multiple sclerosis, anxiety and depression. Patient presents because of worsening dyspnea for 2 days. Patient has a known case of bronchitis which is chronic and there is a 4 reported at home about 3 days prior to arrival to the hospital. Patient currently is in severe respiratory distress and cannot provide information, data reviewer A-team was called for worsening dyspnea. Patient oxygen requirement went up to 6 L/min and was getting worse so one-time dose of IV Lasix provided and she was placed on BiPAP, she could tolerated only for 10 minutes and then she started becoming tachycardic and tachypneic with a breathing rate between 40s to 50s. She was hypoxic diaphoretic, sweating and pale. Another A-team was called and patient was moved to the ICU where she got emergent intubated. Staff tried to call the son and left a message I called the son myself Mr. Jefferson at [phone] and left a message to call back. Information was obtained from staff and medical record. Patient was afebrile, on admission She has significant worsening leukocytosis up to 40,000, hemoglobin dropped to 8.5. Platelet count were up to 561 . Liver enzymes mildly elevated. D-dimer was elevated 5.5 and CTA of the chest was obtained showing significant abnormalities : No pulmonary embolism, large left pleural effusion, loculated with complete left lung collapse with possible splenic involvement and enlarged mediastinal lymphadenopathy findings suspicious for malignancy 05/27/2024 Patient got extubated yesterday Patient today was still drowsy lethargic somewhat confused and very weak. She has large pleural effusion and she underwent thoracocentesis today with 1.5 of pleural fluid aspirated and sent for studies. Her WBC jumped up to 73 K and hemoglobin down to 6.6. As such her IV vancomycin continued, IV cefepime added and patient received 1 unit of blood transfusion today Patient also kept on IV Solu-Medrol and Ringer lactate at 100 mL/h ProCalcitonin is elevated 6.7%. 05/28/2024 Patient remains in the ICU, it looks like she was intubated the night before She remains on IV Solu-Medrol and broad-spectrum antibiotic with IV vancomycin and cefepime. No IV fluids running. No anticoagulation because of the bleeding. Hemoglobin improved 6.6 up to 7.5 Leukocytosis improving 73 down to 48 05/29/24 Patient remains in the ICU intubated and sedated, She is still getting broad-spectrum antibiotic with IV vancomycin and cefepime She remains on IV Solu-Medrol Chest x-ray showing increased haziness on the left side lung and both basal areas more on the left side. 05/31/2024 Patient breathing is better today, she talks freely Has frequent bowel movement not sure if his diarrhea about 3 to 4/day However her main problem is the breathing and the pneumonia looks better but it is complicated empyema Interventional radiologist has been consulted for possible pigtail tube insertion. 06/01/24 pt states Breathing is better, currently she is on 4 L, still has some decreased air entry on the left side. She has recent diarrhea controlled with Lomotil She has significant leukocytosis yesterday but is improving, IV Solu-Medrol lowered to 40 mg twice daily Repeat WBC from today is pending She remains on ceftriaxone based on culture results showing alphahemolytic Streptococcus. 06/02/24 Patient oxygen requirement went up from 4 L/min up to 14 L/min Patient went down for IR for pigtail placement Patient still complaining from dyspnea. She has bilateral crepitation Labs showing leukocytosis 28,000, hemoglobin 8.3 She remains on ceftriaxone and IV Solu-Medrol 40 mg and IV Protonix 06/03/2024 Patient is status post rest left upper chest pigtail placement yesterday. Today's postop day #1 Repeat chest x-ray looks catheter in place and there is significant reduction in the size of the fluid collection most likely empyema. She remains on 8 L oxygen this morning lowered to 5 L compared to 4 L yesterday. No significant tachypnea. No chest pain Patient with Eliquis resumed last night after the procedure. She is on ceftriaxone. Patient also on IV Solu-Medrol 40 mg 06/04/24 Patient with likely pleural effusion on the left side/empyema. S/p thoracocentesis however there was still some particulate therefore IR team consulted tube was placed 2 days ago. There is about 1800 cc of purulent discharge collected so far. Patient flaco link is better currently on 3 L Currently chest pain is slightly worse after Patient is alternating [place] and Dilaudid Objective - Vital Signs Vital signs: Vital Signs Temp 98.5 F 07/07/24 04:00 Pulse 91 06/04/24 08:07 Resp 20 06/04/24 08:07 BP 117/73 06/04/24 04:00 Pulse Ox 94 L 06/04/24 08:07 FiO2 40 05/29/24 16:00 Intake & Output 06/03/24 06/04/24 06/04/24 18:59 06:59 18:59 Intake Total 500 20 Output Total 730 140 Balance -230 -120 Intake: IV 20 20 Invasive Line 7 20 20 Oral 480 Output: Chest Tube Drainage 530 140 Chest Tube Left Upper 530 140 Anterior Chest Stool 200 Other: # Voids 1 2 ABP, PAP, CO, CI - Last Documented Arterial Blood Pressure 121/88 - Exam -GENERAL: The patient is awake but very weak and lethargic HEENT: Pupils are round and equally reacting to light. EOMI. No scleral icterus. No conjunctival pallor. Normocephalic, atraumatic. No pharyngeal erythema. No thyromegaly. CARDIOVASCULAR: S1 and S2 present. No murmurs, rubs, or gallops. PULMONARY: Chest is clear to auscultation, no wheezing , no crackles. ABDOMEN: Soft, nontender, nondistended, normoactive bowel sounds. No palpable organomegaly. MUSCULOSKELETAL: No joint swelling or deformity. EXTREMITIES: No cyanosis, clubbing, or pedal edema. NEUROLOGICAL: Gross neurological examination did not reveal any focal deficits. SKIN: No rashes. no petechiae. - Labs CBC & Chem 7: 06/03/24 10:31 06/03/24 10:31 Labs: Abnormal Lab Results - Last 24 Hours (Table) 06/03/24 06/03/24 06/03/24 Range/Units 10:31 10:31 11:27 WBC 16.2 H (3.8-10.6) k/uL RBC 2.94 L (3.80-5.40) m/uL Hgb 9.1 L D (11.4-16.0) gm/dL Hct 29.5 L (34.0-46.0) % MCV 100.3 H (80.0-100.0) fL RDW 17.1 H (11.5-15.5) % Carbon Dioxide 32 H (22-30) mmol/L Creatinine 0.35 L (0.52-1.04) mg/dL Glucose 148 H (74-99) mg/dL POC Glucose (mg/dL) 150 H (70-110) mg/dL Calcium 7.9 L (8.4-10.2) mg/dL 06/03/24 06/03/24 Range/Units 16:49 20:22 WBC (3.8-10.6) k/uL RBC (3.80-5.40) m/uL Hgb (11.4-16.0) gm/dL Hct (34.0-46.0) % MCV (80.0-100.0) fL RDW (11.5-15.5) % Carbon Dioxide (22-30) mmol/L Creatinine (0.52-1.04) mg/dL Glucose (74-99) mg/dL POC Glucose (mg/dL) 145 H 129 H (70-110) mg/dL Calcium (8.4-10.2) mg/dL Microbiology - Last 24 Hours (Table) 06/02/24 11:45 Gram Stain - Preliminary Aspirate Body Fluid Culture - Preliminary Assessment and Plan Assessment: Large loculated left pleural effusion with associated complete collapse of the left lung with mediastinal lymphadenopathy suspicious for malignancy is high. Also there is involvement of the spleen through rate controlled but no anticoagulation diaphragm. Status post thoracocentesis on 05/27 with 1.5 L removed. S/P bronchoscopy, with BAL, brushings, biopsies, left lower lobe. Severe acute hypoxic respiratory failure, present on admission. Requiring intubation and mechanical ventilation. Acute COPD exacerbation Severe leukocytosis with findings above pneumonia is highly suspected. worsening anemia requiring 1 unit of blood transfusion on 05/27 New onset A-fib and RVR, currently rate controlled but no anticoagulation for severe anemia Hypertension Hyperlipidemia Degenerative disc disease Fibromyalgia Multiple sclerosis Anxiety and depression Plan: Continue with pigtail to Follow-up respiratory culture S/p thoracocentesis and follow-up pleural fluid show septic workup pneumonia infection IV Solu-Medrol switched to prednisone Continue with antibiotics with ceftriaxone as sputum culture growing Streptococcus Cardiology on the case for A-fib RVR but no anticoagulation for anemia Pulmonary, cardiology and hematology/oncology consult Labs and medication were reviewed.. Continue same treatment. Continue with symptomatic treatment. Resume home medication. Monitor labs and vitals. DVT and GI prophylaxis. Further recommendations as per clinical course of the patient DVT prophylaxis: Eliquis GI Prophylaxis: Pepcid Prognosis is guarded
[2024-06-05 06:23] LABS: Glucose,Whole Blood 126 mg/dL (70-110)
--- NOTE | 2024-06-05 10:51 | XR ---
EXAMINATION TYPE: XR chest 1V DATE OF EXAM: 06/05/2024 COMPARISON: 06/04/2024 INDICATION: Pneumothorax, empyema TECHNIQUE: Single frontal view of the chest is obtained. FINDINGS: The heart size is normal. The pulmonary vasculature is normal. Mild infiltrates at the right base. A minimal right pleural effusion is present. A moderate left pleu ral effusion or fluid collection may be at the left base. There is a moderate size left pneumothorax, this appears slightly smaller than the comparison study. Chest tube is present in this region on the left. IMPRESSION: 1. Moderate left pneumothorax, diminished from comparison. Left-sided chest tube is present. 2. Moderate stable-appearing left and minimal right pleural fluid collections
[2024-06-05 12:11] LABS: Glucose,Whole Blood 120 mg/dL (70-110)
--- NOTE | 2024-06-05 13:40 | P.PN ---
Subjective Progress Note Date: 06/05/24 Principal diagnosis: Acute hypoxic respiratory failure secondary to pneumonia/empyema with loculated left-sided pleural effusion 63-year-old female seen this morning in consultation. The patient was seen initially in the emergency department, on May 25. She apparently came in with complaints of shortness of breath, and low saturations. The patient has been treated recently for bronchitis with steroids and antibiotics. This morning, a rapid response was called on this patient, and, the charge nurse called me, to tell me that the patient would benefit from Lasix, and BiPAP. That was done initially, but subsequent to that, another rapid response was called on this pa tient, and the patient needed to be transferred to the intensive care unit, for intubation and mechanical ventilation. Currently, she is on volume assist- control, rate 20, tidal volume 350, FiO2 100%, PEEP of 5. She is on a Cardizem drip at 10 mg an hour for atrial fibrillation, propofol at 60 mcg/kg/min, and she is receiving some fluid, i.e. saline, at 1 L, as a fluid bolus. Afterwards, she will be switched to lactated Ringer's at 100 cc an hour. She had a an arterial line placed, and a central line placed. We did a right radial arterial line, and a left subclavian triple-lumen catheter. She was intubated by the [employer]. Current labs include a white count of 54.7, hemoglobin 8.7, hematocrit 29.7, and a platelet count of 605,000. Initial blood gases showed a pO2 of 146, pCO2 of 61, and pH is 7.24. The rate was increased from 28 to 24 breaths/min. In addition, the FiO2 was dropped down to 70%. Sodium 138, potassium 4.9, chlorides 102, CO2 28, BUN 18, creatinine 0.45. Glucose is 288. Calcium is 8.9. Lactic acid 1.3. The left chest reveals a pleural effusion, with possible loculations. An ultrasound was ordered. In addition, the patient had bronchoscopy, with airway examination, therapeutic lavage, BAL, brushings left lower lobe, and endobronchial and transbronchial biopsies left lower lobe. Progress note dated May 27, 2024. 63-year-old female seen in consultation yesterday. Please see the note above. The patient developed lopez respiratory failure, and was intubated, yesterday, May 26. She remains on mechanical ventilator. She is on volume assist-control , rate 24, tidal volume 350, FiO2 60%, to be reduced down to 50%, PEEP of 5. Blood gases show pO2 of 112, pCO2 44, pH is 7.37. The patient continues on propofol at 60 mcg/kg/min, norepinephrine at 7 mcg/min, fentanyl at 2 mcg/kg/h, LR at 100 cc an hour. The patient is on vancomycin, and we add cefepime. The patient had a left-sided thoracentesis today. 1.5 L of milky slightly green fluid was removed from the left pleural space. The patient's procalcitonin level is elevated 9.74. Current labs include a white count of 73.5, hemoglobin 6.6, hematocrit 22.2, platelet count 452,000. The patient will get 1 unit of PRBCs. In addition, sodium 139, potassium 4.8, chlorides 108, CO2 21, anion gap 10, BUN 21, creatinine 0.38. Calcium is 8.3. Magnesium is 1.9. Cultures are thus far negative. The postthoracentesis chest x-ray shows an improved left- sided pleural fluid collection, and a small to moderate size left-sided hydropneumothorax. Progress note dated May 28, 2024. 63-year-old female seen in consultation 2 days ago. The patient remains on mechanical ventilator. She is seen today in room 262. She is on volume assist- control, rate 24, tidal volume 350, FiO2 50%, PEEP of 5. Blood gases show pO2 119, pCO2 45, pH is 7.40. The FiO2 will be reduced at 40%. She is sedated with propofol at 65 mcg/kg/min, norepinephrine at 1.2 mcg/min, and fentanyl at 2 mcg/kg/h. She is getting lactated Ringer's at 100 cc an hour, and vital high- protein at 33 cc an hour. She continues on cefepime, and vancomycin. Current laboratory data includes a white count 48.1, hemoglobin 7.5, hematocrit 25.6, and platelet count 382,000. Sodium 140, potassium 4.4, chlorides 111, CO2 26, BUN 24, creatinine 0.42. Glucose is 215. Calcium 8.2. Cultures thus far are negative. That includes bronchoscopy results. Chest x-ray shows a relatively clear right lung. There is some haziness, on the left side, with a left-sided pleural effusion. She did undergo thoracentesis yesterday. On 05/29/2024, seen the patient for a follow-up. This morning, the patient remains intubated on mechanical ventilator. I reviewed the records and the patient came to us with a complicated loculated large left-sided pleural effusion which was drained and the fluid is an exudate with negative cultures. Subsequent chest x-ray from today still showing some loculated left-sided pleural effusion. The patient remains on a combination of antibiotics utilizing cefepime and vancomycin. This morning, the patient remains on propofol running at 60 mcg/kg/min and fentanyl at 2 mcg/kg/h. Patient remains on lactated Ringer at rate of 100 cc an hour. Norepinephrine drip has been discontinued approximately 24 hours ago. She is on assist-control mode of mechanical ventilation at rate of 24, tidal volume of 350, FiO2 of 40% with a PEEP of 5 and a blood gases showing a pH of 7.41 with a pCO2 of 46 and pO2 of 77. The white cell count is down to 31 and the hemoglobin is at 8 with a platelet count of 368. The procalcitonin level is downtrending from 9.7 down to 6.7. The rest of the electrolytes are stable with a BUN of 25 and a creatinine of 0.4 and a serum bicarb of 28. The patient is arousable while being off of sedation. Will check weaning parameters and assess her candidacy for further weaning. The patient is on vital high-protein at rate of 33 cc an hour. Today's evaluation of 05/30/2024, the patient is being seen for a follow-up. The patient was weaned off the mechanical ventilator and the patient was extubated to nasal cannula yesterday without any major difficulties and the patient is currently on 40s of oxygen nasal cannula. The follow-up chest x-ray still showing a persistent left-sided pleural effusion along with loculation. There is also some increase in small right-sided pleural effusion. The microbial cultures from the pleural fluid came back positive for alpha hemolytic Streptococcus. Antibiotic adjustments will be done accordingly. Hemodynamically stable. No significant chest pain. No discomfort. The patient remains on bronchodilators. The patient remains on IV Solu-Medrol. Blood work from today shows improvement in the white cell count which is currently down to 24 with a hemoglobin of 8.3 and a platelet count of 373, BUN is 24 and a creatinine of 0.4 and a electrolytes are all within normal limits. Awake and alert and communicating and using the incentive spirometer. 05/31/2024, the patient is being seen for a follow-up. The patient is still recov ering from an extensive left lung pneumonia that was complicated by empyema and this is likely secondary to streptococcal pneumonia. Her white cell count is improving. Her respiratory status is stable. Hemodynamically stable. The patient is currently on 4 L of oxygen by nasal cannula with a pulse ox of 95%. Meanwhile, a follow-up CAT scan of the chest was done and the patient was found to have a loculated left pleural effusion which has diminished in size. There is still a loculated pocket in the posterior left lung base. Trace left-sided pneumothorax. There is also an ongoing consolidation and areas of scattered groundglass opacities correlating with pneumonia. Small right-sided pleural effusion is also seen. The patient's blood work from today shows a white cell count of 24 with a hemoglobin 8.3 and a platelet count of 373. Electrolytes are all stable and within normal limits. Renal function is also stable. The patient remains on IV antibiotics. The patient remains on IV Rocephin 2 g every 24 hours. Rest of the medications are essentially unchanged. Remains on IV So abbie-Medrol 60 mg every 6 hours. 06/01/2024, patient is being seen for a follow-up. The patient feeling well. No specific complaints. She remains on oxygen 4 L/min nasal cannula. No chest pain. No shortness of breath. I reviewed the CAT scan of the chest that was done yesterday and I requested an interventional radiology consultation for the pigtail catheter insertion. Unfortunately, this has not been completed and no IR services are available for this current holiday. I am hoping that this can be completed by tomorrow. Meanwhile, the patient is doing well. The patient remains on antibiotics with IV Rocephin. No new labs from today. Clinically stable. Hemodynamically stable. No pleurisy. No hemoptysis. On today's evaluation of 06/02/2024, the patient is going to undergo a pigtail catheter insertion regarding the loculated pocket of empyema in the left lung base. Case was discussed with interventional radiology. Meanwhile, the patient oxygenation status is getting worse. Earlier this morning, the patient was on 4 L and she was brought up to 14 L and currently she is down to 11 L of oxygen by nasal cannula with a pulse ox of 94%. The patient has no specific complaints. She remains on IV Rocephin. She has been on bronchodilators. She has been on steroids. Her white cell count is currently at 28 with a hemoglobin 11.7 and a platelet count of 279. BUN is 13 with a creatinine of 0.8. Repeat chest x-ray was done today and the patient was found to have a large loculated empyema in the left lung. Small pleural effusion was also noted on the right lung base. Noted the loculation has developed in the left lung compared to the earlier chest x-ray and the patient is going to undergo a pigtail catheter insertion for further drainage. No chest pain. No fever or chills. No other new complaints otherwise for now. On 06/03/2024, the patient is calm and comfortable on 5 L of oxygen by nasal cannula. Pigtail catheter was inserted yesterday and the patient produced approximately 950 cc of pus from the right hemithorax. Follow-up chest x-ray from today shows significant reduction of the left-sided empyema and there is a small left-sided pneumothorax possibly trapped lung. There is some residual consolidation in the lung base bilaterally. Clinically patient is doing well. The white cell count down to 16, hemoglobin 9.1, BUN is 10 with a creatinine of 0.35 and the patient remains on IV Rocephin. No other significant events overnight. She remains on bronchodilators. She remains on steroids. 06/04/2024, I am seeing the patient for a follow-up. The patient is doing well. Patient continues to have active drainage from the pigtail catheter. The c atheter drained approximately 730 cc overnight. The patient received a dose of thrombolytic yesterday without any major difficulties. This improve the output from the pigtail catheter. A repeat chest x-ray was done today and the findings are essentially stable. The patient has a stable loculated left-sided pneumothorax. No new labs are available from today. The pleural fluid was again sent for culture. The most recent culture was positive for Streptococcus and the patient is currently on IV Rocephin 2 g every 24 hours. She is awake and alert and communicating. Some limited pain and discomfort over the left chest and the pain is tolerable. She is on 40s of oxygen by nasal cannula with a pulse ox of 97%. Patient was evaluated today on 06/05/2024, patient is basically about the same, continues to have a significant amount of drainage seems to be purulent drainage from her left-sided pleural space/empyema, patient remains on antibiotics, she has now a relatively good sized left-sided pneumothorax and I suspect that this is a trapped lung since the pneumothorax seems to be the area where the fluid was present to begin with patient is on 3 L nasal cannula, O2 sat is 95%. Continues to have a pigtail catheter in place. And draining significant amount of fluid. The culture on the fluid came back positive for Streptococcus intermedius, patient did receive lytic therapy, however considering the worsening chest x-ray, I am recommending a l thoracic surgery consultation, wondering if the patient may eventually require decortication clinically, the patient does not seem to be in any distress for Objective - Vital Signs Vital signs: Vital Signs Temp 98.6 F 06/05/24 08:02 Pulse 81 06/05/24 11:56 Resp 18 06/05/24 11:59 BP 130/77 06/05/24 11:56 Pulse Ox 95 06/05/24 11:59 FiO2 40 05/29/24 16:00 Intake & Output 06/04/24 06/05/24 06/05/24 18:59 06:59 18:59 Intake Total 1340 240 118 Output Total 430 170 150 Balance 910 70 -32 Weight 54.6 kg Intake: IV 20 Invasive Line 7 20 Oral 1320 240 118 Output: Chest Tube Drainage 430 170 150 Chest Tube Left Upper 430 170 150 Anterior Chest Other: # Voids 2 2 2 ABP, PAP, CO, CI - Last Documented Arterial Blood Pressure 121/88 - Exam General: The patient is awake and alert, in no distress, and does not appear acutely ill. On 3 L nasal cannula Skin: Skin is warm and dry and no rashes or lesions are noted. Eye: Pupils are equal, round and reactive to light, extra-ocular movements are intact; there is normal conjunctiva bilaterally. Ears, nose, mouth and throat: There are moist mucous membranes and no oral lesions. Neck: The neck is supple, there is no tenderness or JVD. Cardiovascular: There is a regular rate and rhythm. No murmur, rub or gallop is appreciated. Respiratory: Diminished breath sounds at the left base, left-sided pigtail catheter is noted and left-sided pleural VAC is noted with purulent fluid noted in the Pleur-evac. Gastrointestinal: Soft, non-distended, non-tender abdomen without masses or organomegaly noted. There is no rebound or guarding present. Bowel sounds are unremarkable. Back: There is no tenderness to palpation in the midline. There is no obvious deformity. Musculoskeletal: Normal ROM, no tenderness, There is no pedal edema. There is no calf tenderness or swelling. No cords were appreciated. Neurological: CN II-XII intact, Cranial nerves III through XII are intact. There are no obvious motor or sensory deficits. Coordination appears grossly intact. Speech is normal. Psychiatric: Cooperative, appropriate mood & affect, normal judgment. - Labs CBC & Chem 7: 06/03/24 10:31 06/03/24 10:31 Labs: Abnormal Lab Results - Last 24 Hours (Table) 06/04/24 06/04/24 06/05/24 Range/Units 16:32 20:22 06:22 POC Glucose (mg/dL) 174 H 128 H 126 H (70-110) mg/dL 06/05/24 Range/Units 12:10 POC Glucose (mg/dL) 120 H (70-110) mg/dL Microbiology - Last 24 Hours (Table) 06/02/24 11:45 Gram Stain - Preliminary Aspirate Body Fluid Culture - Preliminary 06/02/24 11:45 Anaerobic Culture - Preliminary Aspirate Assessment and Plan Assessment: Impression: Acute hypoxic respiratory failure Acute left lower lobe pneumonia with empyema Loculated left pleural effusion Left-sided pneumothorax, possibly trapped lung Status post bronchoscopy biopsy and BAL with negative malignancy History of left-sided thoracentesis and pigtail catheter placement Leukocytosis secondary to above Benign essential hypertension Tobacco dependence syndrome Dyslipidemia History of fibromyalgia Migraine cephalgia Ulcerative colitis History of generalized anxiety disorder Paroxysmal atrial fibrillation Recommendation: Continue antibiotics Thoracic surgery to see in consultation Continue bronchodilators Continue oxygen and titrate accordingly Cut down on prednisone Will continue to follow. Time with Patient: Less than 30
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
[2024-06-05 16:15] LABS: Glucose,Whole Blood 157 mg/dL (70-110)
[2024-06-05 20:42] LABS: Glucose,Whole Blood 101 mg/dL (70-110)
[2024-06-06 06:06] LABS: Glucose,Whole Blood 113 mg/dL (70-110)
[2024-06-06] MEDS: SODIUM CHLORIDE 0.9% 1,000 ML IV SCH (06:13)
--- NOTE | 2024-06-06 06:16 | P.PN ---
Subjective Progress Note Date: 06/05/24 This is a pleasant 63 years old female with past medical history of multiple medical problems including hypertension, hyperlipidemia, degenerative disc disease, fibromyalgia, multiple sclerosis, anxiety and depression. Patient presents because of worsening dyspnea for 2 days. Patient has a known case of bronchitis which is chronic and there is a 4 reported at home about 3 days prior to arrival to the hospital. Patient currently is in severe respiratory distress and cannot provide information, automation specialist A-team was called for worsening dyspnea. Patient oxygen requirement went up to 6 L/min and was getting worse so one-time dose of IV Lasix provided and she was placed on BiPAP, she could tolerated only for 10 minutes and then she started becoming tachycardic and tachypneic with a breathing rate between 40s to 50s. She was hypoxic diaphoretic, sweating and pale. Another A-team was called and patient was moved to the ICU where she got emergent intubated. Staff tried to call the son and left a message I called the son myself Mr. Jefferson at [phone] and left a message to call back. Information was obtained from staff and medical record. Patient was afebrile, on admission She has significant worsening leukocytosis up to 40,000, hemoglobin dropped to 8.5. Platelet count were up to 561 . Liver enzymes mildly elevated. D-dimer was elevated 5.5 and CTA of the chest was obtained showing significant abnormalities : No pulmonary embolism, large left pleural effusion, loculated with complete left lung collapse with possible splenic involvement and enlarged mediastinal lymphadenopathy findings suspicious for malignancy 05/27/2024 Patient got extubated yesterday Patient today was still drowsy lethargic somewhat confused and very weak. She has large pleural effusion and she underwent thoracocentesis today with 1.5 of pleural fluid aspirated and sent for studies. Her WBC jumped up to 73 K and hemoglobin down to 6.6. As such her IV vancomycin continued, IV cefepime added and patient received 1 unit of blood transfusion today Patient also kept on IV Solu-Medrol and Ringer lactate at 100 mL/h ProCalcitonin is elevated 6.7%. 05/28/2024 Patient remains in the ICU, it looks like she was intubated the night before She remains on IV Solu-Medrol and broad-spectrum antibiotic with IV vancomycin and cefepime. No IV fluids running. No anticoagulation because of the bleeding. Hemoglobin improved 6.6 up to 7.5 Leukocytosis improving 73 down to 48 05/29/24 Patient remains in the ICU intubated and sedated, She is still getting broad-spectrum antibiotic with IV vancomycin and cefepime She remains on IV Solu-Medrol Chest x-ray showing increased haziness on the left side lung and both basal areas more on the left side. 05/31/2024 Patient breathing is better today, she talks freely Has frequent bowel movement not sure if his diarrhea about 3 to 4/day However her main problem is the breathing and the pneumonia looks better but it is complicated empyema Interventional radiologist has been consulted for possible pigtail tube insertion. 06/01/24 pt states Breathing is better, currently she is on 4 L, still has some decreased air entry on the left side. She has recent diarrhea controlled with Lomotil She has significant leukocytosis yesterday but is improving, IV Solu-Medrol lowered to 40 mg twice daily Repeat WBC from today is pending She remains on ceftriaxone based on culture results showing alphahemolytic Streptococcus. 06/02/24 Patient oxygen requirement went up from 4 L/min up to 14 L/min Patient went down for IR for pigtail placement Patient still complaining from dyspnea. She has bilateral crepitation Labs showing leukocytosis 28,000, hemoglobin 8.3 She remains on ceftriaxone and IV Solu-Medrol 40 mg and IV Protonix 06/03/2024 Patient is status post rest left upper chest pigtail placement yesterday. Today's postop day #1 Repeat chest x-ray looks catheter in place and there is significant reduction in the size of the fluid collection most likely empyema. She remains on 8 L oxygen this morning lowered to 5 L compared to 4 L yesterday. No significant tachypnea. No chest pain Patient with Eliquis resumed last night after the procedure. She is on ceftriaxone. Patient also on IV Solu-Medrol 40 mg 06/04/24 Patient with likely pleural effusion on the left side/empyema. S/p thoracocentesis however there was still some particulate therefore IR team consulted tube was placed 2 days ago. There is about 1800 cc of purulent discharge collected so far. Patient breathing is better currently on 3 L Currently chest pain is slightly worse after Patient is alternating Pollock and Dilaudid 06/05/2024 Patient is seen in follow-up today with pulmonary following. Patient continues with chest tube on the left chest wall with significant amount of purulent drainage noted. CT surgery consulted for possible thoracotomy and/or d ecortication. Patient was currently on Eliquis which needs to be held for at least 48 hours with plans on surgical intervention tentatively for 06/07/2024. Patient is afebrile with no reports of worsening chest pain or shortness of breath. Will continue on antibiotics and medication regimen at this time. Recommend PT/OT therapy evaluation and will discuss further with case management once patient is more stable for discharge. Patient has had prolonged hospitalization and would likely benefit from ECF for continued strength and mobility. Review of systems: Constitutional: No reports of fatigue, fever, or chills Cardiovascular: No reports of chest pain or palpitations Respiratory: No reports of worsening shortness of breath or cough GI: No reports of nausea, vomiting, or diarrhea : No reports of dysuria or retention Neurovascular: reports of generalized weakness All medications have been reviewed Physical exam: -GENERAL: The patient is awake, alert and oriented x 3, well-developed, thin built, elderly appearing, ill-appearing HEENT: Pupils are round and equally reacting to light. EOMI. No scleral icterus. No conjunctival pallor. Normocephalic, atraumatic. No pharyngeal erythema. No thyromegaly. CARDIOVASCULAR: S1 and S2 muffled PULMONARY: Diminished breath sounds bilaterally otherwise chest is clear to auscultation, no wheezing , no crackles. ABDOMEN: Soft, nontender, nondistended, normoactive bowel sounds. No palpable organomegaly. MUSCULOSKELETAL: No joint swelling or deformity. EXTREMITIES: No cyanosis, clubbing, or pedal edema. NEUROLOGICAL: Gross neurological examination did not reveal any focal deficits. Diffusely weak SKIN: No rashes. no petechiae. Assessment: Large loculated left pleural effusion with associated complete collapse of the left lung with mediastinal lymphadenopathy suspicious for malignancy is high. Also there is involvement of the spleen through rate controlled but no anticoagulation diaphragm. Status post thoracocentesis on 05/27 with 1.5 L removed. S/P bronchoscopy, with BAL, brushings, biopsies, left lower lobe. Empyema of the left, status post chest tube Severe acute hypoxic respiratory failure, present on admission. Requiring intubation and mechanical ventilation. Acute COPD exacerbation Severe leukocytosis with findings above pneumonia is highly suspected. worsening anemia requiring 1 unit of blood transfusion on 05/27 New onset A-fib and RVR, currently rate controlled but no anticoagulation for severe anemia Hypertension Hyperlipidemia Degenerative disc disease Fibromyalgia Multiple sclerosis Anxiety and depression GI prophylaxis DVT prophylaxis Full code Plan: Continue with pigtail catheter to suction as patient is status postthoracentesis. Cultures thus far been negative and patient is maintained on antibiotics. CT surgery consulted for concerns of continued loculated empyema on the left with plans of further evaluation with possible thoracotomy or decortication. Patient did receive Eliquis and will hold with tentatively scheduled CT surgery on 06/07/2024 Follow-up respiratory culture IV Solu-Medrol switched to prednisone Continue with antibiotics with ceftriaxone as sputum culture growing Streptococcus Cardiology on the case for A-fib RVR but no anticoagulation for anemia as well as surgical intervention on Wednesday Pulmonary, cardiology and hematology/oncology following Recommend PT/OT therapy evaluation and case management consult. Patient has had prolonged hospitalization and will likely require ECF on discharge for continued strength and mobility Due to multiple complex medical issues, prognosis is guarded The impression and plan of care has been dictated by Carol Landaverde, Nurse Practitioner as directed. Dr. Bowen MD I have performed a history and examination and MDM of this patient, discussed the same with the dictator, and agree with the dictator's assessment and plan as written ,documented as a scribe. Based on total visit time, I have performed more than 50% of the visit. Objective - Vital Signs Vital signs: Vital Signs Temp 98.6 F 06/05/24 08:02 Pulse 96 06/05/24 09:31 Resp 18 06/05/24 09:31 BP 123/76 06/05/24 08:02 Pulse Ox 96 06/05/24 08:02 FiO2 40 05/29/24 16:00 Intake & Output 06/04/24 06/05/24 06/05/24 18:59 06:59 18:59 Intake Total 1340 240 118 Output Total 430 170 26 Balance 910 70 92 Weight 54.6 kg Intake: IV 20 Invasive Line 7 20 Oral 1320 240 118 Output: Chest Tube Drainage 430 170 26 Chest Tube Left Upper 430 170 26 Anterior Chest Other: # Voids 2 2 2 ABP, PAP, CO, CI - Last Documented Arterial Blood Pressure 121/88 - Labs CBC & Chem 7: 07/06/24 10:31 06/03/24 10:31 Labs: Abnormal Lab Results - Last 24 Hours (Table) 06/04/24 06/04/24 06/04/24 Range/Units 11:52 16:32 20:22 POC Glucose (mg/dL) 139 H 174 H 128 H (70-110) mg/dL 06/05/24 Range/Units 06:22 POC Glucose (mg/dL) 126 H (70-110) mg/dL Microbiology - Last 24 Hours (Table) 06/02/24 11:45 Gram Stain - Preliminary Aspirate Body Fluid Culture - Preliminary 06/02/24 11:45 Anaerobic Culture - Preliminary Aspirate
--- NOTE | 2024-06-06 07:54 | XR ---
EXAMINATION TYPE: XR chest 1V DATE OF EXAM: 06/06/2024 COMPARISON: 06/05/2024 INDICATION: Empyema, pneumothorax TECHNIQUE: Single frontal view of the chest is obtained. FINDINGS: The heart size is normal. The pulmonary vasculature is somewhat prominent. Right lower lobe infiltrate is present. Small bilateral pleural effusions are present. There is a moderate size pneumothorax. Chest tube is present. This appears stable from comparison. IMPRESSION: 1. Bibasilar infiltrates and small pleural fluid collections, stable from comparison. 2. Stable moderate-sized left thorax with chest tube.
[2024-06-06 10:48] LABS: ALT 20 U/L (4-34); AST 27 U/L (14-36); African American GFR (CKD) >90 (>60 ml/min/1.73 sqM); Albumin 2.5 g/dL (3.5-5.0); Alkaline Phosphatase 82 U/L (38-126); Anion Gap 6 mmol/L; Blood Urea Nitrogen 10 mg/dL (7-17); Calcium 7.8 mg/dL (8.4-10.2); Carbon Dioxide 25 mmol/L (22-30); Chloride 105 mmol/L (98-107); Glucose 141 mg/dL (74-99); Magnesium 1.9 mg/dL (1.6-2.3); Non-African American GFR(CKD) >90 (>60 ml/min/1.73 sqM); Potassium 4.1 mmol/L (3.5-5.1); Sodium 136 mmol/L (137-145); Total Bilirubin 0.3 mg/dL (0.2-1.3); Total Protein 5.1 g/dL (6.3-8.2)
[2024-06-06 11:04] LABS: Anisocytosis Slight; Basophils % (A) 0 %; Eosinophils # (A) 0.2 k/uL (0-0.7); Eosinophils % (A) 1 %; HGB 8.9 gm/dL (11.4-16.0); Hypochromasia Marked; Lymphocytes # (A) 0.5 k/uL (1.0-4.8); Lymphocytes % (A) 3 %; MCH 29.2 pg (25.0-35.0); MCHC 28.7 g/dL (31.0-37.0); MCV 101.6 fL (80.0-100.0); Macrocytosis Moderate; Mean Platelet Volume 9.7; Monocytes # (A) 0.7 k/uL (0-1.0); Monocytes % (A) 4 %; Neutrophils # (A) 16.7 k/uL (1.3-7.7); Neutrophils % (A) 92 %; Platelet Count 347 k/uL (150-450); RBC 3.05 m/uL (3.80-5.40); WBC 18.2 k/uL (3.8-10.6)
[2024-06-06 11:40] LABS: Glucose,Whole Blood 134 mg/dL (70-110)
--- NOTE | 2024-06-06 12:47 | P.PN ---
Subjective Progress Note Date: 06/06/24 Principal diagnosis: Left empyema, left-sided trapped lung after fluid removal, status post left chest pigtail catheter placement by interventional radiology. Past medical history significant for episodes of unresponsiveness, multiple sclerosis followed by Dr. Schwartz, hypertension, hyperlipidemia, fibromyalgia, migraines, ulcerative colitis, lumbar degenerative disc, previous tobacco dependence and anxiety. POD #4 placement of left pigtail catheter placed by interventional radiology for left empyema. The patient was seen and examined in follow-up today June 06, 2024 at her bedside on the third floor cardiac stepdown unit. The patient is currently laying in bed, is awake, alert, oriented x 3 and is in no acute apparent distress. Oxygen saturations are 100% on 3 L nasal cannula and she is achieving 1000 mL on her incentive spirometry with encouragement. Left pigtail catheter remains in place to low continuous wall suction -20 cm H2O. No air leak is present. Draining purulent drainage with 80 mL output in the last 8 hours and 700 mL output in the last 24 hours. She had received 1 dose of pleural space instillation of lytics with significant purulent drainage that was positive for Streptococcus intermedius. She is receiving Rocephin for antibiotic coverage. Due to the patient's trapped lung after drainage of the empyema, she was evaluated by Dr. Castro from cardiothoracic surgery and has been scheduled for a left VATS with decortication, possible left thoracotomy with decortication for tomorrow June 07, 2024. Preoperative testing and preoperative teaching has been completed with the patient. Objective - Vital Signs Vital signs: Vital Signs Temp 98.0 F 06/06/24 08:11 Pulse 82 06/06/24 11:53 Resp 16 06/06/24 11:53 BP 112/73 06/06/24 11:53 Pulse Ox 100 06/06/24 11:53 FiO2 40 05/29/24 16:00 Intake & Output 06/05/24 06/06/24 06/06/24 18:59 06:59 18:59 Intake Total 934 120 180 Output Total 400 110 80 Balance 534 10 100 Weight 54.6 kg 52.4 kg Intake: Oral 934 120 180 Output: Chest Tube Drainage 400 110 80 Chest Tube Left Upper 400 110 80 Anterior Chest Other: # Voids 1 0 1 # Bowel Movements 1 1 ABP, PAP, CO, CI - Last Documented Arterial Blood Pressure 121/88 - Exam CONSTITUTIONAL: Appears comfortable, cooperative, no acute distress, laying in bed on the third floor cardiac stepdown unit. RESPIRATORY: Lungs sounds diminished bilaterally, left greater than right. Respirations symmetrical, nonlabored. Currently on 3 L nasal cannula with oxygen saturation 100%. Able to achieve 1000 mL on her incentive spirometry. Strong cough. CARDIOVASCULAR: S1, S2 present. Regular rate and rhythm, sinus rhythm on telemetry, heart rate 88 bpm. Palpable peripheral pulses bilaterally. No edema present. No calf pain or tenderness noted. SCDs present. GASTROINTESTINAL: Abdomen soft, nontender, nondistended. Active bowel sounds present 4 quadrants. Tolerating diet. GENITOURINARY: Continues to void. INTEGUMENTARY: Skin is warm and dry, no evidence of cyanosis or clubbing. NEUROLOGIC: No focal deficits. MUSKULOSKELETAL: Able to move all extremities, strength equal bilaterally. Generalized weakness. PSYCHIATRIC: Alert and oriented to person place and time, appropriate affect, intact judgment and insight INVASIVE LINES AND TUBES: Left pigtail pleural chest tubes present and connected to wall suction, no air leaks present. Left pleural pigtail chest tube with 80 mL purulent drainage overnight, 700 mL in the last 24 hours. - Allied health notes Allied health notes reviewed: nursing - Labs CBC & Chem 7: 06/06/24 09:59 06/06/24 09:59 Labs: Abnormal Lab Results - Last 24 Hours (Table) 06/05/24 06/06/24 06/06/24 Range/Units 16:14 06:04 09:59 WBC 18.2 H (3.8-10.6) k/uL RBC 3.05 L (3.80-5.40) m/uL Hgb 8.9 L (11.4-16.0) gm/dL Hct 31.0 L (34.0-46.0) % MCV 101.6 H (80.0-100.0) fL MCHC 28.7 L (31.0-37.0) g/dL RDW 17.0 H (11.5-15.5) % Neutrophils # 16.7 H (1.3-7.7) k/uL Lymphocytes # 0.5 L (1.0-4.8) k/uL Sodium (137-145) mmol/L Creatinine (0.52-1.04) mg/dL Glucose (74-99) mg/dL POC Glucose (mg/dL) 157 H 113 H (70-110) mg/dL Calcium (8.4-10.2) mg/dL Total Protein (6.3-8.2) g/dL Albumin (3.5-5.0) g/dL 06/06/24 06/06/24 Range/Units 09:59 11:38 WBC (3.8-10.6) k/uL RBC (3.80-5.40) m/uL Hgb (11.4-16.0) gm/dL Hct (34.0-46.0) % MCV (80.0-100.0) fL MCHC (31.0-37.0) g/dL RDW (11.5-15.5) % Neutrophils # (1.3-7.7) k/uL Lymphocytes # (1.0-4.8) k/uL Sodium 136 L (137-145) mmol/L Creatinine 0.35 L (0.52-1.04) mg/dL Glucose 141 H (74-99) mg/dL POC Glucose (mg/dL) 134 H (70-110) mg/dL Calcium 7.8 L (8.4-10.2) mg/dL Total Protein 5.1 L (6.3-8.2) g/dL Albumin 2.5 L (3.5-5.0) g/dL Microbiology - Last 24 Hours (Table) 06/02/24 11:45 Gram Stain - Final Aspirate Body Fluid Culture - Final 05/27/24 09:45 Fungal Culture - Preliminary Pleural Fluid 05/27/24 09:45 Acid Fast Bacilli Smear - Preliminary Pleural Fluid Acid Fast Bacilli Culture - Preliminary 05/26/24 10:00 Acid Fast Bacilli Smear - Preliminary Bronchoalviolar Lavage - Left Acid Fast Bacilli Culture - Preliminary - Imaging and Cardiology Chest x-ray: report reviewed, image reviewed Assessment and Plan Assessment: Left-sided empyema, status post left chest pigtail catheter placement by interventional radiology and 1 dose of pleural space instillation of lytics Left-sided trapped lung after fluid removal Acute hypoxic respiratory failure, currently on 3 L nasal cannula with oxygen saturations 100% Multiple sclerosis Hypertension Hyperlipidemia Fibromyalgia Previous tobacco dependence Anxiety Paroxysmal atrial fibrillation, initiated on Eliquis, last dose 06/05/2024 Plan: The patient is scheduled for a left VATS with decortication, possible thoracotomy tomorrow. Preoperative teaching has been reinforced with the patient. N.p.o. after midnight Continue to hold Eliquis. Antibiotic management per pulmonary/critical care medicine recommendations. Encourage use of incentive spirometry 10 times every hour while awake. Keep left pigtail pleural catheter in place to low continuous wall suction -20 cm H2O. May disconnect when ambulating or getting up to the bathroom from suction. Once finished ambulating placed back to low continuous wall suction - 20 cm H2O. More recommendations to follow based on patient's clinical course. Time with Patient: Greater than 30
--- NOTE | 2024-06-06 14:25 | P.PN ---
Subjective Progress Note Date: 06/06/24 Principal diagnosis: Acute hypoxic respiratory failure secondary to pneumonia/empyema with loculated left-sided pleural effusion 63-year-old female seen this morning in consultation. The patient was seen initially in the emergency department, on May 25. She apparently came in with complaints of shortness of breath, and low saturations. The patient has been treated recently for bronchitis with steroids and antibiotics. This morning, a rapid response was called on this patient, and, the charge nurse called me, to tell me that the patient would benefit from Lasix, and BiPAP. That was done initially, but subsequent to that, another rapid response was called on this pa tient, and the patient needed to be transferred to the intensive care unit, for intubation and mechanical ventilation. Currently, she is on volume assist- control, rate 20, tidal volume 350, FiO2 100%, PEEP of 5. She is on a Cardizem drip at 10 mg an hour for atrial fibrillation, propofol at 60 mcg/kg/min, and she is receiving some fluid, i.e. saline, at 1 L, as a fluid bolus. Afterwards, she will be switched to lactated Ringer's at 100 cc an hour. She had a an arterial line placed, and a central line placed. We did a right radial arterial line, and a left subclavian triple-lumen catheter. She was intubated by the HR DIRECTOR. Current labs include a white count of 54.7, hemoglobin 8.7, hematocrit 29.7, and a platelet count of 605,000. Initial blood gases showed a pO2 of 146, pCO2 of 61, and pH is 7.24. The rate was increased from 28 to 24 breaths/min. In addition, the FiO2 was dropped down to 70%. Sodium 138, potassium 4.9, chlorides 102, CO2 28, BUN 18, creatinine 0.45. Glucose is 288. Calcium is 8.9. Lactic acid 1.3. The left chest reveals a pleural effusion, with possible loculations. An ultrasound was ordered. In addition, the patient had bronchoscopy, with airway examination, therapeutic lavage, BAL, brushings left lower lobe, and endobronchial and transbronchial biopsies left lower lobe. Progress note dated May 27, 2024. 63-year-old female seen in consultation yesterday. Please see the note above. The patient developed lopez respiratory failure, and was intubated, yesterday, May 26. She remains on mechanical ventilator. She is on volume assist-control , rate 24, tidal volume 350, FiO2 60%, to be reduced down to 50%, PEEP of 5. Blood gases show pO2 of 112, pCO2 44, pH is 7.37. The patient continues on propofol at 60 mcg/kg/min, norepinephrine at 7 mcg/min, fentanyl at 2 mcg/kg/h, LR at 100 cc an hour. The patient is on vancomycin, and we add cefepime. The patient had a left-sided thoracentesis today. 1.5 L of milky slightly green fluid was removed from the left pleural space. The patient's procalcitonin level is elevated 9.74. Current labs include a white count of 73.5, hemoglobin 6.6, hematocrit 22.2, platelet count 452,000. The patient will get 1 unit of PRBCs. In addition, sodium 139, potassium 4.8, chlorides 108, CO2 21, anion gap 10, BUN 21, creatinine 0.38. Calcium is 8.3. Magnesium is 1.9. Cultures are thus far negative. The postthoracentesis chest x-ray shows an improved left- sided pleural fluid collection, and a small to moderate size left-sided hydropneumothorax. Progress note dated May 28, 2024. 63-year-old female seen in consultation 2 days ago. The patient remains on mechanical ventilator. She is seen today in room 262. She is on volume assist- control, rate 24, tidal volume 350, FiO2 50%, PEEP of 5. Blood gases show pO2 119, pCO2 45, pH is 7.40. The FiO2 will be reduced at 40%. She is sedated with propofol at 65 mcg/kg/min, norepinephrine at 1.2 mcg/min, and fentanyl at 2 mcg/kg/h. She is getting lactated Ringer's at 100 cc an hour, and vital high- protein at 33 cc an hour. She continues on cefepime, and vancomycin. Current laboratory data includes a white count 48.1, hemoglobin 7.5, hematocrit 25.6, and platelet count 382,000. Sodium 140, potassium 4.4, chlorides 111, CO2 26, BUN 24, creatinine 0.42. Glucose is 215. Calcium 8.2. Cultures thus far are negative. That includes bronchoscopy results. Chest x-ray shows a relatively clear right lung. There is some haziness, on the left side, with a left-sided pleural effusion. She did undergo thoracentesis yesterday. On 05/29/2024, seen the patient for a follow-up. This morning, the patient remains intubated on mechanical ventilator. I reviewed the records and the patient came to us with a complicated loculated large left-sided pleural effusion which was drained and the fluid is an exudate with negative cultures. Subsequent chest x-ray from today still showing some loculated left-sided pleural effusion. The patient remains on a combination of antibiotics utilizing cefepime and vancomycin. This morning, the patient remains on propofol running at 60 mcg/kg/min and fentanyl at 2 mcg/kg/h. Patient remains on lactated Ringer at rate of 100 cc an hour. Norepinephrine drip has been discontinued approximately 24 hours ago. She is on assist-control mode of mechanical ventilation at rate of 24, tidal volume of 350, FiO2 of 40% with a PEEP of 5 and a blood gases showing a pH of 7.41 with a pCO2 of 46 and pO2 of 77. The white cell count is down to 31 and the hemoglobin is at 8 with a platelet count of 368. The procalcitonin level is downtrending from 9.7 down to 6.7. The rest of the electrolytes are stable with a BUN of 25 and a creatinine of 0.4 and a serum bicarb of 28. The patient is arousable while being off of sedation. Will check weaning parameters and assess her candidacy for further weaning. The patient is on vital high-protein at rate of 33 cc an hour. Today's evaluation of 05/30/2024, the patient is being seen for a follow-up. The patient was weaned off the mechanical ventilator and the patient was extubated to nasal cannula yesterday without any major difficulties and the patient is currently on 40s of oxygen nasal cannula. The follow-up chest x-ray still showing a persistent left-sided pleural effusion along with loculation. There is also some increase in small right-sided pleural effusion. The microbial cultures from the pleural fluid came back positive for alpha hemolytic Streptococcus. Antibiotic adjustments will be done accordingly. Hemodynamically stable. No significant chest pain. No discomfort. The patient remains on bronchodilators. The patient remains on IV Solu-Medrol. Blood work from today shows improvement in the white cell count which is currently down to 24 with a hemoglobin of 8.3 and a platelet count of 373, BUN is 24 and a creatinine of 0.4 and a electrolytes are all within normal limits. Awake and alert and communicating and using the incentive spirometer. 05/31/2024, the patient is being seen for a follow-up. The patient is still recov ering from an extensive left lung pneumonia that was complicated by empyema and this is likely secondary to streptococcal pneumonia. Her white cell count is improving. Her respiratory status is stable. Hemodynamically stable. The patient is currently on 4 L of oxygen by nasal cannula with a pulse ox of 95%. Meanwhile, a follow-up CAT scan of the chest was done and the patient was found to have a loculated left pleural effusion which has diminished in size. There is still a loculated pocket in the posterior left lung base. Trace left-sided pneumothorax. There is also an ongoing consolidation and areas of scattered groundglass opacities correlating with pneumonia. Small right-sided pleural effusion is also seen. The patient's blood work from today shows a white cell count of 24 with a hemoglobin 8.3 and a platelet count of 373. Electrolytes are all stable and within normal limits. Renal function is also stable. The patient remains on IV antibiotics. The patient remains on IV Rocephin 2 g every 24 hours. Rest of the medications are essentially unchanged. Remains on IV So abbie-Medrol 60 mg every 6 hours. 06/01/2024, patient is being seen for a follow-up. The patient feeling well. No specific complaints. She remains on oxygen 4 L/min nasal cannula. No chest pain. No shortness of breath. I reviewed the CAT scan of the chest that was done yesterday and I requested an interventional radiology consultation for the pigtail catheter insertion. Unfortunately, this has not been completed and no IR services are available for this current holiday. I am hoping that this can be completed by tomorrow. Meanwhile, the patient is doing well. The patient remains on antibiotics with IV Rocephin. No new labs from today. Clinically stable. Hemodynamically stable. No pleurisy. No hemoptysis. On today's evaluation of 06/02/2024, the patient is going to undergo a pigtail catheter insertion regarding the loculated pocket of empyema in the left lung base. Case was discussed with interventional radiology. Meanwhile, the patient oxygenation status is getting worse. Earlier this morning, the patient was on 4 L and she was brought up to 14 L and currently she is down to 11 L of oxygen by nasal cannula with a pulse ox of 94%. The patient has no specific complaints. She remains on IV Rocephin. She has been on bronchodilators. She has been on steroids. Her white cell count is currently at 28 with a hemoglobin 11.7 and a platelet count of 279. BUN is 13 with a creatinine of 0.8. Repeat chest x-ray was done today and the patient was found to have a large loculated empyema in the left lung. Small pleural effusion was also noted on the right lung base. Noted the loculation has developed in the left lung compared to the earlier chest x-ray and the patient is going to undergo a pigtail catheter insertion for further drainage. No chest pain. No fever or chills. No other new complaints otherwise for now. On 06/03/2024, the patient is calm and comfortable on 5 L of oxygen by nasal cannula. Pigtail catheter was inserted yesterday and the patient produced approximately 950 cc of pus from the right hemithorax. Follow-up chest x-ray from today shows significant reduction of the left-sided empyema and there is a small left-sided pneumothorax possibly trapped lung. There is some residual consolidation in the lung base bilaterally. Clinically patient is doing well. The white cell count down to 16, hemoglobin 9.1, BUN is 10 with a creatinine of 0.35 and the patient remains on IV Rocephin. No other significant events overnight. She remains on bronchodilators. She remains on steroids. 06/04/2024, I am seeing the patient for a follow-up. The patient is doing well. Patient continues to have active drainage from the pigtail catheter. The c atheter drained approximately 730 cc overnight. The patient received a dose of thrombolytic yesterday without any major difficulties. This improve the output from the pigtail catheter. A repeat chest x-ray was done today and the findings are essentially stable. The patient has a stable loculated left-sided pneumothorax. No new labs are available from today. The pleural fluid was again sent for culture. The most recent culture was positive for Streptococcus and the patient is currently on IV Rocephin 2 g every 24 hours. She is awake and alert and communicating. Some limited pain and discomfort over the left chest and the pain is tolerable. She is on 40s of oxygen by nasal cannula with a pulse ox of 97%. Patient was evaluated today on 06/05/2024, patient is basically about the same, continues to have a significant amount of drainage seems to be purulent drainage from her left-sided pleural space/empyema, patient remains on antibiotics, she has now a relatively good sized left-sided pneumothorax and I suspect that this is a trapped lung since the pneumothorax seems to be the area where the fluid was present to begin with patient is on 3 L nasal cannula, O2 sat is 95%. Continues to have a pigtail catheter in place. And draining significant amount of fluid. The culture on the fluid came back positive for Streptococcus intermedius, patient did receive lytic therapy, however considering the worsening chest x-ray, I am recommending a l thoracic surgery consultation, wondering if the patient may eventually require decortication clinically, the patient does not seem to be in any distress Patient was evaluated 06/06/2024, clinically about the same, patient was seen by thoracic surgery, and now she is scheduled for left thoracotomy with decortication mostly because of her persistent empyema and loculated pleural effusion. And not to mention the patient seems to have a trapped lung. Patient is not improving much with medical therapy, and surgery is strongly recommended patient is on 3 L nasal cannula, hemodynamically stable, does not seem to be in distress, continues to have significant amount of purulent drainage from the left sided chest tube into the Pleur-evac continues to have what seems to be a pneumothorax/trapped lung Objective - Vital Signs Vital signs: Vital Signs Temp 98.0 F 06/06/24 08:11 Pulse 82 06/06/24 11:53 Resp 16 06/06/24 11:53 BP 112/73 06/06/24 11:53 Pulse Ox 100 06/06/24 11:53 FiO2 40 05/29/24 16:00 Intake & Output 06/05/24 06/06/24 06/06/24 18:59 06:59 18:59 Intake Total 934 120 360 Output Total 400 110 380 Balance 534 10 -20 Weight 54.6 kg 52.4 kg Intake: Oral 934 120 360 Output: Chest Tube Drainage 400 110 80 Chest Tube Left Upper 400 110 80 Anterior Chest Urine/Stool Mix 300 Other: # Voids 1 0 1 # Bowel Movements 1 1 ABP, PAP, CO, CI - Last Documented Arterial Blood Pressure 121/88 - Exam General: The patient is awake and alert, in no distress, and does not appear acutely ill. On 3 L nasal cannula Skin: Skin is warm and dry and no rashes or lesions are noted. Eye: Pupils are equal, round and reactive to light, extra-ocular movements are intact; there is normal conjunctiva bilaterally. Ears, nose, mouth and throat: There are moist mucous membranes and no oral lesions. Neck: The neck is supple, there is no tenderness or JVD. Cardiovascular: There is a regular rate and rhythm. No murmur, rub or gallop is appreciated. Respiratory: Diminished breath sounds at the left base, left-sided pigtail catheter is noted and left-sided pleural VAC is noted with purulent fluid noted in the Pleur-evac. Gastrointestinal: Soft, non-distended, non-tender abdomen without masses or organomegaly noted. There is no rebound or guarding present. Bowel sounds are unremarkable. Back: There is no tenderness to palpation in the midline. There is no obvious deformity. Musculoskeletal: Normal ROM, no tenderness, There is no pedal edema. There is no calf tenderness or swelling. No cords were appreciated. Neurological: CN II-XII intact, Cranial nerves III through XII are intact. There are no obvious motor or sensory deficits. Coordination appears grossly intact. Speech is normal. Psychiatric: Cooperative, appropriate mood & affect, normal judgment. - Labs CBC & Chem 7: 06/06/24 09:59 06/06/24 09:59 Labs: Abnormal Lab Results - Last 24 Hours (Table) 06/05/24 06/06/24 06/06/24 Range/Units 16:14 06:04 09:59 WBC 18.2 H (3.8-10.6) k/uL RBC 3.05 L (3.80-5.40) m/uL Hgb 8.9 L (11.4-16.0) gm/dL Hct 31.0 L (34.0-46.0) % MCV 101.6 H (80.0-100.0) fL MCHC 28.7 L (31.0-37.0) g/dL RDW 17.0 H (11.5-15.5) % Neutrophils # 16.7 H (1.3-7.7) k/uL Lymphocytes # 0.5 L (1.0-4.8) k/uL Sodium (137-145) mmol/L Creatinine (0.52-1.04) mg/dL Glucose (74-99) mg/dL POC Glucose (mg/dL) 157 H 113 H (70-110) mg/dL Calcium (8.4-10.2) mg/dL Total Protein (6.3-8.2) g/dL Albumin (3.5-5.0) g/dL 06/06/24 06/06/24 Range/Units 09:59 11:38 WBC (3.8-10.6) k/uL RBC (3.80-5.40) m/uL Hgb (11.4-16.0) gm/dL Hct (34.0-46.0) % MCV (80.0-100.0) fL MCHC (31.0-37.0) g/dL RDW (11.5-15.5) % Neutrophils # (1.3-7.7) k/uL Lymphocytes # (1.0-4.8) k/uL Sodium 136 L (137-145) mmol/L Creatinine 0.35 L (0.52-1.04) mg/dL Glucose 141 H (74-99) mg/dL POC Glucose (mg/dL) 134 H (70-110) mg/dL Calcium 7.8 L (8.4-10.2) mg/dL Total Protein 5.1 L (6.3-8.2) g/dL Albumin 2.5 L (3.5-5.0) g/dL Microbiology - Last 24 Hours (Table) 06/02/24 11:45 Gram Stain - Final Aspirate Body Fluid Culture - Final 05/27/24 09:45 Fungal Culture - Preliminary Pleural Fluid 05/27/24 09:45 Acid Fast Bacilli Smear - Preliminary Pleural Fluid Acid Fast Bacilli Culture - Preliminary 05/26/24 10:00 Acid Fast Bacilli Smear - Preliminary Bronchoalviolar Lavage - Left Acid Fast Bacilli Culture - Preliminary Assessment and Plan Assessment: Impression: Acute hypoxic respiratory failure Acute left lower lobe pneumonia with empyema Loculated left pleural effusion Left-sided pneumothorax, possibly trapped lung Status post bronchoscopy biopsy and BAL with negative malignancy History of left-sided thoracentesis and pigtail catheter placement Leukocytosis secondary to above Benign essential hypertension Tobacco dependence syndrome Dyslipidemia History of fibromyalgia Migraine cephalgia Ulcerative colitis History of generalized anxiety disorder Paroxysmal atrial fibrillation Recommendation: Continue antibiotics Thoracotomy and decortication scheduled for a.m. Continue bronchodilators Continue oxygen and titrate accordingly Cut down on prednisone, now 10 mg daily instead of 20 mg daily Will continue to follow. Time with Patient: Less than 30
[2024-06-06 16:20] LABS: Glucose,Whole Blood 174 mg/dL (70-110)
[2024-06-06 19:54] LABS: Glucose,Whole Blood 87 mg/dL (70-110)
--- NOTE | 2024-06-07 05:46 | P.PN ---
Subjective Progress Note Date: 06/06/24 This is a pleasant 63 years old female with past medical history of multiple medical problems including hypertension, hyperlipidemia, degenerative disc disease, fibromyalgia, multiple sclerosis, anxiety and depression. Patient presents because of worsening dyspnea for 2 days. Patient has a known case of bronchitis which is chronic and there is a 4 reported at home about 3 days prior to arrival to the hospital. Patient currently is in severe respiratory distress and cannot provide information, commercial specialist A-team was called for worsening dyspnea. Patient oxygen requirement went up to 6 L/min and was getting worse so one-time dose of IV Lasix provided and she was placed on BiPAP, she could tolerated only for 10 minutes and then she started becoming tachycardic and tachypneic with a breathing rate between 40s to 50s. She was hypoxic diaphoretic, sweating and pale. Another A-team was called and patient was moved to the ICU where she got emergent intubated. Staff tried to call the son and left a message I called the son myself Mr. Jefferson at [phone] and left a message to call back. Information was obtained from staff and medical record. Patient was afebrile, on admission She has significant worsening leukocytosis up to 40,000, hemoglobin dropped to 8.5. Platelet count were up to 561 . Liver enzymes mildly elevated. D-dimer was elevated 5.5 and CTA of the chest was obtained showing significant abnormalities : No pulmonary embolism, large left pleural effusion, loculated with complete left lung collapse with possible splenic involvement and enlarged mediastinal lymphadenopathy findings suspicious for malignancy 05/27/2024 Patient got extubated yesterday Patient today was still drowsy lethargic somewhat confused and very weak. She has large pleural effusion and she underwent thoracocentesis today with 1.5 of pleural fluid aspirated and sent for studies. Her WBC jumped up to 73 K and hemoglobin down to 6.6. As such her IV vancomycin continued, IV cefepime added and patient received 1 unit of blood transfusion today Patient also kept on IV Solu-Medrol and Ringer lactate at 100 mL/h ProCalcitonin is elevated 6.7%. 05/28/2024 Patient remains in the ICU, it looks like she was intubated the night before She remains on IV Solu-Medrol and broad-spectrum antibiotic with IV vancomycin and cefepime. No IV fluids running. No anticoagulation because of the bleeding. Hemoglobin improved 6.6 up to 7.5 Leukocytosis improving 73 down to 48 05/29/24 Patient remains in the ICU intubated and sedated, She is still getting broad-spectrum antibiotic with IV vancomycin and cefepime She remains on IV Solu-Medrol Chest x-ray showing increased haziness on the left side lung and both basal areas more on the left side. 05/31/2024 Patient breathing is better today, she talks freely Has frequent bowel movement not sure if his diarrhea about 3 to 4/day However her main problem is the breathing and the pneumonia looks better but it is complicated empyema Interventional radiologist has been consulted for possible pigtail tube insertion. 06/01/24 pt states Breathing is better, currently she is on 4 L, still has some decreased air entry on the left side. She has recent diarrhea controlled with Lomotil She has significant leukocytosis yesterday but is improving, IV Solu-Medrol lowered to 40 mg twice daily Repeat WBC from today is pending She remains on ceftriaxone based on culture results showing alphahemolytic Streptococcus. 06/02/24 Patient oxygen requirement went up from 4 L/min up to 14 L/min Patient went down for IR for pigtail placement Patient still complaining from dyspnea. She has bilateral crepitation Labs showing leukocytosis 28,000, hemoglobin 8.3 She remains on ceftriaxone and IV Solu-Medrol 40 mg and IV Protonix 06/03/2024 Patient is status post rest left upper chest pigtail placement yesterday. Today's postop day #1 Repeat chest x-ray looks catheter in place and there is significant reduction in the size of the fluid collection most likely empyema. She remains on 8 L oxygen this morning lowered to 5 L compared to 4 L yesterday. No significant tachypnea. No chest pain Patient with Eliquis resumed last night after the procedure. She is on ceftriaxone. Patient also on IV Solu-Medrol 40 mg 06/04/24 Patient with likely pleural effusion on the left side/empyema. S/p thoracocentesis however there was still some particulate therefore IR team consulted tube was placed 2 days ago. There is about 1800 cc of purulent discharge collected so far. Patient breathing is better currently on 3 L Currently chest pain is slightly worse after Patient is alternating [place] and Dilaudid 06/05/2024 Patient is seen in follow-up today with pulmonary following. Patient continues with chest tube on the left chest wall with significant amount of purulent drainage noted. CT surgery consulted for possible thoracotomy and/or d ecortication. Patient was currently on Eliquis which needs to be held for at least 48 hours with plans on surgical intervention tentatively for 06/07/2024. Patient is afebrile with no reports of worsening chest pain or shortness of breath. Will continue on antibiotics and medication regimen at this time. Recommend PT/OT therapy evaluation and will discuss further with case management once patient is more stable for discharge. Patient has had prolonged hospitalization and would likely benefit from ECF for continued strength and mobility. 06/06/2024 Patient is seen and evaluated in follow-up this morning currently sitting up in the chair. Patient continues with a chest tube on the left with purulent drainage although some of it is clearing. Patient being followed and evaluated by CT surgery with plans of surgical intervention on 06/07/2024. Continue holding anticoagulation. Patient is afebrile with no reports of chest pain or worsening shortness of breath. Patient does have a weak cough and encouraged to continue coughing and deep breathing along with incentive spirometer use. Recommend PT/OT therapy evaluation. Patient will be n.p.o. at midnight and will await surgical report. Review of systems: Constitutional: No reports of fatigue, fever, or chills Cardiovascular: No reports of chest pain or palpitations Respiratory: No reports of worsening shortness of breath or cough GI: No reports of nausea, vomiting, or diarrhea : No reports of dysuria or retention Neurovascular: reports of generalized weakness All medications have been reviewed Physical exam: GENERAL: The patient is awake, alert and oriented x 3, well-developed, thin built, elderly appearing, ill-appearing HEENT: Pupils are round and equally reacting to light. EOMI. No scleral icterus. No conjunctival pallor. Normocephalic, atraumatic. No pharyngeal erythema. No thyromegaly. CARDIOVASCULAR: S1 and S2 muffled PULMONARY: Diminished breath sounds bilaterally otherwise chest is clear to auscultation, no wheezing , no crackles. ABDOMEN: Soft, nontender, nondistended, normoactive bowel sounds. No palpable organomegaly. MUSCULOSKELETAL: No joint swelling or deformity. EXTREMITIES: No cyanosis, clubbing, or pedal edema. NEUROLOGICAL: Gross neurological examination did not reveal any focal deficits. Diffusely weak SKIN: No rashes. no petechiae. Assessment: Large loculated left pleural effusion with associated complete collapse of the left lung with mediastinal lymphadenopathy suspicious for malignancy is high. Also there is involvement of the spleen through rate controlled but no anticoagulation diaphragm. Status post thoracocentesis on 05/27 with 1.5 L removed. S/P bronchoscopy, with BAL, brushings, biopsies, left lower lobe. Empyema of the left, status post chest tube Severe acute hypoxic respiratory failure, present on admission. Requiring intubation and mechanical ventilation. Acute COPD exacerbation Severe leukocytosis with findings above pneumonia is highly suspected. worsening anemia requiring 1 unit of blood transfusion on 05/27 New onset A-fib and RVR, currently rate controlled but no anticoagulation for severe anemia Hypertension Hyperlipidemia Degenerative disc disease Fibromyalgia Multiple sclerosis Anxiety and depression Moderate calorie protein malnutrition with a BMI of 19.8 GI prophylaxis DVT prophylaxis Full code Plan: Continue with pigtail catheter to suction as patient is status post thoracentesis. Cultures thus far been negative and patient is maintained on antibiotics. CT surgery consulted for concerns of continued loculated empyema on the left with plans of further evaluation with possible thoracotomy or decortication. Patient did receive Eliquis and will hold with tentatively scheduled CT surgery on 06/07/2024. Patient will be n.p.o. at midnight Follow-up respiratory culture IV Solu-Medrol switched to prednisone with pulmonary following Continue with antibiotics with ceftriaxone as sputum culture growing Streptococcus Cardiology on the case for A-fib RVR but no anticoagulation for anemia as well as surgical intervention on Wednesday Pulmonary, cardiology and hematology/oncology following Recommend PT/OT therapy evaluation and case management consult. Patient has had prolonged hospitalization and will likely require ECF on discharge for continued strength and mobility Due to multiple complex medical issues, prognosis is guarded The impression and plan of care has been dictated by Carol Landaverde, Nurse Practitioner as directed. Dr. Bowen MD I have performed a history and examination and MDM of this patient, discussed the same with the dictator, and agree with the dictator's assessment and plan as written ,documented as a scribe. Based on total visit time, I have performed more than 50% of the visit. Objective - Vital Signs Vital signs: Vital Signs Temp 97.4 F L 06/06/24 04:00 Pulse 78 06/06/24 04:26 Resp 16 06/06/24 04:00 BP 120/74 06/06/24 04:00 Pulse Ox 97 06/06/24 04:00 FiO2 40 05/29/24 16:00 Intake & Output 06/05/24 06/05/24 06/06/24 06:59 18:59 06:59 Intake Total 240 934 120 Output Total 170 400 110 Balance 70 534 10 Weight 54.6 kg 54.6 kg 52.4 kg Intake: Oral 240 934 120 Output: Chest Tube Drainage 170 400 110 Chest Tube Left Upper 170 400 110 Anterior Chest Other: # Voids 2 1 0 ABP, PAP, CO, CI - Last Documented Arterial Blood Pressure 121/88 - Labs CBC & Chem 7: 06/06/24 09:59 06/06/24 09:59 Labs: Abnormal Lab Results - Last 24 Hours (Table) 06/05/24 06/05/24 06/05/24 Range/Units 06:22 12:10 16:14 POC Glucose (mg/dL) 126 H 120 H 157 H (70-110) mg/dL 06/06/24 Range/Units 06:04 POC Glucose (mg/dL) 113 H (70-110) mg/dL Microbiology - Last 24 Hours (Table) 05/27/24 09:45 Fungal Culture - Preliminary Pleural Fluid 05/27/24 09:45 Acid Fast Bacilli Smear - Preliminary Pleural Fluid Acid Fast Bacilli Culture - Preliminary 05/26/24 10:00 Acid Fast Bacilli Smear - Preliminary Bronchoalviolar Lavage - Left Acid Fast Bacilli Culture - Preliminary 06/02/24 11:45 Gram Stain - Preliminary Aspirate Body Fluid Culture - Preliminary
[2024-06-07 06:08] LABS: Glucose,Whole Blood 103 mg/dL (70-110)
[2024-06-07] MEDS: DEXAMETHASONE SOD PHOSPHATE 4 MG/ML 1 ML VIAL IV ONE (06:16)
[2024-06-07] MEDS: predniSONE 10 MG TAB PO SCH (06:16)
[2024-06-07] MEDS: ONDANSETRON 4 MG/2 ML VIAL IVP ONE (06:16)
[2024-06-07] MEDS: LACTATED RINGERS 1,000 ML IV SCH (06:17)
[2024-06-07] MEDS: IV FLUID CONTINUATION 1,000 ML IV ONE ×2 (07:55→09:23)
[2024-06-07] MEDS: methylPREDNISolone SOD SUCCI 125 MG/2 ML VIAL IV STA (07:57)
[2024-06-07] MEDS: MIDAZOLAM 2 MG/2 ML VIAL IVP ONE ×2 (07:57→08:06)
[2024-06-07] MEDS: fentaNYL (PF) 50 MCG/ML 2 ML AMP IVP ONE (08:36)
[2024-06-07 08:44] LABS: Glucose,Whole Blood 114 mg/dL (70-110)
[2024-06-07] MEDS ORDERED: ROCURONIUM 10 MG/ML (5 ML VIAL) IV ONE (09:15)
[2024-06-07] MEDS ORDERED: MIDAZOLAM 2 MG/2 ML VIAL ONE (09:15)
[2024-06-07] MEDS ORDERED: fentaNYL (PF) 50 MCG/ML 2 ML AMP ONE (09:15)
[2024-06-07] MEDS ORDERED: LIDOCAINE 1%-EPI 1:100,000 20 ML VIAL ONE (09:15)
[2024-06-07] MEDS ORDERED: ROPIVACAINE 5 MG/ML 30 ML VIAL ONE (09:15)
[2024-06-07] MEDS ORDERED: SUCCINYLCHOLINE CHLORIDE 200 MG/10 ML VIAL IV ONE (09:15)
[2024-06-07] MEDS ORDERED: PHENYLEPHRINE-0.9% NACL SYG 1,000 MCG/10 ML SYRINGE ONE (09:15)
[2024-06-07] MEDS ORDERED: PROPOFOL 10 MG/ML 20 ML VIAL IV ONE (09:15)
[2024-06-07] MEDS ORDERED: SUGAMMADEX SODIUM 200 MG/2 ML SDV IV ONE (09:15)
[2024-06-07] MEDS ORDERED: ONDANSETRON 4 MG/2 ML VIAL ONE (09:15)
[2024-06-07] MEDS ORDERED: LIDOCAINE 1% INJ 10MG/ML (20 ML MDV) ONE (09:15)
--- NOTE | 2024-06-07 09:59 | P.ANPRN ---
Procedure Note - Anesthesia - Nerve Block Performed Left Erector Spinae Single Time Out Performed: Yes Date of Procedure: 06/07/24 Procedure Start Time: 08:45 Procedure Stop Time: 08:52 Location of Patient: PreOp Indication: Acute Post-Operative Pain, Requested by Surgeon Sedation Type: Sedate with meaningful contact maintained Preparation: Sterile Prep Position: Sitting Needle Types: Pajunk Needle Gauge: 21 Ultrasound used to visualize needle placement: Yes Ultrasound used to observe medication spread: Yes Injectate: 0.5% Ropivacaine (see comment for volume) (15 ml plus 15 ml lidocaine 1 % with epi 1 / 200k) Blood Aspirated: No Pain Paresthesia on Injection Noted: No Resistance on Injection: Normal Image Stored and Saved: Yes Events: Uneventful and Well Tolerated
[2024-06-07] MEDS: BUPIVACAINE (PF) 0.25% 30 ML VIAL SQ ONE (10:10)
--- NOTE | 2024-06-07 11:24 | P.OP ---
Date of Procedure: 06/07/24 Preoperative Diagnosis: Empyema Postoperative Diagnosis: Same Procedure(s) Performed: 1. Bronchoscopy 2. Left video assisted thorascopic decortication Anesthesia: BRIANA Surgeon: Colin Castro Estimated Blood Loss (ml): 100 Pathology: other (pleural rind for culture) Condition: stable Disposition: PACU Indications for Procedure: This patient is a 63 year-old F who presented to the hospital with several days of feeling unwell. CT scan revealed a large left sided pleural effusion. She underwent CT guided pigtail placement with purulent drainage. Despite conservative management she continued to have trapped lung and persistent drainage. VATS decortication was recommended. Operative Findings: Thin pleural rind covering the left lung. Description of Procedure: The patient underwent arterial line and spinal block placement in the pre- operative suite. She was brought back to the operating room and placed in the supine position. General anesthesia was induced and she was intubated with a double lumen tube. Bronchoscopy was performed to check placement and for diagnostic purposes. Her tracheo-bronchial tree was normal without lesions and minimal secretions. She was positioned in the right lateral decubitus position and her left chest was prepped and draped. She was already on antibiotics and a time-out was performed. I made a 2cm incision in the 7th intercostal space posterior axillary line and inserted the camera. The lung was adherent here so I turned my attention to anteriorly and made a 2cm incision here. There was good lung visualization and the lung was bluntly peeled away from the chest wall. There was a thin white rind on the lung. A 3rd incision was made inferiorly in the 9th intercostal space mid axillary line. The right chest was washed out first with suction harvesting supervisor. At this point, the metal suction tip and curette combination was then used to peel the rind off. The chest was further irrigated and two chest tubes were placed. All incisions were closed in layers and the patient was extubated at the end of the procedure.
--- NOTE | 2024-06-07 12:08 | XR ---
EXAMINATION TYPE: XR chest 1V portable DATE OF EXAM: 06/07/2024 COMPARISON: 06/06/2024 INDICATION: Chest tube placement TECHNIQUE: Single frontal view of the chest is obtained. FINDINGS: The heart size is normal. The pulmonary vasculature is significantly diminished over the interval with little residual evident. . Bibasilar small pleural effusions. Be present. Some atelectasis or increased densities at the left ba se. There is been removal of the previous left-sided chest tube. Two chest tubes have been placed at the base, and a second directed towards the apex. Near complete resolution previous left pneumothorax. IMPRESSION: 1. No acute pulmonary process.
[2024-06-07 12:39] LABS: Glucose,Whole Blood 165 mg/dL (70-110)
[2024-06-07 12:43] LABS: ABG Base Excess 3.8 mmol/L; ABG HCO3 30 mmol/L (21-25); ABG Oxygen Saturation 94.2 % (94-97); ABG PCO2 51 mmHg (35-45); ABG PH 7.37 (7.35-7.45); ABG PO2 71 mmHg (83-108); ABG TCO2 31 mmol/L (19-24); Allen Test Performed? no
--- NOTE | 2024-06-07 15:04 | P.PN ---
Subjective Progress Note Date: 06/07/24 Principal diagnosis: Acute hypoxic respiratory failure secondary to pneumonia/empyema with loculated left-sided pleural effusion 63-year-old female seen this morning in consultation. The patient was seen initially in the emergency department, on May 25. She apparently came in with complaints of shortness of breath, and low saturations. The patient has been treated recently for bronchitis with steroids and antibiotics. This morning, a rapid response was called on this patient, and, the charge nurse called me, to tell me that the patient would benefit from Lasix, and BiPAP. That was done initially, but subsequent to that, another rapid response was called on this pa tient, and the patient needed to be transferred to the intensive care unit, for intubation and mechanical ventilation. Currently, she is on volume assist- control, rate 20, tidal volume 350, FiO2 100%, PEEP of 5. She is on a Cardizem drip at 10 mg an hour for atrial fibrillation, propofol at 60 mcg/kg/min, and she is receiving some fluid, i.e. saline, at 1 L, as a fluid bolus. Afterwards, she will be switched to lactated Ringer's at 100 cc an hour. She had a an arterial line placed, and a central line placed. We did a right radial arterial line, and a left subclavian triple-lumen catheter. She was intubated by the [employer]. Current labs include a white count of 54.7, hemoglobin 8.7, hematocrit 29.7, and a platelet count of 605,000. Initial blood gases showed a pO2 of 146, pCO2 of 61, and pH is 7.24. The rate was increased from 28 to 24 breaths/min. In addition, the FiO2 was dropped down to 70%. Sodium 138, potassium 4.9, chlorides 102, CO2 28, BUN 18, creatinine 0.45. Glucose is 288. Calcium is 8.9. Lactic acid 1.3. The left chest reveals a pleural effusion, with possible loculations. An ultrasound was ordered. In addition, the patient had bronchoscopy, with airway examination, therapeutic lavage, BAL, brushings left lower lobe, and endobronchial and transbronchial biopsies left lower lobe. Progress note dated May 27, 2024. 63-year-old female seen in consultation yesterday. Please see the note above. The patient developed lopez respiratory failure, and was intubated, yesterday, May 26. She remains on mechanical ventilator. She is on volume assist-control , rate 24, tidal volume 350, FiO2 60%, to be reduced down to 50%, PEEP of 5. Blood gases show pO2 of 112, pCO2 44, pH is 7.37. The patient continues on propofol at 60 mcg/kg/min, norepinephrine at 7 mcg/min, fentanyl at 2 mcg/kg/h, LR at 100 cc an hour. The patient is on vancomycin, and we add cefepime. The patient had a left-sided thoracentesis today. 1.5 L of milky slightly green fluid was removed from the left pleural space. The patient's procalcitonin level is elevated 9.74. Current labs include a white count of 73.5, hemoglobin 6.6, hematocrit 22.2, platelet count 452,000. The patient will get 1 unit of PRBCs. In addition, sodium 139, potassium 4.8, chlorides 108, CO2 21, anion gap 10, BUN 21, creatinine 0.38. Calcium is 8.3. Magnesium is 1.9. Cultures are thus far negative. The postthoracentesis chest x-ray shows an improved left- sided pleural fluid collection, and a small to moderate size left-sided hydropneumothorax. Progress note dated May 28, 2024. 63-year-old female seen in consultation 2 days ago. The patient remains on mechanical ventilator. She is seen today in room 262. She is on volume assist- control, rate 24, tidal volume 350, FiO2 50%, PEEP of 5. Blood gases show pO2 119, pCO2 45, pH is 7.40. The FiO2 will be reduced at 40%. She is sedated with propofol at 65 mcg/kg/min, norepinephrine at 1.2 mcg/min, and fentanyl at 2 mcg/kg/h. She is getting lactated Ringer's at 100 cc an hour, and vital high- protein at 33 cc an hour. She continues on cefepime, and vancomycin. Current laboratory data includes a white count 48.1, hemoglobin 7.5, hematocrit 25.6, and platelet count 382,000. Sodium 140, potassium 4.4, chlorides 111, CO2 26, BUN 24, creatinine 0.42. Glucose is 215. Calcium 8.2. Cultures thus far are negative. That includes bronchoscopy results. Chest x-ray shows a relatively clear right lung. There is some haziness, on the left side, with a left-sided pleural effusion. She did undergo thoracentesis yesterday. On 05/29/2024, seen the patient for a follow-up. This morning, the patient remains intubated on mechanical ventilator. I reviewed the records and the patient came to us with a complicated loculated large left-sided pleural effusion which was drained and the fluid is an exudate with negative cultures. Subsequent chest x-ray from today still showing some loculated left-sided pleural effusion. The patient remains on a combination of antibiotics utilizing cefepime and vancomycin. This morning, the patient remains on propofol running at 60 mcg/kg/min and fentanyl at 2 mcg/kg/h. Patient remains on lactated Ringer at rate of 100 cc an hour. Norepinephrine drip has been discontinued approximately 24 hours ago. She is on assist-control mode of mechanical ventilation at rate of 24, tidal volume of 350, FiO2 of 40% with a PEEP of 5 and a blood gases showing a pH of 7.41 with a pCO2 of 46 and pO2 of 77. The white cell count is down to 31 and the hemoglobin is at 8 with a platelet count of 368. The procalcitonin level is downtrending from 9.7 down to 6.7. The rest of the electrolytes are stable with a BUN of 25 and a creatinine of 0.4 and a serum bicarb of 28. The patient is arousable while being off of sedation. Will check weaning parameters and assess her candidacy for further weaning. The patient is on vital high-protein at rate of 33 cc an hour. Today's evaluation of 05/30/2024, the patient is being seen for a follow-up. The patient was weaned off the mechanical ventilator and the patient was extubated to nasal cannula yesterday without any major difficulties and the patient is currently on 40s of oxygen nasal cannula. The follow-up chest x-ray still showing a persistent left-sided pleural effusion along with loculation. There is also some increase in small right-sided pleural effusion. The microbial cultures from the pleural fluid came back positive for alpha hemolytic Streptococcus. Antibiotic adjustments will be done accordingly. Hemodynamically stable. No significant chest pain. No discomfort. The patient remains on bronchodilators. The patient remains on IV Solu-Medrol. Blood work from today shows improvement in the white cell count which is currently down to 24 with a hemoglobin of 8.3 and a platelet count of 373, BUN is 24 and a creatinine of 0.4 and a electrolytes are all within normal limits. Awake and alert and communicating and using the incentive spirometer. 05/31/2024, the patient is being seen for a follow-up. The patient is still recov ering from an extensive left lung pneumonia that was complicated by empyema and this is likely secondary to streptococcal pneumonia. Her white cell count is improving. Her respiratory status is stable. Hemodynamically stable. The patient is currently on 4 L of oxygen by nasal cannula with a pulse ox of 95%. Meanwhile, a follow-up CAT scan of the chest was done and the patient was found to have a loculated left pleural effusion which has diminished in size. There is still a loculated pocket in the posterior left lung base. Trace left-sided pneumothorax. There is also an ongoing consolidation and areas of scattered groundglass opacities correlating with pneumonia. Small right-sided pleural effusion is also seen. The patient's blood work from today shows a white cell count of 24 with a hemoglobin 8.3 and a platelet count of 373. Electrolytes are all stable and within normal limits. Renal function is also stable. The patient remains on IV antibiotics. The patient remains on IV Rocephin 2 g every 24 hours. Rest of the medications are essentially unchanged. Remains on IV So abbie-Medrol 60 mg every 6 hours. 06/01/2024, patient is being seen for a follow-up. The patient feeling well. No specific complaints. She remains on oxygen 4 L/min nasal cannula. No chest pain. No shortness of breath. I reviewed the CAT scan of the chest that was done yesterday and I requested an interventional radiology consultation for the pigtail catheter insertion. Unfortunately, this has not been completed and no IR services are available for this current holiday. I am hoping that this can be completed by tomorrow. Meanwhile, the patient is doing well. The patient remains on antibiotics with IV Rocephin. No new labs from today. Clinically stable. Hemodynamically stable. No pleurisy. No hemoptysis. On today's evaluation of 06/02/2024, the patient is going to undergo a pigtail catheter insertion regarding the loculated pocket of empyema in the left lung base. Case was discussed with interventional radiology. Meanwhile, the patient oxygenation status is getting worse. Earlier this morning, the patient was on 4 L and she was brought up to 14 L and currently she is down to 11 L of oxygen by nasal cannula with a pulse ox of 94%. The patient has no specific complaints. She remains on IV Rocephin. She has been on bronchodilators. She has been on steroids. Her white cell count is currently at 28 with a hemoglobin 11.7 and a platelet count of 279. BUN is 13 with a creatinine of 0.8. Repeat chest x-ray was done today and the patient was found to have a large loculated empyema in the left lung. Small pleural effusion was also noted on the right lung base. Noted the loculation has developed in the left lung compared to the earlier chest x-ray and the patient is going to undergo a pigtail catheter insertion for further drainage. No chest pain. No fever or chills. No other new complaints otherwise for now. On 06/03/2024, the patient is calm and comfortable on 5 L of oxygen by nasal cannula. Pigtail catheter was inserted yesterday and the patient produced approximately 950 cc of pus from the right hemithorax. Follow-up chest x-ray from today shows significant reduction of the left-sided empyema and there is a small left-sided pneumothorax possibly trapped lung. There is some residual consolidation in the lung base bilaterally. Clinically patient is doing well. The white cell count down to 16, hemoglobin 9.1, BUN is 10 with a creatinine of 0.35 and the patient remains on IV Rocephin. No other significant events overnight. She remains on bronchodilators. She remains on steroids. 06/04/2024, I am seeing the patient for a follow-up. The patient is doing well. Patient continues to have active drainage from the pigtail catheter. The c atheter drained approximately 730 cc overnight. The patient received a dose of thrombolytic yesterday without any major difficulties. This improve the output from the pigtail catheter. A repeat chest x-ray was done today and the findings are essentially stable. The patient has a stable loculated left-sided pneumothorax. No new labs are available from today. The pleural fluid was again sent for culture. The most recent culture was positive for Streptococcus and the patient is currently on IV Rocephin 2 g every 24 hours. She is awake and alert and communicating. Some limited pain and discomfort over the left chest and the pain is tolerable. She is on 40s of oxygen by nasal cannula with a pulse ox of 97%. Patient was evaluated today on 06/05/2024, patient is basically about the same, continues to have a significant amount of drainage seems to be purulent drainage from her left-sided pleural space/empyema, patient remains on antibiotics, she has now a relatively good sized left-sided pneumothorax and I suspect that this is a trapped lung since the pneumothorax seems to be the area where the fluid was present to begin with patient is on 3 L nasal cannula, O2 sat is 95%. Continues to have a pigtail catheter in place. And draining significant amount of fluid. The culture on the fluid came back positive for Streptococcus intermedius, patient did receive lytic therapy, however considering the worsening chest x-ray, I am recommending a l thoracic surgery consultation, wondering if the patient may eventually require decortication clinically, the patient does not seem to be in any distress Patient was evaluated 06/06/2024, clinically about the same, patient was seen by thoracic surgery, and now she is scheduled for left thoracotomy with decortication mostly because of her persistent empyema and loculated pleural effusion. And not to mention the patient seems to have a trapped lung. Patient is not improving much with medical therapy, and surgery is strongly recommended patient is on 3 L nasal cannula, hemodynamically stable, does not seem to be in distress, continues to have significant amount of purulent drainage from the left sided chest tube into the Pleur-evac continues to have what seems to be a pneumothorax/trapped lung Patient was evaluated today on 06/07/2024, patient is status post left video- assisted thoracoscopic decortication, this was done today by Dr. Castro. I saw the patient in the recovery room, reviewed her ABG, advised to place on few liters nasal cannula and titrate to O2 saturation just above 90%. Patient seems to be in pain, however her postoperative chest x-ray shows much improvement and complete reexpansion of the left lung. No acute process was noted. Chest tubes seem to be in proper position Objective - Vital Signs Vital signs: Vital Signs Temp 97.9 F 06/07/24 12:50 Pulse 76 06/07/24 12:50 Resp 15 06/07/24 13:14 BP 104/72 06/07/24 13:14 Pulse Ox 99 06/07/24 13:14 FiO2 40 05/29/24 16:00 Intake & Output 06/06/24 06/07/24 06/07/24 18:59 06:59 18:59 Intake Total 540 1340 1400 Output Total 1000 141 585 Balance -460 1199 815 Weight 52.8 kg Intake: IV 1400 Intake, IV Titration 800 Amount Sodium Chloride 0.9% 1, 750 000 ml @ 75 mls/hr IV . [id number] [facility] Rx#:[id number] cefTRIAXone 2 gm In 50 Sodium Chloride 0.9% 50 ml @ 100 mls/hr IVPB Q12HR [facility] Rx#:[id number] Oral 540 540 Output: Chest Tube Drainage 400 140 230 Chest Tube Left Anterior 50 Chest Chest Tube Left Posterior 180 Chest Chest Tube Left Upper 400 140 Anterior Chest Urine 300 Urine/Stool Mix 300 1 Estimated Blood Loss 355 Other: # Voids 1 # Bowel Movements 1 ABP, PAP, CO, CI - Last Documented Arterial Blood Pressure 121/88 - Exam General: The patient is awake and alert, in no distress, and does not appear acutely ill. On 3 L nasal cannula Skin: Skin is warm and dry and no rashes or lesions are noted. Eye: Pupils are equal, round and reactive to light, extra-ocular movements are intact; there is normal conjunctiva bilaterally. Ears, nose, mouth and throat: There are moist mucous membranes and no oral lesions. Neck: The neck is supple, there is no tenderness or JVD. Cardiovascular: There is a regular rate and rhythm. No murmur, rub or gallop is appreciated. Respiratory: Left-sided chest tubes noted to be in proper position and attached to Pleur-evac. Gastrointestinal: Soft, non-distended, non-tender abdomen without masses or organomegaly noted. There is no rebound or guarding present. Bowel sounds are unremarkable. Back: There is no tenderness to palpation in the midline. There is no obvious deformity. Musculoskeletal: Normal ROM, no tenderness, There is no pedal edema. There is no calf tenderness or swelling. No cords were appreciated. Neurological: CN II-XII intact, Cranial nerves III through XII are intact. There are no obvious motor or sensory deficits. Coordination appears grossly intact. Speech is normal. Psychiatric: Cooperative, appropriate mood & affect, normal judgment. - Labs CBC & Chem 7: 06/06/24 09:59 06/06/24 09:59 Labs: Abnormal Lab Results - Last 24 Hours (Table) 06/06/24 06/07/24 06/07/24 Range/Units 16:18 08:43 11:32 ABG pCO2 51 H (35-45) mmHg ABG pO2 71 L (83-108) mmHg ABG HCO3 30 H (21-25) mmol/L ABG Total CO2 31 H (19-24) mmol/L POC Glucose (mg/dL) 174 H 114 H (70-110) mg/dL 06/07/24 Range/Units 12:37 ABG pCO2 (35-45) mmHg ABG pO2 (83-108) mmHg ABG HCO3 (21-25) mmol/L ABG Total CO2 (19-24) mmol/L POC Glucose (mg/dL) 165 H (70-110) mg/dL Microbiology - Last 24 Hours (Table) 06/02/24 11:45 Anaerobic Culture - Final Aspirate Assessment and Plan Assessment: Impression: Status post video-assisted left lung decortication postoperative day #0 Acute hypoxic respiratory failure Acute left lower lobe pneumonia with empyema Loculated left pleural effusion Left-sided pneumothorax, possibly trapped lung Status post bronchoscopy biopsy and BAL with negative malignancy History of left-sided thoracentesis and pigtail catheter placement Leukocytosis secondary to above Benign essential hypertension Tobacco dependence syndrome Dyslipidemia History of fibromyalgia Migraine cephalgia Ulcerative colitis History of generalized anxiety disorder Paroxysmal atrial fibrillation Recommendation: Continue present supportive care measures Continue antibiotics Daily monitoring of x-rays of the chest Continue bronchodilators Continue oxygen and titrate accordingly Continue prednisone at 10 mg daily for now Postoperative incentive spirometry Early ambulation Will continue to follow. Time with Patient: Less than 30
[2024-06-07 15:09] LABS: Anisocytosis Slight; Basophils % (A) 0 %; Eosinophils # (A) 0.1 k/uL (0-0.7); Eosinophils % (A) 0 %; HCT 27.1 % (34.0-46.0); HGB 8.2 gm/dL (11.4-16.0); Hypochromasia Marked; Lymphocytes # (A) 0.5 k/uL (1.0-4.8); Lymphocytes % (A) 3 %; MCHC 30.4 g/dL (31.0-37.0); MCV 101.9 fL (80.0-100.0); Macrocytosis Moderate; Mean Platelet Volume 9.5; Monocytes # (A) 0.7 k/uL (0-1.0); Monocytes % (A) 4 %; Neutrophils # (A) 16.2 k/uL (1.3-7.7); Neutrophils % (A) 93 %; Platelet Count 360 k/uL (150-450); RBC 2.66 m/uL (3.80-5.40); RDW 16.6 % (11.5-15.5); WBC 17.5 k/uL (3.8-10.6)
[2024-06-07 15:11] LABS: African American GFR (CKD) >90 (>60 ml/min/1.73 sqM); Anion Gap 2 mmol/L; Blood Urea Nitrogen 8 mg/dL (7-17); Carbon Dioxide 29 mmol/L (22-30); Chloride 102 mmol/L (98-107); Glucose 146 mg/dL (74-99); Non-African American GFR(CKD) >90 (>60 ml/min/1.73 sqM); Sodium 133 mmol/L (137-145)
[2024-06-07 15:13] LABS: Potassium 5.3 mmol/L (3.5-5.1)
[2024-06-07 16:21] LABS: Glucose,Whole Blood 125 mg/dL (70-110)
[2024-06-07 20:04] LABS: Glucose,Whole Blood 143 mg/dL (70-110)
[2024-06-07] MEDS: SODIUM ZIRCONIUM CYCLOSILICATE 10 GM PACKET PO ONE (20:30)
[2024-06-07] MEDS ORDERED: IPRATROPIUM-ALBUTEROL 3 ML NEB INHALATION PRN (21:44)
--- NOTE | 2024-06-08 05:21 | P.PN ---
Subjective Progress Note Date: 06/07/24 This is a pleasant 63 years old female with past medical history of multiple medical problems including hypertension, hyperlipidemia, degenerative disc disease, fibromyalgia, multiple sclerosis, anxiety and depression. Patient presents because of worsening dyspnea for 2 days. Patient has a known case of bronchitis which is chronic and there is a 4 reported at home about 3 days prior to arrival to the hospital. Patient currently is in severe respiratory distress and cannot provide information, all around presser A-team was called for worsening dyspnea. Patient oxygen requirement went up to 6 L/min and was getting worse so one-time dose of IV Lasix provided and she was placed on BiPAP, she could tolerated only for 10 minutes and then she started becoming tachycardic and tachypneic with a breathing rate between 40s to 50s. She was hypoxic diaphoretic, sweating and pale. Another A-team was called and patient was moved to the ICU where she got emergent intubated. Staff tried to call the son and left a message I called the son myself Mr. Jefferson at [phone] and left a message to call back. Information was obtained from staff and medical record. Patient was afebrile, on admission She has significant worsening leukocytosis up to 40,000, hemoglobin dropped to 8.5. Platelet count were up to 561 . Liver enzymes mildly elevated. D-dimer was elevated 5.5 and CTA of the chest was obtained showing significant abnormalities : No pulmonary embolism, large left pleural effusion, loculated with complete left lung collapse with possible splenic involvement and enlarged mediastinal lymphadenopathy findings suspicious for malignancy 05/27/2024 Patient got extubated yesterday Patient today was still drowsy lethargic somewhat confused and very weak. She has large pleural effusion and she underwent thoracocentesis today with 1.5 of pleural fluid aspirated and sent for studies. Her WBC jumped up to 73 K and hemoglobin down to 6.6. As such her IV vancomycin continued, IV cefepime added and patient received 1 unit of blood transfusion today Patient also kept on IV Solu-Medrol and Ringer lactate at 100 mL/h ProCalcitonin is elevated 6.7%. 05/28/2024 Patient remains in the ICU, it looks like she was intubated the night before She remains on IV Solu-Medrol and broad-spectrum antibiotic with IV vancomycin and cefepime. No IV fluids running. No anticoagulation because of the bleeding. Hemoglobin improved 6.6 up to 7.5 Leukocytosis improving 73 down to 48 05/29/24 Patient remains in the ICU intubated and sedated, She is still getting broad-spectrum antibiotic with IV vancomycin and cefepime She remains on IV Solu-Medrol Chest x-ray showing increased haziness on the left side lung and both basal areas more on the left side. 05/31/2024 Patient breathing is better today, she talks freely Has frequent bowel movement not sure if his diarrhea about 3 to 4/day However her main problem is the breathing and the pneumonia looks better but it is complicated empyema Interventional radiologist has been consulted for possible pigtail tube insertion. 06/01/24 pt states Breathing is better, currently she is on 4 L, still has some decreased air entry on the left side. She has recent diarrhea controlled with Lomotil She has significant leukocytosis yesterday but is improving, IV Solu-Medrol lowered to 40 mg twice daily Repeat WBC from today is pending She remains on ceftriaxone based on culture results showing alphahemolytic Streptococcus. 06/02/24 Patient oxygen requirement went up from 4 L/min up to 14 L/min Patient went down for IR for pigtail placement Patient still complaining from dyspnea. She has bilateral crepitation Labs showing leukocytosis 28,000, hemoglobin 8.3 She remains on ceftriaxone and IV Solu-Medrol 40 mg and IV Protonix 06/03/2024 Patient is status post rest left upper chest pigtail placement yesterday. Today's postop day #1 Repeat chest x-ray looks catheter in place and there is significant reduction in the size of the fluid collection most likely empyema. She remains on 8 L oxygen this morning lowered to 5 L compared to 4 L yesterday. No significant tachypnea. No chest pain Patient with Eliquis resumed last night after the procedure. She is on ceftriaxone. Patient also on IV Solu-Medrol 40 mg 06/04/24 Patient with likely pleural effusion on the left side/empyema. S/p thoracocentesis however there was still some particulate therefore IR team consulted tube was placed 2 days ago. There is about 1800 cc of purulent discharge collected so far. Patient breathing is better currently on 3 L Currently chest pain is slightly worse after Patient is alternating Bapchule and Dilaudid 06/05/2024 Patient is seen in follow-up today with pulmonary following. Patient continues with chest tube on the left chest wall with significant amount of purulent drainage noted. CT surgery consulted for possible thoracotomy and/or d ecortication. Patient was currently on Eliquis which needs to be held for at least 48 hours with plans on surgical intervention tentatively for 06/07/2024. Patient is afebrile with no reports of worsening chest pain or shortness of breath. Will continue on antibiotics and medication regimen at this time. Recommend PT/OT therapy evaluation and will discuss further with case management once patient is more stable for discharge. Patient has had prolonged hospitalization and would likely benefit from ECF for continued strength and mobility. 06/06/2024 Patient is seen and evaluated in follow-up this morning currently sitting up in the chair. Patient continues with a chest tube on the left with purulent drainage although some of it is clearing. Patient being followed and evaluated by CT surgery with plans of surgical intervention on 06/07/2024. Continue holding anticoagulation. Patient is afebrile with no reports of chest pain or worsening shortness of breath. Patient does have a weak cough and encouraged to continue coughing and deep breathing along with incentive spirometer use. Recommend PT/OT therapy evaluation. Patient will be n.p.o. at midnight and will await surgical report. 06/07/2024 Patient is seen this morning n.p.o. and scheduled to undergo VATS procedure with decortication with cardiothoracic surgery today. Patient continues on antibiotics left-sided empyema. Patient continues with purulent drainage and noted chest tube and will await surgical report. Pulmonary following as well and will continue on as well as continued breathing treatments. Patient with significant weakness and prolonged hospitalization recommending ECF on discharge. Patient is agreeable and case management following and will be likely going to ECF on discharge. Repeat chest x-ray and continue to monitor closely. Encouraged to increase activity as tolerated getting up out of the bed more often with frequent walks. Review of systems: Constitutional: No reports of fatigue, fever, or chills Cardiovascular: No reports of chest pain or palpitations Respiratory: No reports of worsening shortness of breath or cough GI: No reports of nausea, vomiting, or diarrhea : No reports of dysuria or retention Neurovascular: reports of generalized weakness All medications have been reviewed Physical exam: GENERAL: The patient is awake, alert and oriented x 3, well-developed, thin built, elderly appearing, ill-appearing HEENT: Pupils are round and equally reacting to light. EOMI. No scleral icterus. No conjunctival pallor. Normocephalic, atraumatic. No pharyngeal erythema. No thyromegaly. CARDIOVASCULAR: S1 and S2 muffled PULMONARY: Diminished breath sounds bilaterally otherwise chest is clear to auscultation, no wheezing , no crackles. ABDOMEN: Soft, nontender, nondistended, normoactive bowel sounds. No palpable organomegaly. MUSCULOSKELETAL: No joint swelling or deformity. EXTREMITIES: No cyanosis, clubbing, or pedal edema. NEUROLOGICAL: Gross neurological examination did not reveal any focal deficits. Diffusely weak SKIN: No rashes. no petechiae. Assessment: Large loculated left pleural effusion with associated complete collapse of the left lung with mediastinal lymphadenopathy suspicious for malignancy is high. Also there is involvement of the spleen and diaphragm. Status post thoracocentesis on 05/27 with 1.5 L removed. S/P bronchoscopy, with BAL, brushings, biopsies, left lower lobe. Empyema of the left, status post chest tube, scheduled to undergo VATS procedure with decortication with CT surgery today 06/07/2024 Severe acute hypoxic respiratory failure, present on admission. Requiring intubation and mechanical ventilation. Successfully extubated currently on 3 L via nasal cannula Acute COPD exacerbation Severe leukocytosis with findings above pneumonia is highly suspected. worsening anemia requiring 1 unit of blood transfusion on 05/27 New onset A-fib and RVR, currently rate controlled but no anticoagulation for severe anemia Hypertension Hyperlipidemia Degenerative disc disease Fibromyalgia Multiple sclerosis Anxiety and depression Moderate calorie protein malnutrition with a BMI of 19.8 Gait dysfunction with generalized weakness GI prophylaxis DVT prophylaxis Full code Plan: Continue with pigtail catheter to suction as patient is status post thoracentesis. Cultures thus far been negative and patient is maintained on antibiotics. CT surgery consulted for concerns of continued loculated empyema on the left with plans of further evaluation with possible VATS decortication. Patient did receive Eliquis and will hold with tentatively scheduled CT surgery on 06/07/2024. Currently n.p.o. await surgical report. Resume Eliquis once cleared by CT surgery Follow-up respiratory culture IV Solu-Medrol switched to prednisone with pulmonary following Continue with antibiotics with ceftriaxone as sputum culture growing Streptococcus Cardiology on the case for A-fib RVR but no anticoagulation for anemia as well as surgical intervention on Wednesday Pulmonary, cardiology and hematology/oncology following Recommend PT/OT therapy evaluation and case management consult. Patient has had prolonged hospitalization and will likely require ECF on discharge for continued strength and mobility. Patient has been instructed to increase activity as tolerated get up out of the bed more often chair. Will discuss further with case management once cleared by consultations Due to multiple complex medical issues, prognosis is guarded The impression and plan of care has been dictated by Carol Landaverde, Nurse Practitioner as directed. Dr. Bowen MD I have performed a history and examination and MDM of this patient, discussed the same with the dictator, and agree with the dictator's assessment and plan as written ,documented as a scribe. Based on total visit time, I have performed more than 50% of the visit. Objective - Vital Signs Vital signs: Vital Signs Temp 98.0 F 06/07/24 04:00 Pulse 90 06/07/24 04:00 Resp 18 06/07/24 04:00 BP 99/66 06/07/24 04:00 Pulse Ox 91 L 06/07/24 04:00 FiO2 40 05/29/24 16:00 Intake & Output 06/06/24 06/06/24 06/07/24 06:59 18:59 06:59 Intake Total 120 540 Output Total 110 1000 141 Balance 10 -460 -141 Weight 52.4 kg Intake: Oral 120 540 Output: Chest Tube Drainage 110 400 140 Chest Tube Left Upper 110 400 140 Anterior Chest Urine 300 Urine/Stool Mix 300 1 Other: # Voids 0 1 # Bowel Movements 1 ABP, PAP, CO, CI - Last Documented Arterial Blood Pressure 121/88 - Labs CBC & Chem 7: 06/07/24 14:30 06/07/24 16:46 Labs: Abnormal Lab Results - Last 24 Hours (Table) 06/06/24 06/06/24 06/06/24 Range/Units 06:04 09:59 09:59 WBC 18.2 H (3.8-10.6) k/uL RBC 3.05 L (3.80-5.40) m/uL Hgb 8.9 L (11.4-16.0) gm/dL Hct 31.0 L (34.0-46.0) % MCV 101.6 H (80.0-100.0) fL MCHC 28.7 L (31.0-37.0) g/dL RDW 17.0 H (11.5-15.5) % Neutrophils # 16.7 H (1.3-7.7) k/uL Lymphocytes # 0.5 L (1.0-4.8) k/uL Sodium 136 L (137-145) mmol/L Creatinine 0.35 L (0.52-1.04) mg/dL Glucose 141 H (74-99) mg/dL POC Glucose (mg/dL) 113 H (70-110) mg/dL Calcium 7.8 L (8.4-10.2) mg/dL Total Protein 5.1 L (6.3-8.2) g/dL Albumin 2.5 L (3.5-5.0) g/dL 06/06/24 06/06/24 Range/Units 11:38 16:18 WBC (3.8-10.6) k/uL RBC (3.80-5.40) m/uL Hgb (11.4-16.0) gm/dL Hct (34.0-46.0) % MCV (80.0-100.0) fL MCHC (31.0-37.0) g/dL RDW (11.5-15.5) % Neutrophils # (1.3-7.7) k/uL Lymphocytes # (1.0-4.8) k/uL Sodium (137-145) mmol/L Creatinine (0.52-1.04) mg/dL Glucose (74-99) mg/dL POC Glucose (mg/dL) 134 H 174 H (70-110) mg/dL Calcium (8.4-10.2) mg/dL Total Protein (6.3-8.2) g/dL Albumin (3.5-5.0) g/dL Microbiology - Last 24 Hours (Table) 06/02/24 11:45 Anaerobic Culture - Final Aspirate 06/02/24 11:45 Gram Stain - Final Aspirate Body Fluid Culture - Final
[2024-06-08 05:44] LABS: Glucose,Whole Blood 104 mg/dL (70-110)
[2024-06-08] MEDS: IPRATROPIUM-ALBUTEROL 3 ML NEB INHALATION SCH (08:08)
[2024-06-08 08:39] LABS: Anisocytosis Slight; Basophils % (A) 0 %; Eosinophils # (A) 0.1 k/uL (0-0.7); Eosinophils % (A) 1 %; HCT 26.4 % (34.0-46.0); HGB 7.7 gm/dL (11.4-16.0); Hypochromasia Marked; Lymphocytes # (A) 1.8 k/uL (1.0-4.8); Lymphocytes % (A) 13 %; MCHC 29.1 g/dL (31.0-37.0); Macrocytosis Moderate; Mean Platelet Volume 9.6; Monocytes # (A) 0.8 k/uL (0-1.0); Monocytes % (A) 6 %; Neutrophils # (A) 11.1 k/uL (1.3-7.7); Neutrophils % (A) 79 %; Platelet Count 323 k/uL (150-450); RBC 2.56 m/uL (3.80-5.40); RDW 16.7 % (11.5-15.5); WBC 14.1 k/uL (3.8-10.6)
[2024-06-08 08:43] LABS: African American GFR (CKD) >90 (>60 ml/min/1.73 sqM); Anion Gap 5 mmol/L; Blood Urea Nitrogen 8 mg/dL (7-17); Calcium 8.2 mg/dL (8.4-10.2); Carbon Dioxide 28 mmol/L (22-30); Chloride 103 mmol/L (98-107); Glucose 133 mg/dL (74-99); Non-African American GFR(CKD) >90 (>60 ml/min/1.73 sqM); Sodium 136 mmol/L (137-145)
--- NOTE | 2024-06-08 09:35 | P.PN ---
Subjective Progress Note Date: 06/08/24 Principal diagnosis: Left-sided empyema with pigtail catheter placed by IR, left-sided trapped lung after fluid removal, acute hypoxic respiratory failure, paroxysmal atrial fibril lation. History of multiple sclerosis with episodes of unresponsiveness, hypertension, hyperlipidemia, fibromyalgia, previous tobacco dependence, anxiety POD #1 bronchoscopy, left video assisted thorascopic decortication The patient was seen and examined this morning sitting up in bed on the cardiac stepdown unit in no acute distress although she does complain of expected postoperative pain. Currently in sinus rhythm, hemodynamically stable, remains on 2 L nasal cannula with oxygen saturation in the high 90s. Left-sided anterior and posterior chest tubes remain, no air leaks present. Chest x-ray reviewed. No other new concerns. Objective - Vital Signs Vital signs: Vital Signs Temp 98 F 06/08/24 08:15 Pulse 88 06/08/24 08:30 Resp 15 06/08/24 08:15 BP 109/57 06/08/24 08:15 Pulse Ox 95 06/08/24 08:15 FiO2 40 05/29/24 16:00 Intake & Output 06/07/24 06/08/24 06/08/24 18:59 06:59 18:59 Intake Total 1400 Output Total 1540 136 45 Balance -140 -136 -45 Weight 54.6 kg Intake: IV 1400 Output: Chest Tube Drainage 285 136 45 Chest Tube Left Anterior 55 6 5 Chest Chest Tube Left Posterior 230 130 40 Chest Urine 900 Estimated Blood Loss 355 ABP, PAP, CO, CI - Last Documented Arterial Blood Pressure 121/88 - Exam CONSTITUTIONAL: Appears mostly comfortable, cooperative, no acute distress RESPIRATORY: Lungs sounds diminished bilaterally. Respirations even, nonlabored. Currently on 2 L nasal cannula with oxygen saturation 99%. Barely able to achieve 500 mL on incentive spirometry. Strong cough. CARDIOVASCULAR: S1, S2 present. Regular rate and rhythm, sinus rhythm on telemetry. Palpable peripheral pulses bilaterally. No edema present. No calf pain or tenderness noted. SCDs present. GASTROINTESTINAL: Abdomen soft, nontender, nondistended. Active bowel sounds present 4 quadrants. Tolerating diet. Positive bowel movement / GENITOURINARY: Continues to void clear, yellow urine INTEGUMENTARY: Skin is warm and dry with evidence of good perfusion NEUROLOGIC: Cranial nerves II through XII intact MUSKULOSKELETAL: Able to move all extremities, strength equal bilaterally PSYCHIATRIC: Alert and oriented to person place and time, appropriate affect, intact judgment and insight INVASIVE LINES AND TUBES: Anterior and posterior left pleural chest tubes present and connected to wall suction, no air leaks present. Anterior pleural chest tube with 6 mL serosanguineous drainage overnight, 70 mL since surgery. Posterior pleural chest tube with 140 mL serosanguineous drainage overnight, 420 mL since surgery. - Allied health notes Allied health notes reviewed: nursing - Labs CBC & Chem 7: 06/08/24 07:53 06/08/24 07:53 Labs: Abnormal Lab Results - Last 24 Hours (Table) 06/07/24 06/07/24 06/07/24 Range/Units 11:32 12:37 14:30 WBC 17.5 H (3.8-10.6) k/uL RBC 2.66 L (3.80-5.40) m/uL Hgb 8.2 L (11.4-16.0) gm/dL Hct 27.1 L (34.0-46.0) % MCV 101.9 H (80.0-100.0) fL MCHC 30.4 L (31.0-37.0) g/dL RDW 16.6 H (11.5-15.5) % Neutrophils # 16.2 H (1.3-7.7) k/uL Lymphocytes # 0.5 L (1.0-4.8) k/uL ABG pCO2 51 H (35-45) mmHg ABG pO2 71 L (83-108) mmHg ABG HCO3 30 H (21-25) mmol/L ABG Total CO2 31 H (19-24) mmol/L Sodium (137-145) mmol/L Potassium (3.5-5.1) mmol/L Creatinine (0.52-1.04) mg/dL Glucose (74-99) mg/dL POC Glucose (mg/dL) 165 H (70-110) mg/dL Calcium (8.4-10.2) mg/dL 06/07/24 06/07/24 06/07/24 Range/Units 14:30 16:20 16:46 WBC (3.8-10.6) k/uL RBC (3.80-5.40) m/uL Hgb (11.4-16.0) gm/dL Hct (34.0-46.0) % MCV (80.0-100.0) fL MCHC (31.0-37.0) g/dL RDW (11.5-15.5) % Neutrophils # (1.3-7.7) k/uL Lymphocytes # (1.0-4.8) k/uL ABG pCO2 (35-45) mmHg ABG pO2 (83-108) mmHg ABG HCO3 (21-25) mmol/L ABG Total CO2 (19-24) mmol/L Sodium 133 L (137-145) mmol/L Potassium 5.3 H 5.3 H (3.5-5.1) mmol/L Creatinine 0.35 L (0.52-1.04) mg/dL Glucose 146 H (74-99) mg/dL POC Glucose (mg/dL) 125 H (70-110) mg/dL Calcium 8.0 L (8.4-10.2) mg/dL 06/07/24 06/08/24 06/08/24 Range/Units 20:03 07:53 07:53 WBC 14.1 H (3.8-10.6) k/uL RBC 2.56 L (3.80-5.40) m/uL Hgb 7.7 L (11.4-16.0) gm/dL Hct 26.4 L (34.0-46.0) % MCV 103.0 H (80.0-100.0) fL MCHC 29.1 L (31.0-37.0) g/dL RDW 16.7 H (11.5-15.5) % Neutrophils # 11.1 H (1.3-7.7) k/uL Lymphocytes # (1.0-4.8) k/uL ABG pCO2 (35-45) mmHg ABG pO2 (83-108) mmHg ABG HCO3 (21-25) mmol/L ABG Total CO2 (19-24) mmol/L Sodium 136 L (137-145) mmol/L Potassium (3.5-5.1) mmol/L Creatinine 0.40 L (0.52-1.04) mg/dL Glucose 133 H (74-99) mg/dL POC Glucose (mg/dL) 143 H (70-110) mg/dL Calcium 8.2 L (8.4-10.2) mg/dL - Imaging and Cardiology Chest x-ray: image reviewed Assessment and Plan Assessment: Left-sided empyema with pigtail catheter placed by IR, status post bronchoscopy, left video assisted thorascopic decortication Left-sided trapped lung after fluid removal Acute hypoxic respiratory failure Multiple sclerosis with episodes of unresponsiveness Hypertension Hyperlipidemia Fibromyalgia Previous tobacco dependence Anxiety Paroxysmal atrial fibrillation, initiated on Eliquis, last dose 06/05 Plan: Chest tubes placed to waterseal this morning, will discontinue anterior chest tube, continue left-sided posterior chest tube to waterseal for another 24 hours, monitor output Wean O2 as tolerated, encourage incentive spirometry use 10 times every hour while awake, bronchodilators/steroids/antibiotics per pulmonology Eliquis not to be restarted until after both chest tubes have been removed Increase activity, patient should be out of bed during the day, ambulate as tolerated Pain control per current medication regimen GI/DVT prophylaxis Medical management of other comorbidities per internal medicine, pulmonology, cardiology
[2024-06-08 11:33] LABS: Glucose,Whole Blood 117 mg/dL (70-110)
--- NOTE | 2024-06-08 14:15 | P.PN ---
Subjective Progress Note Date: 06/08/24 Principal diagnosis: Acute hypoxic respiratory failure secondary to pneumonia/empyema with loculated left-sided pleural effusion 63-year-old female seen this morning in consultation. The patient was seen initially in the emergency department, on May 25. She apparently came in with complaints of shortness of breath, and low saturations. The patient has been treated recently for bronchitis with steroids and antibiotics. This morning, a rapid response was called on this patient, and, the charge nurse called me, to tell me that the patient would benefit from Lasix, and BiPAP. That was done initially, but subsequent to that, another rapid response was called on this pa tient, and the patient needed to be transferred to the intensive care unit, for intubation and mechanical ventilation. Currently, she is on volume assist- control, rate 20, tidal volume 350, FiO2 100%, PEEP of 5. She is on a Cardizem drip at 10 mg an hour for atrial fibrillation, propofol at 60 mcg/kg/min, and she is receiving some fluid, i.e. saline, at 1 L, as a fluid bolus. Afterwards, she will be switched to lactated Ringer's at 100 cc an hour. She had a an arterial line placed, and a central line placed. We did a right radial arterial line, and a left subclavian triple-lumen catheter. She was intubated by the [employer]. Current labs include a white count of 54.7, hemoglobin 8.7, hematocrit 29.7, and a platelet count of 605,000. Initial blood gases showed a pO2 of 146, pCO2 of 61, and pH is 7.24. The rate was increased from 28 to 24 breaths/min. In addition, the FiO2 was dropped down to 70%. Sodium 138, potassium 4.9, chlorides 102, CO2 28, BUN 18, creatinine 0.45. Glucose is 288. Calcium is 8.9. Lactic acid 1.3. The left chest reveals a pleural effusion, with possible loculations. An ultrasound was ordered. In addition, the patient had bronchoscopy, with airway examination, therapeutic lavage, BAL, brushings left lower lobe, and endobronchial and transbronchial biopsies left lower lobe. Progress note dated May 27, 2024. 63-year-old female seen in consultation yesterday. Please see the note above. The patient developed lopez respiratory failure, and was intubated, yesterday, May 26. She remains on mechanical ventilator. She is on volume assist-control , rate 24, tidal volume 350, FiO2 60%, to be reduced down to 50%, PEEP of 5. Blood gases show pO2 of 112, pCO2 44, pH is 7.37. The patient continues on propofol at 60 mcg/kg/min, norepinephrine at 7 mcg/min, fentanyl at 2 mcg/kg/h, LR at 100 cc an hour. The patient is on vancomycin, and we add cefepime. The patient had a left-sided thoracentesis today. 1.5 L of milky slightly green fluid was removed from the left pleural space. The patient's procalcitonin level is elevated 9.74. Current labs include a white count of 73.5, hemoglobin 6.6, hematocrit 22.2, platelet count 452,000. The patient will get 1 unit of PRBCs. In addition, sodium 139, potassium 4.8, chlorides 108, CO2 21, anion gap 10, BUN 21, creatinine 0.38. Calcium is 8.3. Magnesium is 1.9. Cultures are thus far negative. The postthoracentesis chest x-ray shows an improved left- sided pleural fluid collection, and a small to moderate size left-sided hydropneumothorax. Progress note dated May 28, 2024. 63-year-old female seen in consultation 2 days ago. The patient remains on mechanical ventilator. She is seen today in room 262. She is on volume assist- control, rate 24, tidal volume 350, FiO2 50%, PEEP of 5. Blood gases show pO2 119, pCO2 45, pH is 7.40. The FiO2 will be reduced at 40%. She is sedated with propofol at 65 mcg/kg/min, norepinephrine at 1.2 mcg/min, and fentanyl at 2 mcg/kg/h. She is getting lactated Ringer's at 100 cc an hour, and vital high- protein at 33 cc an hour. She continues on cefepime, and vancomycin. Current laboratory data includes a white count 48.1, hemoglobin 7.5, hematocrit 25.6, and platelet count 382,000. Sodium 140, potassium 4.4, chlorides 111, CO2 26, BUN 24, creatinine 0.42. Glucose is 215. Calcium 8.2. Cultures thus far are negative. That includes bronchoscopy results. Chest x-ray shows a relatively clear right lung. There is some haziness, on the left side, with a left-sided pleural effusion. She did undergo thoracentesis yesterday. On 05/29/2024, seen the patient for a follow-up. This morning, the patient remains intubated on mechanical ventilator. I reviewed the records and the patient came to us with a complicated loculated large left-sided pleural effusion which was drained and the fluid is an exudate with negative cultures. Subsequent chest x-ray from today still showing some loculated left-sided pleural effusion. The patient remains on a combination of antibiotics utilizing cefepime and vancomycin. This morning, the patient remains on propofol running at 60 mcg/kg/min and fentanyl at 2 mcg/kg/h. Patient remains on lactated Ringer at rate of 100 cc an hour. Norepinephrine drip has been discontinued approximately 24 hours ago. She is on assist-control mode of mechanical ventilation at rate of 24, tidal volume of 350, FiO2 of 40% with a PEEP of 5 and a blood gases showing a pH of 7.41 with a pCO2 of 46 and pO2 of 77. The white cell count is down to 31 and the hemoglobin is at 8 with a platelet count of 368. The procalcitonin level is downtrending from 9.7 down to 6.7. The rest of the electrolytes are stable with a BUN of 25 and a creatinine of 0.4 and a serum bicarb of 28. The patient is arousable while being off of sedation. Will check weaning parameters and assess her candidacy for further weaning. The patient is on vital high-protein at rate of 33 cc an hour. Today's evaluation of 05/30/2024, the patient is being seen for a follow-up. The patient was weaned off the mechanical ventilator and the patient was extubated to nasal cannula yesterday without any major difficulties and the patient is currently on 40s of oxygen nasal cannula. The follow-up chest x-ray still showing a persistent left-sided pleural effusion along with loculation. There is also some increase in small right-sided pleural effusion. The microbial cultures from the pleural fluid came back positive for alpha hemolytic Streptococcus. Antibiotic adjustments will be done accordingly. Hemodynamically stable. No significant chest pain. No discomfort. The patient remains on bronchodilators. The patient remains on IV Solu-Medrol. Blood work from today shows improvement in the white cell count which is currently down to 24 with a hemoglobin of 8.3 and a platelet count of 373, BUN is 24 and a creatinine of 0.4 and a electrolytes are all within normal limits. Awake and alert and communicating and using the incentive spirometer. 05/31/2024, the patient is being seen for a follow-up. The patient is still recov ering from an extensive left lung pneumonia that was complicated by empyema and this is likely secondary to streptococcal pneumonia. Her white cell count is improving. Her respiratory status is stable. Hemodynamically stable. The patient is currently on 4 L of oxygen by nasal cannula with a pulse ox of 95%. Meanwhile, a follow-up CAT scan of the chest was done and the patient was found to have a loculated left pleural effusion which has diminished in size. There is still a loculated pocket in the posterior left lung base. Trace left-sided pneumothorax. There is also an ongoing consolidation and areas of scattered groundglass opacities correlating with pneumonia. Small right-sided pleural effusion is also seen. The patient's blood work from today shows a white cell count of 24 with a hemoglobin 8.3 and a platelet count of 373. Electrolytes are all stable and within normal limits. Renal function is also stable. The patient remains on IV antibiotics. The patient remains on IV Rocephin 2 g every 24 hours. Rest of the medications are essentially unchanged. Remains on IV So abbie-Medrol 60 mg every 6 hours. 06/01/2024, patient is being seen for a follow-up. The patient feeling well. No specific complaints. She remains on oxygen 4 L/min nasal cannula. No chest pain. No shortness of breath. I reviewed the CAT scan of the chest that was done yesterday and I requested an interventional radiology consultation for the pigtail catheter insertion. Unfortunately, this has not been completed and no IR services are available for this current holiday. I am hoping that this can be completed by tomorrow. Meanwhile, the patient is doing well. The patient remains on antibiotics with IV Rocephin. No new labs from today. Clinically stable. Hemodynamically stable. No pleurisy. No hemoptysis. On today's evaluation of 06/02/2024, the patient is going to undergo a pigtail catheter insertion regarding the loculated pocket of empyema in the left lung base. Case was discussed with interventional radiology. Meanwhile, the patient oxygenation status is getting worse. Earlier this morning, the patient was on 4 L and she was brought up to 14 L and currently she is down to 11 L of oxygen by nasal cannula with a pulse ox of 94%. The patient has no specific complaints. She remains on IV Rocephin. She has been on bronchodilators. She has been on steroids. Her white cell count is currently at 28 with a hemoglobin 11.7 and a platelet count of 279. BUN is 13 with a creatinine of 0.8. Repeat chest x-ray was done today and the patient was found to have a large loculated empyema in the left lung. Small pleural effusion was also noted on the right lung base. Noted the loculation has developed in the left lung compared to the earlier chest x-ray and the patient is going to undergo a pigtail catheter insertion for further drainage. No chest pain. No fever or chills. No other new complaints otherwise for now. On 06/03/2024, the patient is calm and comfortable on 5 L of oxygen by nasal cannula. Pigtail catheter was inserted yesterday and the patient produced approximately 950 cc of pus from the right hemithorax. Follow-up chest x-ray from today shows significant reduction of the left-sided empyema and there is a small left-sided pneumothorax possibly trapped lung. There is some residual consolidation in the lung base bilaterally. Clinically patient is doing well. The white cell count down to 16, hemoglobin 9.1, BUN is 10 with a creatinine of 0.35 and the patient remains on IV Rocephin. No other significant events overnight. She remains on bronchodilators. She remains on steroids. 06/04/2024, I am seeing the patient for a follow-up. The patient is doing well. Patient continues to have active drainage from the pigtail catheter. The c atheter drained approximately 730 cc overnight. The patient received a dose of thrombolytic yesterday without any major difficulties. This improve the output from the pigtail catheter. A repeat chest x-ray was done today and the findings are essentially stable. The patient has a stable loculated left-sided pneumothorax. No new labs are available from today. The pleural fluid was again sent for culture. The most recent culture was positive for Streptococcus and the patient is currently on IV Rocephin 2 g every 24 hours. She is awake and alert and communicating. Some limited pain and discomfort over the left chest and the pain is tolerable. She is on 40s of oxygen by nasal cannula with a pulse ox of 97%. Patient was evaluated today on 06/05/2024, patient is basically about the same, continues to have a significant amount of drainage seems to be purulent drainage from her left-sided pleural space/empyema, patient remains on antibiotics, she has now a relatively good sized left-sided pneumothorax and I suspect that this is a trapped lung since the pneumothorax seems to be the area where the fluid was present to begin with patient is on 3 L nasal cannula, O2 sat is 95%. Continues to have a pigtail catheter in place. And draining significant amount of fluid. The culture on the fluid came back positive for Streptococcus intermedius, patient did receive lytic therapy, however considering the worsening chest x-ray, I am recommending a l thoracic surgery consultation, wondering if the patient may eventually require decortication clinically, the patient does not seem to be in any distress Patient was evaluated 06/06/2024, clinically about the same, patient was seen by thoracic surgery, and now she is scheduled for left thoracotomy with decortication mostly because of her persistent empyema and loculated pleural effusion. And not to mention the patient seems to have a trapped lung. Patient is not improving much with medical therapy, and surgery is strongly recommended patient is on 3 L nasal cannula, hemodynamically stable, does not seem to be in distress, continues to have significant amount of purulent drainage from the left sided chest tube into the Pleur-evac continues to have what seems to be a pneumothorax/trapped lung Patient was evaluated today on 06/07/2024, patient is status post left video- assisted thoracoscopic decortication, this was done today by Dr. Castro. I saw the patient in the recovery room, reviewed her ABG, advised to place on few liters nasal cannula and titrate to O2 saturation just above 90%. Patient seems to be in pain, however her postoperative chest x-ray shows much improvement and complete reexpansion of the left lung. No acute process was noted. Chest tubes seem to be in proper position Patient was evaluated today on 06/08/2024, patient is doing fairly well. She is now postoperative day #1, bronchoscopy with left video-assisted thoracoscopic decortication done by Dr. Castro. Patient continues to have chest tube in place, will dynamically stable, no air leaks noted in the chest tubes. Chest x-ray showed complete reexpansion of the left lungWBC count is 14.1 hemoglobin 7.7 basic metabolic profile is normal renal profile is normal Objective - Vital Signs Vital signs: Vital Signs Temp 98.4 F 06/08/24 12:00 Pulse 90 06/08/24 12:00 Resp 15 06/08/24 12:00 BP 110/65 06/08/24 12:00 Pulse Ox 96 06/08/24 12:00 FiO2 40 05/29/24 16:00 Intake & Output 06/07/24 06/08/24 06/08/24 18:59 06:59 18:59 Intake Total 1400 Output Total 1540 136 50 Balance -140 -136 -50 Weight 54.6 kg Intake: IV 1400 Output: Chest Tube Drainage 285 136 50 Chest Tube Left Anterior 55 6 10 Chest Chest Tube Left Posterior 230 130 40 Chest Urine 900 Estimated Blood Loss 355 ABP, PAP, CO, CI - Last Documented Arterial Blood Pressure 121/88 - Exam General: The patient is awake and alert, in no distress, and does not appear acutely ill. On 2 L nasal cannula Skin: Skin is warm and dry and no rashes or lesions are noted. Eye: Pupils are equal, round and reactive to light, extra-ocular movements are intact; there is normal conjunctiva bilaterally. Ears, nose, mouth and throat: There are moist mucous membranes and no oral lesions. Neck: The neck is supple, there is no tenderness or JVD. Cardiovascular: There is a regular rate and rhythm. No murmur, rub or gallop is appreciated. Respiratory: Left-sided chest tubes noted to be in proper position and attached to Pleur-evac. Gastrointestinal: Soft, non-distended, non-tender abdomen without masses or organomegaly noted. There is no rebound or guarding present. Bowel sounds are unremarkable. Back: There is no tenderness to palpation in the midline. There is no obvious deformity. Musculoskeletal: Normal ROM, no tenderness, There is no pedal edema. There is no calf tenderness or swelling. No cords were appreciated. Neurological: CN II-XII intact, Cranial nerves III through XII are intact. There are no obvious motor or sensory deficits. Coordination appears grossly intact. Speech is normal. Psychiatric: Cooperative, appropriate mood & affect, normal judgment. - Labs CBC & Chem 7: 06/08/24 07:53 06/08/24 07:53 Labs: Abnormal Lab Results - Last 24 Hours (Table) 06/07/24 06/07/24 06/07/24 Range/Units 14:30 14:30 16:20 WBC 17.5 H (3.8-10.6) k/uL RBC 2.66 L (3.80-5.40) m/uL Hgb 8.2 L (11.4-16.0) gm/dL Hct 27.1 L (34.0-46.0) % MCV 101.9 H (80.0-100.0) fL MCHC 30.4 L (31.0-37.0) g/dL RDW 16.6 H (11.5-15.5) % Neutrophils # 16.2 H (1.3-7.7) k/uL Lymphocytes # 0.5 L (1.0-4.8) k/uL Sodium 133 L (137-145) mmol/L Potassium 5.3 H (3.5-5.1) mmol/L Creatinine 0.35 L (0.52-1.04) mg/dL Glucose 146 H (74-99) mg/dL POC Glucose (mg/dL) 125 H (70-110) mg/dL Calcium 8.0 L (8.4-10.2) mg/dL 06/07/24 06/07/24 06/08/24 Range/Units 16:46 20:03 07:53 WBC 14.1 H (3.8-10.6) k/uL RBC 2.56 L (3.80-5.40) m/uL Hgb 7.7 L (11.4-16.0) gm/dL Hct 26.4 L (34.0-46.0) % MCV 103.0 H (80.0-100.0) fL MCHC 29.1 L (31.0-37.0) g/dL RDW 16.7 H (11.5-15.5) % Neutrophils # 11.1 H (1.3-7.7) k/uL Lymphocytes # (1.0-4.8) k/uL Sodium (137-145) mmol/L Potassium 5.3 H (3.5-5.1) mmol/L Creatinine (0.52-1.04) mg/dL Glucose (74-99) mg/dL POC Glucose (mg/dL) 143 H (70-110) mg/dL Calcium (8.4-10.2) mg/dL 06/08/24 06/08/24 Range/Units 07:53 11:32 WBC (3.8-10.6) k/uL RBC (3.80-5.40) m/uL Hgb (11.4-16.0) gm/dL Hct (34.0-46.0) % MCV (80.0-100.0) fL MCHC (31.0-37.0) g/dL RDW (11.5-15.5) % Neutrophils # (1.3-7.7) k/uL Lymphocytes # (1.0-4.8) k/uL Sodium 136 L (137-145) mmol/L Potassium (3.5-5.1) mmol/L Creatinine 0.40 L (0.52-1.04) mg/dL Glucose 133 H (74-99) mg/dL POC Glucose (mg/dL) 117 H (70-110) mg/dL Calcium 8.2 L (8.4-10.2) mg/dL Assessment and Plan Assessment: Impression: Status post video-assisted thoracoscopic left lung decortication postoperative day #1 Acute hypoxic respiratory failure Acute left lower lobe pneumonia with empyema Loculated left pleural effusion Left-sided pneumothorax, possibly trapped lung Status post bronchoscopy biopsy and BAL with negative malignancy History of left-sided thoracentesis and pigtail catheter placement Leukocytosis secondary to above Benign essential hypertension Tobacco dependence syndrome Dyslipidemia History of fibromyalgia Migraine cephalgia Ulcerative colitis History of generalized anxiety disorder Paroxysmal atrial fibrillation Recommendation: Continue present supportive care measures Continue antibiotics Daily monitoring of x-rays of the chest Continue bronchodilators Continue oxygen and titrate accordingly Continue prednisone at 10 mg daily for now Postoperative incentive spirometry Early ambulation Will continue to follow. Time with Patient: Less than 30
--- NOTE | 2024-06-08 14:53 | P.PN ---
Subjective Progress Note Date: 06/08/24 This is a pleasant 63 years old female with past medical history of multiple medical problems including hypertension, hyperlipidemia, degenerative disc disease, fibromyalgia, multiple sclerosis, anxiety and depression. Patient presents because of worsening dyspnea for 2 days. Patient has a known case of bronchitis which is chronic and there is a 4 reported at home about 3 days prior to arrival to the hospital. Patient currently is in severe respiratory distress and cannot provide information, varnish melter helper A-team was called for worsening dyspnea. Patient oxygen requirement went up to 6 L/min and was getting worse so one-time dose of IV Lasix provided and she was placed on BiPAP, she could tolerated only for 10 minutes and then she started becoming tachycardic and tachypneic with a breathing rate between 40s to 50s. She was hypoxic diaphoretic, sweating and pale. Another A-team was called and patient was moved to the ICU where she got emergent intubated. Staff tried to call the son and left a message I called the son myself Mr. Jefferson at [phone] and left a message to call back. Information was obtained from staff and medical record. Patient was afebrile, on admission She has significant worsening leukocytosis up to 40,000, hemoglobin dropped to 8.5. Platelet count were up to 561 . Liver enzymes mildly elevated. D-dimer was elevated 5.5 and CTA of the chest was obtained showing significant abnormalities : No pulmonary embolism, large left pleural effusion, loculated with complete left lung collapse with possible splenic involvement and enlarged mediastinal lymphadenopathy findings suspicious for malignancy 05/27/2024 Patient got extubated yesterday Patient today was still drowsy lethargic somewhat confused and very weak. She has large pleural effusion and she underwent thoracocentesis today with 1.5 of pleural fluid aspirated and sent for studies. Her WBC jumped up to 73 K and hemoglobin down to 6.6. As such her IV vancomycin continued, IV cefepime added and patient received 1 unit of blood transfusion today Patient also kept on IV Solu-Medrol and Ringer lactate at 100 mL/h ProCalcitonin is elevated 6.7%. 05/28/2024 Patient remains in the ICU, it looks like she was intubated the night before She remains on IV Solu-Medrol and broad-spectrum antibiotic with IV vancomycin and cefepime. No IV fluids running. No anticoagulation because of the bleeding. Hemoglobin improved 6.6 up to 7.5 Leukocytosis improving 73 down to 48 05/29/24 Patient remains in the ICU intubated and sedated, She is still getting broad-spectrum antibiotic with IV vancomycin and cefepime She remains on IV Solu-Medrol Chest x-ray showing increased haziness on the left side lung and both basal areas more on the left side. 05/31/2024 Patient breathing is better today, she talks freely Has frequent bowel movement not sure if his diarrhea about 3 to 4/day However her main problem is the breathing and the pneumonia looks better but it is complicated empyema Interventional radiologist has been consulted for possible pigtail tube insertion. 06/01/24 pt states Breathing is better, currently she is on 4 L, still has some decreased air entry on the left side. She has recent diarrhea controlled with Lomotil She has significant leukocytosis yesterday but is improving, IV Solu-Medrol lowered to 40 mg twice daily Repeat WBC from today is pending She remains on ceftriaxone based on culture results showing alphahemolytic Streptococcus. 06/02/24 Patient oxygen requirement went up from 4 L/min up to 14 L/min Patient went down for IR for pigtail placement Patient still complaining from dyspnea. She has bilateral crepitation Labs showing leukocytosis 28,000, hemoglobin 8.3 She remains on ceftriaxone and IV Solu-Medrol 40 mg and IV Protonix 06/03/2024 Patient is status post rest left upper chest pigtail placement yesterday. Today's postop day #1 Repeat chest x-ray looks catheter in place and there is significant reduction in the size of the fluid collection most likely empyema. She remains on 8 L oxygen this morning lowered to 5 L compared to 4 L yesterday. No significant tachypnea. No chest pain Patient with Eliquis resumed last night after the procedure. She is on ceftriaxone. Patient also on IV Solu-Medrol 40 mg 06/04/24 Patient with likely pleural effusion on the left side/empyema. S/p thoracocentesis however there was still some particulate therefore IR team consulted tube was placed 2 days ago. There is about 1800 cc of purulent discharge collected so far. Patient breathing is better currently on 3 L Currently chest pain is slightly worse after Patient is alternating [place] and Dilaudid 06/05/2024 Patient is seen in follow-up today with pulmonary following. Patient continues with chest tube on the left chest wall with significant amount of purulent drainage noted. CT surgery consulted for possible thoracotomy and/or d ecortication. Patient was currently on Eliquis which needs to be held for at least 48 hours with plans on surgical intervention tentatively for 06/07/2024. Patient is afebrile with no reports of worsening chest pain or shortness of breath. Will continue on antibiotics and medication regimen at this time. Recommend PT/OT therapy evaluation and will discuss further with case management once patient is more stable for discharge. Patient has had prolonged hospitalization and would likely benefit from ECF for continued strength and mobility. 06/06/2024 Patient is seen and evaluated in follow-up this morning currently sitting up in the chair. Patient continues with a chest tube on the left with purulent drainage although some of it is clearing. Patient being followed and evaluated by CT surgery with plans of surgical intervention on 06/07/2024. Continue holding anticoagulation. Patient is afebrile with no reports of chest pain or worsening shortness of breath. Patient does have a weak cough and encouraged to continue coughing and deep breathing along with incentive spirometer use. Recommend PT/OT therapy evaluation. Patient will be n.p.o. at midnight and will await surgical report. 06/07/2024 Patient is seen this morning n.p.o. and scheduled to undergo VATS procedure with decortication with cardiothoracic surgery today. Patient continues on antibiotics left-sided empyema. Patient continues with purulent drainage and noted chest tube and will await surgical report. Pulmonary following as well and will continue on as well as continued breathing treatments. Patient with significant weakness and prolonged hospitalization recommending ECF on discharge. Patient is agreeable and case management following and will be likely going to ECF on discharge. Repeat chest x-ray and continue to monitor closely. Encouraged to increase activity as tolerated getting up out of the bed more often with frequent walks. 06/08/2024 Patient is seen and evaluated in follow-up status post lung decortication on the left and continues with 2 chest tubes with serous drainage noted. Patient is maintained on antibiotics in the form of ceftriaxone and will continue for now, currently awaiting repeat wound cultures. Patient is continued on oral prednisone along with breathing inhalational treatments with pulmonary following closely. Encouraged incentive spirometer use and increase activity as tolerated. Patient has been up and walking and encouraged the patient to sit up in the chair more often. Patient is reporting severe pain on the chest wall and reports the IV Dilaudid only lasts for short period and then the pain is 10/10. Will resume patient's home Lyrica and continue with [place] and current regimen. Plan is for patient to go to [facility] once stabilized and discharged. Review of systems: Constitutional: No reports of fatigue, fever, or chills Cardiovascular: No reports of chest pain or palpitations Respiratory: No reports of worsening shortness of breath or cough, reports extreme chest wall pain at the chest tube site x 2 GI: No reports of nausea, vomiting, or diarrhea : No reports of dysuria or retention Neurovascular: reports of generalized weakness All medications have been reviewed Physical exam: GENERAL: The patient is awake, alert and oriented x 3, well-developed, thin built, elderly appearing, ill-appearing, tearful HEENT: Pupils are round and equally reacting to light. EOMI. No scleral icterus. No conjunctival pallor. Normocephalic, atraumatic. No pharyngeal erythema. No thyromegaly. CARDIOVASCULAR: S1 and S2 muffled PULMONARY: Diminished breath sounds bilaterally otherwise chest is clear to auscultation, no wheezing , no crackles. Weak inspiration. ABDOMEN: Soft, nontender, nondistended, normoactive bowel sounds. No palpable organomegaly. Thin MUSCULOSKELETAL: No joint swelling or deformity. EXTREMITIES: No cyanosis, clubbing, or pedal edema. NEUROLOGICAL: Gross neurological examination did not reveal any focal deficits. Diffusely weak SKIN: No rashes. no petechiae. Assessment: Large loculated left pleural effusion with associated complete collapse of the left lung with mediastinal lymphadenopathy suspicious for malignancy is high. Also there is involvement of the spleen and diaphragm. Status post thoracocentesis on 05/27 with 1.5 L removed. S/P bronchoscopy, with BAL, brushings, biopsies, left lower lobe. Empyema of the left, status post chest tube, status post thorascopic left lung decortication with CT surgery 06/07/2024, continues with 2 chest tubes Severe acute hypoxic respiratory failure, present on admission. Requiring intubation and mechanical ventilation. Successfully extubated currently on 3 L via nasal cannula Acute COPD exacerbation Severe leukocytosis with findings above pneumonia is highly suspected. worsening anemia requiring 1 unit of blood transfusion on 05/27 New onset A-fib and RVR, currently rate controlled but no anticoagulation for severe anemia Hypertension Hyperlipidemia Degenerative disc disease Fibromyalgia Multiple sclerosis Anxiety and depression Moderate calorie protein malnutrition with a BMI of 19.8 Gait dysfunction with generalized weakness GI prophylaxis DVT prophylaxis Full code Plan: Patient is status post video-assisted thorascopic left lung decortication, postop day [address] surgery and pulmonary following Patient continues with 2 chest tubes at this time currently awaiting repeat cultures which are pending Follow-up respiratory culture Patient is reporting severe 10/10 pain. Reviewed medications and will resume home dose of Lyrica and continue with current medications. Patient does take a number of significant high-dose medications including [place] 10 and does have IV Dilaudid. Patient reports the IV Dilaudid does not last very long and is in severe 10/10 pain within an hour. Encouraged incentive spirometer use at least 10 times every hour while awake IV Solu-Medrol switched to prednisone with pulmonary following, continue breathing inhalational treatments as well Continue with antibiotics with ceftriaxone as sputum culture growing Streptococcus Cardiology on the case for A-fib RVR but no anticoagulation for anemia Pulmonary, cardiology and hematology/oncology following Recommend PT/OT therapy evaluation and case management as patient will need ECF on discharge. Patient has had prolonged hospitalization and will likely require ECF on discharge for continued strength and mobility. Patient has been instructed to increase activity as tolerated get up out of the bed more often chair. Will discuss further with case management once cleared by consultations Due to multiple complex medical issues, prognosis is guarded The impression and plan of care has been dictated by Carol Landaverde, Nurse Practitioner as directed. Dr. Bowen MD I have performed a history and examination and MDM of this patient, discussed the same with the dictator, and agree with the dictator's assessment and plan as written ,documented as a scribe. Based on total visit time, I have performed more than 50% of the visit. Objective - Vital Signs Vital signs: Vital Signs Temp 98.4 F 06/08/24 12:00 Pulse 90 06/08/24 12:00 Resp 15 06/08/24 12:00 BP 110/65 06/08/24 12:00 Pulse Ox 96 06/08/24 12:00 FiO2 40 05/29/24 16:00 Intake & Output 06/07/24 06/08/24 06/08/24 18:59 06:59 18:59 Intake Total 1400 Output Total 1540 136 50 Balance -140 -136 -50 Weight 54.6 kg Intake: IV 1400 Output: Chest Tube Drainage 285 136 50 Chest Tube Left Anterior 55 6 10 Chest Chest Tube Left Posterior 230 130 40 Chest Urine 900 Estimated Blood Loss 355 ABP, PAP, CO, CI - Last Documented Arterial Blood Pressure 121/88 - Labs CBC & Chem 7: 06/08/24 07:53 06/08/24 07:53 Labs: Abnormal Lab Results - Last 24 Hours (Table) 06/07/24 06/07/24 06/07/24 Range/Units 14:30 14:30 16:20 WBC 17.5 H (3.8-10.6) k/uL RBC 2.66 L (3.80-5.40) m/uL Hgb 8.2 L (11.4-16.0) gm/dL Hct 27.1 L (34.0-46.0) % MCV 101.9 H (80.0-100.0) fL MCHC 30.4 L (31.0-37.0) g/dL RDW 16.6 H (11.5-15.5) % Neutrophils # 16.2 H (1.3-7.7) k/uL Lymphocytes # 0.5 L (1.0-4.8) k/uL Sodium 133 L (137-145) mmol/L Potassium 5.3 H (3.5-5.1) mmol/L Creatinine 0.35 L (0.52-1.04) mg/dL Glucose 146 H (74-99) mg/dL POC Glucose (mg/dL) 125 H (70-110) mg/dL Calcium 8.0 L (8.4-10.2) mg/dL 06/07/24 06/07/24 06/08/24 Range/Units 16:46 20:03 07:53 WBC 14.1 H (3.8-10.6) k/uL RBC 2.56 L (3.80-5.40) m/uL Hgb 7.7 L (11.4-16.0) gm/dL Hct 26.4 L (34.0-46.0) % MCV 103.0 H (80.0-100.0) fL MCHC 29.1 L (31.0-37.0) g/dL RDW 16.7 H (11.5-15.5) % Neutrophils # 11.1 H (1.3-7.7) k/uL Lymphocytes # (1.0-4.8) k/uL Sodium (137-145) mmol/L Potassium 5.3 H (3.5-5.1) mmol/L Creatinine (0.52-1.04) mg/dL Glucose (74-99) mg/dL POC Glucose (mg/dL) 143 H (70-110) mg/dL Calcium (8.4-10.2) mg/dL 06/08/24 06/08/24 Range/Units 07:53 11:32 WBC (3.8-10.6) k/uL RBC (3.80-5.40) m/uL Hgb (11.4-16.0) gm/dL Hct (34.0-46.0) % MCV (80.0-100.0) fL MCHC (31.0-37.0) g/dL RDW (11.5-15.5) % Neutrophils # (1.3-7.7) k/uL Lymphocytes # (1.0-4.8) k/uL Sodium 136 L (137-145) mmol/L Potassium (3.5-5.1) mmol/L Creatinine 0.40 L (0.52-1.04) mg/dL Glucose 133 H (74-99) mg/dL POC Glucose (mg/dL) 117 H (70-110) mg/dL Calcium 8.2 L (8.4-10.2) mg/dL
[2024-06-08] MEDS: PREGABALIN 100 MG CAP PO SCH (15:12)
[2024-06-08 16:34] LABS: Glucose,Whole Blood 121 mg/dL (70-110)
[2024-06-08 20:02] LABS: Glucose,Whole Blood 117 mg/dL (70-110)
[2024-06-08] MEDS: DONEPEZIL 10 MG TAB PO SCH (20:02)
--- NOTE | 2024-06-08 22:57 | XR ---
EXAMINATION TYPE: XR chest 1V DATE OF EXAM: 06/08/2024 COMPARISON: 06/07/2024 INDICATION: Post lobectomy TECHNIQUE: Single frontal view of the chest is obtained. FINDINGS: The heart size is normal. The pulmonary vasculature is prominent. Mild infiltrate is present at the left base. Left basilar chest tubes are present. Small right pleura l effusion is present. IMPRESSION: 1. Bibasilar infiltrates. Small right pleural effusion is present. 2. Two left-sided chest tubes present
[2024-06-09 06:02] LABS: Glucose,Whole Blood 117 mg/dL (70-110)
--- NOTE | 2024-06-09 08:07 | XR ---
EXAMINATION TYPE: XR chest 2V DATE OF EXAM: 06/09/2024 COMPARISON: 06/08/2024 INDICATION: Post VATS TECHNIQUE: Frontal and lateral views of the chest are obtained. FINDINGS: The heart size is normal. The pulmonary vasculature is normal. Left lower lobe consolidation is present. There is improving infiltrate at the right base. Minimal ri ght pleural effusion is present. One left-sided chest tube remains. The others been removed. There is some diffuse pleural fluid on the left may be loculated. Small nodular density may be present at the right apex not identified previously. IMPRESSION: 1. Improving right lower lobe infiltrate. Minimal residual tree small effusion remains. 2. Consolidation left base remains present. 3. There may be loculated lateral left pleural fluid.
--- NOTE | 2024-06-09 10:20 | P.PN ---
Subjective Progress Note Date: 06/09/24 Principal diagnosis: Left empyema, left-sided trapped lung after fluid removal, status post left chest pigtail catheter placement by interventional radiology. Past medical history significant for episodes of unresponsiveness, multiple sclerosis followed by Dr. Schwartz, hypertension, hyperlipidemia, fibromyalgia, migraines, ulcerative colitis, lumbar degenerative disc, previous tobacco dependence and anxiety. POD #2 bronchoscopy, left video assisted thorascopic decortication The patient was seen and examined in follow-up today June 09, 2024 at her bedside on the third floor cardiac stepdown unit. Patient is currently laying in bed, is awake, alert, oriented x 3 and is in no acute apparent distress. She reports she feels improved today, can breathe much better, denies complaints of shortness of breath at this time, although is complaining of some surgical type pain to her left chest tube insertion site. Currently rating her pain 4-5 out of 10 on the pain scale. Remote telemetry is showing normal sinus rhythm heart rate 92 bpm. Oxygen saturations are 97% on 2 L nasal cannula and she is achieving 1000 mL on her incentive spirometry with encouragement. Left pleural chest tube remains in place to waterseal. No air leak is present. Draining thin serosanguineous drainage with 120 mL output in the last 24 hours. Chest x- ray results reviewed. The patient reports she has been up to the bedside chair several times yesterday and was already up this morning. Objective - Vital Signs Vital signs: Vital Signs Temp 97.9 F 06/09/24 07:58 Pulse 92 06/09/24 08:24 Resp 20 06/09/24 07:58 BP 90/58 06/09/24 07:58 Pulse Ox 97 06/09/24 08:07 FiO2 40 05/29/24 16:00 Intake & Output 06/08/24 06/09/24 06/09/24 18:59 06:59 18:59 Intake Total 356 Output Total 100 30 0 Balance 256 -30 0 Weight 55.1 kg Intake: Oral 356 Output: Chest Tube Drainage 100 30 0 Chest Tube Left Anterior 10 Chest Chest Tube Left Posterior 90 30 0 Chest ABP, PAP, CO, CI - Last Documented Arterial Blood Pressure 121/88 - Exam CONSTITUTIONAL: Appears comfortable, cooperative, no acute distress. RESPIRATORY: Lungs sounds diminished bilaterally, left greater than right. Respirations symmetrical, nonlabored. Currently on 2 L nasal cannula with oxygen saturation 97%. Achieving 1000 mL on her incentive spirometry with encouragement. Strong cough. CARDIOVASCULAR: S1, S2 present. Regular rate and rhythm, normal sinus rhythm on telemetry. Palpable peripheral pulses bilaterally. No edema present. No calf pain or tenderness noted. SCDs present. GASTROINTESTINAL: Abdomen soft, nontender, nondistended. Active bowel sounds present 4 quadrants. Tolerating diet. Positive bowel movement 06/06. GENITOURINARY: Continues to void clear, yellow urine. INTEGUMENTARY: Skin is warm and dry, no cyanosis or clubbing present. Left thoracic dressings clean, dry and intact. NEUROLOGIC: Cranial nerves II through XII intact, no focal deficits. MUSKULOSKELETAL: Able to move all extremities, strength equal bilaterally. PSYCHIATRIC: Alert and oriented to person place and time, appropriate affect, intact judgment and insight. INVASIVE LINES AND TUBES: Left pleural chest tube present and is to waterseal, no air leaks present. Left pleural chest tube with 120 mL of thin serosanguineous drainage in the last 24 hours. - Allied health notes Allied health notes reviewed: nursing - Labs CBC & Chem 7: 06/08/24 07:53 06/08/24 07:53 Labs: Abnormal Lab Results - Last 24 Hours (Table) 06/08/24 06/08/24 06/08/24 Range/Units 11:32 16:32 20:00 POC Glucose (mg/dL) 117 H 121 H 117 H (70-110) mg/dL 06/09/24 Range/Units 06:01 POC Glucose (mg/dL) 117 H (70-110) mg/dL Microbiology - Last 24 Hours (Table) 06/07/24 10:24 Gram Stain - Preliminary Other - Other Tissue Culture - Preliminary - Imaging and Cardiology Chest x-ray: report reviewed, image reviewed Assessment and Plan Assessment: Left-sided empyema with pigtail catheter placed by IR, status post bronchoscopy, left video assisted thorascopic decortication Left-sided trapped lung after fluid removal Acute hypoxic respiratory failure Multiple sclerosis with episodes of unresponsiveness Hypertension Hyperlipidemia Fibromyalgia Previous tobacco dependence Anxiety Paroxysmal atrial fibrillation, initiated on Eliquis, last dose 06/05 Plan: We will continue her left posterior chest tube to waterseal today. Wean O2 as tolerated, encourage incentive spirometry use 10 times every hour while awake, bronchodilators/steroids/antibiotics per pulmonology. May restart Eliquis once her chest tube has been removed. Increase activity, patient should be out of bed during the day, ambulate as tolerated. Pain control per current medication regimen. GI/DVT prophylaxis. Medical management of other comorbidities per internal medicine, pulmonology, cardiology. More recommendations to follow based on patient's clinical course. Time with Patient: Greater than 30
[2024-06-09 11:27] LABS: Anisocytosis Slight; Basophils % (A) 0 %; Eosinophils # (A) 0.1 k/uL (0-0.7); Eosinophils % (A) 1 %; HCT 21.5 % (34.0-46.0); Hypochromasia Marked; Lymphocytes # (A) 0.6 k/uL (1.0-4.8); Lymphocytes % (A) 5 %; MCH 31.4 pg (25.0-35.0); MCHC 31.1 g/dL (31.0-37.0); MCV 101.1 fL (80.0-100.0); Macrocytosis Slight; Mean Platelet Volume 9.2; Monocytes # (A) 0.6 k/uL (0-1.0); Monocytes % (A) 5 %; Neutrophils # (A) 11.2 k/uL (1.3-7.7); Neutrophils % (A) 88 %; Platelet Count 293 k/uL (150-450); RBC 2.12 m/uL (3.80-5.40); RDW 17.1 % (11.5-15.5); WBC 12.7 k/uL (3.8-10.6)
[2024-06-09 11:30] LABS: African American GFR (CKD) >90 (>60 ml/min/1.73 sqM); Anion Gap 1 mmol/L; Blood Urea Nitrogen 8 mg/dL (7-17); Carbon Dioxide 32 mmol/L (22-30); Chloride 106 mmol/L (98-107); Glucose 127 mg/dL (74-99); HGB 6.7 gm/dL (11.4-16.0); Non-African American GFR(CKD) >90 (>60 ml/min/1.73 sqM); Sodium 139 mmol/L (137-145)
[2024-06-09 11:35] LABS: Glucose,Whole Blood 152 mg/dL (70-110)
--- NOTE | 2024-06-09 14:39 | P.PN ---
Subjective Progress Note Date: 06/09/24 Principal diagnosis: Acute hypoxic respiratory failure secondary to pneumonia/empyema with loculated left-sided pleural effusion 63-year-old female seen this morning in consultation. The patient was seen initially in the emergency department, on May 25. She apparently came in with complaints of shortness of breath, and low saturations. The patient has been treated recently for bronchitis with steroids and antibiotics. This morning, a rapid response was called on this patient, and, the charge nurse called me, to tell me that the patient would benefit from Lasix, and BiPAP. That was done initially, but subsequent to that, another rapid response was called on this pa tient, and the patient needed to be transferred to the intensive care unit, for intubation and mechanical ventilation. Currently, she is on volume assist- control, rate 20, tidal volume 350, FiO2 100%, PEEP of 5. She is on a Cardizem drip at 10 mg an hour for atrial fibrillation, propofol at 60 mcg/kg/min, and she is receiving some fluid, i.e. saline, at 1 L, as a fluid bolus. Afterwards, she will be switched to lactated Ringer's at 100 cc an hour. She had a an arterial line placed, and a central line placed. We did a right radial arterial line, and a left subclavian triple-lumen catheter. She was intubated by the [facility]. Current labs include a white count of 54.7, hemoglobin 8.7, hematocrit 29.7, and a platelet count of 605,000. Initial blood gases showed a pO2 of 146, pCO2 of 61, and pH is 7.24. The rate was increased from 28 to 24 breaths/min. In addition, the FiO2 was dropped down to 70%. Sodium 138, potassium 4.9, chlorides 102, CO2 28, BUN 18, creatinine 0.45. Glucose is 288. Calcium is 8.9. Lactic acid 1.3. The left chest reveals a pleural effusion, with possible loculations. An ultrasound was ordered. In addition, the patient had bronchoscopy, with airway examination, therapeutic lavage, BAL, brushings left lower lobe, and endobronchial and transbronchial biopsies left lower lobe. Progress note dated May 27, 2024. 63-year-old female seen in consultation yesterday. Please see the note above. The patient developed lopez respiratory failure, and was intubated, yesterday, May 26. She remains on mechanical ventilator. She is on volume assist-control , rate 24, tidal volume 350, FiO2 60%, to be reduced down to 50%, PEEP of 5. Blood gases show pO2 of 112, pCO2 44, pH is 7.37. The patient continues on propofol at 60 mcg/kg/min, norepinephrine at 7 mcg/min, fentanyl at 2 mcg/kg/h, LR at 100 cc an hour. The patient is on vancomycin, and we add cefepime. The patient had a left-sided thoracentesis today. 1.5 L of milky slightly green fluid was removed from the left pleural space. The patient's procalcitonin level is elevated 9.74. Current labs include a white count of 73.5, hemoglobin 6.6, hematocrit 22.2, platelet count 452,000. The patient will get 1 unit of PRBCs. In addition, sodium 139, potassium 4.8, chlorides 108, CO2 21, anion gap 10, BUN 21, creatinine 0.38. Calcium is 8.3. Magnesium is 1.9. Cultures are thus far negative. The postthoracentesis chest x-ray shows an improved left- sided pleural fluid collection, and a small to moderate size left-sided hydropneumothorax. Progress note dated May 28, 2024. 63-year-old female seen in consultation 2 days ago. The patient remains on mechanical ventilator. She is seen today in room 262. She is on volume assist- control, rate 24, tidal volume 350, FiO2 50%, PEEP of 5. Blood gases show pO2 119, pCO2 45, pH is 7.40. The FiO2 will be reduced at 40%. She is sedated with propofol at 65 mcg/kg/min, norepinephrine at 1.2 mcg/min, and fentanyl at 2 mcg/kg/h. She is getting lactated Ringer's at 100 cc an hour, and vital high- protein at 33 cc an hour. She continues on cefepime, and vancomycin. Current laboratory data includes a white count 48.1, hemoglobin 7.5, hematocrit 25.6, and platelet count 382,000. Sodium 140, potassium 4.4, chlorides 111, CO2 26, BUN 24, creatinine 0.42. Glucose is 215. Calcium 8.2. Cultures thus far are negative. That includes bronchoscopy results. Chest x-ray shows a relatively clear right lung. There is some haziness, on the left side, with a left-sided pleural effusion. She did undergo thoracentesis yesterday. On 05/29/2024, seen the patient for a follow-up. This morning, the patient remains intubated on mechanical ventilator. I reviewed the records and the patient came to us with a complicated loculated large left-sided pleural effusion which was drained and the fluid is an exudate with negative cultures. Subsequent chest x-ray from today still showing some loculated left-sided pleural effusion. The patient remains on a combination of antibiotics utilizing cefepime and vancomycin. This morning, the patient remains on propofol running at 60 mcg/kg/min and fentanyl at 2 mcg/kg/h. Patient remains on lactated Ringer at rate of 100 cc an hour. Norepinephrine drip has been discontinued approximately 24 hours ago. She is on assist-control mode of mechanical ventilation at rate of 24, tidal volume of 350, FiO2 of 40% with a PEEP of 5 and a blood gases showing a pH of 7.41 with a pCO2 of 46 and pO2 of 77. The white cell count is down to 31 and the hemoglobin is at 8 with a platelet count of 368. The procalcitonin level is downtrending from 9.7 down to 6.7. The rest of the electrolytes are stable with a BUN of 25 and a creatinine of 0.4 and a serum bicarb of 28. The patient is arousable while being off of sedation. Will check weaning parameters and assess her candidacy for further weaning. The patient is on vital high-protein at rate of 33 cc an hour. Today's evaluation of 05/30/2024, the patient is being seen for a follow-up. The patient was weaned off the mechanical ventilator and the patient was extubated to nasal cannula yesterday without any major difficulties and the patient is currently on 40s of oxygen nasal cannula. The follow-up chest x-ray still showing a persistent left-sided pleural effusion along with loculation. There is also some increase in small right-sided pleural effusion. The microbial cultures from the pleural fluid came back positive for alpha hemolytic Streptococcus. Antibiotic adjustments will be done accordingly. Hemodynamically stable. No significant chest pain. No discomfort. The patient remains on bronchodilators. The patient remains on IV Solu-Medrol. Blood work from today shows improvement in the white cell count which is currently down to 24 with a hemoglobin of 8.3 and a platelet count of 373, BUN is 24 and a creatinine of 0.4 and a electrolytes are all within normal limits. Awake and alert and communicating and using the incentive spirometer. 05/31/2024, the patient is being seen for a follow-up. The patient is still recov ering from an extensive left lung pneumonia that was complicated by empyema and this is likely secondary to streptococcal pneumonia. Her white cell count is improving. Her respiratory status is stable. Hemodynamically stable. The patient is currently on 4 L of oxygen by nasal cannula with a pulse ox of 95%. Meanwhile, a follow-up CAT scan of the chest was done and the patient was found to have a loculated left pleural effusion which has diminished in size. There is still a loculated pocket in the posterior left lung base. Trace left-sided pneumothorax. There is also an ongoing consolidation and areas of scattered groundglass opacities correlating with pneumonia. Small right-sided pleural effusion is also seen. The patient's blood work from today shows a white cell count of 24 with a hemoglobin 8.3 and a platelet count of 373. Electrolytes are all stable and within normal limits. Renal function is also stable. The patient remains on IV antibiotics. The patient remains on IV Rocephin 2 g every 24 hours. Rest of the medications are essentially unchanged. Remains on IV So abbie-Medrol 60 mg every 6 hours. 06/01/2024, patient is being seen for a follow-up. The patient feeling well. No specific complaints. She remains on oxygen 4 L/min nasal cannula. No chest pain. No shortness of breath. I reviewed the CAT scan of the chest that was done yesterday and I requested an interventional radiology consultation for the pigtail catheter insertion. Unfortunately, this has not been completed and no IR services are available for this current holiday. I am hoping that this can be completed by tomorrow. Meanwhile, the patient is doing well. The patient remains on antibiotics with IV Rocephin. No new labs from today. Clinically stable. Hemodynamically stable. No pleurisy. No hemoptysis. On today's evaluation of 06/02/2024, the patient is going to undergo a pigtail catheter insertion regarding the loculated pocket of empyema in the left lung base. Case was discussed with interventional radiology. Meanwhile, the patient oxygenation status is getting worse. Earlier this morning, the patient was on 4 L and she was brought up to 14 L and currently she is down to 11 L of oxygen by nasal cannula with a pulse ox of 94%. The patient has no specific complaints. She remains on IV Rocephin. She has been on bronchodilators. She has been on steroids. Her white cell count is currently at 28 with a hemoglobin 11.7 and a platelet count of 279. BUN is 13 with a creatinine of 0.8. Repeat chest x-ray was done today and the patient was found to have a large loculated empyema in the left lung. Small pleural effusion was also noted on the right lung base. Noted the loculation has developed in the left lung compared to the earlier chest x-ray and the patient is going to undergo a pigtail catheter insertion for further drainage. No chest pain. No fever or chills. No other new complaints otherwise for now. On 06/03/2024, the patient is calm and comfortable on 5 L of oxygen by nasal cannula. Pigtail catheter was inserted yesterday and the patient produced approximately 950 cc of pus from the right hemithorax. Follow-up chest x-ray from today shows significant reduction of the left-sided empyema and there is a small left-sided pneumothorax possibly trapped lung. There is some residual consolidation in the lung base bilaterally. Clinically patient is doing well. The white cell count down to 16, hemoglobin 9.1, BUN is 10 with a creatinine of 0.35 and the patient remains on IV Rocephin. No other significant events overnight. She remains on bronchodilators. She remains on steroids. 06/04/2024, I am seeing the patient for a follow-up. The patient is doing well. Patient continues to have active drainage from the pigtail catheter. The c atheter drained approximately 730 cc overnight. The patient received a dose of thrombolytic yesterday without any major difficulties. This improve the output from the pigtail catheter. A repeat chest x-ray was done today and the findings are essentially stable. The patient has a stable loculated left-sided pneumothorax. No new labs are available from today. The pleural fluid was again sent for culture. The most recent culture was positive for Streptococcus and the patient is currently on IV Rocephin 2 g every 24 hours. She is awake and alert and communicating. Some limited pain and discomfort over the left chest and the pain is tolerable. She is on 40s of oxygen by nasal cannula with a pulse ox of 97%. Patient was evaluated today on 06/05/2024, patient is basically about the same, continues to have a significant amount of drainage seems to be purulent drainage from her left-sided pleural space/empyema, patient remains on antibiotics, she has now a relatively good sized left-sided pneumothorax and I suspect that this is a trapped lung since the pneumothorax seems to be the area where the fluid was present to begin with patient is on 3 L nasal cannula, O2 sat is 95%. Continues to have a pigtail catheter in place. And draining significant amount of fluid. The culture on the fluid came back positive for Streptococcus intermedius, patient did receive lytic therapy, however considering the worsening chest x-ray, I am recommending a l thoracic surgery consultation, wondering if the patient may eventually require decortication clinically, the patient does not seem to be in any distress Patient was evaluated 06/06/2024, clinically about the same, patient was seen by thoracic surgery, and now she is scheduled for left thoracotomy with decortication mostly because of her persistent empyema and loculated pleural effusion. And not to mention the patient seems to have a trapped lung. Patient is not improving much with medical therapy, and surgery is strongly recommended patient is on 3 L nasal cannula, hemodynamically stable, does not seem to be in distress, continues to have significant amount of purulent drainage from the left sided chest tube into the Pleur-evac continues to have what seems to be a pneumothorax/trapped lung Patient was evaluated today on 06/07/2024, patient is status post left video- assisted thoracoscopic decortication, this was done today by Dr. Castro. I saw the patient in the recovery room, reviewed her ABG, advised to place on few liters nasal cannula and titrate to O2 saturation just above 90%. Patient seems to be in pain, however her postoperative chest x-ray shows much improvement and complete reexpansion of the left lung. No acute process was noted. Chest tubes seem to be in proper position Patient was evaluated today on 06/08/2024, patient is doing fairly well. She is now postoperative day #1, bronchoscopy with left video-assisted thoracoscopic decortication done by Dr. Castro. Patient continues to have chest tube in place, will dynamically stable, no air leaks noted in the chest tubes. Chest x-ray showed complete reexpansion of the left lungWBC count is 14.1 hemoglobin 7.7 basic metabolic profile is normal renal profile is normal Reevaluated today on 06/09/2024, patient is now postoperative day #2, she is status post left video-assisted thoracoscopic decortication, patient is being treated for empyema. Pooja on antibiotics, she is on ceftriaxone, cultures were positive for Streptococcus intermedius. Chest x-ray is showing improvement, clinically the patient is feeling better. And the chest tube remains in place. Evidence of air leak, chest tube is now to waterseal. No leak is present. Continues to have some serosanguineous drainage 120 cc in the last 24 hours Objective - Vital Signs Vital signs: Vital Signs Temp 97.9 F 06/09/24 07:58 Pulse 83 06/09/24 11:39 Resp 16 06/09/24 11:39 BP 97/62 06/09/24 11:39 Pulse Ox 99 06/09/24 11:39 FiO2 40 05/29/24 16:00 Intake & Output 06/08/24 06/09/24 06/09/24 18:59 06:59 18:59 Intake Total 356 Output Total 100 30 0 Balance 256 -30 0 Weight 55.1 kg 55.1 kg Intake: Oral 356 Output: Chest Tube Drainage 100 30 0 Chest Tube Left Anterior 10 Chest Chest Tube Left Posterior 90 30 0 Chest Other: Voiding Method Toilet # Bowel Movements 2 ABP, PAP, CO, CI - Last Documented Arterial Blood Pressure 121/88 - Exam General: The patient is awake and alert, in no distress, and does not appear acutely ill. On 2 L nasal cannula, O2 sat is 99% Skin: Skin is warm and dry and no rashes or lesions are noted. Eye: Pupils are equal, round and reactive to light, extra-ocular movements are intact; there is normal conjunctiva bilaterally. Ears, nose, mouth and throat: There are moist mucous membranes and no oral lesions. Neck: The neck is supple, there is no tenderness or JVD. Cardiovascular: There is a regular rate and rhythm. No murmur, rub or gallop is appreciated. Respiratory: Left-sided chest tubes noted to be in proper position and attached to Pleur-evac. Chest tube is to waterseal airleak Gastrointestinal: Soft, non-distended, non-tender abdomen without masses or organomegaly noted. There is no rebound or guarding present. Bowel sounds are unremarkable. Back: There is no tenderness to palpation in the midline. There is no obvious deformity. Musculoskeletal: Normal ROM, no tenderness, There is no pedal edema. There is no calf tenderness or swelling. No cords were appreciated. Neurological: CN II-XII intact, Cranial nerves III through XII are intact. There are no obvious motor or sensory deficits. Coordination appears grossly intact. Speech is normal. Psychiatric: Cooperative, appropriate mood & affect, normal judgment. - Labs CBC & Chem 7: 06/09/24 10:49 06/09/24 10:49 Labs: Abnormal Lab Results - Last 24 Hours (Table) 06/08/24 06/08/24 06/09/24 Range/Units 16:32 20:00 06:01 WBC (3.8-10.6) k/uL RBC (3.80-5.40) m/uL Hgb (11.4-16.0) gm/dL Hct (34.0-46.0) % MCV (80.0-100.0) fL RDW (11.5-15.5) % Neutrophils # (1.3-7.7) k/uL Lymphocytes # (1.0-4.8) k/uL Carbon Dioxide (22-30) mmol/L Creatinine (0.52-1.04) mg/dL Glucose (74-99) mg/dL POC Glucose (mg/dL) 121 H 117 H 117 H (70-110) mg/dL Calcium (8.4-10.2) mg/dL Crossmatch 06/09/24 06/09/24 06/09/24 Range/Units 10:49 10:49 11:33 WBC 12.7 H (3.8-10.6) k/uL RBC 2.12 L (3.80-5.40) m/uL Hgb 6.7 L* (11.4-16.0) gm/dL Hct 21.5 L (34.0-46.0) % MCV 101.1 H (80.0-100.0) fL RDW 17.1 H (11.5-15.5) % Neutrophils # 11.2 H (1.3-7.7) k/uL Lymphocytes # 0.6 L (1.0-4.8) k/uL Carbon Dioxide 32 H (22-30) mmol/L Creatinine 0.40 L (0.52-1.04) mg/dL Glucose 127 H (74-99) mg/dL POC Glucose (mg/dL) 152 H (70-110) mg/dL Calcium 8.0 L (8.4-10.2) mg/dL Crossmatch 06/09/24 Range/Units 12:15 WBC (3.8-10.6) k/uL RBC (3.80-5.40) m/uL Hgb (11.4-16.0) gm/dL Hct (34.0-46.0) % MCV (80.0-100.0) fL RDW (11.5-15.5) % Neutrophils # (1.3-7.7) k/uL Lymphocytes # (1.0-4.8) k/uL Carbon Dioxide (22-30) mmol/L Creatinine (0.52-1.04) mg/dL Glucose (74-99) mg/dL POC Glucose (mg/dL) (70-110) mg/dL Calcium (8.4-10.2) mg/dL Crossmatch See Detail Microbiology - Last 24 Hours (Table) 06/07/24 10:24 Gram Stain - Preliminary Other - Other Tissue Culture - Preliminary Assessment and Plan Assessment: Impression: Status post video-assisted thoracoscopic left lung decortication postoperative day #2 Acute hypoxic respiratory failure Acute left lower lobe pneumonia with empyema, secondary to Streptococcus intermedius, on ceftriaxone Loculated left pleural effusion Left-sided pneumothorax, possibly trapped lung Status post bronchoscopy biopsy and BAL with negative malignancy History of left-sided thoracentesis and pigtail catheter placement Leukocytosis secondary to above Benign essential hypertension Tobacco dependence syndrome Dyslipidemia History of fibromyalgia Migraine cephalgia Ulcerative colitis History of generalized anxiety disorder Paroxysmal atrial fibrillation Recommendation: Continue present supportive care measures Continue antibiotics Daily monitoring of x-rays of the chest Continue bronchodilators Continue oxygen and titrate accordingly Decrease prednisone to 5 mg daily Continue incentive spirometer Continue to ambulate I have to consider rehab placement sometime next week Will continue to follow. Time with Patient: Less than 30
[2024-06-09 16:44] LABS: Glucose,Whole Blood 141 mg/dL (70-110)
[2024-06-09 19:34] LABS: Glucose,Whole Blood 118 mg/dL (70-110)
--- NOTE | 2024-06-09 19:56 | P.PN ---
Subjective Progress Note Date: 06/09/24 This is a pleasant 63 years old female with past medical history of multiple medical problems including hypertension, hyperlipidemia, degenerative disc disease, fibromyalgia, multiple sclerosis, anxiety and depression. Patient presents because of worsening dyspnea for 2 days. Patient has a known case of bronchitis which is chronic and there is a 4 reported at home about 3 days prior to arrival to the hospital. Patient currently is in severe respiratory distress and cannot provide information, sound art instructor A-team was called for worsening dyspnea. Patient oxygen requirement went up to 6 L/min and was getting worse so one-time dose of IV Lasix provided and she was placed on BiPAP, she could tolerated only for 10 minutes and then she started becoming tachycardic and tachypneic with a breathing rate between 40s to 50s. She was hypoxic diaphoretic, sweating and pale. Another A-team was called and patient was moved to the ICU where she got emergent intubated. Staff tried to call the son and left a message I called the son myself Mr. Jefferson at [phone] and left a message to call back. Information was obtained from staff and medical record. Patient was afebrile, on admission She has significant worsening leukocytosis up to 40,000, hemoglobin dropped to 8.5. Platelet count were up to 561 . Liver enzymes mildly elevated. D-dimer was elevated 5.5 and CTA of the chest was obtained showing significant abnormalities : No pulmonary embolism, large left pleural effusion, loculated with complete left lung collapse with possible splenic involvement and enlarged mediastinal lymphadenopathy findings suspicious for malignancy 05/27/2024 Patient got extubated yesterday Patient today was still drowsy lethargic somewhat confused and very weak. She has large pleural effusion and she underwent thoracocentesis today with 1.5 of pleural fluid aspirated and sent for studies. Her WBC jumped up to 73 K and hemoglobin down to 6.6. As such her IV vancomycin continued, IV cefepime added and patient received 1 unit of blood transfusion today Patient also kept on IV Solu-Medrol and Ringer lactate at 100 mL/h ProCalcitonin is elevated 6.7%. 05/28/2024 Patient remains in the ICU, it looks like she was intubated the night before She remains on IV Solu-Medrol and broad-spectrum antibiotic with IV vancomycin and cefepime. No IV fluids running. No anticoagulation because of the bleeding. Hemoglobin improved 6.6 up to 7.5 Leukocytosis improving 73 down to 48 05/29/24 Patient remains in the ICU intubated and sedated, She is still getting broad-spectrum antibiotic with IV vancomycin and cefepime She remains on IV Solu-Medrol Chest x-ray showing increased haziness on the left side lung and both basal areas more on the left side. 05/31/2024 Patient breathing is better today, she talks freely Has frequent bowel movement not sure if his diarrhea about 3 to 4/day However her main problem is the breathing and the pneumonia looks better but it is complicated empyema Interventional radiologist has been consulted for possible pigtail tube insertion. 06/01/24 pt states Breathing is better, currently she is on 4 L, still has some decreased air entry on the left side. She has recent diarrhea controlled with Lomotil She has significant leukocytosis yesterday but is improving, IV Solu-Medrol lowered to 40 mg twice daily Repeat WBC from today is pending She remains on ceftriaxone based on culture results showing alphahemolytic Streptococcus. 06/02/24 Patient oxygen requirement went up from 4 L/min up to 14 L/min Patient went down for IR for pigtail placement Patient still complaining from dyspnea. She has bilateral crepitation Labs showing leukocytosis 28,000, hemoglobin 8.3 She remains on ceftriaxone and IV Solu-Medrol 40 mg and IV Protonix 06/03/2024 Patient is status post rest left upper chest pigtail placement yesterday. Today's postop day #1 Repeat chest x-ray looks catheter in place and there is significant reduction in the size of the fluid collection most likely empyema. She remains on 8 L oxygen this morning lowered to 5 L compared to 4 L yesterday. No significant tachypnea. No chest pain Patient with Eliquis resumed last night after the procedure. She is on ceftriaxone. Patient also on IV Solu-Medrol 40 mg 06/04/24 Patient with likely pleural effusion on the left side/empyema. S/p thoracocentesis however there was still some particulate therefore IR team consulted tube was placed 2 days ago. There is about 1800 cc of purulent discharge collected so far. Patient breathing is better currently on 3 L Currently chest pain is slightly worse after Patient is alternating [place] and Dilaudid 06/05/2024 Patient is seen in follow-up today with pulmonary following. Patient continues with chest tube on the left chest wall with significant amount of purulent drainage noted. CT surgery consulted for possible thoracotomy and/or d ecortication. Patient was currently on Eliquis which needs to be held for at least 48 hours with plans on surgical intervention tentatively for 06/07/2024. Patient is afebrile with no reports of worsening chest pain or shortness of breath. Will continue on antibiotics and medication regimen at this time. Recommend PT/OT therapy evaluation and will discuss further with case management once patient is more stable for discharge. Patient has had prolonged hospitalization and would likely benefit from ECF for continued strength and mobility. 06/06/2024 Patient is seen and evaluated in follow-up this morning currently sitting up in the chair. Patient continues with a chest tube on the left with purulent drainage although some of it is clearing. Patient being followed and evaluated by CT surgery with plans of surgical intervention on 06/07/2024. Continue holding anticoagulation. Patient is afebrile with no reports of chest pain or worsening shortness of breath. Patient does have a weak cough and encouraged to continue coughing and deep breathing along with incentive spirometer use. Recommend PT/OT therapy evaluation. Patient will be n.p.o. at midnight and will await surgical report. 06/07/2024 Patient is seen this morning n.p.o. and scheduled to undergo VATS procedure with decortication with cardiothoracic surgery today. Patient continues on antibiotics left-sided empyema. Patient continues with purulent drainage and noted chest tube and will await surgical report. Pulmonary following as well and will continue on as well as continued breathing treatments. Patient with significant weakness and prolonged hospitalization recommending ECF on discharge. Patient is agreeable and case management following and will be likely going to ECF on discharge. Repeat chest x-ray and continue to monitor closely. Encouraged to increase activity as tolerated getting up out of the bed more often with frequent walks. 06/08/2024 Patient is seen and evaluated in follow-up status post lung decortication on the left and continues with 2 chest tubes with serous drainage noted. Patient is maintained on antibiotics in the form of ceftriaxone and will continue for now, currently awaiting repeat wound cultures. Patient is continued on oral prednisone along with breathing inhalational treatments with pulmonary following closely. Encouraged incentive spirometer use and increase activity as tolerated. Patient has been up and walking and encouraged the patient to sit up in the chair more often. Patient is reporting severe pain on the chest wall and reports the IV Dilaudid only lasts for short period and then the pain is 10/10. Will resume patient's home Lyrica and continue with [place] and current regimen. Plan is for patient to go to ECF once stabilized and discharged. 06/09/2024 Patient seen and evaluated in follow-up today with multiple consultations following. Patient has 1 remaining chest tube. Continuing for now and will follow-up with serial chest x-rays. Patient reports minimal improvement in her breathing although no worsening. Patient continues to have pain at that chest tube site. Hemoglobin was noted to be 6.7 will give a unit of PRBC and follow- up with repeat labs. Patient is afebrile and cultures thus far have been negative. Encouraged to increase activity as tolerated and oral intake. Patient will be going to ECF once stabilized and cleared by consultations. Prognosis remains guarded. Review of systems: Constitutional: No reports of fatigue, fever, or chills Cardiovascular: No reports of chest pain or palpitations Respiratory: No reports of worsening shortness of breath or cough, reports chest wall pain at the chest tube site none GI: No reports of nausea, vomiting, or diarrhea : No reports of dysuria or retention Neurovascular: reports of generalized weakness All medications have been reviewed Physical exam: GENERAL: The patient is awake, alert and oriented x 3, well-developed, thin built, elderly appearing, ill-appearing HEENT: Pupils are round and equally reacting to light. EOMI. No scleral icterus. No conjunctival pallor. Normocephalic, atraumatic. No pharyngeal erythema. No thyromegaly. CARDIOVASCULAR: S1 and S2 muffled PULMONARY: Diminished breath sounds bilaterally otherwise chest is clear to auscultation, no wheezing , no crackles. Weak inspiration. ABDOMEN: Soft, nontender, nondistended, normoactive bowel sounds. No palpable organomegaly. Thin MUSCULOSKELETAL: No joint swelling or deformity. EXTREMITIES: No cyanosis, clubbing, or pedal edema. NEUROLOGICAL: Gross neurological examination did not reveal any focal deficits. Diffusely weak SKIN: No rashes. no petechiae. Assessment: Large loculated left pleural effusion with associated complete collapse of the left lung with mediastinal lymphadenopathy suspicious for malignancy is high. Also there is involvement of the spleen and diaphragm. Status post thoracocentesis on 05/27 with 1.5 L removed. S/P bronchoscopy, with BAL, brushi ngs, biopsies, left lower lobe. Empyema of the left, status post chest tube, status post thorascopic left lung decortication with CT surgery 06/07/2024, continues with 1 chest tube Severe acute hypoxic respiratory failure, present on admission. Requiring intubation and mechanical ventilation. Successfully extubated currently on 3 L via nasal cannula Acute COPD exacerbation Severe leukocytosis with findings above pneumonia is highly suspected. worsening anemia requiring 1 unit of blood transfusion on 05/27, hemoglobin is 6.7 today received a unit of PRBC New onset A-fib and RVR, currently rate controlled but no anticoagulation for severe anemia Hypertension Hyperlipidemia Degenerative disc disease Fibromyalgia Multiple sclerosis Anxiety and depression Moderate calorie protein malnutrition with a BMI of 19.8 Gait dysfunction with generalized weakness GI prophylaxis DVT prophylaxis Full code Plan: Patient is status post video-assisted thorascopic left lung decortication, postop day [address] surgery and pulmonary following Patient continues with 1 chest tubes at this time currently repeat cultures have been negative. Will follow-up on repeat chest x-ray in the a.m. Encouraged incentive spirometer use at least 10 times every hour while awake IV Solu-Medrol switched to prednisone with pulmonary following, continue breathing inhalational treatments as well Continue with antibiotics with ceftriaxone as sputum culture growing Streptococcus Cardiology on the case for A-fib RVR but no anticoagulation for anemia Pulmonary, cardiology and hematology/oncology following Recommend PT/OT therapy evaluation and case management as patient will need ECF on discharge. Patient has had prolonged hospitalization and will likely require ECF on discharge for continued strength and mobility. Patient has been instructed to increase activity as tolerated get up out of the bed more often chair. Will discuss further with case management once cleared by consultations Hemoglobin noted to be 6.1 unit of PRBC. Follow-up with labs and transfuse if 7 or less. Replace electrolytes per protocol Due to multiple complex medical issues, prognosis is guarded The impression and plan of care has been dictated by Carol Landaverde, Nurse Practitioner as directed. Dr. Bowen MD I have performed a history and examination and MDM of this patient, discussed the same with the dictator, and agree with the dictator's assessment and plan as written ,documented as a scribe. Based on total visit time, I have performed more than 50% of the visit. With multiple consultations following. Objective - Vital Signs Vital signs: Vital Signs Temp 97.9 F 06/09/24 07:58 Pulse 92 06/09/24 08:24 Resp 20 06/09/24 07:58 BP 90/58 06/09/24 07:58 Pulse Ox 97 06/09/24 08:07 FiO2 40 05/29/24 16:00 Intake & Output 06/08/24 06/09/24 06/09/24 18:59 06:59 18:59 Intake Total 356 Output Total 100 30 0 Balance 256 -30 0 Weight 55.1 kg Intake: Oral 356 Output: Chest Tube Drainage 100 30 0 Chest Tube Left Anterior 10 Chest Chest Tube Left Posterior 90 30 0 Chest Other: Voiding Method Toilet ABP, PAP, CO, CI - Last Documented Arterial Blood Pressure 121/88 - Labs CBC & Chem 7: 06/09/24 10:49 06/09/24 10:49 Labs: Abnormal Lab Results - Last 24 Hours (Table) 06/08/24 06/08/24 06/08/24 Range/Units 11:32 16:32 20:00 POC Glucose (mg/dL) 117 H 121 H 117 H (70-110) mg/dL 06/09/24 Range/Units 06:01 POC Glucose (mg/dL) 117 H (70-110) mg/dL Microbiology - Last 24 Hours (Table) 06/07/24 10:24 Gram Stain - Preliminary Other - Other Tissue Culture - Preliminary
[2024-06-10 05:41] LABS: Glucose,Whole Blood 81 mg/dL (70-110)
[2024-06-10 07:17] LABS: Anisocytosis Moderate; Basophils % (A) 0 %; Eosinophils # (A) 0.3 k/uL (0-0.7); Eosinophils % (A) 2 %; HGB 8.1 gm/dL (11.4-16.0); Hypochromasia Marked; Lymphocytes # (A) 1.2 k/uL (1.0-4.8); Lymphocytes % (A) 10 %; MCH 30.1 pg (25.0-35.0); MCHC 31.3 g/dL (31.0-37.0); Macrocytosis Slight; Monocytes # (A) 0.5 k/uL (0-1.0); Monocytes % (A) 5 %; Neutrophils # (A) 9.4 k/uL (1.3-7.7); Neutrophils % (A) 82 %; Platelet Count 303 k/uL (150-450); RBC 2.71 m/uL (3.80-5.40); RDW 20.2 % (11.5-15.5); WBC 11.5 k/uL (3.8-10.6)
[2024-06-10 07:26] LABS: African American GFR (CKD) >90 (>60 ml/min/1.73 sqM); Anion Gap 2 mmol/L; Blood Urea Nitrogen 7 mg/dL (7-17); Calcium 8.3 mg/dL (8.4-10.2); Carbon Dioxide 32 mmol/L (22-30); Chloride 104 mmol/L (98-107); Glucose 96 mg/dL (74-99); Magnesium 1.7 mg/dL (1.6-2.3); Non-African American GFR(CKD) >90 (>60 ml/min/1.73 sqM); Potassium 4.1 mmol/L (3.5-5.1); Sodium 138 mmol/L (137-145)
--- NOTE | 2024-06-10 07:52 | P.PN ---
Subjective Progress Note Date: 06/10/24 Principal diagnosis: Left empyema, left-sided trapped lung after fluid removal, status post left chest pigtail catheter placement by interventional radiology. Past medical history significant for episodes of unresponsiveness, multiple sclerosis followed by Dr. Schwartz, hypertension, hyperlipidemia, fibromyalgia, migraines, ulcerative colitis, lumbar degenerative disc, previous tobacco dependence and anxiety. POD #3 bronchoscopy, left video assisted thorascopic decortication The patient was seen and examined in follow-up today June 10, 2024 at her bedside on the third floor cardiac stepdown unit. She is currently sitting up to the bedside chair, is awake, alert, oriented x 3 and is in no acute apparent distress. She is tolerating her breakfast. Denies any complaints of pain at this time, although though is complaining of some shortness of breath with activity and episodes of diarrhea. She reports her diarrhea is chronic in nature. Her left pleural chest tube was removed yesterday without incident. Oxygen saturations are 99% on 2 L nasal cannula and she is achieving 1250 mL on her incentive spirometry with encouragement. Remote telemetry is showing normal sinus rhythm heart rate 80 bpm. Chest x-ray results reviewed. Objective - Vital Signs Vital signs: Vital Signs Temp 97.9 F 06/10/24 04:00 Pulse 81 06/10/24 04:00 Resp 18 06/10/24 04:00 BP 121/76 06/10/24 04:00 Pulse Ox 99 06/10/24 04:00 FiO2 40 05/29/24 16:00 Intake & Output 06/09/24 06/10/24 06/10/24 18:59 06:59 18:59 Intake Total 310 Output Total 0 Balance 310 Weight 55.1 kg 53.9 kg Intake: Blood Product 310 Rc As-1 Unit 310 [id number] Output: Chest Tube Drainage 0 Chest Tube Left Posterior 0 Chest Other: Voiding Method Toilet Toilet # Voids 1 # Bowel Movements 2 1 ABP, PAP, CO, CI - Last Documented Arterial Blood Pressure 121/88 - Exam CONSTITUTIONAL: Appears comfortable, cooperative, no acute distress. RESPIRATORY: Lungs sounds diminished bilaterally, left greater than right. Respirations symmetrical, nonlabored. Currently on 2 L nasal cannula with oxygen saturation 99%. Achieving 1250 mL on her incentive spirometry with encouragement. Strong cough. CARDIOVASCULAR: S1, S2 present. Regular rate and rhythm, normal sinus rhythm on telemetry. Palpable peripheral pulses bilaterally. No edema present. No calf pain or tenderness noted. SCDs present. GASTROINTESTINAL: Abdomen soft, nontender, nondistended. Active bowel sounds present 4 quadrants. Tolerating diet. Positive bowel movement 06/06. GENITOURINARY: Continues to void clear, yellow urine. INTEGUMENTARY: Skin is warm and dry, no cyanosis or clubbing present. Left thoracic dressings clean, dry and intact. NEUROLOGIC: Cranial nerves II through XII intact, no focal deficits. MUSKULOSKELETAL: Able to move all extremities, strength equal bilaterally. PSYCHIATRIC: Alert and oriented to person place and time, appropriate affect, intact judgment and insight. - Allied health notes Allied health notes reviewed: nursing - Labs CBC & Chem 7: 06/10/24 06:43 06/10/24 06:43 Labs: Abnormal Lab Results - Last 24 Hours (Table) 06/09/24 06/09/24 06/09/24 Range/Units 10:49 10:49 11:33 WBC 12.7 H (3.8-10.6) k/uL RBC 2.12 L (3.80-5.40) m/uL Hgb 6.7 L* (11.4-16.0) gm/dL Hct 21.5 L (34.0-46.0) % MCV 101.1 H (80.0-100.0) fL RDW 17.1 H (11.5-15.5) % Neutrophils # 11.2 H (1.3-7.7) k/uL Lymphocytes # 0.6 L (1.0-4.8) k/uL Carbon Dioxide 32 H (22-30) mmol/L Creatinine 0.40 L (0.52-1.04) mg/dL Glucose 127 H (74-99) mg/dL POC Glucose (mg/dL) 152 H (70-110) mg/dL Calcium 8.0 L (8.4-10.2) mg/dL Crossmatch 06/09/24 06/09/24 06/09/24 Range/Units 12:15 16:42 19:33 WBC (3.8-10.6) k/uL RBC (3.80-5.40) m/uL Hgb (11.4-16.0) gm/dL Hct (34.0-46.0) % MCV (80.0-100.0) fL RDW (11.5-15.5) % Neutrophils # (1.3-7.7) k/uL Lymphocytes # (1.0-4.8) k/uL Carbon Dioxide (22-30) mmol/L Creatinine (0.52-1.04) mg/dL Glucose (74-99) mg/dL POC Glucose (mg/dL) 141 H 118 H (70-110) mg/dL Calcium (8.4-10.2) mg/dL Crossmatch See Detail 06/10/24 06/10/24 Range/Units 06:43 06:43 WBC 11.5 H (3.8-10.6) k/uL RBC 2.71 L (3.80-5.40) m/uL Hgb 8.1 L (11.4-16.0) gm/dL Hct 26.0 L (34.0-46.0) % MCV (80.0-100.0) fL RDW 20.2 H (11.5-15.5) % Neutrophils # 9.4 H (1.3-7.7) k/uL Lymphocytes # (1.0-4.8) k/uL Carbon Dioxide 32 H (22-30) mmol/L Creatinine 0.36 L (0.52-1.04) mg/dL Glucose (74-99) mg/dL POC Glucose (mg/dL) (70-110) mg/dL Calcium 8.3 L (8.4-10.2) mg/dL Crossmatch Microbiology - Last 24 Hours (Table) 06/07/24 10:24 Anaerobic Culture - Preliminary Other - Other 05/26/24 10:00 Fungal Culture - Preliminary Bronchoalviolar Lavage - Left 06/07/24 10:24 Gram Stain - Preliminary Other - Other Tissue Culture - Preliminary - Imaging and Cardiology Chest x-ray: report reviewed, image reviewed Assessment and Plan Assessment: Left-sided empyema with pigtail catheter placed by IR, status post bronchoscopy, left video assisted thorascopic decortication Left-sided trapped lung after fluid removal Acute hypoxic respiratory failure Multiple sclerosis with episodes of unresponsiveness Hypertension Hyperlipidemia Fibromyalgia Previous tobacco dependence Anxiety Paroxysmal atrial fibrillation, initiated on Eliquis, last dose 06/05 Plan: Wean O2 as tolerated, encourage incentive spirometry use 10 times every hour while awake, bronchodilators/steroids/antibiotics per pulmonology. May restart Eliquis, when okay with primary care and other consultants. Increase activity, patient should be out of bed during the day, ambulate as tolerated. Pain control per current medication regimen. GI/DVT prophylaxis. Medical management of other comorbidities per internal medicine, pulmonology, cardiology. More recommendations to follow based on patient's clinical course. Time with Patient: Greater than 30
[2024-06-10] MEDS: predniSONE 5 MG TAB PO SCH (08:05)
--- NOTE | 2024-06-10 08:27 | XR ---
EXAMINATION TYPE: XR chest 1V portable DATE OF EXAM: 06/10/2024 COMPARISON: 06/09/2024 INDICATION: Status post VATS TECHNIQUE: Single frontal view of the chest is obtained. FINDINGS: The heart size is normal. The pulmonary vasculature is normal. Bibasilar infiltrates are present. This may be worsening over the interval. Previous right pleural ef fusion not identified. Left pleural effusion may be developing. There is increasing opacity through t he peripheral lateral lung could be some loculated pleural fluid. Left-sided chest tube has been matt alem. IMPRESSION: 1. Increasing left pleural effusion. 2. Resolution previous right pleural fluid. 3. Increasing bibasilar infiltrates.
[2024-06-10 11:27] LABS: Glucose,Whole Blood 136 mg/dL (70-110)
--- NOTE | 2024-06-10 11:40 | P.PN ---
Subjective Progress Note Date: 06/10/24 63-year-old female seen this morning in consultation. The patient was seen initially in the emergency department, on May 25. She apparently came in with complaints of shortness of breath, and low saturations. The patient has been treated recently for bronchitis with steroids and antibiotics. This morning, a rapid response was called on this patient, and, the charge nurse called me, to tell me that the patient would benefit from Lasix, and BiPAP. That was done initially, but subsequent to that, another rapid response was called on this patient, and the patient needed to be transferred to the intensive care unit, for intubation and mechanical ventilation. Currently, she is on volume assist-control, rate 20, tidal volume 350, FiO2 100%, PEEP of 5. She is on a Cardizem drip at 10 mg an hour for atrial fibrillation, propofol at 60 mcg/kg/min, and she is receiving some fluid, i.e. saline, at 1 L, as a fluid bolus. Afterwards, she will be switched to lactated Ringer's at 100 cc an hour. She had a an arterial line placed, and a central line placed. We did a right radial arterial line, and a left subclavian triple-lumen catheter. She was intubated by the [facility]. Current labs include a white count of 54.7, hemoglobin 8.7, hematocrit 29.7, and a platelet count of 605,000. Initial blood gases showed a pO2 of 146, pCO2 of 61, and pH is 7.24. The rate was increased from 28 to 24 breaths/min. In addition, the FiO2 was dropped down to 70%. Sodium 138, potassium 4.9, chlorides 102, CO2 28, BUN 18, creatinine 0.45. Glucose is 288. Calcium is 8.9. Lactic acid 1.3. The left chest reveals a pleural effusion, with possible loculations. An ultrasound was ordered. In addition, the patient had bronchoscopy, with airway examination, therapeutic lavage, BAL, brushings left lower lobe, and endobronchial and transbronchial biopsies left lower lobe. Progress note dated May 27, 2024. 63-year-old female seen in consultation yesterday. Please see the note above. The patient developed lopez respiratory failure, and was intubated, yesterday, May 26. She remains on mechanical ventilator. She is on volume assist- control, rate 24, tidal volume 350, FiO2 60%, to be reduced down to 50%, PEEP of 5. Blood gases show pO2 of 112, pCO2 44, pH is 7.37. The patient continues on propofol at 60 mcg/kg/min, norepinephrine at 7 mcg/min, fentanyl at 2 mcg/kg/h, LR at 100 cc an hour. The patient is on vancomycin, and we add cefepime. The patient had a left-sided thoracentesis today. 1.5 L of milky slightly green fluid was removed from the left pleural space. The patient's procalcitonin level is elevated 9.74. Current labs include a white count of 73.5, hemoglobin 6.6, hematocrit 22.2, platelet count 452,000. The patient will get 1 unit of PRBCs. In addition, sodium 139, potassium 4.8, chlorides 108, CO2 21, anion gap 10, BUN 21, creatinine 0.38. Calcium is 8.3. Magnesium is 1.9. Cultures are thus far negative. The postthoracentesis chest x-ray shows an improved left- sided pleural fluid collection, and a small to moderate size left-sided hydropneumothorax. Progress note dated May 28, 2024. 63-year-old female seen in consultation 2 days ago. The patient remains on mechanical ventilator. She is seen today in room 262. She is on volume assist- control, rate 24, tidal volume 350, FiO2 50%, PEEP of 5. Blood gases show pO2 119, pCO2 45, pH is 7.40. The FiO2 will be reduced at 40%. She is sedated with propofol at 65 mcg/kg/min, norepinephrine at 1.2 mcg/min, and fentanyl at 2 mcg/kg/h. She is getting lactated Ringer's at 100 cc an hour, and vital high- protein at 33 cc an hour. She continues on cefepime, and vancomycin. Current laboratory data includes a white count 48.1, hemoglobin 7.5, hematocrit 25.6, and platelet count 382,000. Sodium 140, potassium 4.4, chlorides 111, CO2 26, BUN 24, creatinine 0.42. Glucose is 215. Calcium 8.2. Cultures thus far are negative. That includes bronchoscopy results. Chest x-ray shows a relatively clear right lung. There is some haziness, on the left side, with a left-sided pleural effusion. She did undergo thoracentesis yesterday. On 05/29/2024, seen the patient for a follow-up. This morning, the patient remains intubated on mechanical ventilator. I reviewed the records and the patient came to us with a complicated loculated large left-sided pleural effusion which was drained and the fluid is an exudate with negative cultures. Subsequent chest x-ray from today still showing some loculated left-sided pleural effusion. The patient remains on a combination of antibiotics utilizing cefepime and vancomycin. This morning, the patient remains on propofol running at 60 mcg/kg/min and fentanyl at 2 mcg/kg/h. Patient remains on lactated Ringer at rate of 100 cc an hour. Norepinephrine drip has been discontinued approximately 24 hours ago. She is on assist-control mode of mechanical ve ntilation at rate of 24, tidal volume of 350, FiO2 of 40% with a PEEP of 5 and a blood gases showing a pH of 7.41 with a pCO2 of 46 and pO2 of 77. The white cell count is down to 31 and the hemoglobin is at 8 with a platelet count of 368. The procalcitonin level is downtrending from 9.7 down to 6.7. The rest of the electrolytes are stable with a BUN of 25 and a creatinine of 0.4 and a serum bicarb of 28. The patient is arousable while being off of sedation. Will check weaning parameters and assess her candidacy for further weaning. The patient is on vital high-protein at rate of 33 cc an hour. Today's evaluation of 05/30/2024, the patient is being seen for a follow-up. The patient was weaned off the mechanical ventilator and the patient was extubated to nasal cannula yesterday without any major difficulties and the patient is currently on 40s of oxygen nasal cannula. The follow-up chest x-ray still showing a persistent left-sided pleural effusion along with loculation. There is also some increase in small right-sided pleural effusion. The microbial cultures from the pleural fluid came back positive for alpha hemolytic Streptococcus. Antibiotic adjustments will be done accordingly. Hemodynamically stable. No significant chest pain. No discomfort. The patient remains on bronchodilators. The patient remains on IV Solu-Medrol. Blood work from today shows improvement in the white cell count which is currently down to 24 with a hemoglobin of 8.3 and a platelet count of 373, BUN is 24 and a creatinine of 0.4 and a electrolytes are all within normal limits. Awake and alert and communicating and using the incentive spirometer. 05/31/2024, the patient is being seen for a follow-up. The patient is still recovering from an extensive left lung pneumonia that was complicated by empyema and this is likely secondary to streptococcal pneumonia. Her white cell count is improving. Her respiratory status is stable. Hemodynamically stable. The patient is currently on 4 L of oxygen by nasal cannula with a pulse ox of 95%. Meanwhile, a follow-up CAT scan of the chest was done and the patient was found to have a loculated left pleural effusion which has diminished in size. There is still a loculated pocket in the posterior left lung base. Trace left-sided pneumothorax. There is also an ongoing consolidation and areas of scattered groundglass opacities correlating with pneumonia. Small right-sided pleural effusion is also seen. The patient's blood work from today shows a white cell count of 24 with a hemoglobin 8.3 and a platelet count of 373. Electrolytes are all stable and within normal limits. Renal function is also stable. The patient remains on IV antibiotics. The patient remains on IV Rocephin 2 g every 24 hours. Rest of the medications are essentially unchanged. Remains on IV Solu-Medrol 60 mg every 6 hours. 06/01/2024, patient is being seen for a follow-up. The patient feeling well. No specific complaints. She remains on oxygen 4 L/min nasal cannula. No chest pain. No shortness of breath. I reviewed the CAT scan of the chest that was done yesterday and I requested an interventional radiology consultation for the pigtail catheter insertion. Unfortunately, this has not been completed and no IR services are available for this current holiday. I am hoping that this can be completed by tomorrow. Meanwhile, the patient is doing well. The patient remains on antibiotics with IV Rocephin. No new labs from today. Clinically stable. Hemodynamically stable. No pleurisy. No hemoptysis. On today's evaluation of 06/02/2024, the patient is going to undergo a pigtail catheter insertion regarding the loculated pocket of empyema in the left lung base. Case was discussed with interventional radiology. Meanwhile, the patient oxygenation status is getting worse. Earlier this morning, the patient was on 4 L and she was brought up to 14 L and currently she is down to 11 L of oxygen by nasal cannula with a pulse ox of 94%. The patient has no specific complaints. She remains on IV Rocephin. She has been on bronchodilators. She has been on steroids. Her white cell count is currently at 28 with a hemoglobin 11.7 and a platelet count of 279. BUN is 13 with a creatinine of 0.8. Repeat chest x-ray was done today and the patient was found to have a large loculated empyema in the left lung. Small pleural effusion was also noted on the right lung base. Noted the loculation has developed in the left lung compared to the earlier chest x-ray and the patient is going to undergo a pigtail catheter insertion for further drainage. No chest pain. No fever or chills. No other new complaints otherwise for now. On 06/03/2024, the patient is calm and comfortable on 5 L of oxygen by nasal cannula. Pigtail catheter was inserted yesterday and the patient produced approximately 950 cc of pus from the right hemithorax. Follow-up chest x-ray from today shows significant reduction of the left-sided empyema and there is a small left-sided pneumothorax possibly trapped lung. There is some residual consolidation in the lung base bilaterally. Clinically patient is doing well. The white cell count down to 16, hemoglobin 9.1, BUN is 10 with a creatinine of 0.35 and the patient remains on IV Rocephin. No other significant events overnight. She remains on bronchodilators. She remains on steroids. 06/04/2024, I am seeing the patient for a follow-up. The patient is doing well. Patient continues to have active drainage from the pigtail catheter. The catheter drained approximately 730 cc overnight. The patient received a dose of thrombolytic yesterday without any major difficulties. This improve the output from the pigtail catheter. A repeat chest x-ray was done today and the findings are essentially stable. The patient has a stable loculated left-sided pneumothorax. No new labs are available from today. The pleural fluid was again sent for culture. The most recent culture was positive for Streptococcus and the patient is currently on IV Rocephin 2 g every 24 hours. She is awake and alert and communicating. Some limited pain and discomfort over the left chest and the pain is tolerable. She is on 40s of oxygen by nasal cannula with a pulse ox of 97%. Patient was evaluated today on 06/05/2024, patient is basically about the same, continues to have a significant amount of drainage seems to be purulent drainage from her left-sided pleural space/empyema, patient remains on antibiotics, she has now a relatively good sized left-sided pneumothorax and I suspect that this is a trapped lung since the pneumothorax seems to be the area where the fluid was present to begin with patient is on 3 L nasal cannula, O2 sat is 95%. Continues to have a pigtail catheter in place. And draining significant amount of fluid. The culture on the fluid came back positive for Streptococcus intermedius, patient did receive lytic therapy, however considering the worsening chest x-ray, I am recommending a l thoracic surgery consultation, wondering if the patient may eventually require decortication clinically, the patient does not seem to be in any distress Patient was evaluated 06/06/2024, clinically about the same, patient was seen by thoracic surgery, and now she is scheduled for left thoracotomy with decortication mostly because of her persistent empyema and loculated pleural effusion. And not to mention the patient seems to have a trapped lung. Patient is not improving much with medical therapy, and surgery is strongly recommended patient is on 3 L nasal cannula, hemodynamically stable, does not seem to be in distress, continues to have significant amount of purulent drainage from the left sided chest tube into the Pleur-evac continues to have what seems to be a pneumothorax/trapped lung Patient was evaluated today on 06/07/2024, patient is status post left video- assisted thoracoscopic decortication, this was done today by Dr. Castro. I saw the patient in the recovery room, reviewed her ABG, advised to place on few liters nasal cannula and titrate to O2 saturation just above 90%. Patient seems to be in pain, however her postoperative chest x-ray shows much improvement and complete reexpansion of the left lung. No acute process was noted. Chest tubes seem to be in proper position Patient was evaluated today on 06/08/2024, patient is doing fairly well. She is now postoperative day #1, bronchoscopy with left video-assisted thoracoscopic decortication done by Dr. Castro. Patient continues to have chest tube in place, will dynamically stable, no air leaks noted in the chest tubes. Chest x-ray showed complete reexpansion of the left lungWBC count is 14.1 hemoglobin 7.7 basic metabolic profile is normal renal profile is normal Reevaluated today on 06/09/2024, patient is now postoperative day #2, she is status post left video-assisted thoracoscopic decortication, patient is being treated for empyema. Pooja on antibiotics, she is on ceftriaxone, cultures were positive for Streptococcus intermedius. Chest x-ray is showing improvement, clinically the patient is feeling better. And the chest tube remains in place. Evidence of air leak, chest tube is now to waterseal. No leak is present. Continues to have some serosanguineous drainage 120 cc in the last 24 hours The patient is seen today June 10, 2024 in follow-up on the selective care unit. Postoperative day #3 of a left video-assisted thorascopic decortication. Both chest tubes have been removed. He is resting fairly comfortably in bed. Awake and alert in no acute distress. Continued O2 saturations up to 100% on 2 L/min per nasal cannula. She has been afebrile. Hemodynamically stable. Chest x-ray reveals left pleural effusion. Resolution of previous right pleural effusion. Bibasilar infiltrates. White count 11.5. Hemoglobin 8.1. Platelets 303. Sodium 138. Potassium 4.1. Bicarb 32. BUN 7. Creatinine 0.36. Glucose 96. Remains on ceftriaxone. Continued on bronchodilators, steroids. Objective - Vital Signs Vital signs: Vital Signs Temp 97.9 F 06/10/24 08:05 Pulse 99 06/10/24 09:43 Resp 19 06/10/24 08:05 BP 104/63 06/10/24 08:05 Pulse Ox 100 06/10/24 09:23 FiO2 40 05/29/24 16:00 Intake & Output 06/09/24 06/10/24 06/10/24 18:59 06:59 18:59 Intake Total 310 118 Output Total 0 Balance 310 118 Weight 55.1 kg 53.9 kg Intake: Oral 118 Blood Product 310 Rc As-1 Unit 310 [id number] Output: Chest Tube Drainage 0 Chest Tube Left Posterior 0 Chest Other: Voiding Method Toilet Toilet Toilet # Voids 1 # Bowel Movements 2 1 ABP, PAP, CO, CI - Last Documented Arterial Blood Pressure 121/88 - Exam GENERAL EXAM: Alert, thin pleasant 63-year-old female, on 2 L/min per nasal cannula, comfortable in no apparent distress. HEAD: Normocephalic. EYES: Normal reaction of pupils, equal size. NOSE: Clear with pink turbinates. THROAT: No erythema or exudates. NECK: No masses, no JVD. CHEST: No chest wall deformity. LUNGS: Equal air entry with faint crackles in the posterior bases left greater than right. CVS: S1 and S2 normal with no audible murmur, regular rhythm. ABDOMEN: No hepatosplenomegaly, normal bowel sounds, no guarding or rigidity. SPINE: No scoliosis or deformity SKIN: No rashes CENTRAL NERVOUS SYSTEM: No focal deficits, tone is normal in all 4 extremities. EXTREMITIES: There is no peripheral edema. No clubbing, no cyanosis. Peripheral pulses are intact. - Labs CBC & Chem 7: 06/10/24 06:43 06/10/24 06:43 Labs: Abnormal Lab Results - Last 24 Hours (Table) 06/09/24 06/09/24 06/09/24 Range/Units 11:33 12:15 16:42 WBC (3.8-10.6) k/uL RBC (3.80-5.40) m/uL Hgb (11.4-16.0) gm/dL Hct (34.0-46.0) % RDW (11.5-15.5) % Neutrophils # (1.3-7.7) k/uL Carbon Dioxide (22-30) mmol/L Creatinine (0.52-1.04) mg/dL POC Glucose (mg/dL) 152 H 141 H (70-110) mg/dL Calcium (8.4-10.2) mg/dL Crossmatch See Detail 06/09/24 06/10/24 06/10/24 Range/Units 19:33 06:43 06:43 WBC 11.5 H (3.8-10.6) k/uL RBC 2.71 L (3.80-5.40) m/uL Hgb 8.1 L (11.4-16.0) gm/dL Hct 26.0 L (34.0-46.0) % RDW 20.2 H (11.5-15.5) % Neutrophils # 9.4 H (1.3-7.7) k/uL Carbon Dioxide 32 H (22-30) mmol/L Creatinine 0.36 L (0.52-1.04) mg/dL POC Glucose (mg/dL) 118 H (70-110) mg/dL Calcium 8.3 L (8.4-10.2) mg/dL Crossmatch 06/10/24 Range/Units 11:26 WBC (3.8-10.6) k/uL RBC (3.80-5.40) m/uL Hgb (11.4-16.0) gm/dL Hct (34.0-46.0) % RDW (11.5-15.5) % Neutrophils # (1.3-7.7) k/uL Carbon Dioxide (22-30) mmol/L Creatinine (0.52-1.04) mg/dL POC Glucose (mg/dL) 136 H (70-110) mg/dL Calcium (8.4-10.2) mg/dL Crossmatch Microbiology - Last 24 Hours (Table) 06/07/24 10:24 Anaerobic Culture - Preliminary Other - Other 05/26/24 10:00 Fungal Culture - Preliminary Bronchoalviolar Lavage - Left 06/07/24 10:24 Gram Stain - Preliminary Other - Other Tissue Culture - Preliminary Assessment and Plan Assessment: Status post video-assisted thoracoscopic left lung decortication postoperative day #3 Acute hypoxic respiratory failure secondary to left lower lobe pneumonia with empyema, secondary to Streptococcus intermedius, on ceftriaxone Loculated left pleural effusion Left-sided pneumothorax, possibly trapped lung Status post bronchoscopy biopsy and BAL with negative malignancy History of left-sided thoracentesis and pigtail catheter placement Leukocytosis secondary to above Benign essential hypertension Tobacco dependence syndrome Dyslipidemia History of fibromyalgia Migraine cephalgia Ulcerative colitis History of generalized anxiety disorder Paroxysmal atrial fibrillation anticoagulated with Eliquis Plan: The patient was seen and evaluated Chest x-ray, labs and medications reviewed Resume Eliquis Continue bronchodilators Titrate down the FiO2 as tolerated Increase her activity as tolerated Continue with her incentive spirometer Plan is for subacute rehab at [facility] at discharge I have personally seen and examined the patient, performed the documentation and the assessment and plan as written. Number of minutes spent on the visit: 10.
[2024-06-10 16:09] LABS: Glucose,Whole Blood 100 mg/dL (70-110)
[2024-06-10 19:51] LABS: Glucose,Whole Blood 130 mg/dL (70-110)
[2024-06-10] MEDS: APIXABAN 5 MG TAB PO SCH (21:21)
[2024-06-10] MEDS: MAGNESIUM SULFATE-D5W PMX 1 GM in DEXTROSE/WATER 1 100ML.BAG IVPB ONE (23:34)
[2024-06-11 05:59] LABS: Glucose,Whole Blood 98 mg/dL (70-110)
[2024-06-11 07:52] LABS: Anisocytosis Slight; Basophils # (A) 0.1 k/uL (0-0.2); Basophils % (A) 1 %; Eosinophils # (A) 0.3 k/uL (0-0.7); Eosinophils % (A) 3 %; HCT 28.4 % (34.0-46.0); HGB 8.6 gm/dL (11.4-16.0); Hypochromasia Marked; Lymphocytes # (A) 1.5 k/uL (1.0-4.8); Lymphocytes % (A) 16 %; MCH 29.7 pg (25.0-35.0); MCHC 30.3 g/dL (31.0-37.0); Macrocytosis Slight; Mean Platelet Volume 8.7; Monocytes # (A) 0.4 k/uL (0-1.0); Monocytes % (A) 4 %; Neutrophils # (A) 7.5 k/uL (1.3-7.7); Neutrophils % (A) 76 %; Platelet Count 368 k/uL (150-450); RDW 19.8 % (11.5-15.5); WBC 9.9 k/uL (3.8-10.6)
[2024-06-11 08:06] LABS: African American GFR (CKD) >90 (>60 ml/min/1.73 sqM); Anion Gap 4 mmol/L; Blood Urea Nitrogen 10 mg/dL (7-17); Calcium 8.4 mg/dL (8.4-10.2); Carbon Dioxide 30 mmol/L (22-30); Chloride 101 mmol/L (98-107); Glucose 88 mg/dL (74-99); Non-African American GFR(CKD) >90 (>60 ml/min/1.73 sqM); Sodium 135 mmol/L (137-145)
[2024-06-11 08:08] LABS: Potassium 4.7 mmol/L (3.5-5.1)
[2024-06-11 11:38] LABS: Glucose,Whole Blood 168 mg/dL (70-110)
--- NOTE | 2024-06-11 12:52 | P.PN ---
Subjective Progress Note Date: 06/11/24 Principal diagnosis: Acute hypoxic respiratory failure secondary to pneumonia/empyema with loculated left-sided pleural effusion 63-year-old female seen this morning in consultation. The patient was seen initially in the emergency department, on May 25. She apparently came in with complaints of shortness of breath, and low saturations. The patient has been treated recently for bronchitis with steroids and antibiotics. This morning, a rapid response was called on this patient, and, the charge nurse called me, to tell me that the patient would benefit from Lasix, and BiPAP. That was done initially, but subsequent to that, another rapid response was called on this pa tient, and the patient needed to be transferred to the intensive care unit, for intubation and mechanical ventilation. Currently, she is on volume assist- control, rate 20, tidal volume 350, FiO2 100%, PEEP of 5. She is on a Cardizem drip at 10 mg an hour for atrial fibrillation, propofol at 60 mcg/kg/min, and she is receiving some fluid, i.e. saline, at 1 L, as a fluid bolus. Afterwards, she will be switched to lactated Ringer's at 100 cc an hour. She had a an arterial line placed, and a central line placed. We did a right radial arterial line, and a left subclavian triple-lumen catheter. She was intubated by the [facility]. Current labs include a white count of 54.7, hemoglobin 8.7, hematocrit 29.7, and a platelet count of 605,000. Initial blood gases showed a pO2 of 146, pCO2 of 61, and pH is 7.24. The rate was increased from 28 to 24 breaths/min. In addition, the FiO2 was dropped down to 70%. Sodium 138, potassium 4.9, chlorides 102, CO2 28, BUN 18, creatinine 0.45. Glucose is 288. Calcium is 8.9. Lactic acid 1.3. The left chest reveals a pleural effusion, with possible loculations. An ultrasound was ordered. In addition, the patient had bronchoscopy, with airway examination, therapeutic lavage, BAL, brushings left lower lobe, and endobronchial and transbronchial biopsies left lower lobe. Progress note dated May 27, 2024. 63-year-old female seen in consultation yesterday. Please see the note above. The patient developed lopez respiratory failure, and was intubated, yesterday, May 26. She remains on mechanical ventilator. She is on volume assist-control , rate 24, tidal volume 350, FiO2 60%, to be reduced down to 50%, PEEP of 5. Blood gases show pO2 of 112, pCO2 44, pH is 7.37. The patient continues on propofol at 60 mcg/kg/min, norepinephrine at 7 mcg/min, fentanyl at 2 mcg/kg/h, LR at 100 cc an hour. The patient is on vancomycin, and we add cefepime. The patient had a left-sided thoracentesis today. 1.5 L of milky slightly green fluid was removed from the left pleural space. The patient's procalcitonin level is elevated 9.74. Current labs include a white count of 73.5, hemoglobin 6.6, hematocrit 22.2, platelet count 452,000. The patient will get 1 unit of PRBCs. In addition, sodium 139, potassium 4.8, chlorides 108, CO2 21, anion gap 10, BUN 21, creatinine 0.38. Calcium is 8.3. Magnesium is 1.9. Cultures are thus far negative. The postthoracentesis chest x-ray shows an improved left- sided pleural fluid collection, and a small to moderate size left-sided hydropneumothorax. Progress note dated May 28, 2024. 63-year-old female seen in consultation 2 days ago. The patient remains on mechanical ventilator. She is seen today in room 262. She is on volume assist- control, rate 24, tidal volume 350, FiO2 50%, PEEP of 5. Blood gases show pO2 119, pCO2 45, pH is 7.40. The FiO2 will be reduced at 40%. She is sedated with propofol at 65 mcg/kg/min, norepinephrine at 1.2 mcg/min, and fentanyl at 2 mcg/kg/h. She is getting lactated Ringer's at 100 cc an hour, and vital high- protein at 33 cc an hour. She continues on cefepime, and vancomycin. Current laboratory data includes a white count 48.1, hemoglobin 7.5, hematocrit 25.6, and platelet count 382,000. Sodium 140, potassium 4.4, chlorides 111, CO2 26, BUN 24, creatinine 0.42. Glucose is 215. Calcium 8.2. Cultures thus far are negative. That includes bronchoscopy results. Chest x-ray shows a relatively clear right lung. There is some haziness, on the left side, with a left-sided pleural effusion. She did undergo thoracentesis yesterday. On 05/29/2024, seen the patient for a follow-up. This morning, the patient remains intubated on mechanical ventilator. I reviewed the records and the patient came to us with a complicated loculated large left-sided pleural effusion which was drained and the fluid is an exudate with negative cultures. Subsequent chest x-ray from today still showing some loculated left-sided pleural effusion. The patient remains on a combination of antibiotics utilizing cefepime and vancomycin. This morning, the patient remains on propofol running at 60 mcg/kg/min and fentanyl at 2 mcg/kg/h. Patient remains on lactated Ringer at rate of 100 cc an hour. Norepinephrine drip has been discontinued approximately 24 hours ago. She is on assist-control mode of mechanical ventilation at rate of 24, tidal volume of 350, FiO2 of 40% with a PEEP of 5 and a blood gases showing a pH of 7.41 with a pCO2 of 46 and pO2 of 77. The white cell count is down to 31 and the hemoglobin is at 8 with a platelet count of 368. The procalcitonin level is downtrending from 9.7 down to 6.7. The rest of the electrolytes are stable with a BUN of 25 and a creatinine of 0.4 and a serum bicarb of 28. The patient is arousable while being off of sedation. Will check weaning parameters and assess her candidacy for further weaning. The patient is on vital high-protein at rate of 33 cc an hour. Today's evaluation of 05/30/2024, the patient is being seen for a follow-up. The patient was weaned off the mechanical ventilator and the patient was extubated to nasal cannula yesterday without any major difficulties and the patient is currently on 40s of oxygen nasal cannula. The follow-up chest x-ray still showing a persistent left-sided pleural effusion along with loculation. There is also some increase in small right-sided pleural effusion. The microbial cultures from the pleural fluid came back positive for alpha hemolytic Streptococcus. Antibiotic adjustments will be done accordingly. Hemodynamically stable. No significant chest pain. No discomfort. The patient remains on bronchodilators. The patient remains on IV Solu-Medrol. Blood work from today shows improvement in the white cell count which is currently down to 24 with a hemoglobin of 8.3 and a platelet count of 373, BUN is 24 and a creatinine of 0.4 and a electrolytes are all within normal limits. Awake and alert and communicating and using the incentive spirometer. 05/31/2024, the patient is being seen for a follow-up. The patient is still recov ering from an extensive left lung pneumonia that was complicated by empyema and this is likely secondary to streptococcal pneumonia. Her white cell count is improving. Her respiratory status is stable. Hemodynamically stable. The patient is currently on 4 L of oxygen by nasal cannula with a pulse ox of 95%. Meanwhile, a follow-up CAT scan of the chest was done and the patient was found to have a loculated left pleural effusion which has diminished in size. There is still a loculated pocket in the posterior left lung base. Trace left-sided pneumothorax. There is also an ongoing consolidation and areas of scattered groundglass opacities correlating with pneumonia. Small right-sided pleural effusion is also seen. The patient's blood work from today shows a white cell count of 24 with a hemoglobin 8.3 and a platelet count of 373. Electrolytes are all stable and within normal limits. Renal function is also stable. The patient remains on IV antibiotics. The patient remains on IV Rocephin 2 g every 24 hours. Rest of the medications are essentially unchanged. Remains on IV So abbie-Medrol 60 mg every 6 hours. 06/01/2024, patient is being seen for a follow-up. The patient feeling well. No specific complaints. She remains on oxygen 4 L/min nasal cannula. No chest pain. No shortness of breath. I reviewed the CAT scan of the chest that was done yesterday and I requested an interventional radiology consultation for the pigtail catheter insertion. Unfortunately, this has not been completed and no IR services are available for this current holiday. I am hoping that this can be completed by tomorrow. Meanwhile, the patient is doing well. The patient remains on antibiotics with IV Rocephin. No new labs from today. Clinically stable. Hemodynamically stable. No pleurisy. No hemoptysis. On today's evaluation of 06/02/2024, the patient is going to undergo a pigtail catheter insertion regarding the loculated pocket of empyema in the left lung base. Case was discussed with interventional radiology. Meanwhile, the patient oxygenation status is getting worse. Earlier this morning, the patient was on 4 L and she was brought up to 14 L and currently she is down to 11 L of oxygen by nasal cannula with a pulse ox of 94%. The patient has no specific complaints. She remains on IV Rocephin. She has been on bronchodilators. She has been on steroids. Her white cell count is currently at 28 with a hemoglobin 11.7 and a platelet count of 279. BUN is 13 with a creatinine of 0.8. Repeat chest x-ray was done today and the patient was found to have a large loculated empyema in the left lung. Small pleural effusion was also noted on the right lung base. Noted the loculation has developed in the left lung compared to the earlier chest x-ray and the patient is going to undergo a pigtail catheter insertion for further drainage. No chest pain. No fever or chills. No other new complaints otherwise for now. On 06/03/2024, the patient is calm and comfortable on 5 L of oxygen by nasal cannula. Pigtail catheter was inserted yesterday and the patient produced approximately 950 cc of pus from the right hemithorax. Follow-up chest x-ray from today shows significant reduction of the left-sided empyema and there is a small left-sided pneumothorax possibly trapped lung. There is some residual consolidation in the lung base bilaterally. Clinically patient is doing well. The white cell count down to 16, hemoglobin 9.1, BUN is 10 with a creatinine of 0.35 and the patient remains on IV Rocephin. No other significant events overnight. She remains on bronchodilators. She remains on steroids. 06/04/2024, I am seeing the patient for a follow-up. The patient is doing well. Patient continues to have active drainage from the pigtail catheter. The c atheter drained approximately 730 cc overnight. The patient received a dose of thrombolytic yesterday without any major difficulties. This improve the output from the pigtail catheter. A repeat chest x-ray was done today and the findings are essentially stable. The patient has a stable loculated left-sided pneumothorax. No new labs are available from today. The pleural fluid was again sent for culture. The most recent culture was positive for Streptococcus and the patient is currently on IV Rocephin 2 g every 24 hours. She is awake and alert and communicating. Some limited pain and discomfort over the left chest and the pain is tolerable. She is on 40s of oxygen by nasal cannula with a pulse ox of 97%. Patient was evaluated today on 06/05/2024, patient is basically about the same, continues to have a significant amount of drainage seems to be purulent drainage from her left-sided pleural space/empyema, patient remains on antibiotics, she has now a relatively good sized left-sided pneumothorax and I suspect that this is a trapped lung since the pneumothorax seems to be the area where the fluid was present to begin with patient is on 3 L nasal cannula, O2 sat is 95%. Continues to have a pigtail catheter in place. And draining significant amount of fluid. The culture on the fluid came back positive for Streptococcus intermedius, patient did receive lytic therapy, however considering the worsening chest x-ray, I am recommending a l thoracic surgery consultation, wondering if the patient may eventually require decortication clinically, the patient does not seem to be in any distress Patient was evaluated 06/06/2024, clinically about the same, patient was seen by thoracic surgery, and now she is scheduled for left thoracotomy with decortication mostly because of her persistent empyema and loculated pleural effusion. And not to mention the patient seems to have a trapped lung. Patient is not improving much with medical therapy, and surgery is strongly recommended patient is on 3 L nasal cannula, hemodynamically stable, does not seem to be in distress, continues to have significant amount of purulent drainage from the left sided chest tube into the Pleur-evac continues to have what seems to be a pneumothorax/trapped lung Patient was evaluated today on 06/07/2024, patient is status post left video- assisted thoracoscopic decortication, this was done today by Dr. Castro. I saw the patient in the recovery room, reviewed her ABG, advised to place on few liters nasal cannula and titrate to O2 saturation just above 90%. Patient seems to be in pain, however her postoperative chest x-ray shows much improvement and complete reexpansion of the left lung. No acute process was noted. Chest tubes seem to be in proper position Patient was evaluated today on 06/08/2024, patient is doing fairly well. She is now postoperative day #1, bronchoscopy with left video-assisted thoracoscopic decortication done by Dr. Castro. Patient continues to have chest tube in place, will dynamically stable, no air leaks noted in the chest tubes. Chest x-ray showed complete reexpansion of the left lungWBC count is 14.1 hemoglobin 7.7 basic metabolic profile is normal renal profile is normal Reevaluated today on 06/09/2024, patient is now postoperative day #2, she is status post left video-assisted thoracoscopic decortication, patient is being treated for empyema. Pooja on antibiotics, she is on ceftriaxone, cultures were positive for Streptococcus intermedius. Chest x-ray is showing improvement, clinically the patient is feeling better. And the chest tube remains in place. Evidence of air leak, chest tube is now to waterseal. No leak is present. Continues to have some serosanguineous drainage 120 cc in the last 24 hours Was reevaluated today on 06/11/2024, she is now postoperative day #4, patient had left video-assisted thoracoscopic decortication for empyema. Cultures from the pleural effusion were positive for Streptococcus intermedius, remains on Rocephin, eventually the patient will need to be on oral antibiotics for couple more weeks postdischarge. Patient has some shortness of breath, intermittent cough, no wheezing, chest x-ray is showing small left pleural effusion, and atelectasis, not large enough to consider thoracentesis at this point yet patient did have her chest tube removed couple days ago. CBC is relatively normal WBC count is 9.9 hemoglobin 8.6 electrolytes are normal renal profile is normal Objective - Vital Signs Vital signs: Vital Signs Temp 98.2 F 06/11/24 08:05 Pulse 80 06/11/24 12:00 Resp 18 06/11/24 12:00 BP 96/65 06/11/24 12:00 Pulse Ox 97 06/11/24 12:00 FiO2 40 05/29/24 16:00 Intake & Output 06/10/24 06/11/24 06/11/24 18:59 06:59 18:59 Intake Total 718 240 Output Total 200 Balance 718 40 Weight 53.8 kg Intake: Oral 718 240 Output: Stool 200 Other: Voiding Method Toilet Toilet Toilet # Voids 1 ABP, PAP, CO, CI - Last Documented Arterial Blood Pressure 121/88 - Exam General: The patient is awake and alert, in no distress, and does not appear acutely ill. On 2 L nasal cannula, O2 sat is 97% Skin: Skin is warm and dry and no rashes or lesions are noted. Eye: Pupils are equal, round and reactive to light, extra-ocular movements are intact; there is normal conjunctiva bilaterally. Ears, nose, mouth and throat: There are moist mucous membranes and no oral lesions. Neck: The neck is supple, there is no tenderness or JVD. Cardiovascular: There is a regular rate and rhythm. No murmur, rub or gallop is appreciated. Respiratory: Minich breath sounds at the bases, no rhonchi no wheezes, chest tube been removed Gastrointestinal: Soft, non-distended, non-tender abdomen without masses or organomegaly noted. There is no rebound or guarding present. Bowel sounds are unremarkable. Back: There is no tenderness to palpation in the midline. There is no obvious deformity. Musculoskeletal: Normal ROM, no tenderness, There is no pedal edema. There is no calf tenderness or swelling. No cords were appreciated. Neurological: CN II-XII intact, Cranial nerves III through XII are intact. There are no obvious motor or sensory deficits. Coordination appears grossly intact. Speech is normal. Psychiatric: Cooperative, appropriate mood & affect, normal judgment. - Labs CBC & Chem 7: 06/11/24 07:16 06/11/24 07:16 Labs: Abnormal Lab Results - Last 24 Hours (Table) 06/10/24 06/11/24 06/11/24 Range/Units 19:47 07:16 07:16 RBC 2.90 L (3.80-5.40) m/uL Hgb 8.6 L (11.4-16.0) gm/dL Hct 28.4 L (34.0-46.0) % MCHC 30.3 L (31.0-37.0) g/dL RDW 19.8 H (11.5-15.5) % Sodium 135 L (137-145) mmol/L Creatinine 0.34 L (0.52-1.04) mg/dL POC Glucose (mg/dL) 130 H (70-110) mg/dL 06/11/24 Range/Units 11:37 RBC (3.80-5.40) m/uL Hgb (11.4-16.0) gm/dL Hct (34.0-46.0) % MCHC (31.0-37.0) g/dL RDW (11.5-15.5) % Sodium (137-145) mmol/L Creatinine (0.52-1.04) mg/dL POC Glucose (mg/dL) 168 H (70-110) mg/dL Microbiology - Last 24 Hours (Table) 06/07/24 10:24 Gram Stain - Preliminary Other - Other Tissue Culture - Preliminary Assessment and Plan Assessment: Impression: Status post video-assisted thoracoscopic left lung decortication postoperative day #4 Acute hypoxic respiratory failure Acute left lower lobe pneumonia with empyema, secondary to Streptococcus int ermedius, on ceftriaxone Loculated left pleural effusion Left-sided pneumothorax, possibly trapped lung Status post bronchoscopy biopsy and BAL with negative malignancy History of left-sided thoracentesis and pigtail catheter placement Leukocytosis secondary to above Benign essential hypertension Tobacco dependence syndrome Dyslipidemia History of fibromyalgia Migraine cephalgia Ulcerative colitis History of generalized anxiety disorder Paroxysmal atrial fibrillation Recommendation: Continue present supportive care measures Continue antibiotics Continue bronchodilators Continue oxygen and titrate accordingly Decrease prednisone to 5 mg daily Continue incentive spirometer Continue to ambulate Needs placement. Will continue to follow. Time with Patient: Less than 30
[2024-06-11 16:35] LABS: Glucose,Whole Blood 85 mg/dL (70-110)
[2024-06-11 20:23] LABS: Glucose,Whole Blood 122 mg/dL (70-110)
--- NOTE | 2024-06-11 22:56 | P.PN ---
Subjective Progress Note Date: 06/10/24 This is a pleasant 63 years old female with past medical history of multiple medical problems including hypertension, hyperlipidemia, degenerative disc disease, fibromyalgia, multiple sclerosis, anxiety and depression. Patient presents because of worsening dyspnea for 2 days. Patient has a known case of bronchitis which is chronic and there is a 4 reported at home about 3 days prior to arrival to the hospital. 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 Patient oxygen requirement went up to 6 L/min and was getting worse so one-time dose of IV Lasix provided and she was placed on BiPAP, she could tolerated only for 10 minutes and then she started becoming tachycardic and tachypneic with a breathing rate between 40s to 50s. She was hypoxic diaphoretic, sweating and pale. Another A-team was called and patient was moved to the ICU where she got emergent intubated. Staff tried to call the son and left a message I called the son myself Mr. Jefferson at [phone] and left a message to call back. Information was obtained from staff and medical record. Patient was afebrile, on admission She has significant worsening leukocytosis up to 40,000, hemoglobin dropped to 8.5. Platelet count were up to 561 . Liver enzymes mildly elevated. D-dimer was elevated 5.5 and CTA of the chest was obtained showing significant abnormalities : No pulmonary embolism, large left pleural effusion, loculated with complete left lung collapse with possible splenic involvement and enlarged mediastinal lymphadenopathy findings suspicious for malignancy 05/27/2024 Patient got extubated yesterday Patient today was still drowsy lethargic somewhat confused and very weak. She has large pleural effusion and she underwent thoracocentesis today with 1.5 of pleural fluid aspirated and sent for studies. Her WBC jumped up to 73 K and hemoglobin down to 6.6. As such her IV vancomycin continued, IV cefepime added and patient received 1 unit of blood transfusion today Patient also kept on IV Solu-Medrol and Ringer lactate at 100 mL/h ProCalcitonin is elevated 6.7%. 05/28/2024 Patient remains in the ICU, it looks like she was intubated the night before She remains on IV Solu-Medrol and broad-spectrum antibiotic with IV vancomycin and cefepime. No IV fluids running. No anticoagulation because of the bleeding. Hemoglobin improved 6.6 up to 7.5 Leukocytosis improving 73 down to 48 05/29/24 Patient remains in the ICU intubated and sedated, She is still getting broad-spectrum antibiotic with IV vancomycin and cefepime She remains on IV Solu-Medrol Chest x-ray showing increased haziness on the left side lung and both basal areas more on the left side. 05/31/2024 Patient breathing is better today, she talks freely Has frequent bowel movement not sure if his diarrhea about 3 to 4/day However her main problem is the breathing and the pneumonia looks better but it is complicated empyema Interventional radiologist has been consulted for possible pigtail tube insertion. 06/01/24 pt states Breathing is better, currently she is on 4 L, still has some decreased air entry on the left side. She has recent diarrhea controlled with Lomotil She has significant leukocytosis yesterday but is improving, IV Solu-Medrol lowered to 40 mg twice daily Repeat WBC from today is pending She remains on ceftriaxone based on culture results showing alphahemolytic Streptococcus. 06/02/24 Patient oxygen requirement went up from 4 L/min up to 14 L/min Patient went down for IR for pigtail placement Patient still complaining from dyspnea. She has bilateral crepitation Labs showing leukocytosis 28,000, hemoglobin 8.3 She remains on ceftriaxone and IV Solu-Medrol 40 mg and IV Protonix 06/03/2024 Patient is status post rest left upper chest pigtail placement yesterday. Today's postop day #1 Repeat chest x-ray looks catheter in place and there is significant reduction in the size of the fluid collection most likely empyema. She remains on 8 L oxygen this morning lowered to 5 L compared to 4 L yesterday. No significant tachypnea. No chest pain Patient with Eliquis resumed last night after the procedure. She is on ceftriaxone. Patient also on IV Solu-Medrol 40 mg 06/04/24 Patient with likely pleural effusion on the left side/empyema. S/p thoracocentesis however there was still some particulate therefore IR team consulted tube was placed 2 days ago. There is about 1800 cc of purulent discharge collected so far. Patient breathing is better currently on 3 L Currently chest pain is slightly worse after Patient is alternating [place] and Dilaudid 06/05/2024 Patient is seen in follow-up today with pulmonary following. Patient continues with chest tube on the left chest wall with significant amount of purulent drainage noted. CT surgery consulted for possible thoracotomy and/or decortication. Patient was currently on Eliquis which needs to be held for at least 48 hours with plans on surgical intervention tentatively for 06/07/2024. Patient is afebrile with no reports of worsening chest pain or shortness of breath. Will continue on antibiotics and medication regimen at this time. Recommend PT/OT therapy evaluation and will discuss further with case management once patient is more stable for discharge. Patient has had prolonged hospitalization and would likely benefit from ECF for continued strength and mobility. 06/06/2024 Patient is seen and evaluated in follow-up this morning currently sitting up in the chair. Patient continues with a chest tube on the left with purulent drainage although some of it is clearing. Patient being followed and evaluated by CT surgery with plans of surgical intervention on 06/07/2024. Continue holding anticoagulation. Patient is afebrile with no reports of chest pain or worsening shortness of breath. Patient does have a weak cough and encouraged to continue coughing and deep breathing along with incentive spirometer use. Recommend PT/OT therapy evaluation. Patient will be n.p.o. at midnight and will await surgical report. 06/07/2024 Patient is seen this morning n.p.o. and scheduled to undergo VATS procedure with decortication with cardiothoracic surgery today. Patient continues on antibiotics left-sided empyema. Patient continues with purulent drainage and noted chest tube and will await surgical report. Pulmonary following as well and will continue on as well as continued breathing treatments. Patient with significant weakness and prolonged hospitalization recommending ECF on discharge. Patient is agreeable and case management following and will be likely going to ECF on discharge. Repeat chest x-ray and continue to monitor closely. Encouraged to increase activity as tolerated getting up out of the bed more often with frequent walks. 06/08/2024 Patient is seen and evaluated in follow-up status post lung decortication on the left and continues with 2 chest tubes with serous drainage noted. Patient is maintained on antibiotics in the form of ceftriaxone and will continue for now, currently awaiting repeat wound cultures. Patient is continued on oral prednisone along with breathing inhalational treatments with pulmonary following closely. Encouraged incentive spirometer use and increase activity as tolerated. Patient has been up and walking and encouraged the patient to sit up in the chair more often. Patient is reporting severe pain on the chest wall and reports the IV Dilaudid only lasts for short period and then the pain is 10/10. Will resume patient's home Lyrica and continue with [place] and current regimen. Plan is for patient to go to ECF once stabilized and discharged. 06/09/2024 Patient seen and evaluated in follow-up today with multiple consultations following. Patient has 1 remaining chest tube. Continuing for now and will follow-up with serial chest x-rays. Patient reports minimal improvement in her breathing although no worsening. Patient continues to have pain at that chest tube site. Hemoglobin was noted to be 6.7 will give a unit of PRBC and follow- up with repeat labs. Patient is afebrile and cultures thus far have been negative. Encouraged to increase activity as tolerated and oral intake. Patient will be going to ECF once stabilized and cleared by consultations. Prognosis remains guarded. 06/10/2024 Patient is lying in the bed. Awake alert and oriented x 3. Patient is status post left video-assisted thoracoscopic decortication. Postoperative day 3. Both chest tubes have been removed. Currently breathing status is stable. Denies any chest pain. Some discomfort with deep breathing. Patient has been afebrile. Requiring 2 L oxygen via nasal cannula. Chest x-ray showed increasing left pleural effusion. Resolution of previous right pleural fluid. Increasing bibasilar infiltrates. Laboratory data showed WBC 11.5 hemoglobin 8.1 and platelets 303 sodium 138 potassium 4.1 chloride 104 bicarb is 32 BUN 7 and creatinine 0.36 and calcium 8.3 and magnesium 1.7. Patient is on antibiotics and of ceftriaxone 2 g every 12. Pulmonary and CT surgery is on board. Patient is also on prednisone 5 mg p.o. daily Review of systems: Constitutional: No reports of fatigue, fever, or chills Cardiovascular: No reports of chest pain or palpitations Respiratory: No reports of worsening shortness of breath or cough, reports chest wall pain at the chest tube site none GI: No reports of nausea, vomiting, or diarrhea : No reports of dysuria or retention Neurovascular: reports of generalized weakness All medications have been reviewed Physical exam: GENERAL: The patient is awake, alert and oriented x 3, well-developed, thin built, elderly appearing, ill-appearing HEENT: Pupils are round and equally reacting to light. EOMI. No scleral icterus. No conjunctival pallor. Normocephalic, atraumatic. No pharyngeal erythema. No thyromegaly. CARDIOVASCULAR: S1 and S2 muffled PULMONARY: Diminished breath sounds bilaterally otherwise chest is clear to aus cultation, no wheezing , no crackles. Weak inspiration. ABDOMEN: Soft, nontender, nondistended, normoactive bowel sounds. No palpable organomegaly. Thin MUSCULOSKELETAL: No joint swelling or deformity. EXTREMITIES: No cyanosis, clubbing, or pedal edema. NEUROLOGICAL: Gross neurological examination did not reveal any focal deficits. Diffusely weak SKIN: No rashes. no petechiae. Assessment: Large loculated left pleural effusion with associated complete collapse of the left lung with mediastinal lymphadenopathy suspicious for malignancy is high. Also there is involvement of the spleen and diaphragm. Status post thoracocentesis on 05/27 with 1.5 L removed. S/P bronchoscopy, with BAL, br ushings, biopsies, left lower lobe. Empyema of the left, status post chest tube, status post thorascopic left lung decortication with CT surgery 06/07/2024, chest tubes have been removed. Severe acute hypoxic respiratory failure, present on admission. Requiring intubation and mechanical ventilation. Successfully extubated currently on 3 L via nasal cannula Acute COPD exacerbation Severe leukocytosis with findings above pneumonia is highly suspected. worsening anemia requiring 1 unit of blood transfusion on 05/27, hemoglobin is 6.7 today received a unit of PRBC New onset A-fib and RVR, currently rate controlled but no anticoagulation for severe anemia Hypertension Hyperlipidemia Degenerative disc disease Fibromyalgia Multiple sclerosis Anxiety and depression Moderate calorie protein malnutrition with a BMI of 19.8 Gait dysfunction with generalized weakness GI prophylaxis DVT prophylaxis Full code Plan: Patient is status post video-assisted thorascopic left lung decortication, posto p day [address] surgery and pulmonary following Chest tube has been removed. Encouraged incentive spirometer use at least 10 times every hour while awake IV Solu-Medrol switched to prednisone with pulmonary following, continue breathing inhalational treatments as well Continue with antibiotics with ceftriaxone as sputum culture growing Streptococcus Cardiology on the case for A-fib RVR but no anticoagulation for anemia Pulmonary, cardiology and hematology/oncology following Recommend PT/OT therapy evaluation and case management as patient will need ECF on discharge. Patient has had prolonged hospitalization and will likely require ECF on discharge for continued strength and mobility. Patient has been instructed to increase activity as tolerated get up out of the bed more often chair. Will discuss further with case management once cleared by consultations Follow-up with labs and transfuse if 7 or less. Replace electrolytes per protocol Due to multiple complex medical issues, prognosis is guarded Objective - Vital Signs Vital signs: Vital Signs Temp 98 F 06/10/24 20:00 Pulse 89 06/10/24 20:28 Resp 18 06/10/24 20:00 BP 99/62 06/10/24 20:00 Pulse Ox 97 06/10/24 20:00 FiO2 40 05/29/24 16:00 Intake & Output 06/10/24 06/10/24 06/11/24 06:59 18:59 06:59 Intake Total 718 Balance 718 Weight 53.9 kg Intake: Oral 718 Other: Voiding Method Toilet Toilet # Voids 1 # Bowel Movements 1 ABP, PAP, CO, CI - Last Documented Arterial Blood Pressure 121/88 - Labs CBC & Chem 7: 06/11/24 07:16 06/11/24 07:16 Labs: Abnormal Lab Results - Last 24 Hours (Table) 06/10/24 06/10/24 06/10/24 Range/Units 06:43 06:43 11:26 WBC 11.5 H (3.8-10.6) k/uL RBC 2.71 L (3.80-5.40) m/uL Hgb 8.1 L (11.4-16.0) gm/dL Hct 26.0 L (34.0-46.0) % RDW 20.2 H (11.5-15.5) % Neutrophils # 9.4 H (1.3-7.7) k/uL Carbon Dioxide 32 H (22-30) mmol/L Creatinine 0.36 L (0.52-1.04) mg/dL POC Glucose (mg/dL) 136 H (70-110) mg/dL Calcium 8.3 L (8.4-10.2) mg/dL 06/10/24 Range/Units 19:47 WBC (3.8-10.6) k/uL RBC (3.80-5.40) m/uL Hgb (11.4-16.0) gm/dL Hct (34.0-46.0) % RDW (11.5-15.5) % Neutrophils # (1.3-7.7) k/uL Carbon Dioxide (22-30) mmol/L Creatinine (0.52-1.04) mg/dL POC Glucose (mg/dL) 130 H (70-110) mg/dL Calcium (8.4-10.2) mg/dL Microbiology - Last 24 Hours (Table) 06/07/24 10:24 Gram Stain - Preliminary Other - Other Tissue Culture - Preliminary 06/07/24 10:24 Anaerobic Culture - Preliminary Other - Other
--- NOTE | 2024-06-11 22:56 | P.PN ---
Subjective Progress Note Date: 06/11/24 This is a pleasant 63 years old female with past medical history of multiple medical problems including hypertension, hyperlipidemia, degenerative disc disease, fibromyalgia, multiple sclerosis, anxiety and depression. Patient presents because of worsening dyspnea for 2 days. Patient has a known case of bronchitis which is chronic and there is a 4 reported at home about 3 days prior to arrival to the hospital. 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 Patient oxygen requirement went up to 6 L/min and was getting worse so one-time dose of IV Lasix provided and she was placed on BiPAP, she could tolerated only for 10 minutes and then she started becoming tachycardic and tachypneic with a breathing rate between 40s to 50s. She was hypoxic diaphoretic, sweating and pale. Another A-team was called and patient was moved to the ICU where she got emergent intubated. Staff tried to call the son and left a message I called the son myself Mr. Jefferson at [phone] and left a message to call back. Information was obtained from staff and medical record. Patient was afebrile, on admission She has significant worsening leukocytosis up to 40,000, hemoglobin dropped to 8.5. Platelet count were up to 561 . Liver enzymes mildly elevated. D-dimer was elevated 5.5 and CTA of the chest was obtained showing significant abnormalities : No pulmonary embolism, large left pleural effusion, loculated with complete left lung collapse with possible splenic involvement and enlarged mediastinal lymphadenopathy findings suspicious for malignancy 05/27/2024 Patient got extubated yesterday Patient today was still drowsy lethargic somewhat confused and very weak. She has large pleural effusion and she underwent thoracocentesis today with 1.5 of pleural fluid aspirated and sent for studies. Her WBC jumped up to 73 K and hemoglobin down to 6.6. As such her IV vancomycin continued, IV cefepime added and patient received 1 unit of blood transfusion today Patient also kept on IV Solu-Medrol and Ringer lactate at 100 mL/h ProCalcitonin is elevated 6.7%. 05/28/2024 Patient remains in the ICU, it looks like she was intubated the night before She remains on IV Solu-Medrol and broad-spectrum antibiotic with IV vancomycin and cefepime. No IV fluids running. No anticoagulation because of the bleeding. Hemoglobin improved 6.6 up to 7.5 Leukocytosis improving 73 down to 48 05/29/24 Patient remains in the ICU intubated and sedated, She is still getting broad-spectrum antibiotic with IV vancomycin and cefepime She remains on IV Solu-Medrol Chest x-ray showing increased haziness on the left side lung and both basal areas more on the left side. 05/31/2024 Patient breathing is better today, she talks freely Has frequent bowel movement not sure if his diarrhea about 3 to 4/day However her main problem is the breathing and the pneumonia looks better but it is complicated empyema Interventional radiologist has been consulted for possible pigtail tube insertion. 06/01/24 pt states Breathing is better, currently she is on 4 L, still has some decreased air entry on the left side. She has recent diarrhea controlled with Lomotil She has significant leukocytosis yesterday but is improving, IV Solu-Medrol lowered to 40 mg twice daily Repeat WBC from today is pending She remains on ceftriaxone based on culture results showing alphahemolytic Streptococcus. 06/02/24 Patient oxygen requirement went up from 4 L/min up to 14 L/min Patient went down for IR for pigtail placement Patient still complaining from dyspnea. She has bilateral crepitation Labs showing leukocytosis 28,000, hemoglobin 8.3 She remains on ceftriaxone and IV Solu-Medrol 40 mg and IV Protonix 06/03/2024 Patient is status post rest left upper chest pigtail placement yesterday. Today's postop day #1 Repeat chest x-ray looks catheter in place and there is significant reduction in the size of the fluid collection most likely empyema. She remains on 8 L oxygen this morning lowered to 5 L compared to 4 L yesterday. No significant tachypnea. No chest pain Patient with Eliquis resumed last night after the procedure. She is on ceftriaxone. Patient also on IV Solu-Medrol 40 mg 06/04/24 Patient with likely pleural effusion on the left side/empyema. S/p thoracocentesis however there was still some particulate therefore IR team consulted tube was placed 2 days ago. There is about 1800 cc of purulent discharge collected so far. Patient breathing is better currently on 3 L Currently chest pain is slightly worse after Patient is alternating Mondovi and Dilaudid 06/05/2024 Patient is seen in follow-up today with pulmonary following. Patient continues with chest tube on the left chest wall with significant amount of purulent drainage noted. CT surgery consulted for possible thoracotomy and/or decortication. Patient was currently on Eliquis which needs to be held for at least 48 hours with plans on surgical intervention tentatively for 06/07/2024. Patient is afebrile with no reports of worsening chest pain or shortness of breath. Will continue on antibiotics and medication regimen at this time. Recommend PT/OT therapy evaluation and will discuss further with case management once patient is more stable for discharge. Patient has had prolonged hospitalization and would likely benefit from ECF for continued strength and mobility. 06/06/2024 Patient is seen and evaluated in follow-up this morning currently sitting up in the chair. Patient continues with a chest tube on the left with purulent drainage although some of it is clearing. Patient being followed and evaluated by CT surgery with plans of surgical intervention on 06/07/2024. Continue holding anticoagulation. Patient is afebrile with no reports of chest pain or worsening shortness of breath. Patient does have a weak cough and encouraged to continue coughing and deep breathing along with incentive spirometer use. Recommend PT/OT therapy evaluation. Patient will be n.p.o. at midnight and will await surgical report. 06/07/2024 Patient is seen this morning n.p.o. and scheduled to undergo VATS procedure with decortication with cardiothoracic surgery today. Patient continues on antibiotics left-sided empyema. Patient continues with purulent drainage and noted chest tube and will await surgical report. Pulmonary following as well and will continue on as well as continued breathing treatments. Patient with significant weakness and prolonged hospitalization recommending ECF on discharge. Patient is agreeable and case management following and will be likely going to ECF on discharge. Repeat chest x-ray and continue to monitor closely. Encouraged to increase activity as tolerated getting up out of the bed more often with frequent walks. 06/08/2024 Patient is seen and evaluated in follow-up status post lung decortication on the left and continues with 2 chest tubes with serous drainage noted. Patient is maintained on antibiotics in the form of ceftriaxone and will continue for now, currently awaiting repeat wound cultures. Patient is continued on oral prednisone along with breathing inhalational treatments with pulmonary following closely. Encouraged incentive spirometer use and increase activity as tolerated. Patient has been up and walking and encouraged the patient to sit up in the chair more often. Patient is reporting severe pain on the chest wall and reports the IV Dilaudid only lasts for short period and then the pain is 10/10. Will resume patient's home Lyrica and continue with Mondovi and current regimen. Plan is for patient to go to ECF once stabilized and discharged. 06/09/2024 Patient seen and evaluated in follow-up today with multiple consultations following. Patient has 1 remaining chest tube. Continuing for now and will follow-up with serial chest x-rays. Patient reports minimal improvement in her breathing although no worsening. Patient continues to have pain at that chest tube site. Hemoglobin was noted to be 6.7 will give a unit of PRBC and follow- up with repeat labs. Patient is afebrile and cultures thus far have been negative. Encouraged to increase activity as tolerated and oral intake. Patient will be going to ECF once stabilized and cleared by consultations. Prognosis remains guarded. 06/10/2024 Patient is lying in the bed. Awake alert and oriented x 3. Patient is status post left video-assisted thoracoscopic decortication. Postoperative day 3. Both chest tubes have been removed. Currently breathing status is stable. Denies any chest pain. Some discomfort with deep breathing. Patient has been afebrile. Requiring 2 L oxygen via nasal cannula. Chest x-ray showed increasing left pleural effusion. Resolution of previous right pleural fluid. Increasing bibasilar infiltrates. Laboratory data showed WBC 11.5 hemoglobin 8.1 and platelets 303 sodium 138 potassium 4.1 chloride 104 bicarb is 32 BUN 7 and creatinine 0.36 and calcium 8.3 and magnesium 1.7. Patient is on antibiotics and of ceftriaxone 2 g every 12. Pulmonary and CT surgery is on board. Patient is also on prednisone 5 mg p.o. daily 06/11/2024 Patient is postoperative day 4. Video-assisted thoracoscopy with decortication for empyema. Chest tubes have been removed. Patient remains on antibiotics of ceftriaxone. Otherwise awake alert and oriented x 3. On 2 L oxygen via nasal cannula. Afebrile. No chest pain. No worsening shortness of breath. No nausea vomiting abdominal pain or diarrhea.Laboratory data showed WBC 11.5 hemoglobin 8.1 and platelets 303, sodium 138 potassium 4.1 chloride 104 bicarb is 32 BUN 7 and creatinine 0.36 and blood sugar 96. Magnesium 1.7. Review of systems: Constitutional: No reports of fatigue, fever, or chills Cardiovascular: No reports of chest pain or palpitations Respiratory: No reports of worsening shortness of breath or cough, reports chest wall pain at the chest tube site none GI: No reports of nausea, vomiting, or diarrhea : No reports of dysuria or retention Neurovascular: reports of generalized weakness All medications have been reviewed Physical exam: GENERAL: The patient is awake, alert and oriented x 3, well-developed, thin built, elderly appearing, ill-appearing HEENT: Pupils are round and equally reacting to light. EOMI. No scleral icterus. No conjunctival pallor. Normocephalic, atraumatic. No pharyngeal erythema. No thyromegaly. CARDIOVASCULAR: S1 and S2 muffled PULMONARY: Diminished breath sounds bilaterally otherwise chest is clear to auscultation, no wheezing , no crackles. Weak inspiration. ABDOMEN: Soft, nontender, nondistended, normoactive bowel sounds. No palpable organomegaly. Thin MUSCULOSKELETAL: No joint swelling or deformity. EXTREMITIES: No cyanosis, clubbing, or pedal edema. NEUROLOGICAL: Gross neurological examination did not reveal any focal deficits. Diffusely weak SKIN: No rashes. no petechiae. Assessment: Large loculated left pleural effusion with associated complete collapse of the left lung with mediastinal lymphadenopathy suspicious for malignancy is high. Also there is involvement of the spleen and diaphragm. Status post thoracocentesis on 05/27 with 1.5 L removed. S/P bronchoscopy, with BAL, brushings, biopsies, left lower lobe. Empyema of the left, status post chest tube, status post thorascopic left lung decortication with CT surgery 06/07/2024, chest tubes have been removed. Severe acute hypoxic respiratory failure, present on admission. Requiring intubation and mechanical ventilation. Successfully extubated currently on 3 L via nasal cannula Acute COPD exacerbation Severe leukocytosis with findings above pneumonia is highly suspected. worsening anemia requiring 1 unit of blood transfusion on 05/27, hemoglobin is 6.7 today received a unit of PRBC New onset A-fib and RVR, currently rate controlled but no anticoagulation for severe anemia Hypertension Hyperlipidemia Degenerative disc disease Fibromyalgia Multiple sclerosis Anxiety and depression Moderate calorie protein malnutrition with a BMI of 19.8 Gait dysfunction with generalized weakness GI prophylaxis DVT prophylaxis Full code Plan: Patient is status post video-assisted thorascopic left lung decortication, postop day [address] surgery and pulmonary following Chest tube has been removed. Encouraged incentive spirometer use at least 10 times every hour while awake IV Solu-Medrol switched to prednisone with pulmonary following, continue breathing inhalational treatments as well Continue with antibiotics with ceftriaxone as sputum culture growing Streptococcus. Antibiotics will be changed to by mouth at discharge. Cardiology on the case for A-fib RVR but no anticoagulation for anemia Pulmonary, cardiology and hematology/oncology following Recommend PT/OT therapy evaluation and case management as patient will need ECF on discharge. Patient has had prolonged hospitalization and will likely require ECF on discharge for continued strength and mobility. Patient has been instructed to increase activity as tolerated get up out of the bed more often chair. Will discuss further with case management once cleared by consultations Follow-up with labs and transfuse if 7 or less. Replace electrolytes per protocol Due to multiple complex medical issues, prognosis is guarded Objective - Vital Signs Vital signs: Vital Signs Temp 98.2 F 06/11/24 08:05 Pulse 88 06/11/24 22:18 Resp 18 06/11/24 20:19 BP 107/69 06/11/24 20:19 Pulse Ox 94 L 06/11/24 20:19 FiO2 40 05/29/24 16:00 Intake & Output 06/11/24 06/11/24 06/12/24 06:59 18:59 06:59 Intake Total 538 Output Total 200 Balance 338 Weight 53.8 kg Intake: Oral 538 Output: Stool 200 Other: Voiding Method Toilet Toilet Toilet # Voids 1 ABP, PAP, CO, CI - Last Documented Arterial Blood Pressure 121/88 - Labs CBC & Chem 7: 06/11/24 07:16 06/11/24 07:16 Labs: Abnormal Lab Results - Last 24 Hours (Table) 06/11/24 06/11/24 06/11/24 Range/Units 07:16 07:16 11:37 RBC 2.90 L (3.80-5.40) m/uL Hgb 8.6 L (11.4-16.0) gm/dL Hct 28.4 L (34.0-46.0) % MCHC 30.3 L (31.0-37.0) g/dL RDW 19.8 H (11.5-15.5) % Sodium 135 L (137-145) mmol/L Creatinine 0.34 L (0.52-1.04) mg/dL POC Glucose (mg/dL) 168 H (70-110) mg/dL 06/11/24 Range/Units 20:03 RBC (3.80-5.40) m/uL Hgb (11.4-16.0) gm/dL Hct (34.0-46.0) % MCHC (31.0-37.0) g/dL RDW (11.5-15.5) % Sodium (137-145) mmol/L Creatinine (0.52-1.04) mg/dL POC Glucose (mg/dL) 122 H (70-110) mg/dL Microbiology - Last 24 Hours (Table) 06/07/24 10:24 Gram Stain - Final Other - Other Tissue Culture - Final
[2024-06-12 06:33] LABS: Glucose,Whole Blood 101 mg/dL (70-110)
[2024-06-12 10:08] LABS: Anisocytosis Slight; Basophils % (A) 0 %; Eosinophils # (A) 0.4 k/uL (0-0.7); Eosinophils % (A) 3 %; HCT 27.9 % (34.0-46.0); HGB 8.5 gm/dL (11.4-16.0); Hypochromasia Moderate; Lymphocytes # (A) 1.1 k/uL (1.0-4.8); Lymphocytes % (A) 9 %; MCH 29.4 pg (25.0-35.0); MCHC 30.5 g/dL (31.0-37.0); MCV 96.3 fL (80.0-100.0); Macrocytosis Slight; Mean Platelet Volume 9.8; Monocytes # (A) 0.4 k/uL (0-1.0); Monocytes % (A) 3 %; Neutrophils # (A) 10.6 k/uL (1.3-7.7); Neutrophils % (A) 84 %; Platelet Count 379 k/uL (150-450); RDW 19.5 % (11.5-15.5); WBC 12.6 k/uL (3.8-10.6)
[2024-06-12 11:46] LABS: Glucose,Whole Blood 117 mg/dL (70-110)
--- NOTE | 2024-06-12 12:10 | P.PN ---
Subjective Progress Note Date: 06/12/24 Principal diagnosis: Respiratory failure. Pulmonary consult dated May 26, 2024. 63-year-old female seen this morning in consultation. The patient was seen initially in the emergency department, on May 25. She apparently came in with complaints of shortness of breath, and low saturations. The patient has been treated recently for bronchitis with steroids and antibiotics. This morning, a rapid response was called on this patient, and, the charge nurse called me, to tell me that the patient would benefit from Lasix, and BiPAP. That was done initially, but subsequent to that, another rapid response was called on this patient, and the patient needed to be transferred to the intensive care unit, for intubation and mechanical ventilation. Currently, she is on volume assist- control, rate 20, tidal volume 350, FiO2 100%, PEEP of 5. She is on a Cardizem drip at 10 mg an hour for atrial fibrillation, propofol at 60 mcg/kg/min, and she is receiving some fluid, i.e. saline, at 1 L, as a fluid bolus. Afterwards, she will be switched to lactated Ringer's at 100 cc an hour. She had a an arterial line placed, and a central line placed. We did a right radial arterial line, and a left subclavian triple-lumen catheter. She was intubated by the MAIL HANDLER ASSISTANT. Current labs include a white count of 54.7, hemoglobin 8.7, hematocrit 29.7, and a platelet count of 605,000. Initial blood gases showed a pO2 of 146, pCO2 of 61, and pH is 7.24. The rate was increased from 28 to 24 breaths/min. In addition, the FiO2 was dropped down to 70%. Sodium 138, potassium 4.9, chlorides 102, CO2 28, BUN 18, creatinine 0.45. Glucose is 288. Calcium is 8.9. Lactic acid 1.3. The left chest reveals a pleural effusion, with possible loculations. An ultrasound was ordered. In addition, the patient had bronchoscopy, with airway examination, therapeutic lavage, BAL, brushings left lower lobe, and endobronchial and transbronchial biopsies left lower lobe. Progress note dated May 27, 2024. 63-year-old female seen in consultation yesterday. Please see the note above. The patient developed lopez respiratory failure, and was intubated, yesterday, May 26. She remains on mechanical ventilator. She is on volume assist- control, rate 24, tidal volume 350, FiO2 60%, to be reduced down to 50%, PEEP of 5. Blood gases show pO2 of 112, pCO2 44, pH is 7.37. The patient continues on propofol at 60 mcg/kg/min, norepinephrine at 7 mcg/min, fentanyl at 2 mcg/kg/h, LR at 100 cc an hour. The patient is on vancomycin, and we add cefepime. The patient had a left-sided thoracentesis today. 1.5 L of milky slightly green fluid was removed from the left pleural space. The patient's procalcitonin level is elevated 9.74. Current labs include a white count of 73.5, hemoglobin 6.6, hematocrit 22.2, platelet count 452,000. The patient will get 1 unit of PRBCs. In addition, sodium 139, potassium 4.8, chlorides 108, CO2 21, anion gap 10, BUN 21, creatinine 0.38. Calcium is 8.3. Magnesium is 1.9. Cultures are thus far negative. The postthoracentesis chest x-ray shows an improved left- sided pleural fluid collection, and a small to moderate size left-sided hydropneumothorax. Progress note dated May 28, 2024. 63-year-old female seen in consultation 2 days ago. The patient remains on mechanical ventilator. She is seen today in room 262. She is on volume assist-control, rate 24, tidal volume 350, FiO2 50%, PEEP of 5. Blood gases show pO2 119, pCO2 45, pH is 7.40. The FiO2 will be reduced at 40%. She is sedated with propofol at 65 mcg/kg/min, norepinephrine at 1.2 mcg/min, and fentanyl at 2 mcg/kg/h. She is getting lactated Ringer's at 100 cc an hour, and vital high-protein at 33 cc an hour. She continues on cefepime, and vancomycin. Current laboratory data includes a white count 48.1, hemoglobin 7.5, hematocrit 25.6, and platelet count 382,000. Sodium 140, potassium 4.4, chlorides 111, CO2 26, BUN 24, creatinine 0.42. Glucose is 215. Calcium 8.2. Cultures thus far are negative. That includes bronchoscopy results. Chest x-ray shows a relati vely clear right lung. There is some haziness, on the left side, with a left- sided pleural effusion. She did undergo thoracentesis yesterday. 06/04/2024, I am seeing the patient for a follow-up. The patient is doing well. Patient continues to have active drainage from the pigtail catheter. The c atheter drained approximately 730 cc overnight. The patient received a dose of thrombolytic yesterday without any major difficulties. This improve the output from the pigtail catheter. A repeat chest x-ray was done today and the findings are essentially stable. The patient has a stable loculated left-sided pneumothorax. No new labs are available from today. The pleural fluid was again sent for culture. The most recent culture was positive for Streptococcus and the patient is currently on IV Rocephin 2 g every 24 hours. She is awake and alert and communicating. Some limited pain and discomfort over the left chest and the pain is tolerable. She is on 40s of oxygen by nasal cannula with a pulse ox of 97%. Patient was evaluated today on 06/05/2024, patient is basically about the same, continues to have a significant amount of drainage seems to be purulent drainage from her left-sided pleural space/empyema, patient remains on antibiotics, she has now a relatively good sized left-sided pneumothorax and I suspect that this is a trapped lung since the pneumothorax seems to be the area where the fluid was present to begin with patient is on 3 L nasal cannula, O2 sat is 95%. Continues to have a pigtail catheter in place. And draining significant amount of fluid. The culture on the fluid came back positive for Streptococcus intermedius, patient did receive lytic therapy, however considering the worsening chest x-ray, I am recommending a l thoracic surgery consultation, wondering if the patient may eventually require decortication clinically, the patient does not seem to be in any distress Patient was evaluated 06/06/2024, clinically about the same, patient was seen by thoracic surgery, and now she is scheduled for left thoracotomy with decortication mostly because of her persistent empyema and loculated pleural effusion. And not to mention the patient seems to have a trapped lung. Patient is not improving much with medical therapy, and surgery is strongly recommended patient is on 3 L nasal cannula, hemodynamically stable, does not seem to be in distress, continues to have significant amount of purulent drainage from the left sided chest tube into the Pleur-evac continues to have what seems to be a pneumothorax/trapped lung Patient was evaluated today on 06/07/2024, patient is status post left video- assisted thoracoscopic decortication, this was done today by Dr. Castro. I saw the patient in the recovery room, reviewed her ABG, advised to place on few liters nasal cannula and titrate to O2 saturation just above 90%. Patient seems to be in pain, however her postoperative chest x-ray shows much improvement and complete reexpansion of the left lung. No acute process was noted. Chest tubes seem to be in proper position Patient was evaluated today on 06/08/2024, patient is doing fairly well. She is now postoperative day #1, bronchoscopy with left video-assisted thoracoscopic decortication done by Dr. Castro. Patient continues to have chest tube in place, will dynamically stable, no air leaks noted in the chest tubes. Chest x-ray showed complete reexpansion of the left lungWBC count is 14.1 hemoglobin 7.7 basic metabolic profile is normal renal profile is normal Reevaluated today on 06/09/2024, patient is now postoperative day #2, she is status post left video-assisted thoracoscopic decortication, patient is being treated for empyema. Pooja on antibiotics, she is on ceftriaxone, cultures were positive for Streptococcus intermedius. Chest x-ray is showing improvement, clinically the patient is feeling better. And the chest tube remains in place. Evidence of air leak, chest tube is now to waterseal. No leak is present. Continues to have some serosanguineous drainage 120 cc in the last 24 hours Was reevaluated today on 06/11/2024, she is now postoperative day #4, patient had left video-assisted thoracoscopic decortication for empyema. Cultures from the pleural effusion were positive for Streptococcus intermedius, remains on Rocephin, eventually the patient will need to be on oral antibiotics for couple more weeks postdischarge. Patient has some shortness of breath, intermittent cough, no wheezing, chest x-ray is showing small left pleural effusion, and atelectasis, not large enough to consider thoracentesis at this point yet patient did have her chest tube removed couple days ago. CBC is relatively normal WBC count is 9.9 hemoglobin 8.6 electrolytes are normal renal profile is normal Progress note dated June 12, 2024. The patient is seen today in room 364. She is postoperative day #5, S/P left video-assisted thoracoscopic decortication, for empyema. Cultures from the pleural fluid were positive for Streptococcus intermedius, and the patient remains on antibiotic. Clinically, the patient is doing better. She is currently on saline at 20 cc an hour, and 2 L by nasal cannula. Her breathing is stable, she denies any unusual or worsening shortness of breath, cough, wheezing, chest tightness, or phlegm production. Current laboratory data includes a white count of 12.6, hemoglobin 8.5, hematocrit 27.9, and platelet count 379,000. Glucose is 117. No recent chest x-ray to report. Objective - Vital Signs Vital signs: Vital Signs Temp 98.2 F 06/11/24 08:05 Pulse 80 06/12/24 11:45 Resp 18 06/12/24 11:45 BP 116/74 06/12/24 09:18 Pulse Ox 99 06/12/24 09:18 FiO2 40 05/29/24 16:00 Intake & Output 06/11/24 06/12/24 06/12/24 18:59 06:59 18:59 Intake Total 538 370 Output Total 200 Balance 338 370 Weight 51.6 kg Intake: IV 10 Invasive Line 10 10 Oral 538 360 Output: Stool 200 Other: Voiding Method Toilet Toilet Toilet ABP, PAP, CO, CI - Last Documented Arterial Blood Pressure 121/88 - Exam No acute distress, awake and alert, currently on 2 L nasal cannula. HEENT examination is grossly unremarkable. Neck supple. Full range of motion. No adenopathy thyromegaly or neck vein distention. Cardiovascular examination reveals regular rhythm rate. S1-S2 normal. No S3 or S4. No discernible murmur noted. Heart sounds are distant. Lungs reveal bilateral coarse rhonchi. No expiratory wheezes. No crackles. Breath sounds equal. Saturations are 99% on 2 L Abdomen soft without bowel sounds. No masses or tenderness. Extremities are intact. No cyanosis clubbing or edema. Skin is without rash or lesion. Neurologic examination is brief but nonfocal. - Labs CBC & Chem 7: 06/12/24 06:17 06/11/24 07:16 Labs: Abnormal Lab Results - Last 24 Hours (Table) 06/11/24 06/12/24 06/12/24 Range/Units 20:03 06:17 11:45 WBC 12.6 H (3.8-10.6) k/uL RBC 2.90 L (3.80-5.40) m/uL Hgb 8.5 L (11.4-16.0) gm/dL Hct 27.9 L (34.0-46.0) % MCHC 30.5 L (31.0-37.0) g/dL RDW 19.5 H (11.5-15.5) % Neutrophils # 10.6 H (1.3-7.7) k/uL POC Glucose (mg/dL) 122 H 117 H (70-110) mg/dL Microbiology - Last 24 Hours (Table) 06/07/24 10:24 Anaerobic Culture - Final Other - Other 06/07/24 10:24 Gram Stain - Final Other - Other Tissue Culture - Final Assessment and Plan Assessment: Postoperative day #5, S/P left video-assisted thoracoscopic lung decortication for empyema. Acute respiratory failure, requiring intubation, and mechanical ventilation, May 26, 2024. Left lower lobe pneumonia, with empyema, secondary to Streptococcus intermedius. Left lung opacification, likely on the basis of fluid/pneumonia/mass. S/P bronchoscopy, with BAL, brushings, biopsies, left lower lobe. S/P left-sided thoracentesis, with 1.5 L of fluid removed, May 27, 2024. History of ongoing tobacco use with nicotine addiction. History of hypertension. History of hyperlipidemia. History of fibromyalgia. History of migraine cephalgia. History of ulcerative colitis. History of anxiety/depression. Plan: Plan dated May 26, 2024. The patient was transferred to the intensive care unit, for further monitoring and management. The patient was intubated by the MAIL HANDLER ASSISTANT, in the ICU. A right radial arterial line was placed, as well as a left subclavian triple-lumen catheter. In addition, we did bronchoscopy, airway examination, therapeutic lavage, BAL left lower lobe, brushings left lower lobe, and biopsies in the area of the left lower lobe. The patient tolerated all of this well. Labs, x-rays, medications are reviewed. The patient will also have an ultrasound of the left chest. If there is free-flowing fluid, we may wish to do a thoracentesis. The airways had lots of purulent looking secretions. There were sent for analysis. Prognosis is guarded. Plan dated May 27, 2024. The patient had a left-sided thoracentesis done at the bedside. 1.5 L of milky slightly green fluid was removed from the left pleural space. This could be a chylothorax. The fluid was sent for usual analysis, including cytology, microbiology, and chemistry. We also added a cholesterol level and chylomicrons level. The patient is currently on multiple medications including propofol, norepinephrine, and fentanyl. The patient is also getting lactated Ringer's at 100 cc an hour. We will start tube feedings today. The patient's procalcitonin level was 9.74. The patient was on Vanco, and we added cefepime. Finally we drop the FiO2 from 60%, down to 50%. We will continue to follow make recommendations along the way. Patient's overall prognosis remains very guarded. Still very concerned about the possibility of malignancy. Plan dated May 28, 2024. The patient is seen today in room 262. She remains on the mechanical ventil ator. Blood gases are reasonable. FiO2 was dropped down to 40%. She continues on propofol at 65 mcg/kg/min, norepinephrine at 1.2 mcg/min, fentanyl 2 mcg/kg/h. She also continues on lactated Ringer's at 100 cc an hour, and vital high-protein at 33 cc an hour. She is on cefepime and vancomycin. Culture data is thus far negative. The patient underwent thoracentesis yesterday. Those results are currently pending as well. We will continue to follow make recommendations. Prognosis is certainly guarded. Procalcitonin levels were elevated. Plan dated June 12, 2024. The patient appears to be doing much better. She is postoperative day #5, with a left-sided video-assisted thoracoscopic decortication for empyema. The patient continues on antibiotic. Labs, x-rays, medications are reviewed. I saw the patient last on May 28, at which time she was still mechanically ventilated. We will continue to follow make recommendations along the way. The patient continues on antibiotics, oxygen, bronchodilators, and incentive spirometry. Time with Patient: Less than 30
[2024-06-12 17:01] LABS: Glucose,Whole Blood 290 mg/dL (70-110)
[2024-06-12 20:01] LABS: Glucose,Whole Blood 156 mg/dL (70-110)
[2024-06-13 05:36] LABS: Glucose,Whole Blood 98 mg/dL (70-110)
[2024-06-13 09:12] LABS: African American GFR (CKD) >90 (>60 ml/min/1.73 sqM); Anion Gap 5 mmol/L; Blood Urea Nitrogen 11 mg/dL (7-17); Calcium 8.9 mg/dL (8.4-10.2); Carbon Dioxide 30 mmol/L (22-30); Chloride 102 mmol/L (98-107); Glucose 152 mg/dL (74-99); Non-African American GFR(CKD) >90 (>60 ml/min/1.73 sqM); Potassium 4.3 mmol/L (3.5-5.1); Sodium 137 mmol/L (137-145)
[2024-06-13 09:24] LABS: Anisocytosis Slight; HGB 8.8 gm/dL (11.4-16.0); Hypochromasia Marked; MCH 29.3 pg (25.0-35.0); MCHC 29.4 g/dL (31.0-37.0); MCV 99.6 fL (80.0-100.0); Macrocytosis Moderate; Mean Platelet Volume 9.3; Platelet Count 328 k/uL (150-450); RBC 3.01 m/uL (3.80-5.40); RDW 19.2 % (11.5-15.5); WBC 11.5 k/uL (3.8-10.6)
[2024-06-13 10:11] LABS: Band Neutrophils % 1 %; Eosinophils # (M) 0.35 k/uL (0-0.7); Lymphocytes # (M) 0.69 k/uL (1.0-4.8); Monocytes # (M) 0.35 k/uL (0-1.0); Neutrophils % (M) 88 %; Nucleated Red Blood Cells 0 /100 WBC (0-0); Total Cells Counted 200
[2024-06-13 11:23] LABS: Glucose,Whole Blood 101 mg/dL (70-110)
--- NOTE | 2024-06-13 13:21 | P.PN ---
Subjective Progress Note Date: 06/13/24 Principal diagnosis: Respiratory failure. Pulmonary consult dated May 26, 2024. 63-year-old female seen this morning in consultation. The patient was seen initially in the emergency department, on May 25. She apparently came in with complaints of shortness of breath, and low saturations. The patient has been treated recently for bronchitis with steroids and antibiotics. This morning, a rapid response was called on this patient, and, the charge nurse called me, to tell me that the patient would benefit from Lasix, and BiPAP. That was done initially, but subsequent to that, another rapid response was called on this patient, and the patient needed to be transferred to the intensive care unit, for intubation and mechanical ventilation. Currently, she is on volume assist- control, rate 20, tidal volume 350, FiO2 100%, PEEP of 5. She is on a Cardizem drip at 10 mg an hour for atrial fibrillation, propofol at 60 mcg/kg/min, and she is receiving some fluid, i.e. saline, at 1 L, as a fluid bolus. Afterwards, she will be switched to lactated Ringer's at 100 cc an hour. She had a an arterial line placed, and a central line placed. We did a right radial arterial line, and a left subclavian triple-lumen catheter. She was intubated by the OIL DRILLER. Current labs include a white count of 54.7, hemoglobin 8.7, hematocrit 29.7, and a platelet count of 605,000. Initial blood gases showed a pO2 of 146, pCO2 of 61, and pH is 7.24. The rate was increased from 28 to 24 breaths/min. In addition, the FiO2 was dropped down to 70%. Sodium 138, potassium 4.9, chlorides 102, CO2 28, BUN 18, creatinine 0.45. Glucose is 288. Calcium is 8.9. Lactic acid 1.3. The left chest reveals a pleural effusion, with possible loculations. An ultrasound was ordered. In addition, the patient had bronchoscopy, with airway examination, therapeutic lavage, BAL, brushings left lower lobe, and endobronchial and transbronchial biopsies left lower lobe. Progress note dated May 27, 2024. 63-year-old female seen in consultation yesterday. Please see the note above. The patient developed lopez respiratory failure, and was intubated, yesterday, May 26. She remains on mechanical ventilator. She is on volume assist- control, rate 24, tidal volume 350, FiO2 60%, to be reduced down to 50%, PEEP of 5. Blood gases show pO2 of 112, pCO2 44, pH is 7.37. The patient continues on propofol at 60 mcg/kg/min, norepinephrine at 7 mcg/min, fentanyl at 2 mcg/kg/h, LR at 100 cc an hour. The patient is on vancomycin, and we add cefepime. The patient had a left-sided thoracentesis today. 1.5 L of milky slightly green fluid was removed from the left pleural space. The patient's procalcitonin level is elevated 9.74. Current labs include a white count of 73.5, hemoglobin 6.6, hematocrit 22.2, platelet count 452,000. The patient will get 1 unit of PRBCs. In addition, sodium 139, potassium 4.8, chlorides 108, CO2 21, anion gap 10, BUN 21, creatinine 0.38. Calcium is 8.3. Magnesium is 1.9. Cultures are thus far negative. The postthoracentesis chest x-ray shows an improved left- sided pleural fluid collection, and a small to moderate size left-sided hydropneumothorax. Progress note dated May 28, 2024. 63-year-old female seen in consultation 2 days ago. The patient remains on mechanical ventilator. She is seen today in room 262. She is on volume assist-control, rate 24, tidal volume 350, FiO2 50%, PEEP of 5. Blood gases show pO2 119, pCO2 45, pH is 7.40. The FiO2 will be reduced at 40%. She is sedated with propofol at 65 mcg/kg/min, norepinephrine at 1.2 mcg/min, and fentanyl at 2 mcg/kg/h. She is getting lactated Ringer's at 100 cc an hour, and vital high-protein at 33 cc an hour. She continues on cefepime, and vancomycin. Current laboratory data includes a white count 48.1, hemoglobin 7.5, hematocrit 25.6, and platelet count 382,000. Sodium 140, potassium 4.4, chlorides 111, CO2 26, BUN 24, creatinine 0.42. Glucose is 215. Calcium 8.2. Cultures thus far are negative. That includes bronchoscopy results. Chest x-ray shows a relati vely clear right lung. There is some haziness, on the left side, with a left- sided pleural effusion. She did undergo thoracentesis yesterday. 06/04/2024, I am seeing the patient for a follow-up. The patient is doing well. Patient continues to have active drainage from the pigtail catheter. The c atheter drained approximately 730 cc overnight. The patient received a dose of thrombolytic yesterday without any major difficulties. This improve the output from the pigtail catheter. A repeat chest x-ray was done today and the findings are essentially stable. The patient has a stable loculated left-sided pneumothorax. No new labs are available from today. The pleural fluid was again sent for culture. The most recent culture was positive for Streptococcus and the patient is currently on IV Rocephin 2 g every 24 hours. She is awake and alert and communicating. Some limited pain and discomfort over the left chest and the pain is tolerable. She is on 40s of oxygen by nasal cannula with a pulse ox of 97%. Patient was evaluated today on 06/05/2024, patient is basically about the same, continues to have a significant amount of drainage seems to be purulent drainage from her left-sided pleural space/empyema, patient remains on antibiotics, she has now a relatively good sized left-sided pneumothorax and I suspect that this is a trapped lung since the pneumothorax seems to be the area where the fluid was present to begin with patient is on 3 L nasal cannula, O2 sat is 95%. Continues to have a pigtail catheter in place. And draining significant amount of fluid. The culture on the fluid came back positive for Streptococcus intermedius, patient did receive lytic therapy, however considering the worsening chest x-ray, I am recommending a l thoracic surgery consultation, wondering if the patient may eventually require decortication clinically, the patient does not seem to be in any distress Patient was evaluated 06/06/2024, clinically about the same, patient was seen by thoracic surgery, and now she is scheduled for left thoracotomy with decortication mostly because of her persistent empyema and loculated pleural effusion. And not to mention the patient seems to have a trapped lung. Patient is not improving much with medical therapy, and surgery is strongly recommended patient is on 3 L nasal cannula, hemodynamically stable, does not seem to be in distress, continues to have significant amount of purulent drainage from the left sided chest tube into the Pleur-evac continues to have what seems to be a pneumothorax/trapped lung Patient was evaluated today on 06/07/2024, patient is status post left video- assisted thoracoscopic decortication, this was done today by Dr. Castro. I saw the patient in the recovery room, reviewed her ABG, advised to place on few liters nasal cannula and titrate to O2 saturation just above 90%. Patient seems to be in pain, however her postoperative chest x-ray shows much improvement and complete reexpansion of the left lung. No acute process was noted. Chest tubes seem to be in proper position Patient was evaluated today on 06/08/2024, patient is doing fairly well. She is now postoperative day #1, bronchoscopy with left video-assisted thoracoscopic decortication done by Dr. Castro. Patient continues to have chest tube in place, will dynamically stable, no air leaks noted in the chest tubes. Chest x-ray showed complete reexpansion of the left lungWBC count is 14.1 hemoglobin 7.7 basic metabolic profile is normal renal profile is normal Reevaluated today on 06/09/2024, patient is now postoperative day #2, she is status post left video-assisted thoracoscopic decortication, patient is being treated for empyema. Pooja on antibiotics, she is on ceftriaxone, cultures were positive for Streptococcus intermedius. Chest x-ray is showing improvement, clinically the patient is feeling better. And the chest tube remains in place. Evidence of air leak, chest tube is now to waterseal. No leak is present. Continues to have some serosanguineous drainage 120 cc in the last 24 hours Was reevaluated today on 06/11/2024, she is now postoperative day #4, patient had left video-assisted thoracoscopic decortication for empyema. Cultures from the pleural effusion were positive for Streptococcus intermedius, remains on Rocephin, eventually the patient will need to be on oral antibiotics for couple more weeks postdischarge. Patient has some shortness of breath, intermittent cough, no wheezing, chest x-ray is showing small left pleural effusion, and atelectasis, not large enough to consider thoracentesis at this point yet patient did have her chest tube removed couple days ago. CBC is relatively normal WBC count is 9.9 hemoglobin 8.6 electrolytes are normal renal profile is normal Progress note dated June 12, 2024. The patient is seen today in room 364. She is postoperative day #5, S/P left video-assisted thoracoscopic decortication, for empyema. Cultures from the pleural fluid were positive for Streptococcus intermedius, and the patient remains on antibiotic. Clinically, the patient is doing better. She is currently on saline at 20 cc an hour, and 2 L by nasal cannula. Her breathing is stable, she denies any unusual or worsening shortness of breath, cough, wheezing, chest tightness, or phlegm production. Current laboratory data includes a white count of 12.6, hemoglobin 8.5, hematocrit 27.9, and platelet count 379,000. Glucose is 117. No recent chest x-ray to report. Progress note dated June 13, 2024. The patient is seen today in room 364. She is doing well. She is not receiving any IV fluids. She is on 2 L of oxygen. The patient is hoping to be discharged home soon. She is postoperative day #6, status post video-assisted thoracoscopic decortication of a left lung empyema. Her breathing is much improved, and she appears to be doing well. Current labs include a white count 11.5, hemoglobin 8.8, hematocrit 30, platelet count 3 28,000. Sodium 137, potassium 4.3, chlorides 102, CO2 30, BUN 11, creatinine 0.39. Glucose is 101. Calcium is 8.9. Chest x-ray today. Objective - Vital Signs Vital signs: Vital Signs Temp 98 F 06/13/24 08:00 Pulse 74 06/13/24 12:00 Resp 16 06/13/24 12:00 BP 93/68 06/13/24 12:00 Pulse Ox 100 06/13/24 12:00 FiO2 40 05/29/24 16:00 Intake & Output 06/12/24 06/13/24 06/13/24 18:59 06:59 18:59 Intake Total 850 60 Balance 850 60 Weight 51.8 kg Intake: IV 10 Invasive Line 10 10 Oral 840 60 Other: Voiding Method Toilet Toilet Toilet # Voids 2 1 ABP, PAP, CO, CI - Last Documented Arterial Blood Pressure 121/88 - Exam No acute distress, awake and alert, currently on 2 L nasal cannula. HEENT examination is grossly unremarkable. Neck supple. Full range of motion. No adenopathy thyromegaly or neck vein distention. Cardiovascular examination reveals regular rhythm rate. S1-S2 normal. No S3 or S4. No discernible murmur noted. Heart sounds are distant. Lungs reveal bilateral coarse rhonchi. No expiratory wheezes. No crackles. Breath sounds equal. Saturations are 99% on 2 L Abdomen soft without bowel sounds. No masses or tenderness. Extremities are intact. No cyanosis clubbing or edema. Skin is without rash or lesion. Neurologic examination is brief but nonfocal. - Labs CBC & Chem 7: 06/13/24 08:06 06/13/24 08:06 Labs: Abnormal Lab Results - Last 24 Hours (Table) 06/12/24 06/12/24 06/13/24 Range/Units 17:00 19:59 08:06 WBC 11.5 H (3.8-10.6) k/uL RBC 3.01 L (3.80-5.40) m/uL Hgb 8.8 L (11.4-16.0) gm/dL Hct 30.0 L (34.0-46.0) % MCHC 29.4 L (31.0-37.0) g/dL RDW 19.2 H (11.5-15.5) % Neutrophils # (Manual) 10.20 H (1.3-7.7) k/uL Lymphocytes # (Manual) 0.69 L (1.0-4.8) k/uL Creatinine (0.52-1.04) mg/dL Glucose (74-99) mg/dL POC Glucose (mg/dL) 290 H 156 H (70-110) mg/dL 06/13/24 Range/Units 08:06 WBC (3.8-10.6) k/uL RBC (3.80-5.40) m/uL Hgb (11.4-16.0) gm/dL Hct (34.0-46.0) % MCHC (31.0-37.0) g/dL RDW (11.5-15.5) % Neutrophils # (Manual) (1.3-7.7) k/uL Lymphocytes # (Manual) (1.0-4.8) k/uL Creatinine 0.39 L (0.52-1.04) mg/dL Glucose 152 H (74-99) mg/dL POC Glucose (mg/dL) (70-110) mg/dL Microbiology - Last 24 Hours (Table) 05/27/24 09:45 Fungal Culture - Preliminary Pleural Fluid 05/27/24 09:45 Acid Fast Bacilli Smear - Preliminary Pleural Fluid Acid Fast Bacilli Culture - Preliminary 05/26/24 10:00 Acid Fast Bacilli Smear - Preliminary Bronchoalviolar Lavage - Left Acid Fast Bacilli Culture - Preliminary Assessment and Plan Assessment: Postoperative day #6, S/P left video-assisted thoracoscopic lung decortication for empyema. Acute respiratory failure, requiring intubation, and mechanical ventilation, May 26, 2024. Left lower lobe pneumonia, with empyema, secondary to Streptococcus intermedius. Left lung opacification, likely on the basis of fluid/pneumonia/mass. S/P bronchoscopy, with BAL, brushings, biopsies, left lower lobe. S/P left-sided thoracentesis, with 1.5 L of fluid removed, May 27, 2024. History of ongoing tobacco use with nicotine addiction. History of hypertension. History of hyperlipidemia. History of fibromyalgia. History of migraine cephalgia. History of ulcerative colitis. History of anxiety/depression. Plan: Plan dated May 26, 2024. The patient was transferred to the intensive care unit, for further monitoring and management. The patient was intubated by the OIL DRILLER, in the ICU. A right radial arterial line was placed, as well as a left subclavian triple-lumen catheter. In addition, we did bronchoscopy, airway examination, therapeutic lavage, BAL left lower lobe, brushings left lower lobe, and biopsies in the area of the left lower lobe. The patient tolerated all of this well. Labs, x-rays, medications are reviewed. The patient will also have an ultrasound of the left chest. If there is free-flowing fluid, we may wish to do a thoracentesis. The airways had lots of purulent looking secretions. There were sent for analysis. Prognosis is guarded. Plan dated May 27, 2024. The patient had a left-sided thoracentesis done at the bedside. 1.5 L of milky slightly green fluid was removed from the left pleural space. This could be a chylothorax. The fluid was sent for usual analysis, including cytology, microbiology, and chemistry. We also added a cholesterol level and chylomicrons level. The patient is currently on multiple medications including propofol, norepinephrine, and fentanyl. The patient is also getting lactated Ringer's at 100 cc an hour. We will start tube feedings today. The patient's procalcitonin level was 9.74. The patient was on Vanco, and we added cefepime. Finally we drop the FiO2 from 60%, down to 50%. We will continue to follow make recommendations along the way. Patient's overall prognosis remains very guarded. Still very concerned about the possibility of malignancy. Plan dated May 28, 2024. The patient is seen today in room 262. She remains on the mechanical ventilator. Blood gases are reasonable. FiO2 was dropped down to 40%. She continues on propofol at 65 mcg/kg/min, norepinephrine at 1.2 mcg/min, fentanyl 2 mcg/kg/h. She also continues on lactated Ringer's at 100 cc an hour, and vital high-protein at 33 cc an hour. She is on cefepime and vancomycin. Culture data is thus far negative. The patient underwent thoracentesis yesterday. Those results are currently pending as well. We will continue to follow make recommendations. Prognosis is certainly guarded. Procalcitonin levels were elevated. Plan dated June 12, 2024. The patient appears to be doing much better. She is postoperative day #5, with a left-sided video-assisted thoracoscopic decortication for empyema. The patient continues on antibiotic. Labs, x-rays, medications are reviewed. I saw the patient last on May 28, at which time she was still mechanically ventilated. We will continue to follow make recommendations along the way. The patient continues on antibiotics, oxygen, bronchodilators, and incentive sarah metry. Plan dated June 13, 2024. The patient appears to be doing better. She is postoperative day #6. She had a video-assisted thoracoscopic decortication of the left lung empyema. The patient continues on antibiotic. She is on 2 L of oxygen. She denies any respiratory difficulty or distress. She does not appear to be coughing up any phlegm. We will continue to follow the patient, make recommendations along the way. She may need to be discharged home on oxygen therapy. That will be de cided before discharge. Time with Patient: Less than 30
[2024-06-13 16:46] LABS: Glucose,Whole Blood 135 mg/dL (70-110)
[2024-06-13 20:00] LABS: Glucose,Whole Blood 123 mg/dL (70-110)
--- NOTE | 2024-06-14 05:43 | P.PN ---
Subjective Progress Note Date: 06/13/24 This is a pleasant 63 years old female with past medical history of multiple medical problems including hypertension, hyperlipidemia, degenerative disc disease, fibromyalgia, multiple sclerosis, anxiety and depression. Patient presents because of worsening dyspnea for 2 days. Patient has a known case of bronchitis which is chronic and there is a 4 reported at home about 3 days prior to arrival to the hospital. Patient currently is in severe respiratory distress and cannot provide information, dental assistant medical assistant A-team was called for worsening dyspnea. Patient oxygen requirement went up to 6 L/min and was getting worse so one-time dose of IV Lasix provided and she was placed on BiPAP, she could tolerated only for 10 minutes and then she started becoming tachycardic and tachypneic with a breathing rate between 40s to 50s. She was hypoxic diaphoretic, sweating and pale. Another A-team was called and patient was moved to the ICU where she got emergent intubated. Staff tried to call the son and left a message I called the son myself Mr. Jefferson at [phone] and left a message to call back. Information was obtained from staff and medical record. Patient was afebrile, on admission She has significant worsening leukocytosis up to 40,000, hemoglobin dropped to 8.5. Platelet count were up to 561 . Liver enzymes mildly elevated. D-dimer was elevated 5.5 and CTA of the chest was obtained showing significant abnormalities : No pulmonary embolism, large left pleural effusion, loculated with complete left lung collapse with possible splenic involvement and enlarged mediastinal lymphadenopathy findings suspicious for malignancy 05/27/2024 Patient got extubated yesterday Patient today was still drowsy lethargic somewhat confused and very weak. She has large pleural effusion and she underwent thoracocentesis today with 1.5 of pleural fluid aspirated and sent for studies. Her WBC jumped up to 73 K and hemoglobin down to 6.6. As such her IV vancomycin continued, IV cefepime added and patient received 1 unit of blood transfusion today Patient also kept on IV Solu-Medrol and Ringer lactate at 100 mL/h ProCalcitonin is elevated 6.7%. 05/28/2024 Patient remains in the ICU, it looks like she was intubated the night before She remains on IV Solu-Medrol and broad-spectrum antibiotic with IV vancomycin and cefepime. No IV fluids running. No anticoagulation because of the bleeding. Hemoglobin improved 6.6 up to 7.5 Leukocytosis improving 73 down to 48 05/29/24 Patient remains in the ICU intubated and sedated, She is still getting broad-spectrum antibiotic with IV vancomycin and cefepime She remains on IV Solu-Medrol Chest x-ray showing increased haziness on the left side lung and both basal areas more on the left side. 05/31/2024 Patient breathing is better today, she talks freely Has frequent bowel movement not sure if his diarrhea about 3 to 4/day However her main problem is the breathing and the pneumonia looks better but it is complicated empyema Interventional radiologist has been consulted for possible pigtail tube insertion. 06/01/24 pt states Breathing is better, currently she is on 4 L, still has some decreased air entry on the left side. She has recent diarrhea controlled with Lomotil She has significant leukocytosis yesterday but is improving, IV Solu-Medrol lowered to 40 mg twice daily Repeat WBC from today is pending She remains on ceftriaxone based on culture results showing alphahemolytic Streptococcus. 06/02/24 Patient oxygen requirement went up from 4 L/min up to 14 L/min Patient went down for IR for pigtail placement Patient still complaining from dyspnea. She has bilateral crepitation Labs showing leukocytosis 28,000, hemoglobin 8.3 She remains on ceftriaxone and IV Solu-Medrol 40 mg and IV Protonix 06/03/2024 Patient is status post rest left upper chest pigtail placement yesterday. Today's postop day #1 Repeat chest x-ray looks catheter in place and there is significant reduction in the size of the fluid collection most likely empyema. She remains on 8 L oxygen this morning lowered to 5 L compared to 4 L yesterday. No significant tachypnea. No chest pain Patient with Eliquis resumed last night after the procedure. She is on ceftriaxone. Patient also on IV Solu-Medrol 40 mg 06/04/24 Patient with likely pleural effusion on the left side/empyema. S/p thoracocentesis however there was still some particulate therefore IR team consulted tube was placed 2 days ago. There is about 1800 cc of purulent discharge collected so far. Patient breathing is better currently on 3 L Currently chest pain is slightly worse after Patient is alternating Lovell and Dilaudid 06/05/2024 Patient is seen in follow-up today with pulmonary following. Patient continues with chest tube on the left chest wall with significant amount of purulent drainage noted. CT surgery consulted for possible thoracotomy and/or d ecortication. Patient was currently on Eliquis which needs to be held for at least 48 hours with plans on surgical intervention tentatively for 06/07/2024. Patient is afebrile with no reports of worsening chest pain or shortness of breath. Will continue on antibiotics and medication regimen at this time. Recommend PT/OT therapy evaluation and will discuss further with case management once patient is more stable for discharge. Patient has had prolonged hospitalization and would likely benefit from ECF for continued strength and mobility. 06/06/2024 Patient is seen and evaluated in follow-up this morning currently sitting up in the chair. Patient continues with a chest tube on the left with purulent drainage although some of it is clearing. Patient being followed and evaluated by CT surgery with plans of surgical intervention on 06/07/2024. Continue holding anticoagulation. Patient is afebrile with no reports of chest pain or worsening shortness of breath. Patient does have a weak cough and encouraged to continue coughing and deep breathing along with incentive spirometer use. Recommend PT/OT therapy evaluation. Patient will be n.p.o. at midnight and will await surgical report. 06/07/2024 Patient is seen this morning n.p.o. and scheduled to undergo VATS procedure with decortication with cardiothoracic surgery today. Patient continues on antibiotics left-sided empyema. Patient continues with purulent drainage and noted chest tube and will await surgical report. Pulmonary following as well and will continue on as well as continued breathing treatments. Patient with significant weakness and prolonged hospitalization recommending ECF on discharge. Patient is agreeable and case management following and will be likely going to ECF on discharge. Repeat chest x-ray and continue to monitor closely. Encouraged to increase activity as tolerated getting up out of the bed more often with frequent walks. 06/08/2024 Patient is seen and evaluated in follow-up status post lung decortication on the left and continues with 2 chest tubes with serous drainage noted. Patient is maintained on antibiotics in the form of ceftriaxone and will continue for now, currently awaiting repeat wound cultures. Patient is continued on oral prednisone along with breathing inhalational treatments with pulmonary following closely. Encouraged incentive spirometer use and increase activity as tolerated. Patient has been up and walking and encouraged the patient to sit up in the chair more often. Patient is reporting severe pain on the chest wall and reports the IV Dilaudid only lasts for short period and then the pain is 10/10. Will resume patient's home Lyrica and continue with Lovell and current regimen. Plan is for patient to go to ECF once stabilized and discharged. 06/09/2024 Patient seen and evaluated in follow-up today with multiple consultations following. Patient has 1 remaining chest tube. Continuing for now and will follow-up with serial chest x-rays. Patient reports minimal improvement in her breathing although no worsening. Patient continues to have pain at that chest tube site. Hemoglobin was noted to be 6.7 will give a unit of PRBC and follow- up with repeat labs. Patient is afebrile and cultures thus far have been negative. Encouraged to increase activity as tolerated and oral intake. Patient will be going to ECF once stabilized and cleared by consultations. Prognosis remains guarded. 06/13/2024 Patient is seen in follow-up today 06/10/2024 Patient is lying in the bed. Awake alert and oriented x 3. Patient is status post left video-assisted thoracoscopic decortication. Postoperative day 3. Both chest tubes have been removed. Currently breathing status is stable. Denies any chest pain. Some discomfort with deep breathing. Patient has been afebrile. Requiring 2 L oxygen via nasal cannula. Chest x-ray showed increasing left pleural effusion. Resolution of previous right pleural fluid. Increasing bibasilar infiltrates. Laboratory data showed WBC 11.5 hemoglobin 8.1 and platelets 303 sodium 138 potassium 4.1 chloride 104 bicarb is 32 BUN 7 and creatinine 0.36 and calcium 8.3 and magnesium 1.7. Patient is on antibiotics and of ceftriaxone 2 g every 12. Pulmonary and CT surgery is on board. Patient is also on prednisone 5 mg p.o. daily 06/11/2024 Patient is postoperative day 4. Video-assisted thoracoscopy with decortication for empyema. Chest tubes have been removed. Patient remains on antibiotics of ceftriaxone. Otherwise awake alert and oriented x 3. On 2 L oxygen via nasal cannula. Afebrile. No chest pain. No worsening shortness of breath. No nausea vomiting abdominal pain or diarrhea.Laboratory data showed WBC 11.5 hemoglobin 8.1 and platelets 303, sodium 138 potassium 4.1 chloride 104 bicarb is 32 BUN 7 and creatinine 0.36 and blood sugar 96. Magnesium 1.7. 06/13/2024 Patient is status post decortication and chest tubes have been removed. Patient is monitored closely off antibiotics and white count is normalized. Patient currently on 2 L via nasal cannula and will attempt home O2 evaluation as patient would benefit from oxygen for COPD although maintaining oxygen saturations above 92% on room air. Patient seen and evaluated by physical therapy and patient has been doing relatively well with no plans to return home with home care. Patient did receive a walker to assist with ADLs. Patient is afebrile with no worsening shortness of breath. Patient has been tolerating di et with no reported nausea or vomiting. Discharge planning being arranged with probable discharge in 24 hours. Review of systems: Constitutional: No reports of fatigue, fever, or chills Cardiovascular: No reports of chest pain or palpitations Respiratory: No reports of worsening shortness of breath or cough, reports chest wall discomfort although significantly improved since removal GI: No reports of nausea, vomiting, or diarrhea : No reports of dysuria or retention Neurovascular: reports of generalized weakness All medications have been reviewed Physical exam: GENERAL: The patient is awake, alert and oriented x 3, well-developed, thin built, elderly appearing, ill-appearing HEENT: Pupils are round and equally reacting to light. EOMI. No scleral icterus. No conjunctival pallor. Normocephalic, atraumatic. No pharyngeal erythema. No thyromegaly. CARDIOVASCULAR: S1 and S2 muffled PULMONARY: Diminished breath sounds bilaterally otherwise chest is clear to auscultation, no wheezing , no crackles. Weak inspiration. ABDOMEN: Soft, nontender, nondistended, normoactive bowel sounds. No palpable organomegaly. Thin MUSCULOSKELETAL: No joint swelling or deformity. EXTREMITIES: No cyanosis, clubbing, or pedal edema. NEUROLOGICAL: Gross neurological examination did not reveal any focal deficits. Diffusely weak SKIN: No rashes. no petechiae. Assessment: Large loculated left pleural effusion with associated complete collapse of the left lung with mediastinal lymphadenopathy suspicious for malignancy is high. Also there is involvement of the spleen and diaphragm. Status post thoracocentesis on 05/27 with 1.5 L removed. S/P bronchoscopy, with BAL, brushings, biopsies, left lower lobe. Empyema of the left, status post chest tube, status post thorascopic left lung decortication with CT surgery 06/07/2024, chest tubes have been removed. Severe acute hypoxic respiratory failure, present on admission. Requiring intubation and mechanical ventilation. Successfully extubated currently on 3 L via nasal cannula Acute COPD exacerbation Severe leukocytosis secondary to loculated pleural effusion with empyema, improved worsening anemia requiring 1 unit of blood transfusion on 05/27 New onset A-fib and RVR, currently rate controlled but no anticoagulation for severe anemia Hypertension Hyperlipidemia Degenerative disc disease Fibromyalgia Multiple sclerosis Anxiety and depression Moderate calorie protein malnutrition with a BMI of 19.8 Gait dysfunction with generalized weakness GI prophylaxis DVT prophylaxis Full code Plan: Patient is status post video-assisted thorascopic left lung decortication, with CT surgery and pulmonary following Chest tube has been removed. Patient continues on 2 to 3 L via nasal cannula and will perform home O2 eval. Patient may benefit from home oxygen on discharge to manage COPD although maintaining oxygen saturations above 92% on room air. Patient will not qualify currently for home oxygen. Encouraged incentive spirometer use at least 10 times every hour while awake IV Solu-Medrol switched to prednisone with pulmonary following, continue breathing inhalational treatments as well Patient has completed adequate amount of antibiotics and cultures are negative. Patient being closely monitored off antibiotic therapy at this time, follow-up outpatient Cardiology on the case for A-fib RVR but no anticoagulation for anemia, follow- up outpatient Pulmonary, cardiology and hematology/oncology following Patient reevaluated by PT/OT therapy and doing relatively well and case management/social work following making arrangements for discharge planning. Patient has had prolonged hospitalization and would likely benefit from ECF on discharge for continued strength and mobility although patient is reporting she would now like to go home. Home care is being arranged.. Patient has been instructed to increase activity as tolerated get up out of the bed more often and sit in the chair. Probable discharge planning in the next 24 hours Due to multiple complex medical issues, prognosis is guarded The impression and plan of care has been dictated by Carol Landaverde, Nurse Practitioner as directed. Dr. Bowen MD I have performed a history and examination and MDM of this patient, discussed the same with the dictator, and agree with the dictator's assessment and plan as written ,documented as a scribe. Based on total visit time, I have performed more than 50% of the visit. With multiple consultations following. Objective - Vital Signs Vital signs: Vital Signs Temp 98.4 F 06/13/24 03:40 Pulse 78 06/13/24 08:36 Resp 18 06/13/24 08:36 BP 119/71 06/13/24 03:40 Pulse Ox 95 06/13/24 08:16 FiO2 40 05/29/24 16:00 Intake & Output 06/12/24 06/13/24 06/13/24 18:59 06:59 18:59 Intake Total 850 60 Balance 850 60 Weight 51.8 kg Intake: IV 10 Invasive Line 10 10 Oral 840 60 Other: Voiding Method Toilet Toilet # Voids 2 1 ABP, PAP, CO, CI - Last Documented Arterial Blood Pressure 121/88 - Labs CBC & Chem 7: 06/13/24 08:06 06/13/24 08:06 Labs: Abnormal Lab Results - Last 24 Hours (Table) 06/12/24 06/12/24 06/12/24 Range/Units 06:17 11:45 17:00 WBC 12.6 H (3.8-10.6) k/uL RBC 2.90 L (3.80-5.40) m/uL Hgb 8.5 L (11.4-16.0) gm/dL Hct 27.9 L (34.0-46.0) % MCHC 30.5 L (31.0-37.0) g/dL RDW 19.5 H (11.5-15.5) % Neutrophils # 10.6 H (1.3-7.7) k/uL Creatinine (0.52-1.04) mg/dL Glucose (74-99) mg/dL POC Glucose (mg/dL) 117 H 290 H (70-110) mg/dL 06/12/24 06/13/24 06/13/24 Range/Units 19:59 08:06 08:06 WBC 11.5 H (3.8-10.6) k/uL RBC 3.01 L (3.80-5.40) m/uL Hgb 8.8 L (11.4-16.0) gm/dL Hct 30.0 L (34.0-46.0) % MCHC 29.4 L (31.0-37.0) g/dL RDW 19.2 H (11.5-15.5) % Neutrophils # (1.3-7.7) k/uL Creatinine 0.39 L (0.52-1.04) mg/dL Glucose 152 H (74-99) mg/dL POC Glucose (mg/dL) 156 H (70-110) mg/dL Microbiology - Last 24 Hours (Table) 05/27/24 09:45 Fungal Culture - Preliminary Pleural Fluid 05/27/24 09:45 Acid Fast Bacilli Smear - Preliminary Pleural Fluid Acid Fast Bacilli Culture - Preliminary 05/26/24 10:00 Acid Fast Bacilli Smear - Preliminary Bronchoalviolar Lavage - Left Acid Fast Bacilli Culture - Preliminary
[2024-06-14 06:15] LABS: Glucose,Whole Blood 92 mg/dL (70-110)
[2024-06-14 11:53] LABS: Glucose,Whole Blood 180 mg/dL (70-110)
[2024-06-14 13:34] VITALS: BMI 43.2
--- NOTE | 2024-06-14 14:51 | P.PN ---
Subjective Progress Note Date: 06/14/24 Principal diagnosis: Respiratory failure. Pulmonary consult dated May 26, 2024. 63-year-old female seen this morning in consultation. The patient was seen initially in the emergency department, on May 25. She apparently came in with complaints of shortness of breath, and low saturations. The patient has been treated recently for bronchitis with steroids and antibiotics. This morning, a rapid response was called on this patient, and, the charge nurse called me, to tell me that the patient would benefit from Lasix, and BiPAP. That was done initially, but subsequent to that, another rapid response was called on this patient, and the patient needed to be transferred to the intensive care unit, for intubation and mechanical ventilation. Currently, she is on volume assist- control, rate 20, tidal volume 350, FiO2 100%, PEEP of 5. She is on a Cardizem drip at 10 mg an hour for atrial fibrillation, propofol at 60 mcg/kg/min, and she is receiving some fluid, i.e. saline, at 1 L, as a fluid bolus. Afterwards, she will be switched to lactated Ringer's at 100 cc an hour. She had a an arterial line placed, and a central line placed. We did a right radial arterial line, and a left subclavian triple-lumen catheter. She was intubated by the CANINE SERVICE TEACHER. Current labs include a white count of 54.7, hemoglobin 8.7, hematocrit 29.7, and a platelet count of 605,000. Initial blood gases showed a pO2 of 146, pCO2 of 61, and pH is 7.24. The rate was increased from 28 to 24 breaths/min. In addition, the FiO2 was dropped down to 70%. Sodium 138, potassium 4.9, chlorides 102, CO2 28, BUN 18, creatinine 0.45. Glucose is 288. Calcium is 8.9. Lactic acid 1.3. The left chest reveals a pleural effusion, with possible loculations. An ultrasound was ordered. In addition, the patient had bronchoscopy, with airway examination, therapeutic lavage, BAL, brushings left lower lobe, and endobronchial and transbronchial biopsies left lower lobe. Progress note dated May 27, 2024. 63-year-old female seen in consultation yesterday. Please see the note above. The patient developed lopez respiratory failure, and was intubated, yesterday, May 26. She remains on mechanical ventilator. She is on volume assist- control, rate 24, tidal volume 350, FiO2 60%, to be reduced down to 50%, PEEP of 5. Blood gases show pO2 of 112, pCO2 44, pH is 7.37. The patient continues on propofol at 60 mcg/kg/min, norepinephrine at 7 mcg/min, fentanyl at 2 mcg/kg/h, LR at 100 cc an hour. The patient is on vancomycin, and we add cefepime. The patient had a left-sided thoracentesis today. 1.5 L of milky slightly green fluid was removed from the left pleural space. The patient's procalcitonin level is elevated 9.74. Current labs include a white count of 73.5, hemoglobin 6.6, hematocrit 22.2, platelet count 452,000. The patient will get 1 unit of PRBCs. In addition, sodium 139, potassium 4.8, chlorides 108, CO2 21, anion gap 10, BUN 21, creatinine 0.38. Calcium is 8.3. Magnesium is 1.9. Cultures are thus far negative. The postthoracentesis chest x-ray shows an improved left- sided pleural fluid collection, and a small to moderate size left-sided hydropneumothorax. Progress note dated May 28, 2024. 63-year-old female seen in consultation 2 days ago. The patient remains on mechanical ventilator. She is seen today in room 262. She is on volume assist-control, rate 24, tidal volume 350, FiO2 50%, PEEP of 5. Blood gases show pO2 119, pCO2 45, pH is 7.40. The FiO2 will be reduced at 40%. She is sedated with propofol at 65 mcg/kg/min, norepinephrine at 1.2 mcg/min, and fentanyl at 2 mcg/kg/h. She is getting lactated Ringer's at 100 cc an hour, and vital high-protein at 33 cc an hour. She continues on cefepime, and vancomycin. Current laboratory data includes a white count 48.1, hemoglobin 7.5, hematocrit 25.6, and platelet count 382,000. Sodium 140, potassium 4.4, chlorides 111, CO2 26, BUN 24, creatinine 0.42. Glucose is 215. Calcium 8.2. Cultures thus far are negative. That includes bronchoscopy results. Chest x-ray shows a relati vely clear right lung. There is some haziness, on the left side, with a left- sided pleural effusion. She did undergo thoracentesis yesterday. 06/04/2024, I am seeing the patient for a follow-up. The patient is doing well. Patient continues to have active drainage from the pigtail catheter. The c atheter drained approximately 730 cc overnight. The patient received a dose of thrombolytic yesterday without any major difficulties. This improve the output from the pigtail catheter. A repeat chest x-ray was done today and the findings are essentially stable. The patient has a stable loculated left-sided pneumothorax. No new labs are available from today. The pleural fluid was again sent for culture. The most recent culture was positive for Streptococcus and the patient is currently on IV Rocephin 2 g every 24 hours. She is awake and alert and communicating. Some limited pain and discomfort over the left chest and the pain is tolerable. She is on 40s of oxygen by nasal cannula with a pulse ox of 97%. Patient was evaluated today on 06/05/2024, patient is basically about the same, continues to have a significant amount of drainage seems to be purulent drainage from her left-sided pleural space/empyema, patient remains on antibiotics, she has now a relatively good sized left-sided pneumothorax and I suspect that this is a trapped lung since the pneumothorax seems to be the area where the fluid was present to begin with patient is on 3 L nasal cannula, O2 sat is 95%. Continues to have a pigtail catheter in place. And draining significant amount of fluid. The culture on the fluid came back positive for Streptococcus intermedius, patient did receive lytic therapy, however considering the worsening chest x-ray, I am recommending a l thoracic surgery consultation, wondering if the patient may eventually require decortication clinically, the patient does not seem to be in any distress Patient was evaluated 06/06/2024, clinically about the same, patient was seen by thoracic surgery, and now she is scheduled for left thoracotomy with decortication mostly because of her persistent empyema and loculated pleural effusion. And not to mention the patient seems to have a trapped lung. Patient is not improving much with medical therapy, and surgery is strongly recommended patient is on 3 L nasal cannula, hemodynamically stable, does not seem to be in distress, continues to have significant amount of purulent drainage from the left sided chest tube into the Pleur-evac continues to have what seems to be a pneumothorax/trapped lung Patient was evaluated today on 06/07/2024, patient is status post left video- assisted thoracoscopic decortication, this was done today by Dr. Castro. I saw the patient in the recovery room, reviewed her ABG, advised to place on few liters nasal cannula and titrate to O2 saturation just above 90%. Patient seems to be in pain, however her postoperative chest x-ray shows much improvement and complete reexpansion of the left lung. No acute process was noted. Chest tubes seem to be in proper position Patient was evaluated today on 06/08/2024, patient is doing fairly well. She is now postoperative day #1, bronchoscopy with left video-assisted thoracoscopic decortication done by Dr. Castro. Patient continues to have chest tube in place, will dynamically stable, no air leaks noted in the chest tubes. Chest x-ray showed complete reexpansion of the left lungWBC count is 14.1 hemoglobin 7.7 basic metabolic profile is normal renal profile is normal Reevaluated today on 06/09/2024, patient is now postoperative day #2, she is status post left video-assisted thoracoscopic decortication, patient is being treated for empyema. Pooja on antibiotics, she is on ceftriaxone, cultures were positive for Streptococcus intermedius. Chest x-ray is showing improvement, clinically the patient is feeling better. And the chest tube remains in place. Evidence of air leak, chest tube is now to waterseal. No leak is present. Continues to have some serosanguineous drainage 120 cc in the last 24 hours Was reevaluated today on 06/11/2024, she is now postoperative day #4, patient had left video-assisted thoracoscopic decortication for empyema. Cultures from the pleural effusion were positive for Streptococcus intermedius, remains on Rocephin, eventually the patient will need to be on oral antibiotics for couple more weeks postdischarge. Patient has some shortness of breath, intermittent cough, no wheezing, chest x-ray is showing small left pleural effusion, and atelectasis, not large enough to consider thoracentesis at this point yet patient did have her chest tube removed couple days ago. CBC is relatively normal WBC count is 9.9 hemoglobin 8.6 electrolytes are normal renal profile is normal Progress note dated June 12, 2024. The patient is seen today in room 364. She is postoperative day #5, S/P left video-assisted thoracoscopic decortication, for empyema. Cultures from the pleural fluid were positive for Streptococcus intermedius, and the patient remains on antibiotic. Clinically, the patient is doing better. She is currently on saline at 20 cc an hour, and 2 L by nasal cannula. Her breathing is stable, she denies any unusual or worsening shortness of breath, cough, wheezing, chest tightness, or phlegm production. Current laboratory data includes a white count of 12.6, hemoglobin 8.5, hematocrit 27.9, and platelet count 379,000. Glucose is 117. No recent chest x-ray to report. Progress note dated June 13, 2024. The patient is seen today in room 364. She is doing well. She is not receiving any IV fluids. She is on 2 L of oxygen. The patient is hoping to be discharged home soon. She is postoperative day #6, status post video-assisted thoracoscopic decortication of a left lung empyema. Her breathing is much improved, and she appears to be doing well. Current labs include a white count 11.5, hemoglobin 8.8, hematocrit 30, platelet count 3 28,000. Sodium 137, potassium 4.3, chlorides 102, CO2 30, BUN 11, creatinine 0.39. Glucose is 101. Calcium is 8.9. Chest x-ray today. Progress note dated June 14, 2024. The patient is seen today in room 364. Currently, she is on room air. She is not receiving any IV fluids. Her budesonide, and formoterol, are switched to Symbicort 160/4.5, 2 puffs twice a day. The patient is currently being evaluated for possible discharge. She is postoperative day #7. She had a left- sided video-assisted thoracoscopic decortication. The patient has no complaints today. She denies any chest pain or chest discomfort. No shortness of breath, cough, wheezing, chest tightness, or phlegm production. Objective - Vital Signs Vital signs: Vital Signs Temp 97.7 F 06/14/24 08:00 Pulse 80 06/14/24 13:02 Resp 18 06/14/24 13:02 BP 117/79 06/14/24 11:44 Pulse Ox 93 L 06/14/24 11:44 FiO2 40 05/29/24 16:00 Intake & Output 06/13/24 06/14/24 06/14/24 18:59 06:59 18:59 Intake Total 718 480 Balance 718 480 Weight 114.2 kg 114.2 kg Intake: Oral 718 480 Other: Voiding Method Toilet Toilet Toilet # Voids 3 ABP, PAP, CO, CI - Last Documented Arterial Blood Pressure 121/88 - Exam No acute distress, awake and alert, currently on room air. HEENT examination is grossly unremarkable. Neck supple. Full range of motion. No adenopathy thyromegaly or neck vein distention. Cardiovascular examination reveals regular rhythm rate. S1-S2 normal. No S3 or S4. No discernible murmur noted. Heart sounds are distant. Lungs reveal bilateral coarse rhonchi. No expiratory wheezes. No crackles. Breath sounds equal. Abdomen soft without bowel sounds. No masses or tenderness. Extremities are intact. No cyanosis clubbing or edema. Skin is without rash or lesion. Neurologic examination is brief but nonfocal. - Labs CBC & Chem 7: 06/13/24 08:06 06/13/24 08:06 Labs: Abnormal Lab Results - Last 24 Hours (Table) 06/13/24 06/13/24 06/14/24 Range/Units 16:38 19:52 11:48 POC Glucose (mg/dL) 135 H 123 H 180 H (70-110) mg/dL Assessment and Plan Assessment: Postoperative day #7, S/P left video-assisted thoracoscopic lung decortication for empyema. Acute respiratory failure, requiring intubation, and mechanical ventilation, May 26, 2024. Left lower lobe pneumonia, with empyema, secondary to Streptococcus intermedius. Left lung opacification, likely on the basis of fluid/pneumonia/mass. S/P bronchoscopy, with BAL, brushings, biopsies, left lower lobe. S/P left-sided thoracentesis, with 1.5 L of fluid removed, May 27, 2024. History of ongoing tobacco use with nicotine addiction. History of hypertension. History of hyperlipidemia. History of fibromyalgia. History of migraine cephalgia. History of ulcerative colitis. History of anxiety/depression. Plan: Plan dated May 26, 2024. The patient was transferred to the intensive care unit, for further monitoring and management. The patient was intubated by the CANINE SERVICE TEACHER, in the ICU. A right radial arterial line was placed, as well as a left subclavian triple-lumen catheter. In addition, we did bronchoscopy, airway examination, therapeutic lavage, BAL left lower lobe, brushings left lower lobe, and biopsies in the area of the left lower lobe. The patient tolerated all of this well. Labs, x-rays, medications are reviewed. The patient will also have an ultrasound of the left chest. If there is free-flowing fluid, we may wish to do a thoracentesis. The airways had lots of purulent looking secretions. There were sent for analysis. Prognosis is guarded. Plan dated May 27, 2024. The patient had a left-sided thoracentesis done at the bedside. 1.5 L of milky slightly green fluid was removed from the left pleural space. This could be a chylothorax. The fluid was sent for usual analysis, including cytology, microbiology, and chemistry. We also added a cholesterol level and chylomicrons level. The patient is currently on multiple medications including propofol, norepinephrine, and fentanyl. The patient is also getting lactated Ringer's at 100 cc an hour. We will start tube feedings today. The patient's procalcitonin level was 9.74. The patient was on Vanco, and we added cefepime. Finally we drop the FiO2 from 60%, down to 50%. We will continue to follow make recommendations along the way. Patient's overall prognosis remains very guarded. Still very concerned about the possibility of malignancy. Plan dated May 28, 2024. The patient is seen today in room 262. She remains on the mechanical ventilator. Blood gases are reasonable. FiO2 was dropped down to 40%. She continues on propofol at 65 mcg/kg/min, norepinephrine at 1.2 mcg/min, fentanyl 2 mcg/kg/h. She also continues on lactated Ringer's at 100 cc an hour, and vital high-protein at 33 cc an hour. She is on cefepime and vancomycin. Culture data is thus far negative. The patient underwent thoracentesis yesterday. Those results are currently pending as well. We will continue to follow make recommendations. Prognosis is certainly guarded. Procalcitonin levels were elevated. Plan dated June 12, 2024. The patient appears to be doing much better. She is postoperative day #5, with a left-sided video-assisted thoracoscopic decortication for empyema. The patient continues on antibiotic. Labs, x-rays, medications are reviewed. I saw the patient last on May 28, at which time she was still mechanically ventilated. We will continue to follow make recommendations along the way. The patient continues on antibiotics, oxygen, bronchodilators, and incentive spirometry. Plan dated June 13, 2024. The patient appears to be doing better. She is postoperative day #6. She had a video-assisted thoracoscopic decortication of the left lung empyema. The patient continues on antibiotic. She is on 2 L of oxygen. She denies any respiratory difficulty or distress. She does not appear to be coughing up any phlegm. We will continue to follow the patient, make recommendations along the way. She may need to be discharged home on oxygen therapy. That will be decided before discharge. Plan dated June 14, 2024. The patient is currently being evaluated for possible discharge. She is currently on room air. She is not receiving any IV fluids. Today is postop day #7. She had a decortication of the left lung, done by VATS procedure. The patient denies any shortness of breath, cough, wheezing, chest tightness, or phlegm production. She does have some discomfort at the surgical site. We will continue to follow the patient, make recommendations along the way. Time with Patient: Less than 30
[2024-06-14 15:24] VITALS: BP 122/77; PULSE 83; RESP 17; TEMP 98
[2024-06-14] MEDS ORDERED: SYMBICORT 160-4.5 MCG INHALER INHALATION SCH (20:00)
--- NOTE | 2024-06-15 16:02 | CDI ---
Documentation Clarification Form Date: 06/15/2024 03:50:29 PM From: Lexi Mckenzie Phone: Admit Date: 05/25/2024 07:27:00 PM Patient Name: Kaci Daley Visit Number: [id number] Discharge Date: 06/14/2024 03:25:00 PM ATTENTION: The Clinical Documentation Specialists (CDI) and [facility] Coding Staff appreciate your assistance in clarifying documentation. Please respond to the clarification below the line at the bottom and electronically sign. The CDI & [facility] Coding staff will review the response and follow-up if needed. Please note: Queries are made part of the Legal Health Record. If you have any questions, please contact the author of this message via ITS. Doctor/Provider: Hernando E Sheet Your patient has an abnormal lab value: Glucose 288 per 05/26 Consult Note. Please clarify if there is an additional diagnosis and/or clinical significance related to this value. History/Risk Factors: 63yo F, ACHRF w ET, Strep PNA, pleural effusion, HTN, HLD, fibromyalgia, migrainecephalgia, ulcerative colitis, anxiety, depression, malnutrition, and former smoker. Pt has been treated recently forbronchitiswith steroids and Abx. Clinical indicators: POCGlucose: 05/25 122 05/26 122-288 05/27 203-218 Treatment: Insulin Aspart 0 unit; Insulin Aspart (Novolog) 100 Unit/Ml Vial SQ 2 unit Q6H FARSHAD Is there an additional diagnosis and/or clinical significance related to the above lab result/information? [ ] Hyperglycemia due to (please specify) [ x ] Diabetes Mellitus Type II with hyperglycemia [ ] No additional diagnosis/Not clinically significant [ ] Other, please specify [ ] Unable to determine (Template Last Revised: December 2020) MTDD
--- NOTE | 2024-06-16 10:53 | CDI ---
Documentation Clarification Form Date: 06/16/2024 10:14:40 AM From: Paula Hernandez RN, CCDS Phone: [phone] Admit Date: 05/25/2024 07:27:00 PM Patient Name: Kaci Daley Visit Number: [id number] Discharge Date: 06/14/2024 03:25:00 PM ATTENTION: The Clinical Documentation Specialists (CDI) and [facility] Coding Staff appreciate your assistance in clarifying documentation. Please respond to the clarification below the line at the bottom and electronically sign. The CDI & [facility] Coding staff will review the response and follow-up if needed. Please note: Queries are made part of the Legal Health Record. If you have any questions, please contact the author of this message via ITS. Dr. Villagomez E Sheet The patient had severe leukocytosis, tachycardia and LLL pneumonia with empyema secondary to streptococcus intermedius Based on this information and the findings below, is there an additional diagnosis that is clinically appropriate for this patient? History/Risk Factors: Hyperlipidemia, Hypertension, Musculoskeletal Disorder and Skin Disorder. Presented for evaluation of dyspnea and hypoxia. Patient had been treated for the past 1 month for bronchitis. She had been on antibiotics and steroids. She has remote history of tobacco use. Clinical Indicators: 05/25-06/13 WBC: 40.2-54.7-73.5-31.4-24.5-18.2-11.5-9.9-11.5 05/25-06/13 Bands: 2-4-10-2-1 05/25 Lactic acid: 1.9 05/26 Lactic acid: 1.3 05/26-05/27 Procalcitonin: 9.74-6.77 05/25 AST 98 ALT 65 ALP 147 05/27 Pleural fluid cultures: many streptococcus intermedius 05/25 HR: 092-062-77-115; RR 24 05/26 HR: 548-479-793-131; RR 46 05/26 H&P: "Severe leukocytosis with pneumonia is highly suspected. Liver enzymes mildly elevated." 05/26 Cardiology: "Initial EKG showing sinus tachycardia with heart rate 118 bpm however repeat EKG at 23:26 showed A. fib with RVR." 05/31 IM: "S/p thoracocentesis and follow-up pleural fluid show septic workup pneumonia infection." 05/31 Pulmonary: "The patient is still recovering from an extensive left lung pneumonia that was complicated by empyema and this is likely secondary to streptococcal pneumonia." Treatment: IV Cefepime 2gm Q8H 05/27-05/30; IV Rocephin 2gm x1 on 05/25; IV Rocephin 2gm Q12H 05/30-06/12; IV Decadron 4mg x1 on 06/07; IV Solumedrol 60mg Q8H 05/26-05/31; IV Solumedrol 40mg Q12H 05/31-06/03; IV Solumderol 125Mg x1 on 06/07; IV Levophed titrated 05/26-05/30; 1L 0.9 NS IV bolus x1 on 05/25 and 05/26; IV Vancomycin 1000mg Q8H 05/25-05/26; IV Vancomycin 1000mg Q12H 05/27-05/30 Is there an additional diagnosis/diagnoses that is clinically appropriate for this patient? [x ] Sepsis, present on admission [ ] Sepsis, developed during stay, not present on admission [ ] Severe Sepsis with organ failure [ ] Septic Shock [ ] No additional diagnosis/not clinically significant [ ] Other, please specify [ ] Unable to determine SIRS Criteria: 2 or more of the following may indicate SIRS Temperature < 96.8F (36C) or > 101.0F (38.3C) Heart Rate > 90 bpm Respiratory Rate > 20 breaths/min or PaCO2 < 32 mmHg White Blood Cell Count > 12,000 or < 4,000 cells/mm3 or > 10% bands MTDD
--- NOTE | 2024-06-20 08:47 | CDI ---
Documentation Clarification Form Date: 06/20/2024 From: Leta Waters Phone: [phone] Admit Date: 05/25/2024 07:27:00 PM Patient Name: Kaci Daley Visit Number: [id number] Discharge Date: 06/14/2024 03:25:00 PM ATTENTION: The Clinical Documentation Specialists (CDI) and [facility] Coding Staff appreciate your assistance in clarifying documentation. Please respond to the clarification below the line at the bottom and electronically sign. The CDI & [facility] Coding staff will review the response and follow-up if needed. Please note: Queries are made part of the Legal Health Record. If you have any questions, please contact the author of this message via ITS. Doctor/Provider: Hernando Ley MD: There is documentation of "hypotension may be related to sedation" in the Cardiology consult 05/26 and in subsequent Cardiology progress notes. Additional clarification is requested. History/Risk Factors: 63-year-old female with a history of hypertension, ulcerative colitis, fibromyalgia, MS who presents with worsening SOB Clinical Indicators: 05/25 Triage VS: 112/73, 98.5, 120, 20, 98% 2liters nasal cannula 05/25-06/14 Low BP's: 74/48(05/26), 82/54(05/26), 82/54(05/26), 94/58(05/27), 98/62(05/27)-BPs maintained 100's over 60's to 90's after 05/26 Cardiology consult, Assessment: "Hypotension may be related to sedation" 05/26 Procedures: Left subclavian triple lumen catheter insertion, Right radial arterial line insertion, Bronchoscopy airway examination, therapeutic lavage, BAL to left lower lobe endobronchial biopsies left lower lobe, transbronchial biopsies to left lower lobe and brushes to left lower lobe. Description of Procedure, "The patient was adequately sedated with propofol and also received some additional narcotic in the form of Dilaudid, and also a paralytic in the form of Nimbex." Treatment: Levophed 4mg IV titrated drip 05/26-05/28 Cardizem 125mg-10mg/hour given 05/25-05/26 then held and dcd on 05/29 Can you please clarify the etiology of the hypotension? [ ] Hypotension due to sedation [ ] Other, please specify [ x ] Unable to determine MTDD
--- NOTE | 2024-06-21 06:20 | P.DS ---
Providers Date of admission: 05/25/24 19:27 Expected date of discharge: 06/14/24 Attending physician: Jing Anderesn Consults: 05/25/24 19:25 Consult Physician Routine Consulting Provider: Lan Klein Consult Reason/Comments: Pleural effusion Do you want consulting provider notified?: Yes Consult Physician Routine Consulting Provider: Mayco Mota Consult Reason/Comments: Pleural effusion Do you want consulting provider notified?: Yes 05/25/24 23:44 Consult Physician Routine Consulting Provider: aTm Mariscal Consult Reason/Comments: afib rvr new onset Do you want consulting provider notified?: Yes, Notify in am 06/05/24 10:59 Consult Physician Routine Consulting Provider: John Fisher Consult Reason/Comments: Pneumothorax, ? decortication Do you want consulting provider notified?: Yes Primary care physician: Stated None Hospital Course: Final diagnosis Large loculated left pleural effusion with associated complete collapse of the left lung with mediastinal lymphadenopathy suspicious for malignancy is high. Also there is involvement of the spleen and diaphragm. Status post thoracocentesis on 05/27 with 1.5 L removed. S/P bronchoscopy, with BAL, brushings, biopsies, left lower lobe. Empyema of the left, status post chest tube, status post thorascopic left lung decortication with CT surgery 06/07/2024, chest tubes have been removed. Sepsis, present on admission secondary to left loculated pleural effusion with empyema Severe acute hypoxic respiratory failure, present on admission. Requiring intubation and mechanical ventilation. Successfully extubated currently on 3 L via nasal cannula Acute COPD exacerbation Severe leukocytosis secondary to loculated pleural effusion with empyema, improved worsening anemia requiring 1 unit of blood transfusion on 05/27 New onset A-fib and RVR, currently rate controlled but no anticoagulation for severe anemia Hypertension, patient had hypotension while in the ICU likely related to sedation Hyperglycemia secondary to steroid effect Hyperlipidemia Degenerative disc disease Fibromyalgia Multiple sclerosis Anxiety and depression Moderate calorie protein malnutrition with a BMI of 19.8 Gait dysfunction with generalized weakness GI prophylaxis DVT prophylaxis Full code Discharge disposition Patient is being discharged in a stable condition with guarded prognosis to home with home care. Patient will follow-up with Dr. Forde in the outpatient setting upon discharge. Patient is to continue with current medications and close outpatient follow-up with pulmonary as scheduled. Total time taken is greater than 35 minutes. Hospital course This is a 63-year-old female who was recently admitted with increasing shortness of breath with concerns of large loculated pleural effusion with a lung collapse being followed by multiple consultations. Patient was in the ICU for some time status post chest tube and also ultimately underwent thorascopic left lung decortication with CT surgery. Patient has been treated adequately and monitored off antibiotics and will not require antibiotics on discharge. Chest tubes have been removed and patient is doing well and is being discharged home. Patient initially was going to rehab although strength has improved and patient doing well and will be going home with home care. Patient not currently on any anticoagulation due to severe anemia with new onset A-fib RVR and recommend outpatient follow-up with cardiology as well as pulmonary. There was a high suspicion for malignancy and patient will need outpatient follow-up. Patient to follow-up with hematology/oncology outpatient as well. Please refer to other consultation notes for further HPI. Currently no reports of chest pain, shortness of breath, or palpitations. Patient is afebrile. No reports of nausea or vomiting and patient is tolerating diet. Patient will be discharged home today. Guarded prognosis and high risk for readmissions given patient's significant comorbidities and noncompliance. Physical exam: Gen: This is a 63-year-old female who is awake, alert and oriented x 3, well- developed, thin built, elderly appearing, cachectic with muscle wasting noted HEENT: Head is atraumatic, normocephalic. Pupils equal, round. Sclerae is anicteric. NECK: Supple. No JVD. No lymphadenopathy. No thyromegaly. LUNGS: Diminished breath sounds bilaterally otherwise clear to auscultation. No wheezes or rhonchi. No intercostal retractions. HEART: S1, S2 are muffled ABDOMEN: Soft. Thin. Bowel sounds are present. No masses. No tenderness. EXTREMITIES: No pedal edema. No calf tenderness. NEUROLOGICAL: Patient is awake, alert and oriented x3. Cranial nerves 2 through 12 are grossly intact. Please refer to medication reconciliation sheet for a list of medications. The impression and plan of care has been dictated by Carol Landaverde, Nurse Practitioner as directed. Dr. Clayton MD I have performed a history and examination and MDM of this patient, discussed the same with the dictator, and agree with the dictator's assessment and plan as written ,documented as a scribe. Based on total visit time, I have performed more than 50% of the visit. Patient Condition at Discharge: Fair Plan - Discharge Summary Discharge Rx Participant: Yes New Discharge Prescriptions: New predniSONE 5 mg PO DAILY #30 tab Apixaban [Eliquis] 5 mg PO BID #60 tab Ipratropium-Albuterol Nebulize [Duoneb 0.5 mg-3 mg/3 ml Soln] 3 ml INHALATION RT-QID #100 each Ipratropium-Albuterol Nebulize [Duoneb 0.5 mg-3 mg/3 ml Soln] 3 ml INHALATION RT-Q2H PRN each PRN Reason: Shortness Of Breath Or Wheezing Metoprolol Tartrate [Lopressor] 50 mg PO BID 30 Days #120 tab Budesonide-Formot 160-4.5 Mcg [Symbicort 160-4.5 Mcg Inhaler] 2 puff INHALATION RT-BID 30 Days #1 each Acetaminophen Tab [Tylenol] 650 mg PO Q6HR PRN tab PRN Reason: Mild Pain Or Fever > 100.5 Continue clonazePAM [Clonazepam] 1 mg PO BID Diphenox-Atrop 2.5-0.025 mg [Lomotil] 2 tab PO QID PRN PRN Reason: Diarrhea HYDROcodone/APAP 10-325MG [[place] 10-325] 1 tab PO QID modafiniL [Provigil] 200 mg PO BID Ergocalciferol (Vitamin D2) [Drisdol (50,000 Iu)] 1,250 mcg PO KELLEY Donepezil HCl [Aricept] 10 mg PO HS Acyclovir [Zovirax] 400 mg PO TID PRN PRN Reason: OUTBREAK Albuterol Sulfate [Proair Hfa] 2 puff INHALATION RT-Q6H PRN PRN Reason: Shortness Of Breath Atorvastatin [Lipitor] 80 mg PO DAILY Cyclobenzaprine [Flexeril] 10 mg PO BID PRN PRN Reason: Muscle Spasm Albuterol Nebulized [Ventolin Nebulized] 2.5 mg INHALATION RT-Q4H PRN PRN Reason: Shortness Of Breath Budesonide [Pulmicort] 0.5 mg INHALATION RT-BID Pregabalin [Lyrica] 200 mg PO BID Butalb/APAP/Caff 50-325-40Mg [Fioricet 50-325-40] 1 tab PO Q8H PRN PRN Reason: Migraine Headache DULoxetine HCL [Cymbalta] 30 mg PO DAILY Discontinued Ferrous Sulfate [Iron (65 MG Elemental)] 325 mg PO BID Metoprolol Tartrate [Lopressor] 25 mg PO BID lisinopriL [Zestril] 10 mg PO DAILY Discharge Medication List Diphenox-Atrop 2.5-0.025 mg [Lomotil] 2 tab PO QID PRN 12/10/14 [History] clonazePAM [Clonazepam] 1 mg PO BID 12/10/14 [History] HYDROcodone/APAP 10-325MG [[place] 10-325] 1 tab PO QID 09/22/15 [History] Ergocalciferol (Vitamin D2) [Drisdol (50,000 Iu)] 1,250 mcg PO KELLEY 07/01/20 [History] modafiniL [Provigil] 200 mg PO BID 07/01/20 [History] Butalb/APAP/Caff 50-325-40Mg [Fioricet 50-325-40] 1 tab PO Q8H PRN 08/16/21 [History] Donepezil HCl [Aricept] 10 mg PO HS 08/16/21 [History] Pregabalin [Lyrica] 200 mg PO BID 08/16/21 [History] Acyclovir [Zovirax] 400 mg PO TID PRN 01/27/22 [History] Albuterol Sulfate [Proair Hfa] 2 puff INHALATION RT-Q6H PRN 01/27/22 [History] Atorvastatin [Lipitor] 80 mg PO DAILY 01/27/22 [History] Albuterol Nebulized [Ventolin Nebulized] 2.5 mg INHALATION RT-Q4H PRN 05/25/24 [History] Budesonide [Pulmicort] 0.5 mg INHALATION RT-BID 05/25/24 [History] Cyclobenzaprine [Flexeril] 10 mg PO BID PRN 05/25/24 [History] DULoxetine HCL [Cymbalta] 30 mg PO DAILY 05/25/24 [History] Apixaban [Eliquis] 5 mg PO BID #60 tab 06/02/24 [Rx] Acetaminophen Tab [Tylenol] 650 mg PO Q6HR PRN tab 06/14/24 [Rx] Budesonide-Formot 160-4.5 Mcg [Symbicort 160-4.5 Mcg Inhaler] 2 puff INHALATION RT-BID 30 Days #1 each 06/14/24 [Rx] Ipratropium-Albuterol Nebulize [Duoneb 0.5 mg-3 mg/3 ml Soln] 3 ml INHALATION RT-Q2H PRN each 06/14/24 [Rx] Ipratropium-Albuterol Nebulize [Duoneb 0.5 mg-3 mg/3 ml Soln] 3 ml INHALATION RT-QID #100 each 06/14/24 [Rx] Metoprolol Tartrate [Lopressor] 50 mg PO BID 30 Days #120 tab 06/14/24 [Rx] predniSONE 5 mg PO DAILY #30 tab 06/14/24 [Rx] Follow up Appointment(s)/Referral(s): Mary Forde MD [STAFF PHYSICIAN] - 1 Week (CALL AND MAKE TYRELL!) Shimon Wise MD [STAFF PHYSICIAN] - 06/23/24 11:30 am Bob Watkins DO [STAFF PHYSICIAN] - 2 Weeks (CALL AND MAKE TYRELL!) [facility] Visiting Nurse, [NON-STAFF] - (Will follow up with you at home :)) Ambulatory/Diagnostic Orders: Complete Blood Count w/diff [LAB.AMB] Time Frame: 3 Days, Location: None Selected Patient Instructions/Handouts: Pleural Empyema (DC), Acute Respiratory Failure (GEN) Activity/Diet/Wound Care/Special Instructions: Activity limited until follow-up Follow-up with primary care provider Follow-up with pulmonary outpatient Continue taking medications as prescribed Avoid tobacco use and exposure Follow-up with cardiology outpatient Continue holding anticoagulation until cleared by cardiology Follow-up with oncology outpatient as scheduled Keep your neurology appointment today and follow-up outpatient no copay for eliquis Discharge Disposition: HOME WITH HOME HEALTH SERVICES
== END 2024-06-14 15:25 | disposition home health service (06) | DRG 710 ==
LOC: EC 15:01 → SUPCPDRO 15:01 → 3SCARD 19:27 → 2SICU 05-26 07:42 → 3SCARD 05-30 17:51
PROVIDERS: ADMIT Hospitalist; ATTEND Hospitalist
PROC: 0BBB8ZX Excision of Left Lower Lobe Bronchus, Via Natural or Artificial Opening Endoscopic, Diagnostic (ICD-10-PCS; 2024-05-26)
PROC: 02HV33Z Insertion of Infusion Device into Superior Vena Cava, Percutaneous Approach (ICD-10-PCS; 2024-05-26)
PROC: 3E043XZ Introduction of Vasopressor into Central Vein, Percutaneous Approach (ICD-10-PCS; 2024-05-26)
PROC: 5A09357 Assistance with Respiratory Ventilation, Less than 24 Consecutive Hours, Continuous Positive Airway Pressure (ICD-10-PCS; 2024-05-26)
PROC: 0BH18EZ Insertion of Endotracheal Airway into Trachea, Via Natural or Artificial Opening Endoscopic (ICD-10-PCS; 2024-05-26)
PROC: 5A1935Z Respiratory Ventilation, Less than 24 Consecutive Hours (ICD-10-PCS; 2024-05-26)
PROC: 03HY32Z Insertion of Monitoring Device into Upper Artery, Percutaneous Approach (ICD-10-PCS; 2024-05-26)
PROC: 4A133B1 Monitoring of Arterial Pressure, Peripheral, Percutaneous Approach (ICD-10-PCS; 2024-05-26)
PROC: 4A133J1 Monitoring of Arterial Pulse, Peripheral, Percutaneous Approach (ICD-10-PCS; 2024-05-26)
PROC: 0B9F8ZX Drainage of Right Lower Lung Lobe, Via Natural or Artificial Opening Endoscopic, Diagnostic (ICD-10-PCS; 2024-05-26 07:30)
PROC: 0BDB8ZX Extraction of Left Lower Lobe Bronchus, Via Natural or Artificial Opening Endoscopic, Diagnostic (ICD-10-PCS; 2024-05-26 07:30)
PROC: 30233N1 Transfusion of Nonautologous Red Blood Cells into Peripheral Vein, Percutaneous Approach (ICD-10-PCS; 2024-05-27)
PROC: 0W9B30Z Drainage of Left Pleural Cavity with Drainage Device, Percutaneous Approach (ICD-10-PCS; 2024-05-27)
PROC: 3E0G76Z Introduction of Nutritional Substance into Upper GI, Via Natural or Artificial Opening (ICD-10-PCS; 2024-05-27)
PROC: 0BNF4ZZ Release Right Lower Lung Lobe, Percutaneous Endoscopic Approach (ICD-10-PCS; principal; 2024-06-07 08:45)
DX: A40.8 Other streptococcal sepsis (principal); J15.4 Pneumonia due to other streptococci; J86.9 Pyothorax without fistula; G35 Multiple sclerosis; J44.1 Chronic obstructive pulmonary disease with (acute) exacerbation; J44.0 Chronic obstructive pulmonary disease with (acute) lower respiratory infection; J96.21 Acute and chronic respiratory failure with hypoxia; I48.0 Paroxysmal atrial fibrillation; I27.22 Pulmonary hypertension due to left heart disease; E44.0 Moderate protein-calorie malnutrition; K51.90 Ulcerative colitis, unspecified, without complications; E11.65 Type 2 diabetes mellitus with hyperglycemia; J94.8 Other specified pleural conditions; J91.8 Pleural effusion in other conditions classified elsewhere; I10 Essential (primary) hypertension; F32.A Depression, unspecified; D53.9 Nutritional anemia, unspecified; I08.1 Rheumatic disorders of both mitral and tricuspid valves; Z79.891 Long term (current) use of opiate analgesic; Z79.51 Long term (current) use of inhaled steroids; T38.0X5A Adverse effect of glucocorticoids and synthetic analogues, initial encounter; G89.18 Other acute postprocedural pain; Z91.199 Patient's noncompliance with other medical treatment and regimen due to unspecified reason; D72.823 Leukemoid reaction; F41.1 Generalized anxiety disorder; E78.5 Hyperlipidemia, unspecified; J98.11 Atelectasis; M79.7 Fibromyalgia; R74.01 Elevation of levels of liver transaminase levels; G43.909 Migraine, unspecified, not intractable, without status migrainosus; M51.36 Other intervertebral disc degeneration, lumbar region; B95.4 Other streptococcus as the cause of diseases classified elsewhere; Z68.1 Body mass index [BMI] 19.9 or less, adult; Z87.891 Personal history of nicotine dependence; Z79.899 Other long term (current) drug therapy
CPT/HCPCS: 31623; 31624; 31625; 32551; 36415; 64999; 71045; 71046; 71250; 71275; 76604; 77012; 80048; 80053; 80202; 82150; 82465; 82565; 82607; 82728; 82747; 82805; 82945; 83540; 83550; 83605; 83615; 83735; 83880; 83921; 84100; 84132; 84145; 84155; 84157; 84478; 84484; 85025; 85027; 85379; 85610; 85652; 85730; 86850; 86870; 86880; 86900; 86901; 86920; 87040; 87070; 87075; 87102; 87116; 87205; 87206; 87496; 87498; 87502; 87529; 87634; 87635; 87798; 88104; 88108; 88305; 88312; 88341; 88342; 89050; 93005; 93306; 94002; 94003; 94640; 94660; 94760; 96361; 96365; 96367; 96375; 99291